=== PATIENT | female | born 1955 | race Caucasian/White ===

== ENCOUNTER 2019-03-23 15:50 | Observation (INO) | payer MEDICARE ==
[~2019-03-23] VITALS: Ht 167.6 cm; Wt 124.7 kg
--- OUTSIDE RECORDS SUMMARY | 2019-03-23 15:54 | XMS REPORT | Clinical Summary ---
Author Author [facility] Organization [facility] Address Unknown Phone Unavailable Care Team Providers Care Rate Examiner Name Role Phone Lu Nieto MD PCP Allergies Comments Active Allergy Reactions Severity Noted Date Anaphylaxis Hydromorphone High 12/04/2018 Fingers and lips turn black Flu Vaccine Shortness Of High 08/18/2017 [id number](36mo,Up) Breath Bleeding and vomiting Sitagliptin Other (See 08/18/2017 Comments) Bleeding and vomiting Metformin Other (See 08/18/2017 Comments) Fingers and lips turn black Pneumococcal Vaccine Shortness Of High 04/12/2018 Breath Medications End Date Status Medication Sig Dispensed Refills Start Date Active midodrine (PROAMATINE) 10 Take 10 mg by 0 MG tablet mouth See Admin Instructions. Twice a day three times a week (on dialysis days: MWF) Active lidocaine-prilocaine Apply 1 0 (EMLA) 2.5-2.5 % cream application topically 3 (three) times a week. Friday, Friday, Friday One hour prior to dialysis session to right arm Active PARoxetine (PAXIL) 20 MG Take 20 mg by 0 tablet mouth every morning. Active levothyroxine (SYNTHROID, Take 1 tablet 90 tablet 0 LEVOXYL) 25 mcg tablet (25 mcg 9 total) by mouth daily. Active insulin DETEMIR (LEVEMIR) Inject 45 5 pen 0 100 unit/mL (3 mL) Units under 9 insulin pen the skin 2 (two) times a day. Active insulin lispro (HUMALOG) Inject 10-15 5 pen 0 100 unit/mL injection pen Units under 9 the skin 3 (three) times a day before meals. Per Sliding Scale 07/23/2018 Discontinued insulin ASPART (NovoLOG) Inject 7-10 0 100 unit/mL insulin pen Units under the skin 3 (three) times a day before meals. Per sliding scale 07/23/2018 Discontinued PARoxetine (PAXIL) 20 MG Take 1 tablet 90 tablet 1 tabletIndications: (20 mg total) 8 Anxiety by mouth every morning. 04/12/2018 Discontinued lisinopril Take 20 mg by 0 (PRINIVIL,ZESTRIL) 20 mg mouth daily. tablet 07/25/2018 Discontinued levothyroxine (SYNTHROID, 1 tab daily 90 tablet 1 LEVOXYL) 25 mcg every morning 8 tabletIndications: Acquired hypothyroidism 07/14/2018 Discontinued insulin DETEMIR (LEVEMIR Inject 35 0 FLEXTOUCH U-100 INSULN) Units under 2 100 unit/mL (3 mL) the skin 2 insulin pen (two) times a day. 04/12/2018 Discontinued lidocaine-prilocaine Apply to 30 g 0 (EMLA) 2.5-2.5 % affected arm 8 creamIndications: ESRD an hour , (end stage renal disease) cover with (HCC) saran wrap prior to sticking the AVF 04/02/2018 acetaminophen-codeine Take 1 tablet 40 tablet 0 (TYLENOL WITH CODEINE #3) by mouth 8 300-30 mg per tablet every 4 (four) hours as needed for moderate pain for up to 10 days. 05/14/2018 sevelamer (RENVELA) 800 Take 2 180 tablet 0 mg tablet tablets 8 (1,600 mg total) by mouth 3 (three) times a day with meals for 30 days. 04/20/2018 miconazole (MICOTIN) 2 % Insert 1 45 g 0 vaginal cream applicator 8 into the vagina nightly for 6 days. 04/20/2018 miconazole (MICOTIN) 100 Insert 1 6 0 mg vaginal suppository suppository suppository 8 (100 mg total) into the vagina nightly for 6 days. 07/23/2018 Discontinued insulin DETEMIR (LEVEMIR Inject 35 5 pen 0 FLEXTOUCH U-100 INSULN) Units under 8 100 unit/mL (3 mL) the skin 2 insulin pen (two) times a day. 09/03/2018 Discontinued insulin DETEMIR (LEVEMIR 40 units qam 5 pen 0 FLEXTOUCH U-100 INSULN) and 40 units 8 100 unit/mL (3 mL) qpm insulin penIndications: Type 2 diabetes mellitus with hyperglycemia, with long-term current use of insulin ([facility]) 09/03/2018 Discontinued insulin ASPART (NovoLOG) 10-15 units 5 5 pen 0 100 unit/mL insulin min prior to 8 penIndications: Type 2 each meal diabetes mellitus with hyperglycemia, with long-term current use of insulin ([facility]) 08/10/2018 Discontinued PARoxetine (PAXIL) 40 MG Take 1 tablet 90 tablet 0 tabletIndications: (40 mg total) 8 Anxiety by mouth every morning. 09/03/2018 Discontinued levothyroxine (SYNTHROID, 1 tab daily 90 tablet 1 LEVOXYL) 25 mcg every morning 8 tabletIndications: Acquired hypothyroidism 12/14/2018 Discontinued PARoxetine (PAXIL) 20 MG 1 tab daily 30 tablet 1 tabletIndications: 8 Anxiety 10/03/2018 bacitracin ointment tube Apply 14 g 0 topically 2 8 (two) times a day for 30 days. 10/08/2018 ergocalciferol (VITAMIN Take 1 4 capsule 0 D2) 50,000 unit capsule capsule 8 (50,000 Units total) by mouth once a week for 30 days. 09/25/2018 Discontinued insulin DETEMIR (LEVEMIR 40 units qam 5 pen 0 FLEXTOUCH U-100 INSULN) and 40 units 8 100 unit/mL (3 mL) qpm insulin penIndications: Type 2 diabetes mellitus with hyperglycemia, with long-term current use of insulin ([facility]) 09/27/2018 Discontinued insulin ASPART (NovoLOG) 10-15 units 5 5 pen 0 100 unit/mL insulin min prior to 8 penIndications: Type 2 each meal diabetes mellitus with hyperglycemia, with long-term current use of insulin ([facility]) 12/14/2018 Discontinued levothyroxine (SYNTHROID, 1 tab daily 90 tablet 1 LEVOXYL) 25 mcg every morning 8 tabletIndications: Acquired hypothyroidism 09/10/2018 acetaminophen-codeine Take 1 tablet 20 tablet 0 (TYLENOL WITH CODEINE #3) by mouth 8 300-30 mg per tablet every 6 (six) hours as needed for moderate pain for up to 7 days. 12/14/2018 Discontinued hydrOXYzine (ATARAX) 25 1 tab as 30 tablet 1 MG tabletIndications: needed for 8 Anxiety anxiety 11/25/2018 Discontinued insulin DETEMIR (LEVEMIR 40 units qam 24 pen 1 FLEXTOUCH U-100 INSULN) and 40 units 8 100 unit/mL (3 mL) qpm insulin penIndications: Type 2 diabetes mellitus with hyperglycemia, with long-term current use of insulin ([facility]) 10/02/2018 Discontinued insulin ASPART (NovoLOG) 10-15 units 5 15 pen 1 100 unit/mL insulin min prior to 8 penIndications: Type 2 each meal diabetes mellitus with hyperglycemia, with long-term current use of insulin ([facility]) 12/14/2018 Discontinued insulin lispro (HumaLOG Inject to 15 pen 0 KwikPen Insulin) 100 10-15 units 5 8 unit/mL injection pen min prior to each meal TDD 45 units 11/25/2018 Discontinued semaglutide (OZEMPIC) Inject 0.5 mg 9 mL 1 0.25 mg or 0.5 mg(2 under the 8 mg/1.5 mL) pen injector skin once a week. 12/14/2018 Discontinued insulin DETEMIR (LEVEMIR 40 units qam 24 pen 2 FLEXTOUCH U-100 INSULN) and 40 units 9 100 unit/mL (3 mL) qpm insulin penIndications: Type 2 diabetes mellitus with hyperglycemia, with long-term current use of insulin ([facility]) 12/14/2018 Discontinued doxycycline (VIBRA-TABS) Take 1 tablet 14 tablet 0 100 MG tablet (100 mg 9 total) by mouth 2 (two) times a day for 7 days. 12/12/2018 amoxicillin (AMOXIL) 500 Please take 5 capsule 0 MG capsule 500 mg daily 9 for 5 days, please take after dialysis on your dialysis days. 02/26/2019 Discontinued hydrOXYzine (ATARAX) 25 Take 25 mg by 0 MG tablet mouth every 8 (eight) hours as needed for itching. 03/23/2019 Discontinued insulin DETEMIR (LEVEMIR) Inject 45 0 100 unit/mL (3 mL) Units under insulin pen the skin 2 (two) times a day. 03/23/2019 Discontinued insulin lispro (HUMALOG) Inject 10-15 0 100 unit/mL injection pen Units under the skin 3 (three) times a day before meals. Per Sliding Scale 03/23/2019 Discontinued levothyroxine (SYNTHROID, Take 25 mcg 0 LEVOXYL) 25 mcg tablet by mouth daily. 02/27/2019 Discontinued cefixime (SUPRAX) 400 mg Take 1 7 capsule 0 capsule capsule (400 9 mg total) by mouth daily for 7 days. 03/08/2019 acetaminophen-codeine Take 1 tablet 20 tablet 0 (TYLENOL WITH CODEINE #3) by mouth 9 300-30 mg per tablet every 4 (four) hours as needed for moderate pain for up to 10 days. 02/28/2019 Discontinued cefixime (SUPRAX) 400 mg Take 400 mg 0 capsule by mouth 9 daily. For 7 days from 02/21/19 - 02/27/19 Active Problems Problem Noted Date Complications, dialysis, catheter, mechanical 02/27/2019 Shortness of breath 12/14/2018 Right arm pain 12/02/2018 Dialysis AV fistula malfunction 12/02/2018 Overview: Added automatically from request for surgery [id number] History of weight loss surgery 09/27/2018 Labile blood pressure 09/27/2018 History of colonoscopy 2016 09/27/2018 PVD (peripheral vascular disease) 09/27/2018 Bypass graft stenosis 09/16/2018 Overview: Added automatically from request for surgery [id number] Acquired hypothyroidism 08/31/2018 Acute pulmonary edema 08/29/2018 Medical non-compliance 07/25/2018 Ingrown toenail without infection 07/25/2018 Ericka albicans infection 04/13/2018 Postural dizziness with presyncope 04/12/2018 Decubitus ulcer of buttock, stage 1 04/12/2018 Malfunction of arteriovenous dialysis fistula 03/19/2018 Last Assessment & Plan: Will need fistulogram and intervention to allow successful use of AVF after infiltration. 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, with long-term current use of insulin Morbid obesity with BMI of 40.0-44.9, adult 12/22/2017 Hemodialysis-associated hypotension 12/19/2017 ESRD (end stage renal disease) 12/08/2017 Overview: Added automatically from request for surgery [id number] Incomplete bladder emptying 11/26/2017 Vaginal atrophy 11/26/2017 Recurrent UTI 11/26/2017 Atypical chest pain 10/02/2017 Overview: W/u completed by cardiology and was negative as per pt and sister Neck injury,cervicalgia >15 years ago 09/02/2017 History of fall , since neck injury 08/19/2017 Overview: > 1 year ago ,evaluated by neurology ,has been in wheel chair since than Weakness of right side of body 08/19/2017 Overview: Difficulty with mostly R hand /foot : chronic in nature L ast Assessment & Plan: Evaluated in s/p MRI in the past Evaluated in [facility] by neurosurgery Pt also with many year history of R sided neck pain that shoots down both arms, R>L, to distal thumb/index finger. She also describes long history of upper extremity weakness and difficulty with fine finger movements which has progressed to the point that her right hand is now contracted, unable to move. She states that she has a history of frequent falls and because of this has received many serial MRIs of her spine, but thelast was roughly [address] [facility]. We do not have these records. She otherwise denies numbness and bowel/bladder incontinence. Anxiety 08/18/2017 Wheel chair as ambulatory aid 08/18/2017 Acute right ankle pain 08/18/2017 S/P right knee surgery 08/18/2017 Gait abnormality 08/18/2017 Encounters Care Team Description Date Type Specialty Aixa Whyte MA 03/23/2019 Refill Internal Medicine Lu Nieto MD 03/23/2019 Telephone Internal Medicine ProviderRashard MD 03/19/2019 Orders Only Family Medicine ProviderRashard MD 03/18/2019 Orders Only Internal Medicine Lu Nieto MD Hospitalization within last 30 days (Primary Dx); Neck pain; Chronic bilateral low back pain with right-sided sciatica; Uncontrolled type 2 diabetes mellitus with chronic kidney disease on chronic dialysis, with long-term current use of insulin (HCC); Acquired hypothyroidism; Need for home health care; Hemodialysis-associated hypotension; Anxiety; Primary insomnia 03/17/2019 Office Visit Internal Medicine Shayla Antonio RN 03/11/2019 Telephone Cardiovascular Sharda Heaton MD Joglekar, Swati, MD ESRD (end stage renal disease) ([facility]) (Primary Dx); Complications, mechanical, catheter, dialysis, initial encounter (HCC) 02/27/2019 Emergency General Internal Medicine - 02/28/2019 Jarvis Leblanc MD RUE Fistulogram 02/26/2019 Surgery Vascular Surgery Ana Hudson MD 02/26/2019 Anesthesia Vascular Surgery Event Jarvis Leblanc MD Malfunction of arteriovenous dialysis fistula, initial encounter ([facility]); ESRD (end stage renal disease) ([facility]) 02/26/2019 [facility] Vascular Surgery Encounter Adam Abarca DO Urinary tract infection without hematuria, site unspecified (Primary Dx) 02/18/2019 Emergency Emergency Medicine - 02/19/2019 02/18/2019 Travel Shayla Antonio RN 02/18/2019 Telephone Cardiovascular Jarvis Leblanc MD Malfunction of arteriovenous dialysis fistula, initial encounter ([facility]) (Primary Dx); ESRD (end stage renal disease) ([facility]) 02/17/2019 Office Visit Cardiovascular Shayla Antonio RN Malfunction of arteriovenous dialysis fistula, initial encounter ([facility]) (Primary Dx); ESRD (end stage renal disease) ([facility]) 02/17/2019 Prep for Cardiovascular Surgery Silvina Lanza MA 02/15/2019 Telephone Endocrinology Bindu Fiore MD Blood blister (Primary Dx) 02/01/2019 Emergency Emergency Medicine - 02/02/2019 02/01/2019 Travel Lu Nieto MD 02/01/2019 Telephone Family Medicine Yobani Stevenson Jr., MD Insulin overdose, accidental or unintentional, initial encounter (Primary Dx) 01/28/2019 Emergency Emergency Medicine Cony Connor MD 01/28/2019 Documentation Endocrinology Amy Chamberlain MA 01/28/2019 Telephone Endocrinology Aixa Whyte MA 01/28/2019 Telephone Internal Medicine Shayla Antonio RN 01/12/2019 Telephone Cardiovascular Shayla Antonio RN Malfunction of arteriovenous dialysis fistula, subsequent encounter (Primary Dx) 01/12/2019 Orders Only Cardiovascular Lu Nieto MD 01/07/2019 Telephone Internal Medicine Lu Nieto MD 01/05/2019 Telephone Internal Medicine Eusebio Middleton MA End stage renal disease (HCC) (Primary Dx) 12/28/2018 Orders Only Family Medicine Lu Nieto MD 12/25/2018 Telephone Internal Medicine Kami Ojeda MD Matus, Heidi, MD Clewing, Johanna, MD Shortness of breath (Primary Dx); Hypervolemia, unspecified hypervolemia type; ESRD on dialysis (HCC); Infection of arteriovenous fistula, initial encounter (HCC); Other hypervolemia 12/14/2018 [facility] Internal Medicine - Encounter 12/16/2018 Shayla Antonio RN Malfunction of arteriovenous dialysis fistula, initial encounter (HCC) (Primary Dx) 12/04/2018 Orders Only Cardiovascular Nii Galicia MD Badam, Manjulatha, MD Ogbonna, Martina C., MD Right arm pain (Primary Dx); Malfunction of arteriovenous graft, initial encounter (HCC); Malfunction of arteriovenous dialysis fistula, initial encounter (HCC) 12/02/2018 [facility] Internal Medicine - Encounter 12/07/2018 Heather Voss MD Uncontrolled type 2 diabetes mellitus with hyperglycemia (HCC) (Primary Dx); Type 2 diabetes mellitus with hyperglycemia, with long-term current use of insulin (HCC); Thyroid nodule 11/25/2018 Office Visit Endocrinology Rosanna Allison MD Visit for wound check (Primary Dx) 11/13/2018 Office Visit Cardiovascular Shayla Antonio RN 11/04/2018 Telephone Cardiovascular Beba Reddy MA 10/22/2018 Telephone Endocrinology Shayla Antonio RN 10/16/2018 Telephone Cardiovascular Lu Nieto MD Cubb, Trisha Dee, MD Uncontrolled type 2 diabetes mellitus with hyperglycemia (HCC) (Primary Dx); Type 2 diabetes mellitus with hyperglycemia, with long-term current use of insulin (HCC); Hypothyroidism, unspecified type; Thyroid nodule 10/15/2018 Office Visit Endocrinology Aixa Whyte MA 10/02/2018 Telephone Internal Medicine Jarvis Leblanc MD RIGHT UPPER EXTREMITY FISTULOGRAM, ANGIOPLASTY, under c-arm 09/28/2018 Surgery Vascular Surgery Lo Maya MD 09/28/2018 Anesthesia Vascular Surgery Event Jarvis Leblanc MD ESRD (end stage renal disease) (HCC); Malfunction of arteriovenous dialysis fistula, sequela 09/28/2018 [facility] General Internal Medicine - Encounter 09/29/2018 Miguel Mederos MD Type 2 diabetes mellitus with hyperglycemia, with long-term current use of insulin (HCC) 09/25/2018 Refill Internal Medicine Lu Nieto MD Annual physical exam (Primary Dx); Need for home health care; Anxiety; Type 2 diabetes mellitus with hyperglycemia, with long-term current use of insulin (HCC); ESRD (end stage renal disease) (HCC); Malfunction of arteriovenous dialysis fistula, subsequent encounter; Medical non-compliance; Bone disorder 09/24/2018 Office Visit Internal Medicine Ene Grimm MA Appointment 09/17/2018 Telephone Cardiology Jarvis Leblanc MD Malfunction of arteriovenous dialysis fistula, subsequent encounter (Primary Dx); End stage renal disease (HCC); Bypass graft stenosis, initial encounter (HCC) 09/16/2018 Office Visit Cardiovascular Shayla Antonio RN ESRD (end stage renal disease) (HCC) (Primary Dx); Malfunction of arteriovenous dialysis fistula, sequela 09/16/2018 Prep for Cardiovascular Surgery Jarvis Leblanc MD Malfunction of arteriovenous dialysis fistula, initial encounter (HCC) 09/14/2018 Hospital Procedural Cardiology Encounter Lu Nieto MD 09/14/2018 Telephone Internal Medicine Lu Nieto MD End stage renal disease (HCC) (Primary Dx); Bypass graft stenosis, initial encounter (HCC) 09/04/2018 Telephone Internal Medicine Shayla Antonio RN Malfunction of arteriovenous dialysis fistula, initial encounter (HCC) (Primary Dx) 09/02/2018 Orders Only Cardiovascular Shayla Antonio RN Malfunction of arteriovenous dialysis fistula, initial encounter (HCC) (Primary Dx) 09/02/2018 Orders Only Cardiovascular Bindu Fiore MD Badam, Manjulatha, MD Adrogue, Horacio E., MD Acute pulmonary edema (HCC) (Primary Dx); ESRD (end stage renal disease) (HCC); Uncontrolled type 2 diabetes mellitus with chronic kidney disease on chronic dialysis, with long-term current use of insulin (HCC); Type 2 diabetes mellitus with hyperglycemia, with long-term current use of insulin (HCC); Acquired hypothyroidism 08/29/2018 [facility] General Internal Medicine - Encounter 09/03/2018 Lu Nieto MD 08/28/2018 Telephone Internal Medicine Chino Jeffries MD Shortness of breath (Primary Dx) 08/23/2018 Emergency Emergency Medicine Aixa Whyte MA 08/10/2018 Telephone Internal Medicine Lu Nieto MD Acquired hypothyroidism 07/25/2018 Orders Only Internal Medicine Lu Nieto MD Type 2 diabetes mellitus with hyperglycemia, with long-term current use of insulin 07/23/2018 Lab Lab Lu Nieto MD Medical non-compliance (Primary Dx); Type 2 diabetes mellitus with hyperglycemia, with long-term current use of insulin; Anxiety; Hemodialysis-associated hypotension; Acquired hypothyroidism; Ingrown toenail without infection; Other specified hypotension 07/23/2018 Office Visit Internal Medicine Lu Nieto MD 07/14/2018 Telephone Internal Medicine Lu Nieto MD Essential hypertension 06/21/2018 Refill Internal Medicine Maria Esther Hernandez MA 06/15/2018 Telephone Cardiovascular Lu Nieto MD Essential hypertension 05/22/2018 Refill Internal Medicine Eva Concepcion NP ESRD (end stage renal disease) on dialysis (Primary Dx) 05/19/2018 Office Visit Cardiovascular Lu Nieto MD Essential hypertension 05/09/2018 Refill Internal Medicine Sharda Heaton MD Samuel, Leena L., MD ESRD (end stage renal disease) (Primary Dx); Postural dizziness with presyncope; Uncontrolled type 2 diabetes mellitus with stage 4 chronic kidney disease, with long-term current use of insulin 04/12/2018 Emergency General Internal Medicine - 04/14/2018 Lu Nieto MD Essential hypertension 04/11/2018 Refill Internal Medicine Jarvis Leblanc MD RIGHT UPPER EXTREMITY FISTULOGRAM, POSSIBLE ANGIOPLASTY, POSSIBLE STENTING 03/23/2018 Surgery Vascular Surgery Sangita Arriola CRNA 03/23/2018 Anesthesia Vascular Surgery Event Jarvis Leblanc MD ESRD (end stage renal disease) (Primary Dx) 03/23/2018 Hospital Vascular Surgery Encounter Jarvis Leblanc MD ESRD (end stage renal disease) 03/23/2018 Hospital Radiology Encounter after 03/22/2018 Immunizations Name Dates Previously Given Next Due Hepatitis B 11/17/2017 Family History Medical History Relation Name Comments Congenital heart disease Brother Diabetes Brother dialysis No Known Problems Brother Diabetes Father Diabetes Mother No Known Problems Sister Relation Name Status Comments Brother Brother Alive Brother Alive Father (Age 78) Maternal Grandfather Maternal Grandmother Mother (Age 63) Paternal Grandfather Paternal Grandmother Sister Alive Social History Date Tobacco Use Types Packs/Day Years Used Never Smoker Smokeless Tobacco: Never Used Alcohol Use Drinks/Week oz/Week Comments No Sex Assigned at Date Recorded Not on file Industry Job Start Date Occupation Not on file Not on file Not on file Travel End Travel History Travel Start No recent travel history available. Last Filed Vital Signs Time Taken Vital Sign Reading 03/17/2019 11:29 AM CDT Blood Pressure 122/80 03/17/2019 11:29 AM CDT Pulse 106 03/17/2019 11:29 AM CDT Temperature 36.6 C (97.8 F) 02/28/2019 8:22 AM CDT Respiratory Rate 16 03/17/2019 11:29 AM CDT Oxygen Saturation 96% - Inhaled Oxygen - Concentration 03/17/2019 11:29 AM CDT Weight 127 kg (280 lb) 03/17/2019 11:29 AM CDT Height 167.6 cm (5' 6") 03/17/2019 11:29 AM CDT Body Mass Index 45.19 Plan of Treatment Care Team Description Date Type Specialty Lu Nieto MD [address] [facility] [address] [place] [address] Shan Mar MD [address] [facility] [address] [place] [address] 03/26/2019 Office Visit Orthopedic Surgery Jarvis Leblanc MD [address] [facility] [address] [place], [place] [id number] 03/31/2019 Office Visit Cardiovascular Heather Voss MD [address] [facility] [address] [place], [place] [id number] 04/21/2019 Office Visit Endocrinology Lu Nieto MD [address] [facility] [address] [place] [address] 06/21/2019 Office Visit Internal Medicine Health Maintenance Due Date Last Done Comments BREAST CANCER SCREENING 11/17/2015 11/17/2013, 05/06/2011, 05/08/2010 65+ PNEUMOCOCCAL VACCINE 2018 (1 of 2 - PCV13) INFLUENZA VACCINE 07/19/2019 Postponed from 06/17/2019 (Not Indicated) DIABETIC FOOT EXAM 09/24/2019 09/24/2018 DIABETIC RETINAL EYE EXAM 01/16/2020 01/15/2018 PNEUMOCOCCAL 09/17/2025 Postponed from 2018 POLYSACCHARIDE VACCINE (Patient Refused) AGE 65 AND OVER SHINGLES VACCINES (#1) 09/17/2025 Postponed from 2003 (Patient Refused) COLON CANCER SCREENING 09/17/2026 09/17/2016 CERVICAL CANCER SCREENING Discontinued Implants Device Identifier Shelf Expiration Date Model / Serial / Lot Implanted Type Area Manufactur er 02/15/2020 [id number] / / [id number] Catheter Dialysis Glidepath Central Left: Chest BARD [id number] Symmetric Tip - Venous PERIPHERAL [id number] Catheters VASCULAR Implanted: Qty: 1 on 02/26/2019 by Jarvis Leblanc MD 09/16/2019 [id number] / / [id number] Catheter Dialysis Glidepath Implantabl N/A: N/A BARD [id number] Symmetric Tip - e Infusion PERIPHERAL [id number] Ports or VASCULAR Implanted: 12/02/2017 (Quantity not Accessorie on file) s 05/16/2020 [id number] / / [id number] Catheter Dialysis Glidepath Implantabl N/A: N/A BARD [id number] Symmetric Tip - e Infusion PERIPHERAL [id number] Ports or VASCULAR Implanted: 09/02/2018 (Quantity not Accessorie on file) s 06/03/2022 [id number] / / [id number] Clip Ligtng Weck Hemoclip Plus W/ Medical Right: Arm, WECK Tape Ti Sm - [id number] Clips for Lower CLOSURE Implanted: Qty: 2 on 12/22/2017 by Internal SYSTEMS Jarvis Leblanc MD Use 06/30/2022 [id number] / / [id number] Clip Ligtng Weck Hemoclip Plus W/ Medical Right: Arm, TELEFLEX Tape Ti Med - [id number] Clips for Lower MEDICAL Implanted: Qty: 2 on 12/22/2017 by Internal Jarvis Leblanc MD Use [id number] / / Catheter Quality Control Checker 4x75cm 6mm Conquest - Surgical N/A: N/A BARD [id number] Implants; PERIPHERAL Implanted: 03/23/2018 (Quantity not Expanders; VASCULAR on file) Extenders; Surgical Wires Procedures Comments Procedure Name Priority Date/Time Associated Diagnosis OBTAIN MEDICAL RECORDS Routine 03/19/2019 OBTAIN MEDICAL RECORDS Routine 03/18/2019 POC GLUCOSE Routine 02/28/2019 12:14 PM CDT POC GLUCOSE Routine 02/28/2019 8:24 AM CDT ESTIMATED GFR Routine 02/28/2019 4:15 AM CDT COMPREHENSIVE METABOLIC Routine 02/28/2019 PANEL 4:15 AM CDT HC COMPLETE BLD COUNT Routine 02/28/2019 W/AUTO DIFF 4:15 AM CDT TROPONIN Timed 02/28/2019 4:15 AM CDT ECG 12-LEAD STAT 02/28/2019 1:32 AM CDT POC GLUCOSE Routine 02/27/2019 11:32 PM CDT POC GLUCOSE Routine 02/27/2019 7:55 PM CDT HEPATITIS B SURFACE STAT 02/27/2019 ANTIGEN 6:37 PM CDT POC GLUCOSE Routine 02/27/2019 4:40 PM CDT HEMODIALYSIS Routine 02/27/2019 4:07 PM CDT XR CHEST 1 VW PORTABLE STAT 02/27/2019 2:36 PM CDT ESTIMATED GFR Routine 02/27/2019 1:23 PM CDT HC COMPLETE BLD COUNT Routine 02/27/2019 W/AUTO DIFF 1:23 PM CDT COMPREHENSIVE METABOLIC Routine 02/27/2019 PANEL 1:23 PM CDT POC GLUCOSE Routine 02/26/2019 10:01 AM CDT POC GLUCOSE Routine 02/26/2019 9:24 AM CDT INSERTION, CATHETER, 02/26/2019 Malfunction of CENTRAL VENOUS, TUNNELED, 9:00 AM CDT arteriovenous dialysis WITH PORT, WITH C-ARM fistula, initial FLUOROSCOPIC GUIDANCE encounter (HCC) ESRD (end stage renal disease) (HCC) VENOGRAM, EXTREMITY 02/26/2019 Malfunction of 9:00 AM CDT arteriovenous dialysis fistula, initial encounter (HCC) ESRD (end stage renal disease) (HCC) OR [place] < 1 HOUR Routine 02/26/2019 9:00 AM CDT POC GLUCOSE Routine 02/26/2019 8:22 AM CDT POC PANEL 4 Routine 02/26/2019 7:50 AM CDT US LIMITED STAT 02/19/2019 12:10 AM CDT ESTIMATED GFR STAT 02/18/2019 10:58 PM CDT COMPREHENSIVE METABOLIC STAT 02/18/2019 PANEL 10:58 PM CDT HC COMPLETE BLD COUNT STAT 02/18/2019 W/AUTO DIFF 10:58 PM CDT URINALYSIS STAT 02/18/2019 10:34 PM CDT ECG 12-LEAD STAT 02/02/2019 12:33 AM CDT XR FOOT 3+ VW RIGHT STAT 02/02/2019 12:18 AM CDT HC COMPLETE BLD COUNT STAT 02/01/2019 W/AUTO DIFF 11:52 PM CDT ESTIMATED GFR STAT 02/01/2019 10:04 PM CDT BASIC METABOLIC PANEL STAT 02/01/2019 10:04 PM CDT POC GLUCOSE Routine 01/28/2019 4:00 PM CDT POC GLUCOSE Routine 01/28/2019 2:49 PM CDT POC GLUCOSE Routine 01/28/2019 1:56 PM CDT POC GLUCOSE Routine 01/28/2019 1:06 PM CDT POC GLUCOSE Routine 12/16/2018 12:33 PM LAYER OFF POC GLUCOSE Routine 12/16/2018 11:07 AM LAYER OFF POC GLUCOSE Routine 12/16/2018 8:41 AM LAYER OFF HEMODIALYSIS Routine 12/16/2018 6:56 AM LAYER OFF ESTIMATED GFR Routine 12/16/2018 4:43 AM LAYER OFF BASIC METABOLIC PANEL Routine 12/16/2018 4:43 AM LAYER OFF HC COMPLETE BLD COUNT Routine 12/16/2018 W/AUTO DIFF 4:43 AM LAYER OFF VANCOMYCIN LEVEL, RANDOM Routine 12/16/2018 4:43 AM LAYER OFF POC GLUCOSE Routine 12/15/2018 8:52 PM LAYER OFF POC GLUCOSE Routine 12/15/2018 5:42 PM LAYER OFF US DUPLEX HEMODIALYSIS Routine 12/15/2018 AVG AVF ACCESS 3:45 PM LAYER OFF POC GLUCOSE Routine 12/15/2018 11:26 AM LAYER OFF POC GLUCOSE Routine 12/15/2018 10:14 AM LAYER OFF POC GLUCOSE Routine 12/15/2018 7:38 AM LAYER OFF ESTIMATED GFR Routine 12/15/2018 5:26 AM LAYER OFF HC COMPLETE BLD COUNT Routine 12/15/2018 W/AUTO DIFF 5:26 AM LAYER OFF PHOSPHORUS LEVEL Routine 12/15/2018 5:26 AM LAYER OFF MAGNESIUM LEVEL Routine 12/15/2018 5:26 AM LAYER OFF BASIC METABOLIC PANEL Routine 12/15/2018 5:26 AM LAYER OFF VITAMIN D 25 HYDROXY Routine 12/15/2018 LEVEL 5:26 AM LAYER OFF PARATHYROID HORMONE Routine 12/15/2018 5:26 AM LAYER OFF TRANSFERRIN LEVEL Routine 12/15/2018 5:26 AM LAYER OFF TOTAL IRON BINDING Routine 12/15/2018 CAPACITY 5:26 AM LAYER OFF FERRITIN LEVEL Routine 12/15/2018 5:26 AM LAYER OFF POC GLUCOSE Routine 12/14/2018 11:42 PM LAYER OFF POC GLUCOSE Routine 12/14/2018 10:46 PM LAYER OFF POC GLUCOSE Routine 12/14/2018 9:44 PM LAYER OFF TROPONIN Timed 12/14/2018 5:10 PM LAYER OFF BLOOD CULTURE, AEROBIC & Routine 12/14/2018 ANAEROBIC 5:10 PM LAYER OFF POC GLUCOSE Routine 12/14/2018 3:58 PM LAYER OFF HEMODIALYSIS Routine 12/14/2018 2:03 PM LAYER OFF LACTIC ACID LEVEL, SEPSIS Timed 12/14/2018 - NOW AND REPEAT 2X EVERY 12:47 PM LAYER OFF 3 HOURS TROPONIN Timed 12/14/2018 12:47 PM LAYER OFF XR CHEST 1 VW PORTABLE STAT 12/14/2018 12:14 PM LAYER OFF ECG ED PRELIMINARY Routine 12/14/2018 INTERPRETATION 10:47 AM LAYER OFF POC GLUCOSE Routine 12/14/2018 10:47 AM LAYER OFF ESTIMATED GFR STAT 12/14/2018 10:37 AM LAYER OFF LACTIC ACID LEVEL, SEPSIS Timed 12/14/2018 - NOW AND REPEAT 2X EVERY 10:37 AM LAYER OFF 3 HOURS PROTHROMBIN TIME WITH INR STAT 12/14/2018 10:37 AM LAYER OFF PARTIAL THROMBOPLASTIN STAT 12/14/2018 TIME (PTT) 10:37 AM LAYER OFF B NATRIURETIC PEPTIDE STAT 12/14/2018 10:37 AM LAYER OFF TROPONIN STAT 12/14/2018 10:37 AM LAYER OFF COMPREHENSIVE METABOLIC STAT 12/14/2018 PANEL 10:37 AM LAYER OFF HC COMPLETE BLD COUNT STAT 12/14/2018 W/AUTO DIFF 10:37 AM LAYER OFF ECG 12-LEAD STAT 12/14/2018 10:08 AM LAYER OFF POC GLUCOSE Routine 12/07/2018 4:04 PM LAYER OFF ESTIMATED GFR Routine 12/07/2018 3:55 PM LAYER OFF BASIC METABOLIC PANEL Routine 12/07/2018 3:55 PM LAYER OFF POC GLUCOSE Routine 12/07/2018 3:15 PM LAYER OFF CBC HEMOGRAM Routine 12/07/2018 2:30 PM LAYER OFF POC GLUCOSE Routine 12/07/2018 12:27 PM LAYER OFF HEMODIALYSIS Routine 12/07/2018 12:[address] UPPER EXTREMITY W Routine 12/07/2018 CONTRAST RIGHT 10:35 AM LAYER OFF POC GLUCOSE Routine 12/07/2018 7:56 AM LAYER OFF VANCOMYCIN LEVEL, RANDOM Routine 12/07/2018 4:59 AM LAYER OFF POC GLUCOSE Routine 12/07/2018 4:36 AM LAYER OFF POC GLUCOSE Routine 12/06/2018 8:32 PM LAYER OFF POC GLUCOSE Routine 12/06/2018 4:51 PM LAYER OFF POC GLUCOSE Routine 12/06/2018 12:11 PM LAYER OFF US DUPLEX VENOUS UPPER Routine 12/06/2018 EXTREMITY RIGHT 11:30 AM LAYER OFF POC GLUCOSE Routine 12/06/2018 8:06 AM LAYER OFF GRAM STAIN Routine 12/06/2018 7:44 AM LAYER OFF URINE CULTURE Routine 12/06/2018 7:44 AM LAYER OFF URINALYSIS SCREEN AND Routine 12/06/2018 MICROSCOPY, WITH REFLEX 5:18 AM LAYER OFF TO CULTURE POC GLUCOSE Routine 12/05/2018 8:35 PM LAYER OFF POC GLUCOSE Routine 12/05/2018 4:39 PM LAYER OFF POC GLUCOSE Routine 12/05/2018 11:14 AM LAYER OFF ESTIMATED GFR Routine 12/05/2018 9:00 AM LAYER OFF BASIC METABOLIC PANEL Routine 12/05/2018 9:00 AM LAYER OFF POC GLUCOSE Routine 12/05/2018 7:28 AM LAYER OFF POC GLUCOSE Routine 12/05/2018 5:41 AM LAYER OFF ESTIMATED GFR STAT 12/05/2018 4:28 AM LAYER OFF COMPREHENSIVE METABOLIC STAT 12/05/2018 PANEL 4:28 AM LAYER OFF HC COMPLETE BLD COUNT Routine 12/05/2018 W/AUTO DIFF 2:30 AM LAYER OFF VENOUS BLOOD GAS STAT 12/05/2018 2:20 AM LAYER OFF BLOOD CULTURE, AEROBIC & Routine 12/05/2018 ANAEROBIC 2:20 AM LAYER OFF BLOOD CULTURE, AEROBIC & Routine 12/05/2018 ANAEROBIC 2:15 AM LAYER OFF POC GLUCOSE Routine 12/05/2018 1:51 AM LAYER OFF ESTIMATED GFR STAT 12/05/2018 1:33 AM LAYER OFF BASIC METABOLIC PANEL STAT 12/05/2018 1:33 AM LAYER OFF BETA HYDROXYBUTYRATE STAT 12/05/2018 1:33 AM LAYER OFF POC GLUCOSE Routine 12/04/2018 9:18 PM LAYER OFF PARTIAL THROMBOPLASTIN Routine 12/04/2018 TIME (PTT) 4:30 PM LAYER OFF PROTHROMBIN TIME WITH INR Routine 12/04/2018 4:30 PM LAYER OFF ESTIMATED GFR Routine 12/04/2018 1:51 PM LAYER OFF HEPATITIS B SURFACE STAT 12/04/2018 ANTIGEN 1:51 PM LAYER OFF BASIC METABOLIC PANEL Routine 12/04/2018 1:51 PM LAYER OFF HC COMPLETE BLD COUNT Routine 12/04/2018 W/AUTO DIFF 1:51 PM LAYER OFF POC GLUCOSE Routine 12/04/2018 1:50 PM LAYER OFF XR CHEST 1 VW PORTABLE STAT 12/04/2018 9:12 AM LAYER OFF MAGNESIUM LEVEL Routine 12/04/2018 9:00 AM LAYER OFF ESTIMATED GFR Routine 12/04/2018 9:00 AM LAYER OFF BASIC METABOLIC PANEL Routine 12/04/2018 9:00 AM LAYER OFF CBC WITH PLATELET AND Routine 12/04/2018 DIFFERENTIAL 9:00 AM LAYER OFF ECG 12-LEAD STAT 12/04/2018 8:36 AM LAYER OFF POC GLUCOSE Routine 12/04/2018 7:15 AM LAYER OFF POC GLUCOSE Routine 12/04/2018 5:28 AM LAYER OFF POC GLUCOSE Routine 12/04/2018 3:35 AM LAYER OFF POC GLUCOSE Routine 12/04/2018 2:07 AM LAYER OFF POC GLUCOSE Routine 12/04/2018 1:32 AM LAYER OFF POC GLUCOSE Routine 12/03/2018 8:42 PM LAYER OFF POC GLUCOSE Routine 12/03/2018 5:52 PM LAYER OFF IR TUNNELED DIALYSIS Routine 12/03/2018 CATHETER PLACEMENT 5:29 PM LAYER OFF POC GLUCOSE Routine 12/03/2018 2:59 PM LAYER OFF HEMODIALYSIS Routine 12/03/2018 12:10 PM LAYER OFF POC GLUCOSE Routine 12/03/2018 10:47 AM LAYER OFF US DUPLEX HEMODIALYSIS STAT 12/03/2018 AVG AVF ACCESS 9:54 AM LAYER OFF ESTIMATED GFR Routine 12/03/2018 5:30 AM LAYER OFF HEMOGLOBIN A1C Routine 12/03/2018 5:30 AM LAYER OFF PARTIAL THROMBOPLASTIN Routine 12/03/2018 TIME (PTT) 5:30 AM LAYER OFF PROTHROMBIN TIME WITH INR Routine 12/03/2018 5:30 AM LAYER OFF COMPREHENSIVE METABOLIC Routine 12/03/2018 PANEL 5:30 AM LAYER OFF HC COMPLETE BLD COUNT Routine 12/03/2018 W/AUTO DIFF 5:30 AM LAYER OFF POC GLUCOSE Routine 12/03/2018 5:16 AM LAYER OFF POC GLUCOSE Routine 12/03/2018 12:06 AM LAYER OFF MANUAL DIFFERENTIAL STAT 12/02/2018 8:38 PM LAYER OFF ESTIMATED GFR STAT 12/02/2018 8:38 PM LAYER OFF COMPREHENSIVE METABOLIC STAT 12/02/2018 PANEL 8:38 PM LAYER OFF CBC WITH PLATELET AND STAT 12/02/2018 DIFFERENTIAL 8:38 PM LAYER OFF POC GLUCOSE Routine 11/25/2018 Uncontrolled type 2 8:35 AM LAYER OFF diabetes mellitus with hyperglycemia (HCC) US THYROID Routine 11/19/2018 Thyroid nodule 1:47 PM LAYER OFF THYROID PEROXIDASE Routine 10/17/2018 Hypothyroidism, ANTIBODY 10:59 AM LAYER OFF unspecified type T4, FREE Routine 10/17/2018 Hypothyroidism, 10:59 AM LAYER OFF unspecified type THYROID STIMULATING Routine 10/17/2018 Hypothyroidism, HORMONE 10:59 AM LAYER OFF unspecified type POC GLUCOSE Routine 10/15/2018 Uncontrolled type 2 1:25 PM LAYER OFF diabetes mellitus with hyperglycemia (HCC) POC GLUCOSE Routine 09/29/2018 8:26 AM LAYER OFF POC GLUCOSE Routine 09/28/2018 5:35 PM LAYER OFF POC GLUCOSE Routine 09/28/2018 1:37 PM LAYER OFF HEMODIALYSIS Routine 09/28/2018 12:33 PM LAYER OFF HEPATITIS B SURFACE STAT 09/28/2018 ANTIGEN 12:31 PM LAYER OFF POC GLUCOSE Routine 09/28/2018 10:56 AM LAYER OFF POC GLUCOSE Routine 09/28/2018 8:23 AM LAYER OFF OR FL < 1 HOUR Routine 09/28/2018 8:05 AM LAYER OFF FISTULOGRAPHY, DIALYSIS 09/28/2018 End stage renal disease SHUNT, AND DECLOTTING 7:30 AM LAYER OFF (HCC) Bypass graft stenosis, initial encounter ([facility]) Case Notes @[id number] SHAYLA POSTED CASE VIA DEPOT-R/S FROM 09/21 TO 09/28-08/19 12/04TW POC PANEL 4 Routine 09/28/2018 6:37 AM LAYER OFF US DUPLEX HEMODIALYSIS Routine 09/14/2018 Malfunction of AVG AVF ACCESS 2:15 PM CDT arteriovenous dialysis fistula, initial encounter (HCC) POC GLUCOSE Routine 09/03/2018 12:05 PM CDT POC GLUCOSE Routine 09/03/2018 7:23 AM CDT POC GLUCOSE Routine 09/02/2018 8:25 PM CDT POC GLUCOSE Routine 09/02/2018 6:14 PM CDT POC GLUCOSE Routine 09/02/2018 1:49 PM CDT IR TUNNELED DIALYSIS Routine 09/02/2018 CATHETER PLACEMENT 12:35 PM CDT POC GLUCOSE Routine 09/02/2018 12:27 PM CDT POC GLUCOSE Routine 09/02/2018 7:38 AM CDT HC COMPLETE BLD COUNT Routine 09/02/2018 W/AUTO DIFF 5:30 AM CDT ESTIMATED GFR Routine 09/02/2018 4:00 AM CDT BASIC METABOLIC PANEL Routine 09/02/2018 4:00 AM CDT MAGNESIUM LEVEL Routine 09/02/2018 4:00 AM CDT POC GLUCOSE Routine 09/01/2018 8:47 PM CDT POC GLUCOSE Routine 09/01/2018 2:17 PM CDT POC GLUCOSE Routine 09/01/2018 11:30 AM CDT HEMODIALYSIS Routine 09/01/2018 9:38 AM CDT US DUPLEX HEMODIALYSIS Routine 09/01/2018 AVG AVF ACCESS 8:45 AM CDT POC GLUCOSE Routine 09/01/2018 7:31 AM CDT POC GLUCOSE Routine 09/01/2018 4:38 AM CDT ESTIMATED GFR Routine 09/01/2018 4:00 AM CDT VITAMIN D 25 HYDROXY Routine 09/01/2018 LEVEL 4:00 AM CDT BASIC METABOLIC PANEL Routine 09/01/2018 4:00 AM CDT PHOSPHORUS LEVEL Routine 09/01/2018 4:00 AM CDT MAGNESIUM LEVEL Routine 09/01/2018 4:00 AM CDT HC COMPLETE BLD COUNT Routine 09/01/2018 W/AUTO DIFF 4:00 AM CDT POC GLUCOSE Routine 08/31/2018 8:51 PM CDT POC GLUCOSE Routine 08/31/2018 4:29 PM CDT POC GLUCOSE Routine 08/31/2018 3:26 PM CDT ULTRAFILTRATION Routine 08/31/2018 1:47 PM CDT POC GLUCOSE Routine 08/31/2018 1:29 PM CDT KAPPA LAMBDA FREE LIGHT Routine 08/31/2018 CHAIN WITH RATIO 9:43 AM CDT POC GLUCOSE Routine 08/31/2018 7:29 AM CDT HC COMPLETE BLD COUNT Routine 08/31/2018 W/AUTO DIFF 4:20 AM CDT SERUM ELECTROPHORESIS Routine 08/31/2018 4:00 AM CDT ESTIMATED GFR Routine 08/31/2018 4:00 AM CDT FOLATE LEVEL Routine 08/31/2018 4:00 AM CDT VITAMIN B12 LEVEL Routine 08/31/2018 4:00 AM CDT BASIC METABOLIC PANEL Routine 08/31/2018 4:00 AM CDT PHOSPHORUS LEVEL Routine 08/31/2018 4:00 AM CDT MAGNESIUM LEVEL Routine 08/31/2018 4:00 AM CDT HIV AG/AB COMBINATION Routine 08/31/2018 4:00 AM CDT POC GLUCOSE Routine 08/30/2018 8:49 PM CDT POC GLUCOSE Routine 08/30/2018 4:40 PM CDT POC GLUCOSE Routine 08/30/2018 11:31 AM CDT ECHOCARDIOGRAM 2D Routine 08/30/2018 COMPLETE W MMODE SPECTRAL 11:15 AM CDT COLOR DOPPLER ([id number]) HEMODIALYSIS Routine 08/30/2018 10:52 AM CDT POC GLUCOSE Routine 08/30/2018 8:07 AM CDT XR CHEST 1 VW PORTABLE STAT 08/30/2018 7:53 AM CDT PARTIAL THROMBOPLASTIN Routine 08/30/2018 TIME (PTT) 4:18 AM CDT PROTHROMBIN TIME WITH INR Routine 08/30/2018 4:18 AM CDT HC COMPLETE BLD COUNT Routine 08/30/2018 W/AUTO DIFF 4:18 AM CDT LACTIC ACID LEVEL, SEPSIS Routine 08/30/2018 - NOW AND REPEAT 2X EVERY 4:00 AM CDT 3 HOURS TROPONIN Routine 08/30/2018 4:00 AM CDT ESTIMATED GFR Routine 08/30/2018 4:00 AM CDT PHOSPHORUS LEVEL Routine 08/30/2018 4:00 AM CDT MAGNESIUM LEVEL Routine 08/30/2018 4:00 AM CDT BASIC METABOLIC PANEL Routine 08/30/2018 4:00 AM CDT POC GLUCOSE Routine 08/30/2018 1:04 AM CDT HEPATITIS B SURFACE STAT 08/29/2018 ANTIGEN 8:30 PM CDT VENOUS BLOOD GAS STAT 08/29/2018 4:55 PM CDT THYROID STIMULATING STAT 08/29/2018 HORMONE 4:45 PM CDT T4, FREE STAT 08/29/2018 4:45 PM CDT LIPID PANEL STAT 08/29/2018 4:45 PM CDT HEMOGLOBIN A1C STAT 08/29/2018 4:45 PM CDT PHOSPHORUS LEVEL STAT 08/29/2018 4:45 PM CDT MAGNESIUM LEVEL STAT 08/29/2018 4:45 PM CDT LACTIC ACID LEVEL, SEPSIS STAT 08/29/2018 - NOW AND REPEAT 2X EVERY 4:45 PM CDT 3 HOURS ESTIMATED GFR STAT 08/29/2018 4:45 PM CDT B NATRIURETIC PEPTIDE STAT 08/29/2018 4:45 PM CDT TROPONIN STAT 08/29/2018 4:45 PM CDT COMPREHENSIVE METABOLIC STAT 08/29/2018 PANEL 4:45 PM CDT HC COMPLETE BLD COUNT STAT 08/29/2018 W/AUTO DIFF 4:45 PM CDT XR CHEST 1 VW PORTABLE STAT 08/29/2018 4:40 PM CDT ECG 12-LEAD STAT 08/29/2018 4:30 PM CDT ECG 12-LEAD STAT 08/23/2018 1:50 PM CDT THYROID STIMULATING Routine 07/23/2018 Type 2 diabetes mellitus HORMONE 3:14 PM CDT with hyperglycemia, with long-term current use of insulin HEMOGLOBIN A1C Routine 07/23/2018 Type 2 diabetes mellitus 3:14 PM CDT with hyperglycemia, with long-term current use of insulin DC REMOVAL TUNNELED CV Routine 05/19/2018 ESRD (end stage renal CATH W/O SUBQ PORT OR 10:20 AM CDT disease) on dialysis PUMP POC GLUCOSE Routine 04/14/2018 12:43 PM CDT ECHOCARDIOGRAM 2D Routine 04/14/2018 COMPLETE W MMODE SPECTRAL 9:23 AM CDT COLOR DOPPLER ([id number]) POC GLUCOSE Routine 04/14/2018 8:08 AM CDT ZZESTIMATED GFR Routine 04/14/2018 5:07 AM CDT MAGNESIUM LEVEL Routine 04/14/2018 5:07 AM CDT BASIC METABOLIC PANEL Routine 04/14/2018 5:07 AM CDT HC COMPLETE BLD COUNT Routine 04/14/2018 W/AUTO DIFF 5:07 AM CDT PHOSPHORUS LEVEL Routine 04/14/2018 5:07 AM CDT POC GLUCOSE Routine 04/13/2018 9:06 PM CDT XR CHEST 2 VW Routine 04/13/2018 5:53 PM CDT POC GLUCOSE Routine 04/13/2018 5:00 PM CDT HEPATITIS B SURFACE Routine 04/13/2018 ANTIGEN 12:05 PM CDT POC GLUCOSE Routine 04/13/2018 11:17 AM CDT XR CHEST 1 VW PORTABLE Routine 04/13/2018 10:30 AM CDT HEMODIALYSIS Routine 04/13/2018 10:14 AM CDT IRON LEVEL STAT 04/13/2018 10:14 AM CDT TRANSFERRIN LEVEL STAT 04/13/2018 10:14 AM CDT FERRITIN LEVEL STAT 04/13/2018 10:14 AM CDT POC GLUCOSE Routine 04/13/2018 7:34 AM CDT TROPONIN Routine 04/13/2018 12:36 AM CDT TOTAL IRON BINDING Routine 04/13/2018 CAPACITY 12:36 AM CDT FERRITIN LEVEL Routine 04/13/2018 12:36 AM CDT ZZESTIMATED GFR Routine 04/13/2018 12:36 AM CDT C-REACTIVE PROTEIN Routine 04/13/2018 12:36 AM CDT T4, FREE Routine 04/13/2018 12:36 AM CDT THYROID STIMULATING Routine 04/13/2018 HORMONE 12:36 AM CDT MAGNESIUM LEVEL Routine 04/13/2018 12:36 AM CDT BASIC METABOLIC PANEL Routine 04/13/2018 12:36 AM CDT PHOSPHORUS LEVEL Routine 04/13/2018 12:36 AM CDT B NATRIURETIC PEPTIDE Routine 04/13/2018 12:20 AM CDT SEDIMENTATION RATE Routine 04/13/2018 12:20 AM CDT HC COMPLETE BLD COUNT Routine 04/13/2018 W/AUTO DIFF 12:20 AM CDT HEMOGLOBIN A1C Routine 04/13/2018 12:20 AM CDT POC GLUCOSE Routine 04/12/2018 9:07 PM CDT POC GLUCOSE Routine 04/12/2018 8:01 PM CDT POC GLUCOSE Routine 04/12/2018 6:04 PM CDT POC GLUCOSE Routine 04/12/2018 5:15 PM CDT URINALYSIS SCREEN AND Routine 04/12/2018 MICROSCOPY, WITH REFLEX 4:20 PM CDT TO CULTURE GRAM STAIN Routine 04/12/2018 4:20 PM CDT URINE CULTURE Routine 04/12/2018 4:20 PM CDT ECG ED PRELIMINARY Routine 04/12/2018 INTERPRETATION 3:52 PM CDT DC CRITICAL CARE, E/M Routine 04/12/2018 30-74 MINUTES 3:52 PM CDT ZZESTIMATED GFR STAT 04/12/2018 3:38 PM CDT LACTIC ACID LEVEL STAT 04/12/2018 3:38 PM CDT HC COMPLETE BLD COUNT STAT 04/12/2018 W/AUTO DIFF 3:38 PM CDT TROPONIN STAT 04/12/2018 3:38 PM CDT LIPASE LEVEL STAT 04/12/2018 3:38 PM CDT MAGNESIUM LEVEL STAT 04/12/2018 3:38 PM CDT PHOSPHORUS LEVEL STAT 04/12/2018 3:38 PM CDT COMPREHENSIVE METABOLIC STAT 04/12/2018 PANEL 3:38 PM CDT ECG 12-LEAD Routine 04/12/2018 3:16 PM CDT POC GLUCOSE Routine 03/23/2018 8:45 AM CDT OR [place] < 1 HOUR Routine 03/23/2018 ESRD (end stage renal 8:40 AM CDT disease) FISTULOGRAPHY, DIALYSIS 03/23/2018 ESRD (end stage renal SHUNT, AND DECLOTTING 8:30 AM CDT disease) POC PANEL 4 Routine 03/23/2018 7:26 AM CDT after 03/22/2018 Results * Obtain medical records (03/19/2019) Only the most recent of 2 results within the time period is included. Narrative Performed At * POC glucose (02/28/2019 12:14 PM CDT) Only the most recent of 93 results within the time period is included. POC glucose 195 (H) 65 - 99 mg/dL [facility] Comment: [facility] Notified RN Meter ID: [id number] Draw Operator: Lynette Spicer Performing Organization Address [facility] Cent[facility] Phone Number [facility] DEPARTMENT OF [address] [place] [address] PATHOLOGY AND Pant[facility] MEDICINE [address] * Estimated GFR (02/28/2019 4:15 AM CDT) Only the most recent of 20 results within the time period is included. Estimated GFR 16 (A) mL/min/1.73 m2 [facility] Comment: [facility]OSPITAL CatergoryUnitsInte rpretation G1 >=90 Normal or high G2 60-89Mildly decreased [id number] Mildly to moderately decreased [id number] Moderately to severely decreased G4 15-29Severely decreased G5 <15Kidney failure The eGFR was calculated using the Chronic Kidney Disease Epidemiology Collaboration (CKD-EPI) equation. Interpretation is based on recommendations of the National Kidney Foundation-Kidney Disease Outcomes Quality Initiative (NKF-KDOQI) published in 2014. Specimen Plasma specimen Performing Organization Address [facility] Cent[facility]ode Phone Number [facility] DEPARTMENT OF [address] [place] [address] PATHOLOGY AND [facility] MEDICINE [address] * Troponin (02/28/2019 4:15 AM CDT) Only the most recent of 8 results within the time period is included. Troponin <0.30 0.00 - 0.30 ng/mL [facility] Comment: HOSPITAL 0.30 - 1.49 ng/mlMay indicate increased risk of acute coronary syndrome. >=1.5 ng/ml Consistent with acute myocardial infarction. The diagnostic value of a single normal or non-diagnostic result is questionable.Serial samples at 2-6 hour intervals are required to rule out acute myocardial injury. Specimen Plasma specimen Performing Organization Address City/[facility]/Zipcode Phone Number [facility] DEPARTMENT OF [address] [place] [address] PATHOLOGY AND GENOMIC MEDICINE [address] * CBC with platelet and differential (02/28/2019 4:15 AM CDT) Only the most recent of 20 results within the time period is included. WBC 5.85 4.50 - 11.00 k/uL [facility] RBC 4.22 4.20 - 5.50 m/uL [facility] HGB 13.4 12.0 - 16.0 g/dL [facility] HCT 44.5 37.0 - 47.0 % [facility] MCV 105.5 (H) 82.0 - 100.0 fL [facility] MCH 31.8 27.0 - 34.0 pg [facility] MCHC 30.1 (L) 31.0 - 37.0 g/dL [facility] RDW - SD 52.6 37.0 - 55.0 fL [facility] MPV 11.3 8.8 - 13.2 fL [facility] Platelet count 136 (L) 150 - 400 k/uL [facility] Nucleated RBC 0.00 /100 WBC [facility] Neutrophils 70.5 (H) 39.0 - 69.0 % [facility] Lymphocytes 15.0 (L) 25.0 - 45.0 % [facility] Monocytes 9.1 0.0 - 10.0 % [facility] Eosinophils 3.8 0.0 - 5.0 % [facility] Basophils 0.9 0.0 - 1.0 % [facility] Immature granulocytes 0.7Comment: "Immature 0.0 - 1.0 % [facility] granulocytes" (promyelocytes, HOSPITAL myelocytes, metamyelocytes) Specimen Blood Performing Organization Address City/[facility]/Zipcode Phone Number [facility] DEPARTMENT OF [address] [place] [id number] PATHOLOGY AND GENOMIC MEDICINE [address] * Comprehensive metabolic panel (02/28/2019 4:15 AM CDT) Only the most recent of 9 results within the time period is included. Sodium 136 135 - 148 mEq/L [facility] Potassium 4.4 3.5 - 5.0 mEq/L [facility] Chloride 97 (L) 98 - 112 mEq/L [facility] CO2 23 (L) 24 - 31 mEq/L [facility] Anion gap 16@ANIO (H) 7 - 15 mEq/L [facility] BUN 21 8 - 23 mg/dL [facility] Creatinine 2.89 (H) 0.50 - 0.90 mg/dL [facility] Glucose 232 (H) 65 - 99 mg/dL [facility] Calcium 8.1 (L) 8.8 - 10.2 mg/dL [facility] Protein 7.7 6.3 - 8.3 g/dL [facility] Comment: HOSPITAL 4.6-7.0 g/dL 1 week 4.4-7.6 g/dL 7 months-1year 5.1-7.3 g/dL 1-2 years5.6-7 .5 g/dL >3 years6.0-8 .0 g/dL 18-150 6.3-8.3 g/dL Albumin 3.1 (L) 3.5 - 5.0 g/dL [facility] A/G ratio 0.7 0.7 - 3.8 [facility] Alkaline phosphatase 176 (H) 35 - 104 U/L [facility] AST 26 10 - 35 U/L [facility] ALT 15 5 - 50 U/L [facility] Total bilirubin 0.3 0.0 - 1.2 mg/dL [facility] Specimen Plasma specimen Performing Organization Address City/State/Zipcode Phone Number [facility] DEPARTMENT OF [address] [place] [id number] [facility]Y [facility] [place] [address] HOSPITAL * ECG 12 lead (02/28/2019 1:32 AM CDT) Only the most recent of 7 results within the time period is included. Ventricular rate 85 [facility] Atrial rate 85 [facility] DC interval 126 [facility] QRSD interval 144 [facility] QT interval 406 [facility] QTC interval 483 [facility] P axis 1 66 [facility] QRS axis 1 36 [facility] T wave axis 55 [facility] EKG impression Normal sinus rhythm-Right [facility] M[facility] bundle branch block-Abnormal ECG-In automated comparison with ECG of 02-FEB-2019 00:33,-No significant change was found- Narrative Performed At Performing Organization Address City/[facility]/Zipcode Phone Number [facility] MUSE [address] [place] [address] * Hepatitis B surface antigen (02/27/2019 6:37 PM CDT) Only the most recent of 5 results within the time period is included. Hepatitis B surface Ag Non-reactive Non-reactive [facility] Specimen Blood Performing Organization Address [facility] Phone Number [facility] DEPARTMENT OF [address] [place] [phone] PATHOLOGY AND GENOMIC MEDICINE [place] [phone] [facility] * XR Chest 1 Vw Portable (02/27/2019 2:36 PM CDT) Only the most recent of 6 results within the time period is included. Narrative Performed At EXAMINATION:XR CHEST 1 VW PORTABLE [facility] CLINICAL HISTORY:chest pain COMPARISON:December 14, 2018 IMPRESSION: 1.Left jugular catheter extends into the right atrium. 2.Heart size is within normal limits for 3.There are some volume loss of the lung bases with mild vascular congestion. [facility]-[id number] Procedure Note Hm Interface, Radiology Results Incoming - 02/27/2019 2:40 PM CDT EXAMINATION: XR CHEST 1 VW PORTABLE CLINICAL HISTORY: chest pain COMPARISON: December 14, 2018 IMPRESSION: 1. Left jugular catheter extends into the right atrium. 2. Heart size is within normal limits for 3. There are some volume loss of the lung bases with mild vascular congestion. [facility]-[id number] Performing Organization Address [facility] Cent[facility]ode Phone Number [facility] [address] [place] [address] * OR [place] < 1 Hour (02/26/2019 9:00 AM CDT) Only the most recent of 3 results within the time period is included. Narrative Performed At EXAMINATION:OR [place]< 1 HOUR [facility] C-arm fluoroscopy was requested in OR. LOCATION: [facility] OR Room #1 PROCEDURE: Removal of Rt. TDC/Insertion of LT. TDC START: 08:40 END: 09:00 FLUORO TIME: 01:49 minutes DOSE: 24.23 TECH(S): CECE IMPRESSION: Separate operative report will be issued by the physician performing the procedure. [id number] Procedure Note Interface, Radiology Results Incoming - 02/26/2019 9:29 PM CDT EXAMINATION: OR FL < 1 HOUR C-arm fluoroscopy was requested in OR. LOCATION: [facility] Room #1 PROCEDURE: Removal of Rt. TDC/Insertion of LT. TDC START: 08:40 END: 09:00 FLUORO TIME: 01:49 minutes DOSE: 24.23 TECH(S): CECE IMPRESSION: Separate operative report will be issued by the physician performing the procedure. [id number] Performing Organization Address City/[facility]/[place] [address] * POC panel 4 (02/26/2019 7:50 AM CDT) Only the most recent of 3 results within the time period is included. POC sodium 135 135 - 148 mmol/L [facility] POC potassium 4.1 3.5 - 5.0 mmol/L [facility] POC hematocrit 43 37 - 47 % [facility] Comment: HOSPITAL Meter ID: [id number] Draw Operator: Ray Maria POC glucose 317 (H) 65 - 99 mg/dL [facility] Performing Organization Address [facility] Phone Number [facility] DEPARTMENT OF [address] [place] [address] PATHOLOGY AND GENOMIC MEDICINE [address] * [place] Limited (02/19/2019 12:10 AM CDT) Narrative Performed At EXAMINATION:US LIMITED [facility] CLINICAL HISTORY:Abd painunspecified, check size of bladder COMPARISON:None. IMPRESSION: Focused sonographic examination of the urinary bladder was performed. Grayscale and color Doppler images obtained. Urinary bladder measures 6.2 x 4.4 x 7.8 cm, with estimated volume of 111.4 mL. Patient noted unable to void further, representing mildly elevated postvoid residual. [facility]-[id number] Procedure Note Interface, Radiology Results Incoming - 02/19/2019 12:52 AM CDT EXAMINATION: US LIMITED CLINICAL HISTORY: Abd pain unspecified, check size of bladder COMPARISON: None. IMPRESSION: Focused sonographic examination of the urinary bladder was performed. Grayscale and color Doppler images obtained. Urinary bladder measures 6.2 x 4.4 x 7.8 cm, with estimated volume of 111.4 mL. Patient noted unable to void further, representing mildly elevated postvoid residual. [facility]-[id number] Performing Organization Address [facility] Phone Number [facility] [address] [place] [address] * Urinalysis (02/18/2019 10:34 PM CDT) Glucose, UA Trace (A) Negative [facility] Bilirubin, UA Positive@UBIL (A) Negative [facility] Ketones, UA 1+ (A) Negative [facility] Specific gravity, UA 1.020 1.001 - 1.035 [facility] Blood, UA Large (A) Negative [facility] pH, UA 7.0 5.0 - 8.5 [facility] Protein, UA 3+ (A) Negative [facility] Urobilinogen, UA <2.0 <2.0 [facility] Nitrite, UA Positive (A) Negative [facility] Leukocyte esterase, UA Small (A) Negative [facility] Color, UA Red [facility] Appearance, UA Cloudy [facility] Specimen Urine Performing Organization Address [facility] [place] [address] PATHOLOGY AND GENOMIC MEDICINE, [address] * XR Foot 3+ Vw Right (02/02/2019 12:18 AM CDT) Narrative Performed At EXAMINATION:XR FOOT 3VW RIGHT [facility] CLINICAL HISTORY:big toe blisterr o osteo COMPARISON:None. IMPRESSION: No evidence of acute right foot fracture or dislocation. No radiographic evidence of osteomyelitis. Diffuse osteopenia. Diffuse soft tissue swelling. [facility]-[id number] Procedure Note Hm Interface, Radiology Results Incoming - 02/02/2019 12:28 AM CDT EXAMINATION: XR FOOT 3 VW RIGHT CLINICAL HISTORY: big toe blister r o osteo COMPARISON: None. IMPRESSION: No evidence of acute right foot fracture or dislocation. No radiographic evidence of osteomyelitis. Diffuse osteopenia. Diffuse soft tissue swelling. [facility]-[id number] Performing Organization Address [facility] Phone Number [facility] [address] [place] [address] * Basic metabolic panel (02/01/2019 10:04 PM CDT) Only the most recent of 14 results within the time period is included. Sodium 138 135 - 148 mEq/L [facility] Potassium 5.1 (H) 3.5 - 5.0 mEq/L [facility] Chloride 104 98 - 112 mEq/L [facility] CO2 21 (L) 24 - 31 mEq/L [facility] Anion gap 13@ANIO 7 - 15 mEq/L [facility] BUN 68 (H) 8 - 23 mg/dL [facility] Creatinine 4.82 (H) 0.50 - 0.90 mg/dL [facility] Glucose 390 (H) 65 - 99 mg/dL [facility] Calcium 8.0 (L) 8.8 - 10.2 mg/dL [facility] Specimen Plasma specimen Performing Organization Address [facility] Phone Number [facility] DEPARTMENT OF [address] [place] [address] PATHOLOGY AND GENOMIC MEDICINE [address] * Vancomycin level, random (12/16/2018 4:43 AM LAYER OFF) Only the most recent of 2 results within the time period is included. Vancomycin, random 20.4 ug/mL [facility] Specimen Serum Performing Organization Address [facility] Phone Number [facility] DEPARTMENT OF [address] [place] [address] PATHOLOGY AND GENOMIC MEDICINE [address] * Us duplex hemodialysis avg avf access (12/15/2018 3:45 PM LAYER OFF) Only the most recent of 4 results within the time period is included. Narrative Performed At [facility] Vascular Ultrasound Laboratory AV Graft - Fistula Report [address] [place] [address] Pat.Name:CHRISTY FRANK Mark.ID:[id number] .Date: 12/15/2018 Refer.MD:CARLOS CHISHOLM MD Exam Time: 2:58:00 PMStudy Type:AV Graft - Fistula Height:66inWeight:278lb BSA: 2.3 u3TMSKfw:1955,63Y Sex: FEMALESonogrphr: Markos Leyva, RVT, RDMS Pat. Stat.:Inpatient Room:[address] TapeVol: , CPT - 4: 53510 Echo Event ID:[id number] Order ID:[id number] Reason for Study:Swelling and edema. PMH of DM, HTN, SOB, ESRD on HD. History / Clinical:DM, Obesity, HTN, CHF Procedures:Colorflow, Grayscale/2D, Pulsed wave Doppler Race:C SUMMARY: DUPLEX SCAN OBSERVATIONS: RIGHT: There is patent radial artery to cephalic vein AV fistula noted in the forearm. Disturbed, pulsatile colorflow, and low resistance Doppler signals are noted in the feeding brachial artery, through the anastomosis and into the draining cephalic vein. There is color disturbance with elevated velocities noted at the radiocephalic anastomosis ratio 5.3. Draining vein from cephalic vein connect to basilic vein in the upper arm with arterialized Doppler signals. Retrograde flow noted in the distal radial artery, distal to the anastomosis. DOPPLER FINDINGS: ARTERY/VEIN LOCATIONPSV (cm/sec) RIGHTBrachial Artery Proximal-third 232 Mid-fztoe455 Distal- Radial ArteryProximal-third 278 Mid-bzryb862 Distal-abimk598 Klpcbcxhefl387 (ratio: 5.3) Cephalic Vein (forearm) Fok-wykkw32Zndizzvv-cnfri 87 VOLUME FLOW: Buppquvg194 cc/min 687 cc/min PRELIMINARY FINDINGS:(edited) 1. Patent radial-cephalic AV-fistula noted in the right forearm. 2. >50% stenosis of the right radiocephalic AV fistula anastomosis (ratio 5.3) 3. Retrograde flow of the right radial artery distal to the anastomosis. 4. Volume flows ranges from 656 cc/min to 687 cc/min. PHYSICIAN INTERPRETATION: Adequate flow volume. More than 50% stenosis. Retrograde flow of the right radial artery distal to the anastomosis. Signed 12/15/2018 07:49 PM Rio Chapin MD, RPVI Procedure Note Interface, Radiology Results In - 12/15/2018 7:50 PM [facility] Vascular Ultrasound Laboratory AV Graft - Fistula Report [address] [place] [address] Pat.Name: CHRISTY FRANK Pat.ID: [id number] .Date: 12/15/2018 Refer.MD: CARLOS CHISHOLM MD Exam Time: 2:58:00 PM Study Type:AV Graft - Fistula Height: 66in Weight: 278lb BSA: 2.3 m2 Age: 9 1955,63Y Sex: FEMALE Sonogrphr: Markos Leyva RVT, [facility] Pat. Stat.:Inpatient Room: [address] Vol: , CPT - 4: 85422 Echo Event ID:[id number] Order ID: [id number] Reason for Study:Swelling and edema. PMH of DM, HTN, SOB, ESRD on HD. History / Clinical:DM, Obesity, HTN, CHF Procedures:Colorflow, Grayscale/2D, Pulsed wave Doppler Race: C SUMMARY: DUPLEX SCAN OBSERVATIONS: RIGHT: There is patent radial artery to cephalic vein AV fistula noted in the forearm. Disturbed, pulsatile colorflow, and low resistance Doppler signals are noted in the feeding brachial artery, through the anastomosis and into the draining cephalic vein. There is color disturbance with elevated velocities noted at the radiocephalic anastomosis ratio 5.3. Draining vein from cephalic vein connect to basilic vein in the upper arm with arterialized Doppler signals. Retrograde flow noted in the distal radial artery, distal to the anastomosis. DOPPLER FINDINGS: ARTERY/VEIN LOCATION PSV (cm/sec) RIGHT Brachial Artery Proximal-third 232 Mid-third 245 Distal-third 251 Radial Artery Proximal-third 278 Mid-third 141 Distal-third 144 Anastomosis 771 (ratio: 5.3) Cephalic Vein (forearm) Mid-third 92 Proximal-third 87 VOLUME FLOW: Brachial 656 cc/min 687 cc/min PRELIMINARY FINDINGS:(edited) 1. Patent radial-cephalic AV-fistula noted in the right forearm. 2. >50% stenosis of the right radiocephalic AV fistula anastomosis (ratio 5.3) 3. Retrograde flow of the right radial artery distal to the anastomosis. 4. Volume flows ranges from 656 cc/min to 687 cc/min. PHYSICIAN INTERPRETATION: Adequate flow volume. More than 50% stenosis. Retrograde flow of the right radial artery distal to the anastomosis. Signed 12/15/2018 07:49 PM Rio Chapin MD, RPVI Performing Organization Address City/[facility]/Zipcode Phone Number [facility] [address] [place] [address] * Total iron binding capacity (12/15/2018 5:26 AM LAYER OFF) Only the most recent of 2 results within the time period is included. Iron level 49 37 - 145 ug/dL [facility] Iron binding capacity 200 200 - 400 ug/dL [facility] % Saturation 24.5 15.0 - 38.0 % [facility] Specimen Plasma specimen Performing Organization Address [facility] Phone Number [facility] DEPARTMENT OF [address] [place] [address] PATHOLOGY AND GENOMIC MEDICINE [address] * Vitamin D 25 hydroxy level (12/15/2018 5:26 AM LAYER OFF) Only the most recent of 2 results within the time period is included. Vitamin D, 25-hydroxy 8.2 (L) 30.0 - 150.0 ng/mL [facility] Comment: HOSPITAL This assay reports the sum of 25-hydroxy vitamin D3 and 25-hydroxy vitamin D2. Reference range: 0-17 years: Deficiency: less than 20ng/mL Optimum level: greater than or equal to 20 ng/mL. 18 years and older: Deficiency: less than 20ng/mL Insufficiency: 20-29 ng/mL Optimum Level: 30-80 ng/mL The assay reportable range is 3.4155.9 ng/mL. Levels higher than 150 ng/mL may be associated with toxicity. If toxicity is clinically suspected and the reported result is >155.9 ng/mL,contact lab for alternative methods to obtain a definitivelevel. If separate quantitation of 25-hydroxy vitamin D3 and 25-hydroxy vitamin D2 is needed, please contact lab for alternative methods. Specimen Blood Performing Organization Address City/[facility]/Zipcode Phone Number [facility] [place] [address] PATHOLOGY AND [facility] MEDICINE [address] * Transferrin level (12/15/2018 5:26 AM LAYER OFF) Only the most recent of 2 results within the time period is included. Transferrin 175 (L) 200 - 360 mg/dL [facility] Specimen Plasma specimen Performing Organization Address [facility] Cent[facility]ode Phone Number [facility] [place] [address] PATH[address]Y [address] * Phosphorus level (12/15/2018 5:26 AM LAYER OFF) Only the most recent of 8 results within the time period is included. Phosphorus 3.8 2.4 - 4.5 mg/dL [facility] Specimen Plasma specimen Performing Organization Address [facility] Phone Number [facility] [place] [address] PATHOLOGY AND [facility] MEDICINE [address] * Parathyroid hormone (12/15/2018 5:26 AM LAYER OFF) PTH 255 (H) 15 - 65 pg/mL [facility] Specimen Blood Performing Organization Address [facility] Phone Number [facility] [place] [address] PATHOLOGY AND [facility] MEDICINE [address] * Magnesium level (12/15/2018 5:26 AM LAYER OFF) Only the most recent of 10 results within the time period is included. Magnesium 2.1 1.6 - 2.4 mg/dL [facility] Specimen Plasma specimen Performing Organization Address [facility] Phone Number [facility] [place] [address] PATHOLOGY AND [facility] MEDICINE [address] * Ferritin level (12/15/2018 5:26 AM LAYER OFF) Only the most recent of 3 results within the time period is included. Ferritin level 1,238 (H) 13 - 150 ng/mL [facility] Specimen Plasma specimen Performing Organization Address City/[facility]/Zipcode Phone Number [facility] [place] [place] [address] PATHOLOGY AND GENOMIC MEDICINE [address] * Blood culture, aerobic & anaerobic (12/14/2018 5:10 PM LAYER OFF) Only the most recent of 3 results within the time period is included. Blood culture isolate No growth after 5 days of [facility] incubation. HOSPITAL Comment: Specimen Information Specimen Source: Blood Specimen Site: Antecubital, left Specimen Blood - Antecubital, left Performing Organization Address [facility] Phone Number [facility] [place] [address] PATHOLOGY AND GENOMIC MEDICINE [address] * Lactic acid level, SEPSIS - Now and repeat 2x every 3 hours (12/14/2018 12:47 PM LAYER OFF) Only the most recent of 4 results within the time period is included. Lactic acid 1.1 0.5 - 2.2 mmol/L [facility] Specimen Blood Performing Organization Address City/[facility] Phone Number [facility] [place] [address] PATHOLOGY AND GENOMIC MEDICINE [address] * ECG ED Preliminary Interpretation - Not an Order (12/14/2018 10:47 AM LAYER OFF) Only the most recent of 2 results within the time period is included. Narrative Performed At Kami Ojeda MD 12/17/20182:38 PM ECG ED Preliminary Interpretation - Not an Order Performed by: Kami Ojeda MD Authorized by: Kami Ojeda MD ECG reviewed by ED Physician in the absence of a career and guidance counselor: yes Interpretation: Interpretation: abnormal Rate: ECG rate:92 ECG rate assessment: normal Rhythm: Rhythm: sinus rhythm Conduction: Conduction: abnormal Abnormal conduction: complete RBBB * Partial thromboplastin time, activated (12/14/2018 10:37 AM LAYER OFF) Only the most recent of 4 results within the time period is included. PTT 30.2 23.0 - 36.0 sec [facility] Comment: HOSPITAL PTT therapeutic range for unfractionated heparin is 61.0-112.0 seconds which corresponds to Anti-Xa 0.3-0.7 U/ml. Specimen Blood Performing Organization Address City/[facility] Phone Number [facility] [place] [address] PATHOLOGY AND GENOMIC MEDICINE [address] * Prothrombin time with INR (12/14/2018 10:37 AM LAYER OFF) Only the most recent of 4 results within the time period is included. Prothrombin time 13.6 11.5 - 14.5 sec [facility] INR 1.1 [facility] Comment: HOSPITAL The International Normalized Ratio (INR) is a therapeutic monitoring tool for patients who are stable on oral anticoagulant therapy. An INR of 2.0-3.0 is suggested for deep vein thrombosis/pulmonary embolism. Specimen Blood Performing Organization Address City/[facility] Phone Number [facility] [place] [address] PATHOLOGY AND GENOMIC MEDICINE [address] * B natriuretic peptide (12/14/2018 10:37 AM LAYER OFF) Only the most recent of 3 results within the time period is included. BNP 62 0 - 100 pg/mL [facility] Specimen Blood Performing Organization Address [facility] Phone Number [facility] [place] [address] PATHOLOGY AND GENOMIC MEDICINE [address] * CBC hemogram (12/07/2018 2:30 PM LAYER OFF) WBC 6.06 4.50 - 11.00 k/uL [facility] RBC 3.10 (L) 4.20 - 5.50 m/uL [facility] HGB 9.7 (L) 12.0 - 16.0 g/dL [facility] HCT 31.6 (L) 37.0 - 47.0 % [facility] MCV 101.9 (H) 82.0 - 100.0 fL [facility] MCH 31.3 27.0 - 34.0 pg [facility] MCHC 30.7 (L) 31.0 - 37.0 g/dL [facility] RDW - SD 49.1 37.0 - 55.0 fL [facility] MPV 11.1 8.8 - 13.2 fL [facility] Platelet count 210 150 - 400 k/uL [facility] Nucleated RBC 0.00 /100 WBC [facility] Performing Organization Address City/State/Zipcode Phone Number [facility] DEPARTMENT OF [address] [place] [address] PATHOLOGY AND GENOMIC MEDICINE [facility] [address] [place] [address] * CT Upper Extremity W Contrast Rt (12/07/2018 10:35 AM LAYER OFF) Narrative Performed At EXAMINATION:CT UPPER EXTREMITY W CONTRAST RIGHT [facility] INDICATION:Arm swelling. Concern for abscess or loculation. COMPARISON: None available TECHNIQUE: Helical axial CT images of the right upper extremity extending from the shoulder to the fingers were acquired following the administration of intravenous contrast. Sagittal and coronal planar reformats reviewed. Automated exposure control and/or iterative reconstruction was used to reduce patient dose. FINDINGS: 1.The patient was unable to assume the appropriate positioning for complete evaluation of the arm. The patient was moved to a different scanner with a larger bore but the entirety of the arm could not be imaged due to inability to properly position the patient. 2.Evaluation of the right arm demonstrates no evidence of an intramuscular or subcutaneous collection. There is subcutaneous edema involving the distal arm just proximal to the elbow with additional thickening of the skin and subcutaneous edema of the forearm suspicious for cellulitis. 3.As detailed above, the lateral aspect of the soft tissues of the arm and forearm are not included within the [id number]. 4.Assessment of the arm and forearm demonstrates evidence of an arteriovenous fistula. There are no definite findings to suggest occlusion of the fistula. 5.Other findings: No definite abnormality is seen in the right axilla. Imaged portion of the right body wall is grossly unremarkable. There are a few nonspecific right inguinal lymph nodes. No suspicious acute bony abnormality is seen. Mild to moderate osteoarthrosis of the right glenohumeral joint. IMPRESSION: Please note that the patient could not be appropriately positioned for the examination and therefore the entirety of the extremity could not fit into the CT gantry despite attempted scanning on multiple scanners. The lateral soft tissues of the arm and forearm could not be appropriately imaged. 1.Within the limitations of the study, no evidence of an organized collection in the arm or forearm. 2.Subcutaneous edema involving the arm and forearm, nonspecific and may be secondary to underlying cellulitis or lymphedema. 3.Additional findings and details as above. Procedure Note [facility], Radiology Results Incoming - 12/07/2018 10:55 AM LAYER OFF EXAMINATION: CT UPPER EXTREMITY W CONTRAST RIGHT INDICATION: Arm swelling. Concern for abscess or loculation. COMPARISON: None available TECHNIQUE: Helical axial CT images of the right upper extremity extending from the shoulder to the fingers were acquired following the administration of intravenous contrast. Sagittal and coronal planar reformats reviewed. Automated exposure control and/or iterative reconstruction was used to reduce patient dose. FINDINGS: 1. The patient was unable to assume the appropriate positioning for complete evaluation of the arm. The patient was moved to a different scanner with a larger bore but the entirety of the arm could not be imaged due to inability to properly position the patient. 2. Evaluation of the right arm demonstrates no evidence of an intramuscular or subcutaneous collection. There is subcutaneous edema involving the distal arm just proximal to the elbow with additional thickening of the skin and subcutaneous edema of the forearm suspicious for cellulitis. 3. As detailed above, the lateral aspect of the soft tissues of the arm and forearm are not included within the [id number]-taif. 4. Assessment of the arm and forearm demonstrates evidence of an arteriovenous fistula. There are no definite findings to suggest occlusion of the fistula. 5. Other findings: No definite abnormality is seen in the right axilla. Imaged portion of the right body wall is grossly unremarkable. There are a few nonspecific right inguinal lymph nodes. No suspicious acute bony abnormality is seen. Mild to moderate osteoarthrosis of the right glenohumeral joint. IMPRESSION: Please note that the patient could not be appropriately positioned for the examination and therefore the entirety of the extremity could not fit into the CT gantry despite attempted scanning on multiple scanners. The lateral soft tissues of the arm and forearm could not be appropriately imaged. 1. Within the limitations of the study, no evidence of an organized collection in the arm or forearm. 2. Subcutaneous edema involving the arm and forearm, nonspecific and may be secondary to underlying cellulitis or lymphedema. 3. Additional findings and details as above. Performing Organization Address City/State/Zipcode Phone Number [facility] [address] [place] [address] * Us duplex venous upper extremity (12/06/2018 11:30 AM LAYER OFF) Narrative Performed At [facility] Vascular Ultrasound Laboratory Upper Extremity Venous Report [id number] [facility], [facility] [address], [place] [id number] Pat.Name:CHRISTY FRANK.ID:[id number] .Date: 12/06/2018 Refer.MD:BRITNEY SAENZ MD Exam Time: 10:52:00 AM Study Type:UE Venous Height:66inDOBAge:[birth year],63Y Sex: FEMALESonogrphr: Sarkis Ty RDMS, RVT Pat. Stat.:Inpatient Room:[address] TapeVol: , CPT - 4: 62880 Echo Event ID:[id number] Order ID:[id number] Reason for Study:Arm swelling or pain. DVT suspected. ESRD with dialysis AVF on right arm. History / Clinical:DM, Obesity, HTN, CHF Procedures:B-flow imaging, Colorflow, Grayscale/2D, Pulsed wave Doppler Race:C SUMMARY: DUPLEX SCAN OBSERVATIONS Right Left IJNormal SubclavianNormal Normal AxillaryNormal BrachialNormal BasilicNormal CephalicNormal RIGHT:There is normal compressibility and no evidence of echogenic material noted within the lumen of the visualized veins. Colorflow and Doppler signals are normal. Doppler signals demonstrate pulsatility within the veins. Poor visualization of the mid brachial vein. No definitive evidence of an abscess within the upper extremity at focal areas of pain. Focally elevated velocities noted at the AVF. PRELIMINARY FINDINGS 1.No evidence of venous thrombosis noted in the visualized veins; unable to compress due to patient body habitus; however, colorflow fills the entire veins. 2.Pulsatility is noted throughout all veins. 3.Incidental finding of focally elevated velocities suggestive of > 50% stenosis noted at the arteriovenous fistula; 4.5 ratio. (116 into 527 cm/s) 4.Volume flows range from 668 to 742 cc/min in the distal brachial artery; 423 to 455 cc/min in the mid radial artery. 5. No definitive evidence of an abscess within the upper extremity at focal areas of pain. PHYSICIAN INTERPRETATION Venous examination of the right upper extremity and neck demonstrated no evidence of venous thrombosis. Incidental finding of focally elevated velocities suggestive of > 50% stenosis noted at the arteriovenous fistula; 4.5 ratio. (116 into 527 cm/s) Adequate flow volumes. Signed 12/06/2018 06:18 PM Rio Chapin MD, RPVI Procedure Note Interface, Radiology Results In - 12/06/2018 6:18 PM LAYER OFF Vascular Ultrasound Laboratory Upper Extremity Venous Report [id number] [place] [address] Pat.Name: CHRISTY FRANK Pat.ID: [id number] St.Date: 12/06/2018 Refer.MD: BRITNEY SAENZ MD Exam Time: 10:52:00 AM Study Type:UE Venous Height: 66in Age: 9 1955,63Y Sex: FEMALE Sonogrphr: Sarkis Ty RDMS, RVT Pat. Stat.:Inpatient Room: [address] Vol: , [facility] - 4: [id number] Echo Event ID:[id number] Order ID: [id number] Reason for Study:Arm swelling or pain. DVT suspected. ESRD with dialysis AVF on right arm. History / Clinical:DM, Obesity, HTN, CHF Procedures:B-flow imaging, Colorflow, Grayscale/2D, Pulsed wave Doppler Race: C SUMMARY: DUPLEX SCAN OBSERVATIONS Right Left IJ Normal Subclavian Normal Normal Axillary Normal Brachial Normal Basilic Normal Cephalic Normal RIGHT: There is normal compressibility and no evidence of echogenic material noted within the lumen of the visualized veins. Colorflow and Doppler signals are normal. Doppler signals demonstrate pulsatility within the veins. Poor visualization of the mid brachial vein. No definitive evidence of an abscess within the upper extremity at focal areas of pain. Focally elevated velocities noted at the AVF. PRELIMINARY FINDINGS 1. No evidence of venous thrombosis noted in the visualized veins; unable to compress due to patient body habitus; however, colorflow fills the entire veins. 2. Pulsatility is noted throughout all veins. 3. Incidental finding of focally elevated velocities suggestive of > 50% stenosis noted at the arteriovenous fistula; 4.5 ratio. (116 into 527 cm/s) 4. Volume flows range from 668 to 742 cc/min in the distal brachial artery; 423 to 455 cc/min in the mid radial artery. 5. No definitive evidence of an abscess within the upper extremity at focal areas of pain. PHYSICIAN INTERPRETATION Venous examination of the right upper extremity and neck demonstrated no evidence of venous thrombosis. Incidental finding of focally elevated velocities suggestive of > 50% stenosis noted at the arteriovenous fistula; 4.5 ratio. (116 into 527 cm/s) Adequate flow volumes. Signed 12/06/2018 06:18 PM Rio Chapin MD, RPVI Performing Organization Address [facility] Cent[facility] Phone Number [facility] [address] [place] [address] * Gram stain (12/06/2018 7:44 AM LAYER OFF) Only the most recent of 2 results within the time period is included. Gram stain result No WBC's [facility] Moderate Gram positive rods HOSPITAL Comment: Specimen Information Specimen Source: Urine Specimen Site: Clean catch Specimen Urine Performing Organization Address City/[facility]/Zipcode Phone Number [facility] DEPARTMENT OF [address] [place] [address] PATHOLOGY AND GENOMIC MEDICINE [facility] [address] [place] [address] HOSPITAL * Urine culture (12/06/2018 7:44 AM LAYER OFF) Only the most recent of 2 results within the time period is included. Urine culture isolate growth after 24 hours [facility] Comment: HOSPITAL Specimen Information Specimen Source: Urine Specimen Site: Clean catch Specimen Urine Performing Organization Address [facility]/Zipcode Phone Number [facility] DEPARTMENT OF [address] [place] [address] PATHOLOGY AND GENOMIC MEDICINE [address] * Urinalysis screen and microscopy, with reflex to culture (12/06/2018 5:18 AM LAYER OFF) Only the most recent of 2 results within the time period is included. Specimen site Clean catch [facility] Color, UA Yellow [facility] Appearance, UA Hazy [facility] Specific gravity, UA 1.017 1.001 - 1.035 [facility] pH, UA 5.0 5.0 - 8.5 [facility] Protein, UA 2+ (A) Negative [facility] Glucose, UA Negative Negative [facility] Ketones, UA Negative Negative [facility] Bilirubin, UA Negative Negative [facility] Blood, UA Negative Negative [facility] Nitrite, UA Negative Negative [facility] Urobilinogen, UA <2.0 <2.0 [facility] Leukocyte esterase, UA Trace (A) Negative [facility] Epithelial cells, UA >20 /HPF [facility] WBC, UA 7 (H) 0 - 4 /HPF [facility] RBC, UA 1 0 - 5 /HPF [facility] Bacteria, UA Many (A) None seen [facility] Yeast, UA Few (A) [facility] Yeast with pseudohyphae, None seen [facility] Hyaline casts, UA >20 (A) /LPF [facility] Specimen Urine Performing Organization Address City/[facility] Cent[facility]ode Phone [place] [address] PATHOLOGY AND GENOMIC MEDICINE [address] * Venous blood gas (12/05/2018 2:20 AM LAYER OFF) Only the most recent of 2 results within the time period is included. pH, venous 7.30 (L) 7.32 - 7.42 [facility] pCO2, venous 56 (H) 45 - 51 mmHg [facility] pO2, venous 39 25 - 40 mmHg [facility] Base excess, venous 1 -2 - 2 meq/L [facility] O2 saturation, venous 68 40 - 70 % [facility] Bicarbonate, venous 27.1 21.0 - 28.0 mmol/L [facility] Specimen Blood Performing Organization Address City/[facility]ode Phone Number [facility] DEPARTMENT OF [address] [place] [address] PATHOLOGY AND GENOMIC MEDICINE [address] * Beta hydroxybutyrate (12/05/2018 1:33 AM LAYER OFF) Beta hydroxybutyrate 0.96 (H) 0.02 - 0.27 mmol/L [facility] Specimen Serum Performing Organization Address City/State/Zipcode Phone Number [facility] DEPARTMENT OF [address] [place] [address] PATHOLOGY AND GENOMIC MEDICINE [address] * IR Tunneled Dialysis Catheter Placement (12/03/2018 5:29 PM LAYER OFF) Only the most recent of 2 results within the time period is included. Narrative Performed At Examination:IR TUNNELED DIALYSIS CATHETER PLACEMENT [facility] Clinical history:"Infilterated AVF. Needs HD rest. Need for access." Comparison:09/02/2018 Anesthesia:Lidocaine solution was injected into the involved tissues. Conscious sedation:After the risks and benefits of conscious sedation were discussed, midazolam and fentanyl were administered intravenously.Throughout the conscious sedation duration, the patient was continuously monitored by a registered nurse. The physician intraservice [id number]-[id number] time with the patient was 12 minutes. Reference air kerma:0.1 mGy. Technique:The patient was prepared using sterile technique after signed, informed consent was obtained. Maximal sterile barrier technique was implemented. The right internal jugular vein was imaged sonographically and was found to be occluded. The right external jugular vein was imaged sonographically and was found to be occluded. A small, unnamed collateral vein within the right neck was imaged sonographically and was found to be patent and appropriate for percutaneous access.Under real-time sonographic guidance, the vessel was accessed using a 21-gauge needle with real-time visualization of needle entry into the vessel.A sonographic image of the accessed vessel was obtained as permanent documentation.Seldinger technique was used to advance a standard guidewire into the inferior vena cava.A small incision was made caudal and lateral to the venotomy establishing the catheter exit site.The distal end of the cuffed catheter was tunneled from the catheter exit site to the venotomy.A peel-away sheath was placed over the wire after the percutaneous tissues were dilated.The distal end of the catheter was fed through the sheath and positioned using real-time fluoroscopic guidance with the catheter tip within the right atrium.The catheter was tested and found to function appropriately.The external portion of the catheter was sutured to the adjacent skin.The small incision overlying the venotomy was closed with absorbable suture. Estimated blood loss:Less than 2 cc. Complications:None. Specimens removed:Not applicable. Assistants:None. IMPRESSION: A 23 cm in cuff-to-tip length [place] tunneled hemodialysis catheter was placed via a small, tortuous, unnamed collateral vein within the right neck using image guidance and without incident as described above.The catheter is ready for routine use. 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 Thank you for allowing us to participate in the care of your patient. [facility]-[id number] Procedure Note Hm Interface, Radiology Results Incoming - 12/03/2018 5:59 PM LAYER OFF Examination: IR TUNNELED DIALYSIS CATHETER PLACEMENT Clinical history: "Infilterated AVF. Needs HD rest. Need for access." Comparison: 09/02/2018 Anesthesia: Lidocaine solution was injected into the involved tissues. Conscious sedation: After the risks and benefits of conscious sedation were discussed, midazolam and fentanyl were administered intravenously. Throughout the conscious sedation duration, the patient was continuously monitored by a registered nurse. The physician intraservice muua-sj-[id number] time with the patient was 12 minutes. Reference air kerma: 0.1 mGy. Technique: The patient was prepared using sterile technique after signed, informed consent was obtained. Maximal sterile barrier technique was implemented. The right internal jugular vein was imaged sonographically and was found to be occluded. The right external jugular vein was imaged sonographically and was found to be occluded. A small, unnamed collateral vein within the right neck was imaged sonographically and was found to be patent and appropriate for percutaneous access. Under real-time sonographic guidance, the vessel was accessed using a 21-gauge needle with real-time visualization of needle entry into the vessel. A sonographic image of the accessed vessel was obtained as permanent documentation. Seldinger technique was used to advance a standard guidewire into the inferior vena cava. A small incision was made caudal and lateral to the venotomy establishing the catheter exit site. The distal end of the cuffed catheter was tunneled from the catheter exit site to the venotomy. A peel-away sheath was placed over the wire after the percutaneous tissues were dilated. The distal end of the catheter was fed through the sheath and positioned using real-time fluoroscopic guidance with the catheter tip within the right atrium. The catheter was tested and found to function appropriately. The external portion of the catheter was sutured to the adjacent skin. The small incision overlying the venotomy was closed with absorbable suture. Estimated blood loss: Less than 2 cc. Complications: None. Specimens removed: Not applicable. Assistants: None. IMPRESSION: A 23 cm in cuff-to-tip length [employer] [place] tunneled hemodialysis catheter was placed via a small, tortuous, unnamed collateral vein within the right neck using image guidance and without incident as described above. The catheter is ready for routine use. 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 Thank you for allowing us to participate in the care of your patient. [facility]-[id number] Performing Organization Address City/State/Zipcode Phone Number [facility] [address] [place] [address] * Hemoglobin A1c (12/03/2018 5:30 AM LAYER OFF) Only the most recent of 4 results within the time period is included. Hemoglobin A1C 10.6 (H) 4.0 - 5.6 % [facility] Comment: HOSPITAL HbA1c cutoffs for diagnosing diabetes: 4.0% - 5.6%=normal 5.7% - 6.4%=increased risk for diabetes (prediabetes) >=6.5%=diabetes Goals for glycemic control (ADA 2016) < 7.0%Target for non adults with diabetes. More or less stringent targets may be appropriate for individual patients. <7.5% Target for Children and adolescents with type 1 diabetes. Specimen Blood Performing Organization Address City/[facility]/Zipcode Phone Number [facility] DEPARTMENT OF [address] [place] [address] PATHOLOGY AND GENOMIC MEDICINE [address] * Manual differential (12/02/2018 8:38 PM LAYER OFF) Manual differential PERFORMED [facility] Neutrophils 85.0 (H) 39.0 - 69.0 % [facility] Lymphocytes 7.0 (L) 25.0 - 45.0 % [facility] Monocytes 6.0 0.0 - 10.0 % [facility] Eosinophils 1.0 0.0 - 5.0 % [facility] Basophils 1.0 0.0 - 1.0 % [facility] Metamyelocytes 0 % [facility] Promyelocytes 0 % [facility] Platelet slide review Mason adequate [facility] Anisocytosis Moderate [facility] Polychromasia Moderate [facility] Ovalocytes Moderate [facility] Performing Organization Address City/State/Zipcode Phone Number [facility] DEPARTMENT OF [address] [place] [address] PATHOLOGY AND GENOMIC MEDICINE [id number] [place] [address] * US Thyroid (11/19/2018 1:47 PM LAYER OFF) Narrative Performed At EXAMINATION:US THYROID [facility] CLINICAL HISTORY:E04.1 Nontoxic single thyroid nodule, hx of thyroid nodules COMPARISON:None. TECHNIQUE: Transverse and longitudinal sonographic images of the thyroid gland were obtained. Grayscale and color Doppler images were also obtained. IMPRESSION: A 1.7 cm hypoechoic nodule which is solid and wide with punctate calcification is present in the left lobe of the thyroid gland. Ultrasound guided biopsy is recommended Multiple other subcentimeter nondominant nodules bilaterally FINDINGS: Thyroid is not enlarged. Right lobe measures 4.9 x 2.1 x 1.8 cm, left lobe 3.8 x 2.6 x 1.7 cm, and the isthmus 0.5 cm in thickness. Thyroid parenchyma is heterogeneous in echogenicity, and heterogeneous in echotexture. A 1.7 cm hypoechoic nodule with punctate calcifications and is taller than wide present in the left lobe of the thyroid gland. Ultrasound guided biopsy is recommended. Multiple other nondominant subcentimeter nodules are present bilaterally compatible with a multinodular goiter. ACR TI-RADS GUIDELINES 2017 *0 points: TR1. Benign. No FNA *2 points:TR2. Not suspicious. No FNA *3 points: TR3. Mildly suspicious. FNA if > or=2.5 cm. Follow if > or=1.5 cm *4-6 points: TR4. Moderately suspicious. FNA if > or=1.5 cm. Follow if > or=1 cm *7 or more points: TR5. Highly suspicious. FNA if > or=1 cm. Follow if > or=0.5 cm Follow-up of TR3-TR5 nodules that do not meet biopsy criteria: *TR3: 1,3 and 5 years *TR4: 1,2,3 and 5 years *TR5: 1,2,3,4 and 5 years Any nodule that is stable for 5 years regardless of TI-RADS level is considered benign Any nodule whose TI-RADS level increases should have 1 year followup regardless of initial level DESCRIPTION of CRITERIA: COMPOSITION (choose 1): *Spongiform: Composed predominantly (greater than 50%) of small cystic spaces. Do not add further points for other categories *Mixed cystic and solid: Assign points for predominant solid component *Assign 2 points if composition cannot be determined because of calcification ECHOGENICITY (choose 1): *Anechoic: Applies to cystic or almost completely cystic nodules *Hyperechoic/isoechoic/hypoechoic: Compared to adjacent parenchyma *Very hypoechoic: More hypoechoic than strap muscles *Assign 1 point if echogenicity cannot be determined SHAPE (choose 1): *Uzcque-gesk-axav: Should be assessed on a transverse image with measurements parallel to sound beam for height and perpendicular to sound beam for width. This can usually be assessed by visual inspection. MARGIN (choose 1): *Lobulated: Protrusions into adjacent tissue. *Irregular: Jagged, spiculated, or sharp angles *Extrathyroidal extension: Obvious invasion equals malignancy *Assign 0 points if margin cannot be determined ECHOGENIC FOCI (choose 1 or more): *Large comet-tail artifacts: V-shaped, > 1 mm, or in cystic components *Macrocalcifications: Cause acoustic shadowing *Peripheral: Complete or incomplete along margin *Punctate echogenic foci: May have small, comet-tail artifact If there are multiple nodules, only the highest (up to 4) scoring nodules should be reported and followed For nodules that meet TI-RADS FNA criteria, only the TWO highest scoring nodules should be sampled Significant enlargement is defined as a 20% increase in at least 2 nodular dimensions and a minimal increase of 2 mm, or a 50% or greater increase in volume Thank you for allowing us to participate in the care of your patient. [id number] Procedure Note Hm Interface, Radiology Results Incoming - 11/19/2018 1:58 PM LAYER OFF EXAMINATION: US THYROID CLINICAL HISTORY: E04.1 Nontoxic single thyroid nodule, hx of thyroid nodules COMPARISON: None. TECHNIQUE: Transverse and longitudinal sonographic images of the thyroid gland were obtained. Grayscale and color Doppler images were also obtained. IMPRESSION: A 1.7 cm hypoechoic nodule which is solid and wide with punctate calcification is present in the left lobe of the thyroid gland. Ultrasound guided biopsy is recommended Multiple other subcentimeter nondominant nodules bilaterally FINDINGS: Thyroid is not enlarged. Right lobe measures 4.9 x 2.1 x 1.8 cm, left lobe 3.8 x 2.6 x 1.7 cm, and the isthmus 0.5 cm in thickness. Thyroid parenchyma is heterogeneous in echogenicity, and heterogeneous in echotexture. A 1.7 cm hypoechoic nodule with punctate calcifications and is taller than wide present in the left lobe of the thyroid gland. Ultrasound guided biopsy is recommended. Multiple other nondominant subcentimeter nodules are present bilaterally compatible with a multinodular goiter. ACR TI-RADS GUIDELINES 2017 * 0 points: TR1. Benign. No FNA * 2 points: TR2. Not suspicious. No FNA * 3 points: TR3. Mildly suspicious. FNA if > or=2.5 cm. Follow if > or =1.5 cm * 4-6 points: TR4. Moderately suspicious. FNA if > or=1.5 cm. Follow if > or=1 cm * 7 or more points: TR5. Highly suspicious. FNA if > or=1 cm. Follow if > or=0.5 cm Follow-up of TR3-TR5 nodules that do not meet biopsy criteria: * TR3: 1,3 and 5 years * TR4: 1,2,3 and 5 years * TR5: 1,2,3,4 and 5 years Any nodule that is stable for 5 years regardless of TI-RADS level is considered benign Any nodule whose TI-RADS level increases should have 1 year followup regardless of initial level DESCRIPTION of CRITERIA: COMPOSITION (choose 1): * Spongiform: Composed predominantly (greater than 50%) of small cystic spaces. Do not add further points for other categories * Mixed cystic and solid: Assign points for predominant solid component * Assign 2 points if composition cannot be determined because of calcification ECHOGENICITY (choose 1): * Anechoic: Applies to cystic or almost completely cystic nodules * Hyperechoic/isoechoic/hypoechoic: Compared to adjacent parenchyma * Very hypoechoic: More hypoechoic than strap muscles * Assign 1 point if echogenicity cannot be determined SHAPE (choose 1): * Rwxphn-iigc-ldzs: Should be assessed on a transverse image with measurements parallel to sound beam for height and perpendicular to sound beam for width. This can usually be assessed by visual inspection. MARGIN (choose 1): * Lobulated: Protrusions into adjacent tissue. * Irregular: Jagged, spiculated, or sharp angles * Extrathyroidal extension: Obvious invasion equals malignancy * Assign 0 points if margin cannot be determined ECHOGENIC FOCI (choose 1 or more): * Large comet-tail artifacts: V-shaped, > 1 mm, or in cystic components * Macrocalcifications: Cause acoustic shadowing * Peripheral: Complete or incomplete along margin * Punctate echogenic foci: May have small, comet-tail artifact If there are multiple nodules, only the highest (up to 4) scoring nodules should be reported and followed For nodules that meet TI-RADS FNA criteria, only the TWO highest scoring nodules should be sampled Significant enlargement is defined as a 20% increase in at least 2 nodular dimensions and a minimal increase of 2 mm, or a 50% or greater increase in volume Thank you for allowing us to participate in the care of your patient. [id number] Performing Organization Address [facility] Phone Number [facility] [address] [place] [address] * Thyroperoxidase antibody (10/17/2018 10:59 AM LAYER OFF) Thyroperoxidase Ab 12 0 - 34 IU/mL [facility] Specimen Blood Narrative Performed At Performed at: [id number] [employer]er: Barry Brannon MD, Phone:[phone] Performing Organization Address [facility] Phone Number [facility] * Thyroid stimulating hormone (10/17/2018 10:59 AM LAYER OFF) Only the most recent of 4 results within the time period is included. TSH 4.440 0.450 - 4.500 uIU/mL [facility] Specimen Blood Narrative Performed At Performed at: [facility] [address] [place], [place] [id number] [employer]: Barry Brannon MD, Phone:[phone] Performing Organization Address [facility] Phone Number [facility] * T4, free (10/17/2018 10:59 AM LAYER OFF) Only the most recent of 3 results within the time period is included. T4, free 1.30 0.82 - 1.77 ng/dL [facility] Specimen Blood Narrative Performed At Performed at: [facility] [address] [place], [place] [id number] [employer]: Barry Brannon MD, Phone:[phone] Performing Organization Address [facility] Phone Number [facility] * [place] lambda free light chain with ratio (08/31/2018 9:43 AM CDT) [place] light [employer] 161.65 (H) 3.30 - 19.40 mg/L [facility] DEPARTMENT OF PATHOLOGY AND GENOMIC MEDICINE Lambda light chain 73.31 (H) 5.70 - 26.30 mg/L [facility] DEPARTMENT OF PATHOLOGY AND GENOMIC MEDICINE [place] lambda ratio 2.21 (H) 0.26 - 1.65 [facility] DEPARTMENT OF PATHOLOGY AND GENOMIC MEDICINE Specimen Plasma specimen Performing Organization Address [facility] Cent[facility]ode Phone Number [address] [address] PATHOLOGY AND GENOMIC MEDICINE * HIV Ag/Ab combination (08/31/2018 4:00 AM CDT) HIV Ag/Ab combination Non-reactive Non-reactive [facility] DEPARTMENT OF PATHOLOGY AND GENOMIC MEDICINE Specimen Blood Performing Organization Address [facility] Centercode Phone Number [facility] OF [address] [place] [address] PATHOLOGY AND GENOMIC MEDICINE * Serum electrophoresis (08/31/2018 4:00 AM CDT) Protein 7.5 6.3 - 8.3 g/dL [facility] DEPARTMENT OF Comment: PATHOLOGY AND GENOMIC MEDICINE 4.6-7.0 g/dL 1 week 4.4-7.6 g/dL 7 months-1year 5.1-7.3 g/dL 1-2 years5.6-7 .5 g/dL >3 years6.0-8 .0 g/dL 18-150 6.3-8.3 g/dL SPE albumin 3.87 (L) 4.00 - 5.30 g/dL [facility] DEPARTMENT OF PATHOLOGY AND GENOMIC MEDICINE SPE alpha 1 0.19 0.10 - 0.25 g/dL [facility] DEPARTMENT OF PATHOLOGY AND GENOMIC MEDICINE SPE alpha 2 0.91 (H) 0.58 - 0.84 g/dL [facility] DEPARTMENT OF PATHOLOGY AND GENOMIC MEDICINE SPE beta 0.89 0.50 - 1.10 g/dL [facility] DEPARTMENT OF PATHOLOGY AND GENOMIC MEDICINE SPE gamma 1.64 (H) 0.60 - 1.30 g/dL [facility] DEPARTMENT OF PATHOLOGY AND GENOMIC MEDICINE SPE extended See Comment [facility] DEPARTMENT OF interpretation Comment: PATHOLOGY AND Albumin is decreased while GENOMIC MEDICINE there is diffuse (polyclonal) increase in gamma globulins indicating a chronic disease pattern. Increased alpha-2 globulins may be due to increased haptoglobin in an acute phase response or increased alpha-2 macroglobulin in diabetes mellitus. Beta-gamma bridging suggests an increase in IgA and a hepatic etiology. 646 SPE interpretation See CommentComment: [facility] DEPARTMENT OF Starr SALDAÑA, MPH; Delphine Spencer PhD; PATHOLOGY AND Zoya Espino MD GENOMIC MEDICINE Specimen Serum Performing Organization Address City/[facility]/Zipcode Phone Number [facility] [place] [place] [address] PATHOLOGY AND GENOMIC MEDICINE * Folate level (08/31/2018 4:00 AM CDT) Folate 7.4 4.8 - 24.2 ng/mL [facility] DEPARTMENT OF PATHOLOGY AND GENOMIC MEDICINE Specimen Serum Performing Organization Address [facility] Centercode Phone Number [place] [address] PATHOLOGY AND GENOMIC MEDICINE * Vitamin B12 level (08/31/2018 4:00 AM CDT) Vitamin B12 527 211 - 946 pg/mL [facility] DEPARTMENT OF Comment: PATHOLOGY AND Significant overlap exists GENOMIC MEDICINE between normal and deficiency states. However, most patients with deficiencies will have Serum B12 <200 pg/mL. Specimen Serum Performing Organization Address [facility] Centercode Phone [place] [address] PATHOLOGY AND GENOMIC MEDICINE * Echocardiogram complete w contrast and 3D if needed (08/30/2018 11:15 AM CDT) Narrative Performed At [facility] Echocardiography Report [address] [place] [address] Pat.Name:CHRISTY FRANK [facility].ID:[id number] .Date: 08/30/2018Refer.MD:BINDU FIORE MD Exam Time: 10:23:00 AM Study Type:Routine Echo Height:66inWeight:269lb BSA: 2.27 m2 DOBAge:1955,63Y Sex: FEMALEBP:133/63 HR:83 bpmSonogrphr: DANIELLA Patrick Pat. Stat.:Inpatient Room:[facility] Study Status:Final Echo Event ID:[id number] Order ID:[id number] Reason for Study:SOB, suspected cardiac etiology, Fluid overload History / Clinical:Chest Pain, Diabetes, Hypertension Procedures:2D Echo, Colorflow Doppler, Intravenous Definity Contrast Race:C SUMMARY: LV EF is hyperdynamic. Diastolic dysfunction Grade II (Moderate): Impaired relaxation with elevated LV filling pressures. Estimated PA systolic pressure is 28-33 mmHg, assuming a mean RAP of 5-10 mmHg (IVC is not visualized). FINDINGS: LV: LV size is normal. Concentric left ventricular remodeling. LVEF is hyperdynamic. Overall wall motion is hyperdynamic. EstimatedEF is >70%. RV: RV size is difficult to assess. RV systolic function is probablynormal on limited views. LA: LA volume is mildly enlarged. RA: RA volume is difficult to assess. AO: Aortic root diameter is normal. JASWINDER: No pericardial effusion. There is an anterior space consistentwith a prominent epicardial fat pad. IAS:Interatrial septum is thickened consistent with lipomatous hypertrophy. AV: Focal calcification of AV leaflets. MV: Thickened and/or calcified mitral annulus. PV: Pulmonic valve not well seen. TV: No structural TV abnormalities noted. A trace of tricuspid regurgitation Obando: Diastolic dysfunction Grade II (Moderate): Impaired relaxationwith elevated LV filling pressures. Other:Estimated PA systolic pressure is 28-33 mmHg, assuming a meanRAP of 5-10 mmHg. MEASUREMENTS: 2D Parasternal Long [place] LVOT 1.7 cmLA Ds3.2 cm LVIDd3.7 cmIndex1.7 cm/m Ao An2.3 cm LVIDs2 cmAo Rtd 3 cm Index1.3 cm/m LV%fs 46 % LV Vcly736 g(87-129) IVSd 1 cmLVM Index 49.3 g/m2 LVPWd0.9 cmRWT0.5 LA Sng Plane LA Area 24.7 cm2(8.8-23.4) LA Vol78.2 ml Index34.5 ml/m LA LngAx 6.4 cm Signed 08/30/2018 03:40 PM Davon Naqvi MD Procedure Note Interface, Radiology Results In - 08/30/2018 3:45 PM CDT Echocardiography Report [address] [place] [address] Pat.Name: CHRISTY FRANK Pat.ID: [id number] .Date: 08/30/2018 Refer.MD: BINDU FIORE MD Exam Time: 10:23:00 AM Study Type:Routine Echo Height: 66in Weight: 269lb BSA: 2.27 m2 Age: 9 1955,63Y Sex: FEMALE BP: 133/63 HR: 83 bpm Sonogrphr: DANIELLA Patrick Pat. Stat.:Inpatient Room: [facility] Study Status:Final Echo Event ID:[id number] Order ID: [id number] Reason for Study:SOB, suspected cardiac etiology, Fluid overload History / Clinical:Chest Pain, Diabetes, Hypertension Procedures:2D Echo, Colorflow Doppler, Intravenous Definity Contrast Race: C SUMMARY: LV EF is hyperdynamic. Diastolic dysfunction Grade II (Moderate): Impaired relaxation with elevated LV filling pressures. Estimated PA systolic pressure is 28-33 mmHg, assuming a mean RAP of 5-10 mmHg (IVC is not visualized). FINDINGS: LV: LV size is normal. Concentric left ventricular remodeling. LV EF is hyperdynamic. Overall wall motion is hyperdynamic. Estimated EF is >70%. RV: RV size is difficult to assess. RV systolic function is probably normal on limited views. LA: LA volume is mildly enlarged. RA: RA volume is difficult to assess. AO: Aortic root diameter is normal. JASWINDER: No pericardial effusion. There is an anterior space consistent with a prominent epicardial fat pad. IAS: Interatrial septum is thickened consistent with lipomatous hypertrophy. AV: Focal calcification of AV leaflets. MV: Thickened and/or calcified mitral annulus. PV: Pulmonic valve not well seen. TV: No structural TV abnormalities noted. A trace of tricuspid regurgitation Obando: Diastolic dysfunction Grade II (Moderate): Impaired relaxation with elevated LV filling pressures. Other: Estimated PA systolic pressure is 28-33 mmHg, assuming a mean RAP of 5-10 mmHg. MEASUREMENTS: 2D Parasternal Long [place] LVOT 1.7 cm LA Ds 3.2 cm LVIDd 3.7 cm Index 1.7 cm/m Ao An 2.3 cm LVIDs 2 cm Ao Rtd 3 cm Index 1.3 cm/m LV%fs 46 % LV Mass 112 g (87-129) IVSd 1 cm LVM Index 49.3 g/m2 LVPWd 0.9 cm RWT 0.5 LA Sng Plane LA Area 24.7 cm2 (8.8-23.4) LA Vol 78.2 ml Index 34.5 ml/m LA LngAx 6.4 cm Signed 08/30/2018 03:40 PM Davon Naqvi MD Performing Organization Address City/State/Zipcode Phone Number [facility] [address] [place] [address] * Lipid panel (08/29/2018 4:45 PM CDT) Cholesterol 173 <200 mg/dL [facility] DEPARTMENT OF PATHOLOGY AND GENOMIC MEDICINE Triglycerides 243 (H) <150 mg/dL [facility] DEPARTMENT OF PATHOLOGY AND GENOMIC MEDICINE HDL cholesterol 43 >40 mg/dL [facility] DEPARTMENT OF PATHOLOGY AND GENOMIC MEDICINE LDL cholesterol 99Comment: Result obtained by <100 mg/dL [facility] DEPARTMENT OF direct LDL measurement PATHOLOGY AND GENOMIC MEDICINE [facility] interpretation Comment: PATHOLOGY AND Total Cholesterol GENOMIC MEDICINE (mg/dL) <200 Desirable 200-239Borderline -high >=240High Triglycerides (mg/dL) <150 Normal 150-199Borderline -high 200-499High >=500Very high HDL Cholesterol (mg/dL) <40Low (male) <40Low (female) LDL Cholesterol (mg/dL) <100 Optimal 100-129Near or above optimal 130-159Borderline -high 160-189High >=190Very high Risk Catergories that modify LDL goals. Risk Catergories LDL goal (mg/dL) CHD and CHD risk equivalent<100 (10-year risk >20%) Multiple (2+) risk factors <130 (10-year risk=<20%) 0-1 risk factors <160 (<10-year risk) Defining levels of lipids in metabolic syndrome Triglycerides >=150 mg/dL HDL Cholesterol Men <40 mg/dL Women <40 mg/dL Non-HDL cholesterol is a second target for therapy in persons with high triglycerides (>=200 mg/dL) Specimen Plasma specimen Narrative Performed At [facility] results called to and read back by GALINA WALL/LATISHA(name/location) [facility] DEPARTMENT OF at118:14(date/time) by AB2. PATHOLOGY AND GENOMIC MEDICINE Performing Organization Address City/State/Zipcode Phone Number [facility] DEPARTMENT OF [address] [place] [address] PATHOLOGY AND GENOMIC MEDICINE * TDC Removal (05/19/2018 10:20 AM CDT) Narrative Performed At Eva Concepcion NP 05/19/2018 10:29 AM TDC Removal Date/Time: 05/19/2018 10:28 AM Performed by: EVA CONCEPCION Authorized by: EVA CONCEPCION TDC site anesthetized with local anesthetic. The cuff was dissected free and the catheter removed in its entirety. Pressure was held at the site to ensure hemostasis. Pressure dressing applied. Verbal and written instructions and ER warnings given. Procedure Comments: With the patient in supine position, the (right) side of the neck and the existing catheter were prepped and draped in a sterile fashion. 1% Lidocaine with Epiwas injected subcutaneously around the catheter tract. Blunt dissection of the tract was performed and the catheter was removed without complications. With the patient now sitting upright, pressure was held over the entry site in the (right) internal jugular vein and hemostasis was achieved. Dressings were placed over the skin wound on the subclavicular region. The patient tolerated the procedure well. Impression: Successful removal of (right) internal jugular vein tunneled catheter. R RCF good thrill and bruit, no steal sx, doing well and able to dialyze without any issues Consent: Consent obtained:Verbal Consent given by:Patient Risks discussed:Bleeding, infection, pain, poor cosmetic result and incomplete drainage Alternatives discussed:No treatment, referral and observation Post-procedure details: Patient tolerance of procedure:Tolerated well, no immediate complications * Echocardiogram complete w contrast and 3D if needed (04/14/2018 9:23 AM CDT) Narrative Performed At [facility] Echocardiography Report [address]Name:CHRISTY FRANK.ID:[id number] .Date: 04/14/2018 Refer.MD:KERRI BLEVINS MD Exam Time: 8:34:00 AMStudy Type:Routine Echo Height:66inWeight:267lb BSA: 2.26 m2 DOBAge:1955,62Y Sex: FEMALEBP:138/63 HR:79 bpmSonogrphr: DANIELLA Horner Pat. Stat.:Inpatient Room:[facility] Study Status:Final Echo Event ID:[id number] Order ID:[id number] Reason for Study:[facility] Valvular Regurgitation - Routine surveillance (<1 y) of moderate or severe valvular regurgitation without a change in clinical status or cardiac exam; evaluate pericardial effusion History / Clinical:Chest Pain, Diabetes, Hypertension Procedures:2D Echo, Colorflow Doppler, Intravenous Definity Contrast Race:C SUMMARY: LV EF is normal. RV systolic function is normal. FINDINGS: LV: LV size is normal. Concentric left ventricular remodeling. LVEF is normal. Overall wall motion is normal. Estimated EFis 65-69% RV: RV size is normal. RV systolic function is normal. RV wall motionis normal. LA: LA size is normal. RA: RA size is normal. AO: Aortic root diameter is normal. JASWINDER: No pericardial effusion. AV: Mild thickening and calcification of AV leaflets. MV: Focal calcification of mitral leaflets. Mild mitral annular calcification. PV: No structural PV abnormalities noted. A trace of pulmonic regurgitation. TV: No structural TV abnormalities noted. A trace of tricuspid regurgitation Obando: LV relaxation is impaired. LV filling pressure is elevated. Other:Estimated PA systolic pressure is 32 mmHg, assuming a mean RAPof 5 mmHg. MEASUREMENTS: 2D Parasternal Long [place] LVOT 2 cmLA Ds3.4 cm LVIDd3.6 cmIndex1.6 cm/m Ao Rtd 2.9 cm Index1.3 cm/m LVIDs2.3 cmLV Hnud190.6 g(87-129) LV%fs 36.5 % LVM Index 54.7 g/m2 IVSd 1.2 cmRWT0.5 LVPWd1 cm LA Sng Plane LA Area 21.5 cm2(8.8-23.4) LA Vol68.8 ml Index30.5 ml/m LA LngAx 5.6 cm Signed 04/14/2018 01:11 PM Lelia Up M.D. Procedure Note Interface, Radiology Results In - 04/14/2018 1:11 PM CDT Echocardiography Report [address] [address], [place] [address] [facility].Name: CHRISTY FRANK Ami.ID: [id number] .Date: 04/14/2018 Refer.MD: KERRI BLEVINS MD Exam Time: 8:34:00 AM Study Type:Routine Echo Height: 66in Weight: 267lb BSA: 2.26 m2 Age: 9 1955,62Y Sex: FEMALE BP: 138/63 HR: 79 bpm Sonogrphr: DANIELLA Horner Pat. Stat.:Inpatient Room: [facility] Study Status:Final Echo Event ID:[id number] Order ID: [id number] Reason for Study:[facility] Valvular Regurgitation - Routine surveillance (<1 y) of moderate or severe valvular regurgitation without a change in clinical status or cardiac exam; evaluate pericardial effusion History / Clinical:Chest Pain, Diabetes, Hypertension Procedures:2D Echo, Colorflow Doppler, Intravenous Definity Contrast Race: C SUMMARY: LV EF is normal. RV systolic function is normal. FINDINGS: LV: LV size is normal. Concentric left ventricular remodeling. LV EF is normal. Overall wall motion is normal. Estimated EF is 65-69% RV: RV size is normal. RV systolic function is normal. RV wall motion is normal. LA: LA size is normal. RA: RA size is normal. AO: Aortic root diameter is normal. JASWINDER: No pericardial effusion. AV: Mild thickening and calcification of AV leaflets. MV: Focal calcification of mitral leaflets. Mild mitral annular calcification. PV: No structural PV abnormalities noted. A trace of pulmonic regurgitation. TV: No structural TV abnormalities noted. A trace of tricuspid regurgitation Obando: LV relaxation is impaired. LV filling pressure is elevated. Other: Estimated PA systolic pressure is 32 mmHg, assuming a mean RAP of 5 mmHg. MEASUREMENTS: 2D Parasternal Long [place] LVOT 2 cm LA Ds 3.4 cm LVIDd 3.6 cm Index 1.6 cm/m Ao Rtd 2.9 cm Index 1.3 cm/m LVIDs 2.3 cm LV Mass 123.6 g (87-129) LV%fs 36.5 % LVM Index 54.7 g/m2 IVSd 1.2 cm RWT 0.5 LVPWd 1 cm LA Sng Plane LA Area 21.5 cm2 (8.8-23.4) LA Vol 68.8 ml Index 30.5 ml/m LA LngAx 5.6 cm Signed 04/14/2018 01:11 PM Lelia Up M.D. Performing Organization Address City/[facility] Centercode Phone Number [facility] [address] [place] [address] * Estimated GFR (04/14/2018 5:07 AM CDT) Only the most recent of 3 results within the time period is included. GFR Non Af Amer 28 (A) mL/min/1.73 m2 [facility] DEPARTMENT OF PATHOLOGY AND GENOMIC MEDICINE GFR Af Amer 34 (A) mL/min/1.73 m2 [facility] DEPARTMENT OF Comment: PATHOLOGY AND Chronic kidney disease: <60 GENOMIC MEDICINE mL/min/1.73m2 Kidney failure: <15 mL/min/1.73m2 The estimated GFR is calculated from the IDMS-traceable Modification of Diet in Renal Disease Equation. The accuracy of the calculation is poor when the creatinine is normal. Calculated values >90 mL/min/1.73m2 are not reported. This equation has not been validated in children (<18 years), women, the elderly (>70 years), or ethnic groups other than Caucasians and Americans. Specimen Plasma specimen Performing Organization Address City/[facility]/Zipcode Phone Number [facility] DEPARTMENT OF [address] [place] [address] PATHOLOGY AND GENOMIC MEDICINE * XR Chest 2 Vw (04/13/2018 5:53 PM CDT) Narrative Performed At Examination:XR CHEST 2 VW HM [facility] Clinical History: Cough, Pleural Effusions, Pleuritic chest pain on the rt. Comparison: April 13, 2018 Technique: Frontal and lateral views of the chest Impression: Stable dialysis catheter in the right atrium. Left basilar subsegmental atelectasis. Lungs are otherwise clear. Heart size and pulmonary vascularity within normal limits. [facility] [id number] Procedure Note Hm Interface, Radiology Results Incoming - 04/13/2018 6:02 PM CDT Examination: XR CHEST 2 VW Clinical History: Cough, Pleural Effusions, Pleuritic chest pain on the rt. Comparison: April 13, 2018 Technique: Frontal and lateral views of the chest Impression: Stable dialysis catheter in the right atrium. Left basilar subsegmental atelectasis. Lungs are otherwise clear. Heart size and pulmonary vascularity within normal limits. [facility]-[id number] Performing Organization Address [facility] Centercode Phone Number [facility] [address] [place] [address] * Iron level (04/13/2018 10:14 AM CDT) Iron level 50 37 - 145 ug/dL [facility] DEPARTMENT OF PATHOLOGY AND GENOMIC MEDICINE Specimen Plasma specimen Performing Organization Address [facility] Centercooh Phone Number [place] [address] PATHOLOGY AND [facility] MEDICINE * C-reactive protein (04/13/2018 12:36 AM CDT) CRP 1.03 (H) 0.00 - 0.50 mg/dL [facility] DEPARTMENT OF PATHOLOGY AND GENOMIC MEDICINE Specimen Plasma specimen Performing Organization Address [facility] Phone Number [place] [address] PATHOLOGY AND [facility] MEDICINE * Sedimentation rate (04/13/2018 12:20 AM CDT) Sedimentation rate 85 (H) 0 - 20 mm/hr [facility] DEPARTMENT OF PATHOLOGY AND GENOMIC MEDICINE Specimen Blood Performing Organization Address [facility] Phone Number [place] [address] PATHOLOGY AND [facility] MEDICINE * CRITICAL CARE (04/12/2018 3:52 PM CDT) Narrative Performed At Sharda Heaton MD 04/12/2018 10:40 PM Critical Care Performed by: SHARDA HEATON Authorized by: SHARDA HEATON Critical care provider statement: Critical care time (minutes):35 Critical care time was exclusive of:Separately billable procedures and treating other patients and teaching time Critical care was necessary to treat or prevent imminent or life-threatening deterioration of the following conditions:Endocrine crisis Critical care was time spent personally by me on the following activities:Development of treatment plan with patient or surrogate, discussions with consultants, examination of patient, evaluation of patient's response to treatment, interpretation of cardiac output measurements, obtaining history from patient or surrogate, ordering and performing treatments and interventions, ordering and review of laboratory studies, pulse oximetry and re-evaluation of patient's condition Alfonso 'yes' if you are taking over critical care for this patient from another provider.: no * Lipase level (04/12/2018 3:38 PM CDT) Lipase 22 13 - 60 U/L [facility] DEPARTMENT OF PATHOLOGY AND GENOMIC MEDICINE Specimen Plasma specimen Performing Organization Address City/[facility] Centerco[facility] Phone Number [facility] [place] [address] PATHOLOGY AND GENOMIC MEDICINE * Lactic acid level (04/12/2018 3:38 PM CDT) Lactic acid 1.2 0.5 - 2.2 mmol/L [facility] DEPARTMENT OF PATHOLOGY AND GENOMIC MEDICINE Specimen Plasma specimen Performing Organization Address City/[facility] Phone Number [facility] DEPARTMENT [address] [address] PATHOLOGY AND GENOMIC MEDICINE after 03/22/2018 Insurance Payer Benefit Subscriber ID Type Phone Address Plan / Group UHC MEDICARE AARP xxxxxxxxx HMO MEDICARE COMPLETE [facility] Advance Directives Patient has advance care planning documents, and code status on file. For more i nformation, please contact: Ki Terry [address] [place] [phone] Date Inactivated Comments Code Status Date Activated 12/08/2018 12:08 AM Full Code 12/02/2018 11:52 PM Code Status decision reached by: Patient 12/30/2017 12:05 AM Full Code 12/20/2017 11:13 AM Code Status decision reached by: Patient 12/04/2017 8:43 PM Full Code 12/01/2017 8:03 PM Code Status decision reached by: Patient
--- OUTSIDE RECORDS SUMMARY | 2019-03-23 15:54 | XMS REPORT | Summary of Care ---
Author Author COOPER Mcghee, AMY Russell Unknown Address Unknown Phone Unavailable Care Team Providers Care Fusion Analyst Name Role Phone AMY GAMBOA M.D. Unavailable Unavailable NNEKA BROOKS M.D. Unavailable Unavailable SERJIO NUÑEZ MD Unavailable Unavailable Unavailable Unavailable Functional Status Name Dates Details Functional status health issues are not documented Status: Name Dates Details Cognitive status health issues are not documented Status: Problems Name Dates Details Amnesia (retrograde) (780.93, R41.2) Status: Active Depressive disorder (311, F32.9) Status: Active Vertigo (780.4, R42) Status: Active Thyroid nodule (241.0, E04.1) Status: Active Tension type headache (339.10, G44.209) Status: Active Diabetes mellitus type 2, uncontrolled (250.02, E11.65) Status: Active Essential hypertension, benign (401.1, I10) Status: Active Hyperlipidemia (272.4, E78.5) Status: Active Intercostal pain (786.59, R07.82) Status: Active Long-term insulin use (V58.67, Z79.4) Status: Active Morbid obesity (278.01, E66.01) Status: Active Nontoxic multinodular goiter (241.1, E04.2) Status: Active Polyneuropathy (356.9, G62.9) Status: Active Sciatica (724.3, M54.30) Status: Active Shortness of breath (786.05, R06.02) Status: Active 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 * Quantity: 30 Refills: 1 COOPER Mcghee, AMY * Start : 23-May-2017 Active Carvedilol 3.125 MG Oral Tablet TAKE 1 TABLET BY MOUTH TWICE DAILY WITH MEALS * Quantity: 180 Refills: 0 COOPER Mcghee, AMY * Start : 22-Dec-2017 Active Allergies and Adverse Reactions Name Dates Details Influenza (Split PF) (Allergy) Status: Active Januvia TABS (Adverse Event) Reaction: Vomiting Status: Active MetFORMIN HCl TABS (Adverse Event) Reaction: Vomiting Status: Active Past Medical History Name Dates Details History of Degeneration of cervical intervertebral disc (722.4, M50.30) Status: Resolved History of Depressive disorder (311, F32.9) Status: Resolved History of Diabetes mellitus type 2, uncontrolled (250.02, E11.65) Status: Resolved History of essential hypertension (V12.59, Z86.79) Status: Resolved History of Pure hypercholesterolemia (272.0, E78.00) Status: Resolved History of Status post gastric banding (V45.86, Z98.84) Status: Resolved Nontoxic multinodular goiter (241.1, E04.2) Status: Resolved Personal history of asthma (V12.69, Z87.09) Status: Resolved Procedures Procedure Dates Details History of Abdominoplasty Completed History of Cholecystectomy Completed History of Hysterectomy Completed History of Salpingo-oophorectomy Bilat Laparosc Removal Of Both Ovaries & Tubes Completed History of Surgical Drainage Of Peritoneal Abscess Completed History of Liposuction Completed History of Knee Repair Completed History of bladder surgery Completed Immunization Name Dates Details Immunizations not documented Family History Name Dates Details Family history of Essential Hypertension Comments: Family History Status: Active Family history of Diabetes Mellitus (V18.0) Comments: Family History Status: Active Family history of Cardiovascular Disorder (V17.49) Comments: Family History Status: Active Name Dates Details Family history of Essential Hypertension Status: Active Family history of Diabetes Mellitus (V18.0) Status: Active Family history of gallbladder disease (V18.59, Z83.79) Status: Active Family history of ESRD (end stage renal disease) (585.6, N18.6) Status: Active Name Dates Details Family history of Diabetes Mellitus (V18.0) Status: Active Name Dates Details Family history of gallbladder disease (V18.59, Z83.79) Status: Active Name Dates Details Family history of Essential Hypertension Status: Active Family history of Diabetes Mellitus (V18.0) Status: Active Family history of Cardiovascular Disorder (V17.49) Status: Active Family history of ESRD (end stage renal disease) (585.6, N18.6) Status: Active Social History Name Dates Details - Status: Name Dates Details Never smoker Never smoker Vital Signs Date Test Result Details No Known Vitals to report Results Date Description Value Details Results not documented Plan of Care Name Dates Details Planned Observations Planned Goals not documented Instructions Name Dates Details Instructions not documented Encounters Appointment; AMY GAMBOA M.D. Encounter Diagnosis: Problem not documented On: 31-Jan-2016 13:00 Appointment; SE, ECHO Encounter Diagnosis: Problem not documented On: 08-Feb-2016 10:00 Appointment; NNEKA BROOKS M.D. Encounter Diagnosis: Problem not documented On: 15-Feb-2016 9:00 Appointment; [facility] NUCLEAR Encounter Diagnosis: Problem not documented On: 22-Feb-2016 8:15 Appointment; [facility] NUCLEAR Encounter Diagnosis: Problem not documented On: 21-Mar-2016 7:30 Appointment; AMY GAMBOA M.D. Encounter Diagnosis: Problem not documented On: 09-Apr-2016 9:50 Appointment; NNEKA BROOKS M.D. Encounter Diagnosis: Problem not documented On: 12-Jun-2016 9:00 Appointment; [facility]IBR[address] Encounter Diagnosis: Problem not documented On: 01-Jul-2016 10:00 Appointment; AMY GAMBOA M.D. Encounter Diagnosis: Problem not documented On: 23-May-2017 13:30 Appointment; AMY GAMBOA M.D. Encounter Diagnosis: Problem not documented On: 06-Jun-2017 15:15
[2019-03-23 16:31] LABS: BASOPHILS # (AUTO) 0.1 (0.0-0.1); BASOPHILS % 0.9 % (0.0-1.0); EOSINOPHILS # (AUTO) 0.2 (0.0-0.4); EOSINOPHILS % 3.3 % (0.0-6.0); HEMATOCRIT 42.8 % (34.2-44.1); HEMOGLOBIN 13.4 g/dL (12.0-16.0); LYMPHOCYTES # (AUTO) 0.9 (1.0-3.2); LYMPHOCYTES % 14.3 % (18.0-39.1); MEAN CORPUSCULAR HEMOGLOBIN 31.1 pg (28-32); MEAN CORPUSCULAR HGB CONC 31.3 g/dL (31-35); MEAN CORPUSCULAR VOLUME 99.3 fL (81-99); MONOCYTES # (AUTO) 0.6 (0.2-0.8); MONOCYTES % 9.4 % (4.4-11.3); NEUTROPHILS # (AUTO) 4.7 (2.1-6.9); NEUTROPHILS % 71.5 % (38.7-80.0); PLATELET COUNT 203 x10e3/uL (140-360); RED BLOOD COUNT 4.31 x10e6/uL (3.6-5.1)
[2019-03-23 16:46] LABS: INR 0.92; PROTHROMBIN TIME 12.9 seconds (11.9-14.5)
[2019-03-23 16:48] LABS: PARTIAL THROMBOPLASTIN TIME 64.9 seconds (23.8-35.5)
[2019-03-23 16:56] LABS: ALBUMIN 3.5 g/dL (3.5-5.0); ALBUMIN/GLOBULIN RATIO 0.7 (0.8-2.0); CREATININE, SERUM 3.66 mg/dL (0.57-1.11)
[2019-03-23 17:02] LABS: CREATINE KINASE MB 1.8 ng/mL (0-5.0)
--- NOTE | 2019-03-23 17:23 | Diagnostic Imaging Report ---
EXAMINATION: CHEST SINGLE (PORTABLE) INDICATION: Chest pain. COMPARISON: None FINDINGS: TUBES and LINES: Left sided dialysis catheter with distal tips in the atrium. LUNGS: The lungs are hypoinflated. There is no evidence of pneumonia or pulmonary edema. PLEURA: No pleural effusion or pneumothorax. HEART AND MEDIASTINUM: The cardiomediastinal silhouette is unremarkable. BONES AND SOFT TISSUES: No acute osseous lesion. UPPER ABDOMEN: No free air under the diaphragm. IMPRESSION: 1. Bibasilar subsegmental atelectasis. Signed by: Dr. Alice White M.D. on 03/23/2019 5:19 PM
[2019-03-23] MEDS ORDERED: NITROGLYCERIN 0.4 MG SUBL SL PRN (18:15)
[2019-03-23] MEDS ORDERED: DEXTROSE 50% SYRINGE 50 ML IV PRN (18:15)
[2019-03-23] MEDS ORDERED: SODIUM CHLORIDE FLUSH 10 ML SYR INJ PRN (18:15)
[2019-03-23] MEDS ORDERED: ONDANSETRON HCL INJ 2MG/ML 2ML 2 MG/ML VIAL IV PRN (18:15)
--- OUTSIDE RECORDS SUMMARY | 2019-03-23 18:24 | XMS REPORT | Clinical Summary ---
Author Author [facility] Organization [facility] Address Unknown Phone Unavailable Care Team Providers Care Car Rental Deliverer Name Role Phone Lu Nieto MD PCP Allergies Comments Active Allergy Reactions Severity Noted Date Anaphylaxis Hydromorphone High 12/04/2018 Fingers and lips turn black Flu Vaccine Shortness Of High 08/18/2017 [id number](36mo,Up) Breath Bleeding and vomiting Sitagliptin Other (See [...] hyperglycemia, with long-term current use of insulin ([facility]) 09/03/2018 Discontinued insulin ASPART (NovoLOG) 10-15 units 5 5 pen 0 100 unit/mL insulin min prior to 8 penIndications: Type 2 each meal diabetes mellitus with hyperglycemia, with long-term current use of insulin ([facility]) 08/10/2018 Discontinued PARoxetine (PAXIL) 40 MG Take [...] hyperglycemia, with long-term current use of insulin ([facility]) 09/27/2018 Discontinued insulin ASPART (NovoLOG) 10-15 units 5 5 pen 0 100 unit/mL insulin min prior to 8 penIndications: Type 2 each meal diabetes mellitus with hyperglycemia, with long-term current use of insulin ([facility]) 12/14/2018 Discontinued levothyroxine (SYNTHROID, 1 tab daily [...] hyperglycemia, with long-term current use of insulin ([facility]) 10/02/2018 Discontinued insulin ASPART (NovoLOG) 10-15 units 5 15 pen 1 100 unit/mL insulin min prior to 8 penIndications: Type 2 each meal diabetes mellitus with hyperglycemia, with long-term current use of insulin ([facility]) 12/14/2018 Discontinued insulin lispro (HumaLOG Inject to [...] hyperglycemia, with long-term current use of insulin ([facility]) 12/14/2018 Discontinued doxycycline (VIBRA-TABS) Take 1 tablet [...] Overview: Added automatically from request for surgery [id number] History of weight loss surgery 09/27/2018 Labile blood pressure 09/27/2018 History of colonoscopy 2016 09/27/2018 PVD (peripheral vascular disease) 09/27/2018 Bypass graft stenosis 09/16/2018 Overview: Added automatically from request for surgery [id number] Acquired hypothyroidism 08/31/2018 Acute pulmonary edema 08/29/2018 [...] Overview: Added automatically from request for surgery [id number] Incomplete bladder emptying 11/26/2017 Vaginal atrophy 11/26/2017 [...] s/p MRI in the past Evaluated in [facility] by neurosurgery Pt also with many year [...] thelast was roughly 6 months ago at [facility]. We do not have these records. She [...] Swati, MD ESRD (end stage renal disease) ([facility]) (Primary Dx); Complications, mechanical, catheter, dialysis, initial encounter (HCC) 02/27/2019 Emergency General Internal Medicine - 02/28/2019 Jarvis Leblanc MD RUE Fistulogram 02/26/2019 Surgery Vascular Surgery Ana Hudson MD 02/26/2019 Anesthesia Vascular Surgery Event Jarvis Leblanc MD Malfunction of arteriovenous dialysis fistula, initial encounter ([facility]); ESRD (end stage renal disease) ([facility]) 02/26/2019 [facility] Vascular Surgery Encounter Adam Abarca DO Urinary tract infection without hematuria, site unspecified (Primary Dx) 02/18/2019 Emergency Emergency Medicine - 02/19/2019 02/18/2019 Travel Shayla Antonio RN 02/18/2019 Telephone Cardiovascular Jarvis Leblanc MD Malfunction of arteriovenous dialysis fistula, initial encounter ([facility]) (Primary Dx); ESRD (end stage renal disease) ([facility]) 02/17/2019 Office Visit Cardiovascular Shayla Antonio RN Malfunction of arteriovenous dialysis fistula, initial encounter ([facility]) (Primary Dx); ESRD (end stage renal disease) ([facility]) 02/17/2019 Prep for Cardiovascular Surgery Silvina Lanza [...] fistula, initial encounter (HCC); Other hypervolemia 12/14/2018 [facility] Internal Medicine - Encounter 12/16/2018 Shayla Antonio RN Malfunction of arteriovenous dialysis fistula, initial encounter (HCC) (Primary Dx) 12/04/2018 Orders Only Cardiovascular Nii Galicia MD Badam, Manjulatha, MD Ogbonna, Martina C., MD Right arm pain (Primary Dx); Malfunction of arteriovenous graft, initial encounter (HCC); Malfunction of arteriovenous dialysis fistula, initial encounter (HCC) 12/02/2018 [facility] Internal Medicine - Encounter 12/07/2018 Heather [...] Malfunction of arteriovenous dialysis fistula, sequela 09/28/2018 [facility] General Internal Medicine - Encounter 09/29/2018 Miguel Mederos MD Type 2 diabetes mellitus with hyperglycemia, with long-term current use of insulin (HCC) 09/25/2018 Refill Internal Medicine Lu Nieot MD Annual physical exam (Primary Dx); Need [...] use of insulin (HCC); Acquired hypothyroidism 08/29/2018 [facility] General Internal Medicine - Encounter 09/03/2018 Lu [...] Date Type Specialty Lu Nieto MD [address] [facility] [address] [place] [address] Shan Mar MD [address] [facility] [address] [place] [address] 03/26/2019 Office Visit Orthopedic Surgery Jarvis Leblanc MD [address] [facility] [address] [place], [place] [phone] 03/31/2019 Office Visit Cardiovascular Heather Voss MD [address] [facility] [address] [place], [place] [phone] 04/21/2019 Office Visit Endocrinology Lu Nieto MD [address] [facility] [address] [place] [address] 06/21/2019 Office Visit Internal Medicine [...] Lot Implanted Type Area Manufactur er 02/15/2020 [id number] / / [id number] Catheter Dialysis Glidepath Central Left: Chest BARD [id number] Symmetric Tip - Venous PERIPHERAL [id number] Catheters VASCULAR Implanted: Qty: 1 on 02/26/2019 by Jarvis Leblanc MD 09/16/2019 [id number] / / [id number] Catheter Dialysis Glidepath Implantabl N/A: N/A BARD [id number] Symmetric Tip - e Infusion PERIPHERAL [id number] Ports or VASCULAR Implanted: 12/02/2017 (Quantity not Accessorie on file) s 05/16/2020 [id number] / / [id number] Catheter Dialysis Glidepath Implantabl N/A: N/A BARD [id number] Symmetric Tip - e Infusion PERIPHERAL [id number] Ports or VASCULAR Implanted: 09/02/2018 (Quantity not Accessorie on file) s 06/03/2022 [id number] / / [id number] Clip Ligtng Weck Hemoclip Plus W/ Medical Right: Arm, WECK Tape Ti Sm - [id number] Clips for Lower CLOSURE Implanted: Qty: 2 on 12/22/2017 by Internal SYSTEMS Jarvis Leblanc MD Use 06/30/2022 [id number] / / [id number] Clip Ligtng Weck Hemoclip Plus W/ Medical Right: Arm, TELEFLEX Tape Ti Med - [id number] Clips for Lower MEDICAL Implanted: Qty: 2 on 12/22/2017 by Internal Jarvis Leblanc MD Use [id number] / / Catheter Group Work Program Director 4x75cm 6mm Conquest - Surgical N/A: N/A BARD [id number] Implants; PERIPHERAL Implanted: 03/23/2018 (Quantity not Expanders; [...] CDT POC GLUCOSE Routine 12/16/2018 12:33 PM [facility] [facility] [facility] POC GLUCOSE Routine 12/16/2018 11:07 AM [employer] POC GLUCOSE Routine 12/16/2018 8:41 AM [employer] HEMODIALYSIS Routine 12/16/2018 6:56 AM [employer] ESTIMATED GFR Routine 12/16/2018 4:43 AM [employer] BASIC METABOLIC PANEL Routine 12/16/2018 4:43 AM [employer] HC COMPLETE BLD COUNT Routine 12/16/2018 W/AUTO DIFF 4:43 AM [employer] VANCOMYCIN LEVEL, RANDOM Routine 12/16/2018 4:43 AM [employer] POC GLUCOSE Routine 12/15/2018 8:52 PM [employer] POC GLUCOSE Routine 12/15/2018 5:42 PM [employer] US DUPLEX HEMODIALYSIS Routine 12/15/2018 AVG AVF ACCESS 3:45 PM [employer] POC GLUCOSE Routine 12/15/2018 11:26 AM [employer] POC GLUCOSE Routine 12/15/2018 10:14 AM [employer] POC GLUCOSE Routine 12/15/2018 7:38 AM [employer] ESTIMATED GFR Routine 12/15/2018 5:26 AM [employer] HC COMPLETE BLD COUNT Routine 12/15/2018 W/AUTO DIFF 5:26 AM [employer] PHOSPHORUS LEVEL Routine 12/15/2018 5:26 AM [employer] MAGNESIUM LEVEL Routine 12/15/2018 5:26 AM [employer] BASIC METABOLIC PANEL Routine 12/15/2018 5:26 AM [employer] VITAMIN D 25 HYDROXY Routine 12/15/2018 LEVEL 5:26 AM [employer] [facility] PARATHYROID HORMONE Routine 12/15/2018 5:26 AM [employer] TRANSFERRIN LEVEL Routine 12/15/2018 5:26 AM [employer] TOTAL IRON BINDING Routine 12/15/2018 CAPACITY 5:26 AM [employer] FERRITIN LEVEL Routine 12/15/2018 5:26 AM [employer] POC GLUCOSE Routine 12/14/2018 11:42 PM [employer] POC GLUCOSE Routine 12/14/2018 10:46 PM [employer] POC GLUCOSE Routine 12/14/2018 9:44 PM [employer] TROPONIN Timed 12/14/2018 5:10 PM [employer] BLOOD CULTURE, AEROBIC & Routine 12/14/2018 ANAEROBIC 5:10 PM [employer] POC GLUCOSE Routine 12/14/2018 3:58 PM [employer] HEMODIALYSIS Routine 12/14/2018 2:03 PM [employer] LACTIC ACID LEVEL, SEPSIS Timed 12/14/2018 - NOW AND REPEAT 2X EVERY 12:47 PM [employer] [facility] 3 HOURS TROPONIN Timed 12/14/2018 12:47 PM [facility] XR CHEST 1 VW PORTABLE STAT 12/14/2018 12:14 PM [employer] ECG ED PRELIMINARY Routine 12/14/2018 INTERPRETATION 10:47 AM [employer] POC GLUCOSE Routine 12/14/2018 10:47 AM [employer] ESTIMATED GFR STAT 12/14/2018 10:37 AM [facility] [facility] LACTIC ACID LEVEL, SEPSIS Timed 12/14/2018 - NOW AND REPEAT 2X EVERY 10:37 AM [facility] [facility] 3 HOURS PROTHROMBIN TIME WITH INR STAT 12/14/2018 10:37 AM [facility] [facility] PARTIAL THROMBOPLASTIN STAT 12/14/2018 TIME (PTT) 10:37 AM [employer] [facility] B NATRIURETIC PEPTIDE STAT 12/14/2018 10:37 AM [employer] TROPONIN STAT 12/14/2018 10:37 AM [employer] COMPREHENSIVE METABOLIC STAT 12/14/2018 PANEL 10:37 AM [employer] HC COMPLETE BLD COUNT STAT 12/14/2018 W/AUTO DIFF 10:37 AM [employer] ECG 12-LEAD STAT 12/14/2018 10:08 AM [employer] POC GLUCOSE Routine 12/07/2018 4:04 PM [employer] ESTIMATED GFR Routine 12/07/2018 3:55 PM [employer] BASIC METABOLIC PANEL Routine 12/07/2018 3:55 PM [employer] POC GLUCOSE Routine 12/07/2018 3:15 PM [employer] CBC HEMOGRAM Routine 12/07/2018 2:30 PM [employer] POC GLUCOSE Routine 12/07/2018 12:27 PM [employer] HEMODIALYSIS Routine 12/07/2018 12:[address] [address] UPPER EXTREMITY W Routine 12/07/2018 CONTRAST RIGHT 10:35 AM [employer] POC GLUCOSE Routine 12/07/2018 7:56 AM [employer] VANCOMYCIN LEVEL, RANDOM Routine 12/07/2018 4:59 AM [employer] POC GLUCOSE Routine 12/07/2018 4:36 AM [employer] POC GLUCOSE Routine 12/06/2018 8:32 PM [employer] POC GLUCOSE Routine 12/06/2018 4:51 PM [employer] POC GLUCOSE Routine 12/06/2018 12:11 PM [employer] US DUPLEX VENOUS UPPER Routine 12/06/2018 EXTREMITY RIGHT 11:30 AM [employer] POC GLUCOSE Routine 12/06/2018 8:06 AM [employer] GRAM STAIN Routine 12/06/2018 7:44 AM [employer] URINE CULTURE Routine 12/06/2018 7:44 AM [employer] URINALYSIS SCREEN AND Routine 12/06/2018 MICROSCOPY, WITH REFLEX 5:18 AM [employer] TO CULTURE POC GLUCOSE Routine 12/05/2018 8:35 PM [employer] POC GLUCOSE Routine 12/05/2018 4:39 PM [employer] POC GLUCOSE Routine 12/05/2018 11:14 AM [employer] ESTIMATED GFR Routine 12/05/2018 9:00 AM [facility] [facility] BASIC METABOLIC PANEL Routine 12/05/2018 9:00 AM [employer] POC GLUCOSE Routine 12/05/2018 7:28 AM [employer] POC GLUCOSE Routine 12/05/2018 5:41 AM [employer] ESTIMATED GFR STAT 12/05/2018 4:28 AM [employer] COMPREHENSIVE METABOLIC STAT 12/05/2018 PANEL 4:28 AM [employer] [facility] HC COMPLETE BLD COUNT Routine 12/05/2018 W/AUTO DIFF 2:30 AM [employer] VENOUS BLOOD GAS STAT 12/05/2018 2:20 AM [facility] [facility] BLOOD CULTURE, AEROBIC & Routine 12/05/2018 ANAEROBIC 2:20 AM [employer] [facility] BLOOD CULTURE, AEROBIC & Routine 12/05/2018 ANAEROBIC 2:15 AM [employer] POC GLUCOSE Routine 12/05/2018 1:51 AM [employer] ESTIMATED GFR STAT 12/05/2018 1:33 AM [employer] [facility] BASIC METABOLIC PANEL STAT 12/05/2018 1:33 AM [employer] BETA HYDROXYBUTYRATE STAT 12/05/2018 1:33 AM [employer] POC GLUCOSE Routine 12/04/2018 9:18 PM [employer] PARTIAL THROMBOPLASTIN Routine 12/04/2018 TIME (PTT) 4:30 PM [employer] PROTHROMBIN TIME WITH INR Routine 12/04/2018 4:30 PM [employer] ESTIMATED GFR Routine 12/04/2018 1:51 PM [employer] HEPATITIS B SURFACE STAT 12/04/2018 ANTIGEN 1:51 PM [employer] [facility] BASIC METABOLIC PANEL Routine 12/04/2018 1:51 PM [employer] HC COMPLETE BLD COUNT Routine 12/04/2018 W/AUTO DIFF 1:51 PM [employer] POC GLUCOSE Routine 12/04/2018 1:50 PM [employer] XR CHEST 1 VW PORTABLE STAT 12/04/2018 9:12 AM [employer] MAGNESIUM LEVEL Routine 12/04/2018 9:00 AM [employer] ESTIMATED GFR Routine 12/04/2018 9:00 AM [employer] BASIC METABOLIC PANEL Routine 12/04/2018 9:00 AM [employer] CBC WITH PLATELET AND Routine 12/04/2018 DIFFERENTIAL 9:00 AM [employer] ECG 12-LEAD STAT 12/04/2018 8:36 AM [employer] POC GLUCOSE Routine 12/04/2018 7:15 AM [employer] POC GLUCOSE Routine 12/04/2018 5:28 AM [employer] POC GLUCOSE Routine 12/04/2018 3:35 AM [employer] POC GLUCOSE Routine 12/04/2018 2:07 AM [employer] POC GLUCOSE Routine 12/04/2018 1:32 AM [employer] POC GLUCOSE Routine 12/03/2018 8:42 PM [employer] POC GLUCOSE Routine 12/03/2018 5:52 PM [employer] IR TUNNELED DIALYSIS Routine 12/03/2018 CATHETER PLACEMENT 5:29 PM [employer] [facility] POC GLUCOSE Routine 12/03/2018 2:59 PM [employer] [facility] HEMODIALYSIS Routine 12/03/2018 12:10 PM [employer] POC GLUCOSE Routine 12/03/2018 10:47 AM [employer] US DUPLEX HEMODIALYSIS STAT 12/03/2018 AVG AVF ACCESS 9:54 AM [employer] ESTIMATED GFR Routine 12/03/2018 5:30 AM [employer] HEMOGLOBIN A1C Routine 12/03/2018 5:30 AM [employer] PARTIAL THROMBOPLASTIN Routine 12/03/2018 TIME (PTT) 5:30 AM [employer] PROTHROMBIN TIME WITH INR Routine 12/03/2018 5:30 AM [employer] COMPREHENSIVE METABOLIC Routine 12/03/2018 PANEL 5:30 AM [employer] HC COMPLETE BLD COUNT Routine 12/03/2018 W/AUTO DIFF 5:30 AM [employer] POC GLUCOSE Routine 12/03/2018 5:16 AM [employer] POC GLUCOSE Routine 12/03/2018 12:06 AM [employer] MANUAL DIFFERENTIAL STAT 12/02/2018 8:38 PM [employer] [facility] ESTIMATED GFR STAT 12/02/2018 8:38 PM [employer] [facility] COMPREHENSIVE METABOLIC STAT 12/02/2018 PANEL 8:38 PM [employer] [facility] CBC WITH PLATELET AND STAT 12/02/2018 DIFFERENTIAL 8:38 PM [employer] [facility] POC GLUCOSE Routine 11/25/2018 Uncontrolled type 2 8:35 AM [employer] [facility] diabetes mellitus with hyperglycemia (HCC) US THYROID Routine 11/19/2018 Thyroid nodule 1:47 PM [employer] [facility] THYROID PEROXIDASE Routine 10/17/2018 Hypothyroidism, ANTIBODY 10:59 AM [facility] [facility] unspecified type T4, FREE Routine 10/17/2018 Hypothyroidism, 10:59 AM [employer] [facility] unspecified type THYROID STIMULATING Routine 10/17/2018 Hypothyroidism, HORMONE 10:59 AM [employer] [facility] unspecified type POC GLUCOSE Routine 10/15/2018 Uncontrolled type 2 1:25 PM [employer] [facility] diabetes mellitus with hyperglycemia (HCC) POC GLUCOSE Routine 09/29/2018 8:26 AM [employer] POC GLUCOSE Routine 09/28/2018 5:35 PM [employer] POC GLUCOSE Routine 09/28/2018 1:37 PM [employer] HEMODIALYSIS Routine 09/28/2018 12:33 PM [employer] HEPATITIS B SURFACE STAT 09/28/2018 ANTIGEN 12:31 PM [employer] POC GLUCOSE Routine 09/28/2018 10:56 AM [employer] POC GLUCOSE Routine 09/28/2018 8:23 AM [employer] [facility] OR FL < 1 HOUR Routine 09/28/2018 8:05 AM [facility] FISTULOGRAPHY, DIALYSIS 09/28/2018 End stage renal disease SHUNT, AND DECLOTTING 7:30 AM [facility] [facility] (HCC) Bypass graft stenosis, initial encounter ([facility]) Case Notes @[id number] SHAYLA POSTED CASE VIA DEPOT-R/S FROM 09/21 TO 09/28-08/19 12/04TW POC PANEL 4 Routine 09/28/2018 6:37 AM [employer] [facility] [facility] US DUPLEX HEMODIALYSIS Routine 09/14/2018 Malfunction of [...] MMODE SPECTRAL 11:15 AM CDT COLOR DOPPLER (37562) HEMODIALYSIS Routine 08/30/2018 10:52 AM CDT POC [...] hyperglycemia, with long-term current use of insulin WA REMOVAL TUNNELED CV Routine 05/19/2018 ESRD (end stage renal CATH W/O SUBQ PORT OR 10:20 AM CDT disease) on dialysis PUMP POC GLUCOSE Routine 04/14/2018 12:43 PM CDT ECHOCARDIOGRAM 2D Routine 04/14/2018 COMPLETE W MMODE SPECTRAL 9:23 AM CDT COLOR DOPPLER ([id number]) POC GLUCOSE Routine 04/14/2018 8:08 AM CDT [...] PRELIMINARY Routine 04/12/2018 INTERPRETATION 3:52 PM CDT WA CRITICAL CARE, E/M Routine 04/12/2018 30-74 MINUTES [...] 65 - 99 mg/dL KI TERRY Comment: [facility] Notified RN Meter ID: [id number] Transition Mgr: Lynette Spicer Performing Organization Address [facility] Phone Number [facility] DEPARTMENT OF [address] [place] [address] PATHOLOGY AND [facility] MEDICINE [address] * Estimated GFR (02/28/2019 4:15 AM CDT) Only the most recent of 20 results within the time period is included. Estimated GFR 16 (A) mL/min/1.73 m2 KI TERRY Comment: HOSPITAL CatergoryUnitsInte rpretation G1 >=90 Normal or high G2 60-89Mildly decreased C0x14-55 Mildly to moderately decreased X5x20-62 Moderately to severely decreased G4 15-29Severely decreased G5 <15Kidney failure The eGFR was calculated using the Chronic Kidney Disease Epidemiology Collaboration (CKD-EPI) equation. Interpretation is based on recommendations of the National Kidney Foundation-Kidney Disease Outcomes Quality Initiative (NKF-KDOQI) published in 2014. Specimen Plasma specimen Performing Organization Address City/[facility] Phone Number [facility] DEPARTMENT OF [address] [place] [address] PATHOLOGY AND [facility] MEDICINE [address] * Troponin (02/28/2019 4:15 AM CDT) [...] injury. Specimen Plasma specimen Performing Organization Address City/[facility]/Zipcode Phone Number [facility] DEPARTMENT OF [address] [place] [address] PATHOLOGY AND GENOMIC MEDICINE [address] * CBC with platelet and differential (02/28/2019 4:15 AM CDT) Only the most recent of 20 results within the time period is included. WBC 5.85 4.50 - 11.00 k/uL [facility] RBC 4.22 4.20 - 5.50 m/uL [facility] HGB 13.4 12.0 - 16.0 g/dL [facility] HCT 44.5 37.0 - 47.0 % [facility] MCV 105.5 (H) 82.0 - 100.0 fL [facility] MCH 31.8 27.0 - 34.0 pg [facility] MCHC 30.1 (L) 31.0 - 37.0 g/dL [facility] RDW - SD 52.6 37.0 - 55.0 fL [facility] MPV 11.3 8.8 - 13.2 fL [facility] Platelet count 136 (L) 150 - 400 k/uL [facility] Nucleated RBC 0.00 /100 WBC [facility] Neutrophils 70.5 (H) 39.0 - 69.0 % [facility] Lymphocytes 15.0 (L) 25.0 - 45.0 % [facility] Monocytes 9.1 0.0 - 10.0 % [facility] Eosinophils 3.8 0.0 - 5.0 % [facility] Basophils 0.9 0.0 - 1.0 % [facility] Immature granulocytes 0.7Comment: "Immature 0.0 - 1.0 % [facility] granulocytes" (promyelocytes, HOSPITAL myelocytes, metamyelocytes) Specimen Blood Performing Organization Address City/[facility]/Zipcode Phone Number [facility] DEPARTMENT OF [address] [place] [id number] PATHOLOGY AND GENOMIC MEDICINE [address] * Comprehensive metabolic panel (02/28/2019 4:15 AM CDT) Only the most recent of 9 results within the time period is included. Sodium 136 135 - 148 mEq/L [facility] Potassium 4.4 3.5 - 5.0 mEq/L [facility] Chloride 97 (L) 98 - 112 mEq/L [facility] CO2 23 (L) 24 - 31 mEq/L [facility] Anion gap 16@ANIO (H) 7 - 15 mEq/L [facility] BUN 21 8 - 23 mg/dL [facility] Creatinine 2.89 (H) 0.50 - 0.90 mg/dL [facility] Glucose 232 (H) 65 - 99 mg/dL [facility] Calcium 8.1 (L) 8.8 - 10.2 mg/dL [facility] Protein 7.7 6.3 - 8.3 g/dL [facility] Comment: HOSPITAL 4.6-7.0 g/dL 1 week 4.4-7.6 g/dL 7 months-1year 5.1-7.3 g/dL 1-2 years5.6-7 .5 g/dL >3 years6.0-8 .0 g/dL 18-150 6.3-8.3 g/dL Albumin 3.1 (L) 3.5 - 5.0 g/dL [facility] A/G ratio 0.7 0.7 - 3.8 [facility] Alkaline phosphatase 176 (H) 35 - 104 U/L [facility] AST 26 10 - 35 U/L [facility] ALT 15 5 - 50 U/L [facility] Total bilirubin 0.3 0.0 - 1.2 mg/dL [facility] Specimen Plasma specimen Performing Organization Address City/State/Zipcode Phone Number [facility] DEPARTMENT OF [address] [place] [phone] PATHOLOGY [place] [address] HOSPITAL * ECG 12 lead (02/28/2019 1:32 AM CDT) Only the most recent of 7 results within the time period is included. Ventricular rate 85 [facility] Atrial rate 85 [facility] WA interval 126 [facility] QRSD interval 144 [facility] QT interval 406 [facility] QTC interval 483 [facility] P axis 1 66 [facility] QRS axis 1 36 [facility] T wave axis 55 [facility]USE EKG impression Normal sinus rhythm-Right [facility] MUSE bundle branch block-Abnormal ECG-In automated comparison with ECG of 02-FEB-2019 00:33,-No significant change was found- Narrative Performed At Performing Organization Address City/[facility]/Zipcode Phone Number [facility] MUSE [address] [place] [address] * Hepatitis B surface antigen (02/27/2019 6:37 PM CDT) Only the most recent of 5 results within the time period is included. Hepatitis B surface Ag Non-reactive Non-reactive [facility] Specimen Blood Performing Organization Address [facility] Phone Number [facility] DEPARTMENT OF [address] [place] [id number] PATHOLOGY AND GENOMIC MEDICINE [place] [id number] [facility] * XR Chest 1 Vw [...] the lung bases with mild vascular congestion. [facility]-[id number] Procedure Note Hm Interface, Radiology Results Incoming - 02/27/2019 2:40 PM CDT EXAMINATION: XR CHEST 1 VW PORTABLE CLINICAL HISTORY: chest pain COMPARISON: December 14, 2018 IMPRESSION: 1. Left jugular catheter extends into the right atrium. 2. Heart size is within normal limits for 3. There are some volume loss of the lung bases with mild vascular congestion. [facility]-[id number] Performing Organization Address [facility] Phone Number [facility] [address] [place] [address] * OR [place] < 1 Hour (02/26/2019 [...] C-arm fluoroscopy was requested in OR. LOCATION: [facility] Room #1 PROCEDURE: Removal of Rt. TDC/Insertion of LT. TDC START: 08:40 END: 09:00 FLUORO TIME: 01:49 minutes DOSE: 24.23 TECH(S): CECE IMPRESSION: Separate operative report will be issued by the physician performing the procedure. [id number] Performing Organization Address City/[facility]/Zipcode Phone Number [place], [place] [id number] * POC panel 4 (02/26/2019 7:50 AM CDT) Only the most recent of 3 results within the time period is included. POC sodium 135 135 - 148 mmol/L [facility] POC potassium 4.1 3.5 - 5.0 mmol/L [facility] POC hematocrit 43 37 - 47 % [facility] Comment: HOSPITAL Meter ID: [id number] Transition Mgr: Ray Maria POC glucose 317 (H) 65 - 99 mg/dL [facility] Performing Organization Address [facility] Phone Number [facility] DEPARTMENT OF [address] [place] [address] PATHOLOGY AND GENOMIC MEDICINE [address] * [place] Limited (02/19/2019 12:10 AM CDT) Narrative Performed At EXAMINATION:US LIMITED [facility] CLINICAL HISTORY:Abd painunspecified, check size of bladder COMPARISON:None. IMPRESSION: Focused sonographic examination of the urinary bladder was performed. Grayscale and color Doppler images obtained. Urinary bladder measures 6.2 x 4.4 x 7.8 cm, with estimated volume of 111.4 mL. Patient noted unable to void further, representing mildly elevated postvoid residual. [facility]-[id number] Procedure Note Interface, Radiology Results Incoming - [...] void further, representing mildly elevated postvoid residual. [facility]-[id number] Performing Organization Address [facility] Phone Number [facility] [address] [place] [address] * Urinalysis (02/18/2019 10:34 PM CDT) Glucose, UA Trace (A) Negative [facility] Bilirubin, UA Positive@UBIL (A) Negative [facility] Ketones, UA 1+ (A) Negative [facility] Specific gravity, UA 1.020 1.001 - 1.035 [facility] Blood, UA Large (A) Negative [facility] pH, UA 7.0 5.0 - 8.5 [facility] Protein, UA 3+ (A) Negative [facility] Urobilinogen, UA <2.0 <2.0 [facility] Nitrite, UA Positive (A) Negative [facility] Leukocyte esterase, UA Small (A) Negative [facility] Color, UA Red [facility] Appearance, UA Cloudy [facility] Specimen Urine Performing Organization Address [facility] [place] [address] PATHOLOGY AND GENOMIC MEDICINE, [address] * XR Foot 3+ Vw Right (02/02/2019 12:18 AM CDT) Narrative Performed At EXAMINATION:XR FOOT 3VW RIGHT [facility] CLINICAL HISTORY:big toe blisterr o osteo COMPARISON:None. IMPRESSION: No evidence of acute right foot fracture or dislocation. No radiographic evidence of osteomyelitis. Diffuse osteopenia. Diffuse soft tissue swelling. [facility]-[id number] Procedure Note Hm Interface, Radiology Results Incoming - 02/02/2019 12:28 AM CDT EXAMINATION: XR FOOT 3 VW RIGHT CLINICAL HISTORY: big toe blister r o osteo COMPARISON: None. IMPRESSION: No evidence of acute right foot fracture or dislocation. No radiographic evidence of osteomyelitis. Diffuse osteopenia. Diffuse soft tissue swelling. [facility]-[id number] Performing Organization Address [facility] Phone Number [facility] [address] [place] [address] * Basic metabolic panel (02/01/2019 10:04 PM CDT) Only the most recent of 14 results within the time period is included. Sodium 138 135 - 148 mEq/L [facility] Potassium 5.1 (H) 3.5 - 5.0 mEq/L [facility] Chloride 104 98 - 112 mEq/L [facility] CO2 21 (L) 24 - 31 mEq/L [facility] Anion gap 13@ANIO 7 - 15 mEq/L [facility] BUN 68 (H) 8 - 23 mg/dL [facility] Creatinine 4.82 (H) 0.50 - 0.90 mg/dL [facility] Glucose 390 (H) 65 - 99 mg/dL [facility] Calcium 8.0 (L) 8.8 - 10.2 mg/dL [facility] Specimen Plasma specimen Performing Organization Address [facility] Phone Number [facility] DEPARTMENT OF [address] [place] [address] PATHOLOGY AND GENOMIC MEDICINE [address] * Vancomycin level, random (12/16/2018 4:43 AM [facility]) Only the most recent of 2 results within the time period is included. Vancomycin, random 20.4 ug/mL [facility] Specimen Serum Performing Organization Address [facility] Phone Number [facility] DEPARTMENT OF [address] [place] [address] PATHOLOGY AND GENOMIC MEDICINE [address] * Us duplex hemodialysis avg avf access (12/15/2018 3:45 PM [facility]) Only the most recent of 4 results within the time period is included. Narrative Performed At [facility] Vascular Ultrasound Laboratory AV Graft - Fistula Report [address] [place] [address] Pat.Name:CHRISTY FRANK Mark.ID:[id number] .Date: 12/15/2018 Refer.MD:CARLOS CHISHOLM MD Exam Time: 2:58:00 PMStudy Type:AV Graft - Fistula Height:66inWeight:278lb BSA: 2.3 m0ITUTot:1955,63Y Sex: FEMALESonogrphr: Markos Leyva, RVT, RDMS Pat. Stat.:Inpatient Room:[address] TapeVol: , CPT - 4: 53029 Echo Event ID:[id number] Order ID:[id number] Reason for Study:Swelling and edema. PMH of [...] ARTERY/VEIN LOCATIONPSV (cm/sec) RIGHTBrachial Artery Proximal-third 232 Mid- Distal- Radial ArteryProximal-third 278 Mid-fwuzs796 Distal-wbrzy055 Ylkwuqgxlzt361 (ratio: 5.3) Cephalic Vein (forearm) Mdz-[id number]-escdr 87 VOLUME FLOW: [id number] cc/min 687 cc/min PRELIMINARY FINDINGS:(edited) 1. Patent [...] Radiology Results In - 12/15/2018 7:50 PM [facility] Vascular Ultrasound Laboratory AV Graft - Fistula Report [address] [place] [address] Pat.Name: CHRISTY FRANK Pat.ID: [id number] .Date: 12/15/2018 Refer.MD: CARLOS CHISHOLM MD Exam Time: 2:58:00 PM Study Type:AV Graft - Fistula Height: 66in Weight: 278lb BSA: 2.3 m2 Age: 9 1955,63Y Sex: FEMALE Sonogrphr: Markos Leyva RVT, [facility] Pat. Stat.:Inpatient Room: [address] Vol: , CPT - 4: 98234 Echo Event ID:[id number] Order ID: [id number] Reason for Study:Swelling and edema. PMH of [...] Rio Chapin MD, RPVI Performing Organization Address City/[facility]/Zipcode Phone Number [facility] [address] [place] [address] * Total iron binding capacity (12/15/2018 5:26 AM [facility]) Only the most recent of 2 results within the time period is included. Iron level 49 37 - 145 ug/dL [facility] Iron binding capacity 200 200 - 400 ug/dL [facility] % Saturation 24.5 15.0 - 38.0 % [facility] Specimen Plasma specimen Performing Organization Address [facility] Phone Number [facility] DEPARTMENT OF [address] [place] [address] PATHOLOGY AND GENOMIC MEDICINE [address] * Vitamin D 25 hydroxy level (12/15/2018 5:26 AM [facility]) Only the most recent of 2 results within the time period is included. Vitamin D, 25-hydroxy 8.2 (L) 30.0 - 150.0 ng/mL [facility] Comment: HOSPITAL This assay reports the sum [...] alternative methods. Specimen Blood Performing Organization Address City/[facility]/Zipcode Phone Number [facility] [place] [address] PATHOLOGY AND [facility] MEDICINE [address] * Transferrin level (12/15/2018 5:26 AM [facility]) Only the most recent of 2 results within the time period is included. Transferrin 175 (L) 200 - 360 mg/dL [facility] Specimen Plasma specimen Performing Organization Address [facility] Phone Number [facility] [place] [address] PATHOLOGY [address] * Phosphorus level (12/15/2018 5:26 AM [facility]) Only the most recent of 8 results within the time period is included. Phosphorus 3.8 2.4 - 4.5 mg/dL [facility] Specimen Plasma specimen Performing Organization Address [facility] Phone Number [facility] [place] [address] PATHOLOGY AND [facility] MEDICINE [address] * Parathyroid hormone (12/15/2018 5:26 AM [facility]) PTH 255 (H) 15 - 65 pg/mL [facility] Specimen Blood Performing Organization Address [facility] Phone Number [facility] [place] [address] PATHOLOGY AND [facility] MEDICINE [address] * Magnesium level (12/15/2018 5:26 AM [facility]) Only the most recent of 10 results within the time period is included. Magnesium 2.1 1.6 - 2.4 mg/dL [facility] Specimen Plasma specimen Performing Organization Address [facility] Phone Number [facility] [place] [address] PATHOLOGY AND [facility] MEDICINE [address] * Ferritin level (12/15/2018 5:26 AM [facility]) Only the most recent of 3 results within the time period is included. Ferritin level 1,238 (H) 13 - 150 ng/mL [facility] Specimen Plasma specimen Performing Organization Address City/[facility]/Zipcode Phone Number [facility] [place] [address] PATHOLOGY AND GENOMIC MEDICINE [address] * Blood culture, aerobic & anaerobic (12/14/2018 5:10 PM [facility]) Only the most recent of 3 results within the time period is included. Blood culture isolate No growth after 5 days of [facility] incubation. HOSPITAL Comment: Specimen Information Specimen Source: Blood Specimen Site: Antecubital, left Specimen Blood - Antecubital, left Performing Organization Address [facility] Phone Number [facility] [place] [address] PATHOLOGY AND GENOMIC MEDICINE [address] * Lactic acid level, SEPSIS - Now and repeat 2x every 3 hours (12/14/2018 12:47 PM [facility]) Only the most recent of 4 results within the time period is included. Lactic acid 1.1 0.5 - 2.2 mmol/L [facility] Specimen Blood Performing Organization Address City/[facility] Phone Number [facility] [place] [address] PATHOLOGY AND GENOMIC MEDICINE [address] * ECG ED Preliminary Interpretation - Not an Order (12/14/2018 10:47 AM [facility]) Only the most recent of 2 results within the time period is included. Narrative Performed At Kami Ojeda MD 12/17/20182:38 PM ECG ED Preliminary Interpretation - Not an Order Performed by: Kami Ojeda MD Authorized by: Kami Ojeda MD ECG reviewed by ED Physician in the absence of a motion graphics designer: yes Interpretation: Interpretation: abnormal Rate: ECG rate:92 ECG rate assessment: normal Rhythm: Rhythm: sinus rhythm Conduction: Conduction: abnormal Abnormal conduction: complete RBBB * Partial thromboplastin time, activated (12/14/2018 10:37 AM [facility]) Only the most recent of 4 results within the time period is included. PTT 30.2 23.0 - 36.0 sec [facility] Comment: HOSPITAL PTT therapeutic range for unfractionated heparin is 61.0-112.0 seconds which corresponds to Anti-Xa 0.3-0.7 U/ml. Specimen Blood Performing Organization Address City/[facility] Phone Number [facility] [place] [address] PATHOLOGY AND GENOMIC MEDICINE [address] * Prothrombin time with INR (12/14/2018 10:37 AM [facility]) Only the most recent of 4 results within the time period is included. Prothrombin time 13.6 11.5 - 14.5 sec [facility] INR 1.1 [facility] Comment: HOSPITAL The International Normalized Ratio (INR) is a therapeutic monitoring tool for patients who are stable on oral anticoagulant therapy. An INR of 2.0-3.0 is suggested for deep vein thrombosis/pulmonary embolism. Specimen Blood Performing Organization Address City/[facility] Phone Number [facility] [place] [address] PATHOLOGY AND GENOMIC MEDICINE [address] * B natriuretic peptide (12/14/2018 10:37 AM [facility]) Only the most recent of 3 results within the time period is included. BNP 62 0 - 100 pg/mL [facility] Specimen Blood Performing Organization Address City/[facility] Phone Number [facility] [place] [address] PATHOLOGY AND GENOMIC MEDICINE [address] * CBC hemogram (12/07/2018 2:30 PM [facility]) WBC 6.06 4.50 - 11.00 k/uL [facility] RBC 3.10 (L) 4.20 - 5.50 m/uL [facility] HGB 9.7 (L) 12.0 - 16.0 g/dL [facility] HCT 31.6 (L) 37.0 - 47.0 % [facility] MCV 101.9 (H) 82.0 - 100.0 fL [facility] MCH 31.3 27.0 - 34.0 pg [facility] MCHC 30.7 (L) 31.0 - 37.0 g/dL [facility] RDW - SD 49.1 37.0 - 55.0 fL [facility] MPV 11.1 8.8 - 13.2 fL [facility] Platelet count 210 150 - 400 k/uL [facility] Nucleated RBC 0.00 /100 WBC [facility] Performing Organization Address City/State/Zipcode Phone Number [facility] DEPARTMENT OF [address] [place] [address] PATHOLOGY AND GENOMIC MEDICINE [facility] [address] [place] [address] * CT Upper Extremity W Contrast Rt (12/07/2018 10:35 AM [facility]) Narrative Performed At EXAMINATION:CT UPPER EXTREMITY W [...] and forearm are not included within the uceco-wo-nrih. 4.Assessment of the arm and forearm demonstrates [...] findings and details as above. Procedure Note [facility], Radiology Results Incoming - 12/07/2018 10:55 AM [facility] EXAMINATION: CT UPPER EXTREMITY W CONTRAST RIGHT [...] and forearm are not included within the djphg-lp-ajmv. 4. Assessment of the arm and forearm [...] Performing Organization Address City/State/Zipcode Phone Number [facility] [address] [place] [address] * Us duplex venous upper extremity (12/06/2018 11:30 AM [facility]) Narrative Performed At [facility] Vascular Ultrasound Laboratory Upper Extremity Venous Report [address] [facility] [address], [place] [id number] Pat.Name:CHRISTY FRANK.ID:[id number] .Date: 12/06/2018 Refer.MD:BRITNEY SAENZ MD Exam Time: 10:52:00 AM Study Type:UE Venous Height:66inDOBAge:[birth year],63Y Sex: FEMALESonogrphr: Sarkis Ty RDMS, RVT Pat. Stat.:Inpatient Room:[address] TapeVol: , CPT - 4: 38[address] Echo Event ID:[id number] Order ID:[id number] Reason for Study:Arm swelling or pain. DVT [...] Radiology Results In - 12/06/2018 6:18 PM [facility] Vascular Ultrasound Laboratory Upper Extremity Venous Report [address] [place] [address] Pat.Name: CHRISTY FRANK Pat.ID: [id number] St.Date: 12/06/2018 Refer.MD: BRITNEY SAENZ MD Exam Time: 10:52:00 AM Study Type:UE Venous Height: 66in Age: 9 1955,63Y Sex: FEMALE Sonogrphr: Sarkis Ty RDMS, RVT Pat. Stat.:Inpatient Room: [address] Vol: , [facility] - 4: [address] Echo Event ID:[id number] Order ID: [id number] Reason for Study:Arm swelling or pain. DVT [...] Rio Chapin MD, RPVI Performing Organization Address [facility] Phone Number [facility] [address] [place] [address] * Gram stain (12/06/2018 7:44 AM [facility]) Only the most recent of 2 results within the time period is included. Gram stain result No WBC's [facility] Moderate Gram positive rods HOSPITAL Comment: Specimen Information Specimen Source: Urine Specimen Site: Clean catch Specimen Urine Performing Organization Address City/[facility]/Zipcode Phone Number [facility] DEPARTMENT OF [address] [place] [address] PATHOLOGY AND GENOMIC MEDICINE [facility] [address] [place] [address] HOSPITAL * Urine culture (12/06/2018 7:44 AM [facility]) Only the most recent of 2 results within the time period is included. Urine culture isolate growth after 24 hours [facility] Comment: HOSPITAL Specimen Information Specimen Source: Urine Specimen Site: Clean catch Specimen Urine Performing Organization Address [facility]/Zipcode Phone Number [facility] DEPARTMENT OF [address] [place] [address] PATHOLOGY AND GENOMIC MEDICINE [address] * Urinalysis screen and microscopy, with reflex to culture (12/06/2018 5:18 AM [facility]) Only the most recent of 2 results within the time period is included. Specimen site Clean catch [facility] Color, UA Yellow [facility] Appearance, UA Hazy [facility] Specific gravity, UA 1.017 1.001 - 1.035 [facility] pH, UA 5.0 5.0 - 8.5 [facility] Protein, UA 2+ (A) Negative [facility] Glucose, UA Negative Negative [facility] Ketones, UA Negative Negative [facility] Bilirubin, UA Negative Negative [facility] Blood, UA Negative Negative [facility] Nitrite, UA Negative Negative [facility] Urobilinogen, UA <2.0 <2.0 [facility] Leukocyte esterase, UA Trace (A) Negative [facility] Epithelial cells, UA >20 /HPF [facility] WBC, UA 7 (H) 0 - 4 /HPF [facility] RBC, UA 1 0 - 5 /HPF [facility] Bacteria, UA Many (A) None seen [facility] Yeast, UA Few (A) [facility] Yeast with pseudohyphae, None seen [facility] Hyaline casts, UA >20 (A) /LPF [facility] Specimen Urine Performing Organization Address City/[facility] [place] [address] PATHOLOGY AND GENOMIC MEDICINE [address] * Venous blood gas (12/05/2018 2:20 AM [facility]) Only the most recent of 2 results within the time period is included. pH, venous 7.30 (L) 7.32 - 7.42 [facility] pCO2, venous 56 (H) 45 - 51 mmHg [facility] pO2, venous 39 25 - 40 mmHg [facility] Base excess, venous 1 -2 - 2 meq/L [facility] O2 saturation, venous 68 40 - 70 % [facility] Bicarbonate, venous 27.1 21.0 - 28.0 mmol/L [facility] Specimen Blood Performing Organization Address City/[facility] Phone Number [facility] DEPARTMENT OF [address] [place] [address] PATHOLOGY AND GENOMIC MEDICINE [address] * Beta hydroxybutyrate (12/05/2018 1:33 AM [facility]) Beta hydroxybutyrate 0.96 (H) 0.02 - 0.27 mmol/L [facility] Specimen Serum Performing Organization Address City/State/Zipcode Phone Number [facility] DEPARTMENT OF [address] [place] [address] PATHOLOGY AND GENOMIC MEDICINE [address] * IR Tunneled Dialysis Catheter Placement (12/03/2018 5:29 PM [facility]) Only the most recent of 2 results [...] by a registered nurse. The physician intraservice ultk-km-deql time with the patient was 12 minutes. [...] IMPRESSION: A 23 cm in cuff-to-tip length [employer] tunneled hemodialysis catheter was placed via a small, tortuous, unnamed collateral vein within the right neck using image guidance and without incident as described above.The catheter is ready for routine use. 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 Thank you for allowing us to participate in the care of your patient. [facility]-[id number] Procedure Note Hm Interface, Radiology Results Incoming - 12/03/2018 5:59 PM [facility] Examination: IR TUNNELED DIALYSIS CATHETER PLACEMENT Clinical history: "Infilterated AVF. Needs HD rest. Need for access." Comparison: 09/02/2018 Anesthesia: Lidocaine solution was injected into the involved tissues. Conscious sedation: After the risks and benefits of conscious sedation were discussed, midazolam and fentanyl were administered intravenously. Throughout the conscious sedation duration, the patient was continuously monitored by a registered nurse. The physician intraservice leoy-zs-ovgq time with the patient was 12 minutes. [...] IMPRESSION: A 23 cm in cuff-to-tip length [employer] 3 day [employer] tunneled hemodialysis catheter was placed via a small, tortuous, unnamed collateral vein within the right neck using image guidance and without incident as described above. The catheter is ready for routine use. 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 Thank you for allowing us to participate in the care of your patient. [facility]-[id number] Performing Organization Address City/State/Zipcode Phone Number [facility] [address] [place] [address] * Hemoglobin A1c (12/03/2018 5:30 AM [facility]) Only the most recent of 4 results within the time period is included. Hemoglobin A1C 10.6 (H) 4.0 - 5.6 % [facility] Comment: HOSPITAL HbA1c cutoffs for diagnosing diabetes: 4.0% - 5.6%=normal 5.7% - 6.4%=increased risk for diabetes (prediabetes) >=6.5%=diabetes Goals for glycemic control (ADA 2016) < 7.0%Target for non adults with diabetes. More or less stringent targets may be appropriate for individual patients. <7.5% Target for Children and adolescents with type 1 diabetes. Specimen Blood Performing Organization Address City/[facility]/Zipcode Phone Number [facility] DEPARTMENT OF [address] [place] [address] PATHOLOGY AND GENOMIC MEDICINE [address] * Manual differential (12/02/2018 8:38 PM [facility]) Manual differential PERFORMED [facility] Neutrophils 85.0 (H) 39.0 - 69.0 % [facility] Lymphocytes 7.0 (L) 25.0 - 45.0 % [facility] [facility] Monocytes 6.0 0.0 - 10.0 % [facility] Eosinophils 1.0 0.0 - 5.0 % [facility] Basophils 1.0 0.0 - 1.0 % [facility] Metamyelocytes 0 % [facility] Promyelocytes 0 % [facility] Platelet slide review Mason adequate [facility] Anisocytosis Moderate [facility] Polychromasia Moderate [facility] Ovalocytes Moderate [facility] Performing Organization Address City/State/Zipcode Phone Number [facility] DEPARTMENT OF [address] [place] [address] PATHOLOGY AND GENOMIC MEDICINE [id number] [place] [address] * US Thyroid (11/19/2018 1:47 PM [facility] CH[facility] SORTER) Narrative Performed At EXAMINATION:US THYROID [facility]ICAL [...] echogenicity cannot be determined SHAPE (choose 1): *Ovhxll-raqq-hmmz: Should be assessed on a transverse image [...] participate in the care of your patient. [id number] Procedure Note Hm Interface, Radiology Results Incoming - 11/19/2018 1:58 PM [facility] EXAMINATION: US THYROID CLINICAL HISTORY: E04.1 Nontoxic [...] cannot be determined SHAPE (choose 1): * Kcjorg-dmmp-lgrv: Should be assessed on a transverse image [...] participate in the care of your patient. [id number] Performing Organization Address City/[facility] Phone Number [facility] [address] [place] [address] * Thyroperoxidase antibody (10/17/2018 10:59 AM POTATO CHIP SORTER) Thyroperoxidase Ab 12 0 - 34 IU/mL [facility] Specimen Blood Narrative Performed At Performed at: [id number] Quality Assurance Tech: Barry Brannon MD, Phone:[phone] Performing Organization Address [facility] Phone Number [facility] * Thyroid stimulating hormone (10/17/2018 10:59 AM [facility] CHIP SORTER) Only the most recent of 4 results within the time period is included. TSH 4.440 0.450 - 4.500 uIU/mL [facility] Specimen Blood Narrative Performed At Performed at: [facility] [address] [place], [place] [id number] Quality Assurance Tech: Barry Brannon MD, Phone:[phone] Performing Organization Address [facility] Phone Number [facility] * T4, free (10/17/2018 10:59 AM P[facility]AT[facility] CHIP SORTER) Only the most recent of 3 results within the time period is included. T4, free 1.30 0.82 - 1.77 ng/dL [facility] Specimen Blood Narrative Performed At Performed at: [facility] [address] [place], [place] [id number] Quality Assurance Tech: Barry Brannon MD, Phone:[phone] Performing Organization Address [facility] Phone Number [facility] * [place] lambda free light chain with ratio (08/31/2018 9:43 AM CDT) [place] light chain 161.65 (H) 3.30 - 19.40 mg/L [facility] DEPARTMENT OF PATHOLOGY AND GENOMIC MEDICINE Lambda light chain 73.31 (H) 5.70 - 26.30 mg/L [facility] DEPARTMENT OF PATHOLOGY AND GENOMIC MEDICINE [place] lambda ratio 2.21 (H) 0.26 - 1.65 [facility] DEPARTMENT OF PATHOLOGY AND GENOMIC MEDICINE Specimen Plasma specimen Performing Organization Address [facility] Phone Number [address] [address] PATHOLOGY AND GENOMIC MEDICINE * HIV Ag/Ab combination (08/31/2018 4:00 AM CDT) HIV Ag/Ab combination Non-reactive Non-reactive [facility] DEPARTMENT OF PATHOLOGY AND GENOMIC MEDICINE Specimen Blood Performing Organization Address [facility] Phone Number [facility] OF [address] [place] [address] PATHOLOGY AND GENOMIC MEDICINE * Serum electrophoresis (08/31/2018 4:00 AM CDT) Protein 7.5 6.3 - 8.3 g/dL [facility] DEPARTMENT OF Comment: PATHOLOGY AND GENOMIC MEDICINE 4.6-7.0 g/dL 1 week 4.4-7.6 g/dL 7 months-1year 5.1-7.3 g/dL 1-2 years5.6-7 .5 g/dL >3 years6.0-8 .0 g/dL 18-150 6.3-8.3 g/dL SPE albumin 3.87 (L) 4.00 - 5.30 g/dL [facility] DEPARTMENT OF PATHOLOGY AND GENOMIC MEDICINE SPE alpha 1 0.19 0.10 - 0.25 g/dL [facility] DEPARTMENT OF PATHOLOGY AND GENOMIC MEDICINE SPE alpha 2 0.91 (H) 0.58 - 0.84 g/dL [facility] DEPARTMENT OF PATHOLOGY AND GENOMIC MEDICINE SPE beta 0.89 0.50 - 1.10 g/dL [facility] DEPARTMENT OF PATHOLOGY AND GENOMIC MEDICINE SPE gamma 1.64 (H) 0.60 - 1.30 g/dL [facility] DEPARTMENT OF PATHOLOGY AND GENOMIC MEDICINE SPE extended See Comment [facility] DEPARTMENT OF interpretation Comment: PATHOLOGY AND Albumin is decreased while GENOMIC MEDICINE there is diffuse (polyclonal) increase in gamma globulins indicating a chronic disease pattern. Increased alpha-2 globulins may be due to increased haptoglobin in an acute phase response or increased alpha-2 macroglobulin in diabetes mellitus. Beta-gamma bridging suggests an increase in IgA and a hepatic etiology. 646 SPE interpretation See CommentComment: [facility] DEPARTMENT OF Starr SALDAÑA, MPH; Delphine Spencer PhD; PATHOLOGY AND Zoya Espino MD GENOMIC MEDICINE Specimen Serum Performing Organization Address City/[facility]/Zipcode Phone Number [facility] [place] [address] PATHOLOGY AND GENOMIC MEDICINE * Folate level (08/31/2018 4:00 AM CDT) Folate 7.4 4.8 - 24.2 ng/mL [facility] DEPARTMENT OF PATHOLOGY AND GENOMIC MEDICINE Specimen Serum Performing Organization Address [facility] [place] [address] PATHOLOGY AND GENOMIC MEDICINE * Vitamin B12 level (08/31/2018 4:00 AM CDT) Vitamin B12 527 211 - 946 pg/mL [facility] DEPARTMENT OF Comment: PATHOLOGY AND Significant overlap exists GENOMIC MEDICINE between normal and deficiency states. However, most patients with deficiencies will have Serum B12 <200 pg/mL. Specimen Serum Performing Organization Address [facility] [place] [address] PATHOLOGY AND GENOMIC MEDICINE * Echocardiogram complete w contrast and 3D if needed (08/30/2018 11:15 AM CDT) Narrative Performed At [facility] Echocardiography Report [address] [place] [address] Pat.Name:CHRISTY FRANK [facility].ID:[id number] .Date: 08/30/2018Refer.MD:BINDU FIORE MD Exam Time: 10:23:00 AM Study Type:Routine Echo Height:66inWeight:269lb BSA: 2.27 m2 DOBAge:1955,63Y Sex: FEMALEBP:133/63 HR:83 bpmSonogrphr: DANIELLA Patrick Pat. Stat.:Inpatient Room:[facility] Study Status:Final Echo Event ID:[id number] Order ID:[id number] Reason for Study:SOB, suspected cardiac etiology, Fluid [...] of 5-10 mmHg. MEASUREMENTS: 2D Parasternal [place] LVOT 1.7 cmLA Ds3.2 cm LVIDd3.7 cmIndex1.7 cm/m Ao An2.3 cm LVIDs2 cmAo Rtd 3 cm Index1.3 cm/m LV%fs 46 % LV Dncb658 g(87-129) IVSd 1 cmLVM Index 49.3 g/m2 LVPWd0.9 cmRWT0.5 LA Sng Plane LA Area 24.7 cm2(8.8-23.4) LA Vol78.2 ml Index34.5 ml/m LA LngAx 6.4 cm Signed 08/30/2018 03:40 PM Davon Naqvi MD Procedure Note Interface, Radiology Results In - 08/30/2018 3:45 PM CDT Echocardiography Report [address] [place] [address] Pat.Name: CHRISTY FRANK Pat.ID: [id number] .Date: 08/30/2018 Refer.MD: BINDU FIORE MD Exam Time: 10:23:00 AM Study Type:Routine Echo Height: 66in Weight: 269lb BSA: 2.27 m2 Age: 9 1955,63Y Sex: FEMALE BP: 133/63 HR: 83 bpm Sonogrphr: DANIELLA Patrick Pat. Stat.:Inpatient Room: [facility] Study Status:Final Echo Event ID:[id number] Order ID: [id number] Reason for Study:SOB, suspected cardiac etiology, Fluid [...] of 5-10 mmHg. MEASUREMENTS: 2D Parasternal [place] LVOT 1.7 cm LA Ds 3.2 cm [...] Performing Organization Address City/State/Zipcode Phone Number [facility] [address] [place] [address] * Lipid panel (08/29/2018 4:45 PM CDT) Cholesterol 173 <200 mg/dL [facility] DEPARTMENT OF PATHOLOGY AND GENOMIC MEDICINE Triglycerides 243 (H) <150 mg/dL [facility] DEPARTMENT OF PATHOLOGY AND GENOMIC MEDICINE HDL cholesterol 43 >40 mg/dL [facility] DEPARTMENT OF PATHOLOGY AND GENOMIC MEDICINE LDL cholesterol 99Comment: Result obtained by <100 mg/dL [facility] DEPARTMENT OF direct LDL measurement PATHOLOGY AND GENOMIC MEDICINE [facility] interpretation Comment: PATHOLOGY AND Total [...] mg/dL) Specimen Plasma specimen Narrative Performed At [facility] results called to and read back by GALINA WALL/LATISHA(name/location) [facility] DEPARTMENT OF at118:14(date/time) by AB2. PATHOLOGY AND GENOMIC MEDICINE Performing Organization Address City/State/Zipcode Phone Number [facility] DEPARTMENT OF [address] [place] [address] PATHOLOGY AND GENOMIC MEDICINE * TDC Removal [...] (04/14/2018 9:23 AM CDT) Narrative Performed At [facility] Echocardiography Report [address]Name:CHRISTY FRANK.ID:[id number] .Date: 04/14/2018 Refer.MD:KERRI BLEVINS MD Exam Time: 8:34:00 AMStudy Type:Routine Echo Height:66inWeight:267lb BSA: 2.26 m2 DOBAge:1955,62Y Sex: FEMALEBP:138/63 HR:79 bpmSonogrphr: DANIELLA Horner Pat. Stat.:Inpatient Room:[facility] Study Status:Final Echo Event ID:[id number] Order ID:[id number] Reason for Study:[place] Valvular Regurgitation - Routine surveillance (<1 y) [...] RAPof 5 mmHg. MEASUREMENTS: 2D Parasternal [place] LVOT 2 cmLA Ds3.4 cm LVIDd3.6 cmIndex1.6 cm/m Ao Rtd 2.9 cm Index1.3 cm/m LVIDs2.3 cmLV Zaek138.6 g(87-129) LV%fs 36.5 % LVM Index 54.7 g/m2 IVSd 1.2 cmRWT0.5 LVPWd1 cm LA Sng Plane LA Area 21.5 cm2(8.8-23.4) LA Vol68.8 ml Index30.5 ml/m LA LngAx 5.6 cm Signed 04/14/2018 01:11 PM Lelia Up M.D. Procedure Note Interface, Radiology Results In - 04/14/2018 1:11 PM CDT Echocardiography Report [address] [address], [place] [address] [facility].Name: CHRISTY FRANK Ami.ID: [id number] .Date: 04/14/2018 Refer.MD: KERRI BLEVINS MD Exam Time: 8:34:00 AM Study Type:Routine Echo Height: 66in Weight: 267lb BSA: 2.26 m2 Age: 9 1955,62Y Sex: FEMALE BP: 138/63 HR: 79 bpm Sonogrphr: DANIELLA Horner Pat. Stat.:Inpatient Room: [facility] Study Status:Final Echo Event ID:[id number] Order ID: [id number] Reason for Study:[place] Valvular Regurgitation - Routine surveillance (<1 y) [...] of 5 mmHg. MEASUREMENTS: 2D Parasternal [place] LVOT 2 cm LA Ds 3.4 cm [...] PM Lelia Up M.D. Performing Organization Address City/[facility] Phone Number [facility] [address] [place] [address] * Estimated GFR (04/14/2018 5:07 AM CDT) Only the most recent of 3 results within the time period is included. GFR Non Af Amer 28 (A) mL/min/1.73 m2 [facility] DEPARTMENT OF PATHOLOGY AND GENOMIC MEDICINE GFR Af Amer 34 (A) mL/min/1.73 m2 [facility] DEPARTMENT OF Comment: PATHOLOGY AND Chronic kidney [...] Americans. Specimen Plasma specimen Performing Organization Address City/[facility]/Zipcode Phone Number [facility] DEPARTMENT OF [address] [place] [address] PATHOLOGY AND GENOMIC MEDICINE * XR Chest [...] normal limits. [facility] [place] [id number] Procedure Note Hm Interface, Radiology Results Incoming [...] size and pulmonary vascularity within normal limits. [facility]-[id number] Performing Organization Address [facility] Phone Number [facility] [address] [place] [address] * Iron level (04/13/2018 10:14 AM CDT) Iron level 50 37 - 145 ug/dL [facility] DEPARTMENT OF PATHOLOGY AND GENOMIC MEDICINE Specimen Plasma specimen Performing Organization Address [facility] [place] [address] PATHOLOGY AND [facility] MEDICINE * C-reactive protein (04/13/2018 12:36 AM CDT) CRP 1.03 (H) 0.00 - 0.50 mg/dL [facility] DEPARTMENT OF PATHOLOGY AND GENOMIC MEDICINE Specimen Plasma specimen Performing Organization Address [facility] [place] [address] PATHOLOGY AND [facility] MEDICINE * Sedimentation rate (04/13/2018 12:20 AM CDT) Sedimentation rate 85 (H) 0 - 20 mm/hr [facility] DEPARTMENT OF PATHOLOGY AND GENOMIC MEDICINE Specimen Blood Performing Organization Address [facility] [place] [address] PATHOLOGY AND [facility] MEDICINE * CRITICAL CARE (04/12/2018 3:52 PM [...] CDT) Lipase 22 13 - 60 U/L [facility] DEPARTMENT OF PATHOLOGY AND GENOMIC MEDICINE Specimen Plasma specimen Performing Organization Address City/[facility] Phone Number [facility] [place] [address] PATHOLOGY AND GENOMIC MEDICINE * Lactic acid level (04/12/2018 3:38 PM CDT) Lactic acid 1.2 0.5 - 2.2 mmol/L [facility] DEPARTMENT OF PATHOLOGY AND GENOMIC MEDICINE Specimen Plasma specimen Performing Organization Address City/[facility] Phone Number [facility] DEPARTMENT [address] [address] PATHOLOGY AND GENOMIC MEDICINE after 03/22/2018 Insurance Payer Benefit Subscriber ID Type Phone Address Plan / Group [employer] MEDICARE AARP xxxxxxxxx HMO MEDICARE COMPLETE [facility] Advance Directives Patient has advance care planning documents, and code status on file. For more i nformation, please contact: Ki Terry [address] [place] [address] Date Inactivated Comments Code Status Date Activated 12/08/2018 12:08 AM Full Code 12/02/2018 11:52 PM Code Status decision reached by: Patient 12/30/2017 12:05 AM Full Code 12/20/2017 11:13 AM Code Status decision reached by: Patient 12/04/2017 8:43 PM Full Code 12/01/2017 8:03 PM Code Status decision reached by: Patient
--- OUTSIDE RECORDS SUMMARY | 2019-03-23 18:34 | XMS REPORT | Continuity of Care Document ---
Author Author [facility] Organization Interface Address Unknown Phone Unavailable Problems Problem Status Onset Date Classification Date Reported Comments Source Other chest pain 07/28/2018 02/04/2019 [facility] CHEST PAIN Active 07/17/2018 [facility] CHEST PAIN, ESRD Active 07/17/2018 [facility] WEAKNESS Active 04/27/2018 [facility] HYPERGLYCEMIA Active 11/19/2017 [facility] AMS, UTI Active 11/19/2017 [facility] Discharge Diagnosis: Right leg swelling 08/14/2017 08/17/2017 [facility] SEVERE SWELLING/FAA Active 08/13/2017 [facility] -SOB Active 07/28/2017 [facility] FLUID OVERLOAD, CHF Active 07/28/2017 [facility] Discharge Diagnosis: Blurred vision, bilateral 07/09/2017 07/12/2017 [facility] Discharge Diagnosis: Generalized weakness 07/09/2017 07/12/2017 [facility] BLURRY VISION/ HEADACHE Active 07/08/2017 [facility] Discharge Diagnosis: Fall 06/22/2017 06/25/2017 [facility] FALL WITH HIP Active 06/21/2017 [facility] ARM NUMBNESS Active 05/25/2017 [facility] Discharge Diagnosis: Edema 05/19/2017 05/22/2017 [facility] SOB Active 05/19/2017 [facility] NEUROPATHY Active 02/27/2017 [facility] [place] ABD PAIN Active 02/10/2017 [facility] COMPLICATED UTI Active 02/10/2017 [facility] Discharge Diagnosis: Head injury 01/16/2017 01/19/2017 [facility] FALL Active 01/15/2017 [facility] Discharge Diagnosis: Acute left flank pain 01/01/2017 01/04/2017 [facility] FLANK PAIN Active 12/31/2016 [facility] ACUTE PYELONEPHRITIS, RENOVASCULAR HYPER Active 12/07/2016 [facility] VRE CARRIER, BACTERIAL URINARY TRACT INF Active 11/11/2016 [facility] ABDOMINAL PAIN Active 11/11/2016 [facility] Discharge Diagnosis: Urinary tract infection, site not specified 10/01/2016 10/20/2016 [facility] PYELO, UNABLE TO TOLERATE PO Active 10/01/2016 [facility] KIDNEY PAIN Active 10/01/2016 [facility] E04.2 - NONTOXIC MULTINODULAR GOITER Active 06/12/2016 [facility] URINARY PAIN Active 05/01/2016 [facility] INTRACTABLE ABDOMINAL PAIN Active 02/14/2016 [facility] SIDE PAIN OR INJURY Active 02/14/2016 [facility] I73.9 Active 01/31/2016 [facility] Discharge Diagnosis: Abscess 09/22/2015 09/25/2015 [facility] ABSCESS Active 09/21/2015 [facility] Discharge Diagnosis: Accidental fall 08/09/2015 08/12/2015 [facility] Discharge Diagnosis: Multiple contusions 06/06/2015 06/09/2015 [facility] Discharge Diagnosis: Fall from standing 06/06/2015 06/09/2015 [facility] FELL Active 06/05/2015 [facility] Discharge Diagnosis: UTI 05/28/2015 05/31/2015 [facility] Discharge Diagnosis: Abscess 05/28/2015 05/31/2015 [facility] INSECT BITE Active 05/28/2015 [facility] Discharge Diagnosis: Abdominal wall abscess 04/27/2015 04/30/2015 [facility] Discharge Diagnosis: Acute Hyperglycemia 04/27/2015 04/30/2015 [facility] MRSA<sup>2, 3</sup> Active 04/27/2015 Problem 06/09/2015 Problem added by Discern Expert. [facility] MRSA<sup>3, 4</sup> Active 04/27/2015 Problem 02/04/2019 Problem added by Discern Expert. [facility] [place], [facility] [place] INFECTION Active 04/26/2015 [facility] 611.72 - LUMP OR MASS IN Active 02/06/2015 [facility] Discharge Diagnosis: Toe sprain 01/14/2015 01/17/2015 [facility] RT TOE INJURY Active 01/13/2015 [facility] Discharge Diagnosis: Abdominal pain, acute 11/16/2014 11/19/2014 [facility] Discharge Diagnosis: Sprain of cervical neck 11/16/2014 11/19/2014 [facility] Discharge Diagnosis: Distal radial fracture 11/16/2014 11/19/2014 [facility] UTI/VRE Active 10/28/2014 [facility] COMPLICATED UTI, PERSISTENT ABDOMINAL PA Active 10/20/2014 [facility] VRE<sup>6, 7</sup> Active 10/20/2014 Problem 05/03/2018 Problem added by Discern Expert. [facility] VRE<sup>6, 7</sup> Active 10/20/2014 Problem 02/04/2019 Problem added by Discern Expert. [facility] UPPER GI BLEED Active 10/05/2014 [facility] VOMOTING Active 10/05/2014 [facility] Discharge Diagnosis: Acute foot pain 08/11/2014 08/14/2014 [facility] Discharge Diagnosis: Acute chest wall pain 08/11/2014 08/14/2014 [facility] Discharge Diagnosis: Acute knee pain 08/11/2014 08/14/2014 [facility] 955.9 - INJ NERVE SHLDR 719.41 - JOINT P Active 07/13/2014 [facility] Injury of ulnar nerve<sup>2</sup> Active 07/08/2014 Problem 02/04/2019 Data migrated from clipkit on 07/11/15. [facility] Spasm<sup>5</sup> Active 07/08/2014 Problem 02/04/2019 Data migrated from clipkit on 07/11/15. [facility] Discharge Diagnosis: Thigh abscess 06/10/2014 06/13/2014 [facility] ABSCESSES Active 06/09/2014 [facility] Discharge Diagnosis: Hyperglycemia 04/01/2014 04/04/2014 [facility] ARM PAIN/INJURY Active 04/01/2014 [facility] Discharge Diagnosis: Diabetes 02/04/2014 02/06/2014 [facility] Discharge Diagnosis: Sprain and strain of shoulder and upper arm 02/04/2014 02/06/2014 [facility] Discharge Diagnosis: Cervical radiculopathy 02/04/2014 02/06/2014 [facility] CHEST PAIN, ARM PAIN Active 02/03/2014 [facility] V76.12 - SCREEN MAMMOGRA Active 10/07/2013 [facility] FALL / SWOLLEN KNEE Active 05/20/2013 [facility] LOWER BACK PAIN Active 12/24/2012 [facility] Syncope Active 05/11/2009 Problem 08/06/2012 [facility], [facility] Syncope Resolved 05/11/2009 Problem 05/22/2013 [facility], [facility] Syncope Resolved 05/11/2009 Problem 02/04/2019 [facility] [place], [facility] Hyperglycemia Active Problem 08/06/2012 [facility], [facility] Degenerative disc disease Resolved Problem 05/22/2013 [facility] DM - Diabetes mellitus Active Problem 05/22/2013 [facility] HTN - Hypertension Active Problem 05/22/2013 [facility] Hyperglycemia Active Problem 05/22/2013 [facility] Thyroid disorder Resolved Problem 05/22/2013 [facility] UTI - Urinary tract infection Active Problem 05/22/2013 [facility] VRE<sup>4</sup> Active Problem 06/09/2015 Problem added by Discern Expert. [facility] VRE<sup>2</sup> Active Problem 04/30/2015 2Problem added by Discern Expert. [facility] VRE<sup>6</sup> Active Problem 08/03/2017 Problem added by Discern Expert. [facility] Catheterization<sup>1</sup> Resolved Problem 02/04/2019 heart [facility] Degenerative disc disease Resolved Problem 02/04/2019 [facility], [facility] DM - Diabetes mellitus Active Problem 02/04/2019 [facility], [facility] Gastroesophageal reflux disease Active Problem 02/04/2019 [facility], [facility] GERD (<span ID="[id number]">Confirmed</span>) Active Problem 02/04/2019 [facility], [facility] GI bleed Active Problem 02/04/2019 [facility], [facility] HTN - Hypertension Active Problem 02/04/2019 [facility] [place], [facility] Hyperglycemia Active Problem 02/04/2019 [facility], [facility] Overactive bladder Resolved Problem 02/04/2019 [facility] [place], [facility] Thyroid disorder Resolved Problem 02/04/2019 [facility], [facility] UTI - Urinary tract infection Active Problem 02/04/2019 [facility] [place], [facility] VRE Active Problem 02/04/2019 [facility], [facility] CHF (<span ID="[id number]">Confirmed</span>) Active Problem 05/03/2018 [facility] Dyspnea, unspecified 02/04/2019 [facility] Hypertensive heart and chronic kidney disease with heart failure and with stage 5 chronic kidney disease, or end stage renal disease 02/04/2019 [facility] Chronic diastolic heart failure 02/04/2019 [facility] End stage renal disease 02/04/2019 [facility] Type 2 diabetes mellitus with diabetic chronic kidney disease 02/04/2019 [facility] Type 2 diabetes mellitus with hyperglycemia 02/04/2019 [facility] Gastro-esophageal reflux disease without esophagitis 02/04/2019 [facility] Anemia in chronic kidney disease 02/04/2019 [facility] Other hypotension 02/04/2019 [facility] Dependence on renal dialysis 02/04/2019 [facility] FCI use of insulin 02/04/2019 [facility] CHF (<span ID="[id number]">Confirmed</span>) Active Problem 02/04/2019 [facility] Type 2 diabetes mellitus without complication, unspecified senior living insulin use status Active Problem 08/16/2017 Enayet Rahim Vaginal yeast infection Active Diagnosis 06/20/2017 Enayet Rahim Essential hypertension Active Problem 08/16/2017 Enayet Rahim FCI current use of insulin Active Problem 08/16/2017 Enayet Rahim Anxiety disorder, unspecified Active Problem 08/16/2017 Enayet Rahim Type 2 diabetes mellitus without complications Active Problem 08/16/2017 Enayet Rahim Neuropathy Active Problem 08/16/2017 Enayet Rahim Major depressive disorder, single episode, unspecified Active Problem 08/16/2017 Enayet Rahim Dizziness and giddiness Active Diagnosis 05/21/2017 Enayet Rahim Acute nonintractable headache, unspecified headache type Active Diagnosis 05/21/2017 Enayet Rahim Leg edema Active Diagnosis 05/21/2017 Enayet Rahim Recurrent UTI Active Diagnosis 02/23/2017 Paulo Harden Acute on chronic systolic congestive heart failure Active Diagnosis 08/02/2017 Paulo Harden SOB Active Diagnosis 08/02/2017 Paulo Harden Fall, subsequent encounter Active Diagnosis 01/02/2017 Paulo Harden Preoperative clearance Active Diagnosis 12/04/2016 Paulo Harden GASTROINTEST HEMORR NOS Active [facility] URIN TRACT INFECTION NOS Active [facility] PAIN-ANKLE / FRACTURE OF RADIUS AND ULNA Active [facility] [place] PERIPHERAL VASCULAR DISEASE, UNSPECIFIED Active [facility] LOWER ABDOMINAL PAIN, UNSPECIFIED Active [facility] RENAL TUBULO-INTERSTITIAL DISEASE, UNSPE Active [facility] CARRIER OF OTHER SPECIFIED BACTERIAL DIS Active [facility] URINARY TRACT INFECTION, SITE NOT SPECIF Active [facility] ACUTE PYELONEPHRITIS Active [facility] RENOVASCULAR HYPERTENSION Active [facility] FLUID OVERLOAD, UNSPECIFIED Active [facility] HEART FAILURE, UNSPECIFIED Active [facility] ANESTHESIA OF SKIN Active [facility] ALTERED MENTAL STATUS, UNSPECIFIED Active [facility] CHEST PAIN, UNSPECIFIED Active [facility] END STAGE RENAL DISEASE Active [facility] Medications Medication Details Route Status Patient Instructions Ordering Provider Order Date Source Insulin Glargine 100 UNT/ML Injectable Solution [Lantus] 20 unit, 0.2 mL, Route: SUB-Q, Drug form: SOLN, ONCE, Dosing Weight 120.455, kg, Start date: 07/18/18 9:43:00 CDT, Stop date: 07/18/18 9:43:00 CDTNotes: (Same as: Lantus) Do not hold insulin without contacting prescriber WASTE: F/P - Black; E - [facility] "single patient use only" Inactive 07/18/2018 Tamia Levemir 15 unit, Route: SUB-Q, BID, Dosing Weight 120.455, kg, Start date: 07/18/18 9:00:00 CDT, Duration: 30 day, Stop date: 08/16/18 17:00:00 CDT No Longer Active 07/18/2018 [place] Aspirin 81 mg, 1 tab, Route: PO, Drug form: ECTAB, Daily, Dosing Weight 120.455, kg, Start date: 07/18/18 9:00:00 CDT, Duration: 30 day, Stop date: 08/16/18 9:00:00 CDTNotes: Do not crush or chew. (Same As: Ecotrin) Inactive 07/18/2018 [facility] insulin glargine 15 unit, 0.15 mL, Route: SUB-Q, Drug form: SOLN, BID, Start date: 07/17/18 23:20:00 CDT, Duration: 30 day, Stop date: 08/16/18 17:00:00 CDTNotes: (Same as: Lantus) Do not hold insulin without contacting prescriber WASTE: F/P - Black; E - [facility] "single patient use only" No Longer Active 07/18/2018 [facility] atorvastatin 20 mg, 2 tab, Route: PO, Drug form: TAB, Bedtime, Dosing Weight 120.455, kg, Start date: 07/17/18 21:00:00 CDT, Duration: 30 day, Stop date: 08/15/18 21:00:00 CDTNotes: (Same As: Lipitor) No Longer Active 07/18/2018 [facility] heparin 5,000 unit, 1 mL, Route: SUB-Q, Drug form: INJ, Q12H, Dosing Weight 120.455, kg, Start date: 07/17/18 21:00:00 CDT, Stop date: 08/16/18 9:00:00 CDTNotes: porcine heparin No Longer Active 07/18/2018 [facility] Insulin Lispro 3 unit, 0.03 mL, Route: SUB-Q, Drug form: SOLN, Bedtime, Dosing Weight 120.455, kg, PRN Blood Glucose Results, Start date: 07/17/18 20:46:00 CDT, Duration: 30 day, Stop date: 08/16/18 20:45:00 CDTNotes: (Same as: Humalog ) Roll in palms of hands gently; Do not shake `vigorously. "Single Patient Use Only " WASTE: F/P - Black; E - [facility] Stable for 28 days at room temperature. Expires in days from Date No Longer Active 07/18/2018 [facility] Glucagon 1 mg, Route: IM, Drug form: PDR/INJ, PRN, Dosing Weight 120.455, kg, PRN Blood Glucose Results, Start date: 07/17/18 20:46:00 CDT, Duration: 30 day, Stop date: 08/16/18 20:45:00 CDT No Longer Active 07/18/2018 [facility] Dextrose 50% Syringe 25 gm, 50 mL, Route: IVP, Drug Form: INJ, Dosing Weight 120.455, kg, PRN, PRN Blood Glucose Results, Start date: 07/17/18 20:46:00 CDT, Duration: 30 day, Stop date: 08/16/18 20:45:00 CDT No Longer Active 07/18/2018 [facility] Insulin Lispro See Instructions, 15 units above 300 and 8-14 units if its below SUB-Q, 0 Refill(s) Active 07/18/2018 [facility] Insulin Glargine 100 UNT/ML Injectable Solution [Lantus] See Instructions, 35 units BID SUB-Q, 0 Refill(s) Active 07/18/2018 [facility] Morphine 2 mg, Route: IVP, ONCE, Dosing Weight 120.455, kg, Priority: STAT, Start date: 07/17/18 11:38:00 CDT, Stop date: 07/17/18 11:38:00 CDT Inactive 07/17/2018 [facility] Aspirin 324 mg, Route: PO, ONCE, Dosing Weight 120.455, kg, Priority: STAT, Start date: 07/17/18 11:38:00 CDT, Stop date: 07/17/18 11:38:00 CDT Inactive 07/17/2018 [facility] Saline Flush 0.9% 10 mL, Route: IVP, Drug Form: INJ, Dosing Weight 120.455, kg, PRN, PRN Line Flush, Start date: 07/17/18 11:38:00 CDT, Duration: 30 day, Stop date: 08/16/18 11:37:00 CDTNotes: (Same as: BD Posiflush) No Longer Active 07/17/2018 [facility] atorvastatin 40 mg oral tablet 40 mg=1 tab, PO, Bedtime, 0 Refill(s) Active 04/30/2018 [facility] Docusate Sodium 100 MG Oral Capsule 100 mg=1 cap, PO, BID, 0 Refill(s) Active 04/30/2018 [facility] pantoprazole 40 mg oral enteric coated tablet 40 mg=1 tab, PO, Before Breakfast, 0 Refill(s) Active 04/30/2018 [facility] Nitroglycerin 0.4 mg, 1 tab, Route: SL, Drug form: TAB, Q5Min, Dosing Weight 119.545, kg, PRN Chest Pain, Start date: 04/29/18 14:37:00 CDT, Duration: 3 doses or times, Stop date: Limited # of timesNotes: (Same as :Nitroquick, Nitrostat) "Do Not Crush" Sublingual tablet No Longer Active 04/29/2018 [facility] Acetaminophen 325 MG / Hydrocodone Bitartrate 5 MG Oral Tablet [Jenkins 5/325] 1 tab, Route: PO, Drug Form: TAB, Dosing Weight 119.545, kg, Q4H, PRN Pain Score 4-6, Start date: 04/29/18 14:00:00 CDT, Duration: 30 day, Stop date: 05/29/18 13:59:00 CDTNotes: (Same as: Jenkins 325/5) Do not exceed 4gm/day of acetaminophen. No Longer Active 04/29/2018 [facility] Protonix 40 mg, 1 tab, Route: PO, Drug form: ECTAB, Before Breakfast, Dosing Weight 119.545, kg, Start date: 04/29/18 10:30:00 CDT, Duration: 30 day, Stop date: 05/29/18 7:30:00 CDTNotes: Tablet should not be chewed or crushed. (Same as: Protonix) No Longer Active 04/29/2018 [facility] Acetaminophen 300 MG / Codeine Phosphate 30 MG Oral Tablet [Tylenol with Codeine #3] 1 tab, Route: PO, Drug Form: TAB, Dosing Weight 119.545, kg, Q4H, PRN Pain Score 1-3, Start date: 04/29/18 10:13:00 CDT, Duration: 30 day, Stop date: 05/29/18 10:12:00 CDTNotes: Do not exceed 4gm/day of acetaminophen. (Same as: Tylenol with Codeine # 3) No Longer Active 04/29/2018 [facility] Acetaminophen 325 MG / Hydrocodone Bitartrate 5 MG Oral Tablet [Jenkins 5/325] 1 tab, Route: PO, Drug Form: TAB, Dosing Weight 119.545, kg, ONCE, STAT, Start date: 04/29/18 10:05:00 CDT, Stop date: 04/29/18 10:05:00 CDTNotes: (Same as: Jenkins 325/5) Do not exceed 4gm/day of acetaminophen. Inactive 04/29/2018 [facility] Lipitor 40 mg, 1 tab, Route: PO, Drug form: TAB, Bedtime, Dosing Weight 119.545, kg, Start date: 04/28/18 21:00:00 CDT, Duration: 30 day, Stop date: 05/27/18 21:00:00 CDTNotes: (Same as: Lipitor) No Longer Active 04/29/2018 [facility] Insulin Lispro 4 unit, 0.04 mL, Route: SUB-Q, Drug form: SOLN, TID-Before Meals, Dosing Weight 119.545, kg, PRN Blood Glucose Results, Start date: 04/28/18 16:56:00 CDT, Duration: 30 day, Stop date: 05/28/18 16:55: 00 CDTNotes: (Same as: Humalog ) Roll in palms of hands gently; Do not shake `vigorously. "Single Patient Use Only " WASTE: F/P - Black; E - [facility] Stable for 28 days at room temperature. Expires in days from Date No Longer Active 04/28/2018 [facility] glucagon 1 mg, Route: IM, Drug form: PDR/INJ, PRN, Dosing Weight 119.545, kg, PRN Blood Glucose Results, Start date: 04/28/18 16:16:00 CDT, Duration: 30 day, Stop date: 05/28/18 16:15:00 CDT No Longer Active 04/28/2018 [facility] Dextrose 50% Syringe 25 gm, 50 mL, Route: IVP, Drug Form: INJ, Dosing Weight 119.545, kg, PRN, PRN Blood Glucose Results, Start date: 04/28/18 16:16:00 CDT, Duration: 30 day, Stop date: 05/28/18 16:15:00 CDT No Longer Active 04/28/2018 [facility] Insulin Lispro 5 unit, 0.05 mL, Route: SUB-Q, Drug form: SOLN, TID-Before Meals, Dosing Weight 119.545, kg, PRN Blood Glucose Results, Start date: 04/28/18 14:32:00 CDT, Duration: 30 day, Stop date: 05/28/18 14:31: 00 CDTNotes: (Same as: Humalog ) Roll in palms of hands gently; Do not shake `vigorously. "Single Patient Use Only " WASTE: F/P - Black; E - [facility] Stable for 28 days at room temperature. Expires in days from Date Inactive 04/28/2018 [facility] Dextrose 50% Syringe 12.5 gm, 25 mL, Route: IVP, Drug Form: INJ, Dosing Weight 119.545, kg, PRN, PRN Blood Glucose Results, Start date: 04/28/18 14:32:00 CDT, Duration: 30 day, Stop date: 05/28/18 14:31:00 CDT Inactive 04/28/2018 [facility] Glucagon 1 mg, Route: IM, Drug form: PDR/INJ, PRN, Dosing Weight 119.545, kg, PRN Blood Glucose Results, Start date: 04/28/18 14:32:00 CDT, Duration: 30 day, Stop date: 05/28/18 14:31:00 CDT Inactive 04/28/2018 [facility] Insulin Lispro 7 unit, 0.07 mL, Route: SUB-Q, Drug form: SOLN, TID-Before Meals, Dosing Weight 119.545, kg, Priority: STAT, Start date: 04/28/18 12:22:00 CDT, Duration: 30 day, Stop date: 05/28/18 11:30:00 CDTNotes: (Same as: Humalog ) Roll in palms of hands gently; Do not shake `vigorously. "Single Patient Use Only " WASTE: F/P - Black; E - [facility] Trash [facility] Stable for 28 days at room temperature. Expires in days from Date No Longer Active 04/28/2018 [facility] Flexeril 5 mg, 0.5 tab, Route: PO, Drug form: TAB, ONCE, Dosing Weight 119.545, kg, Priority: NOW, Start date: 04/28/18 11:43:00 CDT, Stop date: 04/28/18 11:43:00 CDTNotes: (Same As: Flexeril) Inactive 04/28/2018 [facility] Lisinopril 10 mg, 2 tab, Route: PO, Drug form: TAB, Daily, Dosing Weight 119.545, kg, Start date: 04/28/18 9:00:00 CDT, Stop date: 05/27/18 9:00:00 CDTNotes: (Same as: Prinivil, Zestril) No Longer Active 04/28/2018 [facility] Nephro-Erica Rx 1 tab, Route: PO, Drug Form: TAB, Dosing Weight 119.545, kg, Daily, Start date: 04/28/18 9:00:00 CDT, Duration: 30 day, Stop date: 05/27/18 9:00:00 CDTNotes: (Same as: Nephro-Erica Rx and Diatx) Give with food. No Longer Active 04/28/2018 [facility] Omnipaque 350 100 ml, Route: IV, Drug Form: SOLN, Dosing Weight 119.545, kg, ONCE, Start date: 04/28/18 8:46:00 CDT, Stop date: 04/28/18 8:46:00 CDTNotes: (same as:Omnipaque 350). WASTE: F/P - Black; E - [facility] Trash [facility] No Longer Active 04/28/2018 [facility] Insulin Glargine 100 UNT/ML Injectable Solution [Lantus] 35 unit, 0.35 mL, Route: SUB-Q, Drug form: SOLN, BID, Dosing Weight 119.545, kg, Start date: 04/27/18 21:00:00 CDT, Duration: 30 day, Stop date: 05/27/18 9:00:00 CDTNotes: (Same as: Lantus) Do not hold insulin without contacting prescriber WASTE: F/P - Black; E - [facility] Trash [facility] "single patient use only" No Longer Active 04/28/2018 [facility] Coreg 3.125 mg, 1 tab, Route: PO, Drug form: TAB, Q12H, Dosing Weight 119.545, kg, Start date: 04/27/18 21:00:00 CDT, Duration: 30 day, Stop date: 05/27/18 9:00:00 CDTNotes: Give with food. (Same As: Coreg) No Longer Active 04/28/2018 [facility] midodrine 10 mg oral tablet 10 mg=1 tab, PO, BID, PRN Low Blood Pressure, 0 Refill(s) Active 04/28/2018 [facility] Docusate 100 mg, 1 cap, Route: PO, Drug form: CAP, BID, Dosing Weight 119.545, kg, Start date: 04/27/18 17:00:00 CDT, Duration: 30 day, Stop date: 05/27/18 9:00:00 CDTNotes: (Same as: Colace) (Do Not Crush) No Longer Active 04/27/2018 [facility] heparin 5,000 unit, 1 mL, Route: SUB-Q, Drug form: INJ, Q8H, Dosing Weight 119.545, kg, Start date: 04/27/18 16:00:00 CDT, Stop date: 05/27/18 8:00:00 CDTNotes: porcine heparin No Longer Active 04/27/2018 [facility] Aspirin 81 mg, 1 tab, Route: PO, Drug form: ECTAB, Daily, Dosing Weight 119.545, kg, Start date: 04/27/18 14:00:00 CDT, Duration: 30 day, Stop date: 05/27/18 9:00:00 CDTNotes: Do not crush or chew. (Same As: Ecotrin) No Longer Active 04/27/2018 [facility] Ondansetron 4 mg, 1 tab, Route: PO, Drug form: TABDIS, Q6H, Dosing Weight 119.545, kg, PRN Nausea & Vomiting, Start date: 04/27/18 13:10:00 CDT, Duration: 30 day, Stop date: 05/27/18 13:09:00 CDTNotes: (Same as: Zofran ODT) No Longer Active 04/27/2018 [facility] Acetaminophen 650 mg, 2 tab, Route: PO, Drug form: TAB, Q4H, Dosing Weight 119.545, kg, PRN Pain 1-3/Temp > 100.4 F, Start date: 04/27/18 13:10:00 CDT, Duration: 30 day, Stop date: 05/27/18 13:09:00 CDTNotes: Do not exceed 4 gm/day. (Same as: Tylenol) No Longer Active 04/27/2018 [facility] Insulin Lispro 4 unit, 0.04 mL, Route: SUB-Q, Drug form: SOLN, Bedtime, Dosing Weight 119.545, kg, PRN Blood Glucose Results, Start date: 04/27/18 12:17:00 CDT, Duration: 30 day, Stop date: 05/27/18 12:16:00 CDTNotes: (Same as: Humalog ) Roll in palms of hands gently; Do not shake `vigorously. "Single Patient Use Only " WASTE: F/P - Black; E - Municipal Trash Bin Stable for 28 days at room temperature. Expires in days from Date No Longer Active 04/27/2018 [facility] Glucagon 1 mg, Route: IM, Drug form: PDR/INJ, PRN, Dosing Weight 119.545, kg, PRN Blood Glucose Results, Start date: 04/27/18 12:17:00 CDT, Duration: 30 day, Stop date: 05/27/18 12:16:00 CDT No Longer Active 04/27/2018 [facility] Dextrose 50% Syringe 25 gm, 50 mL, Route: IVP, Drug Form: INJ, Dosing Weight 119.545, kg, PRN, PRN Blood Glucose Results, Start date: 04/27/18 12:17:00 CDT, Duration: 30 day, Stop date: 05/27/18 12:16:00 CDT No Longer Active 04/27/2018 [facility] Reglan 10 mg, Route: IVP, Drug form: INJ, ONCE, Dosing Weight 119.545, kg, Priority: STAT, Start date: 04/27/18 10:15:00 CDT, Stop date: 04/27/18 10:15:00 CDT Inactive 04/27/2018 [facility] Morphine 2 mg, 1 mL, Route: IVP, Drug form: SOLN, ONCE, Dosing Weight 119.545, kg, Priority: STAT, Start date: 04/27/18 9:17:00 CDT, Stop date: 04/27/18 9:17:00 CDT Inactive 04/27/2018 [facility] Ondansetron 4 mg, 2 mL, Route: IVP, Drug form: INJ, ONCE, Dosing Weight 119.545, kg, Priority: STAT, Start date: 04/27/18 9:17:00 CDT, Stop date: 04/27/18 9:17:00 CDTNotes: (Same as: Marlinan) MEDICATION WASTE Product Size: 4 mg Product Wasted: ___ mg Inactive 04/27/2018 [facility] Saline Flush 0.9% 10 mL, Route: IVP, Drug Form: INJ, Dosing Weight 119.545, kg, PRN, PRN Line Flush, Start date: 04/27/18 9:17:00 CDT, Duration: 30 day, Stop date: 05/27/18 9:16:00 CDTNotes: (Same as: BD Posiflush) No Longer Active 04/27/2018 [facility] Cephalexin 500 MG Oral Capsule [Keflex] 500 mg=1 cap, PO, BID, X 10 day, # 20 cap, 0 Refill(s), Pharmacy: [facility] [id number] Active 11/22/2017 [facility] Paroxetine 20 mg, 2 tab, Route: PO, Drug form: TAB, Daily, Dosing Weight 131.227, kg, Start date: 11/21/17 22:48:00 [facility] INTERN, Duration: 30 day, Stop date: 12/21/17 9:00:00 CSTNotes: (Same as: Paxil) No Longer Active 11/22/2017 [facility] carvedilol 3.125 mg, 1 tab, Route: PO, Drug form: TAB, BID, Dosing Weight 131.227, kg, Start date: 11/21/17 21:00:00 [facility]ULAT[facility] AFFAIRS INTERN, Duration: 30 day, Stop date: 12/21/17 9:00:00 CSTNotes: Give with food. (Same As: Coreg) No Longer Active 11/22/2017 [facility] Pravastatin 20 mg, 1 tab, Route: PO, Drug form: TAB, Bedtime, Dosing Weight 131.227, kg, Start date: 11/21/17 21:00:00 [facility]ULAT[facility] AFFAIRS INTERN, Duration: 30 day, Stop date: 12/20/17 21:00:00 CSTNotes: (Same as: Pravachol) No Longer Active 11/22/2017 [facility] insulin glargine 35 unit, 0.35 mL, Route: SUB-Q, Drug form: SOLN, BID, Start date: 11/21/17 21:00:00 [facility]AT[facility] AFFAIRS INTERN, Duration: 30 day, Stop date: 12/21/17 9:00:00 CSTNotes: (Same as: Lantus) Do not hold insulin without contacting prescriber WASTE: F/P - Black; E - Municipal Trash Bin "single patient use only" No Longer Active 11/22/2017 [facility] insulin detemir Route: SUB-Q, Drug form: SOLN, BID, Dosing Weight 131.227, kg, Start date: 11/21/17 17:00:00 REGULATORY AFFAIRS INTERN, Duration: 30 day, Stop date: 12/21/17 9:00:00 REGULATORY AFFAIRS INTERN Inactive 11/21/2017 [facility] Furosemide 40 MG Oral Tablet [Lasix] 40 mg, 1 tab, Route: PO, Drug form: TAB, BID, Dosing Weight 131.227, kg, Start date: 11/21/17 17:00:00 REGULATORY AFFAIRS INTERN, Duration: 30 day, Stop date: 12/21/17 9:00:00 CSTNotes: (Same as: Lasix) May cause GI upset. Give with food or milk. No Longer Active 11/21/2017 [facility] Famotidine 20 MG Oral Tablet [Pepcid] 20 mg, 1 tab, Route: PO, Drug form: TAB, BID, Dosing Weight 131.227, kg, Start date: 11/21/17 17:00:00 REGULATORY AFFAIRS INTERN, Duration: 30 day, Stop date: 12/21/17 9:00:00 CSTNotes: (Same as: Pepcid) No Longer Active 11/21/2017 [facility] aspirin 81 mg tablet, enteric coated 81 mg, 1 tab, Route: PO, Drug form: ECTAB, Daily, Dosing Weight 131.227, kg, Start date: 11/21/17 13:00:00 REGULATORY AFFAIRS INTERN, Duration: 30 day, Stop date: 12/21/17 9:00:00 CSTNotes: Do not crush or chew. (Same As: Ecotrin) No Longer Active 11/21/2017 [facility] Lisinopril 10 mg, 2 tab, Route: PO, Drug form: TAB, Daily, Dosing Weight 131.227, kg, Start date: 11/21/17 13:00:00 REGULATORY AFFAIRS INTERN, Duration: 30 day, Stop date: 12/21/17 9:00:00 CSTNotes: (Same as: Prinivil, Zestril) No Longer Active 11/21/2017 [facility] Hyoscyamine 0.125 mg, 1 tab, Route: PO, Drug form: TAB, Q4H, Dosing Weight 131.227, kg, PRN Spasm, Start date: 11/21/17 11:50:00 REGULATORY AFFAIRS INTERN, Duration: 30 day, Stop date: 12/21/17 11:49:00 CSTNotes: (Same as: Levsin) Take 30 min before meal No Longer Active 11/21/2017 [facility] tramadol hydrochloride 50 MG Oral Tablet 50 mg, 1 tab, Route: PO, Drug form: TAB, Q12H, Dosing Weight 131.227, kg, PRN Pain Score 6-10, Start date: 11/21/17 11:50:00 REGULATORY AFFAIRS INTERN, Duration: 30 day, Stop date: 12/21/17 11:49:00 CSTNotes: Not to exceed 400mg/day. (Same As: Ultram) No Longer Active 11/21/2017 [facility] Lactulose 667 MG/ML Oral Solution 20 gm, 30 mL, Route: PO, Drug form: SYRP, Daily, Dosing Weight 131.227, kg, PRN Constipation, Start date: 11/21/17 11:50:00 REGULATORY AFFAIRS INTERN, Duration: 30 day, Stop date: 12/21/17 11:49:00 CSTNotes: (Same as:Chronulac) No Longer Active 11/21/2017 [facility] Hydralazine 10 mg, 0.5 mL, Route: IV, Drug form: INJ, ONCE, Dosing Weight 131.227, kg, Priority: STAT, Start date: 11/21/17 3:01:00 REGULATORY AFFAIRS INTERN, Stop date: 11/21/17 3:01:00 CSTNotes: (Same as: Apresoline) Push over 5 minutes Inactive 11/21/2017 [facility] Docusate 100 mg, 1 cap, Route: PO, Drug form: CAP, BID, Dosing Weight 105.455, kg, Start date: 11/20/17 9:00:00 REGULATORY AFFAIRS INTERN, Duration: 30 day, Stop date: 12/19/17 17:00:00 CSTNotes: (Same as: Colace) (Do Not Crush) No Longer Active 11/20/2017 [facility] Rocephin 1 gm, Route: IV, [id number], Dosing Weight 105.455, kg, Start date: 11/20/17 2:00:00 REGULATORY AFFAIRS INTERN, Duration: 4 day, Stop date: 11/23/17 2:00:00 REGULATORY AFFAIRS INTERN, ABX Indication: Urinary Tract InfectionNotes: (Same As: Rocephin). Use with 100 mL NS and infuse over 30 min MEDICATION WASTE Product Size: 1000 mg Product Wasted: ___ mg No Longer Active 11/20/2017 [facility] Insulin Lispro 8 unit, 0.08 mL, Route: SUB-Q, Drug form: SOLN, TID-Before Meals, Dosing Weight 105.455, kg, PRN Blood Glucose Results, Start date: 11/20/17 1:53:00 REGULATORY AFFAIRS INTERN, Duration: 30 day, Stop date: 12/20/17 1:52:00 CSTNotes: Roll in palms of hands gently; Do not shake `vigorously. (Same as: Humalog ) "Single Patient Use Only " WASTE: F/P - Black; E - Municipal Trash Bin Stable for 28 days at room temperature. Expires in days from Date No Longer Active 11/20/2017 [facility] Glucagon 1 mg, Route: IM, Drug form: PDR/INJ, PRN, Dosing Weight 105.455, kg, PRN Blood Glucose Results, Start date: 11/20/17 1:53:00 REGULATORY AFFAIRS INTERN, Duration: 30 day, Stop date: 12/20/17 1:52:00 REGULATORY AFFAIRS INTERN No Longer Active 11/20/2017 [facility] Dextrose 50% Syringe 25 gm, 50 mL, Route: IVP, Drug Form: INJ, Dosing Weight 105.455, kg, PRN, PRN Blood Glucose Results, Start date: 11/20/17 1:53:00 REGULATORY AFFAIRS INTERN, Duration: 30 day, Stop date: 12/20/17 1:52:00 REGULATORY AFFAIRS INTERN No Longer Active 11/20/2017 [facility] Saline Flush 0.9% 10 ml, Route: IVP, Drug Form: INJ, Dosing Weight 105.455, kg, PRN, PRN Line Flush, Start date: 11/20/17 1:52:00 REGULATORY AFFAIRS INTERN, Duration: 30 day, Stop date: 12/20/17 1:51:00 CSTNotes: (Same as: BD Posiflush) No Longer Active 11/20/2017 [facility] Acetaminophen 325 mg, 1 tab, Route: PO, Drug form: TAB, Q4H, Dosing Weight 105.455, kg, PRN Pain Score 4-6, Start date: 11/20/17 1:52:00 REGULATORY AFFAIRS INTERN, Duration: 30 day, Stop date: 12/20/17 1:51:00 CSTNotes: Do not exceed 4 gm/day. (Same as: Tylenol) No Longer Active 11/20/2017 [facility] Ondansetron 4 mg, 2 mL, Route: IVP, Drug form: INJ, Q6H, Dosing Weight 105.455, kg, PRN Nausea & Vomiting, Start date: 11/20/17 1:52:00 REGULATORY AFFAIRS INTERN, Duration: 30 day, Stop date: 12/20/17 1:51:00 CSTNotes: (Same as: Zofran) MEDICATION WASTE Product Size: 4 mg Product Wasted: ___ mg No Longer Active 11/20/2017 [facility] Sodium Chloride 0.9% IV 1,000 mL 1,000 mL, Rate: 75 ml/hr, Infuse over: 13.3 hr, Route: IV, Dosing Weight 105.455 kg, Total Volume: 1,000, Start date: 11/20/17 1:52:00 REGULATORY AFFAIRS INTERN, Duration: 30 day, Stop date: 12/20/17 1:51:00 REGULATORY AFFAIRS INTERN, 2.25, m2 No Longer Active 11/20/2017 [facility] Insulin regular 5 unit, Route: SUB-Q, ONCE, Dosing Weight 105.455, kg, Priority: STAT, Start date: 11/20/17 1:17:00 REGULATORY AFFAIRS INTERN, Stop date: 11/20/17 1:17:00 REGULATORY AFFAIRS INTERN Inactive 11/20/2017 [facility] Ciprofloxacin 400 mg, 200 mL, Route: IVPB, Drug form: INJ, ONCE, Dosing Weight 105.455, kg, Priority: STAT, Start date: 11/19/17 23:28:00 REGULATORY AFFAIRS INTERN, Stop date: 11/19/17 23:28:00 REGULATORY AFFAIRS INTERN, ABX Indication: Urinary Tract Infect ionNotes: Do not refrigerate No Longer Active 11/20/2017 [facility] Ceftriaxone 1 gm, Route: IVPB, ONCE, Dosing Weight 105.455, kg, Priority: STAT, Start date: 11/19/17 23:27:00 REGULATORY AFFAIRS INTERN, Stop date: 11/19/17 23:27:00 REGULATORY AFFAIRS INTERN, ABX Indication: Urinary Tract Infection Inactive 11/20/2017 [facility] Levemir Flex touch 35 units intradermal Active 100 units intradermal BID Jake [facility]02[facility] Lasix 40 mg, Route: IVP, Drug form: INJ, ONCE, Dosing Weight 117.727, kg, Priority: STAT, Start date: 08/14/17 6:00:00 CDT, Stop date: 08/14/17 6:00:00 CDT Inactive 08/14/2017 [facility] Cipro 1 tablet Orally Active 500 MG Orally Twice a day Jake 08/13/2017 [facility] Famotidine 20 MG Oral Tablet [Pepcid] 20 mg, 1 tab, Route: PO, Drug form: TAB, BID, Dosing Weight 114.091, kg, Start date: 07/30/17 9:00:00 CDT, Duration: 30 day, Stop date: 08/28/17 17:00:00 CDTNotes: (Same as: Pepcid) No Longer Active 07/30/2017 [facility] aspirin 81 mg tablet, enteric coated 81 mg, 1 tab, Route: PO, Drug form: ECTAB, Daily, Dosing Weight 114.091, kg, Start date: 07/30/17 9:00:00 CDT, Duration: 30 day, Stop date: 08/28/17 9:00:00 CDT No Longer Active 07/30/2017 [facility] Paroxetine 20 mg, 2 tab, Route: PO, Drug form: TAB, Daily, Dosing Weight 114.091, kg, Start date: 07/30/17 9:00:00 CDT, Duration: 30 day, Stop date: 08/28/17 9:00:00 CDTNotes: (Same as: Paxil) No Longer Active 07/30/2017 [facility] Lisinopril 10 mg, 2 tab, Route: PO, Drug form: TAB, Daily, Dosing Weight 114.091, kg, Start date: 07/30/17 9:00:00 CDT, Duration: 30 day, Stop date: 08/28/17 9:00:00 CDTNotes: (Same as: Prinivil, Zestril) No Longer Active 07/30/2017 [facility] insulin detemir Route: SUB-Q, Drug form: SOLN, BID, Dosing Weight 114.091, kg, Start date: 07/30/17 9:00:00 CDT, Duration: 30 day, Stop date: 08/28/17 17:00:00 CDT No Longer Active 07/30/2017 [facility] Insulin regular 5 unit, Route: SUB-Q, TID-Before Meals, Dosing Weight 114.091, kg, Start date: 07/30/17 7:30:00 CDT, Duration: 30 day, Stop date: 08/28/17 16:30:00 CDT No Longer Active 07/30/2017 [facility] Humalog 5 unit, 0.05 mL, Route: SUB-Q, Drug form: SOLN, TID-Before Meals, Start date: 07/30/17 7:30:00 CDT, Duration: 30 day, Stop date: 08/28/17 16:30:00 CDTNotes: Roll in palms of hands gently; Do not shake `vigorously. (Same as: Humalog ) "Single Patient Use Only " WASTE: F/P - Black; E - Municipal Trash Bin Stable for 28 days at room temperature. Expires in days from Date No Longer Active 07/30/2017 [facility] insulin glargine 35 unit, 0.35 mL, Route: SUB-Q, Drug form: SOLN, Bedtime, Start date: 07/29/17 21:00:00 CDT, Stop date: 08/27/17 21:00:00 CDTNotes: (Same as: Lantus) Do not hold insulin without contacting prescriber W ASTE: F/P - Black; E - Municipal Trash Bin "single patient use only" No Longer Active 07/30/2017 [facility] carvedilol 3.125 mg, 1 tab, Route: PO, Drug form: TAB, BID, Dosing Weight 114.091, kg, Start date: 07/29/17 21:00:00 CDT, Duration: 30 day, Stop date: 08/28/17 9:00:00 CDTNotes: Give with food. (Same As: Coreg) No Longer Active 07/30/2017 [facility] Pravastatin 20 mg, 1 tab, Route: PO, Drug form: TAB, Bedtime, Dosing Weight 114.091, kg, Start date: 07/29/17 21:00:00 CDT, Duration: 30 day, Stop date: 08/27/17 21:00:00 CDTNotes: (Same as: Pravachol) No Longer Active 07/30/2017 [facility] Insulin Lispro 4 unit, 0.04 mL, Route: SUB-Q, Drug form: SOLN, Bedtime, Dosing Weight 114.091, kg, PRN Blood Glucose Results, Start date: 07/29/17 20:10:00 CDT, Duration: 30 day, Stop date: 08/28/17 20:09:00 CDTNotes: Roll in palms of hands gently; Do not shake `vigorously. (Same as: Humalog ) "Single Patient Use Only " WASTE: F/P - Black; E - Municipal Trash Bin Stable for 28 days at room temperature. Expires in days from Date No Longer Active 07/30/2017 [facility] Glucagon 1 mg, Route: IM, Drug form: PDR/INJ, PRN, Dosing Weight 114.091, kg, PRN Blood Glucose Results, Start date: 07/29/17 20:10:00 CDT, Duration: 30 day, Stop date: 08/28/17 20:09:00 CDT No Longer Active 07/30/2017 [facility] Dextrose 50% Syringe 25 gm, 50 mL, Route: IVP, Drug Form: INJ, Dosing Weight 114.091, kg, PRN, PRN Blood Glucose Results, Start date: 07/29/17 20:10:00 CDT, Duration: 30 day, Stop date: 08/28/17 20:09:00 CDT No Longer Active 07/30/2017 [facility] tramadol hydrochloride 50 MG Oral Tablet 50 mg, 1 tab, Route: PO, Drug form: TAB, Q12H, Dosing Weight 114.091, kg, PRN Pain Score 6-10, Start date: 07/29/17 18:38:00 CDT, Duration: 30 day, Stop date: 08/28/17 18:37:00 CDTNotes: Not to exceed 400mg/day. (Same As: Ultram) No Longer Active 07/29/2017 [facility] Lactulose 667 MG/ML Oral Solution 20 gm, 30 mL, Route: PO, Drug form: SYRP, Daily, Dosing Weight 114.091, kg, PRN Constipation, Start date: 07/29/17 18:38:00 CDT, Duration: 30 day, Stop date: 08/28/17 18:37:00 CDTNotes: (Same as:Chronulac) No Longer Active 07/29/2017 [facility] Saline Flush 0.9% 10 ml, Route: IVP, Drug Form: INJ, Dosing Weight 114.091, kg, Q12H, Start date: 07/29/17 9:00:00 CDT, Duration: 30 day, Stop date: 08/27/17 21:00:00 CDTNotes: (Same as: BD Posiflush) No Longer Active 07/29/2017 [facility] Furosemide 40 mg, 4 mL, Route: IVP, Drug form: INJ, Q8H, Dosing Weight 114.091, kg, Start date: 07/29/17 8:00:00 CDT, Duration: 30 day, Stop date: 08/28/17 0:00:00 CDTNotes: (Same as: Lasix) MEDICATION WASTE Product Size: 40 mg Product Wasted: ___ mg No Longer Active 07/29/2017 [facility] heparin 7,500 unit, 1.5 mL, Route: SUB-Q, Drug form: INJ, Q8H, Dosing Weight 114.091, kg, Consider for obese patients, Start date: 07/29/17 8:00:00 CDT, Duration: 30 day, Stop date: 08/28/17 0:00:00 CDTNotes: porcine heparin No Longer Active 07/29/2017 [facility] Tylenol 650 mg, PO, Q4H, PRN Headache 1-5, 0 Refill(s) Active 07/29/2017 [facility] Famotidine 20 MG Oral Tablet [Pepcid] 20 mg=1 tab, PO, BID, # 60 tab, 0 Refill(s) Active 07/29/2017 [facility] aspirin 81 mg tablet, enteric coated 81 mg, 1 tab, Route: PO, Drug form: ECTAB, Q24H, Dosing Weight 114.091, kg, Start date: 07/29/17 4:00:00 CDT, Duration: 30 day, Stop date: 08/27/17 9:00:00 CDTNotes: Do not crush or chew. (Same As: Ecotrin) No Longer Active 07/29/2017 [facility] Saline Flush 0.9% 10 ml, Route: IVP, Drug Form: INJ, Dosing Weight 114.091, kg, PRN, PRN Line Flush, Start date: 07/29/17 2:22:00 CDT, Duration: 30 day, Stop date: 08/28/17 2:21:00 CDTNotes: (Same as: BD Posiflush) No Longer Active 07/29/2017 [facility] Ondansetron 4 mg, 2 mL, Route: IVP, Drug form: INJ, Q8H, Dosing Weight 114.091, kg, PRN Nausea & Vomiting, Start date: 07/29/17 2:22:00 CDT, Duration: 30 day, Stop date: 08/28/17 2:21:00 CDTNotes: (Same as: Zofran) MEDICATION WASTE Product Size: 4 mg Product Wasted: ___ mg No Longer Active 07/29/2017 [facility] Lasix 40 mg, 4 mL, Route: IVP, Drug form: INJ, ONCE, Dosing Weight 114.091, kg, Priority: STAT, Start date: 07/29/17 0:03:00 CDT, Stop date: 07/29/17 0:03:00 CDTNotes: (Same as: Lasix) MEDICATION WASTE Product Size: 40 mg Product Wasted: ___ mg Inactive 07/29/2017 [facility] Saline Flush 0.9% 10 mL, Route: IVP, Drug Form: INJ, Dosing Weight 113.636, kg, PRN, PRN Line Flush, Start date: 07/28/17 16:33:00 CDT, Duration: 30 day, Stop date: 08/27/17 16:32:00 CDTNotes: (Same as: BD Posiflush) No Longer Active 07/28/2017 [facility] Potassium Citrate ER 1 tablet with meals Orally Active 10 MEQ (1080 MG) Orally every day (qd) Jake 07/28/2017 [facility] Bumex 1 tablet Orally Active 0.5 MG Orally Once a day Jake 07/28/2017 [facility] tramadol hydrochloride 50 MG Oral Tablet 50 mg=1 tab, PO, Q12H, X 7 day, # 14 tab, 0 Refill(s) Active 06/22/2017 [facility] Acetaminophen 325 MG / Hydrocodone Bitartrate 5 MG Oral Tablet 1 tab, Route: PO, Drug Form: TAB, Dosing Weight 110, kg, ONCE, STAT, Start date: 06/22/17 0:24:00 CDT, Stop date: 06/22/17 0:24:00 CDTNotes: (Same as: Jenkins 325/5) Do not exceed 4gm/day of acetaminophen. Inactive 06/22/2017 [facility] Fluconazole 1 tablet Orally Active 100 MG Orally daily Jake [facility]18[facility] Insulin, Aspart, Human 5 unit, 0.05 mL, Route: SUB-Q, Drug form: SOLN, Before Breakfast, Dosing Weight 110, kg, Start date: 06/03/17 7:30:00 CDT, Duration: 30 day, Stop date: 07/02/17 7:30:00 CDTNotes: Roll in palms of hands gently; Do not shake vigorously. (Same as: NovoLOG) "single patient use only" WASTE: F/P - Black; E - Municipal Trash Bin Stable for 28 days at room temperature. Expires in days from Date No Longer Active 06/03/2017 [facility] Insulin, Aspart, Human 20 unit, 0.2 mL, Route: SUB-Q, Drug form: SOLN, Before Dinner, Dosing Weight 110, kg, Start date: 06/02/17 16:30:00 CDT, Stop date: 07/01/17 16:30:00 CDTNotes: Roll in palms of hands gently; Do not shake vigorously. (Same as: NovoLOG) "single patient use only" WASTE: F/P - Black; E - Municipal Trash Bin Stable for 28 days at room temperature. Expires in days from Date Inactive 06/02/2017 [facility] pravastatin 20 mg oral tablet 20 mg=1 tab, PO, Bedtime, # 30 tab, 0 Refill(s), Pharmacy: [facility] [id number] Active 06/02/2017 [facility] Vitamin B 12 1,000 microgram=1 mL, IM, Daily, daily for 7 days then once a week for 4 weeks then once a month., 0 Refill(s) Active 06/02/2017 [facility] aspirin 81 mg tablet, enteric coated 81 mg=1 tab, PO, Daily, 0 Refill(s) Active 06/02/2017 [facility] ciprofloxacin 500 mg oral tablet 500 mg=1 tab, PO, [id number], 0 Refill(s) Active 06/02/2017 [facility] Insulin, Aspart, Human 5 unit, SUB-Q, Before Breakfast, 0 Refill(s) Active 06/02/2017 [facility] lisinopril 5 mg oral tablet 10 mg=2 tab, PO, Daily, 0 Refill(s) Active 06/02/2017 [facility] Lactulose 667 MG/ML Oral Solution 20 gm=30 mL, PO, Daily, PRN Constipation, 0 Refill(s) Active 06/02/2017 [facility] insulin detemir 100 units/mL subcutaneous solution 30 unit, SUB-Q, BID, 0 Refill(s) Active 06/02/2017 [facility] Insulin, Aspart, Human 20 unit, 0.2 mL, Route: SUB-Q, Drug form: SOLN, Before Lunch, Dosing Weight 110, kg, Start date: 06/02/17 11:30:00 CDT, Duration: 30 day, Stop date: 07/01/17 11:30:00 CDTNotes: Roll in palms of hands gently; Do not shake vigorously. (Same as: NovoLOG) "single patient use only" WASTE: F/P - Black; E - Municipal Trash Bin Stable for 28 days at room temperature. Expires in days from Date Inactive 06/02/2017 [facility] Vitamin B12 1,000 microgram, 1 mL, Route: IM, Drug form: INJ, Daily, Dosing Weight 110, kg, Start date: 06/02/17 9:00:00 CDT, Duration: 30 day, Stop date: 07/01/17 9:00:00 CDTNotes: (Same As: Vitamin B12) Inactive 06/02/2017 [facility] Cipro 500 mg, 1 tab, Route: PO, Drug form: TAB, [id number], Dosing Weight 110, kg, Start date: 05/30/17 10:00:00 CDT, Duration: 10 day, Stop date: 06/08/17 22:00:00 CDT, ABX Indication: Urinary Tract InfectionNotes: May interfere w/enteral feedings - Take 1 hr before or 2 hrs after antacids, dairy pdt & minerals. On empty stomach. No Longer Active 05/30/2017 [facility] Levemir FlexPen 15 unit, 0.15 mL, Route: SUB-Q, Drug form: SOLN, Bedtime, Dosing Weight 110, kg, Start date: 05/28/17 21:00:00 CDT, Duration: 30 day, Stop date: 06/26/17 21:00:00 CDTNotes: Same as Levemir Do not hold insulin without contacting prescriber WASTE: F/P - Black; E - Municipal Trash Bin "single patient use only" Inactive 05/29/2017 [facility] insulin detemir 30 unit, 0.3 mL, Route: SUB-Q, Drug form: SOLN, BID, Dosing Weight 110, kg, Start date: 05/28/17 21:00:00 CDT, Duration: 30 day, Stop date: 06/27/17 9:00:00 CDTNotes: Same as Levemir Do not hold insu mir without contacting prescriber WASTE: F/P - Black; E - Municipal Trash Bin "single patient use only" No Longer Active 05/29/2017 [facility] Levemir 40 unit, 0.4 mL, Route: SUB-Q, Drug form: SOLN, QAM, Dosing Weight 110, kg, Start date: 05/28/17 10:30:00 CDT, Duration: 30 day, Stop date: 06/27/17 9:00:00 CDTNotes: Same as Levemir Do not hold insulin without contacting prescriber WASTE: F/P - Black; E - [facility] "single patient use only" Inactive 05/28/2017 [facility] Ativan 0.5 mg, 1 tab, Route: PO, Drug form: TAB, ONCE, Dosing Weight 110, kg, PRN as needed for anxiety, Start date: 05/27/17 21:12:00 CDTNotes: (Same as: Ativan) No Longer Active 05/28/2017 [facility] Lasix 40 mg, 4 mL, Route: IVP, Drug form: INJ, Daily, Dosing Weight 110, kg, Start date: 05/27/17 16:00:00 CDT, Duration: 30 day, Stop date: 06/26/17 9:00:00 CDTNotes: (Same as: Lasix) MEDICATION WASTE Product Size: 40 mg Product Wasted: ___ mg No Longer Active 05/27/2017 [facility] Acetaminophen 325 MG / Hydrocodone Bitartrate 5 MG Oral Tablet 1 tab, Route: PO, Drug Form: TAB, Dosing Weight 110, kg, Q6H, PRN Pain Score 6-10, Start date: 05/27/17 14:38:00 CDT, Duration: 30 day, Stop date: 06/26/17 14:37:00 CDTNotes: (Same as: Jenkins 325/5) Do not exceed 4gm/day of acetaminophen. No Longer Active 05/27/2017 [facility] Lisinopril 10 mg, 2 tab, Route: PO, Drug form: TAB, Daily, Dosing Weight 110, kg, Start date: 05/27/17 9:00:00 CDT, Duration: 30 day, Stop date: 06/25/17 9:00:00 CDTNotes: (Same as: Prinivil, Zestril) No Longer Active 05/27/2017 [facility] Levemir 60 unit, 0.6 mL, Route: SUB-Q, Drug form: SOLN, ONCE, Dosing Weight 110, kg, Start date: 05/27/17 8:55:00 CDT, Stop date: 05/27/17 8:55:00 CDTNotes: Same as Levemir Do not hold insulin without contactin elina prescriber WASTE: F/P - Black; E - Municipal Trash Bin "single patient use only" Inactive 05/27/2017 [facility] Ativan 1 mg, 0.5 mL, Route: IVP, Drug form: INJ, ONCE, Dosing Weight 110, kg, PRN Anxiety, Start date: 05/26/17 17:40:00 CDTNotes: (Same as: Ativan) No Longer Active 05/26/2017 [facility] Saline Flush 0.9% 10 ml, Route: IVP, Drug Form: INJ, Dosing Weight 110, kg, Q12H, Start date: 05/26/17 9:00:00 CDT, Duration: 30 day, Stop date: 06/24/17 21:00:00 CDTNotes: (Same as: BD Posiflush) No Longer Active 05/26/2017 [facility] aspirin 81 mg tablet, enteric coated 81 mg, 1 tab, Route: PO, Drug form: ECTAB, Daily, Dosing Weight 110, kg, Start date: 05/26/17 9:00:00 CDT, Duration: 30 day, Stop date: 06/24/17 9:00:00 CDTNotes: Do not crush or chew. (Same As: Ecotrin) No Longer Active 05/26/2017 [facility] Bumetanide 1 mg, 1 tab, Route: PO, Drug form: TAB, Daily, Dosing Weight 110, kg, Start date: 05/26/17 9:00:00 CDT, Duration: 30 day, Stop date: 06/24/17 9:00:00 CDTNotes: (Same As: Bumex) No Longer Active 05/26/2017 [facility] Paroxetine 20 mg, 1 tab, Route: PO, Drug form: TAB, Daily, Dosing Weight 110, kg, Start date: 05/26/17 9:00:00 CDT, Duration: 30 day, Stop date: 06/24/17 9:00:00 CDTNotes: (Same as: Paxil) No Longer Active 05/26/2017 [facility] Lisinopril 30 mg, 1.5 tab, Route: PO, Drug form: TAB, Daily, Dosing Weight 110, kg, Start date: 05/26/17 9:00:00 CDT, Duration: 30 day, Stop date: 06/24/17 9:00:00 CDTNotes: (Same as: Prinivil, Zestril) Inactive 05/26/2017 [facility] carvedilol 3.125 mg, 1 tab, Route: PO, Drug form: TAB, Q12H, Dosing Weight 110, kg, Start date: 05/26/17 9:00:00 CDT, Duration: 30 day, Stop date: 06/24/17 21:00:00 CDTNotes: Give with food. (Same As: Coreg) No Longer Active 05/26/2017 [facility] insulin aspart 20 unit, 0.2 mL, Route: SUB-Q, Drug form: SOLN, TID-Before Meals, Start date: 05/26/17 7:30:00 CDT, Duration: 30 day, Stop date: 06/24/17 16:30:00 CDTNotes: Roll in palms of hands gently; Do not shake vigorously. (Same as: NovoLOG) "single patient use only" WASTE: F/P - Black; E - Municipal Trash Bin Stable for 28 days at room temperature. Expires in days from Date No Longer Active 05/26/2017 [facility] Humalog 20 unit, Route: SUB-Q, TID-Before Meals, Dosing Weight 110, kg, Start date: 05/26/17 7:30:00 CDT, Duration: 30 day, Stop date: 06/24/17 16:30:00 CDT No Longer Active 05/26/2017 [facility] Saline Flush 0.9% 10 ml, Route: IVP, Drug Form: INJ, Dosing Weight 110, kg, PRN, PRN Line Flush, Start date: 05/26/17 2:22:00 CDT, Duration: 30 day, Stop date: 06/25/17 2:21:00 CDTNotes: (Same as: BD Posiflush) No Longer Active 05/26/2017 [facility] Labetalol 10 mg, 2 mL, Route: IVP, Drug form: INJ, Q10Min, Dosing Weight 110, kg, PRN Hypertension, For SBP > 180 mmHg and/or DBP > 105 mmHg, Priority: Routine, Start date: 05/26/17 2:22:00 CDT, Duration: 30 day, Stop date: 06/25/17 2:21:00 CDTNotes: (Same as: Normodyne, Trandate) Push over 2 minutes Give bolus over 2-3 minutes. No Longer Active 05/26/2017 [facility] Ativan 1 mg, 0.5 mL, Route: IVP, Drug form: INJ, ONCE, Dosing Weight 110, kg, PRN Anxiety, Start date: 05/26/17 0:29:00 CDTNotes: (Same as: Ativan) Inactive 05/26/2017 [facility] Enoxaparin 40 mg, 0.4 mL, Route: SUB-Q, Drug form: INJ, [id number], Dosing Weight 110, kg, Start date: 05/25/17 23:00:00 CDT, Duration: 30 day, Stop date: 06/24/17 21:30:00 CDTNotes: (Same as: Lovenox) No Longer Active 05/26/2017 [facility] Insulin, Aspart, Human 3 unit, 0.03 mL, Route: SUB-Q, Drug form: SOLN, TID-Before Meals, Dosing Weight 110, kg, PRN Blood Glucose Results, Start date: 05/25/17 22:51:00 CDT, Duration: 30 day, Stop date: 06/24/17 22:50:00 CDTNotes: Roll in palms of hands gently; Do not shake vigorously. (Same as: NovoLOG) "single patient use only" WASTE: F/P - Black; E - Municipal Trash Bin Stable for 28 days at room temperature. Expires in days from Date No Longer Active 05/26/2017 [facility] Dextrose 50% Syringe 12.5 gm, 25 mL, Route: IVP, Drug Form: INJ, Dosing Weight 110, kg, PRN, PRN Blood Glucose Results, Start date: 05/25/17 22:51:00 CDT, Duration: 30 day, Stop date: 06/24/17 22:50:00 CDT No Longer Active 05/26/2017 [facility] Glucagon 1 mg, Route: IM, Drug form: PDR/INJ, PRN, Dosing Weight 110, kg, PRN Blood Glucose Results, Start date: 05/25/17 22:51:00 CDT, Duration: 30 day, Stop date: 06/24/17 22:50:00 CDT No Longer Active 05/26/2017 [facility] tramadol hydrochloride 50 MG Oral Tablet 50 mg, 1 tab, Route: PO, Drug form: TAB, Q12H, Dosing Weight 110, kg, PRN Pain Score 6-10, Start date: 05/25/17 22:45:00 CDT, Duration: 30 day, Stop date: 06/24/17 22:44:00 CDTNotes: Not to exceed 400mg/day. (Same As: Ultram) No Longer Active 05/26/2017 [facility] Lactulose 667 MG/ML Oral Solution 20 gm, 30 mL, Route: PO, Drug form: SYRP, Daily, Dosing Weight 110, kg, PRN Constipation, Start date: 05/25/17 22:45:00 CDT, Duration: 30 day, Stop date: 06/24/17 22:44:00 CDTNotes: (Same as:Chronulac) No Longer Active 05/26/2017 [facility] Hyoscyamine 0.125 mg, 1 tab, Route: PO, Drug form: TAB, Q4H, Dosing Weight 110, kg, PRN Spasm, Start date: 05/25/17 22:45:00 CDT, Duration: 30 day, Stop date: 06/24/17 22:44:00 CDTNotes: (Same as: Levsin) Take 30 min before meal No Longer Active 05/26/2017 [facility] Albuterol / Ipratropium 3 mL, Route: NEB, Drug Form: SOLN, Dosing Weight 110, kg, RQ2H, PRN as needed for shortness of breath or wheezing, Start date: 05/25/17 22:44:00 CDT, Duration: 30 day, Stop date: 06/24/17 22:43:00 CDTNotes: (Same as: Duoneb) No Longer Active 05/26/2017 [facility] PARoxetine 20 mg oral tablet 20 mg=1 tab, PO, Daily, # 30 tab, 0 Refill(s) Active 05/26/2017 [facility] bumetanide 1 mg oral tablet 1 mg=1 tab, PO, Daily, # 30 tab, 0 Refill(s) No Longer Active 05/26/2017 [facility] carvedilol 3.125 mg oral tablet 3.125 mg=1 tab, PO, BID, # 180 tab, 0 Refill(s) Active 05/26/2017 [facility] Saline Flush 0.9% 10 mL, Route: IVP, Drug Form: INJ, Dosing Weight 110, kg, PRN, PRN Line Flush, Start date: 05/25/17 12:30:00 CDT, Duration: 30 day, Stop date: 06/24/17 12:29:00 CDTNotes: preservative free. No Longer Active 05/25/2017 [facility] Aspirin 324 mg, 4 tab, Route: PO, Drug form: CHEWTAB, ONCE, Dosing Weight 110, kg, Priority: STAT, Start date: 05/25/17 12:30:00 CDT, Stop date: 05/25/17 12:30:00 CDTNotes: Take with food. Inactive 05/25/2017 [facility] Medical Compression Stockings as directed as directed Active - as directed daily on in am and off in pm [facility] 05/12/2017 Paulo Harden Levemir Flex touch 30 units intradermal Active 100 units intradermal as directed [facility] 04/24/2017 Paulo Zaman Levemir Flex touch 30 units intradermal Active 100 units intradermal as directed [facility] 04/24/2017 Paulo Harden Gabapentin 1 capsule Orally Active 100 MG Orally three times a day (tid) [facility] 02/20/2017 Paulo Harden Levofloxacin 500 MG Oral Tablet [Levaquin] 500 mg=1 tab, PO, Q24H, X 10 day, # 10 tab, 0 Refill(s), Pharmacy: [facility] [id number] Active 02/12/2017 [facility] Senna S oral tablet 2 tab, PO, Bedtime, X 30 day, # 60 tab, 0 Refill(s), Pharmacy: [facility] [id number] Active 02/12/2017 [facility] sennosides, C[facility] 8.6 mg, 1 tab, Route: PO, Drug Form: TAB, Dosing Weight 105.455, kg, BID, PRN Constipation, Start date: 02/11/17 16:22:00 CDT, Duration: 30 day, Stop date: 03/13/17 16:21:00 CDTNotes: (Same as: Senok ot) No Longer Active 02/11/2017 [facility] Hydralazine Hydrochloride 25 MG Oral Tablet 25 mg, 1 tab, Route: PO, Drug form: TAB, TID, Dosing Weight 105.455, kg, PRN Hypertension, Start date: 02/11/17 12:43:00 CDT, Duration: 30 day, Stop date: 03/13/17 12:42:00 CDT, SBP >155Notes: (Same as: Apresoline) May interfere w/enteral feedings Take With Food. No Longer Active 02/11/2017 [facility] Ceftriaxone 1 gm, Route: IVPB, [id number], Dosing Weight 109.545, kg, Start date: 02/11/17 5:00:00 CDT, Duration: 30 day, Stop date: 03/12/17 5:00:00 CDTNotes: (Same As: Rocephin). Use with 100 mL NS and infuse over 30 min MEDICATION WASTE Product Size: 1000 mg Product Wasted: ___ mg No Longer Active 02/11/2017 [facility] insulin detemir 30 unit, 0.3 mL, Route: SUB-Q, Drug form: SOLN, Bedtime, Dosing Weight 109.545, kg, Start date: 02/10/17 21:00:00 CDT, Duration: 30 day, Stop date: 03/11/17 21:00:00 CDTNotes: Same as Levemir Do not hold insulin without contacting prescriber WASTE: F/P - Black; E - Municipal Trash Bin "single patient use only" No Longer Active 02/11/2017 [facility] insulin aspart 5 unit, 0.05 mL, Route: SUB-Q, Drug form: SOLN, TID-Before Meals, Start date: 02/10/17 16:30:00 CDT, Duration: 30 day, Stop date: 03/12/17 11:30:00 CDTNotes: Roll in palms of hands gently; Do not sh jl vigorously. (Same as: NovoLOG) "single patient use only" WASTE: F/P - Black; E - Municipal Trash Bin Stable for 28 days at room temperature. Expires in days from Date No Longer Active 02/10/2017 [facility] Insulin regular 5 unit, Route: SUB-Q, TID-Before Meals, Dosing Weight 105.455, kg, Start date: 02/10/17 16:30:00 CDT, Duration: 30 day, Stop date: 03/12/17 11:30:00 CDT Inactive 02/10/2017 [facility] Insulin, Aspart, Human 3 unit, 0.03 mL, Route: SUB-Q, Drug form: SOLN, Bedtime, Dosing Weight 105.455, kg, PRN Blood Glucose Results, Start date: 02/10/17 12:47:00 CDT, Duration: 30 day, Stop date: 03/12/17 12:46:00 CDTNotes: Roll in palms of hands gently; Do not shake vigorously. (Same as: NovoLOG) "single patient use only" WASTE: F/P - Black; E - Municipal Trash Bin Stable for 28 days at room temperature. Expires in days from Date No Longer Active 02/10/2017 [facility] Glucagon 1 mg, Route: IM, Drug form: PDR/INJ, PRN, Dosing Weight 105.455, kg, PRN Blood Glucose Results, Start date: 02/10/17 12:47:00 CDT, Duration: 30 day, Stop date: 03/12/17 12:46:00 CDT No Longer Active 02/10/2017 [facility] Dextrose 50% Syringe 25 gm, 50 mL, Route: IVP, Drug Form: INJ, Dosing Weight 105.455, kg, PRN, PRN Blood Glucose Results, Start date: 02/10/17 12:47:00 CDT, Duration: 30 day, Stop date: 03/12/17 12:46:00 CDT No Longer Active 02/10/2017 [facility] Paroxetine 10 mg, 1 tab, Route: PO, Drug form: TAB, Daily, Dosing Weight 109.545, kg, Start date: 02/10/17 9:00:00 CDT, Duration: 30 day, Stop date: 03/11/17 9:00:00 CDTNotes: (Same as: Paxil) No Longer Active 02/10/2017 [facility] Lyrica 75 mg, 1 cap, Route: PO, Drug form: CAP, BID, Dosing Weight 109.545, kg, Start date: 02/10/17 9:00:00 CDT, Duration: 30 day, Stop date: 03/11/17 17:00:00 CDTNotes: (Same as: Lyrica) No Longer Active 02/10/2017 [facility] Lisinopril 30 mg, 1.5 tab, Route: PO, Drug form: TAB, Daily, Dosing Weight 109.545, kg, Start date: 02/10/17 9:00:00 CDT, Duration: 30 day, Stop date: 03/11/17 9:00:00 CDTNotes: (Same as: Prinivil, Zestril) No Longer Active 02/10/2017 [facility] Furosemide 40 MG Oral Tablet [Lasix] 40 mg, 1 tab, Route: PO, Drug form: TAB, BID, Dosing Weight 109.545, kg, Start date: 02/10/17 9:00:00 CDT, Duration: 30 day, Stop date: 03/11/17 17:00:00 CDTNotes: (Same as: Lasix) May cause GI upset. Give with food or milk. No Longer Active 02/10/2017 [facility] Enoxaparin 40 mg, 0.4 mL, Route: SUB-Q, Drug form: INJ, [id number], Dosing Weight 109.545, kg, Start date: 02/10/17 8:00:00 CDT, Duration: 30 day, Stop date: 03/11/17 8:00:00 CDTNotes: (Same as: Lovenox) No Longer Active 02/10/2017 [facility] tramadol hydrochloride 50 MG Oral Tablet 50 mg, 1 tab, Route: PO, Drug form: TAB, Q12H, Dosing Weight 109.545, kg, PRN Pain Score 6-10, Start date: 02/10/17 7:03:00 CDT, Duration: 30 day, Stop date: 03/12/17 7:02:00 CDTNotes: Not to exceed 400mg/day. (Same As: Ultram) No Longer Active 02/10/2017 [facility] Lactulose 667 MG/ML Oral Solution 20 gm, 30 mL, Route: PO, Drug form: SYRP, Daily, Dosing Weight 109.545, kg, PRN Constipation, Start date: 02/10/17 7:03:00 CDT, Duration: 30 day, Stop date: 03/12/17 7:02:00 CDTNotes: (Same as:Chronulac) No Longer Active 02/10/2017 [facility] Hyoscyamine 0.125 mg, 1 tab, Route: PO, Drug form: TAB, Q4H, Dosing Weight 109.545, kg, PRN Spasm, Start date: 02/10/17 7:03:00 CDT, Duration: 30 day, Stop date: 03/12/17 7:02:00 CDTNotes: (Same as: Levsin) Take 30 min before meal No Longer Active 02/10/2017 [facility] Albuterol / Ipratropium 3 mL, Route: NEB, Drug Form: SOLN, Dosing Weight 109.545, kg, RQ2H, PRN as needed for shortness of breath or wheezing, Start date: 02/10/17 7:02:00 CDT, Duration: 30 day, Stop date: 03/12/17 7:01:00 CDTNotes: (Same as: Duoneb) No Longer Active 02/10/2017 [facility] PARoxetine 10 mg oral tablet 10 mg=1 tab, PO, Daily, # 30 tab, 0 Refill(s) Active 02/10/2017 [facility] Humalog See Instructions, SUB-Q, 0 Refill(s) Active 02/10/2017 [facility] Rocephin 1 gm, Route: IVPB, Drug form: PDR/INJ, ONCE, Dosing Weight 109.545, kg, Priority: STAT, Start date: 02/10/17 4:41:00 CDT, Stop date: 02/10/17 4:41:00 CDT Inactive 02/10/2017 [facility] Sodium Chloride 0.154 MEQ/ML Injectable Solution 1,000 mL, 2,000 ml/hr, Infuse Over: 30 minutes, Route: IV, ONCE, Priority: STAT, Dosing Weight 109.545 kg, Start date: 02/10/17 1:59:00 CDT, Duration: 1 doses or times, Stop date: 02/10/17 1:59:00 CDT Inactive 02/10/2017 [facility] Morphine 4 mg, Route: IVP, ONCE, Dosing Weight 109.545, kg, Priority: STAT, Start date: 02/10/17 1:59:00 CDT, Stop date: 02/10/17 1:59:00 CDT Inactive 02/10/2017 [facility] Ondansetron 4 mg, Route: IVP, ONCE, Dosing Weight 109.545, kg, Priority: STAT, Start date: 02/10/17 1:59:00 CDT, Stop date: 02/10/17 1:59:00 CDT Inactive 02/10/2017 [facility] Saline Flush 0.9% 10 mL, Route: IVP, Drug Form: INJ, Dosing Weight 109.545, kg, PRN, PRN Line Flush, Start date: 02/10/17 1:59:00 CDT, Duration: 30 day, Stop date: 03/12/17 1:58:00 CDTNotes: (Same as: Posiflush) No Longer Active 02/10/2017 [facility] OneTouch Ultra Test as directed In Vitro Active In Vitro 3-4 times daily [facility] 02/10/2017 Paulo Harden Motrin 600 mg oral tablet 600 mg=1 tab, PO, Q6H, PRN Pain, take with food, X 3 day, # 12 tab, 0 Refill(s) Active 01/16/2017 [facility] Methocarbamol 750 MG Oral Tablet [Robaxin] 750 mg=1 tab, PO, Q8H, PRN Spasms, X 5 day, # 15 tab, 0 Refill(s) Active 01/16/2017 [facility] tramadol hydrochloride 50 MG Oral Tablet 50 mg=1 tab, PO, Q4H, PRN Pain, X 5 day, # 24 tab, 0 Refill(s) Active 01/16/2017 [facility] Clonidine Hydrochloride 0.1 MG Oral Tablet 0.1 mg, Route: PO, Drug form: TAB, ONCE, Dosing Weight 109.545, kg, Priority: STAT, Start date: 01/16/17 3:42:00 [facility]ULAT[facility] AFFAIRS INTERN, Stop date: 01/16/17 3:42:00 REGULATORY AFFAIRS INTERN Inactive 01/16/2017 [facility] Acetaminophen 325 MG / Hydrocodone Bitartrate 5 MG Oral Tablet 1 tab, Route: PO, Drug Form: TAB, Dosing Weight 109.545, kg, ONCE, STAT, Start date: 01/16/17 3:39:00 REGULATORY AFFAIRS INTERN, Stop date: 01/16/17 3:39:00 REGULATORY AFFAIRS INTERN Inactive 01/16/2017 [facility] Robaxin 1,000 mg, 2 tab, Route: PO, Drug form: TAB, ONCE, Dosing Weight 109.545, kg, Start date: 01/16/17 2:56:00 REGULATORY AFFAIRS INTERN, Stop date: 01/16/17 2:56:00 CSTNotes: (Same as:Robaxin) Inactive 01/16/2017 [facility] Ketorolac 30 mg, Route: IM, Drug form: INJ, ONCE, Dosing Weight 109.545, kg, Priority: STAT, Start date: 01/16/17 2:55:00 REGULATORY AFFAIRS INTERN, Stop date: 01/16/17 2:55:00 REGULATORY AFFAIRS INTERN Inactive 01/16/2017 [facility] Acetaminophen 325 MG / Hydrocodone Bitartrate 5 MG Oral Tablet 1 tab, Route: PO, Drug Form: TAB, Dosing Weight 109.545, kg, ONCE, STAT, Start date: 01/16/17 0:07:00 REGULATORY AFFAIRS INTERN, Stop date: 01/16/17 0:07:00 CSTNotes: (Same as: Jenkins 325/5) Do not exceed 4gm/day of acetaminophen. Inactive 01/16/2017 [facility] tramadol hydrochloride 50 MG Oral Tablet [Ultram] 50 mg=1 tab, PO, Q4H, PRN pain, X 3 day, # 18 tab, 0 Refill(s) Active 01/01/2017 [facility] Ondansetron 4 mg, Route: IVP, Drug form: INJ, ONCE, Dosing Weight 113.636, kg, Priority: STAT, Start date: 01/01/17 0:55:00 REGULATORY AFFAIRS INTERN, Stop date: 01/01/17 0:55:00 REGULATORY AFFAIRS INTERN Inactive 01/01/2017 [facility] Morphine 4 mg, Route: IVP, ONCE, Dosing Weight 113.636, kg, Priority: STAT, Start date: 01/01/17 0:55:00 REGULATORY AFFAIRS INTERN, Stop date: 01/01/17 0:55:00 REGULATORY AFFAIRS INTERN Inactive 01/01/2017 [facility] Paxil 1 tablet in the morning Orally Active 20 MG Orally Once a day Jake 12/30/2016 Paulo Harden Levofloxacin 750 MG Oral Tablet [Levaquin] 750 mg=1 tab, PO, Q24H, X 10 day, # 10 tab, 0 Refill(s), Pharmacy: [facility] [id number] Active 12/10/2016 [facility] linezolid 600 MG Oral Tablet [Zyvox] 600 mg=1 tab, PO, Q12H, X 10 day, # 20 tab, 0 Refill(s), Pharmacy: [facility] [id number] Active 12/10/2016 [facility] Lisinopril 30 mg, 1.5 tab, Route: PO, Drug form: TAB, Daily, Dosing Weight 114.55, kg, Start date: 12/09/16 9:00:00 REGULATORY AFFAIRS INTERN, Duration: 30 day, Stop date: 01/07/17 9:00:00 CSTNotes: (Same as: Prinivil, Zestril) No Longer Active 12/09/2016 [facility] Protonix 40 mg, 1 tab, Route: PO, Drug form: ECTAB, Daily, Start date: 12/09/16 9:00:00 REGULATORY AFFAIRS INTERN, Duration: 30 day, Stop date: 01/07/17 9:00:00 CSTNotes: Tablet should not be chewed or crushed. (Same as: Protonix) No Longer Active 12/09/2016 [facility] Nexium 40 mg, Route: PO, Drug form: ECCAP, Daily, Dosing Weight 114.55, kg, Start date: 12/09/16 9:00:00 REGULATORY AFFAIRS INTERN, Duration: 30 day, Stop date: 01/07/17 9:00:00 REGULATORY AFFAIRS INTERN No Longer Active 12/09/2016 [facility] glimepiride 2 mg, 2 tab, Route: PO, Drug form: TAB, Breakfast, Dosing Weight 114.55, kg, Start date: 12/09/16 8:00:00 REGULATORY AFFAIRS INTERN, Duration: 30 day, Stop date: 01/07/17 8:00:00 CSTNotes: (Same as: Amaryl) No Longer Active 12/09/2016 [facility] insulin detemir 25 unit, 0.25 mL, Route: SUB-Q, Drug form: INJ, Q12H, Dosing Weight 114.55, kg, Start date: 12/08/16 21:00:00 REGULATORY AFFAIRS INTERN, Duration: 30 day, Stop date: 01/07/17 9:00:00 CSTNotes: Same as Levemir Do not hold insulin without contacting prescriber WASTE: F/P - Black; E - [employer] Trash Bin "single patient use only" No Longer Active 12/09/2016 [facility] Guaifenesin 600 mg, 1 tab, Route: PO, Drug form: ERTAB, Q12H, Dosing Weight 114.55, kg, Start date: 12/08/16 21:00:00 REGULATORY AFFAIRS INTERN, Duration: 30 day, Stop date: 01/07/17 9:00:00 CSTNotes: (Same as: Guaifenesin LA, Humibid L A, Mucinex) "Do Not Crush" Take medication with plenty of water. No Longer Active 12/09/2016 [facility] Lyrica 75 mg, 1 cap, Route: PO, Drug form: CAP, BID, Dosing Weight 114.55, kg, Start date: 12/08/16 17:00:00 REGULATORY AFFAIRS INTERN, Duration: 30 day, Stop date: 01/07/17 9:00:00 CSTNotes: (Same as: Lyrica) No Longer Active 12/08/2016 [facility] Nystatin [id number] UNT/ML / Triamcinolone Acetonide 1 MG/ML Topical Cream 1 appl, Route: TOP, BID, Drug form: CRM, Start date: 12/08/16 17:00:00 REGULATORY AFFAIRS INTERN, Duration: 30 day, Stop date: 01/07/17 9:00:00 CSTNotes: (nystatin- triamcinolone 649301 units/g-0.1% top CRM 60 gm ) No Longer Active 12/08/2016 [facility] Hydralazine Hydrochloride 25 MG Oral Tablet 50 mg, 1 tab, Route: PO, Drug form: TAB, TID, Dosing Weight 114.55, kg, Start date: 12/08/16 17:00:00 REGULATORY AFFAIRS INTERN, Duration: 30 day, Stop date: 01/07/17 13:00:00 CSTNotes: (Same as: Apresoline) May interfere w/enteral feedings Take With Food No Longer Active 12/08/2016 [facility] Lactulose 667 MG/ML Oral Solution 20 gm, 30 mL, Route: PO, Drug form: SYRP, Daily, Dosing Weight 114.55, kg, PRN Constipation, Start date: 12/08/16 13:28:00 REGULATORY AFFAIRS INTERN, Duration: 30 day, Stop date: 01/07/17 13:27:00 CSTNotes: (Same as:Chronulac) No Longer Active 12/08/2016 [facility] Albuterol / Ipratropium 3 mL, Route: NEB, Drug Form: SOLN, Dosing Weight 114.55, kg, RQ2H, PRN as needed for shortness of breath or wheezing, Start date: 12/08/16 13:27:00 REGULATORY AFFAIRS INTERN, Duration: 30 day, Stop date: 01/07/17 13:26:00 CSTNotes: (Same as: Duoneb) No Longer Active 12/08/2016 [facility] Hyoscyamine 0.125 mg, 1 tab, Route: PO, Drug form: TAB, Q4H, Dosing Weight 114.55, kg, PRN Spasm, Start date: 12/08/16 13:25:00 REGULATORY AFFAIRS INTERN, Duration: 30 day, Stop date: 01/07/17 13:24:00 CSTNotes: (Same as: Levsin) Take 30 min before meal No Longer Active 12/08/2016 [facility] Levaquin 750 mg, 150 mL, Route: IVPB, Drug form: SOLN, Daily, Dosing Weight 114.545, kg, Start date: 12/08/16 9:00:00 REGULATORY AFFAIRS INTERN, Duration: 30 day, Stop date: 01/06/17 9:00:00 CSTNotes: (Same as:Levaquin) No Longer Active 12/08/2016 [facility] pregabalin 75 MG Oral Capsule [Lyrica] 75 mg=1 cap, PO, BID, # 60 cap, 0 Refill(s) Active 12/08/2016 [facility] doxycycline hyclate 100 mg oral tablet 100 mg=1 tab, PO, Q12H, # 14 tab, 0 Refill(s) Active 12/08/2016 [facility] lisinopril 30 mg oral tablet 30 mg=1 tab, PO, Daily, # 30 tab, 0 Refill(s) Active 12/08/2016 [facility] Metronidazole 500 MG Oral Tablet [Flagyl] 500 mg=1 tab, PO, Q8H, # 21 tab, 0 Refill(s) No Longer Active 12/08/2016 [facility] linezolid 600 mg, 300 mL, Route: IV, Drug form: SOLN, [id number], Dosing Weight 114.545, kg, Start date: 12/08/16 3:00:00 REGULATORY AFFA[facility], Duration: 30 day, Stop date: 01/06/17 17:00:00 CSTNotes: (Same as: Zyvox) No Longer Active 12/08/2016 [facility] Enoxaparin 40 mg, 0.4 mL, Route: SUB-Q, Drug form: INJ, [id number], Dosing Weight 114.545, kg, Consider for obese patients, Start date: 12/08/16 2:00:00 [facility]FFA[facility] INTERN, Duration: 30 day, Stop date: 01/06/17 14:00:00 CSTNotes: (Same as: Lovenox) No Longer Active 12/08/2016 [facility] Saline Flush 0.9% 10 ml, Route: IVP, Drug Form: INJ, Dosing Weight 114.545, kg, PRN, PRN Line Flush, Start date: 12/08/16 1:48:00 [facility] INTER[facility], Duration: 30 day, Stop date: 01/07/17 1:47:00 CSTNotes: (Same as: BD Posiflush) No Longer Active 12/08/2016 [facility] Docusate 100 mg, 1 cap, Route: PO, Drug form: CAP, BID, Dosing Weight 114.545, kg, PRN Constipation, Start date: 12/08/16 1:48:00 [facility] INTERN, Duration: 30 day, Stop date: 01/07/17 1:47:00 CSTNotes: (Same as: Colace) (Do Not Crush) No Longer Active 12/08/2016 [facility] Ondansetron 4 mg, 2 mL, Route: IVP, Drug form: INJ, Q6H, Dosing Weight 114.545, kg, PRN Nausea & Vomiting, Start date: 12/08/16 1:48:00 [facility] INTERN, Duration: 30 day, Stop date: 01/07/17 1:47:00 CSTNotes: (Same as: Jeremiah) MEDICATION WASTE Product Size: 4 mg Product Wasted: ___ mg No Longer Active 12/08/2016 [facility] Lactated Ringers 1,000 mL 1,000 mL, Rate: 100 ml/hr, Infuse over: 10 hr, Route: IV, Dosing Weight 114.545 kg, Total Volume: 1,000, Start date: 12/08/16 1:48:00 [facility] INTERN, Duration: 30 day, Stop date: 01/07/17 1:47:00 [facility] INTERN No Longer Active 12/08/2016 [facility] Acetaminophen 650 mg, 2 tab, Route: PO, Drug form: TAB, Q4H, Dosing Weight 114.545, kg, PRN Pain 1-3/Temp > 100.4 F, Start date: 12/08/16 1:48:00 [facility] INTERN, Duration: 30 day, Stop date: 01/07/17 1:47:00 CSTNotes: Do not exceed 4 gm/day. (Same as: Tylenol) No Longer Active 12/08/2016 [facility] Acetaminophen 325 MG / Hydrocodone Bitartrate 5 MG Oral Tablet 2 tab, Route: PO, Drug Form: TAB, Dosing Weight 114.545, kg, Q4H, PRN Pain Score 7-10, Start date: 12/08/16 1:48:00 [facility] INTERN, Duration: 30 day, Stop date: 01/07/17 1:47:00 CSTNotes: (Same as: Jenkins 325/5) Do not exceed 4gm/day of acetaminophen. No Longer Active 12/08/2016 [facility] Insulin, Aspart, Human 6 unit, 0.06 mL, Route: SUB-Q, Drug form: SOLN, TID-Before Meals, Dosing Weight 114.545, kg, PRN Blood Glucose Results, Start date: 12/08/16 1:47:00 [facility] INTERN, Duration: 30 day, Stop date: 01/07/17 1:46:00 CSTNotes: Roll in palms of hands gently; Do not shake vigorously. (Same as: NovoLOG) "single patient use only" WASTE: F/P - Black; E - Municipal Trash Bin Stable for 28 days at room temperature. Expires in days from Date No Longer Active 12/08/2016 [facility] Dextrose 50% Syringe 12.5 gm, 25 mL, Route: IVP, Drug Form: INJ, Dosing Weight 114.545, kg, PRN, PRN Blood Glucose Results, Start date: 12/08/16 1:47:00 [facility] INTERN, Duration: 30 day, Stop date: 01/07/17 1:46:00 [facility]FFAIRS INTERN No Longer Active 12/08/2016 [facility] Glucagon 1 mg, Route: IM, Drug form: PDR/INJ, PRN, Dosing Weight 114.545, kg, PRN Blood Glucose Results, Start date: 12/08/16 1:47:00 [facility] INTERN, Duration: 30 day, Stop date: 01/07/17 1:46:00 [facility] INTERN No Longer Active 12/08/2016 [facility] Zofran 8 mg, Route: IVP, Drug form: INJ, ONCE, Dosing Weight 114.545, kg, Priority: STAT, Start date: 12/07/16 23:06:00 [facility] INTERN, Stop date: 12/07/16 23:06:00 [facility] INTERN Inactive 12/08/2016 [facility] Morphine 4 mg, 1 mL, Route: IV, Drug form: SOLN, ONCE, Dosing Weight 114.545, kg, Priority: STAT, Start date: 12/07/16 23:06:00 [facility]FF[facility] INTERN, Stop date: 12/07/16 23:06:00 CSTNotes: (Same as:MORPhine Sulfate) Inactive 12/08/2016 [facility] Rocephin 1 gm, Route: IV, ONCE, Dosing Weight 114.545, kg, Priority: STAT, Start date: 12/07/16 23:05:00 [facility] INTERN, Stop date: 12/07/16 23:05:00 CSTNotes: (Same As: Rocephin). Use with 100 mL NS and infuse over 30 min MEDICATION WASTE Product Size: 1000 mg Product Wasted: ___ mg Inactive 12/08/2016 [facility] Saline Flush 0.9% 10 mL, Route: IVP, Drug Form: INJ, Dosing Weight 109.091, kg, PRN, PRN Line Flush, Start date: 12/07/16 18:22:00 [facility]FF[facility] INTERN, Duration: 30 day, Stop date: 01/06/17 18:21:00 CSTNotes: (Same as: BD Posiflush) No Longer Active 12/08/2016 [facility] NovoLog Flexpen as directed 30 units Subcutaneous Active 100 UNIT/ML 30 units Subcutaneous three times a day (tid) Jake 11/25/2016 Paulo Harden RN please don't give VANCO dose RN please don't give VANCO dose, before TROUGH level is drawn, Drug form: MISC, Route: MISC, ONCE, 11/16/16 16:30:00 [facility] INTERN, Stop date: 11/16/16 16:30:00 [facility]FFAIRS INTERN No Longer Active 11/16/2016 [facility] Cephalexin 500 MG Oral Capsule [Keflex] 500 mg=1 cap, PO, BID, X 10 day, # 20 cap, 0 Refill(s), Pharmacy: [id number] Active 11/15/2016 [facility] cephalexin 250 mg oral capsule 500 mg=2 cap, PO, [id number], 0 Refill(s) Active 11/15/2016 [facility] hyoscyamine 0.125 mg sublingual tablet 0.125 mg=1 tab, PO, Q4H, PRN Spasm, 0 Refill(s) Active 11/15/2016 [facility] Cephalexin 500 mg, 2 cap, Route: PO, Drug form: CAP, [id number], Dosing Weight 109.091, kg, Start date: 11/15/16 14:00:00 [facility] INTERN, Duration: 10 day, Stop date: 11/25/16 2:00:00 CSTNotes: Take on empty stomach. (Same As: Keflex) Inactive 11/15/2016 [facility] Vancomycin 2 gm, 500 mL, 250 ml/hr, Route: IVPB, Drug Form: SOLN, Dosing Weight 109.091, kg, Daily, Start date: 11/14/16 17:00:00 [facility] INTERN, Stop date: 11/20/16 17:00:00 [facility] AFFAIRS INTERN, Pharmacy to doseNotes: TIME CRITICAL MEDICATION Same as: Vancocin Infusion rate 2001 mg: infuse over 2.5 hours No Longer Active 11/14/2016 [facility] Ceftriaxone 1 gm, Route: IVPB, [id number], Dosing Weight 109.091, kg, Start date: 11/14/16 16:00:00 [facility]FFA[facility] INTERN, Duration: 30 day, Stop date: 12/13/16 16:00:00 CSTNotes: (Same As: Rocephin). Use with 100 mL NS and infuse over 30 min MEDICATION WASTE Product Size: 1000 mg Product Wasted: ___ mg No Longer Active 11/14/2016 [facility] Anaspaz 0.125 mg, 1 tab, Route: PO, Drug form: TAB, Q4H, Dosing Weight 109.091, kg, PRN Spasm, Start date: 11/14/16 12:51:00 [facility] INTERN, Duration: 30 day, Stop date: 12/14/16 12:50:00 CSTNotes: (Same as: Levsin) Take 30 min before meal No Longer Active 11/14/2016 [facility] Acetaminophen 325 MG / Hydrocodone Bitartrate 5 MG Oral Tablet [Jenkins 5/325] 1 tab, Route: PO, Drug Form: TAB, Dosing Weight 109.091, kg, Q6H, PRN Pain Score 1-3, Start date: 11/14/16 12:50:00 [facility]FFAIRS INTERN, Duration: 30 day, Stop date: 12/14/16 12:49:00 CSTNotes: (Same as: Jenkins 325/5) Do not exceed 4gm/day of acetaminophen. No Longer Active 11/14/2016 [facility] Clonazepam 0.5 mg, 1 tab, Route: PO, Drug form: TAB, BID, Dosing Weight 109.091, kg, Start date: 11/14/16 9:00:00 [facility]FF[facility] INTERN, Duration: 30 day, Stop date: 12/13/16 17:00:00 CSTNotes: (Same As: KlonoPIN) No Longer Active 11/14/2016 [facility] Nystatin [id number] UNT/ML / Triamcinolone Acetonide 1 MG/ML Topical Cream 1 appl, Route: TOP, BID, Drug form: CRM, Start date: 11/13/16 9:00:00 [facility]FF[facility] INTERN, Duration: 30 day, Stop date: 12/12/16 17:00:00 CSTNotes: For External Use Only (Same as:Mycolog II cream) No Longer Active 11/13/2016 [facility] Hydralazine Hydrochloride 25 MG Oral Tablet 50 mg, 2 tab, Route: PO, Drug form: TAB, TID, Dosing Weight 109.091, kg, Start date: 11/13/16 9:00:00 [facility] INTERN, Duration: 30 day, Stop date: 12/12/16 17:00:00 [facility] INTERN Inactive 11/13/2016 [facility] glimepiride 2 mg, 2 tab, Route: PO, Drug form: TAB, Breakfast, Dosing Weight 109.091, kg, Start date: 11/13/16 9:00:00 [facility] AFFAIRS INTERN, Duration: 30 day, Stop date: 12/13/16 8:00:00 CSTNotes: (Same as: Amaryl) No Longer Active 11/13/2016 [facility] Furosemide 40 MG Oral Tablet [Lasix] 40 mg, 1 tab, Route: PO, Drug form: TAB, BID, Dosing Weight 109.091, kg, Start date: 11/13/16 9:00:00 [facility]FF[facility]IRS INTERN, Duration: 30 day, Stop date: 12/12/16 17:00:00 CSTNotes: (Same as: Lasix) May cause GI upset. Give with food or milk. No Longer Active 11/13/2016 [facility] Nexium 40 mg, Route: PO, Drug form: ECCAP, Daily, Dosing Weight 109.091, kg, Start date: 11/13/16 9:00:00 [facility]FFAIRS INTERN, Duration: 30 day, Stop date: 12/12/16 9:00:00 [facility]FF[facility]IRS INTERN Inactive 11/13/2016 [facility] Dicyclomine 20 mg, 1 tab, Route: PO, Drug form: TAB, QID, Dosing Weight 109.091, kg, Start date: 11/13/16 9:00:00 [facility] AFFAIRS INTERN, Duration: 30 day, Stop date: 12/12/16 21:00:00 CSTNotes: (Same as: Bentyl) Inactive 11/13/2016 [facility] Clonazepam 0.5 mg, 1 tab, Route: PO, Drug form: TAB, TID, Dosing Weight 109.091, kg, Start date: 11/13/16 9:00:00 [facility] AFFAIRS INTERN, Duration: 30 day, Stop date: 12/12/16 21:00:00 CSTNotes: (Same As: KlonoPIN) Inactive 11/13/2016 [facility] Lisinopril 30 mg, 1.5 tab, Route: PO, Drug form: TAB, Daily, Dosing Weight 109.091, kg, Start date: 11/13/16 9:00:00 [facility] AFFAIRS INTERN, Duration: 30 day, Stop date: 12/12/16 9:00:00 CSTNotes: (Same as: Prinivil Zestril) No Longer Active 11/13/2016 [facility] Insulin, Aspart, Human 3 unit, 0.03 mL, Route: SUB-Q, Drug form: SOLN, TID-Before Meals, Dosing Weight 109.091, kg, PRN Blood Glucose Results, Start date: 11/13/16 8:58:00 [facility] AFFAIRS INTERN, Duration: 30 day, Stop date: 12/13/16 8:57:00 CSTNotes: Roll in palms of hands gently; Do not shake vigorously. (Same as: NovoLOG) "single patient use only" WASTE: F/P - Black; E - Municipal Trash Bin Stable for 28 days at room temperature. Expires in days from Date No Longer Active 11/13/2016 [facility] Glucagon 1 mg, Route: IM, Drug form: PDR/INJ, PRN, Dosing Weight 109.091, kg, PRN Blood Glucose Results, Start date: 11/13/16 8:58:00 [facility] AFFAIRS INTERN, Duration: 30 day, Stop date: 12/13/16 8:57:00 [facility]AT[facility] AFFAIRS INTERN No Longer Active 11/13/2016 [facility] Dextrose 50% Syringe 25 gm, 50 mL, Route: IVP, Drug Form: INJ, Dosing Weight 109.091, kg, PRN, PRN Blood Glucose Results, Start date: 11/13/16 8:58:00 [facility]UL[facility] AFFAIRS INTERN, Duration: 30 day, Stop date: 12/13/16 8:57:00 [facility] AFFAIRS INTERN No Longer Active 11/13/2016 [facility] Clonidine Hydrochloride 0.1 MG Oral Tablet 0.1 mg, 1 tab, Route: PO, Drug form: TAB, Q8H, Dosing Weight 109.091, kg, PRN Elevated BP, Start date: 11/13/16 8:55:00 [facility] AFF[facility]IRS INTERN, Duration: 30 day, Stop date: 12/13/16 8:54:00 REGULATORY AFFAIRS INTERN, sbp> 170Notes: (Same As: Catapres) No Longer Active 11/13/2016 [facility] Protonix 40 mg, 1 tab, Route: PO, Drug form: ECTAB, Daily, Start date: 11/12/16 9:00:00 [facility]ULAT[facility] AFFAIRS INTERN, Duration: 30 day, Stop date: 12/11/16 9:00:00 CSTNotes: Tablet should not be chewed or crushed. (Same as: Protonix) No Longer Active 11/12/2016 [facility] Levemir 20 unit, 0.2 mL, Route: SUB-Q, Drug form: INJ, Daily, Dosing Weight 109.091, kg, Start date: 11/12/16 9:00:00 [facility]AT[facility] AFFAIRS INTERN, Duration: 30 day, Stop date: 12/11/16 9:00:00 CSTNotes: Same as Levemir Do not hold insulin without contacting prescriber WASTE: F/P - Black; E - [employer] Trash Bin "single patient use only" No Longer Active 11/12/2016 [facility] Nexium 40 mg, Route: PO, Drug form: ECCAP, Daily, Dosing Weight 109.091, kg, Start date: 11/12/16 9:00:00 [facility]ULATORY AFFAIRS INTERN, Duration: 30 day, Stop date: 12/11/16 9:00:00 [facility] AFFAIRS INTERN Inactive 11/12/2016 [facility] heparin 5,000 unit, 1 mL, Route: SUB-Q, Drug form: INJ, Q8H, Dosing Weight 109.091, kg, Start date: 11/12/16 8:00:00 REGULATORY AFFAIRS INTERN, Duration: 30 day, Stop date: 12/12/16 0:00:00 CSTNotes: porcine heparin No Longer Active 11/12/2016 [facility] Hydralazine Hydrochloride 25 MG Oral Tablet 25 mg, 1 tab, Route: PO, Drug form: TAB, Q8H, Dosing Weight 109.091, kg, Start date: 11/12/16 8:00:00 [facility] AFFAIRS INTERN, Duration: 30 day, Stop date: 12/12/16 0:00:00 CSTNotes: (Same as: Apresoline) May interfere w/enteral feedings Take With Food. Inactive 11/12/2016 [facility] Zofran 4 mg, 2 mL, Route: IVP, Drug form: INJ, Q8H, Dosing Weight 109.091, kg, PRN Nausea, Start date: 11/12/16 6:52:00 [facility]AT[facility] AFFAIRS INTERN, Duration: 30 day, Stop date: 12/12/16 6:51:00 CSTNotes: (Same as: Zofran) MEDICATION WASTE Product Size: 4 mg Product Wasted: ___ mg No Longer Active 11/12/2016 [facility] Morphine 4 mg, 1 mL, Route: IVP, Drug form: SOLN, Q4H, Dosing Weight 109.091, kg, PRN Pain Score 7-10, Start date: 11/12/16 6:52:00 [facility]ULATORY AFFAIRS INTERN, Duration: 30 day, Stop date: 12/12/16 6:51:00 CSTNotes: (Same as:MORPhine Sulfate) No Longer Active 11/12/2016 [facility] Zofran 4 mg, Route: IVP, Drug form: INJ, ONCE, Dosing Weight 109.091, kg, Start date: 11/12/16 6:44:00 REGULATORY AFFAIRS INTERN, Stop date: 11/12/16 6:44:00 [facility]ATORY AFFAIRS INTERN Inactive 11/12/2016 [facility] Morphine 4 mg, Route: IVP, ONCE, Dosing Weight 109.091, kg, PRN Chest Pain, Start date: 11/12/16 6:41:00 [facility]ATORY AFFAIRS INTERN Inactive 11/12/2016 [facility] cefepime 1 gm, Route: IVPB, [id number], Dosing Weight 109.091, kg, (CrCl 30 - 49 ml/min), Start date: 11/12/16 6:00:00 [facility]ULATORY AFFAIRS INTERN, Duration: 30 day, Stop date: 12/11/16 18:00:00 CSTNotes: (Same As: Maxipime) MEDICATION WASTE Product Size: 1000 mg Product Wasted: ___ mg No Longer Active 11/12/2016 [facility] Insulin, Aspart, Human 15 unit, 0.15 mL, Route: SUB-Q, Drug form: SOLN, TID-Before Meals, Dosing Weight 109.091, kg, PRN Blood Glucose Results, Start date: 11/12/16 5:14:00 REGULATORY AFFAIRS INTERN, Duration: 30 day, Stop date: 12/12/16 5:13:00 CSTNotes: Roll in palms of hands gently; Do not shake vigorously. (Same as: NovoLOG) "single patient use only" WASTE: F/P - Black; E - Municipal Trash Bin Stable for 28 days at room temperature. Expires in days from Date No Longer Active 11/12/2016 [facility] Dextrose 50% Syringe 12.5 gm, 25 mL, Route: IVP, Drug Form: INJ, Dosing Weight 109.091, kg, PRN, PRN Blood Glucose Results, Start date: 11/12/16 5:14:00 [facility]ATORY AFFAIRS INTERN, Duration: 30 day, Stop date: 12/12/16 5:13:00 REGULATORY AFFAIRS INTERN No Longer Active 11/12/2016 [facility] Glucagon 1 mg, Route: IM, Drug form: PDR/INJ, PRN, Dosing Weight 109.091, kg, PRN Blood Glucose Results, Start date: 11/12/16 5:14:00 [facility]ULATORY AFFAIRS INTERN, Duration: 30 day, Stop date: 12/12/16 5:13:00 REGULATORY AFFAIRS INTERN No Longer Active 11/12/2016 [facility] linezolid 600 mg, 300 mL, Route: IV, Drug form: SOLN, ONCE, Dosing Weight 109.091, kg, Start date: 11/12/16 4:07:00 REGULATORY AFFAIRS INTERN, Stop date: 11/12/16 4:07:00 CSTNotes: (Same as: Zyvox) Inactive 11/12/2016 [facility] Vancomycin 1,000 mg, Route: IVPB, Drug form: INJ, ONCE, Dosing Weight 109.091, kg, Priority: STAT, Start date: 11/12/16 3:36:00 REGULATORY AFFAIRS INTERN, Stop date: 11/12/16 3:36:00 REGULATORY AFFAIRS INTERN, TIME CRITICAL MEDICATION Inactive 11/12/2016 [facility] Piperacillin / tazobactam 3.375 gm, Route: IVPB, Drug form: PDR/INJ, ONCE, Dosing Weight 109.091, kg, Priority: STAT, Start date: 11/12/16 3:36:00 REGULATORY AFFAIRS INTERN, Stop date: 11/12/16 3:36:00 REGULATORY AFFAIRS INTERN Inactive 11/12/2016 [facility] Saline Flush 0.9% 10 mL, Route: IVP, Drug Form: INJ, Dosing Weight 116.364, kg, PRN, PRN Line Flush, Start date: 11/11/16 19:45:00 REGULATORY AFFAIRS INTERN, Duration: 30 day, Stop date: 12/11/16 19:44:00 CSTNotes: (Same as: BD Posiflush) No Longer Active 11/12/2016 [facility] Saline Flush 0.9% 10 mL, Route: IVP, Drug Form: INJ, Dosing Weight 116.364, kg, PRN, PRN Line Flush, Start date: 11/11/16 19:39:00 REGULATORY AFFAIRS INTERN, Duration: 30 day, Stop date: 12/11/16 19:38:00 REGULATORY AFFAIRS INTERN Inactive 11/12/2016 [facility] Furosemide 40 MG Oral Tablet [Lasix] 40 mg=1 tab, PO, BID, # 90 tab, 0 Refill(s), other Active 10/17/2016 [facility] insulin detemir 100 units/mL subcutaneous solution 25 unit, SUB-Q, Q12H, 0 Refill(s) Active 10/17/2016 [facility] meropenem 500 mg intravenous injection 500 mg, IV, Q8H, X 3 day, # 9 vial, 0 Refill(s) Active 10/17/2016 [facility] tramadol hydrochloride 50 MG Oral Tablet 50 mg=1 tab, PO, Q12H, PRN Pain Score 6-10, 0 Refill(s) Active 10/17/2016 [facility] Lactulose 667 MG/ML Oral Solution 20 gm=30 mL, PO, Daily, PRN Constipation, 0 Refill(s) Active 10/17/2016 [facility] Hydralazine Hydrochloride 25 MG Oral Tablet 50 mg=2 tab, PO, TID, 0 Refill(s) Active 10/17/2016 [facility] guaiFENesin 600 mg oral tablet, extended release 600 mg=1 tab, PO, Q12H, 0 Refill(s) Active 10/17/2016 [facility] Clonidine Hydrochloride 0.1 MG Oral Tablet 0.1 mg=1 tab, PO, Q8H, PRN Hypertension, 0 Refill(s) Active 10/17/2016 [facility] Clonazepam 0.5 MG Oral Tablet 0.5 mg=1 tab, PO, TID, 0 Refill(s) Active 10/17/2016 [facility] Albuterol / Ipratropium 3 mL, NEB, RQ2H, PRN as needed for shortness of breath or wheezing, 0 Refill(s) Active 10/17/2016 [facility] Acetaminophen 325 MG / Oxycodone Hydrochloride 5 MG Oral Tablet [Percocet 5/325] 1 tab, PO, Q12H, PRN Pain Score 6-10, 0 Refill(s) Active 10/17/2016 [facility] Acetaminophen 325 MG / Oxycodone Hydrochloride 5 MG Oral Tablet [Percocet 5/325] 1 tab, Route: PO, Drug Form: TAB, Dosing Weight 116.364, kg, Q12H, PRN Pain Score 6-10, Start date: 10/17/16 10:34:00 [facility]ULATORY AFFAIRS INTERN, Duration: 30 day, Stop date: 11/16/16 10:33:00 CSTNotes: Do not exceed 4gm/day of acetaminophen. (Same as: Percocet-5/325) Inactive 10/17/2016 [facility] Ativan 1 mg, 0.5 mL, Route: IVP, Drug form: INJ, ONCE, Dosing Weight 116.364, kg, PRN Anxiety, Priority: NOW, Start date: 10/17/16 9:24:00 CSTNotes: (Same as: Ativan) Inactive 10/17/2016 [facility] Lasix 60 mg, 6 mL, Route: IVP, Drug form: INJ, Daily, Dosing Weight 116.364, kg, Priority: NOW, Start date: 10/16/16 10:20:00 REGULATORY AFFAIRS INTERN, Stop date: 11/15/16 9:00:00 CSTNotes: (Same as: Lasix) MEDICATION WASTE Product Size: 40 mg Product Wasted: _20__ mg No Longer Active 10/16/2016 [facility] Lasix 60 mg, 6 mL, Route: IVP, Drug form: INJ, ONCE, Dosing Weight 116.364, kg, Start date: 10/15/16 14:09:00 REGULATORY AFFAIRS INTERN, Stop date: 10/15/16 14:09:00 CSTNotes: (Same as: Lasix) MEDICATION WASTE Product Size: 40 mg Product Wasted: ___ mg Inactive 10/15/2016 [facility] Lasix 40 mg, 4 mL, Route: IVP, Drug form: INJ, Daily, Dosing Weight 116.364, kg, Priority: Routine, Start date: 10/14/16 7:00:00 [facility]ULATORY AFFAIRS INTERN, Duration: 30 day, Stop date: 11/12/16 9:00:00 CSTNotes: (Same as: Lasix) MEDICATION WASTE Product Size: 40 mg Product Wasted: ___ mg No Longer Active 10/14/2016 [facility] Merrem 500 mg, Route: IVPB, [id number], Dosing Weight 116.364, kg, CrCL >=50ml/min, Extended infusion, infuse over 3 hours, Start date: 10/14/16 0:00:00 REGULATORY AFFAIRS INTERN, Stop date: 11/12/16 22:00:00 CSTNotes: Same as Merrem MEDICATION WASTE Product Size: 500 mg Product Wasted: ___ mg No Longer Active 10/14/2016 [facility] Prednisone 40 mg, 2 tab, Route: PO, Drug form: TAB, Daily, Dosing Weight 116.364, kg, Start date: 10/13/16 9:00:00 REGULATORY AFFAIRS INTERN, Stop date: 11/11/16 9:00:00 CSTNotes: Take with food. No Longer Active 10/13/2016 [facility] vancomycin 1.75 gm, 500 mL, Route: IVPB, Drug form: SOLN, [id number], Start date: 10/13/16 4:00:00 REGULATORY AFFAIRS INTERN, Duration: 30 day, Stop date: 11/11/16 4:00:00 CSTNotes: TIME CRITICAL MEDICATION Same as: Vancocin No Longer Active 10/13/2016 [facility] heparin 5,000 unit, 1 mL, Route: SUB-Q, Drug form: INJ, Q12H, Dosing Weight 116.364, kg, Start date: 10/12/16 21:00:00 REGULATORY AFFAIRS INTERN, Duration: 30 day, Stop date: 11/11/16 9:00:00 CSTNotes: porcine heparin No Longer Active 10/13/2016 [facility] Insulin, Aspart, Human 4 unit, 0.04 mL, Route: SUB-Q, Drug form: SOLN, Bedtime, Dosing Weight 116.364, kg, PRN Blood Glucose Results, Start date: 10/12/16 19:11:00 [facility]ULATORY AFFAIRS INTERN, Duration: 30 day, Stop date: 11/11/16 19:10:00 CSTNotes: Roll in palms of hands gently; Do not shake vigorously. (Same as: NovoLOG) "single patient use only" WASTE: F/P - Black; E - Municipal Trash Bin Stable for 28 days at room temperature. Expires in days from Date No Longer Active 10/13/2016 [facility] Dextrose 50% Syringe 12.5 gm, 25 mL, Route: IVP, Drug Form: INJ, Dosing Weight 116.364, kg, PRN, PRN Blood Glucose Results, Start date: 10/12/16 19:11:00 REGULATORY AFFAIRS INTERN, Duration: 30 day, Stop date: 11/11/16 19:10:00 REGULATORY AFFAIRS INTERN No Longer Active 10/13/2016 [facility] Glucagon 1 mg, Route: IM, Drug form: PDR/INJ, PRN, Dosing Weight 116.364, kg, PRN Blood Glucose Results, Start date: 10/12/16 19:11:00 [facility]ULATORY AFFAIRS INTERN, Duration: 30 day, Stop date: 11/11/16 19:10:00 REGULATORY AFFAIRS INTERN No Longer Active 10/13/2016 [facility] Tramadol 50 mg, 1 tab, Route: PO, Drug form: TAB, Q12H, Dosing Weight 116.364, kg, PRN Pain Score 6-10, Start date: 10/12/16 9:36:00 REGULATORY AFFAIRS INTERN, Stop date: 11/11/16 9:35:00 CSTNotes: Not to exceed 400mg/day. (Same As: Ultram) No Longer Active 10/12/2016 [facility] Vanco Trough due 30 mins BEFORE the AM dose on 10/12/16 Vanco Trough due 30 mins BEFORE the AM dose on 10/12/16, reminder, Drug form: MISC, Route: MISC, ONCE, 10/12/16 9:30:00 REGULATORY AFFAIRS INTERN, Stop date: 10/12/16 9:30:00 REGULATORY AFFAIRS INTERN Inactive 10/12/2016 [facility] Levemir 14 unit, 0.14 mL, Route: SUB-Q, Drug form: INJ, ONCE, Dosing Weight 116.364, kg, Start date: 10/11/16 21:29:00 REGULATORY AFFAIRS INTERN, Stop date: 10/11/16 21:29:00 CSTNotes: Same as Levemir Do not hold insulin without con tacting prescriber WASTE: F/P - Black; E - Municipal Trash Bin "single patient use only" Inactive 10/12/2016 [facility] vancomycin 1.25 gm, 250 mL, Route: IVPB, Drug form: INJ, [id number], Start date: 10/10/16 22:00:00 [facility]ULATORY AFFAIRS INTERN, Duration: 30 day, Stop date: 11/09/16 11:00:00 CSTNotes: TIME CRITICAL MEDICATION Same as: Vancocin-NS (premi xed) Infusion rate 2001 mg: infuse over 2.5 hours No Longer Active 10/11/2016 [facility] Mucinex 600 mg, 1 tab, Route: PO, Drug form: ERTAB, Q12H, Dosing Weight 116.364, kg, Start date: 10/10/16 21:00:00 REGULATORY AFFAIRS INTERN, Duration: 30 day, Stop date: 11/09/16 9:00:00 CSTNotes: (Same as: Guaifenesin [place], Humibid [place], Mucinex) "Do Not Crush" Take medication with plenty of water. No Longer Active 10/11/2016 [facility] Acetylcysteine 100 MG/ML Inhalant Solution 200 mg, 2 ml, Route: NEB, Drug Form: SOLN, Dosing Weight 116.364, kg, RQID, Administer with albuterol, Start date: 10/10/16 11:00:00 [facility] INTERN, Duration: 30 day, Stop date: 11/09/16 7:00:00 CSTNotes: WASTE: F/P - Black; E - [facility] Trash [facility] No Longer Active 10/10/2016 [facility] Clonazepam 0.5 mg, 1 tab, Route: PO, Drug form: TAB, TID, Dosing Weight 116.364, kg, Start date: 10/10/16 9:00:00 [facility] INTERN, Duration: 30 day, Stop date: 11/08/16 17:00:00 CSTNotes: (Same As: KlonoPIN) No Longer Active 10/10/2016 [facility] Vancomycin Pharmacy Dosing Vancomycin Pharmacy Dosing, 1 dose, Drug form: MISC, Route: MISC, Daily, 10/09/16 9:00:00 [facility] INTERN, Duration: 30 day, Stop date: 11/07/16 9:00:00 [facility] AFFAIRS INTERN Inactive 10/09/2016 [facility] pneumococcal capsular polysaccharide type 1 vaccine / pneumococcal capsular polysaccharide type 10A vaccine / pneumococcal capsular polysaccharide type 11A vaccine / pneumococcal capsular polysaccharide type 12F vaccine / pneumococcal capsular polysacchar 0.5 mL, Route: IM, Drug Form: INJ, Daily, Start date: 10/09/16 9:00:00 [facility]FFA[facility] INTERN, Duration: 1 doses or times, Stop date: 10/09/16 9:00:00 CSTNotes: (Same as: Pneumovax 23) Refrigerate Inactive 10/09/2016 [facility] Zosyn + sodium chloride 0.9% 100 ml ADV 100 mL 3.375 gm, Route: IVPB, ABXQ8H, Dosing Weight 116.364, kg, CrCl >=20 ml/min infuse over 4 hours, Start date: 10/09/16 9:00:00 [facility] INTERN, Duration: 30 day, Stop date: 11/08/16 1:00:00 CSTNotes: (Same as: Zosyn) Dosing based on Piperacillin component No Longer Active 10/09/2016 [facility] Zosyn 3.375 gm, Route: IVPB, ABXQ8H, Dosing Weight 116.364, kg, CrCl >=20 ml/min infuse over 4 hours, Start date: 10/09/16 8:00:00 [facility] AFFAIRS INTERN, Duration: 30 day, Stop date: 11/08/16 2:00:00 CSTNotes: (Same as: Zosyn) Dosing based on Piperacillin component Inactive 10/09/2016 [facility] Vancomycin 1 ea, Route: MISC, Dosing Weight 116.364, kg, ONCALL, Start date: 10/09/16 8:00:00 REGULATORY AFFAIRS INTERN, Duration: 1 doses or times, Pharmacy to dose Inactive 10/09/2016 [facility] 24 HR Nifedipine 60 MG Extended Release Tablet 30 mg, 1 tab, Route: PO, Drug form: ERTAB, Daily, Dosing Weight 116.364, kg, Start date: 10/08/16 9:00:00 REGULATORY AFFAIRS INTERN, Stop date: 11/06/16 9:00:00 CSTNotes: (Same as: Procardia XL) "Do Not Crush" "Avoid grapefruit and grapefruit juice" No Longer Active 10/08/2016 [facility] Keflex 500 mg, 2 cap, Route: PO, Drug form: CAP, Q6H, Dosing Weight 116.364, kg, Start date: 10/07/16 18:00:00 REGULATORY AFFAIRS INTERN, Duration: 30 day, Stop date: 11/06/16 12:00:00 CSTNotes: Take on empty stomach. (Same As: Keflex) No Longer Active 10/08/2016 [facility] Metoclopramide 10 MG Oral Tablet [Reglan] 5 mg, 1 tab, Route: PO, Drug form: TAB, Before Meals & Bedtime, Dosing Weight 116.364, kg, Start date: 10/07/16 16:30:00 REGULATORY AFFAIRS INTERN, Stop date: 11/06/16 11:30:00 CSTNotes: (Same as: Reglan) Take 30 min before meals No Longer Active 10/07/2016 [facility] Acetaminophen 325 MG / Hydrocodone Bitartrate 10 MG Oral Tablet [Jenkins 10/325] 1 tab, Route: PO, Drug Form: TAB, Dosing Weight 116.364, kg, Q4H, PRN Pain Score 7-10, Start date: 10/07/16 9:26:00 REGULATORY AFFAIRS INTERN, Duration: 30 day, Stop date: 11/06/16 9:25:00 CSTNotes: Do not exceed 4gm/day of acetaminophen. (Same as: Jenkins 325/10) No Longer Active 10/07/2016 [facility] Hydralazine Hydrochloride 25 MG Oral Tablet 50 mg, 2 tab, Route: PO, Drug form: TAB, TID, Dosing Weight 116.364, kg, Start date: 10/07/16 9:00:00 REGULATORY AFFAIRS INTERN, Duration: 30 day, Stop date: 11/05/16 17:00:00 CSTNotes: (Same as: Apresoline) May interfere w/enteral feedings Take With Food. No Longer Active 10/07/2016 [facility] Albuterol / Ipratropium 3 mL, Route: NEB, Drug Form: SOLN, Dosing Weight 116.364, kg, RQ2H, PRN as needed for shortness of breath or wheezing, Start date: 10/06/16 9:07:00 REGULATORY AFFAIRS INTERN, Duration: 30 day, Stop date: 11/05/16 9:06:00 CSTNotes: (Same as: Duoneb) No Longer Active 10/06/2016 [facility] Hydrochlorothiazide 25 mg, 1 tab, Route: PO, Drug form: TAB, Daily, Dosing Weight 116.364, kg, Start date: 10/06/16 9:00:00 REGULATORY AFFAIRS INTERN, Duration: 30 day, Stop date: 11/04/16 9:00:00 CSTNotes: (Same as: Hydrodiuril) With food. No Longer Active 10/06/2016 [facility] Levemir 25 unit, 0.25 mL, Route: SUB-Q, Drug form: INJ, Q12H, Dosing Weight 116.364, kg, Start date: 10/05/16 9:00:00 REGULATORY AFFAIRS INTERN, Stop date: 11/03/16 21:00:00 CSTNotes: Same as Levemir Do not hold insulin without cont acting prescriber WASTE: F/P - Black; E - Municipal Trash Bin "single patient use only" No Longer Active 10/05/2016 [facility] Lisinopril 40 mg, 2 tab, Route: PO, Drug form: TAB, Daily, Dosing Weight 116.364, kg, Start date: 10/05/16 9:00:00 REGULATORY AFFAIRS INTERN, Duration: 30 day, Stop date: 11/03/16 9:00:00 CSTNotes: (Same as: Prinivil, Zestril) No Longer Active 10/05/2016 [facility] Dilaudid 0.5 mg, 0.5 mL, Route: IVP, Drug form: INJ, Q3H, Dosing Weight 116.364, kg, PRN Pain Score 7-10, Start date: 10/05/16 8:41:00 REGULATORY AFFAIRS INTERN, Duration: 30 day, Stop date: 11/04/16 8:40:00 REGULATORY AFFAIRS INTERN No Longer Active 10/05/2016 [facility] Insulin, Aspart, Human 4 unit, 0.04 mL, Route: SUB-Q, Drug form: SOLN, Bedtime, Dosing Weight 116.364, kg, PRN Blood Glucose Results, Start date: 10/04/16 23:14:00 REGULATORY AFFAIRS INTERN, Duration: 30 day, Stop date: 11/03/16 23:13:00 CSTNotes: Roll in palms of hands gently; Do not shake vigorously. (Same as: NovoLOG) "single patient use only" WASTE: F/P - Black; E - Municipal Trash Bin Stable for 28 days at room temperature. Expires in days from Date No Longer Active 10/05/2016 [facility] Clonidine 0.1 mg, 1 tab, Route: PO, Drug form: TAB, Q8H, Dosing Weight 116.364, kg, PRN Hypertension, Start date: 10/04/16 14:58:00 REGULATORY AFFAIRS INTERN, Duration: 30 day, Stop date: 11/03/16 14:57:00 CSTNotes: (Same As: Catapres) No Longer Active 10/04/2016 [facility] Milk of Magnesia 30 ml, Route: PO, Drug Form: SUSP, Dosing Weight 116.364, kg, Q6H, PRN Constipation, Start date: 10/04/16 14:57:00 REGULATORY AFFAIRS INTERN, Duration: 30 day, Stop date: 11/03/16 14:56:00 CSTNotes: (Same as: Milk of Magn esia, MOM) No Longer Active 10/04/2016 [facility] Lactulose 20 gm, 30 ml, Route: PO, Drug Form: SYRP, Dosing Weight 116.364, kg, Daily, PRN Constipation, Start date: 10/04/16 14:57:00 REGULATORY AFFAIRS INTERN, Duration: 30 day, Stop date: 11/03/16 14:56:00 CSTNotes: (Same as:Chronulac) No Longer Active 10/04/2016 [facility] Hydralazine 10 mg, 0.5 mL, Route: IV, Drug form: INJ, ONCE, Dosing Weight 116.364, kg, Start date: 10/04/16 12:39:00 REGULATORY AFFAIRS INTERN, Stop date: 10/04/16 12:39:00 CSTNotes: (Same as: Apresoline) Push over 5 minutes Inactive 10/04/2016 [facility] glimepiride 2 mg, 2 tab, Route: PO, Drug form: TAB, Breakfast, Dosing Weight 116.364, kg, Start date: 10/04/16 8:00:00 REGULATORY AFFAIRS INTERN, Duration: 30 day, Stop date: 11/02/16 8:00:00 CSTNotes: (Same as: Amaryl) No Longer Active 10/04/2016 [facility] Levemir 60 unit, 0.6 mL, Route: SUB-Q, Drug form: INJ, Bedtime, Dosing Weight 116.364, kg, Start date: 10/03/16 21:00:00 REGULATORY AFFAIRS INTERN, Duration: 30 day, Stop date: 11/01/16 21:00:00 CSTNotes: Same as Levemir Do not hold insulin without contacting prescriber WASTE: F/P - Black; E - Municipal Trash Bin "single patient use only" No Longer Active 10/04/2016 [facility] pantoprazole 40 mg, 1 tab, Route: PO, Drug form: ECTAB, Before Dinner, Dosing Weight 116.364, kg, Start date: 10/03/16 16:30:00 REGULATORY AFFAIRS INTERN, Duration: 30 day, Stop date: 11/01/16 16:30:00 CSTNotes: Tablet should not be c hewed or crushed. (Same as: Protonix) No Longer Active 10/03/2016 [facility] Cefazolin 1 gm, Route: IVPB, ABXQ8H, Dosing Weight 116.364, kg, Start date: 10/03/16 13:00:00 REGULATORY AFFAIRS INTERN, Duration: 30 day, Stop date: 11/02/16 5:00:00 CSTNotes: (Same As: Elisa Schofield) MEDICATION WASTE Product Size: 1000 mg Product Wasted: ___ mg No Longer Active 10/03/2016 [facility] Humalog 20 unit, Route: SUB-Q, Drug form: SOLN, TID-Before Meals, Dosing Weight 116.364, kg, Start date: 10/03/16 11:30:00 REGULATORY AFFAIRS INTERN, Duration: 30 day, Stop date: 11/02/16 7:30:00 REGULATORY AFFAIRS INTERN Inactive 10/03/2016 [facility] NovoLOG FlexPen 10 unit, 0.1 mL, Route: SUB-Q, Drug form: SOLN, TID-Before Meals, Start date: 10/03/16 11:30:00 REGULATORY AFFAIRS INTERN, Stop date: 11/02/16 7:30:00 CSTNotes: Roll in palms of hands gently; Do not shake vigorously. (Same as: NovoLOG) "single patient use only" WASTE: F/P - Black; E - Municipal Trash Bin Stable for 28 days at room temperature. Expires in days from Date No Longer Active 10/03/2016 [facility] Dicyclomine 20 mg, 1 tab, Route: PO, Drug form: TAB, QID, Dosing Weight 116.364, kg, Start date: 10/03/16 9:00:00 REGULATORY AFFAIRS INTERN, Duration: 30 day, Stop date: 11/01/16 21:00:00 CSTNotes: (Same as: Bentyl) No Longer Active 10/03/2016 [facility] Nystatin 078474 UNT/ML / Triamcinolone Acetonide 1 MG/ML Topical Cream 1 appl, Route: TOP, BID, Drug form: CRM, Start date: 10/03/16 9:00:00 REGULATORY AFFAIRS INTERN, Duration: 30 day, Stop date: 11/01/16 17:00:00 CSTNotes: (nystatin- triamcinolone 135359 units/g-0.1% top CRM 60 gm ) No Longer Active 10/03/2016 [facility] Lisinopril 30 mg, 1.5 tab, Route: PO, Drug form: TAB, Daily, Dosing Weight 116.364, kg, Start date: 10/03/16 9:00:00 REGULATORY AFFAIRS INTERN, Duration: 30 day, Stop date: 11/01/16 9:00:00 CSTNotes: (Same as: Prinivil, Zestril) No Longer Active 10/03/2016 [facility] gabapentin 300 MG Oral Capsule 300 mg, 1 cap, Route: PO, Drug form: CAP, BID, Dosing Weight 116.364, kg, Start date: 10/03/16 9:00:00 REGULATORY AFFAIRS INTERN, Duration: 30 day, Stop date: 11/01/16 17:00:00 CSTNotes: (Same as: Neurontin) No Longer Active 10/03/2016 [facility] Glucagon 1 mg, Route: IM, Drug form: PDR/INJ, PRN, Dosing Weight 116.364, kg, PRN Blood Glucose Results, Start date: 10/02/16 23:04:00 REGULATORY AFFAIRS INTERN, Duration: 30 day, Stop date: 11/01/16 23:03:00 REGULATORY AFFAIRS INTERN No Longer Active 10/03/2016 [facility] Dextrose 50% Syringe 12.5 gm, 25 mL, Route: IVP, Drug Form: INJ, Dosing Weight 116.364, kg, PRN, PRN Blood Glucose Results, Start date: 10/02/16 23:04:00 REGULATORY AFFAIRS INTERN, Duration: 30 day, Stop date: 11/01/16 23:03:00 REGULATORY AFFAIRS INTERN No Longer Active 10/03/2016 [facility] Insulin, Aspart, Human 6 unit, 0.06 mL, Route: SUB-Q, Drug form: SOLN, TID-Before Meals, Dosing Weight 116.364, kg, PRN Blood Glucose Results, Start date: 10/02/16 23:04:00 REGULATORY AFFAIRS INTERN, Duration: 30 day, Stop date: 11/01/16 23:03:00 CSTNotes: Roll in palms of hands gently; Do not shake vigorously. (Same as: NovoLOG) "single patient use only" WASTE: F/P - Black; E - Municipal Trash Bin Stable for 28 days at room temperature. Expires in days from Date No Longer Active 10/03/2016 [facility] Benadryl 25 mg, 1 tab, Route: PO, Drug form: TAB, Q8H, Dosing Weight 116.364, kg, PRN as needed for itching, Start date: 10/02/16 22:45:00 REGULATORY AFFAIRS INTERN, Duration: 30 day, Stop date: 11/01/16 22:44:00 REGULATORY AFFAIRS INTERN No Longer Active 10/03/2016 [facility] Nystatin 932368 UNT/ML / Triamcinolone Acetonide 1 MG/ML Topical Cream 1 appl, TOP, BID, # 30 gm, 0 Refill(s) Active 10/02/2016 [facility] gabapentin 300 MG Oral Capsule 300 mg=1 cap, PO, BID, # 90 cap, 1 Refill(s) No Longer Active 10/02/2016 [facility] Reglan 10 mg, 2 mL, Route: IVP, Drug form: INJ, Q6H, Dosing Weight 116.364, kg, PRN Nausea & Vomiting, Start date: 10/02/16 9:14:00 REGULATORY AFFAIRS INTERN, Duration: 30 day, Stop date: 11/01/16 9:13:00 CSTNotes: (Same as: Reglan) No Longer Active 10/02/2016 [facility] Rocephin 1 gm, Route: IVPB, [id number], Dosing Weight 116.364, kg, Start date: 10/02/16 0:00:00 REGULATORY AFFAIRS INTERN, Duration: 30 day, Stop date: 10/31/16 23:00:00 CSTNotes: (Same As: Rocephin). Use with 100 mL NS and infuse over 30 min MEDICATION WASTE Product Size: 1000 mg Product Wasted: ___ mg No Longer Active 10/02/2016 [facility] Saline Flush 0.9% 10 ml, Route: IVP, Drug Form: INJ, Dosing Weight 116.364, kg, PRN, PRN Line Flush, Start date: 10/01/16 23:34:00 REGULATORY AFFAIRS INTERN, Duration: 30 day, Stop date: 10/31/16 23:33:00 CSTNotes: (Same as: BD Posiflush) No Longer Active 10/02/2016 [facility] Ondansetron 4 mg, 2 mL, Route: IVP, Drug form: INJ, Q6H, Dosing Weight 116.364, kg, PRN Nausea & Vomiting, Start date: 10/01/16 23:34:00 REGULATORY AFFAIRS INTERN, Duration: 30 day, Stop date: 10/31/16 23:33:00 CSTNotes: (Same as: Zofran) MEDICATION WASTE Product Size: 4 mg Product Wasted: ___ mg No Longer Active 10/02/2016 [facility] Sodium Chloride 0.154 MEQ/ML Injectable Solution 1,000 mL, Rate: 100 ml/hr, Infuse over: 10 hr, Route: IV, Dosing Weight 116.364 kg, Total Volume: 1,000, Start date: 10/01/16 23:34:00 REGULATORY AFFAIRS INTERN, Duration: 30 day, Stop date: 10/31/16 23:33:00 REGULATORY AFFAIRS INTERN No Longer Active 10/02/2016 [facility] Acetaminophen 325 MG / Hydrocodone Bitartrate 5 MG Oral Tablet 2 tab, Route: PO, Drug Form: TAB, Dosing Weight 116.364, kg, Q4H, PRN Pain Score 7-10, Start date: 10/01/16 23:34:00 REGULATORY AFFAIRS INTERN, Duration: 30 day, Stop date: 10/31/16 23:33:00 CSTNotes: (Same as: Jenkins 325/5) Do not exceed 4gm/day of acetaminophen. No Longer Active 10/02/2016 [facility] Morphine 2 mg, 1 mL, Route: IVP, Drug form: INJ, Q4H, Dosing Weight 116.364, kg, PRN Pain Score 7-10, Start date: 10/01/16 23:34:00 REGULATORY AFFAIRS INTERN, Duration: 30 day, Stop date: 10/31/16 23:33:00 CSTNotes: (Same as:MORPhine Sulfate) No Longer Active 10/02/2016 [facility] Insulin, Aspart, Human 10 unit, 0.1 mL, Route: SUB-Q, Drug form: SOLN, TID-Before Meals, Dosing Weight 116.364, kg, PRN Blood Glucose Results, Start date: 10/01/16 23:30:00 REGULATORY AFFAIRS INTERN, Duration: 30 day, Stop date: 10/31/16 23:29:00 CSTNotes: Roll in palms of hands gently; Do not shake vigorously. (Same as: NovoLOG) "single patient use only" WASTE: F/P - Black; E - Municipal Trash Bin Stable for 28 days at room temperature. Expires in days from Date No Longer Active 10/02/2016 [facility] Glucagon 1 mg, Route: IM, Drug form: PDR/INJ, PRN, Dosing Weight 116.364, kg, PRN Blood Glucose Results, Start date: 10/01/16 23:30:00 REGULATORY AFFAIRS INTERN, Duration: 30 day, Stop date: 10/31/16 23:29:00 REGULATORY AFFAIRS INTERN No Longer Active 10/02/2016 [facility] Dextrose 50% Syringe 25 gm, 50 mL, Route: IVP, Drug Form: INJ, Dosing Weight 116.364, kg, PRN, PRN Blood Glucose Results, Start date: 10/01/16 23:30:00 REGULATORY AFFAIRS INTERN, Duration: 30 day, Stop date: 10/31/16 23:29:00 REGULATORY AFFAIRS INTERN No Longer Active 10/02/2016 [facility] Rocephin 1 gm, Route: IV, ONCE, Dosing Weight 116.364, kg, Priority: STAT, Start date: 10/01/16 22:39:00 REGULATORY AFFAIRS INTERN, Stop date: 10/01/16 22:39:00 CSTNotes: (Same As: Rocephin). Use with 100 mL NS and infuse over 30 min MEDICATION WASTE Product Size: 1000 mg Product Wasted: ___ mg Inactive 10/02/2016 [facility] Zofran 4 mg, Route: IVP, Drug form: INJ, ONCE, Dosing Weight 116.364, kg, Priority: STAT, Start date: 10/01/16 19:44:00 REGULATORY AFFAIRS INTERN, Stop date: 10/01/16 19:44:00 REGULATORY AFFAIRS INTERN Inactive 10/02/2016 [facility] Diflucan 150 mg, 1.5 tab, Route: PO, Drug form: TAB, ONCE, Dosing Weight 116.364, kg, Start date: 10/01/16 19:11:00 REGULATORY AFFAIRS INTERN, Stop date: 10/01/16 19:11:00 CSTNotes: (Same as: Diflucan) Inactive 10/02/2016 [facility] Acetaminophen 300 MG / Codeine Phosphate 30 MG Oral Tablet [Tylenol with Codeine #3] 1 tab, PO, Q6H, PRN Pain, X 3 day, # 11 tab, 0 Refill(s) No Longer Active 10/02/2016 [facility] Ondansetron 4 MG Disintegrating Tablet [Zofran] 4 mg=1 tab, PO, TID, Dissolve tab under tongue, X 1 day, # 3 tab, 0 Refill(s) No Longer Active 10/02/2016 [facility] cefdinir 300 MG Oral Capsule [Omnicef] 300 mg=1 cap, PO, Q12H, X 14 day, # 28 cap, 0 Refill(s) No Longer Active 10/02/2016 [facility] Morphine 4 mg, Route: IVP, ONCE, Dosing Weight 116.364, kg, Priority: STAT, Start date: 10/01/16 18:03:00 REGULATORY AFFAIRS INTERN, Stop date: 10/01/16 18:03:00 REGULATORY AFFAIRS INTERN Inactive 10/02/2016 [facility] Diflucan 150 mg, 3 tab, Route: PO, Drug form: TAB, ONCE, Dosing Weight 116.364, kg, Start date: 10/01/16 17:35:00 REGULATORY AFFAIRS INTERN, Stop date: 10/01/16 17:35:00 CSTNotes: (Same as: Diflucan) Inactive 10/01/2016 [facility] Fluconazole 150 mg, 1 tab, Route: PO, Drug form: TAB, ONCE, Dosing Weight 116.364, kg, Start date: 10/01/16 16:45:00 REGULATORY AFFAIRS INTERN, Stop date: 10/01/16 16:45:00 CSTNotes: (Same as: Diflucan) Inactive 10/01/2016 [facility] Vancomycin 2,000 mg, Route: IVPB, ONCE, Dosing Weight 116.364, kg, Priority: STAT, Start date: 10/01/16 15:26:00 REGULATORY AFFAIRS INTERN, Stop date: 10/01/16 15:26:00 CSTNotes: TIME CRITICAL MEDICATION (Same As: Vancocin) Infusion rate 2001 mg: infuse over 2.5 hours MEDICATION WASTE Product Size: 1000 mg Product Wasted: ___ mg Inactive 10/01/2016 [facility] Zofran 4 mg, Route: IVP, Drug form: INJ, ONCE, Dosing Weight 116.364, kg, Priority: STAT, Start date: 10/01/16 15:24:00 REGULATORY AFFAIRS INTERN, Stop date: 10/01/16 15:24:00 REGULATORY AFFAIRS INTERN Inactive 10/01/2016 [facility] Morphine 4 mg, Route: IVP, ONCE, Dosing Weight 116.364, kg, Priority: STAT, Start date: 10/01/16 15:24:00 REGULATORY AFFAIRS INTERN, Stop date: 10/01/16 15:24:00 REGULATORY AFFAIRS INTERN Inactive 10/01/2016 [facility] Sodium Chloride 0.154 MEQ/ML Injectable Solution 1,000 mL, 1,000 ml/hr, Infuse Over: 1 hr, Route: IV, ONCE, Priority: STAT, Dosing Weight 116.364 kg, Start date: 10/01/16 15:24:00 REGULATORY AFFAIRS INTERN, Duration: 1 doses or times, Stop date: 10/01/16 15:24:00 REGULATORY AFFAIRS INTERN Inactive 10/01/2016 [facility] Saline Flush 0.9% 10 mL, Route: IVP, Drug Form: INJ, Dosing Weight 116.364, kg, PRN, PRN Line Flush, Start date: 10/01/16 12:22:00 REGULATORY AFFAIRS INTERN, Duration: 30 day, Stop date: 10/31/16 12:21:00 CSTNotes: (Same as: BD Posiflush) No Longer Active 10/01/2016 [facility] Acetaminophen 300 MG / Codeine Phosphate 30 MG Oral Tablet [Tylenol with Codeine #3] 1 tab, PO, Q4H, PRN Pain, X 3 day, # 18 tab, 0 Refill(s) Active 09/02/2016 [facility] Insulin regular 10 unit, Route: IVP, ONCE, Dosing Weight 120.455, kg, Priority: STAT, Start date: 09/01/16 17:57:00 CDT, Stop date: 09/01/16 17:57:00 CDT Inactive 09/01/2016 [facility] Flexeril 10 mg, Route: PO, ONCE, Dosing Weight 120.455, kg, Priority: STAT, Start date: 09/01/16 17:57:00 CDT, Stop date: 09/01/16 17:57:00 CDT Inactive 09/01/2016 [facility] Morphine 6 mg, Route: IVP, ONCE, Dosing Weight 120.455, kg, Priority: STAT, Start date: 09/01/16 17:57:00 CDT, Stop date: 09/01/16 17:57:00 CDT Inactive 09/01/2016 [facility] Saline Flush 0.9% 10 mL, Route: IVP, Drug Form: INJ, Dosing Weight 113.636, kg, PRN, PRN Line Flush, Start date: 09/01/16 13:48:00 CDT, Duration: 30 day, Stop date: 10/01/16 12:47:00 CSTNotes: (Same as: BD Posiflush) No Longer Active 09/01/2016 [facility] Morphine 4 mg, Route: IVP, ONCE, Dosing Weight 113.636, kg, Priority: STAT, Start date: 09/01/16 13:48:00 CDT, Stop date: 09/01/16 13:48:00 CDT Inactive 09/01/2016 [facility] Ciprofloxacin 500 MG Oral Tablet [Cipro] 500 mg=1 tab, PO, Q12H, X 7 day, # 14 tab, 0 Refill(s) Active 05/02/2016 [facility] Rocephin 1 gm, Route: IVPB, Drug form: PDR/INJ, ONCE, Dosing Weight 113.636, kg, Priority: STAT, Start date: 05/02/16 0:44:00 CDT, Stop date: 05/02/16 0:44:00 CDT Inactive 05/02/2016 [facility] Hydralazine Hydrochloride 25 MG Oral Tablet 25 mg, 1 tab, Route: PO, Drug form: TAB, Q8H, Dosing Weight 121.364, kg, Start date: 02/21/16 16:00:00, Duration: 30 day, Stop date: 03/22/16 8:00:00Notes: (Same as: Apresoline) May interfere w/enteral feedings Take With Food. Inactive 02/21/2016 [facility] Nitrofurantoin 100 MG Oral Capsule [Macrobid] 100 mg=1 cap, PO, BID, # 60 cap, 0 Refill(s) Inactive 02/21/2016 [facility] pantoprazole 40 mg oral enteric coated tablet 40 mg=1 tab, PO, Before Dinner, # 30 tab, 0 Refill(s) Active 02/21/2016 [facility] dicyclomine 20 mg oral tablet 20 mg=1 tab, PO, QID, # 120 tab, 0 Refill(s) Active 02/21/2016 [facility] Dicyclomine 20 mg, 1 tab, Route: PO, Drug form: TAB, QID, Dosing Weight 121.364, kg, Start date: 02/17/16 13:00:00, Duration: 30 day, Stop date: 03/18/16 9:00:00Notes: (Same as: Bentyl) No Longer Active 02/17/2016 [facility] magnesium citrate 300 ml, Route: PO, Drug Form: LIQ, Dosing Weight 121.364, kg, ONCE, give at 2100, Start date: 02/16/16 21:00:00, Stop date: 02/16/16 21:00:00Notes: (Same as: Citrate of Magnesia) Inactive 02/17/2016 [facility] Bisacodyl 20 mg, 4 tab, Route: PO, Drug form: ECTAB, ONCE, Dosing Weight 121.364, kg, give at 2100, Start date: 02/16/16 21:00:00, Stop date: 02/16/16 21:00:00Notes: (Same As: Dulcolax, Correctol) (Do Not Crush) "Do Not Crush" Inactive 02/17/2016 [facility] Citrate of Magnesia 300 ml, Route: PO, Drug Form: LIQ, Dosing Weight 121.364, kg, ONCE, Routine, Start date: 02/16/16 14:50:00, Stop date: 02/16/16 14:50:00Notes: (Same as: Citrate of Magnesia) Inactive 02/16/2016 [facility] Lisinopril 30 mg, 3 tab, Route: PO, Drug form: TAB, Daily, Dosing Weight 121.364, kg, Start date: 02/16/16 9:00:00, Duration: 30 day, Stop date: 03/16/16 9:00:00Notes: (Same as: Prinivil, Zestril) No Longer Active 02/16/2016 [facility] Nexium 40 mg, Route: PO, Drug form: ECCAP, Daily, Dosing Weight 121.364, kg, Start date: 02/16/16 9:00:00, Duration: 30 day, Stop date: 03/16/16 9:00:00 No Longer Active 02/16/2016 [facility] Citrate of Magnesia 300 ml, Route: PO, Drug Form: LIQ, Dosing Weight 121.364, kg, ONCE, NOW, Start date: 02/16/16 8:25:00, Stop date: 02/16/16 8:25:00Notes: (Same as: Citrate of Magnesia) Inactive 02/16/2016 [facility] Sodium Chloride 0.154 MEQ/ML Injectable Solution 1,000 mL, Rate: 25 ml/hr, Infuse over: 40 hr, Route: IV, Dosing Weight 121.364 kg, Total Volume: 1,000, Start date: 02/16/16 8:06:00, Duration: 30 day, Stop date: 03/17/16 8:05:00 Inactive 02/16/2016 [facility] glimepiride 2 mg, 1 tab, Route: PO, Drug form: TAB, Breakfast, Dosing Weight 121.364, kg, Start date: 02/16/16 8:00:00, Duration: 30 day, Stop date: 03/16/16 8:00:00Notes: (Same as: Amaryl) No Longer Active 02/16/2016 [facility] Levemir FlexPen 60 unit, 0.6 mL, Route: SUB-Q, Drug form: INJ, Bedtime, Dosing Weight 121.364, kg, Start date: 02/15/16 21:00:00, Duration: 30 day, Stop date: 03/15/16 21:00:00Notes: Same as Levemir Do not hold insulin without contacting prescriber WASTE: F/P - Black; E - [facility]ash [facility] "single patient use only" No Longer Active 02/16/2016 [facility] Reglan 10 mg, 2 mL, Route: IVP, Drug form: INJ, Q6H, Dosing Weight 121.364, kg, Start date: 02/15/16 18:00:00, Duration: 30 day, Stop date: 03/16/16 14:00:00Notes: (Same as: Reglan) No Longer Active 02/15/2016 [facility] gabapentin 300 MG Oral Capsule 300 mg, 1 cap, Route: PO, Drug form: CAP, TID, Dosing Weight 121.364, kg, Start date: 02/15/16 17:00:00, Duration: 30 day, Stop date: 03/16/16 13:00:00Notes: (Same as: Neurontin) No Longer Active 02/15/2016 [facility] NovoLOG FlexPen 25 unit, 0.25 mL, Route: SUB-Q, Drug form: SOLN, TID-Meals, Start date: 02/15/16 17:00:00, Stop date: 03/16/16 12:00:00Notes: Roll in palms of hands gently; Do not shake vigorously. (Same as: NovoLOG) "single patient use only" WASTE: F/P - Black; E - Municipal Trash Bin Stable for 28 days at room temperature. Expires in days from Date No Longer Active 02/15/2016 [facility] Protonix 40 mg, 1 tab, Route: PO, Drug form: ECTAB, Before Dinner, Start date: 02/15/16 16:30:00, Duration: 30 day, Stop date: 03/15/16 16:30:00Notes: Tablet should not be chewed or crushed. (Same as: Protonix) No Longer Active 02/15/2016 [facility] Humalog 20 unit, Route: SUB-Q, Drug form: SOLN, TID-Before Meals, Dosing Weight 121.364, kg, Start date: 02/15/16 16:30:00, Duration: 30 day, Stop date: 03/16/16 11:30:00 Inactive 02/15/2016 [facility] Enoxaparin 40 mg, 0.4 mL, Route: SUB-Q, Drug form: INJ, [id number], Dosing Weight 121.364, kg, Consider for obese patients, Start date: 02/15/16 16:00:00, Duration: 30 day, Stop date: 03/16/16 8:00:00Notes: (Same as: Lovenox) No Longer Active 02/15/2016 [facility] lisinopril 30 mg oral tablet 30 mg=1 tab, PO, Daily, # 30 tab, 0 Refill(s) Active 02/15/2016 [facility] gabapentin 300 MG Oral Capsule 300 mg=1 cap, PO, TID, 0 Refill(s) Active 02/15/2016 [facility] glimepiride 2 mg oral tablet 2 mg=1 tab, PO, Breakfast, # 90 tab, 0 Refill(s) Active 02/15/2016 [facility] Humalog 100 units/mL 20 unit, SUB-Q, TID-Before Meals, 0 Refill(s) Active 02/15/2016 [facility] Glucagon 1 mg, Route: IM, Drug form: PDR/INJ, PRN, Dosing Weight 118.182, kg, PRN Blood Glucose Results, Start date: 02/15/16 4:41:00, Duration: 30 day, Stop date: 03/16/16 4:40:00 No Longer Active 02/15/2016 [facility] Dextrose 50% Syringe 25 gm, 50 mL, Route: IVP, Drug Form: INJ, Dosing Weight 118.182, kg, PRN, PRN Blood Glucose Results, Start date: 02/15/16 4:41:00, Duration: 30 day, Stop date: 03/16/16 4:40:00 No Longer Active 02/15/2016 [facility] Insulin, Aspart, Human 4 unit, 0.04 mL, Route: SUB-Q, Drug form: SOLN, TID-Before Meals, Dosing Weight 118.182, kg, PRN Blood Glucose Results, Start date: 02/15/16 4:41:00, Duration: 30 day, Stop date: 03/16/16 4:40:00Notes: Roll in palms of hands gently; Do not shake vigorously. (Same as: NovoLOG) "single patient use only" WASTE: F/P - Black; E - Municipal Trash Bin Stable for 28 days at room temperature. Expires in days from Date No Longer Active 02/15/2016 [facility] Sodium Chloride 0.154 MEQ/ML Injectable Solution 1,000 mL, Rate: 75 ml/hr, Infuse over: 13.3 hr, Route: IV, Dosing Weight 118.182 kg, Total Volume: 1,000, Start date: 02/15/16 4:41:00, Duration: 30 day, Stop date: 03/16/16 4:40:00 No Longer Active 02/15/2016 [facility] Ceftriaxone 1 gm, Route: IVPB, Q24H, Dosing Weight 118.182, kg, Priority: STAT, Start date: 02/15/16 4:41:00, Duration: 30 day, Stop date: 03/15/16 4:41:00Notes: (Same As: Rocephin). Use with 100 mL NS and infuse over 30 min MEDICATION WASTE Product Size: 1000 mg Product Wasted: ___ mg No Longer Active 02/15/2016 [facility] Ondansetron 4 mg, 2 mL, Route: IVP, Drug form: INJ, Q6H, Dosing Weight 118.182, kg, PRN Nausea & Vomiting, Start date: 02/15/16 4:41:00, Duration: 30 day, Stop date: 03/16/16 4:40:00Notes: (Same as: Zofran) MEDICATION WASTE Product Size: 4 mg Product Wasted: ___ mg No Longer Active 02/15/2016 [facility] Docusate 100 mg, 1 cap, Route: PO, Drug form: CAP, BID, Dosing Weight 118.182, kg, PRN Constipation, Start date: 02/15/16 4:41:00, Duration: 30 day, Stop date: 03/16/16 4:40:00Notes: (Same as: Colace) (Do Not Crush) No Longer Active 02/15/2016 [facility] Morphine 4 mg, 2 mL, Route: IVP, Drug form: INJ, Q4H, Dosing Weight 118.182, kg, PRN Pain Score 7-10, Start date: 02/15/16 4:41:00, Duration: 30 day, Stop date: 03/16/16 4:40:00Notes: (Same as:MORPhine Sulfate) No Longer Active 02/15/2016 [facility] Acetaminophen 650 mg, 2 tab, Route: PO, Drug form: TAB, Q4H, Dosing Weight 118.182, kg, PRN Pain 1-3/Temp > 100.4 F, Start date: 02/15/16 4:41:00, Duration: 30 day, Stop date: 03/16/16 4:40:00Notes: Do not exceed 4 gm/day. (Same as: Tylenol) No Longer Active 02/15/2016 [facility] Rocephin 1 gm, Route: IVPB, Drug form: PDR/INJ, ONCE, Dosing Weight 118.182, kg, Priority: STAT, Start date: 02/15/16 3:17:00, Stop date: 02/15/16 3:17:00 Inactive 02/15/2016 [facility] Insulin regular 5 unit, Route: IV, ONCE, Dosing Weight 118.182, kg, Priority: STAT, Start date: 02/15/16 3:04:00, Stop date: 02/15/16 3:04:00 Inactive 02/15/2016 [facility] Sodium Chloride 0.154 MEQ/ML Injectable Solution 1,000 mL, 1000 ml/hr, Infuse Over: 1 hr, Route: IV, 1,000, Drug form: INJ, ONCE, Priority: STAT, Dosing Weight 118.182 kg, Start date: 02/15/16 3:04:00, Duration: 1 doses or times, Stop date: 02/15/16 3:04:00 Inactive 02/15/2016 [facility] Sodium Chloride 0.154 MEQ/ML Injectable Solution 500 mL, 500 ml/hr, Infuse Over: 1 Hour, Route: IV, ONCE, Priority: STAT, Dosing Weight 118.182 kg, Start date: 02/15/16 1:30:00, Duration: 1 doses or times, Stop date: 02/15/16 1:30:00 Inactive 02/15/2016 [facility] Zofran 4 mg, Route: IVP, Drug form: INJ, ONCE, Dosing Weight 118.182, kg, Priority: STAT, Start date: 02/15/16 1:29:00, Stop date: 02/15/16 1:29:00 Inactive 02/15/2016 [facility] Morphine 4 mg, Route: IVP, Drug form: INJ, ONCE, Dosing Weight 118.182, kg, Priority: STAT, Start date: 02/15/16 1:29:00, Stop date: 02/15/16 1:29:00 Inactive 02/15/2016 [facility] Saline Flush 0.9% 10 mL, Route: IVP, Drug Form: INJ, Dosing Weight 118.182, kg, PRN, PRN Line Flush, Start date: 02/15/16 1:15:00, Duration: 30 day, Stop date: 03/16/16 1:14:00Notes: (Same as: BD Posiflush) Inactive 02/15/2016 [facility] tramadol hydrochloride 50 MG Oral Tablet [Ultram] 50 mg=1 tab, PO, Q6H, PRN pain, X 4 day, # 16 tab, 0 Refill(s) Active 09/22/2015 [facility] Cephalexin 500 MG Oral Capsule [Keflex] 500 mg=1 cap, PO, QID, X 10 day, # 40 cap, 0 Refill(s) Active 09/22/2015 [facility] Sulfamethoxazole 800 MG / Trimethoprim 160 MG Oral Tablet [Bactrim] 1 tab, PO, BID, X 10 day, # 20 tab, 0 Refill(s) Active 09/22/2015 [facility] Acetaminophen 325 MG / Hydrocodone Bitartrate 5 MG Oral Tablet 1 tab, Route: PO, Dosing Weight 118.636, kg, ONCE, STAT, Start date: 09/21/15 23:07:00, Stop date: 09/21/15 23:07:00 Inactive 09/22/2015 [facility] Epinephrine 0.01 MG/ML / Lidocaine Hydrochloride 10 MG/ML Injectable Solution 1 mL, Route: SUB-Q, Drug Form: INJ, Dosing Weight 118.636, kg, ONCE, STAT, Start date: 09/21/15 23:07:00, Stop date: 09/21/15 23:07:00Notes: (Same as: Xylocaine w/Epinephrine) Inactive 09/22/2015 [facility] tramadol hydrochloride 50 MG Oral Tablet [Ultram] 1 - 2 tabs, PO, Q4-6H, PRN Pain Score 4-6, X 4 day, # 30 tab, 0 Refill(s) Active 08/10/2015 [facility] tramadol hydrochloride 50 MG Oral Tablet [Ultram] 1 - 2 tabs, PO, Q4-6H, PRN Pain Score 6-10, X 4 day, # 30 tab, 0 Refill(s) Active 08/10/2015 [facility] Flexeril 10 mg, Route: PO, ONCE, Dosing Weight 109.091, kg, Priority: STAT, Start date: 08/09/15 18:46:00, Stop date: 08/09/15 18:46:00 Inactive 08/09/2015 [facility] ketOROLAC 30 mg/mL injectable solution 30 mg, Route: IM, Drug form: INJ, ONCE, Dosing Weight 109.091, kg, Priority: STAT, Start date: 08/09/15 18:46:00, Stop date: 08/09/15 18:46:00 Inactive 08/09/2015 [facility] tramadol hydrochloride 50 MG Oral Tablet [Ultram] 50 mg=1 tab, PO, Q4H, PRN pain, X 3 day, # 20 tab, 0 Refill(s) Active 06/06/2015 [facility] Sulfamethoxazole 800 MG / Trimethoprim 160 MG Oral Tablet [Bactrim] 1 tab, PO, BID, # 14 tab, 0 Refill(s) Active 05/28/2015 [facility] tramadol hydrochloride 50 MG Oral Tablet 50 mg, Route: PO, Drug form: TAB, ONCE, Dosing Weight 109.091, kg, Priority: STAT, Start date: 04/27/15 6:53:00, Stop date: 04/27/15 6:53:00 Inactive 04/27/2015 [facility] tramadol hydrochloride 50 MG Oral Tablet 50 mg=1 tab, PO, Q6H, PRN Pain, X 7 day, # 25 tab, 0 Refill(s) Active 04/27/2015 [facility] Cephalexin 500 MG Oral Capsule [Keflex] 500 mg=1 cap, PO, QID, X 7 day, # 28 cap, 0 Refill(s) Active 04/27/2015 [facility] Sulfamethoxazole 800 MG / Trimethoprim 160 MG Oral Tablet [Bactrim] 1 tab, PO, BID, X 7 day, # 14 tab, 0 Refill(s) Active 04/27/2015 [facility] Insulin regular 8 unit, Route: IVP, ONCE, Dosing Weight 109.091, kg, Priority: STAT, Start date: 04/27/15 6:49:00, Stop date: 04/27/15 6:49:00 Inactive 04/27/2015 [facility] Sodium Chloride 0.154 MEQ/ML Injectable Solution 500 mL, 500 ml/hr, Infuse Over: 1 Hour, Route: IV, ONCE, Priority: STAT, Dosing Weight 109.091 kg, Start date: 04/27/15 6:47:00, Duration: 1 doses or times, Stop date: 04/27/15 6:47:00 Inactive 04/27/2015 [facility] Insulin regular 8 unit, 0.08 mL, Route: IVP, Drug form: INJ, ONCE, Dosing Weight 109.091, kg, Priority: STAT, Start date: 04/27/15 4:36:00, Stop date: 04/27/15 4:36:00Notes: (Same as: Humulin R and NovoLIN R) (Do not shake) Inactive 04/27/2015 [facility] Sodium Chloride 0.154 MEQ/ML Injectable Solution 1,000 mL, 1,000 ml/hr, Infuse Over: 1 Hour, Route: IV, ONCE, Priority: STAT, Dosing Weight 109.091 kg, Start date: 04/27/15 2:42:00, Duration: 1 doses or times, Stop date: 04/27/15 2:42:00 Inactive 04/27/2015 [facility] Robitussin Cough & Allergy oral liquid 5 mL, PO, Q4H, # 120 mL, 0 Refill(s) Active 01/14/2015 [facility] Docusate Sodium 100 MG Oral Capsule [Colace] 100 mg=1 cap, PO, BID, Constipation, # 20 cap, 0 Refill(s) Active 01/14/2015 [facility] Acetaminophen 325 MG / tramadol hydrochloride 37.5 MG Oral Tablet [Ultracet] 1 tab, PO, Q12H, Pain Score 6-10, # 20 tab, 0 Refill(s) Active 01/14/2015 [facility] Acetaminophen 325 MG / Hydrocodone Bitartrate 5 MG Oral Tablet [Jenkins 5/325] 1 tab, Route: PO, Drug Form: TAB, Dosing Weight 106.818, kg, ONCE, STAT, Start date: 11/16/14 13:13:00, Stop date: 11/16/14 13:13:00 Inactive 11/16/2014 [facility] Acetaminophen 325 MG / Hydrocodone Bitartrate 5 MG Oral Tablet [Jenkins 5/325] 1-2 tab, PO, Q4-6H, Pain, # 15 tab, 0 Refill(s), given to patient Active 11/16/2014 [facility] Ondansetron 4 mg, Route: IVP, Drug form: INJ, ONCE, Dosing Weight 106.818, kg, Priority: STAT, Start date: 11/16/14 9:49:00, Stop date: 11/16/14 9:49:00 Inactive 11/16/2014 [facility] Morphine 4 mg, Route: IVP, ONCE, Dosing Weight 106.818, kg, Priority: STAT, Start date: 11/16/14 9:49:00, Stop date: 11/16/14 9:49:00 Inactive 11/16/2014 [facility] oxybutynin 5 mg, 1 tab, Route: PO, Drug form: TAB, Daily, Dosing Weight 104.545, kg, Start date: 10/30/14 9:00:00, Duration: 30 day, Stop date: 11/28/14 9:00:00Notes: Same as: Ditropan) Inactive 10/30/2014 [facility] Levemir FlexPen 60 unit, 0.6 mL, Route: SUB-Q, Drug form: INJ, Bedtime, Dosing Weight 104.545, kg, Start date: 10/29/14 21:00:00, Duration: 30 day, Stop date: 11/27/14 21:00:00Notes: Same as Levemir Do not hold insulin without contacting prescriber "single patient use only" No Longer Active 10/30/2014 [facility] Lisinopril 30 mg, 3 tab, Route: PO, Drug form: TAB, BID, Dosing Weight 104.545, kg, Start date: 10/29/14 17:00:00, Duration: 30 day, Stop date: 11/28/14 9:00:00Notes: (Same as: Prinivil, Zestril) No Longer Active 10/29/2014 [facility] Insulin, Aspart, Human 10 unit, 0.1 mL, Route: SUB-Q, Drug form: SOLN, ONCE, Dosing Weight 104.545, kg, Priority: NOW, Start date: 10/29/14 16:39:00, Stop date: 10/29/14 16:39:00Notes: Roll in palms of hands gently; Do not shake vigorously. (Same as: NovoLOG) "single patient use only" Stable for 28 days at room temperature. Expires in days from Date Inactive 10/29/2014 [facility] pantoprazole 40 mg, 1 tab, Route: PO, Drug form: ECTAB, Before Dinner, Dosing Weight 104.545, kg, Start date: 10/29/14 16:30:00, Duration: 30 day, Stop date: 11/27/14 16:30:00Notes: Tablet should not be chewed or crushed. (Same as: Protonix) No Longer Active 10/29/2014 [facility] Hydralazine Hydrochloride 25 MG Oral Tablet 25 mg, 1 tab, Route: PO, Drug form: TAB, TID, Dosing Weight 104.545, kg, Start date: 10/29/14 13:00:00, Duration: 30 day, Stop date: 11/28/14 9:00:00Notes: (Same as: Apresoline) May interfere w/enteral feedings Take With Food. No Longer Active 10/29/2014 [facility] Phenazopyridine 200 mg, 1 tab, Route: PO, Drug form: TAB, TID-After Meals, Dosing Weight 104.545, kg, Start date: 10/29/14 12:30:00, Duration: 30 day, Stop date: 11/28/14 8:30:00Notes: Give with meals. (Same as: Pyridium) No Longer Active 10/29/2014 [facility] NovoLOG FlexPen 15 unit, 0.15 mL, Route: SUB-Q, Drug form: SOLN, TID-Before Meals, Start date: 10/29/14 11:30:00, Duration: 30 day, Stop date: 11/28/14 7:30:00Notes: Roll in palms of hands gently; Do not shake jovi rously. (Same as: NovoLOG) "single patient use only" Stable for 28 days at room temperature. Expires in days from Date No Longer Active 10/29/2014 [facility] Insulin Lispro 15 unit, Route: SUB-Q, Drug form: SOLN, TID-Before Meals, Dosing Weight 104.545, kg, Start date: 10/29/14 11:30:00, Duration: 30 day, Stop date: 11/28/14 7:30:00 Inactive 10/29/2014 [facility] Enoxaparin 40 mg, 0.4 mL, Route: SUB-Q, Drug form: INJ, [id number], Dosing Weight 104.545, kg, Start date: 10/29/14 10:00:00, Duration: 30 day, Stop date: 11/27/14 10:00:00Notes: (Same as: Lovenox) No Longer Active 10/29/2014 [facility] Acetaminophen 300 MG / Codeine Phosphate 30 MG Oral Tablet [Tylenol with Codeine #3] Route: PO, Drug Form: TAB, Dosing Weight 104.545, kg, Q4H, PRN as needed for pain, Start date: 10/29/14 9:59:00, Stop date: 11/22/14 16:46:00Notes: Do not exceed 4gm/day of acetaminophen. (Same as: Tylenol with Codeine # 3) No Longer Active 10/29/2014 [facility] Zyvox 600 mg, 300 mL, Route: IVPB, Drug form: SOLN, [id number], Dosing Weight 104.545, kg, Start date: 10/29/14 0:00:00, Duration: 30 day, Stop date: 11/27/14 12:00:00Notes: (Same as: Zyvox) No Longer Active 10/29/2014 [facility] Insulin, Aspart, Human 2 unit, 0.02 mL, Route: SUB-Q, Drug form: SOLN, Bedtime, Dosing Weight 104.545, kg, PRN Blood Glucose Results, Start date: 10/28/14 23:54:00, Duration: 30 day, Stop date: 11/27/14 23:53:00Notes: Roll in palms of hands gently; Do not shake vigorously. (Same as: NovoLOG) "single patient use only" Stable for 28 days at room temperature. Expires in days from Date No Longer Active 10/29/2014 [facility] Glucagon 1 mg, Route: IM, Drug form: PDR/INJ, PRN, Dosing Weight 104.545, kg, PRN Blood Glucose Results, Start date: 10/28/14 23:54:00, Duration: 30 day, Stop date: 11/27/14 23:53:00 No Longer Active 10/29/2014 [facility] Dextrose 50% Syringe 25 gm, 50 mL, Route: IVP, Drug Form: INJ, Dosing Weight 104.545, kg, PRN, PRN Blood Glucose Results, Start date: 10/28/14 23:54:00, Duration: 30 day, Stop date: 11/27/14 23:53:00 No Longer Active 10/29/2014 [facility] oxybutynin 5 mg, PO, Daily, 0 Refill(s) On Hold 10/29/2014 [facility] linezolid 600 MG Oral Tablet [Zyvox] 600 mg=1 tab, PO, Q12H, # 20 tab, 0 Refill(s) On Hold 10/28/2014 [facility] oxybutynin 5 mg oral tablet, extended release 10 mg=2 tab, PO, Daily, # 60 tab, 0 Refill(s) On Hold 10/28/2014 [facility] phenazopyridine 200 mg oral tablet 200 mg=1 tab, PO, TID- After Meals, # 90 tab, 0 Refill(s) On Hold 10/28/2014 [facility] Hydralazine Hydrochloride 25 MG Oral Tablet 25 mg=1 tab, PO, TID, # 90 tab, 0 Refill(s) On Hold 10/28/2014 [facility] Pyridium 200 mg, 1 tab, Route: PO, Drug form: TAB, TID- After Meals, Dosing Weight 109.091, kg, Start date: 10/27/14 1:00:00, Duration: 3 day, Stop date: 10/29/14 17:30:00Notes: Give with meals. (Same as: Pyridium) No Longer Active 10/27/2014 [facility] Hydralazine Hydrochloride 25 MG Oral Tablet 25 mg, 1 tab, Route: PO, Drug form: TAB, TID, Dosing Weight 109.091, kg, Start date: 10/27/14 0:45:00, Duration: 30 day, Stop date: 11/25/14 17:00:00Notes: (Same as: Apresoline) May interfere w/enteral feedings Take With Food. No Longer Active 10/27/2014 [facility] Zyvox 600 mg, 300 mL, Route: IVPB, Drug form: SOLN, [id number], Dosing Weight 109.091, kg, Priority: NOW, Start date: 10/25/14 17:05:00, Duration: 30 day, Stop date: 11/24/14 6:00:00Notes: (Same as: Zyvox) No Longer Active 10/25/2014 [facility] Levemir 25 unit, 0.25 mL, Route: SUB-Q, Drug form: INJ, BID, Dosing Weight 109.091, kg, Priority: NOW, Start date: 10/25/14 17:04:00, Stop date: 11/24/14 9:00:00Notes: Same as Levemir Do not hold insulin without contacting prescriber "single patient use only" No Longer Active 10/25/2014 [facility] NovoLOG FlexPen 15 unit, 0.15 mL, Route: SUB-Q, Drug form: SOLN, TID-Before Meals, Start date: 10/24/14 7:30:00, Duration: 30 day, Stop date: 11/22/14 16:30:00Notes: Roll in palms of hands gently; Do not shake jovi rously. (Same as: NovoLOG) "single patient use only" Stable for 28 days at room temperature. Expires in days from Date No Longer Active 10/24/2014 [facility] NovoLOG FlexPen 8 unit, 0.08 mL, Route: SUB-Q, Drug form: SOLN, ONCE, Dosing Weight 109.091, kg, Priority: NOW, Start date: 10/23/14 21:48:00, Stop date: 10/23/14 21:48:00Notes: Roll in palms of hands gently; Do not shake vigorously. (Same as: NovoLOG) "single patient use only" Stable for 28 days at room temperature. Expires in days from Date Inactive 10/24/2014 [facility] NovoLOG FlexPen 8 unit, Route: SUB-Q, ONCE, Dosing Weight 109.091, kg, Start date: 10/23/14 21:40:00, Stop date: 10/23/14 21:40:00 Inactive 10/24/2014 [facility] Insulin Lispro 15 unit, 0.15 mL, Route: SUB-Q, Drug form: SOLN, TID-Before Meals, Dosing Weight 109.091, kg, Start date: 10/23/14 16:30:00, Duration: 30 day, Stop date: 11/22/14 11:30:00Notes: Roll in palms of hands gently; Do not shake `vigorously. (Same as: Humalog ) "Single Patient Use Only " Stable for 28 days at room temperature. Expires in days from Date Inactive 10/23/2014 [facility] Potassium Chloride 20 MEQ Extended Release Tablet 20 mEq, 1 tab, Route: PO, Drug form: ERTAB, ONCE, Dosing Weight 109.091, kg, Start date: 10/23/14 6:41:00, Stop date: 10/23/14 6:41:00Notes: (Same as: K-Dur 20) "Do Not Crush" With food and full glass of water Inactive 10/23/2014 [facility] Magnesium Sulfate 2 gm, 50 mL, Route: IVPB, Drug form: INJ, ONCE, Dosing Weight 109.091, kg, Start date: 10/22/14 11:02:00, Duration: 2 hr, Stop date: 10/22/14 11:02:00 Inactive 10/22/2014 [facility] Potassium Chloride 40 mEq, Route: PO, ONCE, Dosing Weight 109.091, kg, Start date: 10/22/14 11:02:00, Stop date: 10/22/14 11:02:00 Inactive 10/22/2014 [facility] oxybutynin 10 mg, 2 tab, Route: PO, Drug form: ERTAB, Daily, Dosing Weight 109.091, kg, Start date: 10/22/14 9:00:00, Duration: 30 day, Stop date: 11/20/14 9:00:00Notes: (Same as: Ditropan XL) "Do Not Crush" No Longer Active 10/22/2014 [facility] Nexium 40 mg, Route: PO, Drug form: ECCAP, Daily, Dosing Weight 109.091, kg, Start date: 10/22/14 9:00:00, Duration: 30 day, Stop date: 11/20/14 9:00:00 No Longer Active 10/22/2014 [facility] heparin, porcine 5,000 unit, 1 mL, Route: SUB-Q, Drug form: INJ, Q12H, Dosing Weight 109.091, kg, Start date: 10/21/14 21:00:00, Duration: 30 day, Stop date: 11/20/14 9:00:00Notes: porcine heparin No Longer Active 10/22/2014 [facility] Lisinopril 30 mg, 3 tab, Route: PO, Drug form: TAB, BID, Dosing Weight 109.091, kg, Start date: 10/21/14 17:00:00, Duration: 30 day, Stop date: 11/20/14 9:00:00Notes: (Same as: Prinivil, Zestril) No Longer Active 10/21/2014 [facility] Protonix 40 mg, 1 tab, Route: PO, Drug form: ECTAB, Before Dinner, Start date: 10/21/14 16:30:00, Duration: 30 day, Stop date: 11/19/14 16:30:00Notes: Tablet should not be chewed or crushed. (Same as: Protonix) No Longer Active 10/21/2014 [facility] acetaminophen-codeine 300 mg-30 mg oral tablet 2 tab, Route: PO, Drug Form: TAB, Q4H, PRN Pain Score 6-10, Start date: 10/21/14 11:15:00, Duration: 30 day, Stop date: 11/20/14 11:14:00Notes: Do not exceed 4gm/day of acetaminophen. (Same as: Tylenol with Codeine # 3) No Longer Active 10/21/2014 [facility] Zosyn 3.375 gm, 100 mL, Route: IVPB, Drug form: PDR/INJ, [id number], Dosing Weight 109.091, kg, Start date: 10/21/14 11:00:00, Duration: 30 day, Stop date: 11/20/14 3:00:00Notes: (Same as: Zosyn) Infuse over 4 hours. Activate and reconstitute before use. Dosing based on Piperacillin component No Longer Active 10/21/2014 [facility] Dextrose 50% Syringe 25 gm, 50 mL, Route: IVP, Drug Form: INJ, Dosing Weight 109.091, kg, PRN, PRN Blood Glucose Results, Start date: 10/21/14 10:43:00, Duration: 30 day, Stop date: 11/20/14 10:42:00 No Longer Active 10/21/2014 [facility] Glucagon 1 mg, Route: IM, Drug form: PDR/INJ, PRN, Dosing Weight 109.091, kg, PRN Blood Glucose Results, Start date: 10/21/14 10:43:00, Duration: 30 day, Stop date: 11/20/14 10:42:00 No Longer Active 10/21/2014 [facility] Insulin, Aspart, Human 2 unit, 0.02 mL, Route: SUB-Q, Drug form: SOLN, TID-Before Meals, Dosing Weight 109.091, kg, PRN Blood Glucose Results, Start date: 10/21/14 10:43:00, Duration: 30 day, Stop date: 11/20/14 10:42:00Notes: Roll in palms of hands gently; Do not shake vigorously. (Same as: NovoLOG) "single patient use only" Stable for 28 days at room temperature. Expires in days from Date No Longer Active 10/21/2014 [facility] Calcium Gluconate 3 gm, 30 mL, Route: IVPB, Drug form: INJ, PRN, Dosing Weight 109.091, kg, PRN Abnormal Lab Result, For NON-ICU Patients Only., Start date: 10/21/14 10:43:00, Duration: 30 day, Stop date: 11/20/14 10:42:00 No Longer Active 10/21/2014 [facility] Potassium Chloride 10 mEq, 100 mL, Route: IVPB, Drug form: INJ, PRN, Dosing Weight 109.091, kg, PRN Abnormal Lab Result, For NON-ICU Patients Only, Start date: 10/21/14 10:43:00, Duration: 30 day, Stop date: 11/20/14 10:42:00Notes: Infuse at a rate of 10 mEq/hr. (Same as: KCL) No Longer Active 10/21/2014 [facility] Sodium Phosphate, Monobasic 15 mmol, 5 mL, Route: IVPB, Drug form: INJ, PRN, Dosing Weight 109.091, kg, PRN Abnormal Lab Result, For NON-ICU Patients Only., Start date: 10/21/14 10:43:00, Duration: 30 day, Stop date: 11/20/14 10:42:00 No Longer Active 10/21/2014 [facility] Phosphorus / Potassium 30 mmol, 10 mL, Route: IVPB, Drug form: INJ, PRN, Dosing Weight 109.091, kg, PRN Abnormal Lab Result, For NON-ICU Patients Only., Start date: 10/21/14 10:43:00, Duration: 30 day, Stop date: 11/20/14 10:42:00Notes: (Same as: K Phosphate.) 1 mMol phoshate has 1.47 mEq potassium Infuse over 4 hours No Longer Active 10/21/2014 [facility] Magnesium Sulfate 2 gm, 50 mL, Route: IVPB, Drug form: INJ, PRN, Dosing Weight 109.091, kg, PRN Abnormal Lab Result, For NON-ICU Patients Only., Start date: 10/21/14 10:43:00, Duration: 30 day, Stop date: 11/20/14 10:42:00 No Longer Active 10/21/2014 [facility] Magnesium Oxide 800 mg, 2 tab, Route: PO, Drug form: TAB, PRN, Dosing Weight 109.091, kg, PRN Abnormal Lab Result, For NON-ICU Patients Only., Start date: 10/21/14 10:43:00, Duration: 30 day, Stop date: 11/20/14 10: 42:00Notes: (Same as: Mag-Ox 400) Magnesium oxide [id number] elemental magnesium Dose=____mg magnesium oxide (___mg elemental magnesium) No Longer Active 10/21/2014 [facility] potassium phosphate-sodium phosphate 250 mg-278 mg-164 mg oral powder 2 pkt, Route: PO, Drug Form: PDR/REC, Dosing Weight 109.091, kg, PRN, PRN Abnormal Lab Result, For NON-ICU Patients Only, Start date: 10/21/14 10:43:00, Duration: 30 day, Stop date: 11/20/14 10:42:00Notes: (Same as: Neutra- Phos) Each 1.25 gm pkt has 250mg phosphorous. Mix w/2.5oz water and stir. No Longer Active 10/21/2014 [facility] Zofran 4 mg, 2 mL, Route: IV, Drug form: INJ, Q8H, Dosing Weight 109.091, kg, PRN Nausea, Start date: 10/21/14 10:42:00, Duration: 30 day, Stop date: 11/20/14 10:41:00Notes: (Same as: Zofran) No Longer Active 10/21/2014 [facility] Acetaminophen 300 MG / Codeine Phosphate 30 MG Oral Tablet [Tylenol with Codeine #3] 1 tab, Route: PO, Drug Form: TAB, Dosing Weight 109.091, kg, Q4H, PRN Pain Score 4-6, Start date: 10/21/14 10:40:00, Stop date: 11/22/14 16:46:00Notes: Do not exceed 4gm/day of acetaminophen. (Same as: Tylenol with Codeine # 3) No Longer Active 10/21/2014 [facility] NS 1,000 mL 1,000 mL, Rate: 75 ml/hr, Infuse over: 13.3 hr, Route: IV, Dosing Weight 110 kg, Total Volume: 1,000, Start date: 10/21/14 5:36:00, Duration: 30 day, Stop date: 11/20/14 5:35:00 No Longer Active 10/21/2014 [facility] Ondansetron 4 mg, 2 mL, Route: IVP, Drug form: INJ, Q8H, Dosing Weight 110, kg, PRN Nausea & Vomiting, Start date: 10/21/14 5:36:00, Duration: 30 day, Stop date: 11/20/14 5:35:00Notes: (Same as: Zofran) No Longer Active 10/21/2014 [facility] Morphine 2 mg, 1 mL, Route: IVP, Drug form: INJ, Q3H, Dosing Weight 110, kg, PRN Pain Score 4-6, Start date: 10/21/14 5:36:00, Duration: 30 day, Stop date: 11/20/14 5:35:00Notes: (Same as:MORPhine Sulfate) No Longer Active 10/21/2014 [facility] Acetaminophen 650 mg, 2 tab, Route: PO, Drug form: TAB, Q4H, Dosing Weight 110, kg, PRN Pain 1-3/Temp > 100.4 F, Start date: 10/21/14 5:36:00, Duration: 30 day, Stop date: 11/20/14 5:35:00Notes: Do not exceed 4 gm /day. (Same as: Tylenol) Inactive 10/21/2014 [facility] Morphine 4 mg, Route: IVP, Drug form: INJ, ONCE, Dosing Weight 110, kg, Priority: STAT, Start date: 10/21/14 2:10:00, Stop date: 10/21/14 2:10:00 Inactive 10/21/2014 [facility] Potassium Chloride 20 mEq, 100 mL, Route: IVPB, Drug form: INJ, Q2H, Dosing Weight 110, kg, Total dose=40 mEq, Start date: 10/21/14 2:00:00, Duration: 2 doses or times, Stop date: 10/21/14 4:00:00Notes: (Same as: KCL) Infuse no faster than 10 mEq/hr if given peripherally. Inactive 10/21/2014 [facility] Rocephin 1 gm, Route: IVPB, Drug form: PDR/INJ, ONCE, Dosing Weight 110, kg, Priority: STAT, Start date: 10/21/14 0:47:00, Stop date: 10/21/14 0:47:00 Inactive 10/21/2014 [facility] Zofran 4 mg, Route: IVP, Drug form: INJ, ONCE, Dosing Weight 110, kg, Priority: STAT, Start date: 10/20/14 22:22:00, Stop date: 10/20/14 22:22:00 Inactive 10/21/2014 [facility] Benadryl 12.5 mg, 0.25 mL, Route: IVP, Drug form: INJ, ONCE, Dosing Weight 110, kg, Priority: STAT, Start date: 10/20/14 22:22:00, Stop date: 10/20/14 22:22:00Notes: (Same as: Benadryl) No Longer Active 10/21/2014 [facility] Morphine 4 mg, Route: IVP, Drug form: INJ, ONCE, Dosing Weight 110, kg, Priority: STAT, Start date: 10/20/14 22:22:00, Stop date: 10/20/14 22:22:00 Inactive 10/21/2014 [facility] Sodium Chloride 0.154 MEQ/ML Injectable Solution 500 mL, 500 ml/hr, Infuse Over: 1 hr, Route: IV, ONCE, Priority: STAT, Dosing Weight 110 kg, Start date: 10/20/14 22:21:00, Duration: 1 doses or times, Stop date: 10/20/14 22:21:00 Inactive 10/21/2014 [facility] Protonix 40 mg, 1 tab, Route: PO, Drug form: ECTAB, Before Dinner, Start date: 10/13/14 16:30:00, Duration: 30 day, Stop date: 11/11/14 16:30:00Notes: Tablet should not be chewed or crushed. (Same as: Protonix) Inactive 10/13/2014 [facility] nitrofurantoin macrocrystals-monohydrate 100 mg oral capsule (Macrobid) 100 mg=1 cap, PO, Q12H, x7 days; started 09/21/14, # 30 cap, 0 Refill(s)Special Instructions: x7 days; started 09/21/14 Inactive 10/13/2014 [facility] pantoprazole 40 mg oral enteric coated tablet 40 mg=1 tab, PO, Before Dinner, # 30 tab, 0 Refill(s) Active 10/13/2014 [facility] Acetaminophen 325 MG / Hydrocodone Bitartrate 7.5 MG Oral Tablet [Jenkins 7.5/325] 1 tab, Route: PO, Drug Form: TAB, Dosing Weight 109.955, kg, Q4H, PRN Pain Score 4-6, Start date: 10/12/14 22:32:00, Duration: 30 day, Stop date: 11/11/14 22:31:00Notes: Same as Jenkins 325-7.5mg Do not exceed 4gm/day of acetaminophen. No Longer Active 10/13/2014 [facility] Benadryl 12.5 mg, 0.25 mL, Route: IVP, Drug form: INJ, ONCE, Dosing Weight 109.955, Start date: 10/12/14 22:30:00, Stop date: 10/12/14 22:30:00Notes: (Same as: Benadryl) Inactive 10/13/2014 [facility] Levemir FlexPen 10 unit, 0.1 mL, Route: SUB-Q, Drug form: INJ, Bedtime, Dosing Weight 106.818, kg, Start date: 10/12/14 21:00:00, Duration: 30 day, Stop date: 11/10/14 21:00:00Notes: Same as Levemir Do not hold insulin without contacting prescriber "single patient use only" No Longer Active 10/13/2014 [facility] Protonix 40 mg, Route: IVP, Drug form: INJ, Before Dinner, Start date: 10/12/14 16:30:00, Duration: 30 day, Stop date: 11/10/14 16:30:00Notes: For IV push reconstitute with 10 ml 0.9% sodium chloride and push over 2 minutes. (Same as: Protonix) No Longer Active 10/12/2014 [facility] acetaminophen-codeine 15 mL, Route: PO, Drug Form: LIQ, PRN, PRN Pain, Start date: 10/12/14 15:31:00, Duration: 30 day, Stop date: 11/11/14 15:30:00Notes: (acetaminophen-codeine 120-12 mg/5 ml oral liq) Do not exceed 4gm/day of acetaminophen. (Same as: Tylenol w/Codeine) No Longer Active 10/12/2014 [facility] Acetaminophen 300 MG / Codeine Phosphate 30 MG Oral Tablet [Tylenol with Codeine #3] 15 mL, Route: PO, Drug Form: ELIX, Dosing Weight 109.955, kg, PRN, PRN as needed for pain, Start date: 10/12/14 14:14:00, Duration: 30 day, Stop date: 11/11/14 14:13:00 Inactive 10/12/2014 [facility] pantoprazole 40 mg, 1 tab, Route: PO, Drug form: ECTAB, Daily, Dosing Weight 109.955, kg, Start date: 10/12/14 9:00:00, Duration: 30 day, Stop date: 11/10/14 9:00:00Notes: Tablet should not be chewed or crushed. (Same as: Protonix) Inactive 10/12/2014 [facility] Enoxaparin 30 mg, 0.3 mL, Route: SUB-Q, Drug form: INJ, [id number], Dosing Weight 109.955, kg, Start date: 10/12/14 6:00:00, Duration: 30 day, Stop date: 11/10/14 18:00:00Notes: (Same as: Lovenox) No Longer Active 10/12/2014 [facility] Hydralazine 10 mg, 0.5 mL, Route: IV, Drug form: INJ, Q6H, Dosing Weight 109.955, kg, PRN Hypertension, Start date: 10/12/14 0:40:00, Duration: 30 day, Stop date: 11/11/14 0:39:00Notes: (Same as: Apresoline) Push over 5 minutes No Longer Active 10/12/2014 [facility] Cefoxitin 20 MG/ML Injectable Solution 2 gm, Route: IVPB, Q6H, Dosing Weight 109.955, kg, Start date: 10/11/14 18:00:00, Duration: 1 doses or times, Stop date: 10/11/14 18:00:00Notes: (Same As: Mefoxin) Inactive 10/12/2014 [facility] Dilaudid 0.5 mg, Route: IVP, ONCE, Dosing Weight 109.955, kg, Priority: STAT, Start date: 10/11/14 17:39:00, Stop date: 10/11/14 17:39:00 Inactive 10/11/2014 [facility] Dilaudid 0.5 mg, Route: IVP, ONCE, Dosing Weight 109.955, kg, Priority: STAT, Start date: 10/11/14 17:31:00, Stop date: 10/11/14 17:31:00 Inactive 10/11/2014 [facility] Dilaudid 0.5 mg, Route: IVP, ONCE, Dosing Weight 109.955, kg, Priority: STAT, Start date: 10/11/14 17:15:00, Stop date: 10/11/14 17:15:00 Inactive 10/11/2014 [facility] Dilaudid 0.5 mg, Route: IVP, ONCE, Dosing Weight 109.955, kg, Priority: STAT, Start date: 10/11/14 17:12:00, Stop date: 10/11/14 17:12:00 Inactive 10/11/2014 [facility] Enoxaparin 30 mg, Route: SUB-Q, Drug form: INJ, [id number], Dosing Weight 109.955, kg, Start date: 10/11/14 17:00:00, Duration: 30 day, Stop date: 11/10/14 5:00:00 Inactive 10/11/2014 [facility] Promethazine Hydrochloride 25 MG Oral Tablet [Phenergan] 25 mg=1 tab, PO, Q6H, Nausea, # 15 tab, 0 Refill(s) Active 10/11/2014 [facility] Acetaminophen 300 MG / Codeine Phosphate 30 MG Oral Tablet [Tylenol with Codeine #3] 1 - 2 tab, PO, Q4H, Pain, # 30 tab, 2 Refill(s) Active 10/11/2014 [facility] Rocephin 1 gm, Route: IVPB, Drug form: PDR/INJ, ONCE, Dosing Weight 109.955, kg, Start date: 10/11/14 14:36:00, Stop date: 10/11/14 14:36:00 Inactive 10/11/2014 [facility] Reglan 10 mg, 2 mL, Route: IVP, Drug form: INJ, Q6H, Dosing Weight 106.818, kg, Start date: 10/08/14 18:00:00, Duration: 30 day, Stop date: 11/07/14 12:00:00Notes: (Same as: Reglan) No Longer Active 10/09/2014 [facility] LR IV 3000 mL 3,000 mL, Rate: 100 ml/hr, Infuse over: 30 hr, Route: IV, Dosing Weight 106.818 kg, Total Volume: 3,000, Start date: 10/07/14 20:24:00, Duration: 30 day, Stop date: 11/06/14 20:23:00 Inactive 10/08/2014 [facility] Sucralfate 100 MG/ML Oral Suspension [Carafate] 1 gm, 10 mL, Route: PO, Drug form: SUSP, QID, Dosing Weight 106.818, kg, Start date: 10/07/14 13:00:00, Duration: 30 day, Stop date: 11/06/14 9:00:00Notes: Enteral feeds may interfere with the absorption of this medication. Shake well. Take 1 hr before or 2 hrs after antacids, dairy pdt, minerals & meals. (Same As: Carafate) No Longer Active 10/07/2014 [facility] oxybutynin 10 mg, 2 tab, Route: PO, Drug form: ERTAB, Daily, Dosing Weight 106.818, kg, Start date: 10/07/14 9:00:00, Duration: 30 day, Stop date: 11/05/14 9:00:00Notes: (Same as: Ditropan XL) "Do Not Crush" No Longer Active 10/07/2014 [facility] Levemir FlexPen 15 unit, 0.15 mL, Route: SUB-Q, Drug form: INJ, Bedtime, Dosing Weight 106.818, kg, Start date: 10/06/14 21:00:00, Stop date: 11/04/14 21:00:00Notes: Same as Levemir Do not hold insulin without conta cting prescriber "single patient use only" No Longer Active 10/07/2014 [facility] Protonix 40 mg, Route: IVP, Drug form: INJ, BID, Dosing Weight 106.818, kg, Start date: 10/06/14 17:00:00, Duration: 30 day, Stop date: 11/05/14 9:00:00Notes: For IV push reconstitute with 10 ml 0.9% sodium chloride and push over 2 minutes. (Same as: Protonix) No Longer Active 10/06/2014 [facility] Flumazenil 0.1 mg, 1 mL, Route: IVP, Drug form: INJ, Q5Min, Dosing Weight 106.818, kg, PRN Other -See Comment, Start date: 10/06/14 15:01:00, Duration: 30 day, Stop date: 11/05/14 15:00:00Notes: (Same as: Romaz icon) No Longer Active 10/06/2014 [facility] Naloxone 0.1 mg, 0.25 mL, Route: IVP, Drug form: INJ, Q2MIN, Dosing Weight 106.818, kg, PRN Narcotic Reversal, Start date: 10/06/14 15:01:00, Duration: 4 doses or times, Stop date: Limited # of timesNotes: Same as Narcan No Longer Active 10/06/2014 [facility] NovoLOG FlexPen 10 unit, 0.1 mL, Route: SUB-Q, Drug form: SOLN, TID-Meals, Start date: 10/06/14 12:00:00, Duration: 30 day, Stop date: 11/05/14 8:00:00Notes: Roll in palms of hands gently; Do not shake vigorously. (Same as: NovoLOG) "single patient use only" Stable for 28 days at room temperature. Expires in days from Date No Longer Active 10/06/2014 [facility] Sodium Chloride 0.154 MEQ/ML Injectable Solution 500 mL, Route: IV, Drug form: INJ, ONCE, Dosing Weight 106.818 kg, Start date: 10/06/14 11:55:00, Stop date: 10/06/14 11:55:00, Bolus Inactive 10/06/2014 [facility] Insulin Lispro 10 unit, Route: SUB-Q, Drug form: SOLN, TID-Before Meals, Dosing Weight 106.818, kg, Start date: 10/06/14 11:30:00, Duration: 30 day, Stop date: 11/05/14 7:30:00 Inactive 10/06/2014 [facility] Morphine 2 mg, 1 mL, Route: IVP, Drug form: INJ, Q4H, Dosing Weight 106.818, kg, PRN Pain, Start date: 10/06/14 11:02:00, Duration: 30 day, Stop date: 11/05/14 11:01:00Notes: (Same as:MORPhine Sulfate) No Longer Active 10/06/2014 [facility] Tylenol 650 mg, 2 tab, Route: PO, Drug form: TAB, Q6H, Dosing Weight 106.818, kg, PRN Pain, Start date: 10/06/14 11:02:00, Duration: 30 day, Stop date: 11/05/14 11:01:00Notes: Do not exceed 4 gm/day. (Same as: Tylenol) No Longer Active 10/06/2014 [facility] Insulin, Aspart, Human 6 unit, 0.06 mL, Route: SUB-Q, Drug form: SOLN, TID-Before Meals, Dosing Weight 106.818, kg, PRN Blood Glucose Results, Start date: 10/06/14 10:59:00, Duration: 30 day, Stop date: 11/05/14 10:58:00Notes: Roll in palms of hands gently; Do not shake vigorously. (Same as: NovoLOG) "single patient use only" Stable for 28 days at room temperature. Expires in days from Date No Longer Active 10/06/2014 [facility] Glucagon 1 mg, Route: IM, Drug form: PDR/INJ, PRN, Dosing Weight 106.818, kg, PRN Blood Glucose Results, Start date: 10/06/14 10:59:00, Duration: 30 day, Stop date: 11/05/14 10:58:00 No Longer Active 10/06/2014 [facility] Dextrose 50% Syringe 12.5 gm, 25 mL, Route: IVP, Drug Form: INJ, Dosing Weight 106.818, kg, PRN, PRN Blood Glucose Results, Start date: 10/06/14 10:59:00, Duration: 30 day, Stop date: 11/05/14 10:58:00 No Longer Active 10/06/2014 [facility] Nitroglycerin 0.4 MG Sublingual Tablet 0.4 mg, 1 tab, Route: SL, Drug form: TAB, Q5Min, Dosing Weight 106.818, kg, PRN Chest Pain, Start date: 10/06/14 1:55:00, Duration: 30 day, Stop date: 11/05/14 1:54:00Notes: (Same as:Nitroquick, Nitrostat) "Do Not Crush" Sublingual tablet No Longer Active 10/06/2014 [facility] Atropine 0.5 mg, 5 mL, Route: IVP, Drug form: INJ, ONCE, Dosing Weight 106.818, kg, PRN Bradycardia, Start date: 10/06/14 1:55:00, symptomatic bradycardia of No Longer Active 10/06/2014 [facility] Insulin, Aspart, Human 8 unit, 0.08 mL, Route: SUB-Q, Drug form: SOLN, Sliding Scale, Dosing Weight 106.818, kg, PRN Blood Glucose Results, Start date: 10/05/14 23:34:00, Duration: 30 day, Stop date: 11/04/14 23:33:00Notes: Roll in palms of hands gently; Do not shake vigorously. (Same as: NovoLOG) "single patient use only" Stable for 28 days at room temperature. Expires in days from Date No Longer Active 10/06/2014 [facility] Dextrose 50% Syringe 25 gm, 50 mL, Route: IVP, Drug Form: INJ, Dosing Weight 106.818, kg, PRN, PRN Blood Glucose Results, Start date: 10/05/14 23:34:00, Duration: 30 day, Stop date: 11/04/14 23:33:00 No Longer Active 10/06/2014 [facility] Glucagon 1 mg, Route: IM, Drug form: PDR/INJ, PRN, Dosing Weight 106.818, kg, PRN Blood Glucose Results, Start date: 10/05/14 23:34:00, Duration: 30 day, Stop date: 11/04/14 23:33:00 No Longer Active 10/06/2014 [facility] Zofran 4 mg, 2 mL, Route: IV, Drug form: INJ, Q8H, Dosing Weight 106.818, kg, PRN Nausea, Start date: 10/05/14 23:21:00, Duration: 30 day, Stop date: 11/04/14 23:20:00Notes: (Same as: Zofran) No Longer Active 10/06/2014 [facility] Sodium Chloride 0.154 MEQ/ML Injectable Solution 100 mL, Rate: 10 ml/hr, Infuse over: 10 hr, Route: IV, Dosing Weight 106.818 kg, Total Volume: 100, Start date: 10/05/14 23:21:00, Duration: 72 hr, Stop date: 10/08/14 23:20:00 No Longer Active 10/06/2014 [facility] Saline Flush 0.9% 10 ml, Route: IVP, Drug Form: INJ, Dosing Weight 106.818, kg, PRN, PRN Line Flush, Start date: 10/05/14 23:21:00, Duration: 30 day, Stop date: 11/04/14 23:20:00Notes: (Same as: BD Posiflush) No Longer Active 10/06/2014 [facility] 1/2NS + KCL 20mEq/L 1000ml (Premix) 1,000 mL 1,000 mL, Rate: 125 ml/hr, Infuse over: 8 hr, Route: IV, Dosing Weight 106.818 kg, Total Volume: 1,000, Start date: 10/05/14 23:21:00, Duration: 30 day, Stop date: 11/04/14 23:20:00 No Longer Active 10/06/2014 [facility] Sodium Chloride 0.154 MEQ/ML Injectable Solution 500 mL, 500 ml/hr, Infuse Over: 1 hr, Route: IV, 500, Drug form: INJ, ONCE, Priority: STAT, Dosing Weight 106.818 kg, Start date: 10/05/14 22:28:00, Duration: 1 doses or times, Stop date: 10/05/14 22:28:00 Inactive 10/06/2014 [facility] Zofran 4 mg, 2 mL, Route: IVP, Drug form: INJ, ONCE, Dosing Weight 106.818, kg, Start date: 10/05/14 22:28:00, Stop date: 10/05/14 22:28:00Notes: (Same as: Zofran) Inactive 10/06/2014 [facility] Morphine 4 mg, 2 mL, Route: IVP, Drug form: INJ, ONCE, Dosing Weight 106.818, kg, Start date: 10/05/14 22:27:00, Stop date: 10/05/14 22:27:00Notes: (Same as:MORPhine Sulfate) Inactive 10/06/2014 [facility] Sodium Chloride 0.154 MEQ/ML Injectable Solution 500 mL, 500 ml/hr, Infuse Over: 1 hr, Route: IV, 500, Drug form: INJ, ONCE, Priority: STAT, Dosing Weight 106.818 kg, Start date: 10/05/14 22:25:00, Duration: 1 doses or times, Stop date: 10/05/14 22:25:00 Inactive 10/06/2014 [facility] Protonix 80 mg, Route: IVP, Drug form: INJ, ONCE, Start date: 10/05/14 19:51:00, Stop date: 10/05/14 19:51:00Notes: For IV push reconstitute with 10 ml 0.9% sodium chloride and push over 2 minutes. (Same as: Protonix) Inactive 10/06/2014 [facility] 3 ML Insulin Lispro 100 UNT/ML Prefilled Syringe [Humalog] 15 unit, SUB-Q, TID-Before Meals Active 10/06/2014 [facility] 3 ML insulin detemir 100 UNT/ML Prefilled Syringe [Levemir] 60 unit, SUB-Q, Bedtime Active 10/06/2014 [facility] oxybutynin 10 mg oral tablet, extended release 10 mg=1 tab, PO, Daily Active 10/06/2014 [facility] lisinopril 30 mg oral tablet 30 mg=1 tab, PO, BID Active 10/06/2014 [facility] nitrofurantoin macrocrystals-monohydrate 100 mg oral capsule (Macrobid) 100 mg=1 cap, PO, Q12H, x7 days; started 09/21/14Special Instructions: x7 days; started 09/21/14 No Longer Active 10/06/2014 [facility] Esomeprazole 40 MG Enteric Coated Capsule [Nexium] 40 mg=1 cap, PO, Daily Active 10/06/2014 [facility] Sodium Chloride 0.154 MEQ/ML Injectable Solution 500 mL, 500 ml/hr, Infuse Over: 1 hr, Route: IV, 500, Drug form: INJ, ONCE, Priority: STAT, Dosing Weight 106.818 kg, Start date: 10/05/14 19:47:00, Duration: 1 doses or times, Stop date: 10/05/14 19:47:00 Inactive 10/06/2014 [facility] Sodium Chloride 0.9% IV 20 mL + pantoprazole 80 mg 20 mL, Rate: 240 ml/hr, Infuse over: 5 minutes, Route: IVP, Dosing Weight 106.818 kg, Total Volume: 20, Start date: 10/05/14 19:46:00, Duration: 1 doses or times, Stop date: 10/05/14 19:50:00 Inactive 10/06/2014 [facility] sitagliptin 50 MG Oral Tablet [Januvia] 50 mg=1 tab, PO, Daily Active 10/06/2014 [facility] Zofran 4 mg, 2 mL, Route: IVP, Drug form: INJ, ONCE, Dosing Weight 106.818, kg, Priority: STAT, Start date: 10/05/14 19:46:00, Stop date: 10/05/14 19:46:00Notes: (Same as: Jeremiah) Inactive 10/06/2014 [facility] tramadol hydrochloride 50 MG Oral Tablet [Ultram] 1 - 2 tabs, PO, Q4-6H, .(Type PRN Reason Here...), # 30 tab, 0 Refill(s) Active 08/11/2014 [facility] Acetaminophen 325 MG / Hydrocodone Bitartrate 5 MG Oral Tablet [Jenkins 5/325] 1-2 tab, PO, Q4-6H, Pain, # 15 tab, 0 Refill(s) Active 06/10/2014 [facility] Sulfamethoxazole 800 MG / Trimethoprim 160 MG Oral Tablet [Bactrim] 1 tab, PO, BID, # 14 tab, 0 Refill(s) Active 06/10/2014 [facility] Acetaminophen 325 MG / Hydrocodone Bitartrate 5 MG Oral Tablet [Jenkins 5/325] 2 tab, Route: PO, Drug Form: TAB, Dosing Weight 106.818, kg, ONCE, Start date: 06/10/14 0:24:00, Stop date: 06/10/14 0:24:00Notes: (Same as: Jenkins 325/5) Do not exceed 4gm/day of acetaminophen. Inactive 06/10/2014 [facility] Insulin, Regular, Pork 10 unit, 0.1 mL, Route: IVP, Drug form: INJ, ONCE, Dosing Weight 104.545, kg, Priority: STAT, Start date: 04/01/14 10:51:00, Stop date: 04/01/14 10:51:00Notes: (Same as: Humulin R and NovoLIN R) (Do not shake) Inactive 04/01/2014 [facility] Sodium Chloride 0.154 MEQ/ML Injectable Solution 1,000 mL, 1,000 ml/hr, Infuse Over: 1 hr, Route: IV, 1,000, Drug form: INJ, ONCE, Priority: STAT, Dosing Weight 104.545 kg, Start date: 04/01/14 10:50:00, Duration: 1 doses or times, Stop date: 04/01/14 10:50:00 Inactive 04/01/2014 [facility] Cyclobenzaprine hydrochloride 5 MG Oral Tablet [Flexeril] 5 mg=1 tab, PO, TID, # 30 tab, 0 Refill(s) Active 02/04/2014 [facility] Acetaminophen 325 MG / Hydrocodone Bitartrate 10 MG Oral Tablet [Jenkins 10/325] 1 tab, PO, Q6H, for pain, # 24 tab, 0 Refill(s) Active 02/04/2014 [facility] Acetaminophen 325 MG / Hydrocodone Bitartrate 5 MG Oral Tablet 1 tab, Route: PO, Drug Form: TAB, Dosing Weight 104.545, kg, ONCE, STAT, Start date: 02/04/14 1:17:00, Stop date: 02/04/14 1:17:00(Same as: Jenkins 325/5) Do not exceed 4gm/day of acetaminophen. Inactive 02/04/2014 [facility] Insulin, Regular, Pork 5 unit, 0.05 mL, Route: SUB-Q, Drug form: INJ, ONCE, Dosing Weight 104.545, kg, Priority: STAT, Start date: 02/04/14 1:17:00, Stop date: 02/04/14 1:17:00(Same as: Humulin R and NovoLIN R) (Do not shake) Inactive 02/04/2014 [facility] Ketorolac 30 mg, Route: IM, Drug form: INJ, ONCE, Dosing Weight 104.545, kg, Priority: STAT, Start date: 02/03/14 22:21:00, Stop date: 02/03/14 22:21:00 Inactive 02/04/2014 [facility] Flexeril 10 mg, Route: PO, ONCE, Dosing Weight 104.545, kg, Priority: STAT, Start date: 02/03/14 22:21:00, Stop date: 02/03/14 22:21:00 Inactive 02/04/2014 [facility] ibuprofen 800 mg oral tablet 800 mg, 1 tab, PO, Q8H, PRN, Take with food, 30 tab, Pain, Substitution AllowedTake with food PO Active [facility] 05/21/2013 [facility] Ultracet oral tablet 1 tab, PO, Q4H, PRN, 20 tab, for pain, Substitution Allowed, Maintenance, TAB [facility] Ultram 50 mg oral tablet 100 mg, 2 tab, Route: PO, Drug form: TAB, ONCE, Dosing Weight 105.455, kg, Priority: STAT, Start date: 05/20/13 18:45:00, Stop date: 05/20/13 18:45:00 PO No Longer Active [facility] 05/20/2013 [facility] Motrin 800 mg, 2 tab, Route: PO, Drug form: TAB, ONCE, Dosing Weight 105.455, kg, Priority: STAT, Start date: 05/20/13 18:15:00, Stop date: 05/20/13 18:15:00 PO No Longer Active [facility] 05/20/2013 [facility] Jenkins 5/325 oral tablet 1 tab, PO, Q4H, PRN, 12 tab, for pain, Substitution Allowed, Maintenance, TAB PO Active [facility] 12/25/2012 [facility] Cipro 500 mg oral tablet 500 mg, 1 tab, PO, Q12H, 20 tab, Substitution Allowed, TAB PO Active [facility] 12/25/2012 [facility] Lisinopril 1 tablet Orally Active 5 MG Orally two times a day [facility] Furosemide 1 tablet Orally Active 20 MG Orally Once a day [facility] Pravastatin Sodium 1 tablet Orally Active 20 MG Orally Once a day [facility] Hyoscyamine Sulfate 1 tablet under the tongue and allow to dissolve before meals as needed Sublingual Active 0.125 MG Sublingual every 4 hrs [facility] Insulin Detemir not defined Subcutaneous Active 100 UNIT/ML Subcutaneous [facility] Paroxetine HCl 1 tablet in the morning Orally Active 20 MG Orally Once a day [facility] Tylenol 2 tablets as needed Orally Active 325 MG Orally every 6 hrs [facility] Lasix 1 tablet Orally Active 40 MG Orally Once a day [facility] Pepcid 1 tablet at bedtime Orally Active 20 MG Orally twice a day [facility] NovoLog Flexpen 30 units every meal Subcutaneous Active 100 UNIT/ML Subcutaneous 30 UNITS [facility] Lactulose 15 ml Orally Active 20 GM/30ML Orally Once a day [facility] Lyrica 1 capsule Orally Active 50 MG Orally Twice a day [facility] Levofloxacin 1 tablet Orally Active 250 MG Orally Once a day [facility] Paulo Harden Tramadol-Acetaminophen 2 tablets as needed Orally Active 37.5- 325 MG Orally every 6 hrs Jake Harden Lisinopril 1 tablet Orally Active 30 MG Orally Once a day Jake Harden Metronidazole 1 tablet Orally Active 500 MG Orally three times a day Jake Harden Methenamine Hippurate 1 tablet Orally Active 1 GM Orally Twice a day Jake Zaman Lisinopril 1 tablet Orally Active 30 MG Orally Once a day [facility] Lisinopril 1 tablet Orally Active 10 MG Orally twice a day (bid) Jake Harden Paxil 1 tablet in the morning Orally Active 20 MG Orally Once a day Jake Paulo Harden Carvedilol not defined Orally Active 3.125 MG Orally Jake Harden Allergies, Adverse Reactions, Alerts Substance Category Reaction Severity Reaction type Status Date Reported Comments Source pneomonia vaccine Adverse Reaction Info Not Available Adverse Reaction Active 07/28/2017 Paulo Zaman flu vaccine Adverse Reaction Info Not Available Adverse Reaction Active 07/28/2017 [facility] Metformin HCl Adverse Reaction Info Not Available Adverse Reaction Active 07/28/2017 [facility] influenza virus vaccine, inactivated Assertion Influenza virus vaccine Drug allergy Active [facility] metformin Assertion Drug allergy Active [facility] Januvia Assertion Drug allergy Active [facility] Immunizations Immunization Date Given Site Status Last Updated Comments Source pneumococcal 23-valent vaccine 10/12/2016 Not Given [facility] Results Order Name Results Value Reference Range Date Interpretation Comments Source CARDIAC ENZYMES Troponin-I null 0.00 - 0.40 07/18/2018 [facility] CARDIAC ENZYMES Troponin-I null 0.00 - 0.40 07/18/2018 [facility] IMMUNOLOGY Hep Bs Ag Negative *NA* (07/17/18 5:57 PM) Negative 07/17/2018 [facility] CARDIAC ENZYMES proBNP 252 pg/mL 0 - 125 07/17/2018 [facility] CARDIAC ENZYMES Total CK 38 unit/L 12 - 191 07/17/2018 [facility] CARDIAC ENZYMES Troponin-I null 0.00 - 0.40 07/17/2018 [facility] CHEM PANEL Magnesium Lvl 2.2 mg/dL 1.8 - 2.4 07/17/2018 [facility] CHEM PANEL A/G Ratio 0.6 0.7 - 1.6 07/17/2018 [facility] CHEM PANEL B/C Ratio 13 6 - 25 07/17/2018 [facility] CHEM PANEL Globulin 5.0 g/dL 2.7 - 4.2 07/17/2018 [facility] CHEM PANEL AGAP 11.4 meq/L 10.0 - 20.0 07/17/2018 [facility] CHEM PANEL eGFR 16 mL/min/1.73m2 07/17/2018 Result Comment: The eGFR is calculated using the CKD-EPI formula. In most young, healthy individuals the eGFR will be >90 mL/min/1.73m2. The eGFR declines with age. An eGFR of 60-89 may be normal in some populations, particularly the elderly, for whom the CKD-EPI formula has not been extensively validated. Use of the eGFR is not recommended in the following populations: Individuals with unstable creatinine concentrations, including patients and those with serious co-morbid conditions. Patients with extremes in muscle mass or diet. The data above are obtained from the National Kidney Disease Education Program (NKDEP) which additionally recommends that when the eGFR is used in patients with extremes of body mass index for purposes of drug dosing, the eGFR should be multiplied by the estimated BMI. [facility] CHEM PANEL Bili Total 0.3 mg/dL 0.2 - 1.3 07/17/2018 [facility] CHEM PANEL Alk Phos 151 unit/L 39 - 136 07/17/2018 [facility] CHEM PANEL AST 15 unit/L 0 - 37 07/17/2018 [facility] CHEM PANEL Calcium Lvl 8.2 mg/dL 8.5 - 10.5 07/17/2018 [facility] CHEM PANEL ALT 19 unit/L 0 - 65 07/17/2018 [facility] CHEM PANEL Chloride Lvl 99 meq/L 95 - 109 07/17/2018 [facility] CHEM PANEL CO2 29 meq/L 24 - 32 07/17/2018 [facility] CHEM PANEL Albumin Lvl 3.0 g/dL 3.5 - 5.0 07/17/2018 [facility] CHEM PANEL Total Protein 8.0 g/dL 6.4 - 8.4 07/17/2018 [facility] CHEM PANEL Potassium Lvl 4.4 meq/L 3.5 - 5.1 07/17/2018 [facility] CHEM PANEL Creatinine Lvl 3.05 mg/dL 0.50 - 1.40 07/17/2018 [facility] CHEM PANEL Sodium Lvl 135 meq/L 135 - 145 07/17/2018 [facility] CHEM PANEL Glucose Lvl 339 mg/dL 70 - 99 07/17/2018 [facility] CHEM PANEL BUN 41 mg/dL 7 - 22 07/17/2018 [facility] HEMATOLOGY Monocytes 10.5 % 2.0 - 12.0 07/17/2018 [facility] HEMATOLOGY Eosinophils 2.9 % 0.0 - 4.0 07/17/2018 [facility] HEMATOLOGY Lymphocytes # 1.1 K/CMM 1.0 - 5.5 07/17/2018 [facility] HEMATOLOGY Basophils # 0.1 K/CMM 0.0 - 0.2 07/17/2018 [facility] HEMATOLOGY Basophils 0.9 % 0.0 - 1.0 07/17/2018 [facility] HEMATOLOGY Neutrophils # 3.9 K/CMM 1.5 - 8.1 07/17/2018 [facility] Monocytes # 0.6 K/CMM 0.0 - 0.8 07/17/2018 [facility] HEMATOLOGY Eosinophils # 0.2 K/CMM 0.0 - 0.5 07/17/2018 [facility] HEMATOLOGY Segs 66.6 % 45.0 - 75.0 07/17/2018 [facility] Lymphocytes 19.1 % 20.0 - 40.0 07/17/2018 [facility] PTT 46.1 s 22.9 - 35.8 07/17/2018 [facility] HEMATOLOGY PT 13.1 s 12.0 - 14.7 07/17/2018 [facility] HEMATOLOGY INR 0.99 0.85 - 1.17 07/17/2018 [facility] HEMATOLOGY Platelet 176 K/CMM 133 - 450 07/17/2018 [facility] HEMATOLOGY MPV 9.5 fL 7.4 - 10.4 07/17/2018 [facility] HEMATOLOGY RDW 13.4 % 11.5 - 14.5 07/17/2018 [facility] HEMATOLOGY RBC 3.37 M/CMM 4.20 - 5.40 07/17/2018 [facility] HEMATOLOGY WBC 5.9 K/CMM 3.7 - 10.4 07/17/2018 [facility] MCHC 34.6 g/dL 32.0 - 36.0 07/17/2018 [facility] Hgb 10.9 g/dL 12.0 - 16.0 07/17/2018 [facility] Hct 31.5 % 36.0 - 48.0 07/17/2018 [facility] MCV 93.6 fL 80.0 - 98.0 07/17/2018 [facility] MCH 32.4 pg 27.0 - 31.0 07/17/2018 [facility] Abdomen/Pelvis w IV contrast CT Abdomen/Pelvis w IV contrast CT Clinical Indication: - LLQ abd pain; Comparison: 11/20/2017 TECHNIQUE: Sequential trans-axial images were obtained with a multi-detector helical CT after administration of iodinated contrast. Coronal and sagittal reconstructions were obtained. 100 mL of omnipaque contrast material was used for the exam. No oral contrast material was used for the exam. CT Radiation Dose DLP 935.63 mGy-cm CT imaging performed at this location utilizes radiation dose optimization techniques which include one or more of the following: -Automated exposure control -Adjustment of the mA and/or kV according to patient size -Use of iterative reconstruction technique FINDINGS: CT ABDOMEN WITH CONTRAST: VISUALIZED LUNG BASES: Unremarkable. ABDOMINAL SOLID ORGANS: The contrast-enhanced images of the liver, spleen, pancreas, adrenals and kidneys are normal. The extrahepatic duct/ common bile duct appears unremarkable. The gallbladder was removed. STOMACH AND BOWEL: The stomach is unremarkable. The unopacified loops of small bowel in the abdomen are unremarkable. The unopacified loops of colon in the abdomen are unremarkable. There is a normal appendix. PERITONEUM AND RETROPERITONEUM: There is no abdominal lymphadenopathy. There is no pneumoperitoneum or ascites. The retroperitoneal region appears unremarkable. VASCULAR STRUCTURES: The abdominal aorta appears unremarkable. There are widely patent bilateral renal arteries. The mesenteric arteries appear unremarkable. The inferior vena cava appears normal. The renal veins, mesenteric veins and portal vein appear unremarkable. OSSEOUS STRUCTURES: There are no definite significant osseous abnormalities seen. CT PELVIS WITH CONTRAST: BOWEL: The unopacified loops of small bowel in the pelvis are unremarkable. The unopacified loops of colon in the pelvis are unremarkable. There is a normal appendix. The uterus was removed. The vaginal cuff demonstrates no abnormality. PERITONEUM AND EXTRAPERITONEAL REGIONS: There is no pelvic lymphadenopathy or ascites. The inguinal regions are unremarkable. BLADDER: The bladder appears unremarkable. OSSEOUS STRUCTURES: There are no definite significant osseous abnormalities seen. IMPRESSION: 1. No acute abnormality of the abdomen and pelvis. 2. Normal appendix. 3. Previous cholecystectomy. SL: [id number] 07/17/2018 - - Read by: Kolton Blanca MD Dictated Date/time: 07/17/18 14:31 Electronically Signed by: Kolton Blanca MD 07/17/18 14:38 FINAL REPORT [facility] CTA Chest CTA Clinical Indication: - chest pressure, sob; right upper back pain. The pain exacerbated with breathing Comparison: 04/28/2018 TECHNIQUE: CTA of the pulmonary arteries was performed with 100 ml Omnipaque 300 intravenous contrast. Helical imaging performed apices to the lung bases. Multiplanar and 3-D MIP angiographic reconstructions are reviewed. CT Radiation Dose DLP: 693.4 mGy-cm CT imaging performed at this location utilizes radiation dose optimization techniques which include one or more of the following: -Automated exposure control -Adjustment of the mA and/or kV according to patient size -Use of iterative reconstruction technique FINDINGS: PULMONARY ARTERIES: Normal enhancement without intraluminal filling defect. MEDIASTINUM: The thoracic aorta is normal. The mediastinal contents are normal. LUNGS: The lungs are clear. No pleural abnormality. UPPER ABDOMEN: Survey may be limited by early phase of contrast enhancement. No abnormality demonstrated. MUSCULOSKELETAL: The skeleton is intact. IMPRESSION: 1. No evidence of pulmonary embolism or aortic dissection. SL: [id number] 07/17/2018 - - Read by: Kolton Blanca MD Dictated Date/time: 07/17/18 14:28 Electronically Signed by: Kolton Blanca MD 07/17/18 14:31 FINAL REPORT [facility] Chest 1view DX Chest 1view DX EXAM: XR CHEST SINGLE VIEW HISTORY: 62 years year-old Female with - SOB TECHNIQUE: A single AP view of the chest was obtained. COMPARISON: Chest radiograph 04/29/2018 FINDINGS: The cardiomediastinal silhouette is within normal limits. Mild subsegmental atelectasis in the left lung base. No definite pneumothorax is seen. No acute osseous abnormality is evident. Prior right internal jugular dialysis catheter is no longer identified. IMPRESSION: 1. Mild subsegmental atelectasis in the left lung base. SL: [id number] 07/17/2018 - - Read by: Beatris Parker MD Dictated Date/time: 07/17/18 12:08 Electronically Signed by: Beatris Parker MD 07/17/18 12:10 FINAL REPORT [facility] PANEL eGFR 16 mL/min/1.73m2 04/30/2018 Result Comment: The eGFR is calculated using the CKD-EPI formula. In most young, healthy individuals the eGFR will be >90 mL/min/1.73m2. The eGFR declines with age. An eGFR of 60-89 may be normal in some populations, particularly the elderly, for whom the CKD-EPI formula has not been extensively validated. Use of the eGFR is not recommended in the following populations: Individuals with unstable creatinine concentrations, including patients and those with serious co-morbid conditions. Patients with extremes in muscle mass or diet. The data above are obtained from the National Kidney Disease Education Program (NKDEP) which additionally recommends that when the eGFR is used in patients with extremes of body mass index for purposes of drug dosing, the eGFR should be multiplied by the estimated BMI. [facility] CHEM PANEL Potassium Lvl 4.4 meq/L 3.5 - 5.1 04/30/2018 [facility] CHEM PANEL Chloride Lvl 105 meq/L 95 - 109 04/30/2018 [facility] CHEM PANEL Sodium Lvl 137 meq/L 135 - 145 04/30/2018 [facility] CHEM PANEL CO2 24 meq/L 24 - 32 04/30/2018 [facility] CHEM PANEL Creatinine Lvl 3.03 mg/dL 0.50 - 1.40 04/30/2018 [facility] CHEM PANEL Calcium Lvl 8.3 mg/dL 8.5 - 10.5 04/30/2018 [facility] CHEM PANEL AGAP 12.4 meq/L 10.0 - 20.0 04/30/2018 [facility] CHEM PANEL Glucose Lvl 255 mg/dL 70 - 99 04/30/2018 [facility] CHEM PANEL BUN 57 mg/dL 7 - 22 04/30/2018 [facility] Chest 1view DX Chest 1view DX Clinical Indication:62 years Female with - CP Comparison: Chest x-ray 04/27/2018 FINDINGS: Lines: Right IJ tunneled dialysis catheter with tip at the upper atrium The single frontal chest radiograph shows low lung volumes. Mild bibasilar and perihilar opacities No pleural effusion. No pneumothorax. Cardiac silhouette is normal. Pulmonary vasculature is prominent. The trachea is midline. There are no acute osseous abnormalities noted. IMPRESSION: No acute cardiopulmonary abnormality. Low lung volumes with minimal bibasilar atelectasis. Perihilar opacities may be due to mild central venous congestion or vascular crowding. 04/29/2018 - - Read by: Filemon Patel MD Dictated Date/time: 04/29/18 16:03 Electronically Signed by: Filemon Patel MD 04/29/18 16:04 FINAL REPORT [facility] CARDIAC ENZYMES Total CK 33 unit/L 12 - 191 04/29/2018 [facility] CARDIAC ENZYMES Troponin-I null 0.00 - 0.40 04/29/2018 [facility] CHEM PANEL eGFR 28 mL/min/1.73m2 04/29/2018 Result Comment: The eGFR is calculated using the CKD-EPI formula. In most young, healthy individuals the eGFR will be >90 mL/min/1.73m2. The eGFR declines with age. An eGFR of 60-89 may be normal in some populations, particularly the elderly, for whom the CKD-EPI formula has not been extensively validated. Use of the eGFR is not recommended in the following populations: Individuals with unstable creatinine concentrations, including patients and those with serious co-morbid conditions. Patients with extremes in muscle mass or diet. The data above are obtained from the National Kidney Disease Education Program (NKDEP) which additionally recommends that when the eGFR is used in patients with extremes of body mass index for purposes of drug dosing, the eGFR should be multiplied by the estimated BMI. [facility] CHEM PANEL AST 10 unit/L 0 - 37 04/29/2018 [facility] CHEM PANEL Alk Phos 126 unit/L 39 - 136 04/29/2018 [facility] CHEM PANEL B/C Ratio 20 6 - 25 04/29/2018 [facility] CHEM PANEL Total Protein 7.0 g/dL 6.4 - 8.4 04/29/2018 [facility] CHEM PANEL Albumin Lvl 3.5 g/dL 3.5 - 5.0 04/29/2018 [facility] CHEM PANEL Globulin 3.5 g/dL 2.7 - 4.2 04/29/2018 [facility] CHEM PANEL A/G Ratio 1.0 0.7 - 1.6 04/29/2018 [facility] CHEM PANEL ALT 23 unit/L 0 - 65 04/29/2018 [facility] CHEM PANEL Bili Total 0.3 mg/dL 0.2 - 1.3 04/29/2018 [facility] CHEM PANEL Chloride Lvl 105 meq/L 95 - 109 04/29/2018 [facility] CHEM PANEL AGAP 9.7 meq/L 10.0 - 20.0 04/29/2018 [facility] CHEM PANEL CO2 29 meq/L 24 - 32 04/29/2018 [facility] CHEM PANEL Calcium Lvl 8.3 mg/dL 8.5 - 10.5 04/29/2018 [facility] CHEM PANEL Potassium Lvl 3.7 meq/L 3.5 - 5.1 04/29/2018 [facility] CHEM PANEL Glucose Lvl 85 mg/dL 70 - 99 04/29/2018 [facility] CHEM PANEL Creatinine Lvl 1.86 mg/dL 0.50 - 1.40 04/29/2018 [facility] CHEM PANEL Sodium Lvl 140 meq/L 135 - 145 04/29/2018 [facility] CHEM PANEL BUN 37 mg/dL 7 - 22 04/29/2018 [facility] HEMATOLOGY MPV 8.8 fL 7.4 - 10.4 04/29/2018 [facility] HEMATOLOGY WBC 4.9 K/CMM 3.7 - 10.4 04/29/2018 [facility] MCH 29.4 pg 27.0 - 31.0 04/29/2018 [facility] RDW 15.3 % 11.5 - 14.5 04/29/2018 [facility] MCHC 32.4 g/dL 32.0 - 36.0 04/29/2018 [facility] Platelet 189 K/CMM 133 - 450 04/29/2018 [facility] RBC 3.42 M/CMM 4.20 - 5.40 04/29/2018 [facility] Hct 31.1 % 36.0 - 48.0 04/29/2018 [facility] Hgb 10.1 g/dL 12.0 - 16.0 04/29/2018 [facility] MCV 90.9 fL 80.0 - 98.0 04/29/2018 [facility] HEMATOLOGY Segs 64.5 % 45.0 - 75.0 04/29/2018 [facility] Monocytes 9.2 % 2.0 - 12.0 04/29/2018 [facility] Lymphocytes 22.0 % 20.0 - 40.0 04/29/2018 [facility] HEMATOLOGY Eosinophils 3.6 % 0.0 - 4.0 04/29/2018 [facility] HEMATOLOGY Monocytes # 0.5 K/CMM 0.0 - 0.8 04/29/2018 [facility] HEMATOLOGY Lymphocytes # 1.1 K/CMM 1.0 - 5.5 04/29/2018 [facility] HEMATOLOGY Eosinophils # 0.2 K/CMM 0.0 - 0.5 04/29/2018 [facility] HEMATOLOGY Basophils 0.7 % 0.0 - 1.0 04/29/2018 [facility] HEMATOLOGY Segs-Bands # 3.2 K/CMM 1.5 - 8.1 04/29/2018 [facility] CHEM PANEL Calcium Lvl 8.1 mg/dL 8.5 - 10.5 04/29/2018 [facility] CHEM PANEL eGFR 16 mL/min/1.73m2 04/29/2018 Result Comment: The eGFR is calculated using the CKD-EPI formula. In most young, healthy individuals the eGFR will be >90 mL/min/1.73m2. The eGFR declines with age. An eGFR of 60-89 may be normal in some populations, particularly the elderly, for whom the CKD-EPI formula has not been extensively validated. Use of the eGFR is not recommended in the following populations: Individuals with unstable creatinine concentrations, including patients and those with serious co-morbid conditions. Patients with extremes in muscle mass or diet. The data above are obtained from the National Kidney Disease Education Program (NKDEP) which additionally recommends that when the eGFR is used in patients with extremes of body mass index for purposes of drug dosing, the eGFR should be multiplied by the estimated BMI. [facility] CHEM PANEL BUN 71 mg/dL 7 - 22 04/29/2018 [facility] CHEM PANEL Sodium Lvl 140 meq/L 135 - 145 04/29/2018 [facility] CHEM PANEL Potassium Lvl 4.5 meq/L 3.5 - 5.1 04/29/2018 [facility] CHEM PANEL Creatinine Lvl 3.03 mg/dL 0.50 - 1.40 04/29/2018 [facility] CHEM PANEL Chloride Lvl 107 meq/L 95 - 109 04/29/2018 [facility] CHEM PANEL Glucose Lvl 159 mg/dL 70 - 99 04/29/2018 [facility] CHEM PANEL CO2 22 meq/L 24 - 32 04/29/2018 [facility] CHEM PANEL AGAP 15.5 meq/L 10.0 - 20.0 04/29/2018 [facility] HEMATOLOGY MCV 91.8 fL 80.0 - 98.0 04/29/2018 [facility] HEMATOLOGY MPV 9.2 fL 7.4 - 10.4 04/29/2018 [facility] Platelet 179 K/CMM 133 - 450 04/29/2018 [facility] HEMATOLOGY RDW 15.8 % 11.5 - 14.5 04/29/2018 [facility] MCHC 32.3 g/dL 32.0 - 36.0 04/29/2018 [facility] MCH 29.7 pg 27.0 - 31.0 04/29/2018 [facility] HEMATOLOGY WBC 5.6 K/CMM 3.7 - 10.4 04/29/2018 [facility] RBC 3.44 M/CMM 4.20 - 5.40 04/29/2018 [facility] Hct 31.6 % 36.0 - 48.0 04/29/2018 [facility] Hgb 10.2 g/dL 12.0 - 16.0 04/29/2018 [facility] Monocytes # 0.6 K/CMM 0.0 - 0.8 04/29/2018 [facility] Lymphocytes # 1.2 K/CMM 1.0 - 5.5 04/29/2018 [facility] Eosinophils # 0.2 K/CMM 0.0 - 0.5 04/29/2018 [facility] HEMATOLOGY Lymphocytes 21.8 % 20.0 - 40.0 04/29/2018 [facility] HEMATOLOGY Eosinophils 4.1 % 0.0 - 4.0 04/29/2018 [facility] Monocytes 11.3 % 2.0 - 12.0 04/29/2018 [facility] HEMATOLOGY Segs-Bands # 3.5 K/CMM 1.5 - 8.1 04/29/2018 [facility] HEMATOLOGY Basophils 0.9 % 0.0 - 1.0 04/29/2018 [facility] HEMATOLOGY Segs 61.9 % 45.0 - 75.0 04/29/2018 [facility] HEMATOLOGY Eosinophils 3.7 % 0.0 - 4.0 04/28/2018 [facility] HEMATOLOGY Lymphocytes 17.0 % 20.0 - 40.0 04/28/2018 [facility] HEMATOLOGY Monocytes 10.8 % 2.0 - 12.0 04/28/2018 [facility] HEMATOLOGY Segs 67.4 % 45.0 - 75.0 04/28/2018 [facility] HEMATOLOGY Basophils 1.1 % 0.0 - 1.0 04/28/2018 [facility] HEMATOLOGY Eosinophils # 0.2 K/CMM 0.0 - 0.5 04/28/2018 [facility] Segs-Bands # 3.2 K/CMM 1.5 - 8.1 04/28/2018 [facility] Basophils # 0.1 K/CMM 0.0 - 0.2 04/28/2018 [facility] Lymphocytes # 0.8 K/CMM 1.0 - 5.5 04/28/2018 [facility] Monocytes # 0.5 K/CMM 0.0 - 0.8 04/28/2018 [facility] WBC 4.8 K/CMM 3.7 - 10.4 04/28/2018 [facility] MCV 93.4 fL 80.0 - 98.0 04/28/2018 [facility] MCH 30.3 pg 27.0 - 31.0 04/28/2018 [facility] Hct 35.2 % 36.0 - 48.0 04/28/2018 [facility] RDW 15.6 % 11.5 - 14.5 04/28/2018 [facility] MCHC 32.4 g/dL 32.0 - 36.0 04/28/2018 [facility] RBC 3.76 M/CMM 4.20 - 5.40 04/28/2018 [facility] Hgb 11.4 g/dL 12.0 - 16.0 04/28/2018 [facility] Platelet 166 K/CMM 133 - 450 04/28/2018 [facility] MPV 9.1 fL 7.4 - 10.4 04/28/2018 [facility] Chest Pulmonary Embolism CTA Chest Pulmonary Embolism CTA Clinical Indication: Shortness of breath, questionable pulmonary embolism; Comparison: October 08, 2016 TECHNIQUE: Sequential trans-axial images were obtained thru the chest and upper abdomen after administration of iodinated contrast. CTA protocol was performed with 3-D postprocessing reconstruction MIPs and volume rendering. Coronal and sagittal reconstructions were obtained. 100 cc of nonionic contrast material was used for the exam. Dose: UHE=906.04 mGy-cm FINDINGS: LUNG PARENCHYMA AND PLEURA: There are no lung nodules. There is no significant interstitial lung disease. There is right lower lobe atelectasis. There is no evidence of any focal consolidation. There is elevation of the right hemidiaphragm. There is no pneumothorax. AIRWAY: The central airway is normal. . MEDIASTINUM: No significant mediastinal lymphadenopathy. HEART: There is no evidence of RV strain. The cardiac chambers are otherwise unremarkable. There is no pericardial effusion. VASCULAR STRUCTURES: There are no segmental pulmonary emboli noted. The main, right and left pulmonary arteries are normal. The great vessels are unremarkable. The thoracic aorta is is free of aneurysm or dissection.. The superior vena cava is unremarkable. OSSEOUS STRUCTURES: There are no definite significant osseous abnormalities seen. VISUALIZED UPPER ABDOMEN: The visualized upper abdomen is within normal limits. IMPRESSION: 1. No evidence of pulmonary emboli. 2. Elevation of the right hemithorax with associated atelectasis. 3. There is no evidence of consolidation, effusion, or lymphadenopathy SL: [id number] 04/28/2018 - - Read by: Kolton Blanca MD Dictated Date/time: 04/28/18 10:49 Electronically Signed by: Kolton Blanca MD 04/28/18 10:59 FINAL REPORT [facility] CARDIAC ENZYMES Troponin-I null 0.00 - 0.40 04/28/2018 [facility] SPECIAL CHEMISTRY Hgb A1C 9.8 % <=5.6 % 04/28/2018 [facility] CARDIAC ENZYMES Troponin-I null 0.00 - 0.40 04/27/2018 [facility] IMMUNOLOGY Hep Bs Ag Negative (04/27/18 12:30 PM) Negative 04/27/2018 [facility] CARDIAC ENZYMES Total CK 34 unit/L 12 - 191 04/27/2018 [facility] CARDIAC ENZYMES CK MB 1.1 ng/mL 0.5 - 3.6 04/27/2018 [facility] CARDIAC ENZYMES BNP 11 pg/mL <=100 pg/mL 04/27/2018 [facility] CARDIAC ENZYMES CK MB Index 3.2 0.0 - 2.5 04/27/2018 [facility] CHEM PANEL Lipase Lvl 127 unit/L 73 - 393 04/27/2018 [facility] CHEM PANEL Magnesium Lvl 2.2 mg/dL 1.8 - 2.4 04/27/2018 [facility] CHEM PANEL ALT 20 unit/L 0 - 65 04/27/2018 [facility] CHEM PANEL AST 12 unit/L 0 - 37 04/27/2018 [facility] CHEM PANEL Alk Phos 157 unit/L 39 - 136 04/27/2018 [facility] CHEM PANEL Bili Total 0.3 mg/dL 0.2 - 1.3 04/27/2018 [facility] CHEM PANEL Globulin 4.8 g/dL 2.7 - 4.2 04/27/2018 [facility] CHEM PANEL A/G Ratio 0.6 0.7 - 1.6 04/27/2018 [facility] CHEM PANEL B/C Ratio 38 6 - 25 04/27/2018 [facility] CHEM PANEL Albumin Lvl 3.0 g/dL 3.5 - 5.0 04/27/2018 [facility] CHEM PANEL Total Protein 7.8 g/dL 6.4 - 8.4 04/27/2018 [facility] HEMATOLOGY PT 13.7 s 12.0 - 14.7 04/27/2018 [facility] HEMATOLOGY INR 1.05 0.85 - 1.17 04/27/2018 [facility] HEMATOLOGY PTT 28.1 s 22.9 - 35.8 04/27/2018 [facility] Chest 1view DX Chest 1view DX Patient Name: KAREN ZUÑIGA : 1955; Age: 62 years y/o Female MR: [id number] Study: Chest 1view DX date 04/27/2018. Clinical Indication: - chest pain; Comparison: 11/19/2017 Cardiac and mediastinal structures are stable. Right central catheter tip is in expected region of the right atrium. No focal infiltrates within the lungs, no edema and no pneumothorax. Decreased lung volumes. Degenerative changes seen about the acromioclavicular joints bilaterally. SL: [id number]-PC 04/27/2018 - - Read by: Eric Boyd MD Dictated Date/time: 04/27/18 09:35 Electronically Signed by: Eric Boyd MD 04/27/18 09:36 FINAL REPORT [facility] CHEM PANEL Magnesium Lvl 2.1 mg/dL 1.8 - 2.4 11/20/2017 [facility] CHEM PANEL eGFR 38 mL/min/1.73m2 11/20/2017 Result Comment: The eGFR is calculated using the CKD-EPI formula. In most young, healthy individuals the eGFR will be >90 mL/min/1.73m2. The eGFR declines with age. An eGFR of 60-89 may be normal in some populations, particularly the elderly, for whom the CKD-EPI formula has not been extensively validated. Use of the eGFR is not recommended in the following populations: Individuals with unstable creatinine concentrations, including patients and those with serious co-morbid conditions. Patients with extremes in muscle mass or diet. The data above are obtained from the National Kidney Disease Education Program (NKDEP) which additionally recommends that when the eGFR is used in patients with extremes of body mass index for purposes of drug dosing, the eGFR should be multiplied by the estimated BMI. [facility] CHEM PANEL AST 14 unit/L 0 - 37 11/20/2017 [facility] CHEM PANEL Alk Phos 126 unit/L 39 - 136 11/20/2017 [facility] CHEM PANEL Bili Total 0.4 mg/dL 0.2 - 1.3 11/20/2017 [facility] CHEM PANEL Total Protein 6.9 g/dL 6.4 - 8.4 11/20/2017 [facility] CHEM PANEL B/C Ratio 36 6 - 25 11/20/2017 [facility] CHEM PANEL Albumin Lvl 2.3 g/dL 3.5 - 5.0 11/20/2017 [facility] CHEM PANEL ALT 12 unit/L 0 - 65 11/20/2017 [facility] CHEM PANEL Globulin 4.6 g/dL 2.7 - 4.2 11/20/2017 [facility] CHEM PANEL A/G Ratio 0.5 0.7 - 1.6 11/20/2017 [facility] CHEM PANEL CO2 31 meq/L 24 - 32 11/20/2017 [facility] CHEM PANEL AGAP 11.9 meq/L 10.0 - 20.0 11/20/2017 [facility] CHEM PANEL Calcium Lvl 7.9 mg/dL 8.5 - 10.5 11/20/2017 [facility] CHEM PANEL Potassium Lvl 3.9 meq/L 3.5 - 5.1 11/20/2017 [facility] CHEM PANEL Chloride Lvl 102 meq/L 95 - 109 11/20/2017 [facility] CHEM PANEL Creatinine Lvl 1.44 mg/dL 0.50 - 1.40 11/20/2017 [facility] CHEM PANEL BUN 52 mg/dL 7 - 22 11/20/2017 [facility] CHEM PANEL Glucose Lvl 260 mg/dL 70 - 99 11/20/2017 [facility] CHEM PANEL Sodium Lvl 141 meq/L 135 - 145 11/20/2017 [facility] HEMATOLOGY Hgb 9.1 g/dL 12.0 - 16.0 11/20/2017 [facility] HEMATOLOGY RBC 3.24 M/CMM 4.20 - 5.40 11/20/2017 [facility] HEMATOLOGY MCV 86.9 fL 80.0 - 98.0 11/20/2017 [facility] HEMATOLOGY Hct 28.1 % 36.0 - 48.0 11/20/2017 [facility] [place] MCH 28.1 pg 27.0 - 31.0 11/20/2017 [facility] [place] WBC 5.0 K/CMM 3.7 - 10.4 11/20/2017 [facility] [place] MPV 9.0 fL 7.4 - 10.4 11/20/2017 [facility] [place] RDW 14.4 % 11.5 - 14.5 11/20/2017 [facility] [place] MCHC 32.3 g/dL 32.0 - 36.0 11/20/2017 [facility] [place] Platelet 172 K/CMM 133 - 450 11/20/2017 [facility] [place] Eosinophils # 0.2 K/CMM 0.0 - 0.5 11/20/2017 [facility] [place] Lymphocytes 17.8 % 20.0 - 40.0 11/20/2017 [facility] [place] Segs 65.7 % 45.0 - 75.0 11/20/2017 [facility] [place] Monocytes # 0.6 K/CMM 0.0 - 0.8 11/20/2017 [facility] [place] Lymphocytes # 0.9 K/CMM 1.0 - 5.5 11/20/2017 [facility] [place] Segs-Bands # 3.3 K/CMM 1.5 - 8.1 11/20/2017 [facility] [place] Eosinophils 3.5 % 0.0 - 4.0 11/20/2017 [facility] [place] Basophils 0.9 % 0.0 - 1.0 11/20/2017 [facility] [place] Monocytes 12.1 % 2.0 - 12.0 11/20/2017 [facility] URINE AND STOOL UA Urobilinogen <=1.0 mg/dL 0.1 - 1.0 11/20/2017 [facility] URINE AND STOOL UA Color Ltyellow 11/20/2017 [facility] URINE AND STOOL UA Ketones Negative mg/dL Negative mg/dL 11/20/2017 [facility] URINE AND STOOL UA Bili Negative *NA* (11/19/17 10:47 PM) Negative 11/20/2017 [facility] URINE AND STOOL UA Glucose 150 mg/dL Negative mg/dL 11/20/2017 [facility] URINE AND STOOL UA Nitrite Negative (11/19/17 10:47 PM) Negative 11/20/2017 [facility] URINE AND STOOL UA Bacteria Moderate /HPF None Seen /HPF 11/20/2017 [facility] URINE AND STOOL UA Hyal Cast 6 /LPF 0 - 2 11/20/2017 [facility] URINE AND STOOL UA Leuk Est Moderate *ABN* (11/19/17 10:47 PM) Negative 11/20/2017 [facility] URINE AND STOOL UA Sq Epi Occasional /LPF Few /LPF 11/20/2017 [facility] URINE AND STOOL UA WBC 29 /HPF 0 - 5 11/20/2017 [facility] URINE AND STOOL UA Protein 100 mg/dL Negative mg/dL 11/20/2017 [facility] URINE AND STOOL UA [place] Yeast Few /HPF None Seen /HPF 11/20/2017 [facility] URINE AND STOOL UA Blood Small *ABN* (11/19/17 10:47 PM) Negative 11/20/2017 [facility] URINE AND STOOL UA pH 5.0 5.0 - 8.0 11/20/2017 [facility] URINE AND STOOL UA Turbidity Slight *ABN* (11/19/17 10:47 PM) Clear 11/20/2017 [facility] URINE AND STOOL UA Spec Grav 1.009 <=1.030 11/20/2017 [facility] CARDIAC ENZYMES CK MB Index 2.4 0.0 - 2.5 11/20/2017 [facility] CARDIAC ENZYMES Total CK 85 unit/L 12 - 191 11/20/2017 [facility] CARDIAC ENZYMES CK MB 2.0 ng/mL 0.5 - 3.6 11/20/2017 [facility] CARDIAC ENZYMES Troponin-I null 0.00 - 0.40 11/20/2017 [facility] CARDIAC ENZYMES BNP 26 pg/mL <=100 pg/mL 11/20/2017 [facility] CHEM PANEL Ketone Quantitative 0.44 mmol/L <=0.27 mmol/L 11/20/2017 [facility] CHEM PANEL eGFR 37 mL/min/1.73m2 11/20/2017 Result Comment: The eGFR is calculated using the CKD-EPI formula. In most young, healthy individuals the eGFR will be >90 mL/min/1.73m2. The eGFR declines with age. An eGFR of 60-89 may be normal in some populations, particularly the elderly, for whom the CKD-EPI formula has not been extensively validated. Use of the eGFR is not recommended in the following populations: Individuals with unstable creatinine concentrations, including patients and those with serious co-morbid conditions. Patients with extremes in muscle mass or diet. The data above are obtained from the National Kidney Disease Education Program (NKDEP) which additionally recommends that when the eGFR is used in patients with extremes of body mass index for purposes of drug dosing, the eGFR should be multiplied by the estimated BMI. [facility] CHEM PANEL A/G Ratio 0.5 0.7 - 1.6 11/20/2017 [facility] CHEM PANEL B/C Ratio 34 6 - 25 11/20/2017 [facility] CHEM PANEL Globulin 5.1 g/dL 2.7 - 4.2 11/20/2017 [facility] CHEM PANEL CO2 30 meq/L 24 - 32 11/20/2017 [facility] CHEM PANEL Total Protein 7.8 g/dL 6.4 - 8.4 11/20/2017 [facility] CHEM PANEL Calcium Lvl 8.1 mg/dL 8.5 - 10.5 11/20/2017 [facility] CHEM PANEL AST 15 unit/L 0 - 37 11/20/2017 [facility] CHEM PANEL ALT 17 unit/L 0 - 65 11/20/2017 [facility] CHEM PANEL Glucose Lvl 325 mg/dL 70 - 99 11/20/2017 [facility] CHEM PANEL Albumin Lvl 2.7 g/dL 3.5 - 5.0 11/20/2017 [facility] CHEM PANEL Chloride Lvl 100 meq/L 95 - 109 11/20/2017 [facility] CHEM PANEL Potassium Lvl 4.1 meq/L 3.5 - 5.1 11/20/2017 [facility] CHEM PANEL Sodium Lvl 137 meq/L 135 - 145 11/20/2017 [facility] CHEM PANEL Creatinine Lvl 1.50 mg/dL 0.50 - 1.40 11/20/2017 [facility] CHEM PANEL BUN 51 mg/dL 7 - 22 11/20/2017 [facility] CHEM PANEL Bili Total 0.2 mg/dL 0.2 - 1.3 11/20/2017 [facility] CHEM PANEL Alk Phos 168 unit/L 39 - 136 11/20/2017 [facility] CHEM PANEL AGAP 11.1 meq/L 10.0 - 20.0 11/20/2017 [facility] CHEM PANEL Magnesium Lvl 2.1 mg/dL 1.8 - 2.4 11/20/2017 [facility] CHEM PANEL Phosphorus 4.4 mg/dL 2.5 - 4.5 11/20/2017 [facility] HEMATOLOGY Eosinophils 3.7 % 0.0 - 4.0 11/20/2017 [facility] HEMATOLOGY Basophils 1.0 % 0.0 - 1.0 11/20/2017 [facility] [place] Segs-Bands # 3.8 K/CMM 1.5 - 8.1 11/20/2017 [facility] [place] Lymphocytes 16.8 % 20.0 - 40.0 11/20/2017 [facility] [place] Monocytes # 0.7 K/CMM 0.0 - 0.8 11/20/2017 [facility] [place] Eosinophils # 0.2 K/CMM 0.0 - 0.5 11/20/2017 [facility] [place] Basophils # 0.1 K/CMM 0.0 - 0.2 11/20/2017 [facility] [place] Lymphocytes # 1.0 K/CMM 1.0 - 5.5 11/20/2017 [facility] [place] Monocytes 12.3 % 2.0 - 12.0 11/20/2017 [facility] [place] Segs 66.2 % 45.0 - 75.0 11/20/2017 [facility] [place] PTT 28.5 s 22.9 - 35.8 11/20/2017 [facility] [place] MPV 8.7 fL 7.4 - 10.4 11/20/2017 [facility] [place] Platelet 209 K/CMM 133 - 450 11/20/2017 [facility] [place] Hct 30.6 % 36.0 - 48.0 11/20/2017 [facility] [place] RBC 3.49 M/CMM 4.20 - 5.40 11/20/2017 [facility] [place] WBC 5.7 K/CMM 3.7 - 10.4 11/20/2017 [facility] [place] Hgb 10.1 g/dL 12.0 - 16.0 11/20/2017 [facility] [place] MCH 29.0 pg 27.0 - 31.0 11/20/2017 [facility] [place] MCV 87.7 fL 80.0 - 98.0 11/20/2017 [facility] [place] RDW 14.4 % 11.5 - 14.5 11/20/2017 [facility] [place] MCHC 33.0 g/dL 32.0 - 36.0 11/20/2017 [facility] [place] INR 0.94 0.85 - 1.17 11/20/2017 [facility] [place] PT 12.6 s 12.0 - 14.7 11/20/2017 [facility] ED Abdomen/Pelvis IV contrast only CT ED Abdomen/Pelvis IV contrast only CT History: LLQ abdominal pain. DLP: 7.09 Exam: CT Abdomen \\T\\ Pelvis Technique: Serial axial enhanced images of the abdomen and pelvis with reconstruction images are provided. Findings: Lung bases show trace bibasilar atelectasis. No pleural effusions are seen. Gallbladder is not seen. Liver, spleen, adrenal glands, kidneys and pancreas are normal. There is no free fluid or bulky lymphadenopathy. Bowel loops and appendix are normal. Moderate stool noted. Aorta and bladder are normal. Uterus is removed. Multilevel DDD noted. There is diffuse fatty atrophy of the anterior abdominal wall muscles. Impression: 1. No acute abnormality. 2. Multilevel DDD. 3. Diffuse fatty atrophy of the anterior abdominal wall muscles. 11/20/2017 - - Read by: Bar Mike MD Dictated Date/time: 11/20/17 02:16 Electronically Signed by: Bar Mike MD 11/20/17 02:30 FINAL REPORT [facility] Brain wo contrast CT Brain wo contrast CT Addendum: Agree with the primary report. SL: PAUL Study: CT head without contrast. History: Change in mental status Comments: CT head was obtained from the vertex to the skull base utilizing multiple axial images without intravenous contrast. Total exam DLP is 1023 mgy-cm. No intracranial hemorrhage, mass effect or midline shift. Normal puentes-white matter differentiation. Intracranial ventricles and subarachnoid spaces are within normal limits. No depressed skull bone fractures. Visualized paranasal sinuses show no fluid levels to suggest acute sinusitis. Impression: No intracranial hemorrhage, mass effect or midline shift. 11/19/2017 - - Read by: Nima San MD Dictated Date/time: 11/19/17 22:58 Electronically Signed by: Nima San MD 11/19/17 23:00 FINAL REPORT - - Read by: Tish Evans MD Dictated Date/time: 11/19/17 22:51 Electronically Signed by: Tish Evans MD 11/19/17 22:58 FINAL REPORT [facility] Chest 1view DX Chest 1view DX Study: Frontal chest x-ray History: Dyspnea. Comments: The trachea is midline. The cardiomediastinal silhouette is normal in size. No pneumonia. No pleural effusions or pneumothorax. Impression: No acute cardiopulmonary disease. 11/19/2017 - - Read by: Tish Evans MD Dictated Date/time: 11/19/17 21:54 Electronically Signed by: Tish Evans MD 11/19/17 21:55 FINAL REPORT [facility] URINE AND STOOL UA Bili Negative *NA* (08/14/17 1:30 AM) Negative 08/14/2017 [facility] URINE AND STOOL UA Nitrite Positive *ABN* (08/14/17 1:30 AM) Negative 08/14/2017 [facility] URINE AND STOOL UA Urobilinogen 0.2 EU/dL 0.1 - 1.0 08/14/2017 [facility] URINE AND STOOL UA Blood Moderate *ABN* (08/14/17 1:30 AM) Negative 08/14/2017 [facility] URINE AND STOOL UA Leuk Est Negative (08/14/17 1:30 AM) Negative 08/14/2017 [facility] URINE AND STOOL UA pH 6.0 5.0 - 8.0 08/14/2017 [facility] URINE AND STOOL UA Spec Grav 1.025 <=1.030 08/14/2017 [facility] URINE AND STOOL UA Turbidity Cloudy *ABN* (08/14/17 1:30 AM) Clear 08/14/2017 [facility] URINE AND STOOL UA Ketones Negative *NA* (08/14/17 1:30 AM) Negative 08/14/2017 [facility] URINE AND STOOL UA Glucose 250 mg/dL Negative mg/dL 08/14/2017 [facility] URINE AND STOOL UA Protein >=300 mg/dL Negative mg/dL 08/14/2017 [facility] URINE AND STOOL UA Color Yellow *NA* (08/14/17 1:30 AM) Yellow 08/14/2017 [facility] URINE AND STOOL UA Hyal Cast 0- 2 (08/14/17 1:30 AM) 0 - 2 08/14/2017 [facility] URINE AND STOOL UA Mucus Few /LPF None Seen /LPF 08/14/2017 [facility] URINE AND STOOL UA Sq Epi Many /LPF Few /LPF 08/14/2017 [facility] URINE AND STOOL UA RBC 3-5 /HPF 0 - 2 08/14/2017 [facility] URINE AND STOOL UA Bacteria Moderate /HPF None Seen /HPF 08/14/2017 [facility] URINE AND STOOL UA WBC 0-2 /HPF None Seen /HPF 08/14/2017 [facility] CARDIAC ENZYMES Troponin-I null 0.00 - 0.40 08/14/2017 [facility] ELECTROLYTES AGAP 8.1 meq/L 10.0 - 20.0 08/14/2017 [facility] ELECTROLYTES eGFR 47 mL/min/1.73m2 08/14/2017 Result Comment: The eGFR is calculated using the CKD-EPI formula. In most young, healthy individuals the eGFR will be >90 mL/min/1.73m2. The eGFR declines with age. An eGFR of 60-89 may be normal in some populations, particularly the elderly, for whom the CKD-EPI formula has not been extensively validated. Use of the eGFR is not recommended in the following populations: Individuals with unstable creatinine concentrations, including patients and those with serious co-morbid conditions. Patients with extremes in muscle mass or diet. The data above are obtained from the National Kidney Disease Education Program (NKDEP) which additionally recommends that when the eGFR is used in patients with extremes of body mass index for purposes of drug dosing, the eGFR should be multiplied by the estimated BMI. [facility] ELECTROLYTES Glucose Lvl 276 mg/dL 70 - 99 08/14/2017 [facility] ELECTROLYTES Creatinine Lvl 1.21 mg/dL 0.50 - 1.40 08/14/2017 [facility] ELECTROLYTES BUN 33 mg/dL 7 - 22 08/14/2017 [facility] ELECTROLYTES CO2 29 meq/L 24 - 32 08/14/2017 [facility] ELECTROLYTES Chloride Lvl 104 meq/L 95 - 109 08/14/2017 [facility] ELECTROLYTES Calcium Lvl 8.5 mg/dL 8.5 - 10.5 08/14/2017 [facility] ELECTROLYTES Potassium Lvl 4.1 meq/L 3.5 - 5.1 08/14/2017 [facility] ELECTROLYTES Sodium Lvl 137 meq/L 135 - 145 08/14/2017 [facility] HEMATOLOGY Platelet 259 K/CMM 133 - 450 08/14/2017 [facility] HEMATOLOGY MPV 8.2 fL 7.4 - 10.4 08/14/2017 [facility] HEMATOLOGY MCH 29.1 pg 27.0 - 31.0 08/14/2017 [facility] HEMATOLOGY MCHC 32.6 g/dL 32.0 - 36.0 08/14/2017 [facility] HEMATOLOGY RDW 13.7 % 11.5 - 14.5 08/14/2017 [facility] HEMATOLOGY Hgb 9.7 g/dL 12.0 - 16.0 08/14/2017 [facility] HEMATOLOGY Hct 29.8 % 36.0 - 48.0 08/14/2017 [facility] HEMATOLOGY MCV 89.2 fL 80.0 - 98.0 08/14/2017 [facility] HEMATOLOGY RBC 3.34 M/CMM 4.20 - 5.40 08/14/2017 [facility] HEMATOLOGY WBC 6.4 K/CMM 3.7 - 10.4 08/14/2017 [facility] HEMATOLOGY Basophils # 0.1 K/CMM 0.0 - 0.2 08/14/2017 [facility] HEMATOLOGY Basophils 0.8 % 0.0 - 1.0 08/14/2017 [facility] HEMATOLOGY Eosinophils 4.2 % 0.0 - 4.0 08/14/2017 [facility] HEMATOLOGY Monocytes 12.2 % 2.0 - 12.0 08/14/2017 [facility] HEMATOLOGY Monocytes # 0.8 K/CMM 0.0 - 0.8 08/14/2017 [facility] HEMATOLOGY Lymphocytes # 1.2 K/CMM 1.0 - 5.5 08/14/2017 [facility] HEMATOLOGY Segs-Bands # 4.1 K/CMM 1.5 - 8.1 08/14/2017 [facility] HEMATOLOGY Eosinophils # 0.3 K/CMM 0.0 - 0.5 08/14/2017 [facility] HEMATOLOGY Segs 64.4 % 45.0 - 75.0 08/14/2017 [facility] HEMATOLOGY Lymphocytes 18.4 % 20.0 - 40.0 08/14/2017 [facility] ED Abdomen/Pelvis IV contrast only CT ED Abdomen/Pelvis IV contrast only CT EXAM: CT ABDOMEN AND PELVIS WITH CONTRAST DATE: 08/14/2017 12:33 AM CDT INDICATION: - abd pain. Abdominal swelling/edema, right lower extremity edema, hx infected bladder mass, now removed ADDITIONAL INFORMATION: None. COMPARISON: None. TECHNIQUE: Volumetric CT acquisition of the abdomen and pelvis after the intravenous administration contrast. Axial, coronal and sagittal reconstructions. Postcontrast phases: Venous and delayed. IV contrast: 100 mL Visipaque 320 Enteric contrast: None. DLP: 1811 mGy-cm FINDINGS: Lines, tubes and hardware: None. Lower thorax: Clear. Liver: Mild hepatomegaly. Biliary tree: No intra- or extrahepatic biliary ductal dilation. Gallbladder: Normal. No CT evidence of gallstones. Pancreas: Normal. Spleen: Normal. Adrenals: Collapsed. Kidneys and ureters: No hydronephrosis. No nephrolithiasis. No focal lesions. Bladder: Normal. Reproductive organs: Uterus and adnexa are unremarkable. Gastrointestinal tract: Stomach: Normal. Small bowel: Normal. Colon: Normal. Appendix: Normal. Peritoneum, mesentery and retroperitoneum: No free air, ascites or loculated fluid. Lymph nodes: Normal. Vasculature: Scattered aortoiliac atherosclerosis. IVC and iliac veins are patent. Bones: No acute abnormality. Large posterior osteophytes with mild to moderate spinal canal narrowing at the level of T12-L1, L4-L5 and L5-S1. Lower lumbar degenerative disc disease at L4-L5 and L5-S1. Soft tissues: Nonspecific mild abdominal wall and pelvic wall fat stranding/edema. Small fat-containing right-sided inguinal hernia seen. IMPRESSION: 1. Mild body wall edema. No finding to explain patient's abdominal pain or swelling otherwise. 2. No obvious bladder mass identified. RECOMMENDATIONS: None. [place] SECTION: Body 08/14/2017 - - This report was dictated by a Financial Accounting Analyst/Fellow. I have personally reviewed the images as well as the Resident's interpretation and agree with the findings. Read by: Sarkis Millard MD Resident: Sarkis Millard MD Dictated Date/time: 08/14/17 06:25 Electronically Signed by: Burke Weber 08/14/17 11:49 FINAL REPORT [facility] Ext Lower Venous Doppler Unilat US Ext Lower Venous Doppler Unilat US EXAM: US RIGHT LOWER EXTREMITY VENOUS DOPPLER DATE: 08/14/2017 12:33 AM CDT INDICATION: - RLE swelling ADDITIONAL INFORMATION: None. COMPARISON: None. TECHNIQUE: Multiplanar grayscale, color Doppler and spectral Doppler ultrasound of the right lower extremity veins. FINDINGS: Right Thigh Veins: Common Femoral: Patent. Femoral (SFV): Patent. Popliteal: Patent. Proximal Greater Saphenous: Patent. Deep Femoral Veins: Patent. Other: Ankle soft tissue swelling is noted. IMPRESSION: 1. No deep venous thrombosis (DVT) in the right lower extremity. 2. Ankle soft tissue swelling. 08/14/2017 - - This report was dictated by a Financial Accounting Analyst/Fellow. I have personally reviewed the images as well as the Resident's interpretation and agree with the findings. Read by: Sarkis Millard MD Resident: Sarkis Millard MD Dictated Date/time: 08/14/17 02:02 Electronically Signed by: Evelia Mccauley MD 08/14/17 07:38 FINAL REPORT [facility] Ankle 3 views DX Ankle 3 views DX EXAM: XR RIGHT ANKLE 3 VIEWS DATE: 08/14/2017 12:33 AM CDT INDICATION: - fall RLE pain COMPARISON: None. TECHNIQUE: AP, oblique and lateral radiographs of the ankle FINDINGS: There is generalized osteopenia. Nonspecific mild periosteal reaction seen along the medial distal tibia. No acute fracture or malalignment is identified. The ankle mortise is congruent. Prominent plantar and posterior calcaneal spurs are present. Vascular calcifications noted. Ankle soft tissue swelling is noted. IMPRESSION: 1. No acute fracture or dislocation of the right ankle. 2. Generalized osteopenia. 3. Circumferential ankle soft tissue swelling. 4. Calcaneal enthesophytes. [place] SECTION: ER 08/14/2017 - - This report was dictated by a Financial Accounting Analyst/Fellow. I have personally reviewed the images as well as the Resident's interpretation and agree with the findings. Read by: Sarkis Millard MD Resident: Sarkis Millard MD Dictated Date/time: 08/14/17 01:24 Electronically Signed by: Evelio Gomez 08/14/17 03:08 FINAL REPORT [facility] Chest 2 views DX Chest 2 views DX EXAM: XR CHEST 2 VIEWS DATE: 08/14/2017 12:33 AM CDT INDICATION: - Shortness of breath COMPARISON: Chest x-ray dated 07/28/2017. TECHNIQUE: PA and lateral chest radiographs FINDINGS: Study limited by portable technique. Lungs and pleura: Low lung volume with central bronchovascular crowding and scattered bibasilar platelike atelectasis. No focal consolidation is identified. Costophrenic sulci are not well seen. Otherwise, no large effusion or pneumothorax identified. Heart and mediastinum: The heart size is spuriously enlarged. The mediastinal contours are normal. Bones: Unchanged. Anterior longitudinal ligament ossification seen in the mid and lower thoracic spine. IMPRESSION: Low lung volumes with vascular crowding and bibasilar subsegmental atelectasis. Small pleural effusions are not excluded. [place] SECTION: ER 08/14/2017 - - This report was dictated by a Financial Accounting Analyst/Fellow. I have personally reviewed the images as well as the Resident's interpretation and agree with the findings. Read by: Sarkis Millard MD Resident: Sarkis Millard MD Dictated Date/time: 08/14/17 01:22 Electronically Signed by: Evelio Gomez 08/14/17 03:05 FINAL REPORT [facility] ELECTROLYTES CO2 35 meq/L 24 - 32 07/31/2017 [facility] ELECTROLYTES Sodium Lvl 139 meq/L 135 - 145 07/31/2017 [facility] ELECTROLYTES Calcium Lvl 8.3 mg/dL 8.5 - 10.5 07/31/2017 [facility] ELECTROLYTES AGAP 9.6 meq/L 10.0 - 20.0 07/31/2017 [facility] ELECTROLYTES Chloride Lvl 98 meq/L 95 - 109 07/31/2017 [facility] ELECTROLYTES Potassium Lvl 3.6 meq/L 3.5 - 5.1 07/31/2017 [facility] ELECTROLYTES eGFR 65 mL/min/1.73m2 07/31/2017 Result Comment: The eGFR is calculated using the CKD-EPI formula. In most young, healthy individuals the eGFR will be >90 mL/min/1.73m2. The eGFR declines with age. An eGFR of 60-89 may be normal in some populations, particularly the elderly, for whom the CKD-EPI formula has not been extensively validated. Use of the eGFR is not recommended in the following populations: Individuals with unstable creatinine concentrations, including patients and those with serious co-morbid conditions. Patients with extremes in muscle mass or diet. The data above are obtained from the National Kidney Disease Education Program (NKDEP) which additionally recommends that when the eGFR is used in patients with extremes of body mass index for purposes of drug dosing, the eGFR should be multiplied by the estimated BMI. [facility] ELECTROLYTES Glucose Lvl 138 mg/dL 70 - 99 07/31/2017 [facility] ELECTROLYTES BUN 35 mg/dL 7 - 22 07/31/2017 [facility] ELECTROLYTES Creatinine Lvl 0.93 mg/dL 0.50 - 1.40 07/31/2017 [facility] ELECTROLYTES Potassium Lvl 3.9 meq/L 3.5 - 5.1 07/30/2017 [facility] ELECTROLYTES Chloride Lvl 98 meq/L 95 - 109 07/30/2017 [facility] ELECTROLYTES CO2 34 meq/L 24 - 32 07/30/2017 [facility] ELECTROLYTES Creatinine Lvl 1.00 mg/dL 0.50 - 1.40 07/30/2017 [facility] ELECTROLYTES Sodium Lvl 141 meq/L 135 - 145 07/30/2017 [facility] ELECTROLYTES BUN 36 mg/dL 7 - 22 07/30/2017 [facility] ELECTROLYTES eGFR 60 mL/min/1.73m2 07/30/2017 Result Comment: The eGFR is calculated using the CKD-EPI formula. In most young, healthy individuals the eGFR will be >90 mL/min/1.73m2. The eGFR declines with age. An eGFR of 60-89 may be normal in some populations, particularly the elderly, for whom the CKD-EPI formula has not been extensively validated. Use of the eGFR is not recommended in the following populations: Individuals with unstable creatinine concentrations, including patients and those with serious co-morbid conditions. Patients with extremes in muscle mass or diet. The data above are obtained from the National Kidney Disease Education Program (NKDEP) which additionally recommends that when the eGFR is used in patients with extremes of body mass index for purposes of drug dosing, the eGFR should be multiplied by the estimated BMI. [facility] ELECTROLYTES Calcium Lvl 8.1 mg/dL 8.5 - 10.5 07/30/2017 [facility] ELECTROLYTES AGAP 12.9 meq/L 10.0 - 20.0 07/30/2017 [facility] ELECTROLYTES Glucose Lvl 161 mg/dL 70 - 99 07/30/2017 [facility] CARDIAC ENZYMES Troponin-I null 0.00 - 0.40 07/29/2017 [facility] CARDIAC ENZYMES Troponin-I null 0.00 - 0.40 07/29/2017 [facility] CHEM PANEL eGFR 60 mL/min/1.73m2 07/29/2017 Result Comment: The eGFR is calculated using the CKD-EPI formula. In most young, healthy individuals the eGFR will be >90 mL/min/1.73m2. The eGFR declines with age. An eGFR of 60-89 may be normal in some populations, particularly the elderly, for whom the CKD-EPI formula has not been extensively validated. Use of the eGFR is not recommended in the following populations: Individuals with unstable creatinine concentrations, including patients and those with serious co-morbid conditions. Patients with extremes in muscle mass or diet. The data above are obtained from the National Kidney Disease Education Program (NKDEP) which additionally recommends that when the eGFR is used in patients with extremes of body mass index for purposes of drug dosing, the eGFR should be multiplied by the estimated BMI. [facility] CHEM PANEL Glucose Lvl 86 mg/dL 70 - 99 07/29/2017 [facility] CHEM PANEL Creatinine Lvl 0.99 mg/dL 0.50 - 1.40 07/29/2017 [facility] CHEM PANEL BUN 31 mg/dL 7 - 22 07/29/2017 [facility] CHEM PANEL CO2 32 meq/L 24 - 32 07/29/2017 [facility] CHEM PANEL Chloride Lvl 103 meq/L 95 - 109 07/29/2017 [facility] CHEM PANEL Potassium Lvl 3.5 meq/L 3.5 - 5.1 07/29/2017 [facility] CHEM PANEL Calcium Lvl 8.4 mg/dL 8.5 - 10.5 07/29/2017 [facility] CHEM PANEL AGAP 11.5 meq/L 10.0 - 20.0 07/29/2017 [facility] CHEM PANEL Sodium Lvl 143 meq/L 135 - 145 07/29/2017 [facility] CARDIAC ENZYMES CK MB Index 2.2 0.0 - 2.5 07/28/2017 [facility] CARDIAC ENZYMES Troponin-I null 0.00 - 0.40 07/28/2017 [facility] CARDIAC ENZYMES BNP 81 pg/mL <=100 pg/mL 07/28/2017 [facility] CARDIAC ENZYMES Total CK 64 unit/L 12 - 191 07/28/2017 [facility] CARDIAC ENZYMES CK MB 1.4 ng/mL 0.5 - 3.6 07/28/2017 [facility] CHEM PANEL ALT 26 unit/L 0 - 65 07/28/2017 [facility] CHEM PANEL AST 18 unit/L 0 - 37 07/28/2017 [facility] CHEM PANEL Alk Phos 146 unit/L 39 - 136 07/28/2017 [facility] CHEM PANEL Bili Total 0.2 mg/dL 0.2 - 1.3 07/28/2017 [facility] CHEM PANEL Total Protein 8.1 g/dL 6.4 - 8.4 07/28/2017 [facility] CHEM PANEL Albumin Lvl 2.7 g/dL 3.5 - 5.0 07/28/2017 [facility] CHEM PANEL B/C Ratio 27 6 - 25 07/28/2017 [facility] CHEM PANEL Globulin 5.4 g/dL 2.7 - 4.2 07/28/2017 [facility] CHEM PANEL A/G Ratio 0.5 0.7 - 1.6 07/28/2017 [facility] Eosinophils # 0.2 K/CMM 0.0 - 0.5 07/28/2017 [facility] HEMATOLOGY Segs 63.1 % 45.0 - 75.0 07/28/2017 [facility] HEMATOLOGY Basophils 0.9 % 0.0 - 1.0 07/28/2017 [facility] HEMATOLOGY Eosinophils 4.4 % 0.0 - 4.0 07/28/2017 [facility] [place] Monocytes 9.5 % 2.0 - 12.0 07/28/2017 [facility] [place] Lymphocytes 22.1 % 20.0 - 40.0 07/28/2017 [facility] [place] Segs-Bands # 3.1 K/CMM 1.5 - 8.1 07/28/2017 [facility] [place] Monocytes # 0.5 K/CMM 0.0 - 0.8 07/28/2017 [facility] [place] Lymphocytes # 1.1 K/CMM 1.0 - 5.5 07/28/2017 [facility] [place] MPV 8.4 fL 7.4 - 10.4 07/28/2017 [facility] [place] Platelet 216 K/CMM 133 - 450 07/28/2017 [facility] [place] MCH 30.9 pg 27.0 - 31.0 07/28/2017 [facility] [place] WBC 4.9 K/CMM 3.7 - 10.4 07/28/2017 [facility] [place] MCV 90.8 fL 80.0 - 98.0 07/28/2017 [facility] [place] Hct 32.3 % 36.0 - 48.0 07/28/2017 [facility] [place] RDW 13.7 % 11.5 - 14.5 07/28/2017 [facility] [place] MCHC 34.1 g/dL 32.0 - 36.0 07/28/2017 [facility] [place] RBC 3.56 M/CMM 4.20 - 5.40 07/28/2017 [facility] [place] Hgb 11.0 g/dL 12.0 - 16.0 07/28/2017 [facility] Chest 1view DX Chest 1view DX Patient Name: KAREN ZUÑIGA : 1955; Age: 62 years Female MR: [id number] Study: Chest 1view DX Order Time: 07/28/2017 4:33 PM CDT CLINICAL INDICATION: Chest pain - chest pain COMPARISON: Chest radiograph on 05/25/2017 FINDINGS: Lines: None. Lungs: The lungs are grossly clear. Mediastinum: The cardiac silhouette is within normal limits of size. Midline trachea. Bones and soft tissues: No acute abnormalities. IMPRESSION: No acute cardiopulmonary abnormalities. No significant change since 05/25/2017. SL: [id number] 07/28/2017 - - Read by: Mandeep Burton MD Dictated Date/time: 07/28/17 17:01 Electronically Signed by: Mandeep Burton MD 07/28/17 17:02 FINAL REPORT [facility] CARDIAC ENZYMES Troponin-I null 0.00 - 0.40 07/09/2017 [facility] CARDIAC ENZYMES Total CK 52 unit/L 12 - 191 07/09/2017 [facility] CHEM PANEL eGFR 65 mL/min/1.73m2 07/09/2017 Result Comment: The eGFR is calculated using the CKD-EPI formula. In most young, healthy individuals the eGFR will be >90 mL/min/1.73m2. The eGFR declines with age. An eGFR of 60-89 may be normal in some populations, particularly the elderly, for whom the CKD-EPI formula has not been extensively validated. Use of the eGFR is not recommended in the following populations: Individuals with unstable creatinine concentrations, including patients and those with serious co-morbid conditions. Patients with extremes in muscle mass or diet. The data above are obtained from the National Kidney Disease Education Program (NKDEP) which additionally recommends that when the eGFR is used in patients with extremes of body mass index for purposes of drug dosing, the eGFR should be multiplied by the estimated BMI. [place] CHEM PANEL ASPARTATE TRANSAMINASE 20 unit/L 0 - 37 [facility]09[facility] Bili Total 0.2 mg/dL 0.2 - 1.3 07/09/2017 [facility] Total Protein 7.3 g/dL 6.4 - 8.4 07/09/2017 [place] CHEM PANEL CO2 33 meq/L 24 - 32 07/09/2017 [facility] CHEM PANEL Calcium Lvl 8.2 mg/dL 8.5 - 10.5 07/09/2017 [place] CHEM PANEL Sodium Lvl 139 meq/L 135 - 145 07/09/2017 [place] CHEM PANEL Albumin Lvl 2.6 g/dL 3.5 - 5.0 07/09/2017 [place] CHEM PANEL Alk Phos 148 unit/L 39 - 136 07/09/2017 [place] CHEM PANEL ALANINE AMINOTRANSFERASE 17 unit/L 0 - 65 07/09/2017 [place] CHEM PANEL Glucose Lvl 196 mg/dL 70 - 99 07/09/2017 [place] CHEM PANEL Potassium Lvl 3.7 meq/L 3.5 - 5.1 07/09/2017 [place] CHEM PANEL Chloride Lvl 102 meq/L 95 - 109 07/09/2017 [facility] BUN 37 mg/dL 7 - 22 07/09/2017 [facility] Creatinine Lvl 0.93 mg/dL 0.50 - 1.40 07/09/2017 [facility] CHEM PANEL AGAP 7.7 meq/L 10.0 - 20.0 07/09/2017 [facility] B/C Ratio 40 6 - 25 07/09/2017 [facility] A/G Ratio 0.6 0.7 - 1.6 07/09/2017 [place] CHEM PANEL Globulin 4.7 g/dL 2.7 - 4.2 07/09/2017 [facility] HEMATOLOGY Segs 51.4 % 45.0 - 75.0 07/09/2017 [facility] HEMATOLOGY Monocytes 11.8 % 2.0 - 12.0 07/09/2017 [facility] HEMATOLOGY Lymphocytes 31.7 % 20.0 - 40.0 07/09/2017 [facility] HEMATOLOGY Monocytes # 0.6 K/CMM 0.0 - 0.8 07/09/2017 [facility] HEMATOLOGY Eosinophils # 0.2 K/CMM 0.0 - 0.5 07/09/2017 [facility] HEMATOLOGY Segs-Bands # 2.8 K/CMM 1.5 - 8.1 07/09/2017 [facility] HEMATOLOGY Basophils 0.8 % 0.0 - 1.0 07/09/2017 [facility] HEMATOLOGY Lymphocytes # 1.7 K/CMM 1.0 - 5.5 07/09/2017 [facility] HEMATOLOGY Eosinophils 4.3 % 0.0 - 4.0 07/09/2017 [facility] aPTT 28.8 s 22.9 - 35.8 07/09/2017 [facility] PROTIME 12.8 s 12.0 - 14.7 07/09/2017 [facility] INR 0.94 0.85 - 1.17 07/09/2017 [facility] MPV 8.7 fL 7.4 - 10.4 07/09/2017 [facility] MCHC 33.7 g/dL 32.0 - 36.0 07/09/2017 [facility] MCH 29.9 pg 27.0 - 31.0 07/09/2017 [facility] MCV 88.6 fL 80.0 - 98.0 07/09/2017 [facility] RDW 13.4 % 11.5 - 14.5 07/09/2017 [facility] Platelet 223 K/CMM 133 - 450 07/09/2017 [facility] RBC X 10x6 3.60 M/CMM 4.20 - 5.40 07/09/2017 [facility] WBC X 10x3 5.4 K/CMM 3.7 - 10.4 07/09/2017 [facility] Hct 31.9 % 36.0 - 48.0 07/09/2017 [facility] Hgb 10.8 g/dL 12.0 - 16.0 07/09/2017 [facility] Brain wo contrast CT Brain wo contrast CT Patient Name: KAREN ZUÑIGA : 1955; Age: 61 years y/o Female MR: [id number] Study: Brain wo contrast CT 07/08/2017 10:30 PM CDT Ordering Physician: Isidro Phillips MD Clinical Indication: - headache with sudden vision change/ct dlp 1024.69 mGy- cm; Comparison: 06/21/2017 TECHNIQUE: CT images were obtained from the foramen magnum to the vertex without the use of intravenous contrast on a multidetector CT. Coronal and sagittal reformatted images were prepared. FINDINGS: BRAIN PARENCHYMA: Mild streak artifact. The brain volume and ventricle size are appropriate for age. No evidence of acute intracranial hemorrhage, mass lesion, mass effect, midline shift, or extra-axial fluid collection. VENTRICLES: The lateral ventricles, third and fourth ventricles, and basilar cisterns are normal. PARANASAL SINUSES: Mild moderate periosteal thickening in the frontal sinus. The visualized portions of the remaining paranasal sinuses are clear. MASTOIDS: Clear. SKULL: No acute fracture or suspicious osseous lesion. Incidental hyperostosis frontalis interna. IMPRESSION: 1. Normal brain without acute intracranial abnormality. 2. Chronic sinusitis as above discussed. SL: [facility] 07/08/2017 - - Read by: Addy Parsons MD Dictated Date/time: 07/08/17 22:54 Electronically Signed by: Addy Parsons MD 07/08/17 22:58 FINAL REPORT [facility] Knee 1-2 Views unilateral DX Knee 1-2 Views unilateral DX Study: 2 views of right knee joint History: Fall Comments: Normal bone mineralization. No acute fracture or dislocation. Tibial spine hypertrophy. IMPRESSION: No acute fracture or dislocation. 06/22/2017 - - Read by: Tish Evans MD Dictated Date/time: 06/22/17 01:36 Electronically Signed by: Tish Evans MD 06/22/17 01:38 FINAL REPORT [facility] Spine lumbar 2 or 3 views DX Spine lumbar 2 or 3 views DX Study: 3 views of lumbar spine History: Fall Comments: Decreased bone mineralization. Normal curvature of the spine. No acute fracture or subluxation in the lumbar spine. Age-indeterminate mild compression fracture of T11 vertebra Impression: No acute fracture or subluxation in the lumbar spine. Age-indeterminate mild compression fracture of T11 vertebra 06/22/2017 - - Read by: Tish Evans MD Dictated Date/time: 06/22/17 01:33 Electronically Signed by: Tish Evans MD 06/22/17 01:36 FINAL REPORT [facility] Brain wo contrast CT Brain wo contrast CT Addendum: I agree with the above report CT OF THE HEAD WITHOUT CONTRAST DATED 06/21/2017. CLINICAL INDICATION: Posttraumatic pain. Fall. Patient on Coumadin. COMPARISON: CT head dated 05/25/2017 TECHNIQUE: A CT of the head was performed using thin slice axial images without contrast enhancement. Sagittal and coronal reconstructions were performed. CT Radiation Dose: CTX=423 mGy-cm FINDINGS: Examination of the intracranial structures reveals no acute abnormal areas of increased or decreased density. Mari-white differentiation appears preserved. The ventricular system is stable in size and configuration without midline shift. No intra or extra-axial masses or fluid collections are identified. There is no CT evidence of acute intracranial hemorrhage. No acute CT abnormalities of the calvarium are detected. Hyperostosis frontalis is again noted. Inflammatory changes in the left frontal sinus persist however have shown improvement when compared to the prior study dated 05/25/2017. The included portions of the paranasal sinuses and mastoid air cells otherwise appear clear of acute disease. IMPRESSION: 1. No acute intracranial abnormalities are detected. There is no CT evidence of acute intracranial ischemia, acute intracranial hemorrhage or intracranial mass. SL:131 06/21/2017 - - Read by: Tish Evans MD Dictated Date/time: 06/21/17 23:41 Electronically Signed by: Tish Evans MD 06/21/17 23:44 FINAL REPORT - - Read by: Luciano Johnston MD Dictated Date/time: 06/21/17 23:02 Electronically Signed by: Luciano Johnston MD 06/21/17 23:07 FINAL REPORT [facility] Spine cervical wo contrast CT Spine cervical wo contrast CT CT CERVICAL SPINE WITHOUT CONTRAST Clinical Indication: ?FX s/p fall neck pain, c/o head, neck and hip pain s/p fall from standing to hard tile floor. No LOC. Per EMS, loss balance while walking with her walker. c-collar placed on scene.. Comparison: 05/29/2017 Technique: Multi-detector CT imaging of the cervical spine is performed. Coronal and sagittal reconstructions were obtained. CT imaging was performed with exposure control parameters to reduce radiation dose. CT Radiation Dose DLP 815.65 mGy-cm FINDINGS: The craniocervical alignment is maintained. The cervical vertebral body heights and alignment are preserved. The posterior elements are intact. No high-grade bony central canal narrowing. The prevertebral soft tissues are unremarkable. Mild cervical spondylosis is noted at the C3-C4 and C4-C5 levels. The right thyroid lobe is borderline enlarged with with suggestion of heterogeneous density or several subcentimeter nodules noted bilaterally. This could be further evaluated with thyroid ultrasound. IMPRESSION: There is no evidence of cervical fracture or traumatic subluxation. SL: [facility] 06/21/2017 - - Read by: Jocelyn Rosales MD Dictated Date/time: 06/21/17 23:12 Electronically Signed by: Jocelyn Rosales MD 06/21/17 23:22 FINAL REPORT [facility] Pelvis AP DX Pelvis AP DX Study: Frontal view of pelvis compared to 01-16-17 History: Hip pain Comments: Decreased bone mineralization. Sacrum evaluation limited due to overlying bowel gas. No acute fracture or dislocation in the remaining pelvis. Degenerative changes in the lower lumbar spine IMPRESSION: Sacrum evaluation limited due to overlying bowel gas. No acute fracture or dislocation in the remaining pelvis. 06/21/2017 - - Read by: Tish Evans MD Dictated Date/time: 06/22/17 00:16 Electronically Signed by: Tish Evans MD 06/22/17 00:32 FINAL REPORT [facility] ELECTROLYTES AGAP 10.1 meq/L 10.0 - 20.0 06/02/2017 [facility] ELECTROLYTES eGFR 54 mL/min/1.73m2 06/02/2017 Result Comment: The eGFR is calculated using the CKD-EPI formula. In most young, healthy individuals the eGFR will be >90 mL/min/1.73m2. The eGFR declines with age. An eGFR of 60-89 may be normal in some populations, particularly the elderly, for whom the CKD-EPI formula has not been extensively validated. Use of the eGFR is not recommended in the following populations: Individuals with unstable creatinine concentrations, including patients and those with serious co-morbid conditions. Patients with extremes in muscle mass or diet. The data above are obtained from the National Kidney Disease Education Program (NKDEP) which additionally recommends that when the eGFR is used in patients with extremes of body mass index for purposes of drug dosing, the eGFR should be multiplied by the estimated BMI. [facility] ELECTROLYTES Calcium Lvl 8.6 mg/dL 8.5 - 10.5 06/02/2017 [facility] ELECTROLYTES CO2 33 meq/L 24 - 32 06/02/2017 [facility] ELECTROLYTES Chloride Lvl 101 meq/L 95 - 109 06/02/2017 [facility] ELECTROLYTES Potassium Lvl 4.1 meq/L 3.5 - 5.1 06/02/2017 [facility] ELECTROLYTES Sodium Lvl 140 meq/L 135 - 145 06/02/2017 [facility] ELECTROLYTES Creatinine Lvl 1.10 mg/dL 0.50 - 1.40 06/02/2017 [facility] ELECTROLYTES Glucose Lvl 154 mg/dL 70 - 99 06/02/2017 [facility] ELECTROLYTES BUN 50 mg/dL 7 - 22 06/02/2017 [facility] HEMATOLOGY Sed Rate 78 mm/h 0 - 20 06/02/2017 [facility] [place] MCH 29.6 pg 27.0 - 31.0 06/02/2017 [facility] HEMATOLOGY Platelet 196 K/CMM 133 - 450 06/02/2017 [facility] [place] RDW 14.0 % 11.5 - 14.5 06/02/2017 [facility] MCHC 32.5 g/dL 32.0 - 36.0 06/02/2017 [facility] [place] MPV 10.2 fL 7.4 - 10.4 06/02/2017 [facility] [place] RBC 3.44 M/CMM 4.20 - 5.40 06/02/2017 [facility] [place] WBC 4.6 K/CMM 3.7 - 10.4 06/02/2017 [facility] [place] MCV 91.2 fL 80.0 - 98.0 06/02/2017 [facility] [place] Hct 31.4 % 36.0 - 48.0 06/02/2017 [facility] [place] Hgb 10.2 g/dL 12.0 - 16.0 06/02/2017 [facility] [place] Eosinophils 5.5 % 0.0 - 4.0 06/02/2017 [facility] [place] Basophils 1.2 % 0.0 - 1.0 06/02/2017 [facility] [place] Monocytes 12.5 % 2.0 - 12.0 06/02/2017 [facility] HEMATOLOGY Eosinophils # 0.3 K/CMM 0.0 - 0.5 06/02/2017 [facility] [place] Lymphocytes # 1.6 K/CMM 1.0 - 5.5 06/02/2017 [facility] [place] Monocytes # 0.6 K/CMM 0.0 - 0.8 06/02/2017 [facility] [place] Segs-Bands # 2.1 K/CMM 1.5 - 8.1 06/02/2017 [facility] [place] Basophils # 0.1 K/CMM 0.0 - 0.2 06/02/2017 [facility] HEMATOLOGY Segs 46.3 % 45.0 - 75.0 06/02/2017 [facility] [place] Lymphocytes 34.5 % 20.0 - 40.0 06/02/2017 [facility] IMMUNOLOGY C-REACTIVE PROTEIN 3.5 mg/L <=2.9 mg/L 06/02/2017 [facility] IMMUNOLOGY RAMÓN Negative (06/02/17 4:15 AM) Negative 06/02/2017 [facility] CHEM PANEL eGFR 54 mL/min/1.73m2 05/29/2017 Result Comment: The eGFR is calculated using the CKD-EPI formula. In most young, healthy individuals the eGFR will be >90 mL/min/1.73m2. The eGFR declines with age. An eGFR of 60-89 may be normal in some populations, particularly the elderly, for whom the CKD-EPI formula has not been extensively validated. Use of the eGFR is not recommended in the following populations: Individuals with unstable creatinine concentrations, including patients and those with serious co-morbid conditions. Patients with extremes in muscle mass or diet. The data above are obtained from the National Kidney Disease Education Program (NKDEP) which additionally recommends that when the eGFR is used in patients with extremes of body mass index for purposes of drug dosing, the eGFR should be multiplied by the estimated BMI. [facility] CHEM PANEL Creatinine Lvl 1.10 mg/dL 0.50 - 1.40 05/29/2017 [facility] CHEM PANEL BUN 35 mg/dL 7 - 22 05/29/2017 [facility] CHEM PANEL Chloride Lvl 96 meq/L 95 - 109 05/29/2017 [facility] CHEM PANEL CO2 35 meq/L 24 - 32 05/29/2017 [facility] CHEM PANEL Potassium Lvl 4.0 meq/L 3.5 - 5.1 05/29/2017 [facility] CHEM PANEL Sodium Lvl 138 meq/L 135 - 145 05/29/2017 [facility] CHEM PANEL Calcium Lvl 8.7 mg/dL 8.5 - 10.5 05/29/2017 [facility] CHEM PANEL Glucose Lvl 178 mg/dL 70 - 99 05/29/2017 [facility] CHEM PANEL AGAP 11.0 meq/L 10.0 - 20.0 05/29/2017 [facility] HEMATOLOGY Lymphocytes 21.2 % 20.0 - 40.0 05/29/2017 [facility] HEMATOLOGY Segs 62.5 % 45.0 - 75.0 05/29/2017 [facility] HEMATOLOGY Monocytes 11.1 % 2.0 - 12.0 05/29/2017 [facility] HEMATOLOGY Monocytes # 0.5 K/CMM 0.0 - 0.8 05/29/2017 [facility] HEMATOLOGY Basophils # 0.1 K/CMM 0.0 - 0.2 05/29/2017 [facility] HEMATOLOGY Eosinophils # 0.2 K/CMM 0.0 - 0.5 05/29/2017 [facility] HEMATOLOGY Eosinophils 4.0 % 0.0 - 4.0 05/29/2017 [facility] [place] Segs-Bands # 3.0 K/CMM 1.5 - 8.1 05/29/2017 [facility] [place] Basophils 1.2 % 0.0 - 1.0 05/29/2017 [facility] [place] Lymphocytes # 1.0 K/CMM 1.0 - 5.5 05/29/2017 [facility] [place] Hct 32.2 % 36.0 - 48.0 05/29/2017 [facility] [place] MCV 90.2 fL 80.0 - 98.0 05/29/2017 [facility] [place] Hgb 10.7 g/dL 12.0 - 16.0 05/29/2017 [facility] [place] RBC 3.57 M/CMM 4.20 - 5.40 05/29/2017 [facility] [place] WBC 4.9 K/CMM 3.7 - 10.4 05/29/2017 [facility] [place] Platelet 223 K/CMM 133 - 450 05/29/2017 [facility] [place] MPV 9.8 fL 7.4 - 10.4 05/29/2017 [facility] [place] RDW 13.8 % 11.5 - 14.5 05/29/2017 [facility] [place] MCH 30.1 pg 27.0 - 31.0 05/29/2017 [facility] [place] MCHC 33.3 g/dL 32.0 - 36.0 05/29/2017 [facility] cervical wo contrast CT Spine cervical wo contrast CT EXAM: CT cervical spine HISTORY: Right hand weakness COMPARISON: MRI cervical spine 05/27/2017, CT cervical spine 01/16/2017 TECHNIQUE: Axial images of the cervical spine with sagittal and coronal reformats. DLP: 411 mGy cm. FINDINGS: The small disc bulges and ligamentum flavum thickening at C3-C4 and C4-C5 and ligamentum flavum thickening at C5-C6 with mild-moderate canal stenosis are better demonstrated on MRI. Mild-moderate facet arthrosis C3-C4, C4-C5 and C5-C6 with mild neuroforaminal stenoses on the left at C3-C4 and on the right at C5-C6 and C6-C7. The remaining levels appear intact. SL: [id number] 05/29/2017 - - Read by: Valentin Walsh MD Dictated Date/time: 05/30/17 07:46 Electronically Signed by: Valentin Walsh MD 05/30/17 08:00 FINAL REPORT [facility] DRUG SCREEN U Lenore Scr Negative *NA* (05/28/17 10:36 AM) Negative 05/28/2017 [facility] DRUG SCREEN U Amph Scr Negative *NA* (05/28/17 10:36 AM) Negative 05/28/2017 [facility] DRUG SCREEN UDS Note See Note *NA* (05/28/17 10:36 AM) 05/28/2017 [facility] DRUG SCREEN U Opiate Scr Negative *NA* (05/28/17 10:36 AM) Negative 05/28/2017 [facility] DRUG SCREEN U Benzodia Scr Negative *NA* (05/28/17 10:36 AM) Negative 05/28/2017 [facility] DRUG SCREEN U Cannab Scr Negative *NA* (05/28/17 10:36 AM) Negative 05/28/2017 [facility] DRUG SCREEN U Cocaine Scr Negative *NA* (05/28/17 10:36 AM) Negative 05/28/2017 [facility] DRUG SCREEN U Phencyc Scr Negative *NA* (05/28/17 10:36 AM) Negative 05/28/2017 [facility] URINE AND STOOL UA Color Ltyellow 05/28/2017 [facility] URINE AND STOOL UA Urobilinogen <=1.0 mg/dL 0.1 - 1.0 05/28/2017 [facility] URINE AND STOOL UA Bacteria Occasional /HPF None Seen /HPF 05/28/2017 [facility] URINE AND STOOL UA WBC 8 /HPF 0 - 5 05/28/2017 [facility] URINE AND STOOL UA RBC 34 /HPF 0 - 2 05/28/2017 [facility] URINE AND STOOL UA pH 6.0 5.0 - 8.0 05/28/2017 [facility] URINE AND STOOL UA Spec Grav 1.006 <=1.030 05/28/2017 [facility] URINE AND STOOL UA Turbidity Slight *ABN* (05/28/17 10:36 AM) Clear 05/28/2017 [facility] URINE AND STOOL UA Bili Negative *NA* (05/28/17 10:36 AM) Negative 05/28/2017 [facility] URINE AND STOOL UA Ketones Negative mg/dL Negative mg/dL 05/28/2017 [facility] URINE AND STOOL UA Protein 30 mg/dL Negative mg/dL 05/28/2017 [facility] URINE AND STOOL UA Sq Epi Occasional /LPF Few /LPF 05/28/2017 [facility] URINE AND STOOL UA Blood Moderate *ABN* (05/28/17 10:36 AM) Negative 05/28/2017 [facility] URINE AND STOOL UA Nitrite Negative (05/28/17 10:36 AM) Negative 05/28/2017 [facility] URINE AND STOOL UA Leuk Est Trace *ABN* (05/28/17 10:36 AM) Negative 05/28/2017 [facility] URINE AND STOOL UA Glucose Negative mg/dL Negative mg/dL 05/28/2017 [facility] URINE CHEM U Creatinine null 05/28/2017 [facility] URINE CHEM U Protein 36.0 mg/dL 05/28/2017 [facility] URINE CHEM U Prot/Creat See Note 1 (05/28/17 10:26 AM) 05/28/2017 Result Comment: U Protein/U Creatinine ratio can not be calculated because the U Creatinine result is <13.00 05/28/2017 13:40 ka [facility] Spine Thoracic wo contrast MRI Spine Thoracic wo contrast MRI Spine Thoracic wo contrast MRI CLINICAL INDICATION: Patient complained of increasing lower extremity weakness. - weakness; COMPARISON: None TECHNIQUE: Multiplanar T1, T2, STIR weighted MRI of the thoracic spine is performed without IV contrast. Postcontrast T1-weighted images in sagittal and axial projections are also available for review. FINDINGS: ALIGNMENT AND GENERAL SURVEY: There is mild to moderate kyphosis noted in the thoracic spine. No abnormal marrow signal is present in the vertebral bodies. No subluxation or acute compression fractures are noted. SPINAL CORD: The thoracic spinal cord is normal in size and signal. The CSF space is unremarkable. The conus medullaris ends at the upper aspect of L1 level. DISK SPACES: There is disc desiccation noted in majority of the thoracic spine but no large disc bulge or focal disc herniation. No significant central canal or foraminal stenosis is present at any level in the thoracic spine. Prominent posterior osteophyte is present at T12-L1 level resulting in mild central canal stenosis. SOFT TISSUES: Mild right basilar atelectasis. No other significant abnormality is noted.. IMPRESSION: Prominent posterior osteophyte at T12-L1 level results in mild central canal stenosis. Mild to moderate kyphosis is noted in the mid thoracic spine. Degenerative disc disease is present throughout the thoracic spine without evidence for large diffuse disc bulge or disc herniation. No significant central canal stenosis. SL: [id number] 05/28/2017 - - Read by: Neftali Kang MD Dictated Date/time: 05/28/17 08:54 Electronically Signed by: Neftali Kang MD 05/28/17 09:06 FINAL REPORT [facility] Spine lumbar wo contrast MRI Spine lumbar wo contrast MRI Spine lumbar wo contrast MRI CLINICAL INDICATION: Patient complained of increasing lower extremity weakness. - weakness; COMPARISON: None TECHNIQUE: Multiplanar imaging of the lumbar spine was performed without IV contrast utilizing T1 and T2 weighted sequences. FINDINGS: Retroperitoneum/Soft tissues: No significant abnormality. Vertebral bodies and Alignment: 5 non-rib bearing lumbar type vertebrae are presumed. Vertebral bodies demonstrate appropriate height and normal signal on T1 and T2 weighted sequences. Lower thoracic Cord: The conus medullaris demonstrates normal morphology and terminates at approximately T12-L1 level. T12-L1 level: Prominent posterior osteophyte results in mild central canal stenosis. Mild facet arthrosis. L1-L2 level: Mild facet arthrosis. No significant spondylosis or degenerative disc disease. No significant central canal or foraminal stenosis. L2-L3 level: Disc desiccation, diffuse disc bulge, facet arthrosis and mild ligamentous hypertrophy is noted. There is mild bilateral lateral recess stenosis. L3-L4 level: Disc desiccation, diffuse disc bulge, facet arthrosis and ligamentous hypertrophy is present. This results in mild central canal stenosis and mild bilateral lateral recess stenosis. [id number] left foraminal stenosis. L4-L5 level: There is disc desiccation, Modic endplate changes and diffuse disc bulge. In addition, there is small central disc herniation noted. There is facet arthrosis and ligamentous hypertrophy also present. Combination of above results in moderate to severe central canal stenosis and moderate to severe bilateral foraminal stenosis. L5-S1 level: Diffuse disc bulge and disc extrusion is noted which extends inferior to the disc space. Facet arthrosis and mild ligamentous hypertrophy is present. This results in moderate central canal stenosis and moderate right foraminal stenosis. There is moderate to severe left foraminal stenosis IMPRESSION: Diffuse disc bulge and small central disc herniation at L4-L5 level along with facet arthrosis and ligamentous hypertrophy results in moderate to severe central canal stenosis and moderate to severe bilateral foraminal stenosis Combination of diffuse disc bulge, central disc extrusion, facet arthrosis and ligamentous hypertrophy results in moderate central canal stenosis and moderate right foraminal stenosis at L5-S1 level and moderate to severe left foraminal stenosis. Disc disease, facet arthrosis and ligamentous hypertrophy to a lesser extent is visualized at other levels in the lumbar spine as discussed in detail above. SL: [id number] 05/28/2017 - - Read by: Neftali Kang MD Dictated Date/time: 05/28/17 08:27 Electronically Signed by: Neftali Kang MD 05/28/17 08:53 FINAL REPORT [facility] Brain wo contrast MRA Brain wo contrast MRA Brain wo contrast MRA CLINICAL HX: Double Vision - Note: Pt was medicated prior to exam, best study obtained// Pt c/o chest pains, SOB, upper extremity and lower extremity weakness x 2 days // [place]; COMPARISON: MRI brain 05/26/2017 TECHNIQUE: 3-D [id number] images of the [place] were performed. Images were reformatted in the sagittal and coronal projections. FINDINGS: Evaluation is limited due to motion artifact. The petrous, cavernous, and supraclinoid portions of the carotids bilaterally demonstrate no gross loss of signal. The A1, A2, M1 and M2 segments of the anterior and middle cerebral arteries do not demonstrate any focal loss of signal to suggest any significant stenosis. No gross aneurysm is visualized in the anterior circulation. Both vertebral arteries, basilar artery and the [employer] are visualized. Neither SCA is visualized. The AICAs are not well seen on either side. No gross aneurysm is identified in the posterior circulation. IMPRESSION: Limited evaluation due to motion. No evidence for high-grade stenosis in the major branches arising from the [place]. SL: [id number] 05/27/2017 - - Read by: Neftali Kang MD Dictated Date/time: 05/27/17 07:20 Electronically Signed by: Neftali Kang MD 05/27/17 07:25 FINAL REPORT [facility] Spine cervical wo contrast MRI Spine cervical wo contrast MRI EXAM: MRI cervical spine HISTORY: quadriparesis COMPARISON: MRI cervical spine 02/17/2016, CT cervical spine 3217 TECHNIQUE: Axial and sagittal T1 and T2-weighted images of the cervical spine. No contrast. FINDINGS: Motion artifact. Diffuse degenerative disc desiccation. C2-C3: No disc protrusion. Mild ligamentum flavum thickening bilaterally with mild mass effect on the posterior thecal sac. Mild neuroforaminal stenosis on the left. C3-C4: Small central disc bulge, mild ligamentum flavum thickening on the left with mild canal stenosis. The neuroforamina are patent. C4-C5: Small central disc bulge. Mild ligamentum flavum thickening bilaterally contributes to mild-moderate canal stenosis. Mild neuroforaminal stenosis on the left. C5-C6: No disc protrusion. Moderate ligamentum flavum thickening bilaterally with mild mass effect posterior thecal sac with mild canal stenosis. The neuroforamina are patent. C6-C7: No significant disc bulge, central canal or neuroforaminal stenosis. C7-T1: No significant disc bulge, central canal or neuroforaminal stenosis. IMPRESSION: Motion artifact. Small disc bulges and ligamentum flavum thickening at C3-C4 and C4-C5 with mild- moderate canal stenoses. Ligamentum flavum thickening at C5-C6 with mild canal stenosis. Mild neuroforaminal stenoses on the left at C2-C3 and C4-C5. SL: [id number] 05/27/2017 - - Read by: Valentin Walsh MD Dictated Date/time: 05/27/17 08:44 Electronically Signed by: Valentin Walsh MD 05/27/17 09:27 FINAL REPORT [facility] CARDIAC ENZYMES Troponin-I null 0.00 - 0.40 05/26/2017 [facility] CARDIAC ENZYMES Total CK 43 unit/L 12 - 191 05/26/2017 [facility] ANEMIA STUDY Vitamin B12 Lvl 368 pg/mL 254 - 1320 05/26/2017 [facility] CHEM PANEL VITAMIN B1 (THIAMINE) WHOLE BLOOD 110.8 nMol/L 66.5 - 200.0 05/26/2017 Result Comment: Performed At: [facility] [id number] Margaret Mclaughlin MD Ph:[phone] [facility] CHEM PANEL Bili Total 0.7 mg/dL 0.2 - 1.3 05/26/2017 [facility] CHEM PANEL eGFR 62 mL/min/1.73m2 05/26/2017 Result Comment: The eGFR is calculated using the CKD-EPI formula. In most young, healthy individuals the eGFR will be >90 mL/min/1.73m2. The eGFR declines with age. An eGFR of 60-89 may be normal in some populations, particularly the elderly, for whom the CKD-EPI formula has not been extensively validated. Use of the eGFR is not recommended in the following populations: Individuals with unstable creatinine concentrations, including patients and those with serious co-morbid conditions. Patients with extremes in muscle mass or diet. The data above are obtained from the National Kidney Disease Education Program (NKDEP) which additionally recommends that when the eGFR is used in patients with extremes of body mass index for purposes of drug dosing, the eGFR should be multiplied by the estimated BMI. [facility] CHEM PANEL Alk Phos 117 unit/L 39 - 136 05/26/2017 [facility] CHEM PANEL A/G Ratio 0.6 0.7 - 1.6 05/26/2017 [facility] CHEM PANEL AST 15 unit/L 0 - 37 05/26/2017 [facility] CHEM PANEL ALT 18 unit/L 0 - 65 05/26/2017 [facility] CHEM PANEL Globulin 4.0 g/dL 2.7 - 4.2 05/26/2017 [facility] CHEM PANEL B/C Ratio 37 6 - 25 05/26/2017 [facility] CHEM PANEL Calcium Lvl 8.5 mg/dL 8.5 - 10.5 05/26/2017 [facility] CHEM PANEL Albumin Lvl 2.5 g/dL 3.5 - 5.0 05/26/2017 [facility] CHEM PANEL Total Protein 6.5 g/dL 6.4 - 8.4 05/26/2017 [facility] CHEM PANEL AGAP 11.4 meq/L 10.0 - 20.0 05/26/2017 [facility] CHEM PANEL CO2 32 meq/L 24 - 32 05/26/2017 [facility] CHEM PANEL Sodium Lvl 139 meq/L 135 - 145 05/26/2017 [facility] CHEM PANEL Creatinine Lvl 0.97 mg/dL 0.50 - 1.40 05/26/2017 [facility] CHEM PANEL Chloride Lvl 100 meq/L 95 - 109 05/26/2017 [facility] CHEM PANEL Potassium Lvl 4.4 meq/L 3.5 - 5.1 05/26/2017 [facility] CHEM PANEL BUN 36 mg/dL 7 - 22 05/26/2017 [facility] CHEM PANEL Glucose Lvl 378 mg/dL 70 - 99 05/26/2017 [facility] HEMATOLOGY Lymphocytes 27.2 % 20.0 - 40.0 05/26/2017 [facility] HEMATOLOGY Segs 56.6 % 45.0 - 75.0 05/26/2017 [facility] HEMATOLOGY Monocytes # 0.5 K/CMM 0.0 - 0.8 05/26/2017 [facility] HEMATOLOGY Eosinophils # 0.2 K/CMM 0.0 - 0.5 05/26/2017 [facility] HEMATOLOGY Eosinophils 4.2 % 0.0 - 4.0 05/26/2017 [facility] HEMATOLOGY Monocytes 11.2 % 2.0 - 12.0 05/26/2017 [facility] HEMATOLOGY Segs-Bands # 2.5 K/CMM 1.5 - 8.1 05/26/2017 [facility] HEMATOLOGY Basophils 0.8 % 0.0 - 1.0 05/26/2017 [facility] HEMATOLOGY Lymphocytes # 1.2 K/CMM 1.0 - 5.5 05/26/2017 [facility] HEMATOLOGY WBC 4.4 K/CMM 3.7 - 10.4 05/26/2017 [facility] HEMATOLOGY RBC 3.43 M/CMM 4.20 - 5.40 05/26/2017 [facility] [place] MPV 9.3 fL 7.4 - 10.4 05/26/2017 [facility] [place] MCH 30.1 pg 27.0 - 31.0 05/26/2017 [facility] [place] MCHC 33.5 g/dL 32.0 - 36.0 05/26/2017 [facility] HEMATOLOGY RDW 14.4 % 11.5 - 14.5 05/26/2017 [facility] [place] Platelet 192 K/CMM 133 - 450 05/26/2017 [facility] [place] Hgb 10.3 g/dL 12.0 - 16.0 05/26/2017 [facility] [place] Hct 30.9 % 36.0 - 48.0 05/26/2017 [facility] [place] MCV 90.0 fL 80.0 - 98.0 05/26/2017 [facility] LIPIDS VLDL 37 05/26/2017 [facility] LIPIDS LDL (Calculated) 73 mg/dL <=99 mg/dL 05/26/2017 [facility] LIPIDS Trig 186 mg/dL <=149 mg/dL 05/26/2017 [facility] LIPIDS HDL 53 mg/dL >=61 mg/dL 05/26/2017 [facility] LIPIDS Chol 163 mg/dL <=199 mg/dL 05/26/2017 [facility] LIPIDS CHD Risk 3.08 3.90 - 5.80 05/26/2017 [facility] SPECIAL CHEMISTRY Hgb A1C 11.0 % <=5.6 % 05/26/2017 [facility] Brain wo contrast MRI Brain wo contrast MRI Patient Name: KAREN ZUÑIGA : 1955; Age: 61 years y/o Female MR: [id number] Study: Brain wo contrast MRI 05/25/2017 9:22 PM CDT INDICATIONS: - R arm numbness Comparison: February 17, 2016 TECHNIQUE: Multiplanar MRI of the brain is performed on a 1.5 Miguelina magnet. Contrast: None. FINDINGS: BRAIN PARENCHYMA: Age appropriate involutionary changes with mild punctate small vessel ischemic changes. Changes in the right ana most likely small vessel ischemic changes however demyelinating disease and other etiologies can have a similar appearance, similarThe brain parenchyma otherwise has normal signal with normal puentes-white junction, sulci, and gyri. There is no mass effect or midline shift. There is no extra-axial fluid collection or intraparenchymal hemorrhage. The corpus callosum appears normal. There is no diffusion weighted imaging or ADC map abnormality to suggest acute/subacute ischemia. There is no magnetic susceptibility to suggest recent or remote intracranial hemorrhage. CEREBELLOPONTINE REGIONS AND SKULL BASE: The cerebellopontine angles appear unremarkable. The skull base, craniocervical junction, and brainstem are normal. The optic chiasm is normal. The sellar and pineal regions are unremarkable. The inferior tip of the cerebellum is above the foramen magnum (line between the opisthion to basion) which is considered normal.. VENTRICLES: The lateral ventricles, third and fourth ventricles appear unremarkable. The basilar cisterns are normal. VESSELS: The venous sinuses are grossly unremarkable. The expected intracranial flow voids are present. ORBITS, VISUALIZED PARANASAL SINUSES AND MASTOIDS: Mucoperiosteal thickening and partial opacification of the frontal sinuses suggesting sinus inflammatory disease versus multiple polyposis. The visualized orbits and paranasal sinuses are otherwise unremarkable. The mastoid air cells are unopacified. IMPRESSION: 1. Age appropriate involutionary changes with mild punctate small vessel ischemic changes. 2. Mucoperiosteal thickening and partial opacification of the frontal sinuses suggesting sinus inflammatory disease versus multiple polyposis. 3. Changes in the right ana most likely small vessel ischemic changes however demyelinating disease and other etiologies can have a similar appearance, similar SL: WARNER 05/26/2017 - - Read by: Escobar Cabrera DO Dictated Date/time: 05/26/17 02:58 Electronically Signed by: Escobar Cabrera DO 05/26/17 03:08 FINAL REPORT [facility] URINE AND STOOL UA Hyal Cast 6 /LPF 0 - 2 05/25/2017 [facility] URINE AND STOOL UA Urobilinogen <=1.0 mg/dL 0.1 - 1.0 05/25/2017 [facility] URINE AND STOOL UA Bacteria Occasional /HPF None Seen /HPF 05/25/2017 [facility] URINE AND STOOL UA Leuk Est Small *ABN* (05/25/17 3:03 PM) Negative 05/25/2017 [facility] URINE AND STOOL UA Sq Epi Occasional /LPF Few /LPF 05/25/2017 [facility] URINE AND STOOL UA WBC 12 /HPF 0 - 5 05/25/2017 [facility] URINE AND STOOL UA RBC 7 /HPF 0 - 2 05/25/2017 [facility] URINE AND STOOL UA Nitrite Negative (05/25/17 3:03 PM) Negative 05/25/2017 [facility] URINE AND STOOL UA Ketones Negative mg/dL Negative mg/dL 05/25/2017 [facility] URINE AND STOOL UA Blood Moderate *ABN* (05/25/17 3:03 PM) Negative 05/25/2017 [facility] URINE AND STOOL UA Glucose 50 mg/dL Negative mg/dL 05/25/2017 [facility] URINE AND STOOL UA Bili Negative *NA* (05/25/17 3:03 PM) Negative 05/25/2017 [facility] URINE AND STOOL UA Color Yellow *NA* (05/25/17 3:03 PM) Yellow 05/25/2017 [facility] URINE AND STOOL UA Turbidity Marked *ABN* (05/25/17 3:03 PM) Clear 05/25/2017 [facility] URINE AND STOOL UA Spec Grav 1.012 <=1.030 05/25/2017 [facility] URINE AND STOOL UA pH 5.0 5.0 - 8.0 05/25/2017 [facility] URINE AND STOOL UA Protein 100 mg/dL Negative mg/dL 05/25/2017 [facility] CARDIAC ENZYMES Total CK 48 unit/L 12 - 191 05/25/2017 [facility] CARDIAC ENZYMES Troponin-I null 0.00 - 0.40 05/25/2017 [facility] CARDIAC ENZYMES CK MB 1.3 ng/mL 0.5 - 3.6 05/25/2017 [facility] CARDIAC ENZYMES CK MB Index 2.7 0.0 - 2.5 05/25/2017 [facility] CHEM PANEL Magnesium Lvl 2.0 mg/dL 1.8 - 2.4 05/25/2017 [facility] HEMATOLOGY PTT 25.7 s 22.9 - 35.8 05/25/2017 [facility] HEMATOLOGY PT 12.5 s 12.0 - 14.7 05/25/2017 [facility] HEMATOLOGY INR 0.91 0.85 - 1.17 05/25/2017 [facility] HEMATOLOGY Basophils # 0.1 K/CMM 0.0 - 0.2 05/25/2017 [facility] Chest 1view DX Chest 1view DX Study: Chest 1view DX Clinical Indication: - chest pain Comparison: Chest x-ray from 05/19/2017 FINDINGS: The cardiac silhouette is normal in size. The lungs are clear and without consolidation or congestion. No pleural effusion or pneumothorax is seen. The osseous structures are unremarkable. IMPRESSION: No acute cardiopulmonary disease. SL: [id number] 05/25/2017 - - Read by: Gil Fisher MD Dictated Date/time: 05/25/17 13:20 Electronically Signed by: Gil Fisher MD 05/25/17 13:20 FINAL REPORT [facility] Brain Stroke wo contrast CT Brain Stroke wo contrast CT EXAM: CT BRAIN WITHOUT CONTRAST DATE: 05/25/2017 12:32 PM CDT INDICATION: ct dlp dose 981.84 mGycm - Pt c/o weakness and fatigue since yesterday. Today, pt had CP and SOB. Pt states that she just started taking "a beta amanda and a water pill" yesterday for first time. Hx HTN, CHF, DM. BS 121. Acute CVA. COMPARISON: CT head of 01/16/2017. TECHNIQUE: Routine axial CT images of the brain were obtained. IV contrast: None. DLP: mGy-cm FINDINGS: Non-contrast images of the head demonstrate no edema, hemorrhage, mass lesion or other acute intracranial abnormality. The mari-white matter distinction is preserved. The ventricles are normal. The basal cisterns and sulci are normal in size. Marked atherosclerotic calcification of the distal internal carotid and vertebral arteries. Prominent frontal hyperostosis is present. Mild chronic inflammatory change of the paranasal sinus with complete opacification of the frontal sinus. Partial opacification of the mastoid air cells. IMPRESSION: 1. No definite acute infarct or intracranial hemorrhage detected. 2. Mild chronic inflammatory change of the paranasal sinus with complete opacification of the frontal sinus. SL: [id number] 05/25/2017 - - Read by: Rafael Ojeda MD Dictated Date/time: 05/25/17 13:20 Electronically Signed by: Rafael Ojeda MD 05/25/17 13:27 FINAL REPORT [facility] CARDIAC ENZYMES Troponin-I null 0.00 - 0.40 05/19/2017 [facility] CARDIAC ENZYMES CK MB 1.8 ng/mL 0.5 - 3.6 05/19/2017 [facility] CARDIAC ENZYMES Total CK 56 unit/L 12 - 191 05/19/2017 [facility] CARDIAC ENZYMES BNP 84 pg/mL <=100 pg/mL 05/19/2017 [facility] CARDIAC ENZYMES CK MB Index 3.2 0.0 - 2.5 05/19/2017 [facility] CHEM PANEL eGFR 40 mL/min/1.73m2 05/19/2017 Result Comment: The eGFR is calculated using the CKD-EPI formula. In most young, healthy individuals the eGFR will be >90 mL/min/1.73m2. The eGFR declines with age. An eGFR of 60-89 may be normal in some populations, particularly the elderly, for whom the CKD-EPI formula has not been extensively validated. Use of the eGFR is not recommended in the following populations: Individuals with unstable creatinine concentrations, including patients and those with serious co-morbid conditions. Patients with extremes in muscle mass or diet. The data above are obtained from the National Kidney Disease Education Program (NKDEP) which additionally recommends that when the eGFR is used in patients with extremes of body mass index for purposes of drug dosing, the eGFR should be multiplied by the estimated BMI. [facility] CHEM PANEL Alk Phos 146 unit/L 39 - 136 05/19/2017 [facility] CHEM PANEL AST 15 unit/L 0 - 37 05/19/2017 [facility] CHEM PANEL ALT 17 unit/L 0 - 65 05/19/2017 [facility] CHEM PANEL Bili Total 0.2 mg/dL 0.2 - 1.3 05/19/2017 [facility] CHEM PANEL AGAP 11.9 meq/L 10.0 - 20.0 05/19/2017 [facility] CHEM PANEL Globulin 4.6 g/dL 2.7 - 4.2 05/19/2017 [facility] CHEM PANEL A/G Ratio 0.6 0.7 - 1.6 05/19/2017 [facility] CHEM PANEL B/C Ratio 21 6 - 25 05/19/2017 [facility] CHEM PANEL Chloride Lvl 103 meq/L 95 - 109 05/19/2017 [facility] CHEM PANEL Potassium Lvl 3.9 meq/L 3.5 - 5.1 05/19/2017 [facility] CHEM PANEL Sodium Lvl 140 meq/L 135 - 145 05/19/2017 [facility] CHEM PANEL Creatinine Lvl 1.40 mg/dL 0.50 - 1.40 05/19/2017 [facility] CHEM PANEL Albumin Lvl 2.7 g/dL 3.5 - 5.0 05/19/2017 [facility] CHEM PANEL Total Protein 7.3 g/dL 6.4 - 8.4 05/19/2017 [facility] CHEM PANEL Calcium Lvl 8.6 mg/dL 8.5 - 10.5 05/19/2017 [facility] CHEM PANEL CO2 29 meq/L 24 - 32 05/19/2017 [facility] CHEM PANEL Glucose Lvl 233 mg/dL 70 - 99 05/19/2017 [facility] CHEM PANEL BUN 30 mg/dL 7 - 22 05/19/2017 [facility] HEMATOLOGY MPV 9.4 fL 7.4 - 10.4 05/19/2017 [facility] HEMATOLOGY Platelet 218 K/CMM 133 - 450 05/19/2017 [facility] HEMATOLOGY RDW 14.2 % 11.5 - 14.5 05/19/2017 [facility] [place] MCHC 33.7 g/dL 32.0 - 36.0 05/19/2017 [facility] [place] MCH 30.4 pg 27.0 - 31.0 05/19/2017 [facility] [place] Hct 32.4 % 36.0 - 48.0 05/19/2017 [facility] [place] MCV 90.2 fL 80.0 - 98.0 05/19/2017 [facility] HEMATOLOGY WBC 5.1 K/CMM 3.7 - 10.4 05/19/2017 [facility] HEMATOLOGY RBC 3.60 M/CMM 4.20 - 5.40 05/19/2017 [facility] HEMATOLOGY Hgb 10.9 g/dL 12.0 - 16.0 05/19/2017 [facility] HEMATOLOGY Monocytes 13.0 % 2.0 - 12.0 05/19/2017 [facility] HEMATOLOGY Segs-Bands # 3.0 K/CMM 1.5 - 8.1 05/19/2017 [facility] HEMATOLOGY Eosinophils 3.4 % 0.0 - 4.0 05/19/2017 [facility] HEMATOLOGY Basophils 1.0 % 0.0 - 1.0 05/19/2017 [facility] HEMATOLOGY Lymphocytes 23.7 % 20.0 - 40.0 05/19/2017 [facility] HEMATOLOGY Segs 58.9 % 45.0 - 75.0 05/19/2017 [facility] HEMATOLOGY Monocytes # 0.7 K/CMM 0.0 - 0.8 05/19/2017 [facility] HEMATOLOGY Eosinophils # 0.2 K/CMM 0.0 - 0.5 05/19/2017 [facility] HEMATOLOGY Lymphocytes # 1.2 K/CMM 1.0 - 5.5 05/19/2017 [facility] HEMATOLOGY Basophils # 0.1 K/CMM 0.0 - 0.2 05/19/2017 [facility] Chest 2 views DX Chest 2 views DX PROCEDURE: 2 view chest. Clinical Indication: Cough and fever - chest pain. Comparison: 01/16/2017. FINDINGS: Normal cardiomediastinal silhouette. No focal lung disease. No effusion or pneumothorax. The bones are demineralized. IMPRESSION: No focal lung disease. 05/19/2017 - - Read by: Cornelius Christianson MD Dictated Date/time: 05/19/17 11:24 Electronically Signed by: Cornelius Christianson MD 05/19/17 11:30 FINAL REPORT [facility] URINE AND STOOL UA Ketones Negative mg/dL Negative mg/dL 02/10/2017 [facility] URINE AND STOOL UA Nitrite Positive *ABN* (02/10/17 3:06 AM) Negative 02/10/2017 [facility] URINE AND STOOL UA Blood Small *ABN* (02/10/17 3:06 AM) Negative 02/10/2017 [facility] URINE AND STOOL UA Sq Epi Moderate /LPF Few /LPF 02/10/2017 [facility] URINE AND STOOL UA Bili Negative *NA* (02/10/17 3:06 AM) Negative 02/10/2017 [facility] URINE AND STOOL UA Leuk Est Small *ABN* (02/10/17 3:06 AM) Negative 02/10/2017 [facility] URINE AND STOOL UA Mucus Few /LPF None Seen /LPF 02/10/2017 [facility] URINE AND STOOL UA Bacteria Many /HPF None Seen /HPF 02/10/2017 [facility] URINE AND STOOL UA WBC 71 /HPF 0 - 5 02/10/2017 [facility] URINE AND STOOL UA RBC 2 /HPF 0 - 2 02/10/2017 [facility] URINE AND STOOL UA Urobilinogen <=1.0 mg/dL 0.1 - 1.0 02/10/2017 [facility] URINE AND STOOL UA Spec Grav 1.014 <=1.030 02/10/2017 [facility] URINE AND STOOL UA Protein 100 mg/dL Negative mg/dL 02/10/2017 [facility] URINE AND STOOL UA pH 5.0 5.0 - 8.0 02/10/2017 [facility] URINE AND STOOL UA Glucose Negative mg/dL Negative mg/dL 02/10/2017 [facility] URINE AND STOOL UA Turbidity Marked *ABN* (02/10/17 3:06 AM) Clear 02/10/2017 [facility] URINE AND STOOL UA Color Yellow *NA* (02/10/17 3:06 AM) Yellow 02/10/2017 [facility] CARDIAC ENZYMES CK MB Index 1.8 0.0 - 2.5 02/10/2017 [facility] CARDIAC ENZYMES CK MB 1.3 ng/mL 0.5 - 3.6 02/10/2017 [facility] CARDIAC ENZYMES Total CK 74 unit/L 12 - 191 02/10/2017 [facility] CARDIAC ENZYMES Troponin-I null 0.00 - 0.40 02/10/2017 [facility] CHEM PANEL eGFR 54 mL/min/1.73m2 02/10/2017 Result Comment: The eGFR is calculated using the CKD-EPI formula. In most young, healthy individuals the eGFR will be >90 mL/min/1.73m2. The eGFR declines with age. An eGFR of 60-89 may be normal in some populations, particularly the elderly, for whom the CKD-EPI formula has not been extensively validated. Use of the eGFR is not recommended in the following populations: Individuals with unstable creatinine concentrations, including patients and those with serious co-morbid conditions. Patients with extremes in muscle mass or diet. The data above are obtained from the National Kidney Disease Education Program (NKDEP) which additionally recommends that when the eGFR is used in patients with extremes of body mass index for purposes of drug dosing, the eGFR should be multiplied by the estimated BMI. [facility] CHEM PANEL AGAP 13.8 meq/L 10.0 - 20.0 02/10/2017 [facility] CHEM PANEL Calcium Lvl 8.3 mg/dL 8.5 - 10.5 02/10/2017 [facility] CHEM PANEL Glucose Lvl 188 mg/dL 70 - 99 02/10/2017 [facility] CHEM PANEL Creatinine Lvl 1.10 mg/dL 0.50 - 1.40 02/10/2017 [facility] CHEM PANEL BUN 27 mg/dL 7 - 22 02/10/2017 [facility] CHEM PANEL Sodium Lvl 138 meq/L 135 - 145 02/10/2017 [facility] CHEM PANEL CO2 26 meq/L 24 - 32 02/10/2017 [facility] CHEM PANEL Potassium Lvl 3.8 meq/L 3.5 - 5.1 02/10/2017 [facility] CHEM PANEL Chloride Lvl 102 meq/L 95 - 109 02/10/2017 [facility] CHEM PANEL Bili Indirect 0.1 mg/dL 0.0 - 1.0 02/10/2017 [facility] CHEM PANEL Bili Total 0.2 mg/dL 0.2 - 1.3 02/10/2017 [facility] CHEM PANEL Bili Direct 0.1 mg/dL 0.0 - 0.3 02/10/2017 [facility] CHEM PANEL Total Protein 7.7 g/dL 6.4 - 8.4 02/10/2017 [facility] CHEM PANEL Alk Phos 116 unit/L 39 - 136 02/10/2017 [facility] CHEM PANEL AST 18 unit/L 0 - 37 02/10/2017 [facility] CHEM PANEL ALT 19 unit/L 0 - 65 02/10/2017 [facility] CHEM PANEL A/G Ratio 0.6 0.7 - 1.6 02/10/2017 [facility] CHEM PANEL Globulin 4.9 g/dL 2.7 - 4.2 02/10/2017 [facility] CHEM PANEL Albumin Lvl 2.8 g/dL 3.5 - 5.0 02/10/2017 [facility] CHEM PANEL Lipase Lvl 38 unit/L 73 - 393 02/10/2017 [facility] HEMATOLOGY Eosinophils # 0.2 K/CMM 0.0 - 0.5 02/10/2017 [facility] HEMATOLOGY Monocytes # 0.7 K/CMM 0.0 - 0.8 02/10/2017 [facility] HEMATOLOGY Basophils # 0.1 K/CMM 0.0 - 0.2 02/10/2017 [facility] HEMATOLOGY Segs-Bands # 3.2 K/CMM 1.5 - 8.1 02/10/2017 [facility] HEMATOLOGY Basophils 1.0 % 0.0 - 1.0 02/10/2017 [facility] HEMATOLOGY Lymphocytes # 2.0 K/CMM 1.0 - 5.5 02/10/2017 [facility] [place] Lymphocytes 32.8 % 20.0 - 40.0 02/10/2017 [facility] [place] Segs 52.0 % 45.0 - 75.0 02/10/2017 [facility] [place] Eosinophils 3.5 % 0.0 - 4.0 02/10/2017 [facility] [place] Monocytes 10.7 % 2.0 - 12.0 02/10/2017 [facility] [place] RDW 13.5 % 11.5 - 14.5 02/10/2017 [facility] [place] MCHC 32.8 g/dL 32.0 - 36.0 02/10/2017 [facility] [place] MPV 9.8 fL 7.4 - 10.4 02/10/2017 [facility] [place] Platelet 201 K/CMM 133 - 450 02/10/2017 [facility] [place] Hgb 12.3 g/dL 12.0 - 16.0 02/10/2017 [facility] [place] RBC 4.21 M/CMM 4.20 - 5.40 02/10/2017 [facility] [place] MCV 89.0 fL 80.0 - 98.0 02/10/2017 [facility] [place] Hct 37.5 % 36.0 - 48.0 02/10/2017 [facility] [place] MCH 29.2 pg 27.0 - 31.0 02/10/2017 [facility] [place] WBC 6.1 K/CMM 3.7 - 10.4 02/10/2017 [facility] [place] PTT 21.3 s 22.9 - 35.8 02/10/2017 [facility] [place] PT 12.8 s 12.0 - 14.7 02/10/2017 [facility] [place] INR 0.94 0.85 - 1.17 02/10/2017 [facility] ED Abdomen/Pelvis IV contrast only CT ED Abdomen/Pelvis IV contrast only CT ED Abdomen/Pelvis IV contrast only CT 02/10/2017 1:59 AM CDT Ordering Physician:Elizabet Pereira MD CLINICAL HISTORY: generalized abdominal pain, 75 cc visi, ct dlp 1993.19; COMPARISON: Abdominopelvic CT 01/01/2017 TECHNIQUE: 5 mm thick axial images of the abdomen and pelvis were obtained with IV contrast. . 5 mm thick delayed axial images were obtained. Coronal and sagittal reformations were created. FINDINGS: Right lower lobe calcified granuloma is present. Liver, spleen, pancreas, and adrenal glands are normal. Minimal bilateral perinephric stranding is chronic. No hydroureteronephrosis is present. Partially distended bladder demonstrates mild circumferential mural thickening. Gallbladder is surgically absent. Stomach, small intestine, and colon are normal . Appendix is normal. No mesenteric or retroperitoneal lymphadenopathy is present. No free air or free fluid is present. Mild scattered calcified plaque is present in the abdominal aorta. Bones demonstrate L5/S1 degenerative disc disease, and T12/L1, L4/L5, and L5/S1 central posterior disc osteophyte complexes that causes mild spinal canal stenosis. IMPRESSION: 1. Probable mild cystitis 2. Chronic medical renal disease. SL: [id number] 02/10/2017 - - Read by: Nona Ha MD Dictated Date/time: 02/10/17 04:45 Electronically Signed by: Nona Ha MD 02/10/17 04:51 FINAL REPORT [facility] Brain wo contrast CT Brain wo contrast CT I have reviewed this examination and concur with the interpretation. CT OF THE HEAD WITHOUT CONTRAST DATED 01/16/2017. CLINICAL INDICATION: Post traumatic pain. Fall from standing. COMPARISON: CT head dated 09/01/2016 TECHNIQUE: A CT of the head was performed using thin slice axial images without contrast enhancement. Sagittal and coronal reconstructions were performed. CT Radiation Dose: YOM=327 mGy-cm FINDINGS: Examination of the intracranial structures reveals no acute abnormal areas of increased or decreased density. A 14 x 8 x 9 mm densely calcified extra-axial mass is identified in the left posterior fossa. The bulk of the mass is positioned cranial to the internal auditory canal however asymmetric widening of the left internal artery canal likely indicates internal auditory canal involvement. The mass projects into the left cerebellar pontine angle cistern without significant posterior fossa mass effect. The ventricular system is stable in size and configuration without midline shift. No additional intra or extra-axial masses or fluid collections are identified. There is no CT evidence of acute intracranial hemorrhage. No acute CT abnormalities of the calvarium are detected. Hyperostosis frontalis is noted. The included portions of the paranasal sinuses and mastoid air cells appear clear of acute disease. IMPRESSION: 1. No acute intracranial abnormalities are detected. There is no CT evidence of acute intracranial ischemia, acute intracranial hemorrhage or intracranial mass effect. 2. Stable densely calcified extra-axial mass in the left posterior fossa. While this most likely represents a meningioma, acoustic neuroma would be included in the differential diagnosis. SL:131 01/16/2017 - - Read by: Gil Fisher MD Dictated Date/time: 01/16/17 02:17 Electronically Signed by: Gil Fisher MD 01/16/17 02:18 FINAL REPORT - - Read by: Luciano Johnston MD Dictated Date/time: 01/16/17 02:01 Electronically Signed by: Luciano Johnston MD 01/16/17 02:17 FINAL REPORT [facility] Spine cervical wo contrast CT Spine cervical wo contrast CT Study: Spine cervical wo contrast CT Clinical Indication: Pain Post Trauma pt from [facility] for fall from standing while in bathroom, struck head and shoulder on handicap bar. -LOC, c/o pain to head, left shoulder and left hip. Comparison: CT cervical spine from 09/01/2016 Technique: Multiple axial CT images of the cervical spine were performed without the administration of intravenous contrast. Coronal and sagittal reconstructions were obtained. CT Radiation Dose DLP 2012.77 mGy-cm FINDINGS: Bones are demineralized. Anatomic alignment is maintained across the cervical spine. No acute fracture or dislocation is seen. No significant disc bulges or protrusions are seen. There is no spinal canal stenosis or neural foraminal narrowing. Paravertebral soft tissues are unremarkable. The lung apices are clear. IMPRESSION: 1. No acute bony abnormality of the cervical spine. SL: YAMEL 01/16/2017 - - Read by: Gil Fisher MD Dictated Date/time: 01/16/17 02:04 Electronically Signed by: Gil Fisher MD 01/16/17 02:05 FINAL REPORT [facility] Pelvis AP DX Pelvis AP DX Study: Pelvis, 2 views Clinical Indication: Pelvic pain post injury Comparison: None FINDINGS: 2 views of the pelvis show no acute bony fracture or joint dislocation. Mild bilateral hip osteoarthrosis is seen. Bones are demineralized. IMPRESSION: No acute bony abnormality of the pelvis. SL: YAMEL 01/16/2017 - - Read by: Gil Fisher MD Dictated Date/time: 01/16/17 01:04 Electronically Signed by: Gil Fisher MD 01/16/17 01:04 FINAL REPORT [facility] Chest 1view DX Chest 1view DX Study: Chest 1view DX Clinical Indication: Chest pain post injury Comparison: Chest x-ray from 12/07/2016 FINDINGS: The cardiac silhouette is normal in size. There is mild left basilar scarring. No pleural effusion or pneumothorax is seen. The osseous structures are unremarkable. IMPRESSION: No acute cardiopulmonary disease. SL: YAMEL 01/16/2017 - - Read by: Gil Fisher MD Dictated Date/time: 01/16/17 01:03 Electronically Signed by: Gil Fisher MD 01/16/17 01:03 FINAL REPORT [facility] Hip 2/3 views uni DX Hip 2/3 views uni DX Study: Left hip, 2 views Clinical Indication: Left hip pain post injury Comparison: None FINDINGS: 2 views of the left hip show no acute bony fracture or joint dislocation. Mild left hip osteoarthrosis is seen. Soft tissues are unremarkable. IMPRESSION: No acute bony abnormality of the left hip. SL: YAMEL 01/16/2017 - - Read by: Gil Fisher MD Dictated Date/time: 01/16/17 01:05 Electronically Signed by: Gil Fisher MD 01/16/17 01:05 FINAL REPORT [facility] ELECTROLYTES AGAP 11.7 meq/L 10.0 - 20.0 01/01/2017 [facility] ELECTROLYTES eGFR 54 mL/min/1.73m2 01/01/2017 Result Comment: The eGFR is calculated using the CKD-EPI formula. In most young, healthy individuals the eGFR will be >90 mL/min/1.73m2. The eGFR declines with age. An eGFR of 60-89 may be normal in some populations, particularly the elderly, for whom the CKD-EPI formula has not been extensively validated. Use of the eGFR is not recommended in the following populations: Individuals with unstable creatinine concentrations, including patients and those with serious co-morbid conditions. Patients with extremes in muscle mass or diet. The data above are obtained from the National Kidney Disease Education Program (NKDEP) which additionally recommends that when the eGFR is used in patients with extremes of body mass index for purposes of drug dosing, the eGFR should be multiplied by the estimated BMI. [facility] ELECTROLYTES Creatinine Lvl 1.10 mg/dL 0.50 - 1.40 01/01/2017 [facility] ELECTROLYTES Chloride Lvl 104 meq/L 95 - 109 01/01/2017 [facility] ELECTROLYTES Calcium Lvl 8.7 mg/dL 8.5 - 10.5 01/01/2017 [facility] ELECTROLYTES CO2 30 meq/L 24 - 32 01/01/2017 [facility] ELECTROLYTES Potassium Lvl 3.7 meq/L 3.5 - 5.1 01/01/2017 [facility] ELECTROLYTES Sodium Lvl 142 meq/L 135 - 145 01/01/2017 [facility] ELECTROLYTES BUN 25 mg/dL 7 - 22 01/01/2017 [facility] ELECTROLYTES Glucose Lvl 135 mg/dL 70 - 99 01/01/2017 [facility] HEMATOLOGY PTT 28.6 s 22.9 - 35.8 01/01/2017 [facility] HEMATOLOGY INR 1.04 0.85 - 1.17 01/01/2017 [facility] [place] PT 13.8 s 12.0 - 14.7 01/01/2017 [facility] [place] MCH 29.9 pg 27.0 - 31.0 01/01/2017 [facility] [place] RDW 14.5 % 11.5 - 14.5 01/01/2017 [facility] [place] MCHC 33.9 g/dL 32.0 - 36.0 01/01/2017 [facility] [place] MCV 88.2 fL 80.0 - 98.0 01/01/2017 [facility] [place] MPV 8.5 fL 7.4 - 10.4 01/01/2017 [facility] [place] Platelet 285 K/CMM 133 - 450 01/01/2017 [facility] [place] Hgb 11.1 g/dL 12.0 - 16.0 01/01/2017 [facility] [place] WBC 5.7 K/CMM 3.7 - 10.4 01/01/2017 [facility] [place] Hct 32.6 % 36.0 - 48.0 01/01/2017 [facility] [place] RBC 3.70 M/CMM 4.20 - 5.40 01/01/2017 [facility] [place] Basophils # 0.1 K/CMM 0.0 - 0.2 01/01/2017 [facility] [place] Lymphocytes 27.0 % 20.0 - 40.0 01/01/2017 [facility] [place] Segs 54.0 % 45.0 - 75.0 01/01/2017 [facility] [place] Monocytes # 0.7 K/CMM 0.0 - 0.8 01/01/2017 [facility] HEMATOLOGY Lymphocytes # 1.5 K/CMM 1.0 - 5.5 01/01/2017 [facility] HEMATOLOGY Eosinophils 4.8 % 0.0 - 4.0 01/01/2017 [facility] HEMATOLOGY Monocytes 12.9 % 2.0 - 12.0 01/01/2017 [facility] HEMATOLOGY Eosinophils # 0.3 K/CMM 0.0 - 0.5 01/01/2017 [facility] HEMATOLOGY Segs-Bands # 3.1 K/CMM 1.5 - 8.1 01/01/2017 [facility] HEMATOLOGY Basophils 1.3 % 0.0 - 1.0 01/01/2017 [facility] URINE AND STOOL UA Color Ltyellow 01/01/2017 [facility] URINE AND STOOL UA Urobilinogen <=1.0 mg/dL 0.1 - 1.0 01/01/2017 [facility] URINE AND STOOL UA WBC 16 /HPF 0 - 5 01/01/2017 [facility] URINE AND STOOL UA RBC 15 /HPF 0 - 2 01/01/2017 [facility] URINE AND STOOL UA Nitrite Negative (12/31/16 11:34 PM) Negative 01/01/2017 [facility] URINE AND STOOL UA Leuk Est Moderate *ABN* (12/31/16 11:34 PM) Negative 01/01/2017 [facility] URINE AND STOOL UA Sq Epi Occasional /LPF Few /LPF 01/01/2017 [facility] URINE AND STOOL UA Blood Moderate *ABN* (12/31/16 11:34 PM) Negative 01/01/2017 [facility] URINE AND STOOL UA Bili Negative *NA* (12/31/16 11:34 PM) Negative 01/01/2017 [facility] URINE AND STOOL UA pH 6.0 5.0 - 8.0 01/01/2017 [facility] URINE AND STOOL UA Protein 100 mg/dL Negative mg/dL 01/01/2017 [facility] URINE AND STOOL UA Spec Grav 1.009 <=1.030 01/01/2017 [facility] URINE AND STOOL UA Glucose Negative mg/dL Negative mg/dL 01/01/2017 [facility] URINE AND STOOL UA Ketones Negative mg/dL Negative mg/dL 01/01/2017 [facility] URINE AND STOOL UA Turbidity Slight *ABN* (12/31/16 11:34 PM) Clear 01/01/2017 [facility] ED Abdomen/Pelvis IV contrast only CT ED Abdomen/Pelvis IV contrast only CT Study: CT abdomen and pelvis with contrast. HISTORY: Flank pain. Comments: Abdomen pelvic CT was obtained utilizing multiple axial images from the lung bases to the pelvic outlet. Intravenous contrast was given. Sagittal and coronal reconstructions were reviewed. Total exam DLP is 2071 mgy-cm. Visualized lower chest: The lung bases are clear. Normal size heart. ABDOMEN: The liver, spleen, gallbladder, kidneys, pancreas and adrenal glands are within normal limits. The small and large bowel loops are nondilated. No evidence of acute appendicitis or diverticulitis. No free intraperitoneal air or fluid collections. Gas pockets in the urinary bladder may be due to prior Olvera catheter placement Degenerative changes in the spine Impression: No nephroureteral calculi, hydronephrosis or hydroureter Gas pockets in the urinary bladder may be due to prior Olvera catheter placement 01/01/2017 - - Read by: Tish Evans MD Dictated Date/time: 01/01/17 00:51 Electronically Signed by: Tish Evans MD 01/01/17 00:58 FINAL REPORT [facility] CHEM PANEL eGFR 60 mL/min/1.73m2 12/08/2016 Result Comment: The eGFR is calculated using the CKD-EPI formula. In most young, healthy individuals the eGFR will be >90 mL/min/1.73m2. The eGFR declines with age. An eGFR of 60-89 may be normal in some populations, particularly the elderly, for whom the CKD-EPI formula has not been extensively validated. Use of the eGFR is not recommended in the following populations: Individuals with unstable creatinine concentrations, including patients and those with serious co-morbid conditions. Patients with extremes in muscle mass or diet. The data above are obtained from the National Kidney Disease Education Program (NKDEP) which additionally recommends that when the eGFR is used in patients with extremes of body mass index for purposes of drug dosing, the eGFR should be multiplied by the estimated BMI. [facility] CHEM PANEL BUN 28 mg/dL 7 - 22 12/08/2016 [facility] CHEM PANEL Sodium Lvl 140 meq/L 135 - 145 12/08/2016 [facility] CHEM PANEL Potassium Lvl 3.6 meq/L 3.5 - 5.1 12/08/2016 [facility] CHEM PANEL Creatinine Lvl 1.00 mg/dL 0.50 - 1.40 12/08/2016 [facility] CHEM PANEL Glucose Lvl 148 mg/dL 70 - 99 12/08/2016 [facility] CHEM PANEL Calcium Lvl 8.3 mg/dL 8.5 - 10.5 12/08/2016 [facility] CHEM PANEL Chloride Lvl 103 meq/L 95 - 109 12/08/2016 [facility] CHEM PANEL CO2 28 meq/L 24 - 32 12/08/2016 [facility] CHEM PANEL AGAP 12.6 meq/L 10.0 - 20.0 12/08/2016 [facility] HEMATOLOGY Monocytes # 0.7 K/CMM 0.0 - 0.8 12/08/2016 [facility] HEMATOLOGY Basophils # 0.1 K/CMM 0.0 - 0.2 12/08/2016 [facility] HEMATOLOGY Eosinophils # 0.2 K/CMM 0.0 - 0.5 12/08/2016 [facility] HEMATOLOGY Segs-Bands # 3.4 K/CMM 1.5 - 8.1 12/08/2016 [facility] HEMATOLOGY Lymphocytes # 1.8 K/CMM 1.0 - 5.5 12/08/2016 [facility] HEMATOLOGY Basophils 0.9 % 0.0 - 1.0 12/08/2016 [facility] HEMATOLOGY Lymphocytes 29.1 % 20.0 - 40.0 12/08/2016 [facility] HEMATOLOGY Eosinophils 3.5 % 0.0 - 4.0 12/08/2016 [facility] HEMATOLOGY Monocytes 11.6 % 2.0 - 12.0 12/08/2016 [facility] HEMATOLOGY Segs 54.9 % 45.0 - 75.0 12/08/2016 [facility] HEMATOLOGY MPV 9.2 fL 7.4 - 10.4 12/08/2016 [facility] HEMATOLOGY Platelet 225 K/CMM 133 - 450 12/08/2016 [facility] HEMATOLOGY MCHC 34.5 g/dL 32.0 - 36.0 12/08/2016 [facility] HEMATOLOGY RDW 14.5 % 11.5 - 14.5 12/08/2016 [facility] HEMATOLOGY MCH 30.0 pg 27.0 - 31.0 12/08/2016 [facility] HEMATOLOGY Hgb 10.7 g/dL 12.0 - 16.0 12/08/2016 [facility] HEMATOLOGY Hct 31.0 % 36.0 - 48.0 12/08/2016 [facility] HEMATOLOGY WBC 6.1 K/CMM 3.7 - 10.4 12/08/2016 [facility] HEMATOLOGY RBC 3.56 M/CMM 4.20 - 5.40 12/08/2016 [facility] HEMATOLOGY MCV 87.0 fL 80.0 - 98.0 12/08/2016 [facility] URINE AND STOOL UA Urobilinogen <=1.0 mg/dL 0.1 - 1.0 12/08/2016 [facility] URINE AND STOOL UA Mucus Few /LPF None Seen /LPF 12/08/2016 [facility] URINE AND STOOL UA RBC 4 /HPF 0 - 2 12/08/2016 [facility] URINE AND STOOL UA Bacteria Moderate /HPF None Seen /HPF 12/08/2016 [facility] URINE AND STOOL UA Hyal Cast 1 /LPF 0 - 2 12/08/2016 [facility] URINE AND STOOL UA Spec Grav 1.005 <=1.030 12/08/2016 [facility] URINE AND STOOL UA Bili Negative *NA* (12/07/16 11:21 PM) Negative 12/08/2016 [facility] URINE AND STOOL UA Nitrite Positive *ABN* (12/07/16 11:21 PM) Negative 12/08/2016 [facility] URINE AND STOOL UA Blood Small *ABN* (12/07/16 11:21 PM) Negative 12/08/2016 [facility] URINE AND STOOL UA Leuk Est Large *ABN* (12/07/16 11:21 PM) Negative 12/08/2016 [facility] URINE AND STOOL UA WBC null 0 - 5 12/08/2016 [facility] URINE AND STOOL UA Sq Epi Occasional /LPF Few /LPF 12/08/2016 [facility] URINE AND STOOL UA Protein 100 mg/dL Negative mg/dL 12/08/2016 [facility] URINE AND STOOL UA pH 5.0 5.0 - 8.0 12/08/2016 [facility] URINE AND STOOL UA Glucose Negative mg/dL Negative mg/dL 12/08/2016 [facility] URINE AND STOOL UA Ketones Negative mg/dL Negative mg/dL 12/08/2016 [facility] URINE AND STOOL UA Turbidity Slight *ABN* (12/07/16 11:21 PM) Clear 12/08/2016 [facility] URINE AND STOOL UA Color Yellow *NA* (12/07/16 11:21 PM) Yellow 12/08/2016 [facility] CARDIAC ENZYMES CK MB Index 1.8 0.0 - 2.5 12/08/2016 [facility] CARDIAC ENZYMES Total CK 94 unit/L 12 - 191 12/08/2016 [facility] CARDIAC ENZYMES CK MB 1.7 ng/mL 0.5 - 3.6 12/08/2016 [facility] CARDIAC ENZYMES Troponin-I null 0.00 - 0.40 12/08/2016 [facility] CHEM PANEL Bili Total 0.2 mg/dL 0.2 - 1.3 12/08/2016 [facility] CHEM PANEL eGFR 54 mL/min/1.73m2 12/08/2016 Result Comment: The eGFR is calculated using the CKD-EPI formula. In most young, healthy individuals the eGFR will be >90 mL/min/1.73m2. The eGFR declines with age. An eGFR of 60-89 may be normal in some populations, particularly the elderly, for whom the CKD-EPI formula has not been extensively validated. Use of the eGFR is not recommended in the following populations: Individuals with unstable creatinine concentrations, including patients and those with serious co-morbid conditions. Patients with extremes in muscle mass or diet. The data above are obtained from the National Kidney Disease Education Program (NKDEP) which additionally recommends that when the eGFR is used in patients with extremes of body mass index for purposes of drug dosing, the eGFR should be multiplied by the estimated BMI. [facility] CHEM PANEL Globulin 5.2 g/dL 2.7 - 4.2 12/08/2016 [facility] CHEM PANEL Albumin Lvl 3.3 g/dL 3.5 - 5.0 12/08/2016 [facility] CHEM PANEL BUN 27 mg/dL 7 - 22 12/08/2016 [facility] CHEM PANEL Glucose Lvl 50 mg/dL 70 - 99 12/08/2016 Result Comment: Critical Result(s) called to Ana Yarbrough at 12/07/2016 20:47 by Josefina Gutierrez. Read back OK. [facility] CHEM PANEL Chloride Lvl 104 meq/L 95 - 109 12/08/2016 [facility] CHEM PANEL Potassium Lvl 3.6 meq/L 3.5 - 5.1 12/08/2016 [facility] CHEM PANEL Total Protein 8.5 g/dL 6.4 - 8.4 12/08/2016 [facility] CHEM PANEL CO2 27 meq/L 24 - 32 12/08/2016 [facility] CHEM PANEL B/C Ratio 25 6 - 25 12/08/2016 [facility] CHEM PANEL Calcium Lvl 8.9 mg/dL 8.5 - 10.5 12/08/2016 [facility] CHEM PANEL Alk Phos 123 unit/L 39 - 136 12/08/2016 [facility] CHEM PANEL AST 27 unit/L 0 - 37 12/08/2016 [facility] CHEM PANEL AGAP 12.6 meq/L 10.0 - 20.0 12/08/2016 [facility] CHEM PANEL ALT 19 unit/L 0 - 65 12/08/2016 [facility] CHEM PANEL A/G Ratio 0.6 0.7 - 1.6 12/08/2016 [facility] CHEM PANEL Sodium Lvl 140 meq/L 135 - 145 12/08/2016 [facility] CHEM PANEL Creatinine Lvl 1.10 mg/dL 0.50 - 1.40 12/08/2016 [facility] CHEM PANEL Lactic Acid Lvl 1.5 mMol/L 0.5 - 2.2 12/08/2016 [facility] CHEM PANEL Procalcitonin Lvl 0.05 ng/mL 0.00 - 0.10 12/08/2016 [facility] HEMATOLOGY Basophils # 0.1 K/CMM 0.0 - 0.2 12/08/2016 [facility] HEMATOLOGY Eosinophils # 0.2 K/CMM 0.0 - 0.5 12/08/2016 [facility] HEMATOLOGY Monocytes # 1.0 K/CMM 0.0 - 0.8 12/08/2016 [facility] HEMATOLOGY Lymphocytes # 1.9 K/CMM 1.0 - 5.5 12/08/2016 [facility] HEMATOLOGY Segs-Bands # 4.7 K/CMM 1.5 - 8.1 12/08/2016 [facility] HEMATOLOGY Basophils 1.1 % 0.0 - 1.0 12/08/2016 [facility] HEMATOLOGY Eosinophils 2.7 % 0.0 - 4.0 12/08/2016 [facility] HEMATOLOGY Monocytes 13.1 % 2.0 - 12.0 12/08/2016 [facility] HEMATOLOGY Lymphocytes 23.8 % 20.0 - 40.0 12/08/2016 [facility] HEMATOLOGY Segs 59.3 % 45.0 - 75.0 12/08/2016 [facility] HEMATOLOGY PT 13.4 s 12.0 - 14.7 12/08/2016 [facility] HEMATOLOGY INR 1.00 0.85 - 1.17 12/08/2016 [facility] HEMATOLOGY MPV 9.1 fL 7.4 - 10.4 12/08/2016 [facility] HEMATOLOGY Platelet 290 K/CMM 133 - 450 12/08/2016 [facility] HEMATOLOGY RDW 14.5 % 11.5 - 14.5 12/08/2016 [facility] [place] MCHC 33.6 g/dL 32.0 - 36.0 12/08/2016 [facility] [place] MCH 29.7 pg 27.0 - 31.0 12/08/2016 [facility] [place] MCV 88.3 fL 80.0 - 98.0 12/08/2016 [facility] [place] Hct 28.5 % 36.0 - 48.0 12/08/2016 [facility] [place] Hgb 9.6 g/dL 12.0 - 16.0 12/08/2016 [facility] [place] RBC 3.23 M/CMM 4.20 - 5.40 12/08/2016 [facility] [place] WBC 8.0 K/CMM 3.7 - 10.4 12/08/2016 [facility] [place] PTT 32.3 s 22.9 - 35.8 12/08/2016 [facility] Chest 1view DX Chest 1view DX Chest 1view DX 12/07/2016 6:22 PM [facility] Ordering Physician: Marita Gamino CLINICAL HISTORY: Fever; TECHNIQUE: AP view of the chest were obtained. COMPARISON: 10/15/2016 FINDINGS: Lungs are clear. No pleural effusion of pneumothorax is present. Cardiomediastinal silhouette is normal. Bones are normal. IMPRESSION: No acute abnormality of the chest. SL: [id number] 12/07/2016 - - Read by: Nona Ha MD Dictated Date/time: 12/07/16 20:57 Electronically Signed by: Nona Ha MD 12/07/16 20:57 FINAL REPORT [facility] CHEM PANEL Glucose Lvl 234 mg/dL 70 - 99 11/14/2016 [facility] CHEM PANEL CO2 28 meq/L 24 - 32 11/14/2016 [facility] CHEM PANEL Calcium Lvl 8.5 mg/dL 8.5 - 10.5 11/14/2016 [facility] CHEM PANEL BUN 26 mg/dL 7 - 22 11/14/2016 [facility] CHEM PANEL Creatinine Lvl 1.50 mg/dL 0.50 - 1.40 11/14/2016 [facility] CHEM PANEL Chloride Lvl 100 meq/L 95 - 109 11/14/2016 [facility] CHEM PANEL Sodium Lvl 139 meq/L 135 - 145 11/14/2016 [facility] CHEM PANEL Potassium Lvl 3.5 meq/L 3.5 - 5.1 11/14/2016 [facility] CHEM PANEL eGFR 37 mL/min/1.73m2 11/14/2016 Result Comment: The eGFR is calculated using the CKD-EPI formula. In most young, healthy individuals the eGFR will be >90 mL/min/1.73m2. The eGFR declines with age. An eGFR of 60-89 may be normal in some populations, particularly the elderly, for whom the CKD-EPI formula has not been extensively validated. Use of the eGFR is not recommended in the following populations: Individuals with unstable creatinine concentrations, including patients and those with serious co-morbid conditions. Patients with extremes in muscle mass or diet. The data above are obtained from the National Kidney Disease Education Program (NKDEP) which additionally recommends that when the eGFR is used in patients with extremes of body mass index for purposes of drug dosing, the eGFR should be multiplied by the estimated BMI. [facility] CHEM PANEL AGAP 14.5 meq/L 10.0 - 20.0 11/14/2016 [facility] [place] Lymphocytes # 1.1 K/CMM 1.0 - 5.5 11/14/2016 [facility] [place] Eosinophils # 0.2 K/CMM 0.0 - 0.5 11/14/2016 [facility] [place] Monocytes # 0.5 K/CMM 0.0 - 0.8 11/14/2016 [facility] [place] Eosinophils 4.0 % 0.0 - 4.0 11/14/2016 [facility] [place] Monocytes 13.8 % 2.0 - 12.0 11/14/2016 [facility] [place] Lymphocytes 27.3 % 20.0 - 40.0 11/14/2016 [facility] [place] Basophils 1.1 % 0.0 - 1.0 11/14/2016 [facility] [place] Segs 53.8 % 45.0 - 75.0 11/14/2016 [facility] [place] Segs-Bands # 2.1 K/CMM 1.5 - 8.1 11/14/2016 [facility] [place] RDW 14.1 % 11.5 - 14.5 11/14/2016 [facility] [place] MPV 8.8 fL 7.4 - 10.4 11/14/2016 [facility] [place] Platelet 217 K/CMM 133 - 450 11/14/2016 [facility] [place] MCHC 33.1 g/dL 32.0 - 36.0 11/14/2016 [facility] [place] MCV 88.2 fL 80.0 - 98.0 11/14/2016 [facility] HEMATOLOGY Hct 34.4 % 36.0 - 48.0 11/14/2016 [facility] HEMATOLOGY MCH 29.2 pg 27.0 - 31.0 11/14/2016 [facility] HEMATOLOGY Hgb 11.4 g/dL 12.0 - 16.0 11/14/2016 [facility] HEMATOLOGY WBC 3.9 K/CMM 3.7 - 10.4 11/14/2016 [facility] HEMATOLOGY RBC 3.90 M/CMM 4.20 - 5.40 11/14/2016 [facility] CHEM PANEL Lipase Lvl 124 unit/L 73 - 393 11/12/2016 [facility] CHEM PANEL Amylase Lvl 23 unit/L 25 - 115 11/12/2016 [facility] CHEM PANEL A/G Ratio 0.6 0.7 - 1.6 11/12/2016 [facility] CHEM PANEL Globulin 4.6 g/dL 2.7 - 4.2 11/12/2016 [facility] CHEM PANEL AGAP 11.6 meq/L 10.0 - 20.0 11/12/2016 [facility] CHEM PANEL B/C Ratio 21 6 - 25 11/12/2016 [facility] CHEM PANEL Bili Total 0.3 mg/dL 0.2 - 1.3 11/12/2016 [facility] CHEM PANEL Alk Phos 131 unit/L 39 - 136 11/12/2016 [facility] CHEM PANEL eGFR 32 mL/min/1.73m2 11/12/2016 Result Comment: The eGFR is calculated using the CKD-EPI formula. In most young, healthy individuals the eGFR will be >90 mL/min/1.73m2. The eGFR declines with age. An eGFR of 60-89 may be normal in some populations, particularly the elderly, for whom the CKD-EPI formula has not been extensively validated. Use of the eGFR is not recommended in the following populations: Individuals with unstable creatinine concentrations, including patients and those with serious co-morbid conditions. Patients with extremes in muscle mass or diet. The data above are obtained from the National Kidney Disease Education Program (NKDEP) which additionally recommends that when the eGFR is used in patients with extremes of body mass index for purposes of drug dosing, the eGFR should be multiplied by the estimated BMI. [facility] CHEM PANEL Creatinine Lvl 1.70 mg/dL 0.50 - 1.40 11/12/2016 [facility] CHEM PANEL BUN 35 mg/dL 7 - 22 11/12/2016 [facility] CHEM PANEL Sodium Lvl 139 meq/L 135 - 145 11/12/2016 [facility] CHEM PANEL Glucose Lvl 230 mg/dL 70 - 99 11/12/2016 [facility] CHEM PANEL Total Protein 7.4 g/dL 6.4 - 8.4 11/12/2016 [facility] CHEM PANEL ALT 21 unit/L 0 - 65 11/12/2016 [facility] CHEM PANEL Albumin Lvl 2.8 g/dL 3.5 - 5.0 11/12/2016 [facility] CHEM PANEL AST 15 unit/L 0 - 37 11/12/2016 [facility] CHEM PANEL CO2 30 meq/L 24 - 32 11/12/2016 [facility] CHEM PANEL Potassium Lvl 3.6 meq/L 3.5 - 5.1 11/12/2016 [facility] CHEM PANEL Chloride Lvl 101 meq/L 95 - 109 11/12/2016 [facility] CHEM PANEL Calcium Lvl 8.6 mg/dL 8.5 - 10.5 11/12/2016 [facility] HEMATOLOGY MPV 8.9 fL 7.4 - 10.4 11/12/2016 [facility] HEMATOLOGY RBC 3.53 M/CMM 4.20 - 5.40 11/12/2016 [facility] HEMATOLOGY WBC 5.4 K/CMM 3.7 - 10.4 11/12/2016 [facility] HEMATOLOGY Hct 31.5 % 36.0 - 48.0 11/12/2016 [facility] HEMATOLOGY Hgb 10.3 g/dL 12.0 - 16.0 11/12/2016 [facility] HEMATOLOGY MCV 89.1 fL 80.0 - 98.0 11/12/2016 [facility] HEMATOLOGY MCHC 32.8 g/dL 32.0 - 36.0 11/12/2016 [facility] HEMATOLOGY MCH 29.3 pg 27.0 - 31.0 11/12/2016 [facility] HEMATOLOGY Platelet 210 K/CMM 133 - 450 11/12/2016 [facility] HEMATOLOGY RDW 14.1 % 11.5 - 14.5 11/12/2016 [facility] HEMATOLOGY Lymphocytes # 1.2 K/CMM 1.0 - 5.5 11/12/2016 [facility] HEMATOLOGY Segs-Bands # 3.4 K/CMM 1.5 - 8.1 11/12/2016 [facility] HEMATOLOGY Eosinophils # 0.2 K/CMM 0.0 - 0.5 11/12/2016 [facility] HEMATOLOGY Monocytes # 0.6 K/CMM 0.0 - 0.8 11/12/2016 [facility] HEMATOLOGY Eosinophils 3.0 % 0.0 - 4.0 11/12/2016 [facility] HEMATOLOGY Segs 62.9 % 45.0 - 75.0 11/12/2016 [facility] HEMATOLOGY Monocytes 10.8 % 2.0 - 12.0 11/12/2016 [facility] HEMATOLOGY Lymphocytes 22.6 % 20.0 - 40.0 11/12/2016 [facility] HEMATOLOGY Basophils 0.7 % 0.0 - 1.0 11/12/2016 [facility] URINE AND STOOL UA Urobilinogen <=1.0 mg/dL 0.1 - 1.0 11/12/2016 [facility] URINE AND STOOL UA Protein 30 mg/dL Negative mg/dL 11/12/2016 [facility] URINE AND STOOL UA pH 5.0 5.0 - 8.0 11/12/2016 [facility] URINE AND STOOL UA Turbidity Slight *ABN* (11/12/16 2:29 AM) Clear 11/12/2016 [facility] URINE AND STOOL UA Spec Grav 1.009 <=1.030 11/12/2016 [facility] URINE AND STOOL UA Color Yellow *NA* (11/12/16 2:29 AM) Yellow 11/12/2016 [facility] URINE AND STOOL UA Bili Negative *NA* (11/12/16 2:29 AM) Negative 11/12/2016 [facility] URINE AND STOOL UA Blood Small *ABN* (11/12/16 2:29 AM) Negative 11/12/2016 [facility] URINE AND STOOL UA Ketones Negative mg/dL Negative mg/dL 11/12/2016 [facility] URINE AND STOOL UA Glucose Negative mg/dL Negative mg/dL 11/12/2016 [facility] URINE AND STOOL UA RBC 3 /HPF 0 - 2 11/12/2016 [facility] URINE AND STOOL UA Sq Epi Few /LPF Few /LPF 11/12/2016 [facility] URINE AND STOOL UA Nitrite Negative (11/12/16 2:29 AM) Negative 11/12/2016 [facility] URINE AND STOOL UA Leuk Est Large *ABN* (11/12/16 2:29 AM) Negative 11/12/2016 [facility] URINE AND STOOL UA WBC 81 /HPF 0 - 5 11/12/2016 [facility] URINE AND STOOL UA Trans Epi 1 /LPF <=0 /LPF 11/12/2016 [facility] URINE AND STOOL UA Bacteria Occasional /HPF None Seen /HPF 11/12/2016 [facility] Renal Stone CT Renal Stone CT Clinical Indication: pt c/o abd pain, foul smelling urine x several days. pt just left the rehab s/p bladder surgery for bladder mesh and infection --NO ACC/CANCER; Comparison: 10/01/2016 TECHNIQUE: Helical imaging was performed diaphragm through the symphysis with multiplanar reformations obtained. IV CONTRAST: None GI CONTRAST: No CT Radiation Dose: [id number] mGy-cm FINDINGS: LOWER CHEST: The lung bases are clear. SOLID ORGANS: The liver, gallbladder, spleen, pancreas, adrenal glands and kidneys are normal. No hydronephrosis or renal stones are present. BOWEL: Mild stool is noted. There is dense debris within the normal caliber appendix which may represent prior contrast or fecaliths. No inflammatory changes are present. PERITONEUM: No free intraperitoneal fluid or air. RETROPERITONEUM: No adenopathy. The aorta is normal. PELVIS: No pelvic mass. The urinary bladder contains gas. Prior hysterectomy has been performed.. MUSCULOSKELETAL: The skeleton is intact. IMPRESSION: 1. No urinary tract obstruction or stones. 2. Gas within urinary bladder which may represent cystitis or recent catheterization. SL: KEISHA-Valarie 11/12/2016 - - Read by: Miguel Wayne MD Dictated Date/time: 11/12/16 04:37 Electronically Signed by: Miguel Wayne MD 11/12/16 04:46 FINAL REPORT [facility] ELECTROLYTES CO2 31 meq/L 24 - 32 10/17/2016 [facility] ELECTROLYTES Chloride Lvl 99 meq/L 95 - 109 10/17/2016 [facility] ELECTROLYTES eGFR 18 mL/min/1.73m2 10/17/2016 Result Comment: The eGFR is calculated using the CKD-EPI formula. In most young, healthy individuals the eGFR will be >90 mL/min/1.73m2. The eGFR declines with age. An eGFR of 60-89 may be normal in some populations, particularly the elderly, for whom the CKD-EPI formula has not been extensively validated. Use of the eGFR is not recommended in the following populations: Individuals with unstable creatinine concentrations, including patients and those with serious co-morbid conditions. Patients with extremes in muscle mass or diet. The data above are obtained from the National Kidney Disease Education Program (NKDEP) which additionally recommends that when the eGFR is used in patients with extremes of body mass index for purposes of drug dosing, the eGFR should be multiplied by the estimated BMI. [facility] ELECTROLYTES BUN 65 mg/dL 7 - 22 10/17/2016 [facility] ELECTROLYTES Glucose Lvl 266 mg/dL 70 - 99 10/17/2016 [facility] ELECTROLYTES Albumin Lvl 2.5 g/dL 3.5 - 5.0 10/17/2016 [facility] ELECTROLYTES Calcium Lvl 8.1 mg/dL 8.5 - 10.5 10/17/2016 [facility] ELECTROLYTES AGAP 13.0 meq/L 10.0 - 20.0 10/17/2016 [facility] ELECTROLYTES Potassium Lvl 5.0 meq/L 3.5 - 5.1 10/17/2016 [facility] ELECTROLYTES Sodium Lvl 138 meq/L 135 - 145 10/17/2016 [facility] ELECTROLYTES Creatinine Lvl 2.70 mg/dL 0.50 - 1.40 10/17/2016 [facility] ELECTROLYTES Phosphorus 4.1 mg/dL 2.5 - 4.5 10/17/2016 [facility] Knee wo contrast MRI Knee wo contrast MRI EXAM: MRI of the right knee without contrast INDICATION: Right knee pain and swelling COMPARISON: None. TECHNIQUE: Multiplanar, multisequence magnetic resonance imaging of the right knee was performed without the administration of intravenous gadolinium contrast. FINDINGS: Intercondylar notch: ACL and PCL are intact. Medial compartment: Joint space narrowing and mild marginal osseous spurring is seen. Low-grade chondrosis along the central weightbearing portion of the medial femoral condyle and medial tibial plateau is noted. Intrasubstance degeneration throughout the medial meniscus body and posterior horn is seen without discrete tear. MCL is intact. Lateral compartment: Diffuse intrasubstance degeneration throughout the entire lateral meniscus is seen. Horizontal oblique tear of the posterior horn is seen, exiting into the inferior articular surface. Low-grade partial-thickness cartilage fissuring along the lateral tibial plateau is seen. LCL complex is intact. Posterolateral corner structures are intact. Patellofemoral compartment: Full-thickness cartilage fissuring with underlying cystic change along the superior lateral patellar facet is seen. Extensor mechanism: Quadriceps and patellar tendons are intact. Other findings: Small joint effusion is seen. Moderate-severe edema of the circumferential soft tissues about the knee is seen. IMPRESSION: 1. Full-thickness cartilage fissuring with underlying cystic change of the superior lateral patellar facet. 2. 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 3. Low-grade chondrosis of the lateral tibial plateau. 4. Diffuse intrasubstance degeneration throughout the lateral meniscus with horizontal oblique tear of the posterior horn, exiting into the inferior articular surface. 5. Small joint effusion. SL: [id number] 10/17/2016 - - Read by: Gil Fisher MD Dictated Date/time: 10/17/16 10:06 Electronically Signed by: Gil Fisher MD 10/17/16 10:12 FINAL REPORT [facility] CHEM PANEL Phosphorus 4.6 mg/dL 2.5 - 4.5 10/16/2016 [facility] CHEM PANEL Sodium Lvl 136 meq/L 135 - 145 10/16/2016 [facility] CHEM PANEL AGAP 12.2 meq/L 10.0 - 20.0 10/16/2016 [facility] CHEM PANEL Albumin Lvl 2.4 g/dL 3.5 - 5.0 10/16/2016 [facility] CHEM PANEL eGFR 20 mL/min/1.73m2 10/16/2016 Result Comment: The eGFR is calculated using the CKD-EPI formula. In most young, healthy individuals the eGFR will be >90 mL/min/1.73m2. The eGFR declines with age. An eGFR of 60-89 may be normal in some populations, particularly the elderly, for whom the CKD-EPI formula has not been extensively validated. Use of the eGFR is not recommended in the following populations: Individuals with unstable creatinine concentrations, including patients and those with serious co-morbid conditions. Patients with extremes in muscle mass or diet. The data above are obtained from the National Kidney Disease Education Program (NKDEP) which additionally recommends that when the eGFR is used in patients with extremes of body mass index for purposes of drug dosing, the eGFR should be multiplied by the estimated BMI. [facility] CHEM PANEL Chloride Lvl 101 meq/L 95 - 109 10/16/2016 [facility] CHEM PANEL Potassium Lvl 5.2 meq/L 3.5 - 5.1 10/16/2016 [facility] CHEM PANEL Calcium Lvl 8.4 mg/dL 8.5 - 10.5 10/16/2016 [facility] CHEM PANEL CO2 28 meq/L 24 - 32 10/16/2016 [facility] CHEM PANEL Glucose Lvl 214 mg/dL 70 - 99 10/16/2016 [facility] CHEM PANEL Creatinine Lvl 2.50 mg/dL 0.50 - 1.40 10/16/2016 [facility] CHEM PANEL BUN 57 mg/dL 7 - 22 10/16/2016 [facility] URINE AND STOOL UA RBC 1 /HPF 0 - 2 10/15/2016 [facility] URINE AND STOOL UA [place] Yeast Moderate /HPF None Seen /HPF 10/15/2016 [facility] URINE AND STOOL UA Urobilinogen <=1.0 mg/dL 0.1 - 1.0 10/15/2016 [facility] URINE AND STOOL UA Color Ltyellow 10/15/2016 [facility] URINE AND STOOL UA Spec Grav 1.006 <=1.030 10/15/2016 [facility] URINE AND STOOL UA Turbidity Clear (10/15/16 1:17 PM) Clear 10/15/2016 [facility] URINE AND STOOL UA Bili Negative *NA* (10/15/16 1:17 PM) Negative 10/15/2016 [facility] URINE AND STOOL UA Glucose Negative mg/dL Negative mg/dL 10/15/2016 [facility] URINE AND STOOL UA Ketones Negative mg/dL Negative mg/dL 10/15/2016 [facility] URINE AND STOOL UA Protein Negative mg/dL Negative mg/dL 10/15/2016 [facility] URINE AND STOOL UA pH 5.0 5.0 - 8.0 10/15/2016 [facility] URINE AND STOOL UA WBC 1 /HPF 0 - 5 10/15/2016 [facility] URINE AND STOOL UA Sq Epi Occasional /LPF Few /LPF 10/15/2016 [facility] URINE AND STOOL UA Leuk Est Negative (10/15/16 1:17 PM) Negative 10/15/2016 [facility] URINE AND STOOL UA Blood Negative (10/15/16 1:17 PM) Negative 10/15/2016 [facility] URINE AND STOOL UA Nitrite Negative (10/15/16 1:17 PM) Negative 10/15/2016 [facility] CHEM PANEL eGFR 18 mL/min/1.73m2 10/15/2016 Result Comment: The eGFR is calculated using the CKD-EPI formula. In most young, healthy individuals the eGFR will be >90 mL/min/1.73m2. The eGFR declines with age. An eGFR of 60-89 may be normal in some populations, particularly the elderly, for whom the CKD-EPI formula has not been extensively validated. Use of the eGFR is not recommended in the following populations: Individuals with unstable creatinine concentrations, including patients and those with serious co-morbid conditions. Patients with extremes in muscle mass or diet. The data above are obtained from the National Kidney Disease Education Program (NKDEP) which additionally recommends that when the eGFR is used in patients with extremes of body mass index for purposes of drug dosing, the eGFR should be multiplied by the estimated BMI. [facility] CHEM PANEL Potassium Lvl 4.4 meq/L 3.5 - 5.1 10/15/2016 [facility] CHEM PANEL Chloride Lvl 97 meq/L 95 - 109 10/15/2016 [facility] CHEM PANEL BUN 52 mg/dL 7 - 22 10/15/2016 [facility] CHEM PANEL Sodium Lvl 136 meq/L 135 - 145 10/15/2016 [facility] CHEM PANEL Creatinine Lvl 2.70 mg/dL 0.50 - 1.40 10/15/2016 [facility] CHEM PANEL Albumin Lvl 2.5 g/dL 3.5 - 5.0 10/15/2016 [facility] CHEM PANEL Phosphorus 4.1 mg/dL 2.5 - 4.5 10/15/2016 [facility] CHEM PANEL CO2 29 meq/L 24 - 32 10/15/2016 [facility] CHEM PANEL AGAP 14.4 meq/L 10.0 - 20.0 10/15/2016 [facility] CHEM PANEL Calcium Lvl 8.1 mg/dL 8.5 - 10.5 10/15/2016 [facility] CHEM PANEL Glucose Lvl 210 mg/dL 70 - 99 10/15/2016 [facility] HEMATOLOGY MPV 9.4 fL 7.4 - 10.4 10/15/2016 [facility] [place] Platelet 248 K/CMM 133 - 450 10/15/2016 [facility] HEMATOLOGY Hgb 10.8 g/dL 12.0 - 16.0 10/15/2016 [facility] HEMATOLOGY RDW 13.6 % 11.5 - 14.5 10/15/2016 [facility] [place] MCHC 33.0 g/dL 32.0 - 36.0 10/15/2016 [facility] [place] MCH 29.3 pg 27.0 - 31.0 10/15/2016 [facility] [place] MCV 88.8 fL 80.0 - 98.0 10/15/2016 [facility] [place] Hct 32.7 % 36.0 - 48.0 10/15/2016 [facility] [place] RBC 3.69 M/CMM 4.20 - 5.40 10/15/2016 [facility] [place] WBC 5.2 K/CMM 3.7 - 10.4 10/15/2016 [facility] HEMATOLOGY Basophils 0.4 % 0.0 - 1.0 10/15/2016 [facility] HEMATOLOGY Eosinophils 0.1 % 0.0 - 4.0 10/15/2016 [facility] [place] Monocytes 12.4 % 2.0 - 12.0 10/15/2016 [facility] [place] Lymphocytes 12.8 % 20.0 - 40.0 10/15/2016 [facility] HEMATOLOGY Segs 74.3 % 45.0 - 75.0 10/15/2016 [facility] [place] Monocytes # 0.6 K/CMM 0.0 - 0.8 10/15/2016 [facility] [place] Lymphocytes # 0.7 K/CMM 1.0 - 5.5 10/15/2016 [facility] [place] Segs-Bands # 3.9 K/CMM 1.5 - 8.1 10/15/2016 [facility] TOXICOLOGY Vanco Tr TND 04:30 10/15/2016 [facility] TOXICOLOGY Vanco Tr 30.1 ug/ml 10/15/2016 [facility] Chest 1view DX Chest 1view DX Patient Name: KAREN ZUÑIGA : 1955; Age: 61 years y/o Female MR: [id number] * CHEST, portable, 1 view HISTORY: Abnormal chest sounds; COMPARISON: Yesterday. Studies of 09/01/2016, 02/03/2014 and a chest computed tomography scan of 10/08/2016 were reviewed. IMPRESSION: 1. Worsening in the appearance the chest. In addition to the previously noted lower lobe infiltrates, there has been development of bilateral upper lobe infiltrates in the right perihilar infiltrate. There is a shallow degree of pulmonary inflation. 2. Mild chronic elevation of the right hemidiaphragm. 3. The heart size is within normal limits. There is no evidence of failure. 4. The study is limited due to the patient's habitus and portable technique. SL: [id number] 10/15/2016 - - Read by: Nirmal Ortega MD Dictated Date/time: 10/15/16 08:07 Electronically Signed by: Nirmal Ortega MD 10/15/16 08:09 FINAL REPORT [facility] [place] Monocytes # 0.5 K/CMM 0.0 - 0.8 10/14/2016 [facility] HEMATOLOGY Lymphocytes 13.2 % 20.0 - 40.0 10/14/2016 [facility] HEMATOLOGY Segs 75.5 % 45.0 - 75.0 10/14/2016 [facility] HEMATOLOGY Lymphocytes # 0.6 K/CMM 1.0 - 5.5 10/14/2016 [facility] HEMATOLOGY Basophils 0.6 % 0.0 - 1.0 10/14/2016 [facility] HEMATOLOGY Segs-Bands # 3.6 K/CMM 1.5 - 8.1 10/14/2016 [facility] HEMATOLOGY Monocytes 10.6 % 2.0 - 12.0 10/14/2016 [facility] HEMATOLOGY Eosinophils 0.1 % 0.0 - 4.0 10/14/2016 [facility] HEMATOLOGY WBC 4.8 K/CMM 3.7 - 10.4 10/14/2016 [facility] HEMATOLOGY RBC 3.51 M/CMM 4.20 - 5.40 10/14/2016 [facility] HEMATOLOGY MCHC 33.0 g/dL 32.0 - 36.0 10/14/2016 [facility] HEMATOLOGY Hgb 10.4 g/dL 12.0 - 16.0 10/14/2016 [facility] HEMATOLOGY MCV 89.8 fL 80.0 - 98.0 10/14/2016 [facility] HEMATOLOGY MCH 29.6 pg 27.0 - 31.0 10/14/2016 [facility] HEMATOLOGY Hct 31.5 % 36.0 - 48.0 10/14/2016 [facility] HEMATOLOGY RDW 13.5 % 11.5 - 14.5 10/14/2016 [facility] HEMATOLOGY Platelet 214 K/CMM 133 - 450 10/14/2016 [facility] HEMATOLOGY MPV 9.1 fL 7.4 - 10.4 10/14/2016 [facility] HEMATOLOGY MPV 9.4 fL 7.4 - 10.4 10/13/2016 [facility] HEMATOLOGY MCH 29.7 pg 27.0 - 31.0 10/13/2016 [facility] HEMATOLOGY Hct 31.3 % 36.0 - 48.0 10/13/2016 [facility] HEMATOLOGY Hgb 10.4 g/dL 12.0 - 16.0 10/13/2016 [facility] HEMATOLOGY RDW 13.4 % 11.5 - 14.5 10/13/2016 [facility] HEMATOLOGY MCV 89.5 fL 80.0 - 98.0 10/13/2016 [facility] [place] MCHC 33.2 g/dL 32.0 - 36.0 10/13/2016 [facility] HEMATOLOGY Platelet 198 K/CMM 133 - 450 10/13/2016 [facility] HEMATOLOGY RBC 3.49 M/CMM 4.20 - 5.40 10/13/2016 [facility] [place] WBC 4.3 K/CMM 3.7 - 10.4 10/13/2016 [facility] TOXICOLOGY Vanco Tr 29.2 ug/ml 10/12/2016 [facility] TOXICOLOGY Vanco Tr TND 10:30 10/12/2016 [facility] Chest 1view DX Chest 1view DX Patient Name: KAREN ZUÑIGA : 1955; Age: 61 years y/o Female MR: [id number] * CHEST, portable, 1 view HISTORY: Abnormal chest sounds; COMPARISON: 09/01/2016. A study 02/03/2014 and a chest computed tomography scan of 10/08/2016 were reviewed. IMPRESSION: 1. Bilateral lower lobe infiltrates, greater on the left, consistent with pneumonia. This also mild right basilar atelectasis. The findings are similar to the recent chest computed tomography scan. There are no definite pleural effusions. 2. Mild chronic elevation of the right hemidiaphragm. 3. The heart size is within normal limits. There is no evidence of failure. 4. The study is limited due to the patient's habitus and portable technique. SL: [id number] 10/12/2016 - - Read by: Nirmal Ortega MD Dictated Date/time: 10/12/16 08:44 Electronically Signed by: Nirmal Ortega MD 10/12/16 08:46 FINAL REPORT [facility] CHEM PANEL Magnesium Lvl 2.1 mg/dL 1.8 - 2.4 10/12/2016 [facility] TOXICOLOGY Vanco Tr TND 2000 10/11/2016 [facility] TOXICOLOGY Vanco Tr 24.2 ug/ml 10/11/2016 [facility] HEMATOLOGY Basophils 0.6 % 0.0 - 1.0 10/10/2016 [facility] HEMATOLOGY Eosinophils 0.7 % 0.0 - 4.0 10/10/2016 [facility] HEMATOLOGY Hypochrom 1+ (10/10/16 4:02 AM) None Seen 10/10/2016 [facility] [place] Monocytes # 0.6 K/CMM 0.0 - 0.8 10/10/2016 [facility] [place] Lymphocytes # 0.6 K/CMM 1.0 - 5.5 10/10/2016 [facility] [place] Segs-Bands # 1.8 K/CMM 1.5 - 8.1 10/10/2016 [facility] [place] RBC Morph Normal (10/10/16 4:02 AM) 10/10/2016 [facility] [place] Monocytes 18.3 % 2.0 - 12.0 10/10/2016 [facility] [place] Lymphocytes 21.3 % 20.0 - 40.0 10/10/2016 [facility] [place] Segs 59.1 % 45.0 - 75.0 10/10/2016 [facility] [place] Plt Morph Normal (10/10/16 4:02 AM) 10/10/2016 [facility] Chest Pulmonary Embolism CTA Chest Pulmonary Embolism CTA CTA PULMONARY ARTERIES AND ROUTINE CT CHEST HISTORY: Dyspnea on exertion; shortness of breath TECHNIQUE: Thin collimation axial images of the pulmonary arteries and routine CT chest with IV contrast. Coronal and sagittal reformatted images were utilized. 3-D reconstructions were obtained. DLP [id number], 75 mL IV Omnipaque COMPARISON: Chest radiography dated 09/01/[address] thorax dated 05/22/2009 FINDINGS: No pulmonary embolism is evident. Pulmonary arteries are mildly dilated compatible pulmonary arterial hypertension. Mild calcification of thoracic aorta. No acute aortic abnormality. No pathologic mediastinal adenopathy by CT size criteria. Heart size normal. No pericardial effusion. Extensive patchy consolidating pneumonia throughout the left lower lobe. Much milder patchy pneumonia in the left upper lobe and right lower lobe. Trace left parapneumonic effusion. Mild bilateral basal atelectasis. Visualized portion of the upper abdominal contents is unremarkable. No acute osseous abnormality. IMPRESSION: 1. No pulmonary embolism. 2. Moderate multilobar pneumonia, predominantly involving the left lower lobe. 3. Trace left parapneumonic effusion. 4. Mild dilation of the pulmonary arteries compatible pulmonary arterial hypertension. FELIPE: AGAPITO 10/08/2016 - - Read by: Joshua Nolan MD Dictated Date/time: 10/08/16 18:29 Electronically Signed by: Joshua Nolan MD 10/08/16 18:35 FINAL REPORT [facility] CHEM PANEL Magnesium Lvl 1.8 mg/dL 1.8 - 2.4 10/07/2016 [facility] HEMATOLOGY Basophils # 0.3 K/CMM 0.0 - 0.2 10/05/2016 [facility] HEMATOLOGY Plt Morph Normal (10/05/16 3:51 AM) 10/05/2016 [facility] HEMATOLOGY Eosinophils # 0.2 K/CMM 0.0 - 0.5 10/05/2016 [facility] HEMATOLOGY RBC Morph Normal (10/05/16 3:51 AM) 10/05/2016 [facility] Retroperitoneal Complete US Retroperitoneal Complete US Study: Retroperitoneal Complete US Age: 61 years y/o Female Clinical Indication: Flank Pain; Comparison: None TECHNIQUE: Multiple longitudinal and transverse real time sonographic images of the kidneys and urinary bladder are obtained. FINDINGS: KIDNEY: The right kidney measures 13.1 x 6.0 x 6.4 cm. The left kidney measures 13.2 x 7.9 x 5.9 cm. The kidneys are normal in size, shape, contour, and position. Renal parenchymal echogenicity is within normal limits. There are a few foci of increased echogenicity in the left kidney which produces some acoustical shadowing. These may represent small calculi/medullary nephrocalcinosis. There is no hydronephrosis or abnormal perinephric collections. BLADDER: Scanning through the pelvis reveals the bladder to be partially distended with anechoic urine. AORTA AND IVC: Not well seen on this exam. ASCITES: No ascites noted. IMPRESSION: 1. Scattered left renal calcifications. 2. Otherwise negative retroperitoneal ultrasound. SL: [id number] 10/04/2016 - - Read by: Angelo Schwab MD Dictated Date/time: 10/04/16 17:34 Electronically Signed by: Angelo Schwab MD 10/04/16 17:36 FINAL REPORT [facility] CHEM PANEL Bili Total 0.6 mg/dL 0.2 - 1.3 10/02/2016 [facility] CHEM PANEL ALT 88 unit/L 0 - 65 10/02/2016 [facility] CHEM PANEL Alk Phos 213 unit/L 39 - 136 10/02/2016 [facility] CHEM PANEL AST 191 unit/L 0 - 37 10/02/2016 [facility] CHEM PANEL Total Protein 6.5 g/dL 6.4 - 8.4 10/02/2016 [facility] CHEM PANEL B/C Ratio 25 6 - 25 10/02/2016 [facility] CHEM PANEL A/G Ratio 0.6 0.7 - 1.6 10/02/2016 [facility] CHEM PANEL Globulin 4.0 g/dL 2.7 - 4.2 10/02/2016 [facility] CHEM PANEL Magnesium Lvl 2.2 mg/dL 1.8 - 2.4 10/02/2016 [facility] HEMATOLOGY Basophils # 0.1 K/CMM 0.0 - 0.2 10/02/2016 [facility] SPECIAL CHEMISTRY Hgb A1C 13.3 % <=5.6 % 10/02/2016 [facility] CHEM PANEL Lactic Acid Lvl 1.0 mMol/L 0.5 - 2.2 10/01/2016 [facility] URINE AND STOOL UA Urobilinogen <=1.0 mg/dL 0.1 - 1.0 10/01/2016 [facility] URINE AND STOOL UA [place] Yeast Many /HPF None Seen /HPF 10/01/2016 [facility] URINE AND STOOL UA Hyal Cast 2 /LPF 0 - 2 10/01/2016 [facility] URINE AND STOOL UA Leuk Est Moderate *ABN* (10/01/16 2:28 PM) Negative 10/01/2016 [facility] URINE AND STOOL UA Bili Negative *NA* (10/01/16 2:28 PM) Negative 10/01/2016 [facility] URINE AND STOOL UA Ketones 20 mg/dL Negative mg/dL 10/01/2016 [facility] URINE AND STOOL UA Blood Small *ABN* (10/01/16 2:28 PM) Negative 10/01/2016 [facility] URINE AND STOOL UA Sq Epi Few /LPF Few /LPF 10/01/2016 [facility] URINE AND STOOL UA Nitrite Negative (10/01/16 2:28 PM) Negative 10/01/2016 [facility] URINE AND STOOL UA WBC 15 /HPF 0 - 5 10/01/2016 [facility] URINE AND STOOL UA RBC 31 /HPF 0 - 2 10/01/2016 [facility] URINE AND STOOL UA Bacteria Many /HPF None Seen /HPF 10/01/2016 [facility] URINE AND STOOL UA Mucus Few /LPF None Seen /LPF 10/01/2016 [facility] URINE AND STOOL UA Glucose 500 mg/dL Negative mg/dL 10/01/2016 [facility] URINE AND STOOL UA Protein 100 mg/dL Negative mg/dL 10/01/2016 [facility] URINE AND STOOL UA Turbidity Marked *ABN* (10/01/16 2:28 PM) Clear 10/01/2016 [facility] URINE AND STOOL UA Color Yellow *NA* (10/01/16 2:28 PM) Yellow 10/01/2016 [facility] URINE AND STOOL UA pH 5.0 5.0 - 8.0 10/01/2016 [facility] URINE AND STOOL UA Spec Grav 1.026 <=1.030 10/01/2016 [facility] CHEM PANEL Total Protein 8.1 g/dL 6.4 - 8.4 10/01/2016 [facility] CHEM PANEL Bili Total 0.4 mg/dL 0.2 - 1.3 10/01/2016 [facility] CHEM PANEL Alk Phos 109 unit/L 39 - 136 10/01/2016 [facility] CHEM PANEL ALT 23 unit/L 0 - 65 10/01/2016 [facility] CHEM PANEL AST 20 unit/L 0 - 37 10/01/2016 [facility] CHEM PANEL Globulin 5.2 g/dL 2.7 - 4.2 10/01/2016 [facility] CHEM PANEL A/G Ratio 0.6 0.7 - 1.6 10/01/2016 [facility] CHEM PANEL B/C Ratio 18 6 - 25 10/01/2016 [facility] CHEM PANEL Amylase Lvl 24 unit/L 25 - 115 10/01/2016 [facility] CHEM PANEL Lipase Lvl 171 unit/L 73 - 393 10/01/2016 [facility] HEMATOLOGY Eosinophils # 0.1 K/CMM 0.0 - 0.5 10/01/2016 [facility] HEMATOLOGY Basophils # 0.1 K/CMM 0.0 - 0.2 10/01/2016 [facility] Renal Stone CT Renal Stone CT Patient Name: KAREN ZUÑIGA : 1955; Age: 61 years y/o Female MR: [id number] Study: Renal Stone CT 10/01/2016 3:25 PM [facility] Ordering Physician: Clinical Indication: Abdominal pain, acute; L flank/LLQ pain Comparison: 05/01/2016 TECHNIQUE: Noncontrasted helical imaging was performed from the kidneys through the symphysis as a renal stone protocol. Multiplanar reformations are available. CT Radiation Dose: TCE=[id number] mGy-cm FINDINGS: This examination is limited for the evaluation of solid organs and vascular structures due to withheld intravenous contrast -- the standard for urinary calculus assessment CT. KIDNEYS: No urinary calculi, hydronephrosis or perinephric stranding. The renal contours are normal. LOWER CHEST: The lung bases are clear. SOLID ORGANS: The visualized liver, spleen, pancreas, and adrenal glands are normal. The gallbladder is absent. BOWEL: No acute bowel pathology. Severely no evidence for bowel obstruction, colitis or diverticulitis. PERITONEUM: No free intraperitoneal fluid or air. RETROPERITONEUM: No adenopathy. Aorta is normal. PELVIS: No pelvic mass. Prior hysterectomy. The urinary bladder is normal. MUSCULOSKELETAL: The skeleton is intact. Chronic degenerative spondylosis at L5-S1. IMPRESSION: No acute finding. SL: [id number] 10/01/2016 - - Read by: Brannon Leone MD Dictated Date/time: 10/01/16 16:20 Electronically Signed by: Brannon Leone MD 10/01/16 16:23 FINAL REPORT [facility] URINE AND STOOL UA RBC 3 /HPF 0 - 2 09/01/2016 [facility] URINE AND STOOL UA Bacteria Occasional /HPF None Seen /HPF 09/01/2016 [facility] URINE AND STOOL UA Sq Epi Occasional /LPF Few /LPF 09/01/2016 [facility] URINE AND STOOL UA WBC 6 /HPF 0 - 5 09/01/2016 [facility] URINE AND STOOL UA Leuk Est Trace *ABN* (09/01/16 5:21 PM) Negative 09/01/2016 [facility] URINE AND STOOL UA Urobilinogen <=1.0 mg/dL 0.1 - 1.0 09/01/2016 [facility] URINE AND STOOL UA Color Ltyellow 09/01/2016 [facility] URINE AND STOOL UA Turbidity Clear (09/01/16 5:21 PM) Clear 09/01/2016 [facility] URINE AND STOOL UA Spec Grav 1.030 <=1.030 09/01/2016 [facility] URINE AND STOOL UA Nitrite Negative (09/01/16 5:21 PM) Negative 09/01/2016 [facility] URINE AND STOOL UA Blood Small *ABN* (09/01/16 5:21 PM) Negative 09/01/2016 [facility] URINE AND STOOL UA Ketones Negative mg/dL Negative mg/dL 09/01/2016 [facility] URINE AND STOOL UA Bili Negative *NA* (09/01/16 5:21 PM) Negative 09/01/2016 [facility] URINE AND STOOL UA Protein 100 mg/dL Negative mg/dL 09/01/2016 [facility] URINE AND STOOL UA Glucose 500 mg/dL Negative mg/dL 09/01/2016 [facility] URINE AND STOOL UA pH 5.0 5.0 - 8.0 09/01/2016 [facility] CARDIAC ENZYMES Total CK 68 unit/L 12 - 191 09/01/2016 [facility] CARDIAC ENZYMES Troponin-I null 0.00 - 0.40 09/01/2016 [facility] CARDIAC ENZYMES CK MB 2.0 ng/mL 0.5 - 3.6 09/01/2016 [facility] CARDIAC ENZYMES CK MB Index 2.9 0.0 - 2.5 09/01/2016 [facility] CHEM PANEL eGFR 54 mL/min/1.73m2 09/01/2016 Result Comment: The eGFR is calculated using the CKD-EPI formula. In most young, healthy individuals the eGFR will be >90 mL/min/1.73m2. The eGFR declines with age. An eGFR of 60-89 may be normal in some populations, particularly the elderly, for whom the CKD-EPI formula has not been extensively validated. Use of the eGFR is not recommended in the following populations: Individuals with unstable creatinine concentrations, including patients and those with serious co-morbid conditions. Patients with extremes in muscle mass or diet. The data above are obtained from the National Kidney Disease Education Program (NKDEP) which additionally recommends that when the eGFR is used in patients with extremes of body mass index for purposes of drug dosing, the eGFR should be multiplied by the estimated BMI. [facility] CHEM PANEL AST 28 unit/L 0 - 37 09/01/2016 [facility] CHEM PANEL Alk Phos 140 unit/L 39 - 136 09/01/2016 [facility] CHEM PANEL Bili Total 0.1 mg/dL 0.2 - 1.3 09/01/2016 [facility] CHEM PANEL ALT 27 unit/L 0 - 65 09/01/2016 [facility] CHEM PANEL A/G Ratio 0.6 0.7 - 1.6 09/01/2016 [facility] CHEM PANEL Albumin Lvl 2.8 g/dL 3.5 - 5.0 09/01/2016 [facility] CHEM PANEL Globulin 4.8 g/dL 2.7 - 4.2 09/01/2016 [facility] CHEM PANEL Total Protein 7.6 g/dL 6.4 - 8.4 09/01/2016 [facility] CHEM PANEL B/C Ratio 15 6 - 25 09/01/2016 [facility] CHEM PANEL Calcium Lvl 8.2 mg/dL 8.5 - 10.5 09/01/2016 [facility] CHEM PANEL AGAP 14.3 meq/L 10.0 - 20.0 09/01/2016 [facility] CHEM PANEL Chloride Lvl 96 meq/L 95 - 109 09/01/2016 [facility] CHEM PANEL Potassium Lvl 4.3 meq/L 3.5 - 5.1 09/01/2016 [facility] CHEM PANEL Creatinine Lvl 1.10 mg/dL 0.50 - 1.40 09/01/2016 [facility] CHEM PANEL Sodium Lvl 130 meq/L 135 - 145 09/01/2016 [facility] CHEM PANEL CO2 24 meq/L 24 - 32 09/01/2016 [facility] CHEM PANEL Glucose Lvl 550 mg/dL 70 - 99 09/01/2016 Result Comment: Critical Result(s) called to meg at 09/01/2016 17:47 by_sol. Read back OK. [facility] CHEM PANEL BUN 17 mg/dL 7 - 22 09/01/2016 [facility] HEMATOLOGY PTT 24.7 s 22.9 - 35.8 09/01/2016 [facility] HEMATOLOGY Platelet 182 K/CMM 133 - 450 09/01/2016 [facility] HEMATOLOGY MPV 10.4 fL 7.4 - 10.4 09/01/2016 [facility] HEMATOLOGY MCHC 33.5 g/dL 32.0 - 36.0 09/01/2016 [facility] HEMATOLOGY RDW 13.6 % 11.5 - 14.5 09/01/2016 [facility] HEMATOLOGY MCV 89.3 fL 80.0 - 98.0 09/01/2016 [facility] HEMATOLOGY MCH 29.9 pg 27.0 - 31.0 09/01/2016 [facility] HEMATOLOGY WBC 5.3 K/CMM 3.7 - 10.4 09/01/2016 [facility] HEMATOLOGY RBC 4.63 M/CMM 4.20 - 5.40 09/01/2016 [facility] HEMATOLOGY Hgb 13.8 g/dL 12.0 - 16.0 09/01/2016 [facility] HEMATOLOGY Hct 41.3 % 36.0 - 48.0 09/01/2016 [facility] HEMATOLOGY PT 12.6 s 12.0 - 14.7 09/01/2016 [facility] HEMATOLOGY INR 0.92 0.85 - 1.17 09/01/2016 [facility] HEMATOLOGY Lymphocytes # 1.2 K/CMM 1.0 - 5.5 09/01/2016 [facility] HEMATOLOGY Segs-Bands # 3.4 K/CMM 1.5 - 8.1 09/01/2016 [facility] HEMATOLOGY Eosinophils # 0.1 K/CMM 0.0 - 0.5 09/01/2016 [facility] HEMATOLOGY Monocytes # 0.5 K/CMM 0.0 - 0.8 09/01/2016 [facility] HEMATOLOGY Basophils # 0.1 K/CMM 0.0 - 0.2 09/01/2016 [facility] [place] Lymphocytes 23.2 % 20.0 - 40.0 09/01/2016 [facility] HEMATOLOGY Segs 63.8 % 45.0 - 75.0 09/01/2016 [facility] [place] Eosinophils 1.5 % 0.0 - 4.0 09/01/2016 [facility] [place] Monocytes 10.3 % 2.0 - 12.0 09/01/2016 [facility] [place] Basophils 1.2 % 0.0 - 1.0 09/01/2016 [facility] Brain wo contrast CT Brain wo contrast CT Study: Brain wo contrast CT 09/01/2016 1:48 PM CDT Patient Name: KAREN ZUÑIGA MR: [id number] : 1955; Age: 61 years y/o Female Ordering Physician: Philip Mcdonald Clinical Indication: Syncope Comparison: 02/16/2016. TECHNIQUE: CT images were obtained from the foramen magnum to the vertex without the use of intravenous contrast on a multidetector CT. Coronal and sagittal reformatted images were prepared. FINDINGS: BRAIN PARENCHYMA: The brain volume and ventricle size are appropriate for age. No evidence of acute intracranial hemorrhage, mass lesion, mass effect, midline shift, or extra-axial fluid collection. VENTRICLES: The lateral ventricles, third and fourth ventricles, and basilar cisterns are normal. PARANASAL SINUSES AND MASTOIDS: The visualized portions of the paranasal sinuses and mastoids are clear. ORBITS AND SOFT TISSUES:The visualized portions of the orbits are normal. SKULL: No acute fracture or suspicious osseous lesion. Incidental hyperostosis frontalis. IMPRESSION: 1. Normal brain without acute intracranial abnormality. SL: [id number] 09/01/2016 - - Read by: Addy Parsons MD Dictated Date/time: 09/01/16 15:26 Electronically Signed by: Addy Parsons MD 09/01/16 15:29 FINAL REPORT [facility] Spine cervical wo contrast CT Spine cervical wo contrast CT Study: CT CERVICAL SPINE Clinical Indication: Neck pain post fall last week; Comparison: None Technique: Axial images with sagittal and coronal reconstructions were obtained without contrast. CT Radiation Dose: LLS=3057.08 mGy-cm. FINDINGS: Vertebral alignment is normal. No fracture is identified. Intervertebral disc spaces are maintained. No hypertrophic changes are noted. There is no spinal or neural foraminal stenosis. Prevertebral soft tissues are normal. Small thyroid nodules are noted. IMPRESSION: 1. No significant cervical abnormality. 2. Small thyroid nodules. SL: DESMOND 09/01/2016 - - Read by: Andrew Sesay MD Dictated Date/time: 09/01/16 15:27 Electronically Signed by: Andrew Sesay MD 09/01/16 15:35 FINAL REPORT [facility] Pelvis AP DX Pelvis AP DX Pelvis one view: There are technical limitations due to body habitus. There is no visible fracture or dislocation. There are no other significant osseous or soft tissue abnormalities. IMPRESSION: No acute radiographic abnormalities of the pelvis. [id number] 09/01/2016 - - Read by: Filemon Mayorga MD Dictated Date/time: 09/01/16 14:24 Electronically Signed by: Filemon Mayorga MD 09/01/16 14:24 FINAL REPORT [facility] Chest 2 views DX Chest 2 views DX Clinical Indication: 61 years Female with fall on Friday Comparison: Chest x-ray 01/13/2015 FINDINGS: The PA and lateral chest radiographs shows normal lung volumes. No interstitial or airspace opacities. No pleural effusion. No pneumothorax. The cardiac silhouette is normal. The pulmonary vasculature is normal. The trachea is midline. There are no clinically significant osseous abnormalities noted. IMPRESSION: No chest radiographic evidence of acute cardiopulmonary disease. No change since prior chest x-ray. SL: J CARLOS 09/01/2016 - - Read by: Filemon Patel MD Dictated Date/time: 09/01/16 14:24 Electronically Signed by: Filemon Patel MD 09/01/16 14:26 FINAL REPORT [facility] Spine lumbar 2 or 3 views DX Spine lumbar 2 or 3 views DX Lumbar spine 2 views: There technical limitations due to body habitus. There is mild to moderate scoliosis to the right in the upper lumbar region. There is no definite fracture. There is narrowing of all the disc spaces with mild marginal spurring. Moderate sized right lateral osteophyte is seen at L4-L5. The SI joints are unremarkable. IMPRESSION: Limited exam. There are scoliosis and degenerative changes without acute radiographic abnormalities in the lumbar spine. [id number] 09/01/2016 - - Read by: Filemon Mayorga MD Dictated Date/time: 09/01/16 14:22 Electronically Signed by: Filemon Mayorga MD 09/01/16 14:23 FINAL REPORT [facility] URINE AND STOOL UA pH 6.0 5.0 - 8.0 05/02/2016 [facility] URINE [facility] STOOL UA Protein 100 mg/dL Negative mg/dL 05/02/2016 [facility] URINE AND STOOL UA Glucose 500 mg/dL Negative mg/dL 05/02/2016 [facility] URINE AND STOOL UA Ketones 20 mg/dL Negative mg/dL 05/02/2016 [facility] URINE [facility] STOOL UA Sq Epi Moderate /LPF Few /LPF 05/02/2016 [facility] URINE AND STOOL UA WBC 169 /HPF 0 - 5 05/02/2016 [facility] URINE [facility] STOOL UA Nitrite Negative (05/01/16 11:45 PM) Negative 05/02/2016 [facility] URINE AND STOOL UA Leuk Est Large *ABN* (05/01/16 11:45 PM) Negative 05/02/2016 [facility] URINE AND STOOL UA Bili Negative *NA* (05/01/16 11:45 PM) Negative 05/02/2016 [facility] URINE AND STOOL UA Blood Moderate *ABN* (05/01/16 11:45 PM) Negative 05/02/2016 [facility] URINE AND STOOL UA Urobilinogen <=1.0 mg/dL 0.1 - 1.0 05/02/2016 [facility] URINE AND STOOL UA Bacteria Occasional /HPF None Seen /HPF 05/02/2016 [facility] URINE AND STOOL UA RBC 9 /HPF 0 - 2 05/02/2016 [facility] URINE AND STOOL UA Color Yellow *NA* (05/01/16 11:45 PM) Yellow 05/02/2016 [facility] URINE AND STOOL UA Turbidity Marked *ABN* (05/01/16 11:45 PM) Clear 05/02/2016 [facility] URINE AND STOOL UA Spec Grav 1.032 <=1.030 05/02/2016 [facility] CHEM PANEL Total Protein 8.3 g/dL 6.4 - 8.4 05/02/2016 [facility] CHEM PANEL Albumin Lvl 3.0 g/dL 3.5 - 5.0 05/02/2016 [facility] CHEM PANEL AST 23 unit/L 0 - 37 05/02/2016 [facility] CHEM PANEL CO2 29 meq/L 24 - 32 05/02/2016 [facility] CHEM PANEL ALT 28 unit/L 0 - 65 05/02/2016 [facility] CHEM PANEL Calcium Lvl 9.0 mg/dL 8.5 - 10.5 05/02/2016 [facility] CHEM PANEL Bili Total 0.6 mg/dL 0.2 - 1.3 05/02/2016 [facility] CHEM PANEL Alk Phos 146 unit/L 39 - 136 05/02/2016 [facility] CHEM PANEL Sodium Lvl 135 meq/L 135 - 145 05/02/2016 [facility] CHEM PANEL Chloride Lvl 97 meq/L 95 - 109 05/02/2016 [facility] CHEM PANEL Potassium Lvl 4.6 meq/L 3.5 - 5.1 05/02/2016 [facility] CHEM PANEL eGFR 71 mL/min/1.73m2 05/02/2016 Result Comment: The eGFR is calculated using the CKD-EPI formula. In most young, healthy individuals the eGFR will be >90 mL/min/1.73m2. The eGFR declines with age. An eGFR of 60-89 may be normal in some populations, particularly the elderly, for whom the CKD-EPI formula has not been extensively validated. Use of the eGFR is not recommended in the following populations: Individuals with unstable creatinine concentrations, including patients and those with serious co-morbid conditions. Patients with extremes in muscle mass or diet. The data above are obtained from the National Kidney Disease Education Program (NKDEP) which additionally recommends that when the eGFR is used in patients with extremes of body mass index for purposes of drug dosing, the eGFR should be multiplied by the estimated BMI. [facility] CHEM PANEL Glucose Lvl 387 mg/dL 70 - 99 05/02/2016 [facility] CHEM PANEL BUN 21 mg/dL 7 - 22 05/02/2016 [facility] CHEM PANEL Creatinine Lvl 0.87 mg/dL 0.50 - 1.40 05/02/2016 [facility] CHEM PANEL AGAP 13.6 meq/L 10.0 - 20.0 05/02/2016 [facility] CHEM PANEL Globulin 5.3 g/dL 2.0 - 4.0 05/02/2016 [facility] CHEM PANEL B/C Ratio 24 6 - 25 05/02/2016 [facility] CHEM PANEL A/G Ratio 0.6 0.7 - 1.6 05/02/2016 [facility] HEMATOLOGY Basophils # 0.1 K/CMM 0.0 - 0.2 05/02/2016 [facility] HEMATOLOGY Eosinophils # 0.2 K/CMM 0.0 - 0.5 05/02/2016 [facility] HEMATOLOGY Lymphocytes # 1.9 K/CMM 1.0 - 5.5 05/02/2016 [facility] HEMATOLOGY Monocytes # 0.7 K/CMM 0.0 - 0.8 05/02/2016 [facility] HEMATOLOGY Eosinophils 2.7 % 0.0 - 4.0 05/02/2016 [facility] HEMATOLOGY Basophils 0.8 % 0.0 - 1.0 05/02/2016 [facility] [place] Segs-Bands # 3.9 K/CMM 1.5 - 8.1 05/02/2016 [facility] [place] Monocytes 11.1 % 2.0 - 12.0 05/02/2016 [facility] [place] Lymphocytes 27.6 % 20.0 - 40.0 05/02/2016 [facility] [place] Segs 57.8 % 45.0 - 75.0 05/02/2016 [facility] [place] Platelet 206 K/CMM 133 - 450 05/02/2016 [facility] [place] RDW 14.0 % 11.5 - 14.5 05/02/2016 [facility] [place] MCHC 32.2 g/dL 32.0 - 36.0 05/02/2016 [facility] [place] MCH 28.9 pg 27.0 - 31.0 05/02/2016 [facility] [place] MCV 89.9 fL 80.0 - 98.0 05/02/2016 [facility] [place] Hct 41.9 % 36.0 - 48.0 05/02/2016 [facility] [place] RBC 4.66 M/CMM 4.20 - 5.40 05/02/2016 [facility] [place] Hgb 13.5 g/dL 12.0 - 16.0 05/02/2016 [facility] [place] WBC 6.7 K/CMM 3.7 - 10.4 05/02/2016 [facility] [place] MPV 10.0 fL 7.4 - 10.4 05/02/2016 [facility] Renal Stone CT Renal Stone CT CT RENAL STONE WITHOUT CONTRAST INDICATION: Bilateral flank pain, lower abdominal pain, dysuria, evaluate for renal stones COMPARISON: CT abdomen/pelvis 02/15/2016 DISCUSSION: URINARY TRACT: No urinary tract calculi are identified. There is no hydronephrosis. The kidneys and bladder are grossly normal in morphology. ABDOMEN/PELVIS: The gallbladder is not seen, presumed absent. There is advanced fatty atrophy of the pancreas. The liver, spleen, and adrenal glands are grossly normal in morphology. The stomach and bowel loops, including the appendix, are grossly unremarkable. No free fluid or abnormal fluid collections are seen. The uterus and ovaries are not identified, presumed absent. The abdominal aorta is normal in caliber. BONES: No acute bony abnormalities are seen. IMPRESSION: No evidence of urolithiasis. No acute abdominal or pelvic abnormalities are visualized. SL:16 05/01/2016 - - Read by: Cristóbal Miles MD Dictated Date/time: 05/01/16 21:57 Electronically Signed by: Cristóbal Miles MD 05/01/16 22:01 FINAL REPORT [facility] CHEM PANEL eGFR 85 mL/min/1.73m2 02/21/2016 Result Comment: The eGFR is calculated using the CKD-EPI formula. In most young, healthy individuals the eGFR will be >90 mL/min/1.73m2. The eGFR declines with age. An eGFR of 60-89 may be normal in some populations, particularly the elderly, for whom the CKD-EPI formula has not been extensively validated. Use of the eGFR is not recommended in the following populations: Individuals with unstable creatinine concentrations, including patients and those with serious co-morbid conditions. Patients with extremes in muscle mass or diet. The data above are obtained from the National Kidney Disease Education Program (NKDEP) which additionally recommends that when the eGFR is used in patients with extremes of body mass index for purposes of drug dosing, the eGFR should be multiplied by the estimated BMI. [facility] CHEM PANEL Sodium Lvl 136 meq/L 135 - 145 02/21/2016 [facility] CHEM PANEL CO2 26 meq/L 24 - 32 02/21/2016 [facility] CHEM PANEL Calcium Lvl 8.0 mg/dL 8.5 - 10.5 02/21/2016 [facility] CHEM PANEL Potassium Lvl 3.7 meq/L 3.5 - 5.1 02/21/2016 [facility] CHEM PANEL Chloride Lvl 103 meq/L 95 - 109 02/21/2016 [facility] CHEM PANEL Creatinine Lvl 0.76 mg/dL 0.50 - 1.40 02/21/2016 [facility] CHEM PANEL Glucose Lvl 341 mg/dL 70 - 99 02/21/2016 [facility] CHEM PANEL BUN 19 mg/dL 7 - 22 02/21/2016 [facility] CHEM PANEL AGAP 10.7 meq/L 10.0 - 20.0 02/21/2016 [facility] HEMATOLOGY Platelet 159 K/CMM 133 - 450 02/21/2016 [facility] [place] MCHC 32.2 g/dL 32.0 - 36.0 02/21/2016 [facility] HEMATOLOGY MPV 10.5 fL 7.4 - 10.4 02/21/2016 [facility] [place] RDW 13.5 % 11.5 - 14.5 02/21/2016 [facility] [place] Hct 36.7 % 36.0 - 48.0 02/21/2016 [facility] [place] MCH 29.4 pg 27.0 - 31.0 02/21/2016 [facility] [place] MCV 91.4 fL 80.0 - 98.0 02/21/2016 [facility] [place] RBC 4.01 M/CMM 4.20 - 5.40 02/21/2016 [facility] [place] Hgb 11.8 g/dL 12.0 - 16.0 02/21/2016 [facility] [place] WBC 4.4 K/CMM 3.7 - 10.4 02/21/2016 [facility] HEMATOLOGY Eosinophils # 0.2 K/CMM 0.0 - 0.5 02/21/2016 [facility] HEMATOLOGY Lymphocytes # 1.5 K/CMM 1.0 - 5.5 02/21/2016 [facility] [place] Monocytes # 0.6 K/CMM 0.0 - 0.8 02/21/2016 [facility] [place] Monocytes 12.7 % 2.0 - 12.0 02/21/2016 [facility] HEMATOLOGY Eosinophils 4.3 % 0.0 - 4.0 02/21/2016 [facility] HEMATOLOGY Segs-Bands # 2.2 K/CMM 1.5 - 8.1 02/21/2016 [facility] HEMATOLOGY Basophils 0.9 % 0.0 - 1.0 02/21/2016 [facility] HEMATOLOGY Segs 49.2 % 45.0 - 75.0 02/21/2016 [facility] HEMATOLOGY Lymphocytes 32.9 % 20.0 - 40.0 02/21/2016 [facility] Small bowel series DX Small bowel series DX SMALL BOWEL FOLLOW-THROUGH HISTORY: Abdominal pain, chronic; COMPARISON: CT abdomen/pelvis dated 02/15/2016 TECHNIQUE: Small bowel follow-through exam was performed using oral barium. Bacon De Rinder KUB was obtained before the administration of contrast and serial overhead images were obtained after administration of oral barium. Fluoroscopy was performed and spot images were obtained. FINDINGS: Small bowel loops are normal in caliber and distribution. Normal mucosal folds. No stricture or mass identified. Spot compression views of the terminal ileum are normal. Normal transit time of 30-90 minutes was observed. IMPRESSION: Unremarkable small bowel follow-through. : [id number] 02/19/2016 - - Read by: Joshua Nolan MD Dictated Date/time: 02/19/16 13:53 Electronically Signed by: Joshua Nolan MD 02/19/16 13:54 FINAL REPORT [facility] Spine cervical wo contrast MRI Spine cervical wo contrast MRI MRI CERVICAL SPINE WITHOUT CONTRAST HISTORY: Weakness; right upper extremity weakness, headache COMPARISON: None available. TECHNIQUE: Multiplanar T1, T2, fluid-sensitive weighted MRI of the cervical spine without contrast is performed on the 1.5 Miguelina magnet. FINDINGS: Exam detail moderately limited by patient motion artifact on all sequences. No fracture is seen. Vertebral body heights are maintained. No bone marrow edema. No aggressive osseous lesion. No discitis/osteomyelitis. No spondylolisthesis. Mild multilevel cervical canal stenosis primarily related to ligamentum flavum thickening with minimal posterior disc bulging. The cervical spinal cord remains normal in size, shape, and signal intensity throughout its course. DISC SPACES: C2/C3: No canal stenosis or neural foraminal narrowing. C3/C4: No canal stenosis or neural foraminal narrowing. C4/C5: Mild canal stenosis. No neural foraminal narrowing. C5/C6: Mild canal stenosis. No neural foraminal narrowing. C6/C7: No canal stenosis or neural foraminal narrowing. C7/T1: No canal stenosis or neural foraminal narrowing. The visualized soft tissue structures of the neck are grossly normal. IMPRESSION: 1. Exam detail moderately limited by patient motion artifact on all sequences. 2. Mild canal stenosis at C4/C5 and C5/C6, primarily related to ligamentum flavum hypertrophy. SL: [id number] 02/17/2016 - - Read by: Joshua Nolan MD Dictated Date/time: 02/18/16 10:08 Electronically Signed by: Joshua Nolan MD 02/18/16 10:13 FINAL REPORT [facility] Brain wo contrast MRI Brain wo contrast MRI Study: Brain wo contrast MRI Age: 60 years y/o Female Clinical Indication: Hemiparesis; Comparison: 05/17/2009 TECHNIQUE: MRI of the brain is performed without gadolinium contrast with axial T1, T2, FLAIR and diffusion weighted imaging along with sagittal T2, and coronal T1 weighted imaging. FINDINGS: The patient has prominent hyperostosis of the inner table of the calvarium as on the previous examination. There is also mild motion artifact. BRAIN PARENCHYMA: There is minimal generalized cortical atrophy. No significant nonspecific periventricular white matter foci of increased T2 and FLAIR signal are seen,. There is no mass effect or midline shift. There are no extra-axial fluid collection, or intraparenchymal hemorrhage. The corpus callosum appears normal. There is no diffusion weighted imaging or ADC map abnormality to suggest acute/subacute ischemia. . There is no magnetic susceptibility to suggest recent or remote intracranial hemorrhage. CEREBELLOPONTINE REGIONS AND SKULL BASE: The hyperostotic mass previously described superior and posterior to the left internal auditory canal appears slightly less prominent on today's examination than on previous studies though the difference is minimal and may be due to slice selection. Certainly, there is no evidence of progression of disease. The cerebellopontine angles appear otherwise unremarkable. The skull base, craniocervical junction, and brainstem region are normal. The optic chiasm is normal. The sellar and pineal regions are unremarkable. VENTRICLES: The ventricles are normal in size and configuration. The basilar cisterns are normal. VESSELS: The venous sinuses are grossly unremarkable. The expected intracranial flow voids are present. ORBITS, VISUALIZED PARANASAL SINUSES AND MASTOIDS: The visualized orbits and paranasal sinuses are unremarkable. The mastoid air cells are clear. IMPRESSION: 1. No acute intracranial abnormality without acute stroke, hemorrhage or mass. 2. Generalized mild brain parenchymal atrophy. 3. Hyperostosis of the frontal bone similar to previous exam. 4. No progression of hyperostotic changes near the left internal auditory canal when compared to previous examination of 05/17/2009. SL: [id number] 02/17/2016 - - Read by: Angelo Schwab MD Dictated Date/time: 02/17/16 23:25 Electronically Signed by: Angelo Schwab MD 02/17/16 23:29 FINAL REPORT [facility] Stomach emptying NM Stomach emptying NM Clinical Indication: Abdominal Pain; Comparison: None TECHNIQUE: A gastric emptying study is performed using 1.1 mCi of technetium 99m sulfur colloid mixed with scrambled egg. FINDINGS: There is delayed gastric emptying noted. The T-1/2 is 182 minutes (normal for solids < 90 minutes). There is slow progression of the radiotracer into bowel. PERCENT RETAINED: 32 minutes=95.5 % 64 minutes=86.8 % 93 minutes=72.3 % 118 minutes=68.8 % 186 minutes=49.6 % 235 minutes=47.6 % IMPRESSION: 1. Findings consistent with delayed gastric emptying. STANDARDS: Rapid emptying : <70% at 30 min <30% at 60 min Delayed emptying: >90% at 60 min >60% at 120 min >30% at 180 min >10 % at 240 min Reference: Consensus Recommendations for Gastric Emptying Scintigraphy: A Joint Report of the [place] Neurogastroenterology and Motility Society and the Society of Nuclear Medicine, [place] Journal of Gastroenterology, (2008; 103:753-763) SL: [id number] 02/17/2016 - - Read by: Angelo Schwab MD Dictated Date/time: 02/17/16 20:55 Electronically Signed by: Angelo Schwab MD 02/17/16 21:00 FINAL REPORT [facility] LIPIDS VLDL 29 02/17/2016 [facility] LDL (Calculated) 87 mg/dL <=99 mg/dL 02/17/2016 [facility] LIPIDS Trig 145 mg/dL <=149 mg/dL 02/17/2016 [facility] LIPIDS HDL 39 mg/dL >=61 mg/dL 02/17/2016 [facility] LIPIDS CHD Risk 3.97 3.90 - 5.80 02/17/2016 [facility] Chol 155 mg/dL <=199 mg/dL 02/17/2016 [facility] Carotid artery Doppler bilat US Carotid artery Doppler bilat US Carotid artery Doppler bilat US CLINICAL HISTORY: Stroke, ischemic. Fall COMPARISON: CT head 02/16/2016 TECHNIQUE: Puentes scale, color Doppler and spectral Doppler of the cervical carotid arteries was performed. Static images are submitted for review. FINDINGS: RIGHT: There is no significant intimal thickening or plaque visualized in right CCA. Visualized portion of right ECAs is patent. There is mild scattered calcific plaque in the carotid bulb and proximal portion of right ICA. Right ICA PSV 94 cm/sec. Right CCA PSV 81 cm/sec. Right ICA/CCA Ratio 1.2 LEFT: There is no significant intimal thickening or plaque visualized in the left CCA. Visualized portion of left ECAs is patent. The left carotid bulb and visualized portion of cervical left internal carotid artery demonstrates no significant plaque. Left ICA PSV 108 cm/sec. Left CCA PSV 103 cm/sec. Left ICA/CCA Ratio 1.0 Antegrade flow is visualized in both vertebral arteries. IMPRESSION: No sonographic evidence for hemodynamically significant stenosis. CONSENSUS PANEL Doppler US criteria for diagnosis of ICA stenosis: Stenosis (%) ICA PSV (cm/sec) ICA EDV(cm/sec) ICA/CCA ratio <50 % <125 <40 <2.0 50-69 % 125-230 40-100 2.0-4.0 >70% but less than >230 >100 >4.0 near occlusion NOTE: Any reported ICA stenoses indirectly reference the distal internal carotid diameter as the denominator for stenosis measurement utilizing Consensus Panel Criteria. SL: [id number] 02/16/2016 - - Read by: Neftali Kang MD Dictated Date/time: 02/16/16 14:08 Electronically Signed by: Neftali Kang MD 02/16/16 14:13 FINAL REPORT [facility] CHEM PANEL eGFR 96 mL/min/1.73m2 02/16/2016 Result Comment: The eGFR is calculated using the CKD-EPI formula. In most young, healthy individuals the eGFR will be >90 mL/min/1.73m2. The eGFR declines with age. An eGFR of 60-89 may be normal in some populations, particularly the elderly, for whom the CKD-EPI formula has not been extensively validated. Use of the eGFR is not recommended in the following populations: Individuals with unstable creatinine concentrations, including patients and those with serious co-morbid conditions. Patients with extremes in muscle mass or diet. The data above are obtained from the National Kidney Disease Education Program (NKDEP) which additionally recommends that when the eGFR is used in patients with extremes of body mass index for purposes of drug dosing, the eGFR should be multiplied by the estimated BMI. [facility] CHEM PANEL Glucose Lvl 321 mg/dL 70 - 99 02/16/2016 [facility] CHEM PANEL Creatinine Lvl 0.64 mg/dL 0.50 - 1.40 02/16/2016 [facility] CHEM PANEL Potassium Lvl 3.9 meq/L 3.5 - 5.1 02/16/2016 [facility] CHEM PANEL Sodium Lvl 139 meq/L 135 - 145 02/16/2016 [facility] CHEM PANEL BUN 16 mg/dL 7 - 22 02/16/2016 [facility] CHEM PANEL CO2 27 meq/L 24 - 32 02/16/2016 [facility] CHEM PANEL Calcium Lvl 7.7 mg/dL 8.5 - 10.5 02/16/2016 [facility] CHEM PANEL Chloride Lvl 104 meq/L 95 - 109 02/16/2016 [facility] CHEM PANEL AGAP 11.9 meq/L 10.0 - 20.0 02/16/2016 [facility] HEMATOLOGY Platelet 159 K/CMM 133 - 450 02/16/2016 [facility] [place] RDW 13.1 % 11.5 - 14.5 02/16/2016 [facility] [place] MCHC 32.1 g/dL 32.0 - 36.0 02/16/2016 [facility] [place] MCH 28.9 pg 27.0 - 31.0 02/16/2016 [facility] [place] MCV 90.2 fL 80.0 - 98.0 02/16/2016 [facility] [place] Hct 36.7 % 36.0 - 48.0 02/16/2016 [facility] [place] RBC 4.07 M/CMM 4.20 - 5.40 02/16/2016 [facility] [place] Hgb 11.8 g/dL 12.0 - 16.0 02/16/2016 [facility] [place] WBC 3.9 K/CMM 3.7 - 10.4 02/16/2016 [facility] [place] MPV 10.5 fL 7.4 - 10.4 02/16/2016 [facility] HEMATOLOGY Segs-Bands # 2.1 K/CMM 1.5 - 8.1 02/16/2016 [facility] HEMATOLOGY Basophils 1.0 % 0.0 - 1.0 02/16/2016 [facility] HEMATOLOGY Eosinophils 4.5 % 0.0 - 4.0 02/16/2016 [facility] HEMATOLOGY Monocytes 11.3 % 2.0 - 12.0 02/16/2016 [facility] HEMATOLOGY Lymphocytes 28.8 % 20.0 - 40.0 02/16/2016 [facility] HEMATOLOGY Segs 54.4 % 45.0 - 75.0 02/16/2016 [facility] HEMATOLOGY Monocytes # 0.4 K/CMM 0.0 - 0.8 02/16/2016 [facility] HEMATOLOGY Eosinophils # 0.2 K/CMM 0.0 - 0.5 02/16/2016 [facility] [place] Lymphocytes # 1.1 K/CMM 1.0 - 5.5 02/16/2016 [facility] Brain wo contrast CT Brain wo contrast CT Patient Name: KAREN ZUÑIGA : 1955; Age: 60 years Female MR: [id number] Study: Brain wo contrast CT 02/16/2016 9:08 AM CDT Clinical Indication: Headache with Lack of Coordination. pt was the stroke [employer]. weakness to the right side and confusion. COMPARISON: August 09, 2015. TECHNIQUE: CT images were obtained from the foramen magnum to the vertex without the use of intravenous contrast on a multidetector CT. Coronal and sagittal reconstructions were obtained. FINDINGS: BRAIN PARENCHYMA: There are normal puentes-white interfaces, sulci and gyri. There is no mass effect or midline shift. There is no extra-axial fluid collection, intraventricular or intraparenchymal hemorrhage. The sella and pineal regions are normal. The skull base, cerebellum and brainstem are normal. VENTRICLES: The ventricles are normal in size and configuration. The basilar cisterns are normal. ORBITS, MASTOIDS AND PARANASAL SINUSES: The visualized orbits are normal. The paranasal sinuses are normal. The mastoid air cells are clear. SKULL: There are no osseous abnormalities. If there is further concern for intracranial pathology or acute stroke, MRI of the brain may be performed for complete assessment. IMPRESSION: Normal noncontrast head CT. No mass, hemorrhage or subacute stroke. SL: [id number] 02/16/2016 - - Read by: Bryant Lowry MD Dictated Date/time: 02/16/16 09:35 Electronically Signed by: Bryant Lowry MD 02/16/16 09:38 FINAL REPORT [facility] CARDIAC ENZYMES CK MB Index 2.7 0.0 - 2.5 02/16/2016 [facility] CARDIAC ENZYMES CK MB 1.4 ng/mL 0.5 - 3.6 02/16/2016 [facility] CARDIAC ENZYMES Total CK 52 unit/L 12 - 191 02/16/2016 [facility] CARDIAC ENZYMES Troponin-I null 0.00 - 0.40 02/16/2016 [facility] CARDIAC ENZYMES CK MB Index 2.5 0.0 - 2.5 02/15/2016 [facility] CARDIAC ENZYMES Troponin-I null 0.00 - 0.40 02/15/2016 [facility] CARDIAC ENZYMES Total CK 57 unit/L 12 - 191 02/15/2016 [facility] CARDIAC ENZYMES CK MB 1.4 ng/mL 0.5 - 3.6 02/15/2016 [facility] CARDIAC ENZYMES Troponin-I null 0.00 - 0.40 02/15/2016 [facility] CARDIAC ENZYMES Total CK 67 unit/L 12 - 191 02/15/2016 [facility] CARDIAC ENZYMES CK MB 2.1 ng/mL 0.5 - 3.6 02/15/2016 [facility] CARDIAC ENZYMES CK MB Index 3.1 0.0 - 2.5 02/15/2016 [facility] URINE AND STOOL UA Urobilinogen <=1.0 mg/dL 0.1 - 1.0 02/15/2016 [facility] URINE AND STOOL UA Blood Small *ABN* (02/15/16 1:43 AM) Negative 02/15/2016 [facility] URINE AND STOOL UA Nitrite Positive *ABN* (02/15/16 1:43 AM) Negative 02/15/2016 [facility] URINE AND STOOL UA Spec Grav 1.031 <=1.030 02/15/2016 [facility] URINE AND STOOL UA pH 5.0 5.0 - 8.0 02/15/2016 [facility] URINE AND STOOL UA Sq Epi Occasional /LPF Few /LPF 02/15/2016 [facility] URINE AND STOOL UA Bili Negative *NA* (02/15/16 1:43 AM) Negative 02/15/2016 [facility] URINE AND STOOL UA Leuk Est Small *ABN* (02/15/16 1:43 AM) Negative 02/15/2016 [facility] URINE AND STOOL UA Glucose 500 mg/dL Negative mg/dL 02/15/2016 [facility] URINE AND STOOL UA Ketones Negative mg/dL Negative mg/dL 02/15/2016 [facility] URINE AND STOOL UA Protein 100 mg/dL Negative mg/dL 02/15/2016 [facility] URINE AND STOOL UA RBC 3 /HPF 0 - 2 02/15/2016 [facility] URINE AND STOOL UA Bacteria Occasional /HPF None Seen /HPF 02/15/2016 [facility] URINE AND STOOL UA WBC 6 /HPF 0 - 5 02/15/2016 [facility] URINE AND STOOL UA Color Yellow *NA* (02/15/16 1:43 AM) Yellow 02/15/2016 [facility] URINE AND STOOL UA Turbidity Slight *ABN* (02/15/16 1:43 AM) Clear 02/15/2016 [facility] CHEM PANEL Lipase Lvl 141 unit/L 73 - 393 02/15/2016 [facility] CHEM PANEL Amylase Lvl 19 unit/L 25 - 115 02/15/2016 [facility] CHEM PANEL eGFR 72 mL/min/1.73m2 02/15/2016 Result Comment: The eGFR is calculated using the CKD-EPI formula. In most young, healthy individuals the eGFR will be >90 mL/min/1.73m2. The eGFR declines with age. An eGFR of 60-89 may be normal in some populations, particularly the elderly, for whom the CKD-EPI formula has not been extensively validated. Use of the eGFR is not recommended in the following populations: Individuals with unstable creatinine concentrations, including patients and those with serious co-morbid conditions. Patients with extremes in muscle mass or diet. The data above are obtained from the National Kidney Disease Education Program (NKDEP) which additionally recommends that when the eGFR is used in patients with extremes of body mass index for purposes of drug dosing, the eGFR should be multiplied by the estimated BMI. [facility] CHEM PANEL Bili Total 0.4 mg/dL 0.2 - 1.3 02/15/2016 [facility] CHEM PANEL Calcium Lvl 8.3 mg/dL 8.5 - 10.5 02/15/2016 [facility] CHEM PANEL CO2 28 meq/L 24 - 32 02/15/2016 [facility] CHEM PANEL AGAP 13.7 meq/L 10.0 - 20.0 02/15/2016 [facility] CHEM PANEL B/C Ratio 17 6 - 25 02/15/2016 [facility] CHEM PANEL Total Protein 7.9 g/dL 6.4 - 8.4 02/15/2016 [facility] CHEM PANEL Sodium Lvl 137 meq/L 135 - 145 02/15/2016 [facility] CHEM PANEL Creatinine Lvl 0.87 mg/dL 0.50 - 1.40 02/15/2016 [facility] CHEM PANEL Potassium Lvl 3.7 meq/L 3.5 - 5.1 02/15/2016 [facility] CHEM PANEL Chloride Lvl 99 meq/L 95 - 109 02/15/2016 [facility] CHEM PANEL Alk Phos 139 unit/L 39 - 136 02/15/2016 [facility] CHEM PANEL Albumin Lvl 2.9 g/dL 3.5 - 5.0 02/15/2016 [facility] CHEM PANEL Globulin 5.0 g/dL 2.0 - 4.0 02/15/2016 [facility] CHEM PANEL A/G Ratio 0.6 0.7 - 1.6 02/15/2016 [facility] CHEM PANEL ALT 28 unit/L 0 - 65 02/15/2016 [facility] CHEM PANEL AST 19 unit/L 0 - 37 02/15/2016 [facility] CHEM PANEL Glucose Lvl 417 mg/dL 70 - 99 02/15/2016 Result Comment: Critical Result(s) called to melly velez at 02/15/2016 02:11 by [email or web address]. Read back OK. [facility] CHEM PANEL BUN 15 mg/dL 7 - 22 02/15/2016 [facility] HEMATOLOGY PTT 26.4 s 22.9 - 35.8 02/15/2016 [facility] HEMATOLOGY PT 13.2 s 12.0 - 14.7 02/15/2016 [facility] HEMATOLOGY INR 0.97 0.85 - 1.17 02/15/2016 [facility] HEMATOLOGY MPV 10.3 fL 7.4 - 10.4 02/15/2016 [facility] HEMATOLOGY MCH 28.9 pg 27.0 - 31.0 02/15/2016 [facility] HEMATOLOGY MCHC 32.0 g/dL 32.0 - 36.0 02/15/2016 [facility] HEMATOLOGY RDW 13.6 % 11.5 - 14.5 02/15/2016 [facility] HEMATOLOGY Platelet 200 K/CMM 133 - 450 02/15/2016 [facility] HEMATOLOGY Hgb 13.2 g/dL 12.0 - 16.0 02/15/2016 [facility] HEMATOLOGY Hct 41.1 % 36.0 - 48.0 02/15/2016 [facility] [place] MCV 90.2 fL 80.0 - 98.0 02/15/2016 [facility] [place] WBC 5.8 K/CMM 3.7 - 10.4 02/15/2016 [facility] [place] RBC 4.56 M/CMM 4.20 - 5.40 02/15/2016 [facility] [place] Monocytes # 0.7 K/CMM 0.0 - 0.8 02/15/2016 [facility] [place] Lymphocytes # 1.5 K/CMM 1.0 - 5.5 02/15/2016 [facility] [place] Eosinophils # 0.2 K/CMM 0.0 - 0.5 02/15/2016 [facility] [place] Basophils # 0.1 K/CMM 0.0 - 0.2 02/15/2016 [facility] [place] Lymphocytes 25.7 % 20.0 - 40.0 02/15/2016 [facility] [place] Eosinophils 2.9 % 0.0 - 4.0 02/15/2016 [facility] [place] Monocytes 12.5 % 2.0 - 12.0 02/15/2016 [facility] [place] Basophils 0.9 % 0.0 - 1.0 02/15/2016 [facility] [place] Segs-Bands # 3.3 K/CMM 1.5 - 8.1 02/15/2016 [facility] [place] Segs 58.0 % 45.0 - 75.0 02/15/2016 [facility] ED Abdomen/Pelvis IV contrast only CT ED Abdomen/Pelvis IV contrast only CT Patient Name: KAREN ZUÑIGA : 1955; Age: 60 years y/o Female MR: [id number] Study: ED Abdomen/Pelvis IV contrast only CT 02/15/2016 1:15 AM CDT Ordering Physician: Escobar Ojeda, DO Comparison: 04/27/2015 Clinical Indication: Left upper quadrant pain; Multiple computerized axial tomograms of the abdomen and pelvis were obtained after administration of IV contrast and without oral contrast. The lack of oral contrast limits diagnostic detail at the enteric tract and mesentery. 2-D sagittal and coronal reformation reconstruction images were obtained. Lung bases clear. Subcentimeter emphysematous bulla basal right lower lobe. Mild cardiomegaly. Thoracic and lumbar spondylosis are noted associated with degenerative arthropathy of the lower lumbar apophyseal joints. Mild diffuse fatty infiltration of the liver. Compensatory dilatation of the biliary tree status post cholecystectomy is noted. Correlation with liver function tests to exclude an obstructive pattern is suggested. A few scattered colonic diverticula are present at the abdomen associated with mild constipation. Liver, kidneys, spleen, pancreas and adrenal glands have an otherwise normal CT appearance. No adenopathy, abdominal mass, free fluid or pneumoperitoneum. The appendix is not visualized. No right lower quadrant inflammatory change. Gas is present within the urinary bladder lumen. No gas within the wall of the urinary bladder. The gas is likely iatrogenic; however, emphysematous cystitis or a fistula cannot be completely excluded. Clinical correlation is suggested. Uterus is surgically absent. No pelvic adenopathy, free fluid or pelvic mass is noted. The appearance of the lumbar spine is similar to the previous exam. IMPRESSION: 1. Gas is present within the urinary bladder lumen exclusively without without mural pneumatosis. This is presumably iatrogenic related to catheterization; however, clinical correlation is suggested as emphysematous cystitis and/or fistula is not excluded. 2. Mild cardiomegaly. 3. Mild diffuse fatty infiltration of the liver. 4. Status post cholecystectomy and hysterectomy. SL: [id number] 02/15/2016 - - Read by: Matt Jose MD Dictated Date/time: 02/15/16 02:55 Electronically Signed by: Matt Jose MD 02/15/16 02:59 FINAL REPORT [facility] Ext Lower Arterial Doppler bilat US Ext Lower Arterial Doppler bilat US ARTERIAL DOPPLER BILATERAL LOWER EXTREMITIES: HISTORY: Peripheral arterial disease. TECHNIQUE: Triplex evaluation of the femoropopliteal segments and distal runoff at the ankles was done. FINDINGS: The femoropopliteal segments are patent without evidence of thrombosis. Triphasic waveforms are demonstrated in the femoropopliteal segments. Biphasic waveforms are seen in the distal runoff vessels at the ankles. The following peak systolic velocity measurements were obtained: RIGHT LOWER EXTREMITY: Common femoral: 151 cm/s Proximal superficial femoral: 100 cm/s Mid superficial femoral: 114 cm/s Distal superficial femoral: 75 cm/s Popliteal: 89 cm/s Anterior tibial ankle: 54 cm/s Posterior tibial ankle: 60 cm/s LEFT LOWER EXTREMITY: Common femoral: 112 cm/s Proximal superficial femoral: 121 cm/s Mid superficial femoral: 117 cm/s Distal superficial femoral: 93 cm/s Popliteal: 78 cm/s Anterior tibial ankle: 36 cm/s Posterior tibial ankle: 81 cm/s IMPRESSION: Patent femoropopliteal segments without significant flow restriction. There may be mild flow restriction in the runoff vessels below the knees. Correlation with segmental pressures and ZHANE is suggested if further evaluation is needed. [id number] 02/06/2016 - - Read by: Filemon Mayorga MD Dictated Date/time: 02/06/16 16:28 Electronically Signed by: Filemon Mayorga MD 02/06/16 16:34 FINAL REPORT [facility] Ext Lower Venous Doppler Bilat US Ext Lower Venous Doppler Bilat US VENOUS DOPPLER BILATERAL LOWER EXTREMITIES: HISTORY: Bilateral lower extremity swelling. FINDINGS: Compression duplex ultrasound of the lower extremities was done from the inguinal through the infrageniculate popliteal regions. The visualized superficial and deep veins are patent and compressible without evidence of intraluminal thrombus. Satisfactory spontaneous and augmented flow is demonstrated in the visualized segments. IMPRESSION: Negative venous Doppler of the lower extremities. [id number] 02/06/2016 - - Read by: Filemon Mayorga MD Dictated Date/time: 02/06/16 16:27 Electronically Signed by: Filemon Mayorga MD 02/06/16 16:28 FINAL REPORT [facility] Spine cervical wo contrast CT Spine cervical wo contrast CT CT BRAIN AND CERVICAL SPINE WITHOUT CONTRAST INDICATION: Posttraumatic head and neck pain COMPARISON: CT brain 06/06/2015 DISCUSSION: BRAIN: There is no evidence of acute vascular insults, space occupying lesions, hemorrhage, hydrocephalus, midline shift, or extra-axial collections. The calvarium is intact. CERVICAL SPINE: There are no fractures or subluxations. No gross soft tissue injuries are seen. Ligament, spinal cord and/or vascular abnormalities cannot be excluded on the basis of this examination. There is no significant spondylosis, spinal canal or foraminal stenosis. Multinodular thyroid is incidentally noted. IMPRESSION: No acute intracranial or cervical spine abnormalities are visualized. : 16 08/09/2015 - - Read by: Cristóbal Miles MD Dictated Date/time: 08/09/15 19:36 Electronically Signed by: Cristóbal Miles MD 08/09/15 19:39 FINAL REPORT [facility] Brain wo contrast CT Brain wo contrast CT CT BRAIN AND CERVICAL SPINE WITHOUT CONTRAST INDICATION: Posttraumatic head and neck pain COMPARISON: CT brain 06/06/2015 DISCUSSION: BRAIN: There is no evidence of acute vascular insults, space occupying lesions, hemorrhage, hydrocephalus, midline shift, or extra-axial collections. The calvarium is intact. CERVICAL SPINE: There are no fractures or subluxations. No gross soft tissue injuries are seen. Ligament, spinal cord and/or vascular abnormalities cannot be excluded on the basis of this examination. There is no significant spondylosis, spinal canal or foraminal stenosis. Multinodular thyroid is incidentally noted. IMPRESSION: No acute intracranial or cervical spine abnormalities are visualized. SL: 08/09/2015 - - Read by: Cristóbal Miles MD Dictated Date/time: 08/09/15 19:36 Electronically Signed by: Cristóbal Miles MD 08/09/15 19:39 FINAL REPORT [facility] Elbow 3 views DX Elbow 3 views DX RIGHT ELBOW RADIOGRAPH 3 VIEW INDICATION: Posttraumatic right elbow pain COMPARISON: None IMPRESSION: No acute bony abnormalities are visualized. SL: 08/09/2015 - - Read by: Cristóbal Miles MD Dictated Date/time: 08/09/15 19:10 Electronically Signed by: Cristóbal Miles MD 08/09/15 19:11 FINAL REPORT [facility] Hand 3 views DX Hand 3 views DX RIGHT HAND RADIOGRAPH 3 VIEW INDICATION: Post traumatic right hand pain COMPARISON: Right wrist radiograph 05/28/2015 IMPRESSION: There is a chronic fracture deformity of the distal radius. No acute bony abnormalities are visualized. Polyarticular degenerative arthrosis of the hand is noted. SL: 08/09/2015 - - Read by: Cristóbal Miles MD Dictated Date/time: 08/09/15 19:05 Electronically Signed by: Cristóbal Miles MD 08/09/15 19:06 FINAL REPORT [facility] Shoulder series DX Shoulder series DX RIGHT SHOULDER RADIOGRAPH 3 VIEW INDICATION: Post traumatic right shoulder pain COMPARISON: None IMPRESSION: No acute bony abnormalities are visualized. SL: 08/09/2015 - - Read by: Cristóbal Miles MD Dictated Date/time: 08/09/15 19:05 Electronically Signed by: Cristóbal Miles MD 08/09/15 19:05 FINAL REPORT [facility] Knee series 3 views DX Knee series 3 views DX RIGHT KNEE RADIOGRAPH 3 VIEW INDICATION: Posttraumatic right knee pain COMPARISON: None IMPRESSION: No acute bony abnormalities are visualized. The joint spaces are maintained. SL: 08/09/2015 - - Read by: Cristóbal Miles MD Dictated Date/time: 08/09/15 19:12 Electronically Signed by: Cristóbal Miles MD 08/09/15 19:12 FINAL REPORT [facility] Ankle 3 views DX Ankle 3 views DX RIGHT ANKLE RADIOGRAPH 3 VIEW INDICATION: Posttraumatic right ankle pain COMPARISON: None IMPRESSION: There is mild soft tissue swelling about the ankle. No acute bony abnormalities are visualized. Calcaneal spurring is noted. SL: 08/09/2015 - - Read by: Cristóbal Miles MD Dictated Date/time: 08/09/15 19:11 Electronically Signed by: Cristóbal Miles MD 08/09/15 19:12 FINAL REPORT [facility] Wrist 2 views DX Wrist 2 views DX Right wrist, 2 views: CLINICAL HISTORY: Pain from a fall 1. Diffuse osteopenia. 2. Old healed impacted right distal radial fracture. 3. Mild osteoarthritis. 4. No acute fracture, dislocation, or focal osseous lesion is appreciated. 5. Mild soft tissue thickening. SL:06/06/2015 - - Read by: Addy Parsons MD Dictated Date/time: 06/06/15 04:52 Electronically Signed by: Addy Parsons MD 06/06/15 04:54 FINAL REPORT [facility] Pelvis AP DX Pelvis AP DX Pelvis, 1 view: CLINICAL HISTORY: Pain, Trauma 1. No acute fracture, dislocation, or focal osseous lesion is appreciated. 2. Mild osteoarthritis involving both hips and SI joints. 3. Mild to moderate lumbar spondylosis and facet arthrosis. 4. The soft tissues are normal. SL:06/06/2015 - - Read by: Addy Parsons MD Dictated Date/time: 06/06/15 04:49 Electronically Signed by: Addy Parsons MD 06/06/15 04:50 FINAL REPORT [facility] Knee series 3 views DX Knee series 3 views DX Left knee, 4 views: CLINICAL HISTORY: Pain, Trauma 1. Diffuse osteopenia. 2. No acute fracture, dislocation, or focal osseous lesion is appreciated. 3. Mild tricompartmental osteoarthritis. 4. Mild soft tissue thickening without a knee joint effusion. SL:06/06/2015 - - Read by: Addy Parsons MD Dictated Date/time: 06/06/15 04:47 Electronically Signed by: Addy Parsons MD 06/06/15 04:49 FINAL REPORT [facility] Brain wo contrast CT Brain wo contrast CT CT HEAD WITHOUT CONTRAST: CLINICAL HISTORY: Head trauma TECHNIQUE AND FINDINGS: A routine CT head was performed without contrast injection. COMPARISON: 05/09/2009. The brain volume and ventricle size are appropriate for age. No definite acute intracranial hemorrhage, mass, mass-effect, or extra-axial fluid collection is appreciated. The puentes-white matter junction differentiation is preserved. The visualized portions of the paranasal sinuses are clear. No acute fracture dislocation, or suspicious osseous lesion. Hyperostosis frontalis. IMPRESSION: 1. Normal CT brain without contrast. SL:06/06/2015 - - Read by: Addy Parsons MD Dictated Date/time: 06/06/15 00:39 Electronically Signed by: Addy Parsons MD 06/06/15 00:40 FINAL REPORT [facility] Spine cervical wo contrast CT (ER) Spine cervical wo contrast CT (ER) CT CERVICAL SPINE WITHOUT CONTRAST: CLINICAL HISTORY: Cervical pain after trauma. TECHNIQUE AND FINDINGS: Multiple contiguous transaxial noncontrast CT images were obtained through the cervical spine. Additionally, sagittal and coronal reformatted images were prepared. COMPARISON: No prior similar examinations are available for comparison. Mild cervical spondylosis and facet arthrosis. No definite fracture or dislocation is appreciated. The sagittal and coronal reformatted images demonstrate normal alignment. The prevertebral soft tissue thickness is normal. Heterogeneous thyroid with small indeterminate low-attenuation lesions bilaterally. IMPRESSION: 1. Mild cervical degenerative change without acute fracture or dislocation. 2. Heterogeneous thyroid with small indeterminate low-attenuation lesions bilaterally. Follow-up thyroid ultrasound is recommended. SL:06/06/2015 - - Read by: Addy Parsons MD Dictated Date/time: 06/06/15 00:40 Electronically Signed by: Addy Parsons MD 06/06/15 00:45 FINAL REPORT [facility] CHEM PANEL Globulin 5.7 g/dL 2.0 - 4.0 05/28/2015 [facility] CHEM PANEL B/C Ratio 28 6 - 25 05/28/2015 [facility] CHEM PANEL AGAP 12.1 meq/L 10.0 - 20.0 05/28/2015 [facility] CHEM PANEL A/G Ratio 0.6 0.7 - 1.6 05/28/2015 [facility] CHEM PANEL eGFR 80 mL/min/1.73m2 05/28/2015 1Result Comment: The eGFR is calculated using the CKD-EPI formula. In most young, healthy individuals the eGFR will be >90 mL/min/1.73m2. The eGFR declines with age. An eGFR of 60-89 may be normal in some populations, particularly the elderly, for whom the CKD-EPI formula has not been extensively validated. Use of the eGFR is not recommended in the following populations: Individuals with unstable creatinine concentrations, including patients and those with serious co-morbid conditions. Patients with extremes in muscle mass or diet. The data above are obtained from the National Kidney Disease Education Program (NKDEP) which additionally recommends that when the eGFR is used in patients with extremes of body mass index for purposes of drug dosing, the eGFR should be multiplied by the estimated BMI. [facility] CHEM PANEL Bili Total 0.2 mg/dL 0.2 - 1.3 05/28/2015 [facility] CHEM PANEL Alk Phos 142 unit/L 39 - 136 05/28/2015 [facility] CHEM PANEL Glucose Lvl 295 mg/dL 70 - 99 05/28/2015 2Interpretive Data: Adult reference range values reflect the clinical guidelines of the [place] [employer]. [facility] CHEM PANEL Creatinine Lvl 0.8 mg/dL 0.5 - 1.4 05/28/2015 [facility] CHEM PANEL BUN 22 mg/dL 7 - 22 05/28/2015 [facility] CHEM PANEL ALT 35 unit/L 0 - 65 05/28/2015 [facility] CHEM PANEL AST 23 unit/L 0 - 37 05/28/2015 [facility] CHEM PANEL Albumin Lvl 3.2 g/dL 3.5 - 5.0 05/28/2015 [facility] CHEM PANEL Total Protein 8.9 g/dL 6.4 - 8.4 05/28/2015 [facility] CHEM PANEL CO2 29 meq/L 24 - 32 05/28/2015 [facility] CHEM PANEL Sodium Lvl 134 meq/L 135 - 145 05/28/2015 [facility] CHEM PANEL Calcium Lvl 8.4 mg/dL 8.5 - 10.5 05/28/2015 [facility] CHEM PANEL Potassium Lvl 4.1 meq/L 3.5 - 5.1 05/28/2015 [facility] CHEM PANEL Chloride Lvl 97 meq/L 95 - 109 05/28/2015 [facility] HEMATOLOGY Segs 53.0 % 45.0 - 75.0 05/28/2015 [facility] HEMATOLOGY Monocytes 11.0 % 2.0 - 12.0 05/28/2015 [facility] HEMATOLOGY Lymphocytes 32.6 % 20.0 - 40.0 05/28/2015 [facility] HEMATOLOGY Lymphocytes # 2.2 K/CMM 1.0 - 5.5 05/28/2015 [facility] HEMATOLOGY Eosinophils # 0.2 K/CMM 0.0 - 0.5 05/28/2015 [facility] HEMATOLOGY Monocytes # 0.7 K/CMM 0.0 - 0.8 05/28/2015 [facility] HEMATOLOGY Basophils # 0.1 K/CMM 0.0 - 0.2 05/28/2015 [facility] HEMATOLOGY Eosinophils 2.4 % 0.0 - 4.0 05/28/2015 [facility] [place] Basophils 1.0 % 0.0 - 1.0 05/28/2015 [facility] [place] Segs-Bands # 3.5 K/CMM 1.5 - 8.1 05/28/2015 [facility] [place] MPV 10.3 fL 7.4 - 10.4 05/28/2015 [facility] [place] MCV 92.4 fL 80.0 - 98.0 05/28/2015 [facility] [place] MCH 31.2 pg 27.0 - 31.0 05/28/2015 [facility] [place] MCHC 33.7 g/dL 32.0 - 36.0 05/28/2015 [facility] [place] RDW 13.5 % 11.5 - 14.5 05/28/2015 [facility] [place] Platelet 212 K/CMM 133 - 450 05/28/2015 [facility] [place] WBC 6.7 K/CMM 3.7 - 10.4 05/28/2015 [facility] [place] RBC 4.69 M/CMM 4.20 - 5.40 05/28/2015 [facility] [place] Hgb 14.6 g/dL 12.0 - 16.0 05/28/2015 [facility] [place] Hct 43.3 % 36.0 - 48.0 05/28/2015 [facility] URINE AND STOOL UA Color Ltyellow 05/28/2015 [facility] URINE AND STOOL UA Urobilinogen <=1.0 mg/dL 0.1 - 1.0 05/28/2015 [facility] URINE AND STOOL UA Mucus Few /LPF None Seen /LPF 05/28/2015 [facility] URINE AND STOOL UA Bacteria Many /HPF None Seen /HPF 05/28/2015 [facility] URINE AND STOOL UA RBC 4 /HPF 0 - 2 05/28/2015 [facility] URINE AND STOOL UA Hyal Cast 2 /LPF 0 - 2 05/28/2015 [facility] URINE AND STOOL UA Blood Small *ABN* (05/28/15 6:15 PM) Negative 05/28/2015 [facility] URINE AND STOOL UA Bili Negative *NA* (05/28/15 6:15 PM) Negative 05/28/2015 [facility] URINE AND STOOL UA Ketones Negative mg/dL Negative mg/dL 05/28/2015 [facility] URINE AND STOOL UA Glucose 500 mg/dL Negative mg/dL 05/28/2015 [facility] URINE AND STOOL UA WBC 5 /HPF 0 - 5 05/28/2015 [facility] URINE AND STOOL UA Sq Epi Few /LPF Few /LPF 05/28/2015 [facility] URINE AND STOOL UA Leuk Est Small *ABN* (05/28/15 6:15 PM) Negative 05/28/2015 [facility] URINE AND STOOL UA Nitrite Negative (05/28/15 6:15 PM) Negative 05/28/2015 [facility] URINE AND STOOL UA Protein 30 mg/dL Negative mg/dL 05/28/2015 [facility] URINE AND STOOL UA pH 5.0 5.0 - 8.0 05/28/2015 [facility] URINE AND STOOL UA Spec Grav 1.036 <=1.030 05/28/2015 [facility] URINE AND STOOL UA Turbidity Marked *ABN* (05/28/15 6:15 PM) Clear 05/28/2015 [facility] CHEM PANEL Alk Phos 152 unit/L 39 - 136 04/27/2015 [facility] CHEM PANEL AST 21 unit/L 0 - 37 04/27/2015 [facility] CHEM PANEL ALT 32 unit/L 0 - 65 04/27/2015 [facility] CHEM PANEL Bili Total 0.3 mg/dL 0.2 - 1.3 04/27/2015 [facility] CHEM PANEL A/G Ratio 0.6 0.7 - 1.6 04/27/2015 [facility] CHEM PANEL Globulin 4.8 g/dL 2.0 - 4.0 04/27/2015 [facility] CHEM PANEL eGFR 61 mL/min/1.73m2 04/27/2015 1Result Comment: The eGFR is calculated using the CKD-EPI formula. In most young, healthy individuals the eGFR will be >90 mL/min/1.73m2. The eGFR declines with age. An eGFR of 60-89 may be normal in some populations, particularly the elderly, for whom the CKD-EPI formula has not been extensively validated. Use of the eGFR is not recommended in the following populations: Individuals with unstable creatinine concentrations, including patients and those with serious co-morbid conditions. Patients with extremes in muscle mass or diet. The data above are obtained from the National Kidney Disease Education Program (NKDEP) which additionally recommends that when the eGFR is used in patients with extremes of body mass index for purposes of drug dosing, the eGFR should be multiplied by the estimated BMI. [facility] CHEM PANEL CO2 30 meq/L 24 - 32 04/27/2015 [facility] CHEM PANEL Glucose Lvl 491 mg/dL 70 - 99 04/27/2015 3Interpretive Data: Adult reference range values reflect the clinical guidelines of the [place] [employer]. [facility] CHEM PANEL Creatinine Lvl 1.0 mg/dL 0.5 - 1.4 04/27/2015 [facility] CHEM PANEL BUN 21 mg/dL 7 - 22 04/27/2015 [facility] CHEM PANEL Calcium Lvl 8.5 mg/dL 8.5 - 10.5 04/27/2015 [facility] CHEM PANEL AGAP 11.0 meq/L 10.0 - 20.0 04/27/2015 [facility] CHEM PANEL B/C Ratio 21 6 - 25 04/27/2015 [facility] CHEM PANEL Albumin Lvl 2.7 g/dL 3.5 - 5.0 04/27/2015 [facility] CHEM PANEL Total Protein 7.5 g/dL 6.4 - 8.4 04/27/2015 [facility] CHEM PANEL Chloride Lvl 98 meq/L 95 - 109 04/27/2015 [facility] CHEM PANEL Potassium Lvl 4.0 meq/L 3.5 - 5.1 04/27/2015 [facility] CHEM PANEL Sodium Lvl 135 meq/L 135 - 145 04/27/2015 [facility] HEMATOLOGY RDW 13.8 % 11.5 - 14.5 04/27/2015 [facility] HEMATOLOGY MCH 31.0 pg 27.0 - 31.0 04/27/2015 [facility] HEMATOLOGY MCHC 33.6 g/dL 32.0 - 36.0 04/27/2015 [facility] HEMATOLOGY MCV 92.3 fL 80.0 - 98.0 04/27/2015 [facility] HEMATOLOGY Hct 38.0 % 36.0 - 48.0 04/27/2015 [facility] [place] Hgb 12.8 g/dL 12.0 - 16.0 04/27/2015 [facility] HEMATOLOGY RBC 4.12 M/CMM 4.20 - 5.40 04/27/2015 [facility] HEMATOLOGY WBC 4.4 K/CMM 3.7 - 10.4 04/27/2015 [facility] HEMATOLOGY Platelet 167 K/CMM 133 - 450 04/27/2015 [facility] [place] MPV 10.6 fL 7.4 - 10.4 04/27/2015 [facility] [place] Monocytes # 0.5 K/CMM 0.0 - 0.8 04/27/2015 [facility] HEMATOLOGY Eosinophils # 0.1 K/CMM 0.0 - 0.5 04/27/2015 [facility] HEMATOLOGY Basophils 0.9 % 0.0 - 1.0 04/27/2015 [facility] [place] Eosinophils 2.9 % 0.0 - 4.0 04/27/2015 [facility] [place] Monocytes 11.5 % 2.0 - 12.0 04/27/2015 [facility] [place] Segs 51.6 % 45.0 - 75.0 04/27/2015 [facility] [place] Lymphocytes 33.1 % 20.0 - 40.0 04/27/2015 [facility] [place] Lymphocytes # 1.4 K/CMM 1.0 - 5.5 04/27/2015 [facility] [place] Segs-Bands # 2.2 K/CMM 1.5 - 8.1 04/27/2015 [facility] URINE AND STOOL UA Color Ltyellow 04/27/2015 [facility] URINE AND STOOL UA Urobilinogen <=1.0 mg/dL 0.1 - 1.0 04/27/2015 [facility] URINE AND STOOL UA Sq Epi Occasional /LPF Few /LPF 04/27/2015 [facility] URINE AND STOOL UA WBC 5 /HPF 0 - 5 04/27/2015 [facility] URINE AND STOOL UA RBC 7 /HPF 0 - 2 04/27/2015 [facility] URINE AND STOOL UA Blood Negative (04/27/15 3:43 AM) Negative 04/27/2015 [facility] URINE AND STOOL UA Nitrite Negative (04/27/15 3:43 AM) Negative 04/27/2015 [facility] URINE AND STOOL UA Leuk Est Trace *ABN* (04/27/15 3:43 AM) Negative 04/27/2015 [facility] URINE AND STOOL UA Bili Negative *NA* (04/27/15 3:43 AM) Negative 04/27/2015 [facility] URINE AND STOOL UA Glucose 500 mg/dL Negative mg/dL 04/27/2015 [facility] URINE AND STOOL UA Ketones 20 mg/dL Negative mg/dL 04/27/2015 [facility] URINE AND STOOL UA Turbidity Clear (04/27/15 3:43 AM) Clear 04/27/2015 [facility] URINE AND STOOL UA pH 5.0 5.0 - 8.0 04/27/2015 [facility] URINE AND STOOL UA Spec Grav 1.031 <=1.030 04/27/2015 [facility] URINE AND STOOL UA Protein Negative mg/dL Negative mg/dL 04/27/2015 [facility] URINE AND STOOL UA [place] Yeast Many /HPF None Seen /HPF 04/27/2015 [facility] URINE AND STOOL UA Bacteria Occasional /HPF None Seen /HPF 04/27/2015 [facility] ED Abdomen/Pelvis IV contrast only CT ED Abdomen/Pelvis IV contrast only CT NAME: KAREN ZUÑIGA : 1955 SEX: F Ordering Physician: Tami Alcantara ED Abdomen/Pelvis IV contrast only CT : Apr 27, 2015 05:50:00 AM. CLINICAL INDICATION: Abdominal pain, acute. Comparison Examination: 11/16/2014. FINDINGS: Slight atelectasis seen in the inferior left lower lobe. The lung bases are otherwise clear without significant pleural effusion bilaterally. No focal liver or splenic abnormality. The adrenals, kidneys and pancreas are unremarkable. The gallbladder is not identified. Abdominal aortic calcification. Small right inguinal hernia containing fat. No abdominal or pelvic adenopathy. The patient is status post hysterectomy. The bladder is unremarkable. The appendix is unremarkable. No bowel abnormality identified in the abdomen or pelvis. No abnormal fluid collection identified in the abdomen or pelvis. Small amount of nonspecific inflammation is seen just underneath the skin surface in the anterolateral left lower abdominal subcutaneous tissues. CONCLUSIONS: 1. Gallbladder not identified. 2. Status post hysterectomy. 3. Abdominal aortic calcification. 4. Small right inguinal hernia containing fat. 5. Small amount of nonspecific inflammation just underneath the skin surface in the anterolateral left lower abdominal subcutaneous tissues. SL: 14 04/27/2015 - - Read by: Eric Boyd MD Dictated Date/time: 04/27/15 06:04 Electronically Signed by: Eric Boyd MD 04/27/15 06:13 FINAL REPORT [facility] VIRAL - SEROLOGY Influ B Negative 3 (01/14/15 12:05 AM) Negative 01/14/2015 3Interpretive Data: Influenza A&B Antigen: Due to the low sensitivity of this test a negative result does not exclude influenza virus infection. A diagnosis of influenza should be considered based on a patient's clinical presentation and empiric antiviral treatment should be considered, if indicated. If more conclusive testing is desired, follow-up confirmatory testing with either viral culture or PCR is warranted. [facility] VIRAL - SEROLOGY Influ A Negative (01/14/15 12:05 AM) Negative 01/14/2015 [facility] CHEM PANEL Albumin Lvl 3.2 g/dL 3.5 - 5.0 01/14/2015 [facility] CHEM PANEL Alk Phos 153 unit/L 39 - 136 01/14/2015 [facility] CHEM PANEL Bili Total 0.3 mg/dL 0.2 - 1.3 01/14/2015 [facility] CHEM PANEL ALT 24 unit/L 0 - 65 01/14/2015 [facility] CHEM PANEL AST 16 unit/L 0 - 37 01/14/2015 [facility] CHEM PANEL Creatinine Lvl 0.9 mg/dL 0.5 - 1.4 01/14/2015 [facility] CHEM PANEL Total Protein 8.3 g/dL 6.4 - 8.4 01/14/2015 [facility] CHEM PANEL CO2 27 meq/L 24 - 32 01/14/2015 [facility] CHEM PANEL eGFR 69 mL/min/1.73m2 01/14/2015 1Result Comment: The eGFR is calculated using the CKD-EPI formula. In most young, healthy individuals the eGFR will be >90 mL/min/1.73m2. The eGFR declines with age. An eGFR of 60-89 may be normal in some populations, particularly the elderly, for whom the CKD-EPI formula has not been extensively validated. Use of the eGFR is not recommended in the following populations: Individuals with unstable creatinine concentrations, including patients and those with serious co-morbid conditions. Patients with extremes in muscle mass or diet. The data above are obtained from the National Kidney Disease Education Program (NKDEP) which additionally recommends that when the eGFR is used in patients with extremes of body mass index for purposes of drug dosing, the eGFR should be multiplied by the estimated BMI. [facility] CHEM PANEL BUN 19 mg/dL 7 - 22 01/14/2015 [facility] CHEM PANEL Glucose Lvl 381 mg/dL 70 - 99 01/14/2015 2Interpretive Data: Adult reference range values reflect the clinical guidelines of the [place] [employer]. [facility] CHEM PANEL Chloride Lvl 97 meq/L 95 - 109 01/14/2015 [facility] CHEM PANEL Calcium Lvl 8.5 mg/dL 8.5 - 10.5 01/14/2015 [facility] CHEM PANEL Sodium Lvl 134 meq/L 135 - 145 01/14/2015 [facility] CHEM PANEL Potassium Lvl 3.7 meq/L 3.5 - 5.1 01/14/2015 [facility] CHEM PANEL A/G Ratio 0.6 0.7 - 1.6 01/14/2015 [facility] CHEM PANEL B/C Ratio 21 6 - 25 01/14/2015 [facility] CHEM PANEL Globulin 5.1 g/dL 2.0 - 4.0 01/14/2015 [facility] CHEM PANEL AGAP 13.7 meq/L 10.0 - 20.0 01/14/2015 [facility] [place] Platelet 198 K/CMM 133 - 450 01/14/2015 [facility] [place] MPV 10.0 fL 7.4 - 10.4 01/14/2015 [facility] [place] RDW 13.6 % 11.5 - 14.5 01/14/2015 [facility] [place] MCHC 33.1 g/dL 32.0 - 36.0 01/14/2015 [facility] [place] MCH 29.8 pg 27.0 - 31.0 01/14/2015 [facility] [place] RBC 4.29 M/CMM 4.20 - 5.40 01/14/2015 [facility] [place] Hgb 12.8 g/dL 12.0 - 16.0 01/14/2015 [facility] [place] WBC 5.6 K/CMM 3.7 - 10.4 01/14/2015 [facility] [place] MCV 90.0 fL 80.0 - 98.0 01/14/2015 [facility] [place] Hct 38.7 % 36.0 - 48.0 01/14/2015 [facility] [place] Basophils # 0.1 K/CMM 0.0 - 0.2 01/14/2015 [facility] [place] Eosinophils # 0.1 K/CMM 0.0 - 0.5 01/14/2015 [facility] [place] Monocytes # 0.7 K/CMM 0.0 - 0.8 01/14/2015 [facility] [place] Lymphocytes # 1.5 K/CMM 1.0 - 5.5 01/14/2015 [facility] [place] Basophils 1.0 % 0.0 - 1.0 01/14/2015 [facility] [place] Eosinophils 1.6 % 0.0 - 4.0 01/14/2015 [facility] [place] Monocytes 12.6 % 2.0 - 12.0 01/14/2015 [facility] [place] Lymphocytes 26.3 % 20.0 - 40.0 01/14/2015 [facility] [place] Segs 58.5 % 45.0 - 75.0 01/14/2015 [facility] [place] Segs-Bands # 3.3 K/CMM 1.5 - 8.1 01/14/2015 [facility] [place]-Hep C Ab Negative *NA* (01/13/15 9:03 PM) Negative 01/14/2015 [facility] CDC HIV 4th GEN Negative (01/13/15 9:03 PM) Negative 01/14/2015 [facility] Chest 2 views DX Chest 2 views DX PROCEDURE: Chest 2 views REASON FOR EXAM: See Clinic Indication CLINICAL INDICATION: Chest pain COMPARISON: None. FINDINGS: No acute process. No focal consolidation, pleural effusion, or pneumothorax. Normal cardiac silhouette and mediastinum. Atherosclerotic thoracic aorta. Diffuse osteopenia and DJD of the spine. SL: 12 01/13/2015 - - Read by: Rafael Ojeda MD Dictated Date/time: 01/13/15 23:59 Electronically Signed by: Rafael Ojeda MD 01/14/15 00:00 FINAL REPORT [facility] Foot series DX Foot series DX RIGHT FOOT right 3 views HISTORY: right great toe pain and swelling TECHNIQUE: Frontal, lateral, and oblique views of the right foot were obtained. FINDINGS: There is suggestion of swelling of the great toe. Please correlate with clinical examination. The remainder of the soft tissues are unremarkable. There is no evidence of fracture, dislocation, or acute change. The joint spaces are well maintained. There are no destructive lesions. Is a small plantar calcaneal spur. There are no other osteoarticular abnormalities. CONCLUSION: 1. There is no evidence of fracture, dislocation, or acute change. 2. Small plantar calcaneal spur. 3. No other osseous abnormalities are seen about the right foot. 4. Suggestion of soft tissue swelling involving the great toe. Please correlate with clinical examination. Coding: Foot series CPT code: 66505 SL: 13 Nirmal Ortega M.D. 01/13/2015 - - Read by: Nirmal Ortega MD Dictated Date/time: 01/13/15 19:42 Electronically Signed by: Nirmal Ortega MD 01/13/15 19:44 FINAL REPORT [facility] ELECTROLYTES AGAP 10.6 meq/L 10.0 - 20.0 11/16/2014 [facility] ELECTROLYTES eGFR 80 mL/min/1.73m2 11/16/2014 1Result Comment: The eGFR is calculated using the CKD-EPI formula. In most young, healthy individuals the eGFR will be >90 mL/min/1.73m2. The eGFR declines with age. An eGFR of 60-89 may be normal in some populations, particularly the elderly, for whom the CKD-EPI formula has not been extensively validated. Use of the eGFR is not recommended in the following populations: Individuals with unstable creatinine concentrations, including patients and those with serious co-morbid conditions. Patients with extremes in muscle mass or diet. The data above are obtained from the National Kidney Disease Education Program (NKDEP) which additionally recommends that when the eGFR is used in patients with extremes of body mass index for purposes of drug dosing, the eGFR should be multiplied by the estimated BMI. [facility] ELECTROLYTES Calcium Lvl 9.0 mg/dL 8.5 - 10.5 11/16/2014 [facility] ELECTROLYTES CO2 29 meq/L 24 - 32 11/16/2014 [facility] ELECTROLYTES Chloride Lvl 98 meq/L 95 - 109 11/16/2014 [facility] ELECTROLYTES Sodium Lvl 134 meq/L 135 - 145 11/16/2014 [facility] ELECTROLYTES Potassium Lvl 3.6 meq/L 3.5 - 5.1 11/16/2014 [facility] ELECTROLYTES Creatinine Lvl 0.8 mg/dL 0.5 - 1.4 11/16/2014 [facility] ELECTROLYTES Glucose Lvl 369 mg/dL 70 - 99 11/16/2014 2Interpretive Data: Adult reference range values reflect the clinical guidelines of the [place] [employer]. [facility] ELECTROLYTES BUN 17 mg/dL 7 - 22 11/16/2014 [facility] HEMATOLOGY MCV 89.8 fL 80.0 - 98.0 11/16/2014 [facility] HEMATOLOGY WBC 3.6 K/CMM 3.7 - 10.4 11/16/2014 [facility] [place] RBC 4.47 M/CMM 4.20 - 5.40 11/16/2014 [facility] [place] Hgb 13.1 g/dL 12.0 - 16.0 11/16/2014 [facility] [place] Hct 40.2 % 36.0 - 48.0 11/16/2014 [facility] [place] MCH 29.3 pg 27.0 - 31.0 11/16/2014 [facility] [place] MCHC 32.6 g/dL 32.0 - 36.0 11/16/2014 [facility] [place] RDW 13.8 % 11.5 - 14.5 11/16/2014 [facility] [place] Platelet 222 K/CMM 133 - 450 11/16/2014 [facility] [place] MPV 10.1 fL 7.4 - 10.4 11/16/2014 [facility] [place] Monocytes # 0.5 K/CMM 0.0 - 0.8 11/16/2014 [facility] [place] Eosinophils # 0.1 K/CMM 0.0 - 0.5 11/16/2014 [facility] [place] Segs-Bands # 2.0 K/CMM 1.5 - 8.1 11/16/2014 [facility] [place] Lymphocytes # 1.0 K/CMM 1.0 - 5.5 11/16/2014 [facility] [place] Segs 56.3 % 45.0 - 75.0 11/16/2014 [facility] [place] Lymphocytes 26.8 % 20.0 - 40.0 11/16/2014 [facility] [place] Monocytes 12.7 % 2.0 - 12.0 11/16/2014 [facility] HEMATOLOGY Eosinophils 3.2 % 0.0 - 4.0 11/16/2014 [facility] [place] Basophils 1.0 % 0.0 - 1.0 11/16/2014 [facility] Abdomen/Pelvis w IV contrast CT Abdomen/Pelvis w IV contrast CT HISTORY: Acute abdominal pain. CT abdomen and pelvis performed with IV and oral contrast. Mild dependent atelectasis. No pleural effusion. Cholecystectomy and hysterectomy. Liver, spleen, pancreas, kidneys and adrenal glands are unremarkable. No bowel obstruction free air or pathologic fluid within the abdomen or pelvis. No abdominal wall fluid collection. There are degenerative changes in the lumbar spine. IMPRESSION: No acute finding. SL:13 11/16/2014 - - Read by: Brannon Leone MD Dictated Date/time: 11/16/14 12:20 Electronically Signed by: Brannon Leone MD 11/16/14 12:25 FINAL REPORT [facility] Spine cervical series DX Spine cervical series DX HISTORY: Trauma. Cervical spine 5 views. Normal vertebral height and alignment. No fracture subluxation or lesion. Normal facet joints and neural exit foramina. IMPRESSION: Negative. SL:13 11/16/2014 - - Read by: Brannon Leone MD Dictated Date/time: 11/16/14 10:23 Electronically Signed by: Brannon Leone MD 11/16/14 10:24 FINAL REPORT [facility] Wrist complete ( min.3 views) Wrist complete ( min.3 views) HISTORY: Fall, pain. RIGHT WRIST 3 VIEWS: IMPRESSION: Nondisplaced, mildly impacted distal radial intra-articular fracture. SL:13 11/16/2014 - - Read by: Brannon Leone MD Dictated Date/time: 11/16/14 10:22 Electronically Signed by: Brannon Leone MD 11/16/14 10:23 FINAL REPORT [facility] eGFR 94 mL/min/1.73m2 10/30/2014 1Result Comment: The eGFR is calculated using the CKD-EPI formula. In most young, healthy individuals the eGFR will be >90 mL/min/1.73m2. The eGFR declines with age. An eGFR of 60-89 may be normal in some populations, particularly the elderly, for whom the CKD-EPI formula has not been extensively validated. Use of the eGFR is not recommended in the following populations: Individuals with unstable creatinine concentrations, including patients and those with serious co-morbid conditions. Patients with extremes in muscle mass or diet. The data above are obtained from the National Kidney Disease Education Program (NKDEP) which additionally recommends that when the eGFR is used in patients with extremes of body mass index for purposes of drug dosing, the eGFR should be multiplied by the estimated BMI. [facility] CHEM PANEL Calcium Lvl 8.3 mg/dL 8.5 - 10.5 10/30/2014 [facility] CHEM PANEL Glucose Lvl 330 mg/dL 70 - 99 10/30/2014 2Interpretive Data: Adult reference range values reflect the clinical guidelines of the [place] [employer]. [facility] CHEM PANEL CO2 28 meq/L 24 - 32 10/30/2014 [facility] CHEM PANEL Creatinine Lvl 0.7 mg/dL 0.5 - 1.4 10/30/2014 [facility] CHEM PANEL BUN 10 mg/dL 7 - 22 10/30/2014 [facility] CHEM PANEL Potassium Lvl 3.5 meq/L 3.5 - 5.1 10/30/2014 [facility] CHEM PANEL Sodium Lvl 135 meq/L 135 - 145 10/30/2014 [facility] CHEM PANEL Chloride Lvl 97 meq/L 95 - 109 10/30/2014 [facility] CHEM PANEL AGAP 13.5 meq/L 10.0 - 20.0 10/30/2014 [facility] HEMATOLOGY Segs-Bands # 2.1 K/CMM 1.5 - 8.1 10/30/2014 [facility] HEMATOLOGY Basophils 0.9 % 0.0 - 1.0 10/30/2014 [facility] HEMATOLOGY Lymphocytes # 1.1 K/CMM 1.0 - 5.5 10/30/2014 [facility] HEMATOLOGY Eosinophils 7.6 % 0.0 - 4.0 10/30/2014 [facility] HEMATOLOGY Eosinophils # 0.3 K/CMM 0.0 - 0.5 10/30/2014 [facility] HEMATOLOGY Monocytes # 0.5 K/CMM 0.0 - 0.8 10/30/2014 [facility] HEMATOLOGY Lymphocytes 28.3 % 20.0 - 40.0 10/30/2014 [facility] HEMATOLOGY Monocytes 12.3 % 2.0 - 12.0 10/30/2014 [facility] HEMATOLOGY Segs 50.9 % 45.0 - 75.0 10/30/2014 [facility] HEMATOLOGY RDW 13.0 % 11.5 - 14.5 10/30/2014 [facility] HEMATOLOGY MCH 29.7 pg 27.0 - 31.0 10/30/2014 [facility] HEMATOLOGY Platelet 303 K/CMM 133 - 450 10/30/2014 [facility] HEMATOLOGY MCHC 33.0 g/dL 32.0 - 36.0 10/30/2014 [facility] HEMATOLOGY MCV 90.0 fL 80.0 - 98.0 10/30/2014 [facility] HEMATOLOGY Hct 35.0 % 36.0 - 48.0 10/30/2014 [facility] HEMATOLOGY RBC 3.88 M/CMM 4.20 - 5.40 10/30/2014 [facility] HEMATOLOGY Hgb 11.5 g/dL 12.0 - 16.0 10/30/2014 [facility] HEMATOLOGY WBC 4.1 K/CMM 3.7 - 10.4 10/30/2014 [facility] HEMATOLOGY MPV 8.3 fL 7.4 - 10.4 10/30/2014 [facility] CHEM PANEL Glucose Lvl 422 mg/dL 70 - 99 10/29/2014 4Interpretive Data: Adult reference range values reflect the clinical guidelines of the [place] [employer]. [facility] ELECTROLYTES AGAP 13.6 meq/L 10.0 - 20.0 10/26/2014 [facility] ELECTROLYTES BUN 3 mg/dL 7 - 22 10/26/2014 [facility] ELECTROLYTES eGFR 94 mL/min/1.73m2 10/26/2014 1Result Comment: The eGFR is calculated using the CKD-EPI formula. In most young, healthy individuals the eGFR will be >90 mL/min/1.73m2. The eGFR declines with age. An eGFR of 60-89 may be normal in some populations, particularly the elderly, for whom the CKD-EPI formula has not been extensively validated. Use of the eGFR is not recommended in the following populations: Individuals with unstable creatinine concentrations, including patients and those with serious co-morbid conditions. Patients with extremes in muscle mass or diet. The data above are obtained from the National Kidney Disease Education Program (NKDEP) which additionally recommends that when the eGFR is used in patients with extremes of body mass index for purposes of drug dosing, the eGFR should be multiplied by the estimated BMI. [facility] ELECTROLYTES CO2 25 meq/L 24 - 32 10/26/2014 [facility] ELECTROLYTES Calcium Lvl 8.2 mg/dL 8.5 - 10.5 10/26/2014 [facility] ELECTROLYTES Sodium Lvl 134 meq/L 135 - 145 10/26/2014 [facility] ELECTROLYTES Potassium Lvl 3.6 meq/L 3.5 - 5.1 10/26/2014 [facility] ELECTROLYTES Chloride Lvl 99 meq/L 95 - 109 10/26/2014 [facility] ELECTROLYTES Creatinine Lvl 0.7 mg/dL 0.5 - 1.4 10/26/2014 [facility] ELECTROLYTES Glucose Lvl 313 mg/dL 70 - 99 10/26/2014 4Interpretive Data: Adult reference range values reflect the clinical guidelines of the [place] [employer]. [facility] HEMATOLOGY Hct 35.1 % 36.0 - 48.0 10/26/2014 [facility] HEMATOLOGY Hgb 11.4 g/dL 12.0 - 16.0 10/26/2014 [facility] HEMATOLOGY MPV 8.6 fL 7.4 - 10.4 10/26/2014 [facility] HEMATOLOGY Platelet 308 K/CMM 133 - 450 10/26/2014 [facility] HEMATOLOGY MCHC 32.5 g/dL 32.0 - 36.0 10/26/2014 [facility] HEMATOLOGY RDW 13.3 % 11.5 - 14.5 10/26/2014 [facility] HEMATOLOGY RBC 3.89 M/CMM 4.20 - 5.40 10/26/2014 [facility] HEMATOLOGY WBC 4.2 K/CMM 3.7 - 10.4 10/26/2014 [facility] HEMATOLOGY MCH 29.3 pg 27.0 - 31.0 10/26/2014 [facility] HEMATOLOGY MCV 90.2 fL 80.0 - 98.0 10/26/2014 [facility] HEMATOLOGY Segs 53.6 % 45.0 - 75.0 10/26/2014 [facility] HEMATOLOGY Lymphocytes 22.6 % 20.0 - 40.0 10/26/2014 [facility] HEMATOLOGY Monocytes 15.5 % 2.0 - 12.0 10/26/2014 [facility] HEMATOLOGY Lymphocytes # 0.9 K/CMM 1.0 - 5.5 10/26/2014 [facility] HEMATOLOGY Monocytes # 0.6 K/CMM 0.0 - 0.8 10/26/2014 [facility] HEMATOLOGY Segs-Bands # 2.2 K/CMM 1.5 - 8.1 10/26/2014 [facility] HEMATOLOGY Eosinophils 7.2 % 0.0 - 4.0 10/26/2014 [facility] HEMATOLOGY Basophils 1.1 % 0.0 - 1.0 10/26/2014 [facility] HEMATOLOGY Eosinophils # 0.3 K/CMM 0.0 - 0.5 10/26/2014 [facility] ELECTROLYTES AGAP 12.6 meq/L 10.0 - 20.0 10/25/2014 [facility] ELECTROLYTES Sodium Lvl 137 meq/L 135 - 145 10/25/2014 [facility] ELECTROLYTES Chloride Lvl 101 meq/L 95 - 109 10/25/2014 [facility] ELECTROLYTES Potassium Lvl 3.6 meq/L 3.5 - 5.1 10/25/2014 [facility] ELECTROLYTES eGFR 94 mL/min/1.73m2 10/25/2014 2Result Comment: The eGFR is calculated using the CKD-EPI formula. In most young, healthy individuals the eGFR will be >90 mL/min/1.73m2. The eGFR declines with age. An eGFR of 60-89 may be normal in some populations, particularly the elderly, for whom the CKD-EPI formula has not been extensively validated. Use of the eGFR is not recommended in the following populations: Individuals with unstable creatinine concentrations, including patients and those with serious co-morbid conditions. Patients with extremes in muscle mass or diet. The data above are obtained from the National Kidney Disease Education Program (NKDEP) which additionally recommends that when the eGFR is used in patients with extremes of body mass index for purposes of drug dosing, the eGFR should be multiplied by the estimated BMI. [facility] ELECTROLYTES Calcium Lvl 7.5 mg/dL 8.5 - 10.5 10/25/2014 [facility] ELECTROLYTES Creatinine Lvl 0.7 mg/dL 0.5 - 1.4 10/25/2014 [facility] ELECTROLYTES CO2 27 meq/L 24 - 32 10/25/2014 [facility] ELECTROLYTES Glucose Lvl 386 mg/dL 70 - 99 10/25/2014 5Interpretive Data: Adult reference range values reflect the clinical guidelines of the [place] [employer]. [facility] ELECTROLYTES BUN 5 mg/dL 7 - 22 10/25/2014 [facility] HEMATOLOGY Hgb 10.9 g/dL 12.0 - 16.0 10/25/2014 [facility] [place] Hct 33.5 % 36.0 - 48.0 10/25/2014 [facility] [place] RBC 3.69 M/CMM 4.20 - 5.40 10/25/2014 [facility] [place] MCHC 32.6 g/dL 32.0 - 36.0 10/25/2014 [facility] [place] MCV 90.9 fL 80.0 - 98.0 10/25/2014 [facility] [place] MCH 29.6 pg 27.0 - 31.0 10/25/2014 [facility] [place] RDW 13.5 % 11.5 - 14.5 10/25/2014 [facility] [place] WBC 3.8 K/CMM 3.7 - 10.4 10/25/2014 [facility] [place] Platelet 270 K/CMM 133 - 450 10/25/2014 [facility] [place] MPV 8.7 fL 7.4 - 10.4 10/25/2014 [facility] HEMATOLOGY Lymphocytes # 1.0 K/CMM 1.0 - 5.5 10/25/2014 [facility] HEMATOLOGY Segs-Bands # 1.9 K/CMM 1.5 - 8.1 10/25/2014 [facility] HEMATOLOGY Basophils 0.9 % 0.0 - 1.0 10/25/2014 [facility] HEMATOLOGY Eosinophils 6.9 % 0.0 - 4.0 10/25/2014 [facility] HEMATOLOGY Eosinophils # 0.3 K/CMM 0.0 - 0.5 10/25/2014 [facility] HEMATOLOGY Monocytes # 0.6 K/CMM 0.0 - 0.8 10/25/2014 [facility] HEMATOLOGY Segs 49.0 % 45.0 - 75.0 10/25/2014 [facility] HEMATOLOGY Lymphocytes 27.3 % 20.0 - 40.0 10/25/2014 [facility] HEMATOLOGY Monocytes 15.9 % 2.0 - 12.0 10/25/2014 [facility] URINE AND STOOL Fecal Leukocyte Few 7 (10/24/14 7:30 AM) 10/24/2014 7Interpretive Data: A Value of None Seen, Rare, or Few is Normal. [facility] ELECTROLYTES AGAP 11.6 meq/L 10.0 - 20.0 10/24/2014 [facility] ELECTROLYTES eGFR 94 mL/min/1.73m2 10/24/2014 3Result Comment: The eGFR is calculated using the CKD-EPI formula. In most young, healthy individuals the eGFR will be >90 mL/min/1.73m2. The eGFR declines with age. An eGFR of 60-89 may be normal in some populations, particularly the elderly, for whom the CKD-EPI formula has not been extensively validated. Use of the eGFR is not recommended in the following populations: Individuals with unstable creatinine concentrations, including patients and those with serious co-morbid conditions. Patients with extremes in muscle mass or diet. The data above are obtained from the National Kidney Disease Education Program (NKDEP) which additionally recommends that when the eGFR is used in patients with extremes of body mass index for purposes of drug dosing, the eGFR should be multiplied by the estimated BMI. [facility] ELECTROLYTES Potassium Lvl 3.6 meq/L 3.5 - 5.1 10/24/2014 [facility] ELECTROLYTES CO2 27 meq/L 24 - 32 10/24/2014 [facility] ELECTROLYTES Chloride Lvl 102 meq/L 95 - 109 10/24/2014 [facility] ELECTROLYTES Calcium Lvl 7.4 mg/dL 8.5 - 10.5 10/24/2014 [facility] ELECTROLYTES Glucose Lvl 329 mg/dL 70 - 99 10/24/2014 6Interpretive Data: Adult reference range values reflect the clinical guidelines of the [place] [employer]. [facility] ELECTROLYTES BUN 6 mg/dL 7 - 22 10/24/2014 [facility] ELECTROLYTES Creatinine Lvl 0.7 mg/dL 0.5 - 1.4 10/24/2014 [facility] ELECTROLYTES Sodium Lvl 137 meq/L 135 - 145 10/24/2014 [facility] HEMATOLOGY Hct 31.9 % 36.0 - 48.0 10/24/2014 [facility] [place] Hgb 10.6 g/dL 12.0 - 16.0 10/24/2014 [facility] HEMATOLOGY Platelet 227 K/CMM 133 - 450 10/24/2014 [facility] [place] RDW 13.3 % 11.5 - 14.5 10/24/2014 [facility] [place] MCV 91.2 fL 80.0 - 98.0 10/24/2014 [facility] [place] MCHC 33.2 g/dL 32.0 - 36.0 10/24/2014 [facility] [place] MCH 30.3 pg 27.0 - 31.0 10/24/2014 [facility] [place] MPV 9.1 fL 7.4 - 10.4 10/24/2014 [facility] [place] WBC 4.7 K/CMM 3.7 - 10.4 10/24/2014 [facility] [place] RBC 3.50 M/CMM 4.20 - 5.40 10/24/2014 [facility] HEMATOLOGY Monocytes # 0.7 K/CMM 0.0 - 0.8 10/24/2014 [facility] HEMATOLOGY Lymphocytes # 1.2 K/CMM 1.0 - 5.5 10/24/2014 [facility] HEMATOLOGY Segs-Bands # 2.6 K/CMM 1.5 - 8.1 10/24/2014 [facility] HEMATOLOGY Basophils # 0.1 K/CMM 0.0 - 0.2 10/24/2014 [facility] HEMATOLOGY Eosinophils # 0.3 K/CMM 0.0 - 0.5 10/24/2014 [facility] HEMATOLOGY Lymphocytes 25.0 % 20.0 - 40.0 10/24/2014 [facility] HEMATOLOGY Segs 54.5 % 45.0 - 75.0 10/24/2014 [facility] HEMATOLOGY Eosinophils 5.6 % 0.0 - 4.0 10/24/2014 [facility] HEMATOLOGY Monocytes 13.8 % 2.0 - 12.0 10/24/2014 [facility] HEMATOLOGY Basophils 1.1 % 0.0 - 1.0 10/24/2014 [facility] HEMATOLOGY Basophils # 0.1 K/CMM 0.0 - 0.2 10/23/2014 [facility] CHEM PANEL Magnesium Lvl 1.7 mg/dL 1.8 - 2.4 10/22/2014 [facility] HEMATOLOGY Basophils # 0.1 K/CMM 0.0 - 0.2 10/22/2014 [facility] HEMATOLOGY PTT 37.0 s 22.9 - 35.8 10/21/2014 8Interpretive Data: Heparin Therapeutic Range: 57 - 92 Seconds [facility] CARDIAC ENZYMES CK MB Index null 0.0 - 2.5 10/21/2014 [facility] CARDIAC ENZYMES Troponin-I null 0.00 - 0.40 10/21/2014 [facility] CARDIAC ENZYMES CK MB null 0.5 - 3.6 10/21/2014 [facility] CARDIAC ENZYMES Total CK 33 unit/L 12 - 191 10/21/2014 [facility] CHEM PANEL Amylase Lvl 16 unit/L 25 - 115 10/21/2014 [facility] CHEM PANEL Lipase Lvl 70 unit/L 73 - 393 10/21/2014 [facility] CHEM PANEL AST 14 unit/L 0 - 37 10/21/2014 [facility] CHEM PANEL Alk Phos 90 unit/L 39 - 136 10/21/2014 [facility] CHEM PANEL Total Protein 7.2 g/dL 6.4 - 8.4 10/21/2014 [facility] CHEM PANEL Albumin Lvl 2.7 g/dL 3.5 - 5.0 10/21/2014 [facility] CHEM PANEL ALT 17 unit/L 0 - 65 10/21/2014 [facility] CHEM PANEL Bili Total 0.6 mg/dL 0.2 - 1.3 10/21/2014 [facility] CHEM PANEL B/C Ratio 18 6 - 25 10/21/2014 [facility] CHEM PANEL Globulin 4.5 g/dL 2.0 - 4.0 10/21/2014 [facility] CHEM PANEL A/G Ratio 0.6 0.7 - 1.6 10/21/2014 [facility] URINE AND STOOL UA Urobilinogen 4.0 mg/dL 0.1 - 1.0 10/21/2014 [facility] URINE AND STOOL UA Blood Negative (10/20/14 9:50 PM) Negative 10/21/2014 [facility] URINE AND STOOL UA RBC 6 /HPF 0 - 2 10/21/2014 [facility] URINE AND STOOL UA Nitrite Positive *ABN* (10/20/14 9:50 PM) Negative 10/21/2014 [facility] URINE AND STOOL UA Bacteria Occasional /HPF None Seen /HPF 10/21/2014 [facility] URINE AND STOOL UA Mucus Few /LPF None Seen /LPF 10/21/2014 [facility] URINE AND STOOL UA Sq Epi Few /LPF Few /LPF 10/21/2014 [facility] URINE AND STOOL UA WBC 48 /HPF 0 - 5 10/21/2014 [facility] URINE AND STOOL UA Leuk Est Moderate *ABN* (10/20/14 9:50 PM) Negative 10/21/2014 [facility] URINE AND STOOL UA Bili Negative *NA* (10/20/14 9:50 PM) Negative 10/21/2014 [facility] URINE AND STOOL UA Glucose 50 mg/dL Negative mg/dL 10/21/2014 [facility] URINE AND STOOL UA Ketones 20 mg/dL Negative mg/dL 10/21/2014 [facility] URINE AND STOOL UA Spec Grav 1.018 <=1.030 10/21/2014 [facility] URINE AND STOOL UA Protein 30 mg/dL Negative mg/dL 10/21/2014 [facility] URINE AND STOOL UA pH 6.0 5.0 - 8.0 10/21/2014 [facility] URINE AND STOOL UA Turbidity Slight *ABN* (10/20/14 9:50 PM) Clear 10/21/2014 [facility] URINE AND STOOL UA Color Yellow *NA* (10/20/14 9:50 PM) Yellow 10/21/2014 [facility] Abdomen/Pelvis w IV contrast CT Abdomen/Pelvis w IV contrast CT EXAM: CT ABDOMEN AND PELVIS WITH IV CONTRAST DATE: Oct 21, 2014 12:22:44 AM CLINICAL INDICATIONS: Abdominal pain, acute TECHNIQUE: Multiple helical of abdomen and pelvis from the level of the domes of the diaphragm through the symphysis pubis after the administration of intravenous and oral contrast. Axial, sagittal and coronal reformats are provided. Delayed images through the abdomen were acquired. COMPARISON: CT abdomen pelvis 02/03/2009.. FINDINGS: Elevation of the left hemidiaphragm is seen. There is a trace left pleural effusion. Bibasilar subsegmental atelectasis is identified. The liver, spleen, gallbladder, bilateral adrenal glands, and bilateral kidneys are within normal limits.. The pancreas is atrophic. A right abdomen catheter is located in the anterior peritoneum with its tip in the left upper abdomen. The catheter is anterior to the transverse colon and does not enter and a loop of bowel. Fat stranding is present along the catheter tract. No abscess is identified. No subdiaphragmatic lymphadenopathy is seen. . No intraperitoneal free air seen. Trace amount of hypodense free fluid in the pelvis is nonspecific. Mild pelvic fat edema is also present. The large and small bowel are normal in caliber. The appendix is normal. No osseous destructive lesions are seen.. Lumbar spine spondylosis is seen. IMPRESSION: 1. Right abdomen catheter is located within the anterior peritoneum with its tip in the left upper abdomen with mild surrounding fat edema. No abscess seen. The catheter does not enter bowel. 2. Trace left pleural effusion. 3. Trace ascites. 4. Bibasilar subsegmental ectasis. SL: 14 10/21/2014 - - Read by: Isabella Chandler MD Dictated Date/time: 10/21/14 00:41 Electronically Signed by: Isabella Chandler MD 10/21/14 00:49 FINAL REPORT [facility] CHEM PANEL Magnesium Lvl 1.7 mg/dL 1.8 - 2.4 10/13/2014 [facility] CHEM PANEL Phosphorus 2.5 mg/dL 2.5 - 4.5 10/13/2014 [facility] ELECTROLYTES AGAP 12.0 meq/L 10.0 - 20.0 10/13/2014 [facility] ELECTROLYTES eGFR 94 mL/min/1.73m2 10/13/2014 1Result Comment: The eGFR is calculated using the CKD-EPI formula. In most young, healthy individuals the eGFR will be >90 mL/min/1.73m2. The eGFR declines with age. An eGFR of 60-89 may be normal in some populations, particularly the elderly, for whom the CKD-EPI formula has not been extensively validated. Use of the eGFR is not recommended in the following populations: Individuals with unstable creatinine concentrations, including patients and those with serious co-morbid conditions. Patients with extremes in muscle mass or diet. The data above are obtained from the National Kidney Disease Education Program (NKDEP) which additionally recommends that when the eGFR is used in patients with extremes of body mass index for purposes of drug dosing, the eGFR should be multiplied by the estimated BMI. [facility] ELECTROLYTES Creatinine Lvl 0.7 mg/dL 0.5 - 1.4 10/13/2014 [facility] ELECTROLYTES BUN 8 mg/dL 7 - 22 10/13/2014 [facility] ELECTROLYTES Glucose Lvl 196 mg/dL 70 - 99 10/13/2014 4Interpretive Data: Adult reference range values reflect the clinical guidelines of the [place] [employer]. [facility] ELECTROLYTES Chloride Lvl 105 meq/L 95 - 109 10/13/2014 [facility] ELECTROLYTES Potassium Lvl 4.0 meq/L 3.5 - 5.1 10/13/2014 [facility] ELECTROLYTES Sodium Lvl 136 meq/L 135 - 145 10/13/2014 [facility] ELECTROLYTES Calcium Lvl 8.5 mg/dL 8.5 - 10.5 10/13/2014 [facility] ELECTROLYTES CO2 23 meq/L 24 - 32 10/13/2014 [facility] [place] RBC 4.28 M/CMM 4.20 - 5.40 10/13/2014 [facility] [place] Hct 38.6 % 36.0 - 48.0 10/13/2014 [facility] [place] Platelet 224 K/CMM 133 - 450 10/13/2014 [facility] [place] RDW 13.3 % 11.5 - 14.5 10/13/2014 [facility] [place] MCHC 33.1 g/dL 32.0 - 36.0 10/13/2014 [facility] [place] MCH 29.9 pg 27.0 - 31.0 10/13/2014 [facility] [place] MCV 90.3 fL 80.0 - 98.0 10/13/2014 [facility] [place] MPV 10.2 fL 7.4 - 10.4 10/13/2014 [facility] [place] Hgb 12.8 g/dL 12.0 - 16.0 10/13/2014 [facility] [place] WBC 6.8 K/CMM 3.7 - 10.4 10/13/2014 [facility] [place] Lymphocytes 27.4 % 20.0 - 40.0 10/13/2014 [facility] [place] Eosinophils # 0.1 K/CMM 0.0 - 0.5 10/13/2014 [facility] [place] Monocytes # 0.9 K/CMM 0.0 - 0.8 10/13/2014 [facility] [place] Basophils 0.7 % 0.0 - 1.0 10/13/2014 [facility] HEMATOLOGY Segs-Bands # 3.9 K/CMM 1.5 - 8.1 10/13/2014 [facility] HEMATOLOGY Monocytes 13.0 % 2.0 - 12.0 10/13/2014 [facility] HEMATOLOGY Eosinophils 1.8 % 0.0 - 4.0 10/13/2014 [facility] HEMATOLOGY Segs 57.1 % 45.0 - 75.0 10/13/2014 [facility] HEMATOLOGY Lymphocytes # 1.9 K/CMM 1.0 - 5.5 10/13/2014 [facility] HEMATOLOGY Monocytes 8.6 % 2.0 - 12.0 10/12/2014 [facility] HEMATOLOGY Lymphocytes 7.9 % 20.0 - 40.0 10/12/2014 [facility] HEMATOLOGY Segs-Bands # 8.0 K/CMM 1.5 - 8.1 10/12/2014 [facility] HEMATOLOGY Basophils 0.3 % 0.0 - 1.0 10/12/2014 [facility] HEMATOLOGY Segs 83.2 % 45.0 - 75.0 10/12/2014 [facility] HEMATOLOGY Lymphocytes # 0.8 K/CMM 1.0 - 5.5 10/12/2014 [facility] HEMATOLOGY Monocytes # 0.8 K/CMM 0.0 - 0.8 10/12/2014 [facility] HEMATOLOGY RDW 13.0 % 11.5 - 14.5 10/12/2014 [facility] HEMATOLOGY Platelet 209 K/CMM 133 - 450 10/12/2014 [facility] HEMATOLOGY MPV 10.5 fL 7.4 - 10.4 10/12/2014 [facility] [place] MCHC 33.2 g/dL 32.0 - 36.0 10/12/2014 [facility] HEMATOLOGY WBC 9.6 K/CMM 3.7 - 10.4 10/12/2014 [facility] HEMATOLOGY RBC 4.25 M/CMM 4.20 - 5.40 10/12/2014 [facility] HEMATOLOGY Hct 38.4 % 36.0 - 48.0 10/12/2014 [facility] HEMATOLOGY MCV 90.5 fL 80.0 - 98.0 10/12/2014 [facility] HEMATOLOGY Hgb 12.7 g/dL 12.0 - 16.0 10/12/2014 [facility] HEMATOLOGY MCH 30.0 pg 27.0 - 31.0 10/12/2014 [facility] Upper GI Series w water soluble DX Upper GI Series w water soluble DX EXAM: Upper GI series CLINICAL INFORMATION: Dysphagia, See Clinic Indication, recent lap band removal. The patient reports lap band placed 26 years ago and that only a portion of the lap band could be removed during recent surgery. TECHNIQUE: The patient ingested iodinated contrast and then barium without difficulty. Fluoroscopy and films were performed the FLUORO TIME: One minute. COMPARISON: Upper GI series dated 10/07/2014. The images from video barium swallow dated 10/10/2014 are not available. FINDINGS: There continues to be narrowing in the proximal stomach, similar to pre-lap band removal images. There is no obstruction to the passage of contrast through this area of narrowing, but the appearance suggests that there may be residual stricture despite lap band removal. No contrast extravasation is seen. Recommend correlation with endoscopy. SL: 13 10/12/2014 - - Read by: Joshua Nolan MD Dictated Date/time: 10/12/14 09:13 Electronically Signed by: Joshua Nolan MD 10/12/14 09:19 FINAL REPORT [facility] CHEM PANEL eGFR 54 mL/min/1.73m2 10/12/2014 2Result Comment: The eGFR is calculated using the CKD-EPI formula. In most young, healthy individuals the eGFR will be >90 mL/min/1.73m2. The eGFR declines with age. An eGFR of 60-89 may be normal in some populations, particularly the elderly, for whom the CKD-EPI formula has not been extensively validated. Use of the eGFR is not recommended in the following populations: Individuals with unstable creatinine concentrations, including patients and those with serious co-morbid conditions. Patients with extremes in muscle mass or diet. The data above are obtained from the National Kidney Disease Education Program (NKDEP) which additionally recommends that when the eGFR is used in patients with extremes of body mass index for purposes of drug dosing, the eGFR should be multiplied by the estimated BMI. [facility] CHEM PANEL Creatinine Lvl 1.1 mg/dL 0.5 - 1.4 10/12/2014 [facility] HEMATOLOGY Platelet 194 K/CMM 133 - 450 10/12/2014 [facility] Barium Swallow w Esophagus Function DX Barium Swallow w Esophagus Function DX EXAM: Esophagram HISTORY: Abdominal pain, previous gastric lap band. COMPARISON: Upper GI 10/07/2014 TECHNIQUE: The patient was given thin barium. Fluoro time 1.5 minutes. FINDINGS: Mild to moderate distal esophageal dysmotility with tertiary esophageal contractions is seen with liquid barium. Contrast passes into the stomach with dilation of the proximal stomach again noted with focal narrowing just distally which may reflect the site of the lap band. Contrast opacifies the remainder of the stomach in a normal manner. IMPRESSION: Possible overinflation of presumed gastric band with dilation of the proximal stomach and distal esophageal dysmotility. SL:13 10/10/2014 - - Read by: Valentin Walsh MD Dictated Date/time: 10/10/14 16:44 Electronically Signed by: Valentin Walsh MD 10/10/14 16:51 FINAL REPORT [facility] ELECTROLYTES AGAP 18.0 meq/L 10.0 - 20.0 10/10/2014 [facility] ELECTROLYTES eGFR 99 mL/min/1.73m2 10/10/2014 3Result Comment: The eGFR is calculated using the CKD-EPI formula. In most young, healthy individuals the eGFR will be >90 mL/min/1.73m2. The eGFR declines with age. An eGFR of 60-89 may be normal in some populations, particularly the elderly, for whom the CKD-EPI formula has not been extensively validated. Use of the eGFR is not recommended in the following populations: Individuals with unstable creatinine concentrations, including patients and those with serious co-morbid conditions. Patients with extremes in muscle mass or diet. The data above are obtained from the National Kidney Disease Education Program (NKDEP) which additionally recommends that when the eGFR is used in patients with extremes of body mass index for purposes of drug dosing, the eGFR should be multiplied by the estimated BMI. [facility] ELECTROLYTES BUN 9 mg/dL 7 - 22 10/10/2014 [facility] ELECTROLYTES Glucose Lvl 117 mg/dL 70 - 99 10/10/2014 5Interpretive Data: Adult reference range values reflect the clinical guidelines of the [place] [employer]. [facility] ELECTROLYTES Creatinine Lvl 0.6 mg/dL 0.5 - 1.4 10/10/2014 [facility] ELECTROLYTES CO2 22 meq/L 24 - 32 10/10/2014 [facility] ELECTROLYTES Calcium Lvl 8.5 mg/dL 8.5 - 10.5 10/10/2014 [facility] ELECTROLYTES Chloride Lvl 102 meq/L 95 - 109 10/10/2014 [facility] ELECTROLYTES Potassium Lvl 4.0 meq/L 3.5 - 5.1 10/10/2014 [facility] ELECTROLYTES Sodium Lvl 138 meq/L 135 - 145 10/10/2014 [facility] HEMATOLOGY Lymphocytes # 1.5 K/CMM 1.0 - 5.5 10/10/2014 [facility] HEMATOLOGY Monocytes # 0.5 K/CMM 0.0 - 0.8 10/10/2014 [facility] HEMATOLOGY Eosinophils # 0.2 K/CMM 0.0 - 0.5 10/10/2014 [facility] HEMATOLOGY Basophils # 0.0 K/CMM 0.0 - 0.2 10/10/2014 [facility] HEMATOLOGY Segs 47.4 % 45.0 - 75.0 10/10/2014 [facility] HEMATOLOGY Monocytes 12.6 % 2.0 - 12.0 10/10/2014 [facility] HEMATOLOGY Lymphocytes 35.4 % 20.0 - 40.0 10/10/2014 [facility] HEMATOLOGY Basophils 0.8 % 0.0 - 1.0 10/10/2014 [facility] HEMATOLOGY Eosinophils 3.8 % 0.0 - 4.0 10/10/2014 [facility] HEMATOLOGY Segs-Bands # 2.0 K/CMM 1.5 - 8.1 10/10/2014 [facility] HEMATOLOGY MPV 10.2 fL 7.4 - 10.4 10/10/2014 [facility] HEMATOLOGY MCHC 33.2 g/dL 32.0 - 36.0 10/10/2014 [facility] HEMATOLOGY RDW 13.0 % 11.5 - 14.5 10/10/2014 [facility] HEMATOLOGY RBC 4.39 M/CMM 4.20 - 5.40 10/10/2014 [facility] HEMATOLOGY WBC 4.3 K/CMM 3.7 - 10.4 10/10/2014 [facility] HEMATOLOGY Hct 39.6 % 36.0 - 48.0 10/10/2014 [facility] HEMATOLOGY Hgb 13.1 g/dL 12.0 - 16.0 10/10/2014 [facility] HEMATOLOGY MCV 90.2 fL 80.0 - 98.0 10/10/2014 [facility] HEMATOLOGY MCH 29.9 pg 27.0 - 31.0 10/10/2014 [facility] ELECTROLYTES AGAP 12.2 meq/L 10.0 - 20.0 10/07/2014 [facility] ELECTROLYTES Chloride Lvl 101 meq/L 95 - 109 10/07/2014 [facility] ELECTROLYTES Sodium Lvl 137 meq/L 135 - 145 10/07/2014 [facility] ELECTROLYTES Potassium Lvl 4.2 meq/L 3.5 - 5.1 10/07/2014 [facility] ELECTROLYTES CO2 28 meq/L 24 - 32 10/07/2014 [facility] ELECTROLYTES Calcium Lvl 8.4 mg/dL 8.5 - 10.5 10/07/2014 [facility] ELECTROLYTES Glucose Lvl 303 mg/dL 70 - 99 10/07/2014 6Interpretive Data: Adult reference range values reflect the clinical guidelines of the [place] [employer]. [facility] ELECTROLYTES BUN 12 mg/dL 7 - 22 10/07/2014 [facility] HEMATOLOGY Eosinophils 4.4 % 0.0 - 4.0 10/07/2014 [facility] [place] Eosinophils # 0.2 K/CMM 0.0 - 0.5 10/07/2014 [facility] Upper GI Series w water soluble DX Upper GI Series w water soluble DX GASTROGRAFIN UPPER GI. HISTORY: Feeding intolerance. Prior gastric surgery. It is indicated the patient is "status post gastric band." 59-year-old female with today history of nausea and vomiting and hematemesis COMMENT: A single contrast Gastrografin upper GI was performed. The fluoroscopy time was 1 minute, [address] scan of the abdomen of 02/03/2009 was reviewed. FINDINGS: 1. There is no evidence of obstruction. There is free passage from the esophagus to the stomach to the duodenum. 2. There is a diverticular-like structure involving the fundus of the stomach. It is not clear whether this represents a gastric diverticulum is related to postoperative changes. 3. There is no extravasation. 4. Evaluation of the esophageal and gastric anatomy is limited on this Gastrografin study. Mucosal abnormalities of the esophagus stomach may not be detected. Also, anatomic evaluation of the proximal stomach described above is somewhat limited on this study. Please correlate these findings with endoscopy findings. If further anatomic evaluation is necessary, a double contrast upper GI is suggested. SL: 13 Nirmal Ortega M.D. 10/07/2014 - - Read by: Nirmal Ortega MD Dictated Date/time: 10/07/14 08:58 Electronically Signed by: Nirmal Ortega MD 10/07/14 09:09 FINAL REPORT [facility] [place] PTT 28.2 s 22.9 - 35.8 10/06/2014 8Interpretive Data: Heparin Therapeutic Range: 57 - 92 Seconds [facility] HEMATOLOGY INR 1.04 0.85 - 1.17 10/06/2014 7Interpretive Data: RECOMMENDED RANGES FOR PROTIME INR: 2.0-3.0 for most medical and surgical thromboembolic states. 2.5-3.5 for artificial heart valves and recurrent embolism. INR SHOULD BE USED ONLY FOR PATIENTS ON STABLE ANTICOAGULANT THERAPY. [facility] HEMATOLOGY PT 13.6 s 12.0 - 14.7 10/06/2014 [facility] CARDIAC ENZYMES Troponin-I null 0.00 - 0.40 10/06/2014 [facility] CARDIAC ENZYMES Total CK 53 unit/L 12 - 191 10/06/2014 [facility] CARDIAC ENZYMES CK MB 0.6 ng/mL 0.5 - 3.6 10/06/2014 [facility] CARDIAC ENZYMES CK MB Index 1.1 0.0 - 2.5 10/06/2014 [facility] CHEM PANEL B/C Ratio 21 6 - 25 10/06/2014 [facility] CHEM PANEL Albumin Lvl 3.3 g/dL 3.5 - 5.0 10/06/2014 [facility] CHEM PANEL A/G Ratio 0.7 0.7 - 1.6 10/06/2014 [facility] CHEM PANEL Globulin 4.6 g/dL 2.0 - 4.0 10/06/2014 [facility] CHEM PANEL Bili Total 0.4 mg/dL 0.2 - 1.3 10/06/2014 [facility] CHEM PANEL AST 17 unit/L 0 - 37 10/06/2014 [facility] CHEM PANEL ALT 27 unit/L 0 - 65 10/06/2014 [facility] CHEM PANEL Total Protein 7.9 g/dL 6.4 - 8.4 10/06/2014 [facility] CHEM PANEL Alk Phos 108 unit/L 39 - 136 10/06/2014 [facility] CHEM PANEL Amylase Lvl 24 unit/L 25 - 115 10/06/2014 [facility] CHEM PANEL Lipase Lvl 99 unit/L 73 - 393 10/06/2014 [facility] URINE AND STOOL UA Color Ltyellow 10/06/2014 [facility] URINE AND STOOL UA Urobilinogen <=1.0 mg/dL 0.1 - 1.0 10/06/2014 [facility] URINE AND STOOL UA RBC 3 /HPF 0 - 2 10/06/2014 [facility] URINE AND STOOL UA Bacteria Occasional /HPF None Seen /HPF 10/06/2014 [facility] URINE AND STOOL UA Sq Epi Occasional /LPF Few /LPF 10/06/2014 [facility] URINE AND STOOL UA WBC 2 /HPF 0 - 5 10/06/2014 [facility] URINE AND STOOL UA Mucus Few /LPF None Seen /LPF 10/06/2014 [facility] URINE AND STOOL UA Turbidity Slight *ABN* (10/05/14 8:25 PM) Clear 10/06/2014 [facility] URINE AND STOOL UA Protein Negative mg/dL Negative mg/dL 10/06/2014 [facility] URINE AND STOOL UA Spec Grav 1.035 <=1.030 10/06/2014 [facility] URINE AND STOOL UA pH 6.0 5.0 - 8.0 10/06/2014 [facility] URINE AND STOOL UA Glucose 500 mg/dL Negative mg/dL 10/06/2014 [facility] URINE AND STOOL UA Nitrite Negative (10/05/14 8:25 PM) Negative 10/06/2014 [facility] URINE AND STOOL UA Leuk Est Negative (10/05/14 8:25 PM) Negative 10/06/2014 [facility] URINE AND STOOL UA Blood Negative (10/05/14 8:25 PM) Negative 10/06/2014 [facility] URINE AND STOOL UA Bili Negative *NA* (10/05/14 8:25 PM) Negative 10/06/2014 [facility] URINE AND STOOL UA Ketones Negative mg/dL Negative mg/dL 10/06/2014 [facility] Knee series 3 views DX Knee series 3 views DX Examination: Right knee, 3 views History: Pain and swelling Comparison: None. Findings: Multiple views of the right knee show no acute bony fracture, joint dislocation, or suspicious osseous lesion. Bones are demineralized. 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 There is no significant joint effusion. IMPRESSION: No acute bony abnormality of the right knee. SL: 08/11/2014 - - Read by: Gil Fisher MD Dictated Date/time: 08/11/14 07:49 Electronically Signed by: Gil Fisher MD 08/11/14 07:49 FINAL REPORT [facility] Ribs unilateral DX Ribs unilateral DX Examination: Right rib series, 5 views History: Injury Comparison: None. Findings: Multiple views of the right ribs show no displaced rib fracture. The visualized lungs, pleura, and mediastinum are unremarkable. IMPRESSION: Unremarkable right rib series. SL: 08/11/2014 - - Read by: Gil Fisher MD Dictated Date/time: 08/11/14 07:47 Electronically Signed by: Gil Fisher MD 08/11/14 07:48 FINAL REPORT [facility] Foot series Foot series Examination: Right foot, 3 views History: Pain and swelling Comparison: None. Findings: Multiple views of the right foot show no acute bony fracture or joint dislocation. The bones are diffusely demineralized. Plantar calcaneal enthesophyte is seen. Soft tissues are unremarkable. IMPRESSION: No acute bony abnormality of the right foot. SL: 12 08/11/2014 - - Read by: Gil Fisher MD Dictated Date/time: 08/11/14 07:49 Electronically Signed by: Gil Fisher MD 08/11/14 07:50 FINAL REPORT [facility] CHEM PANEL B/C Ratio 22 6 - 25 04/01/2014 [facility] CHEM PANEL Globulin 4.9 g/dL 2.0 - 4.0 04/01/2014 [facility] CHEM PANEL A/G Ratio 0.6 0.7 - 1.6 04/01/2014 [facility] CHEM PANEL AGAP 11.6 meq/L 10.0 - 20.0 04/01/2014 [facility] CHEM PANEL eGFR 99 mL/min/1.73m2 04/01/2014 1Result Comment: The eGFR is calculated using the CKD-EPI formula. In most young, healthy individuals the eGFR will be >90 mL/min/1.73m2. The eGFR declines with age. An eGFR of 60-89 may be normal in some populations, particularly the elderly, for whom the CKD-EPI formula has not been extensively validated. Use of the eGFR is not recommended in the following populations: Individuals with unstable creatinine concentrations, including patients and those with serious co-morbid conditions. Patients with extremes in muscle mass or diet. The data above are obtained from the National Kidney Disease Education Program (NKDEP) which additionally recommends that when the eGFR is used in patients with extremes of body mass index for purposes of drug dosing, the eGFR should be multiplied by the estimated BMI. [facility] CHEM PANEL BUN 13 mg/dL 7 - 22 04/01/2014 [facility] CHEM PANEL Creatinine Lvl 0.6 mg/dL 0.5 - 1.4 04/01/2014 [facility] CHEM PANEL Calcium Lvl 8.8 mg/dL 8.5 - 10.5 04/01/2014 [facility] CHEM PANEL Total Protein 8.0 g/dL 6.4 - 8.4 04/01/2014 [facility] CHEM PANEL Sodium Lvl 136 meq/L 135 - 145 04/01/2014 [facility] CHEM PANEL Potassium Lvl 3.6 meq/L 3.5 - 5.1 04/01/2014 [facility] CHEM PANEL Chloride Lvl 99 meq/L 95 - 109 04/01/2014 [facility] CHEM PANEL CO2 29 meq/L 24 - 32 04/01/2014 [facility] CHEM PANEL Bili Total 0.5 mg/dL 0.2 - 1.3 04/01/2014 [facility] CHEM PANEL AST 17 unit/L 0 - 37 04/01/2014 [facility] CHEM PANEL Alk Phos 95 unit/L 39 - 136 04/01/2014 [facility] CHEM PANEL Albumin Lvl 3.1 g/dL 3.5 - 5.0 04/01/2014 [facility] CHEM PANEL ALT 25 unit/L 0 - 65 04/01/2014 [facility] CHEM PANEL Glucose Lvl 265 mg/dL 70 - 99 04/01/2014 2Interpretive Data: Adult reference range values reflect the clinical guidelines of the [place] [employer]. [facility] HEMATOLOGY Basophils 0.6 % 0.0 - 1.0 04/01/2014 [facility] HEMATOLOGY Segs 50.3 % 45.0 - 75.0 04/01/2014 [facility] HEMATOLOGY Lymphocytes 36.5 % 20.0 - 40.0 04/01/2014 [facility] HEMATOLOGY Lymphocytes # 1.9 K/CMM 1.0 - 5.5 04/01/2014 [facility] HEMATOLOGY Basophils # 0.0 K/CMM 0.0 - 0.2 04/01/2014 [facility] HEMATOLOGY Eosinophils # 0.1 K/CMM 0.0 - 0.5 04/01/2014 [facility] HEMATOLOGY Monocytes # 0.5 K/CMM 0.0 - 0.8 04/01/2014 [facility] HEMATOLOGY Eosinophils 2.7 % 0.0 - 4.0 04/01/2014 [facility] HEMATOLOGY Monocytes 9.9 % 2.0 - 12.0 04/01/2014 [facility] HEMATOLOGY Segs-Bands # 2.6 K/CMM 1.5 - 8.1 04/01/2014 [facility] HEMATOLOGY WBC 5.2 K/CMM 3.7 - 10.4 04/01/2014 [facility] HEMATOLOGY Hct 38.2 % 36.0 - 48.0 04/01/2014 [facility] HEMATOLOGY MCV 88.6 fL 81.0 - 99.0 04/01/2014 [facility] [place] RBC 4.31 M/CMM 4.20 - 5.40 04/01/2014 [facility] [place] Hgb 13.4 g/dL 12.0 - 16.0 04/01/2014 [facility] [place] RDW 12.6 % 11.5 - 14.5 04/01/2014 [facility] [place] MCH 31.0 pg 27.0 - 31.0 04/01/2014 [facility] [place] MCHC 34.9 g/dL 32.0 - 36.0 04/01/2014 [facility] [place] Platelet 214 K/CMM 133 - 450 04/01/2014 [facility] [place] MPV 10.5 fL 7.4 - 10.4 04/01/2014 [facility] CARDIAC ENZYMES BNP 11 pg/mL <=100 pg/mL 02/04/2014 3Interpretive Data: Elevated results are in line with increasing severity of congestive heart failure. Minor elevations between 100 and 300 may be seen with Myocardial Ischemia, Sodium retaining drugs, and compensated/treated heart failure. [facility] CARDIAC ENZYMES Troponin-I null 0.00 - 0.40 02/04/2014 [facility] CARDIAC ENZYMES CK MB 1.2 ng/mL 0.5 - 3.6 02/04/2014 [facility] CARDIAC ENZYMES Total CK 82 unit/L 12 - 191 02/04/2014 [facility] CARDIAC ENZYMES CK-MB INDEX 1.5 0.0 - 2.5 02/04/2014 [facility] CHEM PANEL A/G Ratio 0.7 0.7 - 1.6 02/04/2014 [facility] CHEM PANEL Globulin 4.7 g/dL 2.0 - 4.0 02/04/2014 [facility] CHEM PANEL AGAP 9.5 meq/L 10.0 - 20.0 02/04/2014 [facility] CHEM PANEL B/C Ratio 31 6 - 25 02/04/2014 [facility] CHEM PANEL eGFR 94 mL/min/1.73m2 02/04/2014 1Result Comment: The eGFR is calculated using the CKD-EPI formula. In most young, healthy individuals the eGFR will be >90 mL/min/1.73m2. The eGFR declines with age. An eGFR of 60-89 may be normal in some populations, particularly the elderly, for whom the CKD-EPI formula has not been extensively validated. Use of the eGFR is not recommended in the following populations: Individuals with unstable creatinine concentrations, including patients and those with serious co-morbid conditions. Patients with extremes in muscle mass or diet. The data above are obtained from the National Kidney Disease Education Program (NKDEP) which additionally recommends that when the eGFR is used in patients with extremes of body mass index for purposes of drug dosing, the eGFR should be multiplied by the estimated BMI. [facility] CHEM PANEL ALANINE AMINOTRANSFERASE 23 unit/L 0 - 65 02/04/2014 [facility] CHEM PANEL Bili Total 0.4 mg/dL 0.2 - 1.3 02/04/2014 [facility] CHEM PANEL Alk Phos 107 unit/L 39 - 136 02/04/2014 [facility] CHEM PANEL ASPARTATE TRANSAMINASE 20 unit/L 0 - 37 02/04/2014 [facility] CHEM PANEL Total Protein 8.1 g/dL 6.4 - 8.4 02/04/2014 [facility] CHEM PANEL Calcium Lvl 8.6 mg/dL 8.5 - 10.5 02/04/2014 [facility] CHEM PANEL Albumin Lvl 3.4 g/dL 3.5 - 5.0 02/04/2014 [facility] CHEM PANEL Chloride Lvl 100 meq/L 95 - 109 02/04/2014 [facility] CHEM PANEL CO2 30 meq/L 24 - 32 02/04/2014 [facility] CHEM PANEL Creatinine Lvl 0.7 mg/dL 0.5 - 1.4 02/04/2014 [facility] CHEM PANEL Potassium Lvl 3.5 meq/L 3.5 - 5.1 02/04/2014 [facility] CHEM PANEL Sodium Lvl 136 meq/L 135 - 145 02/04/2014 [facility] CHEM PANEL BUN 22 mg/dL 7 - 22 02/04/2014 [facility] CHEM PANEL Glucose Lvl 324 mg/dL 70 - 99 02/04/2014 2Interpretive Data: Adult reference range values reflect the clinical guidelines of the [place] [employer]. [facility] HEMATOLOGY aPTT 29.7 s 22.9 - 35.8 02/04/2014 5Interpretive Data: Heparin Therapeutic Range: 57 - 92 Seconds [facility] HEMATOLOGY INR 0.99 0.85 - 1.17 02/04/2014 4Interpretive Data: RECOMMENDED RANGES FOR PROTIME INR: 2.0-3.0 for most medical and surgical thromboembolic states. 2.5-3.5 for artificial heart valves and recurrent embolism. INR SHOULD BE USED ONLY FOR PATIENTS ON STABLE ANTICOAGULANT THERAPY. [facility] HEMATOLOGY PROTIME 13.0 s 12.0 - 14.7 02/04/2014 [facility] [place] MCV 90.5 fL 81.0 - 99.0 02/04/2014 [facility] [place] Hct 38.8 % 36.0 - 48.0 02/04/2014 [facility] [place] MPV 10.1 fL 7.4 - 10.4 02/04/2014 [facility] [place] Platelet 224 K/CMM 133 - 450 02/04/2014 [facility] [place] RDW 13.3 % 11.5 - 14.5 02/04/2014 [facility] [place] MCHC 33.4 g/dL 32.0 - 36.0 02/04/2014 [facility] [place] MCH 30.2 pg 27.0 - 31.0 02/04/2014 [facility] [place] Hgb 12.9 g/dL 12.0 - 16.0 02/04/2014 [facility] [place] RBC X 10x6 4.28 M/CMM 4.20 - 5.40 02/04/2014 [facility] [place] WBC X 10x3 5.8 K/CMM 3.7 - 10.4 02/04/2014 [facility] HEMATOLOGY Eosinophils # 0.1 K/CMM 0.0 - 0.5 02/04/2014 [facility] [place] Basophils # 0.0 K/CMM 0.0 - 0.2 02/04/2014 [facility] [place] Monocytes # 0.5 K/CMM 0.0 - 0.8 02/04/2014 [facility] [place] Segs-Bands # 3.0 K/CMM 1.5 - 8.1 02/04/2014 [facility] [place] Lymphocytes # 2.1 K/CMM 1.0 - 5.5 02/04/2014 [facility] HEMATOLOGY Basophils 0.4 % 0.0 - 1.0 02/04/2014 [facility] HEMATOLOGY Monocytes 8.7 % 2.0 - 12.0 02/04/2014 [facility] HEMATOLOGY Eosinophils 2.0 % 0.0 - 4.0 02/04/2014 [facility] HEMATOLOGY Segs 52.1 % 45.0 - 75.0 02/04/2014 [facility] HEMATOLOGY Lymphocytes 36.8 % 20.0 - 40.0 02/04/2014 [facility] SPECIAL CHEMISTRY Hgb A1C 11.7 % <=5.6 % 02/04/2014 [facility] Chest 1view Chest 1view Portable one view AP chest, Feb 03, 2014 10:28:00 PM CLINICAL HISTORY: Chest pain ; See Clinic Indication TECHNIQUE: Routine AP view of the chest was obtained. COMPARISON: May 2009 FINDINGS: Lungs are clear. No pleural effusion or radiographically detectable pneumothorax is present. Cardiomediastinal silhouette demonstrates mild cardiomegaly. Bones are normal. IMPRESSION: No acute abnormality of the chest. Mild cardiomegaly. SL: 14 02/03/2014 - - Read by: Nona Ha Dictated Date/time: 02/03/14 23:00 Electronically Signed by: Nona Ha MD 02/03/14 23:00 FINAL REPORT [facility] Ankle 3 views Ankle 3 views RIGHT ANKLE SERIES- 3 VIEWS HX: Pain from a fall FINDINGS: Examination the ankle reveal some soft tissue swelling about the lateral malleolus. There is spurring of the posterior calcaneus. No fracture or dislocation is noted. IMPRESSION: Soft tissue swelling laterally. Otherwise negative for acute abnormality. SL: 05/20/2013 - - Read by: Angelo Schwab Dictated Date/time: 05/20/13 19:50 Electronically Signed by: Angelo Schwab MD 05/20/13 19:51 FINAL REPORT [facility] Knee 3 views Knee 3 views RIGHT KNEE SERIES-3 VIEWS HX: Pain from a fall FINDINGS: The current study is compared with previous examination dated 05/09/2009. There is a small knee joint effusion. A hairline lucency in the upper pole of the patella was probably present on the previous examination and is unchanged. This may represent a small vascular groove. On the lateral view there are 2 small cortical defects in the posterior aspect of the femoral condyle. This may represent the medial femoral condyle. Findings are not seen on other projections. IMPRESSION: 1. Suspect osteochondral fracture involving the posterior margin of the femoral condyle, probably medial. 2. Joint effusion. 3. Hairline lucency in the upper patella was present on previous examination and is likely a vascular groove. SL: 05/20/2013 - - Read by: Angelo Schwab Dictated Date/time: 05/20/13 19:43 Electronically Signed by: Angelo Schwab MD 05/20/13 19:47 FINAL REPORT [facility] URINALYSIS UA [place] Yeast Few /HPF *ABN* (12/25/2012 02:30:00) None Seen 12/25/2012 ABN [facility] URINALYSIS UA Bacteria Few /HPF (12/25/2012 02:30:00) None Seen 12/25/2012 Normal [facility] URINALYSIS UA RBC 0-2 /HPF (12/25/2012 02:30:00) 0 - 2 12/25/2012 Normal [facility] URINALYSIS UA WBC 11-20 /HPF *ABN* (12/25/2012 02:30:00) 0 - 5 12/25/2012 [facility] URINALYSIS UA Sq Epi Many /LPF *ABN* (12/25/2012 02:30:00) Few 12/25/2012 [facility] URINALYSIS UA Glucose Negative (12/25/2012 02:30:00) Negative 12/25/2012 Normal [facility] URINALYSIS UA Protein Trace *ABN* (12/25/2012 02:30:00) Negative 12/25/2012 [facility] URINALYSIS UA Ketones Trace *ABN* (12/25/2012 02:30:00) Negative 12/25/2012 [facility] URINALYSIS UA Bili Negative *NA* (12/25/2012 02:30:00) Negative 12/25/2012 NA [facility] URINALYSIS UA Blood Trace *ABN* (12/25/2012 02:30:00) Negative 12/25/2012 [facility] URINALYSIS UA Urobilinogen 0.2 EU/dL 0.1 - 1.0 12/25/2012 Normal [facility] URINALYSIS UA Color Yellow *NA* (12/25/2012 02:30:00) Yellow 12/25/2012 NA [facility] URINALYSIS UA Turbidity Clear (12/25/2012 02:30:00) Clear 12/25/2012 Normal [facility] URINALYSIS UA Spec Grav null <=1.030 12/25/2012 Normal [facility] URINALYSIS UA Leuk Est Trace *ABN* (12/25/2012 02:30:00) Negative 12/25/2012 [facility] URINALYSIS UA Nitrite Negative (12/25/2012 02:30:00) Negative 12/25/2012 Normal [facility] URINALYSIS UA pH 6.0 5.0 - 8.0 12/25/2012 Normal [facility] Microbiology Culture: Urine 12/25/2012 [facility] Vital Signs Vital Sign Value Date Comments Source Respitory Rate 16 07/18/2018 [facility] Heart Rate 74 07/18/2018 [facility] Temperature Oral (F) 98 F 07/18/2018 [facility] Systolic (mm Hg) 136 07/18/2018 [facility] Diastolic (mm Hg) 68 07/18/2018 [facility] Systolic (mm Hg) 136 07/18/2018 [facility] Diastolic (mm Hg) 72 07/18/2018 [facility] Respitory Rate 20 07/18/2018 [facility] Heart Rate 81 07/18/2018 [facility] Temperature Oral (F) 98.0 F 07/18/2018 [facility] Temperature Oral (F) 98.4 F 07/18/2018 [facility] Heart Rate 83 07/18/2018 [facility] Systolic (mm Hg) 106 07/18/2018 [facility] Diastolic (mm Hg) 69 07/18/2018 [facility] Respitory Rate 20 07/18/2018 [facility] BMI Calculated 42.86 07/17/2018 [facility] Weight 120.455 07/17/2018 [facility] Height 167.64 cm 07/17/2018 [facility] Systolic (mm Hg) 155 04/30/2018 [facility] Diastolic (mm Hg) 86 04/30/2018 [facility] Respitory Rate 20 04/30/2018 [facility] Respitory Rate 21 04/30/2018 [facility] Temperature Oral (F) 97.7 F 04/30/2018 [facility] Respitory Rate 17 04/30/2018 [facility] Systolic (mm Hg) 163 04/30/2018 [facility] Diastolic (mm Hg) 74 04/30/2018 [facility] Systolic (mm Hg) 168 04/30/2018 [facility] Diastolic (mm Hg) 79 04/30/2018 [facility] Temperature Oral (F) 97.7 F 04/30/2018 [facility] Temperature Oral (F) 98.2 F 04/30/2018 [facility] Heart Rate 83 04/29/2018 [facility] Heart Rate 81 04/29/2018 [facility] Heart Rate 80 04/29/2018 [facility] Height 167.64 cm 04/27/2018 [facility] BMI Calculated 42.54 04/27/2018 [facility] Weight 119.545 04/27/2018 [facility] Temperature Oral (F) 97.4 F 11/22/2017 [facility] Heart Rate 73 11/22/2017 [facility] Respitory Rate 18 11/22/2017 [facility] Systolic (mm Hg) 179 11/22/2017 [facility] Diastolic (mm Hg) 83 11/22/2017 [facility] Heart Rate 70 11/22/2017 [facility] Respitory Rate 18 11/22/2017 [facility] Temperature Oral (F) 97.5 F 11/22/2017 [facility] Systolic (mm Hg) 159 11/22/2017 [facility] Diastolic (mm Hg) 77 11/22/2017 [facility] Temperature Oral (F) 98.6 F 11/22/2017 [facility] Heart Rate 88 11/22/2017 [facility] Respitory Rate 16 11/22/2017 [facility] Systolic (mm Hg) 145 11/22/2017 [facility] Diastolic (mm Hg) 80 11/22/2017 [facility] BMI Calculated 46.69 11/20/2017 [facility] Weight 131.227 11/20/2017 [facility] Height 167.64 cm 11/20/2017 [facility] Weight 105.455 11/20/2017 [facility] BMI Calculated 37.52 11/20/2017 [facility] Height 167.64 cm 11/20/2017 [facility] Systolic (mm Hg) 168 08/14/2017 [facility] Diastolic (mm Hg) 72 08/14/2017 [facility] Respitory Rate 18 08/14/2017 [facility] Temperature Oral (F) 98.2 F 08/14/2017 [facility] Systolic (mm Hg) 158 08/14/2017 [facility] Diastolic (mm Hg) 69 08/14/2017 [facility] Respitory Rate 18 08/14/2017 [facility] Systolic (mm Hg) 150 08/14/2017 [facility] Diastolic (mm Hg) 98 08/14/2017 [facility] Respitory Rate 18 08/14/2017 [facility] Heart Rate 84 08/14/2017 [facility] Temperature Oral (F) 98.7 F 08/14/2017 [facility] Height 167.64 cm 08/14/2017 [facility] Temperature Oral (F) 97.6 F 07/31/2017 [facility] Respitory Rate 16 07/31/2017 [facility] Heart Rate 81 07/31/2017 [facility] Systolic (mm Hg) 129 07/31/2017 [facility] Diastolic (mm Hg) 80 07/31/2017 [facility] Heart Rate 75 07/31/2017 [facility] Temperature Oral (F) 98.0 F 07/31/2017 [facility] Respitory Rate 17 07/31/2017 [facility] Systolic (mm Hg) 152 07/31/2017 [facility] Diastolic (mm Hg) 85 07/31/2017 [facility] Height 167.64 cm 07/31/2017 [facility] [facility] BMI Calculated 41.89 07/31/2017 [facility] Weight 117.727 07/31/2017 [facility] Systolic (mm Hg) 153 07/31/2017 [facility] Diastolic (mm Hg) 73 07/31/2017 [facility] Respitory Rate 76 07/31/2017 [facility] Temperature Oral (F) 98.0 F 07/31/2017 [facility] Heart Rate 80 07/31/2017 [facility] Weight 111.818 07/30/2017 [facility] BMI Calculated 40.6 07/29/2017 [facility] Weight 114.091 07/29/2017 [facility] Height 167.64 cm 07/29/2017 [facility] BMI Calculated 40.6 07/28/2017 [facility] Height 167.64 cm 07/28/2017 [facility] Height 66 07/28/2017 [facility] Temperature Oral (F) 95.6 F 07/28/2017 [facility] Diastolic (mm Hg) 89 07/28/2017 [facility] Systolic (mm Hg) 146 07/28/2017 [facility] Respitory Rate 16 07/09/2017 [facility] Systolic (mm Hg) 149 07/09/2017 [facility] Diastolic (mm Hg) 88 07/09/2017 [facility] Temperature Oral (F) 98.2 F 07/09/2017 [facility] Weight 113.636 07/09/2017 [facility] Respitory Rate 18 07/09/2017 [facility] Heart Rate 75 07/09/2017 [facility] Systolic (mm Hg) 165 07/09/2017 [facility] Diastolic (mm Hg) 85 07/09/2017 [facility] Heart Rate 74 06/22/2017 [facility] Respitory Rate 18 06/22/2017 [facility] Systolic (mm Hg) 166 06/22/2017 [facility] Diastolic (mm Hg) 80 06/22/2017 [facility] Heart Rate 87 06/22/2017 [facility] Systolic (mm Hg) 159 06/22/2017 [facility] Diastolic (mm Hg) 89 06/22/2017 [facility] Respitory Rate 18 06/22/2017 [facility] Temperature Oral (F) 97.6 F 06/22/2017 [facility] Respitory Rate 18 06/22/2017 [facility] Heart Rate 76 06/22/2017 [facility] Systolic (mm Hg) 173 06/22/2017 [facility] Diastolic (mm Hg) 96 06/22/2017 [facility] Height 66 06/18/2017 [facility] Temperature Oral (F) 95.8 F 06/18/2017 [facility] Diastolic (mm Hg) 63 06/18/2017 [facility] Systolic (mm Hg) 93 06/18/2017 [facility] Temperature Oral (F) 98 F 06/02/2017 [facility] Heart Rate 73 06/02/2017 [facility] Respitory Rate 16 06/02/2017 [facility] Systolic (mm Hg) 132 06/02/2017 [facility] Diastolic (mm Hg) 75 06/02/2017 [facility] Respitory Rate 16 06/02/2017 [facility] Systolic (mm Hg) 148 06/02/2017 [facility] Diastolic (mm Hg) 80 06/02/2017 [facility] Heart Rate 78 06/02/2017 [facility] Temperature Oral (F) 97.6 F 06/02/2017 [facility] Respitory Rate 12 06/02/2017 [facility] Systolic (mm Hg) 172 06/02/2017 [facility] Diastolic (mm Hg) 89 06/02/2017 [facility] Heart Rate 77 06/02/2017 [facility] Temperature Oral (F) 97.9 F 06/02/2017 [facility] Weight 110 05/25/2017 [facility] BMI Calculated 39.14 05/25/2017 [facility] Height 167.64 cm 05/25/2017 [facility] Systolic (mm Hg) 155 05/19/2017 [facility] Diastolic (mm Hg) 80 05/19/2017 [facility] Temperature Oral (F) 98.3 F 05/19/2017 [facility] Heart Rate 88 05/19/2017 [facility] Respitory Rate 18 05/19/2017 [facility] Temperature Oral (F) 98.3 F 05/19/2017 [facility] Systolic (mm Hg) 164 05/19/2017 [facility] Diastolic (mm Hg) 71 05/19/2017 [facility] Diastolic (mm Hg) 60 05/19/2017 [facility] Systolic (mm Hg) 133 05/19/2017 [facility] Respitory Rate 20 05/19/2017 [facility] Heart Rate 87 05/19/2017 [facility] Weight 109.091 05/19/2017 [facility] BMI Calculated 38.82 05/19/2017 [facility] Height 167.64 cm 05/19/2017 [facility] Temperature Oral (F) 98.4 F 05/19/2017 [facility] Heart Rate 92 05/19/2017 [facility] Respitory Rate 18 05/19/2017 [facility] Height 66 05/12/2017 [facility] Temperature Oral (F) 97.6 F 05/12/2017 [facility] Diastolic (mm Hg) 56 05/12/2017 [facility] Systolic (mm Hg) 85 05/12/2017 [facility] Weight 242 02/20/2017 [facility] Height 66 02/20/2017 [facility] Temperature Oral (F) 95.5 F 02/20/2017 [facility] Diastolic (mm Hg) 80 02/20/2017 [facility] Systolic (mm Hg) 115 02/20/2017 [facility] Respitory Rate 18 02/12/2017 [facility] Systolic (mm Hg) 140 02/12/2017 [facility] Diastolic (mm Hg) 92 02/12/2017 [facility] Heart Rate 89 02/12/2017 [facility] Temperature Oral (F) 97.6 F 02/12/2017 [facility] Temperature Oral (F) 98.2 F 02/12/2017 [facility] Respitory Rate 18 02/12/2017 [facility] Heart Rate 92 02/12/2017 [facility] Systolic (mm Hg) 142 02/12/2017 [facility] Diastolic (mm Hg) 87 02/12/2017 [facility] Systolic (mm Hg) 100 02/12/2017 [facility] Diastolic (mm Hg) 64 02/12/2017 [facility] Temperature Oral (F) 97.8 F 02/12/2017 [facility] Heart Rate 96 02/12/2017 [facility] Respitory Rate 18 02/12/2017 [facility] Weight 105.455 02/10/2017 [facility] BMI Calculated 37.52 02/10/2017 [facility] Height 167.64 cm 02/10/2017 [facility] Height 165.1 cm 02/10/2017 [facility] Height 167.64 cm 02/10/2017 [facility] Weight 105.455 02/10/2017 [facility] BMI Calculated 37.52 02/10/2017 [facility] Systolic (mm Hg) 180 01/16/2017 [facility] Diastolic (mm Hg) 88 01/16/2017 [facility] Heart Rate 85 01/16/2017 [facility] Respitory Rate 17 01/16/2017 [facility] Temperature Oral (F) 98.2 F 01/16/2017 [facility] Heart Rate 88 01/16/2017 [facility] Systolic (mm Hg) 201 01/16/2017 [facility] Diastolic (mm Hg) 83 01/16/2017 [facility] Respitory Rate 17 01/16/2017 [facility] BMI Calculated 38.98 01/16/2017 [facility] Weight 109.545 01/16/2017 [facility] Height 167.64 cm 01/16/2017 [facility] Temperature Oral (F) 97.8 F 01/16/2017 [facility] Respitory Rate 18 01/16/2017 [facility] Heart Rate 88 01/16/2017 [facility] Systolic (mm Hg) 184 01/16/2017 [facility] Diastolic (mm Hg) 104 01/16/2017 [facility] Temperature Oral (F) 97.6 F 01/01/2017 [facility] Heart Rate 75 01/01/2017 [facility] Systolic (mm Hg) 155 01/01/2017 [facility] Diastolic (mm Hg) 63 01/01/2017 [facility] Respitory Rate 20 01/01/2017 [facility] Respitory Rate 20 01/01/2017 [facility] Heart Rate 80 01/01/2017 [facility] Systolic (mm Hg) 168 01/01/2017 [facility] Diastolic (mm Hg) 60 01/01/2017 [facility] BMI Calculated 40.44 01/01/2017 [facility] Weight 113.636 01/01/2017 [facility] Height 167.64 cm 01/01/2017 [facility] Heart Rate 91 01/01/2017 [facility] Respitory Rate 20 01/01/2017 [facility] Temperature Oral (F) 97.7 F 01/01/2017 [facility] Systolic (mm Hg) 195 01/01/2017 [facility] Diastolic (mm Hg) 99 01/01/2017 [facility] Height 66 12/30/2016 [facility] Temperature Oral (F) 97.0 F 12/30/2016 [facility] Diastolic (mm Hg) 78 12/30/2016 [facility] Systolic (mm Hg) 142 12/30/2016 [facility] Systolic (mm Hg) 158 12/10/2016 [facility] Diastolic (mm Hg) 81 12/10/2016 [facility] Heart Rate 87 12/10/2016 [facility] Respitory Rate 16 12/10/2016 [facility] Temperature Oral (F) 97.7 F 12/10/2016 [facility] Heart Rate 82 12/10/2016 [facility] Respitory Rate 18 12/10/2016 [facility] Systolic (mm Hg) 168 12/10/2016 [facility] Diastolic (mm Hg) 81 12/10/2016 [facility] Systolic (mm Hg) 164 12/10/2016 [facility] Diastolic (mm Hg) 95 12/10/2016 [facility] Respitory Rate 17 12/10/2016 [facility] Temperature Oral (F) 97.6 F 12/10/2016 [facility] Heart Rate 89 12/10/2016 [facility] Temperature Oral (F) 98.3 F 12/10/2016 [facility] Weight 114.55 12/08/2016 [facility] Height 167.64 cm 12/08/2016 [facility] BMI Calculated 40.76 12/08/2016 [facility] Weight 114.545 12/08/2016 [facility] BMI Calculated 40.76 12/08/2016 [facility] Height 167.64 cm 12/08/2016 [facility] Weight 114.545 12/08/2016 [facility] Weight 259 11/29/2016 [facility] Height 66 11/29/2016 [facility] Temperature Oral (F) 97.5 F 11/29/2016 [facility] Diastolic (mm Hg) 91 11/29/2016 [facility] Systolic (mm Hg) 149 11/29/2016 [facility] Systolic (mm Hg) 159 11/15/2016 [facility] Diastolic (mm Hg) 82 11/15/2016 [facility] Heart Rate 80 11/15/2016 [facility] Respitory Rate 18 11/15/2016 [facility] Temperature Oral (F) 97.9 F 11/15/2016 [facility] Temperature Oral (F) 97.9 F 11/15/2016 [facility] Systolic (mm Hg) 157 11/15/2016 [facility] Diastolic (mm Hg) 85 11/15/2016 [facility] Heart Rate 79 11/15/2016 [facility] Respitory Rate 16 11/15/2016 [facility] Respitory Rate 16 11/15/2016 [facility] Temperature Oral (F) 98.4 F 11/15/2016 [facility] Heart Rate 84 11/15/2016 [facility] Systolic (mm Hg) 146 11/15/2016 [facility] Diastolic (mm Hg) 80 11/15/2016 [facility] Weight 109.091 11/12/2016 [facility] Height 160.02 cm 11/12/2016 [facility] BMI Calculated 42.6 11/12/2016 [facility] Temperature Oral (F) 97.7 F 10/17/2016 [facility] Systolic (mm Hg) 119 10/17/2016 [facility] Diastolic (mm Hg) 52 10/17/2016 [facility] Systolic (mm Hg) 118 10/17/2016 [facility] Diastolic (mm Hg) 54 10/17/2016 [facility] Systolic (mm Hg) 109 10/17/2016 [facility] Diastolic (mm Hg) 46 10/17/2016 [facility] Respitory Rate 18 10/17/2016 [facility] Temperature Oral (F) 97.5 F 10/17/2016 [facility] Respitory Rate 16 10/17/2016 [facility] Respitory Rate 19 10/17/2016 [facility] Temperature Oral (F) 97.7 F 10/17/2016 [facility] Heart Rate 101 10/08/2016 [facility] Heart Rate 100 10/08/2016 [facility] Heart Rate 96 10/08/2016 [facility] Height 165.1 cm 10/02/2016 [facility] BMI Calculated 42.69 10/02/2016 [facility] Weight 116.364 10/02/2016 [facility] Weight 116.364 10/01/2016 [facility] BMI Calculated 42.69 10/01/2016 [facility] Height 165.1 cm 10/01/2016 [facility] Temperature Oral (F) 98 F 09/02/2016 [facility] Heart Rate 78 09/02/2016 [facility] Systolic (mm Hg) 111 09/02/2016 [facility] Diastolic (mm Hg) 60 09/02/2016 [facility] Respitory Rate 17 09/02/2016 [facility] Heart Rate 78 09/02/2016 [facility] Systolic (mm Hg) 128 09/02/2016 [facility] Diastolic (mm Hg) 52 09/02/2016 [facility] Respitory Rate 17 09/02/2016 [facility] Temperature Oral (F) 98 F 09/02/2016 [facility] Systolic (mm Hg) 143 09/02/2016 [facility] Diastolic (mm Hg) 78 09/02/2016 [facility] Respitory Rate 18 09/02/2016 [facility] Heart Rate 76 09/02/2016 [facility] Temperature Oral (F) 98.0 F 09/01/2016 [facility] BMI Calculated 44.19 09/01/2016 [facility] Weight 120.455 09/01/2016 [facility] Height 165.1 cm 09/01/2016 [facility] Heart Rate 78 05/02/2016 [facility] Temperature Oral (F) 98.8 F 05/02/2016 [facility] Respitory Rate 18 05/02/2016 [facility] Systolic (mm Hg) 140 05/02/2016 [facility] Diastolic (mm Hg) 78 05/02/2016 [facility] Systolic (mm Hg) 109 05/02/2016 [facility] Respitory Rate 18 05/02/2016 [facility] Diastolic (mm Hg) 67 05/02/2016 [facility] Heart Rate 82 05/02/2016 [facility] Weight 113.636 05/02/2016 [facility] Height 165.1 cm 05/02/2016 [facility] BMI Calculated 41.69 05/02/2016 [facility] Heart Rate 18 05/02/2016 [facility] Systolic (mm Hg) 170 05/02/2016 [facility] Diastolic (mm Hg) 96 05/02/2016 [facility] Temperature Oral (F) 98.4 F 05/02/2016 [facility] Respitory Rate 97 05/02/2016 [facility] Respitory Rate 20 02/21/2016 [facility] Temperature Oral (F) 97.6 F 02/21/2016 [facility] Heart Rate 75 02/21/2016 [facility] Systolic (mm Hg) 171 02/21/2016 [facility] Diastolic (mm Hg) 98 02/21/2016 [facility] Temperature Oral (F) 97.9 F 02/21/2016 [facility] Systolic (mm Hg) 181 02/21/2016 [facility] Diastolic (mm Hg) 97 02/21/2016 [facility] Respitory Rate 18 02/21/2016 [facility] Heart Rate 77 02/21/2016 [facility] Respitory Rate 17 02/21/2016 [facility] Systolic (mm Hg) 134 02/21/2016 [facility] Diastolic (mm Hg) 71 02/21/2016 [facility] Heart Rate 77 02/21/2016 [facility] Temperature Oral (F) 97.9 F 02/21/2016 [facility] Weight 121.364 02/15/2016 [facility] BMI Calculated 44.52 02/15/2016 [facility] Height 165.1 cm 02/15/2016 [facility] Weight 118.182 02/15/2016 [facility] Height 165.1 cm 02/15/2016 [facility] BMI Calculated 43.36 02/15/2016 [facility] Temperature Oral (F) 98.4 F 09/22/2015 [facility] Respitory Rate 20 09/22/2015 [facility] Heart Rate 88 09/22/2015 [facility] Systolic (mm Hg) 139 09/22/2015 [facility] Diastolic (mm Hg) 80 09/22/2015 [facility] Respitory Rate 20 09/22/2015 [facility] Heart Rate 98 09/22/2015 [facility] Systolic (mm Hg) 143 09/22/2015 [facility] Diastolic (mm Hg) 84 09/22/2015 [facility] Weight 118.636 09/22/2015 [facility] Temperature Oral (F) 98.1 F 09/22/2015 [facility] Systolic (mm Hg) 118 08/10/2015 [facility] Diastolic (mm Hg) 74 08/10/2015 [facility] Temperature Oral (F) 98.4 F 08/10/2015 [facility] Respitory Rate 18 08/10/2015 [facility] Heart Rate 86 08/10/2015 [facility] Temperature Oral (F) 98.3 F 08/09/2015 [facility] Weight 109.091 08/09/2015 [facility] Systolic (mm Hg) 119 08/09/2015 [facility] Diastolic (mm Hg) 75 08/09/2015 [facility] Heart Rate 94 08/09/2015 [facility] Respitory Rate 18 08/09/2015 [facility] Respitory Rate 18 06/06/2015 [facility] Heart Rate 86 06/06/2015 [facility] Temperature Oral (F) 98.1 F 06/06/2015 [facility] Systolic (mm Hg) 119 06/06/2015 [facility] Diastolic (mm Hg) 72 06/06/2015 [facility] Systolic (mm Hg) 125 06/06/2015 [facility] Diastolic (mm Hg) 67 06/06/2015 [facility] Height 165.1 cm 06/06/2015 [facility] Temperature Oral (F) 98 F 06/06/2015 [facility] BMI Calculated 40.02 06/06/2015 [facility] Weight 109.091 06/06/2015 [facility] Respitory Rate 18 06/06/2015 [facility] Heart Rate 91 06/06/2015 [facility] Systolic (mm Hg) 121 06/06/2015 [facility] Diastolic (mm Hg) 75 06/06/2015 [facility] Systolic (mm Hg) 135 05/29/2015 [facility] Diastolic (mm Hg) 63 05/29/2015 [facility] Temperature Oral (F) 97.5 F 05/29/2015 [facility] Respitory Rate 20 05/29/2015 [facility] Heart Rate 80 05/29/2015 [facility] BMI Calculated 39.19 05/28/2015 [facility] Weight 106.818 05/28/2015 [facility] Height 165.1 cm 05/28/2015 [facility] Systolic (mm Hg) 129 05/28/2015 [facility] Diastolic (mm Hg) 86 05/28/2015 [facility] Heart Rate 100 05/28/2015 [facility] Respitory Rate 18 05/28/2015 [facility] Temperature Oral (F) 98.2 F 05/28/2015 [facility] Temperature Oral (F) 98.4 F 04/27/2015 [facility] Respitory Rate 16 04/27/2015 [facility] Systolic (mm Hg) 118 04/27/2015 [facility] Diastolic (mm Hg) 60 04/27/2015 [facility] Heart Rate 89 04/27/2015 [facility] Systolic (mm Hg) 146 04/27/2015 [facility] Diastolic (mm Hg) 86 04/27/2015 [facility] Heart Rate 86 04/27/2015 [facility] Respitory Rate 18 04/27/2015 [facility] Height 165.1 cm 04/27/2015 [facility] Heart Rate 88 04/27/2015 [facility] Systolic (mm Hg) 144 04/27/2015 [facility] Diastolic (mm Hg) 76 04/27/2015 [facility] Respitory Rate 18 04/27/2015 [facility] Temperature Oral (F) 98.0 F 04/27/2015 [facility] Weight 109.091 04/27/2015 [facility] BMI Calculated 40.02 04/27/2015 [facility] Systolic (mm Hg) 100 01/14/2015 [facility] Diastolic (mm Hg) 49 01/14/2015 [facility] Respitory Rate 16 01/14/2015 [facility] Respitory Rate 18 01/14/2015 [facility] Systolic (mm Hg) 107 01/14/2015 [facility] Diastolic (mm Hg) 57 01/14/2015 [facility] Systolic (mm Hg) 165 01/13/2015 [facility] Diastolic (mm Hg) 105 01/13/2015 [facility] Heart Rate 103 01/13/2015 [facility] Respitory Rate 20 01/13/2015 [facility] Temperature Oral (F) 98.5 F 01/13/2015 [facility] Weight 109.091 01/13/2015 [facility] BMI Calculated 40.02 01/13/2015 [facility] Height 165.1 cm 01/13/2015 [facility] Temperature Oral (F) 98.2 F 11/16/2014 [facility] Heart Rate 88 11/16/2014 [facility] Respitory Rate 18 11/16/2014 [facility] Diastolic (mm Hg) 66 11/16/2014 [facility] Systolic (mm Hg) 131 11/16/2014 [facility] Diastolic (mm Hg) 97 11/16/2014 [facility] Systolic (mm Hg) 147 11/16/2014 [facility] Respitory Rate 18 11/16/2014 [facility] Heart Rate 99 11/16/2014 [facility] Temperature Oral (F) 98.2 F 11/16/2014 [facility] BMI Calculated 39.19 11/16/2014 [facility] Weight 106.818 11/16/2014 [facility] Height 165.1 cm 11/16/2014 [facility] Temperature Oral (F) 98.1 F 10/30/2014 [facility] Heart Rate 92 10/30/2014 [facility] Respitory Rate 18 10/30/2014 [facility] Systolic (mm Hg) 131 10/30/2014 [facility] Diastolic (mm Hg) 80 10/30/2014 [facility] Systolic (mm Hg) 144 10/30/2014 [facility] Respitory Rate 18 10/30/2014 [facility] Heart Rate 89 10/30/2014 [facility] Temperature Oral (F) 98 F 10/30/2014 [facility] Diastolic (mm Hg) 79 10/30/2014 [facility] Heart Rate 92 10/30/2014 [facility] Temperature Oral (F) 98.7 F 10/30/2014 [facility] Systolic (mm Hg) 137 10/30/2014 [facility] Respitory Rate 18 10/30/2014 [facility] Diastolic (mm Hg) 81 10/30/2014 [facility] Height 165.1 cm 10/29/2014 [facility] Weight 104.545 10/29/2014 [facility] BMI Calculated 38.35 10/29/2014 [facility] Height 165.1 cm 10/29/2014 [facility] Weight 104.545 10/29/2014 [facility] BMI Calculated 38.35 10/29/2014 [facility] Diastolic (mm Hg) 78 10/28/2014 [facility] Systolic (mm Hg) 128 10/28/2014 [facility] Temperature Oral (F) 98.4 F 10/28/2014 [facility] Respitory Rate 17 10/28/2014 [facility] Heart Rate 92 10/28/2014 [facility] Heart Rate 97 10/28/2014 [facility] Respitory Rate 19 10/28/2014 [facility] Diastolic (mm Hg) 86 10/28/2014 [facility] Systolic (mm Hg) 140 10/28/2014 [facility] Temperature Oral (F) 98.3 F 10/28/2014 [facility] Diastolic (mm Hg) 68 10/28/2014 [facility] Systolic (mm Hg) 155 10/28/2014 [facility] Heart Rate 68 10/28/2014 [facility] Temperature Oral (F) 97.4 F 10/28/2014 [facility] Respitory Rate 18 10/28/2014 [facility] Weight 109.091 10/21/2014 [facility] Height 165.1 cm 10/21/2014 [facility] BMI Calculated 40.02 10/21/2014 [facility] BMI Calculated 42.96 10/21/2014 [facility] Weight 110 10/21/2014 [facility] Height 160.02 cm 10/21/2014 [facility] Heart Rate 89 10/13/2014 [facility] Temperature Oral (F) 98.2 F 10/13/2014 [facility] Systolic (mm Hg) 107 10/13/2014 [facility] Respitory Rate 16 10/13/2014 [facility] Diastolic (mm Hg) 69 10/13/2014 [facility] Respitory Rate 15 10/13/2014 [facility] Diastolic (mm Hg) 73 10/13/2014 [facility] Respitory Rate 16 10/13/2014 [facility] Systolic (mm Hg) 168 10/13/2014 [facility] Heart Rate 80 10/13/2014 [facility] Temperature Oral (F) 97.6 F 10/13/2014 [facility] Diastolic (mm Hg) 67 10/13/2014 [facility] Systolic (mm Hg) 104 10/13/2014 [facility] Heart Rate 75 10/13/2014 [facility] Temperature Oral (F) 98.3 F 10/13/2014 [facility] Weight 109.955 10/10/2014 [facility] Height 165.1 cm 10/06/2014 [facility] Weight 106.818 10/06/2014 [facility] BMI Calculated 39.19 10/06/2014 [facility] Weight 106.818 10/06/2014 [facility] BMI Calculated 39.19 10/06/2014 [facility] Height 165.1 cm 10/06/2014 [facility] Temperature Oral (F) 98 F 08/11/2014 [facility] Respitory Rate 16 08/11/2014 [facility] Heart Rate 87 08/11/2014 [facility] Diastolic (mm Hg) 92 08/11/2014 [facility] Systolic (mm Hg) 145 08/11/2014 [facility] Weight 109.091 08/11/2014 [facility] BMI Calculated 40.02 08/11/2014 [facility] Height 165.1 cm 08/11/2014 [facility] Diastolic (mm Hg) 94 08/11/2014 [facility] Heart Rate 88 08/11/2014 [facility] Temperature Oral (F) 97.5 F 08/11/2014 [facility] Systolic (mm Hg) 148 08/11/2014 [facility] Respitory Rate 18 08/11/2014 [facility] Systolic (mm Hg) 128 06/10/2014 [facility] Respitory Rate 20 06/10/2014 [facility] Diastolic (mm Hg) 84 06/10/2014 [facility] Temperature Oral (F) 98.8 F 06/10/2014 [facility] Heart Rate 89 06/10/2014 [facility] Weight 106.818 06/10/2014 [facility] Systolic (mm Hg) 133 06/10/2014 [facility] Heart Rate 97 06/10/2014 [facility] Diastolic (mm Hg) 76 06/10/2014 [facility] Temperature Oral (F) 98.5 F 06/10/2014 [facility] Respitory Rate 20 06/10/2014 [facility] Respitory Rate 20 04/01/2014 [facility] Heart Rate 68 04/01/2014 [facility] Systolic (mm Hg) 120 04/01/2014 [facility] Diastolic (mm Hg) 50 04/01/2014 [facility] Weight 104.545 04/01/2014 [facility] BMI Calculated 38.35 04/01/2014 [facility] Height 165.1 cm 04/01/2014 [facility] Temperature Oral (F) 98.4 F 04/01/2014 [facility] Systolic (mm Hg) 133 04/01/2014 [facility] Heart Rate 67 04/01/2014 [facility] Diastolic (mm Hg) 85 04/01/2014 [facility] Respitory Rate 18 04/01/2014 [facility] Respitory Rate 18 02/04/2014 [facility] Temperature Oral (F) 98.1 F 02/04/2014 [facility] Heart Rate 72 02/04/2014 [facility] Systolic (mm Hg) 121 02/04/2014 [facility] Diastolic (mm Hg) 66 02/04/2014 [facility] Heart Rate 79 02/04/2014 [facility] Temperature Oral (F) 97.6 F 02/04/2014 [facility] Respitory Rate 18 02/04/2014 [facility] Systolic (mm Hg) 130 02/04/2014 [facility] Diastolic (mm Hg) 72 02/04/2014 [facility] Weight 104.545 02/04/2014 [facility] BMI Calculated 38.35 02/04/2014 [facility] Height 165.1 cm 02/04/2014 [facility] Respitory Rate 20 02/04/2014 [facility] Temperature Oral (F) 97.8 F 02/04/2014 [facility] Diastolic (mm Hg) 85 02/04/2014 [facility] Systolic (mm Hg) 146 02/04/2014 [facility] Heart Rate 91 02/04/2014 [facility] Weight 105.455 05/20/2013 [facility] Height 167.64 cm 05/20/2013 [facility] Height 165.10 cm 12/25/2012 [facility] Weight 113.636 12/25/2012 [facility] Encounters Location Location Details Encounter Type Encounter Number Reason For Visit Attending Provider ADM Date DC Date Status Source [facility] Emergency [id number] TINO CAMERON 12/25/2012 12/25/2012 Active [facility] Emergency [id number] EDDY COLBY 05/20/2013 05/20/2013 Active [facility] [id number] Shilpa Sultana 02/04/2014 02/04/2014 [facility] [id number] Gm Arboleda 04/01/2014 04/01/2014 [facility] [id number] Rafael Cummins 06/10/2014 06/10/2014 [facility] [id number] Varinder Connolly 08/11/2014 08/11/2014 [facility] Inpatient [id number] Keven Pascual 10/05/2014 10/13/2014 [facility] Inpatient [id number] Taso Mougouris 10/21/2014 10/28/2014 [facility] Inpatient [id number] Taso Mougouris 10/29/2014 10/30/2014 [facility] [id number] Chente Martinez 11/16/2014 11/16/2014 [facility] [id number] Geovanna Michaelare 01/13/2015 01/14/2015 [facility] [id number] Tami Tuckerbassam 04/27/2015 04/27/2015 [facility] [id number] Cat Ojeda 05/28/2015 05/29/2015 [facility] [id number] Steven Monteiro 06/06/2015 06/06/2015 [facility] [id number] Stephan Toddjeri 08/09/2015 08/10/2015 [facility] [id number] Steven Monteiro 09/22/2015 09/22/2015 [facility] Outpatient [id number] Chin Nascimbene 02/06/2016 02/07/2016 [facility] Inpatient [id number] Maynard Klein 02/15/2016 02/21/2016 [facility] [id number] Cat Ojeda 05/02/2016 05/02/2016 [facility] Emergency [id number] Steven Monteiro 09/01/2016 09/02/2016 [facility] Inpatient [id number] Sae Coreasurman 10/01/2016 10/17/2016 [facility] Inpatient [id number] Faisal Joseph 11/12/2016 11/16/2016 [facility] Paulo Harden MD, PA Sick Visit [id number] 11/29/2016 11/29/2016 Paulo Harden MD, PA Sick Visit [id number] 11/29/2016 11/29/2016 [facility] [id number] Faisal Joseph 12/08/2016 12/10/2016 [facility] Paulo Harden MD, PA Sick Visit [id number] 12/30/2016 12/30/2016 Paulo Harden [facility] Emergency [id number] Chelsey Ojeda 01/01/2017 01/01/2017 [facility] Emergency [id number] Suzan Snell 01/16/2017 01/16/2017 [facility] Inpatient [id number] Faisalelizabeth Joseph 02/10/2017 02/12/2017 [facility] [place] [facility] Patients [id number] Faisal Jake 03/10/2017 04/09/2017 [facility] Emergency [id number] Chetkashif Webbersuf 05/19/2017 05/19/2017 [facility] Inpatient [id number] Faisal Jake 05/25/2017 06/02/2017 [facility] Emergency [id number] Tuan Escamilla 06/22/2017 06/22/2017 [facility] Emergency [id number] Isidro Phillips Jr 07/09/2017 07/09/2017 [facility] Inpatient [id number] Faisalelizabeth Joseph 07/28/2017 07/31/2017 [facility] Emergency [id number] Shirley Arelis 08/14/2017 08/14/2017 [facility] Inpatient [id number] Faisalelizabeth Joseph 11/20/2017 11/22/2017 [facility]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 [place] Phone Message [id number] 03/23/2018 03/25/2018 [facility] Inpatient [id number] Davon Galvan 04/27/2018 05/01/2018 [facility] Observation [id number] Brody Weems 07/17/2018 07/18/2018 [facility] Procedures Procedure Code Date Perfomer Comments Source Abdominal hysterectomy [id number] [facility] Abdominoplasty and liposuction [id number] [facility] Laparoscopic adjustable gastric banding [id number] [place] Suspension of bladder [id number] [place] Abdominal hysterectomy [id number] [facility] Abdominoplasty and liposuction [id number] [facility] Cholecystectomy [id number] [facility] Laparoscopic adjustable gastric banding [id number] [facility] Suspension of bladder [id number] [facility] Abdominal hysterectomy [id number] [facility] [place] Abdominoplasty and liposuction [id number] [facility] [place] Cholecystectomy [id number] [facility] [place] Laparoscopic adjustable gastric banding [id number] [facility] [place] Suspension of bladder [id number] [facility] [place] Abdominal hysterectomy [id number] [facility] Abdominoplasty and liposuction [id number] [facility] Cholecystectomy [id number] [facility] Laparoscopic adjustable gastric banding [id number] [facility] Suspension of bladder [id number] [facility] Abdominal hysterectomy [id number] [place] Abdominoplasty and liposuction [id number] [place] Cholecystectomy [id number] [place] Laparoscopic adjustable gastric banding [id number] [place] Suspension of bladder [id number] [place] Abdominal hysterectomy [id number] [facility] Abdominoplasty and liposuction [id number] [facility] Cholecystectomy [id number] [facility] Laparoscopic adjustable gastric banding [id number] [facility] Suspension of bladder [id number] [facility]
--- OUTSIDE RECORDS SUMMARY | 2019-03-23 18:35 | XMS REPORT | Summary of Care ---
Author Author [facility] Organization [facility] Address Unknown Phone Unavailable Encounter KENROY Aguayo(JOVANNY) [id number] Date(s): 07/08/17 - 07/09/[address] [facility] [address] [place] [address]- [address] [phone] Discharge Diagnosis: Blurred vision, bilateral Discharge Diagnosis: Generalized weakness Discharge Disposition: Home or Self Care Attending Physician: Isidro Phelps MD Vital Signs Most recent to 1 2 oldest [Reference Range]: Temperature Oral 98.2 DegF [96.4-99.1 DegF] (07/08/17 9:52 PM) Blood Pressure 149/88 mmHg 165/85 mmHg [90-140/60-90 mmHg] *HI* *HI* (07/09/17 12:06 AM) (07/08/17 9:49 PM) Respiratory Rate 16 BRMIN 18 BRMIN [14-20 BRMIN] (07/09/17 12:06 AM) (07/08/17 9:49 PM) Peripheral Pulse 75 bpm Rate [60-100 bpm] (07/08/17 9:49 PM) Weight 113.636 kg (07/08/17 9:49 PM) Problem List Condition Effective Dates Status Health Status Informant Catheterization(Conf Resolved irmed)1 Degenerative disc Resolved disease(Confirmed) DM - Diabetes Active mellitus(Confirmed) Gastroesophageal Active reflux disease(Confirmed) GERD Active (gastroesophageal reflux disease)(Confirmed) GI bleed(Confirmed) Active HTN - Active Hypertension(Confirm ed) Hyperglycemia(Confir Active med) 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 306/10/01 - in urine 4Problem added by Discern Expert. 5Data migrated from [employer] on 07/11/15. 6Problem added by Discern Expert. Allergies, Adverse Reactions, Alerts Substance Reaction Severity Status influenza virus vaccine, Influenza virus vaccine Active inactivated Januvia Active metformin Active Medications No data available for this section Results ELECTROLYTES Most recent to 1 oldest [Reference Range]: Sodium Lvl [135-145 139 mEq/L mEq/L] (07/08/17 10:39 PM) Potassium Lvl 3.7 mEq/L [3.5-5.1 mEq/L] (07/08/17 10:39 PM) Chloride Lvl [95-109 102 mEq/L mEq/L] (07/08/17 10:39 PM) CO2 [24-32 mEq/L] 33 mEq/L *HI* (07/08/17 10:39 PM) AGAP [10.0-20.0 7.7 mEq/L mEq/L] *LOW* (07/08/17 10:39 PM) CHEM PANEL Most recent to 1 oldest [Reference Range]: Creatinine Lvl 0.93 mg/dL [0.50-1.40 mg/dL] (07/08/17 10:39 PM) eGFR 65 mL/min/1.73m2 1 *NA* (07/08/17 10:39 PM) BUN [7-22 mg/dL] 37 mg/dL *HI* (07/08/17 10:39 PM) B/C Ratio [6-25] 40 *HI* (07/08/17 10:39 PM) Glucose Lvl [70-99 196 mg/dL mg/dL] *HI* (07/08/17 10:39 PM) Total Protein 7.3 g/dL [6.4-8.4 g/dL] (07/08/17 10:39 PM) Albumin Lvl [3.5-5.0 2.6 g/dL g/dL] *LOW* (07/08/17 10:39 PM) Globulin [2.7-4.2 4.7 g/dL g/dL] *HI* (07/08/17 10:39 PM) A/G Ratio [0.7-1.6] 0.6 *LOW* (07/08/17 10:39 PM) Calcium Lvl 8.2 mg/dL [8.5-10.5 mg/dL] *LOW* (07/08/17 10:39 PM) ALT [0-65 unit/L] 17 unit/L (07/08/17 10:39 PM) AST [0-37 unit/L] 20 unit/L (07/08/17 10:39 PM) Alk Phos [39-136 148 unit/L unit/L] *HI* (07/08/17 10:39 PM) Bili Total [0.2-1.3 0.2 mg/dL mg/dL] (07/08/17 10:39 PM) 1Result Comment: The eGFR is calculated using [...] from the National Kidney Disease Education Program ( NKDEP) which additionally recommends that when the eGFR is used in patients with extremes of body mass index for purposes of drug dosing, the eGFR should be mul tiplied by the estimated BMI. CARDIAC ENZYMES Most recent to 1 oldest [Reference Range]: Total CK [12-191 52 unit/L unit/L] (07/08/17 10:39 PM) Troponin-I <0.02 ng/mL [0.00-0.40 ng/mL] (07/08/17 10:39 PM) HEMATOLOGY Most recent to 1 oldest [Reference Range]: WBC [3.7-10.4 K/CMM] 5.4 K/CMM (07/08/17 10:39 PM) RBC [4.20-5.40 3.60 M/CMM M/CMM] *LOW* (07/08/17 10:39 PM) Hgb [12.0-16.0 g/dL] 10.8 g/dL *LOW* (07/08/17 10:39 PM) Hct [36.0-48.0 %] 31.9 % *LOW* (07/08/17 10:39 PM) MCV [80.0-98.0 fL] 88.6 fL (07/08/17 10:39 PM) MCH [27.0-31.0 pg] 29.9 pg (07/08/17 10:39 PM) MCHC [32.0-36.0 33.7 g/dL g/dL] (07/08/17 10:39 PM) RDW [11.5-14.5 %] 13.4 % (07/08/17 10:39 PM) Platelet [133-450 223 K/CMM K/CMM] (07/08/17 10:39 PM) MPV [7.4-10.4 fL] 8.7 fL (07/08/17 10:39 PM) Segs [45.0-75.0 %] 51.4 % (07/08/17 10:39 PM) Lymphocytes 31.7 % [20.0-40.0 %] (07/08/17 10:39 PM) Monocytes [2.0-12.0 11.8 % %] (07/08/17 10:39 PM) Eosinophils [0.0-4.0 4.3 % %] *HI* (07/08/17 10:39 PM) Basophils [0.0-1.0 0.8 % %] (07/08/17 10:39 PM) Segs-Bands # 2.8 K/CMM [1.5-8.1 K/CMM] (07/08/17 10:39 PM) Lymphocytes # 1.7 K/CMM [1.0-5.5 K/CMM] (07/08/17 10:39 PM) Monocytes # [0.0-0.8 0.6 K/CMM K/CMM] (07/08/17 10:39 PM) Eosinophils # 0.2 K/CMM [0.0-0.5 K/CMM] (07/08/17 10:39 PM) PT [12.0-14.7 12.8 seconds seconds] (07/08/17 10:39 PM) INR [0.85-1.17] 0.94 (07/08/17 10:39 PM) PTT [22.9-35.8 28.8 seconds seconds] (07/08/17 10:39 PM) Immunizations Not Given Vaccine Date Status Refusal Reason pneumococcal 23-valent vaccine 10/12/16 Not Given Patient Refuses Procedures Procedure Date Related Diagnosis Body Site Abdominal hysterectomy Abdominoplasty and liposuction Cholecystectomy Laparoscopic adjustable gastric banding Suspension of bladder Social History Social History Type Response Substance Abuse Use: None. Alcohol Never Smoking Status Never smoker; Exposure to Tobacco Smoke None; Cigarette Smoking Last 365 Days No; Reg Smoking Cessation Counseling No Assessment and Plan No data available for this section
--- OUTSIDE RECORDS SUMMARY | 2019-03-23 18:35 | XMS REPORT | Summary of Care ---
Author Author [facility] Organization [facility] Address Unknown Phone Unavailable Encounter KENROY Aguayo(JOVANNY) [id number] Date(s): 07/28/17 - 07/31/17 [facility] [address] [place] [address]- Discharge Disposition: Home or Self Care Attending Physician: Faisal Joseph MD Admitting Physician: Faisal Joseph MD Vital Signs 1 2 3 Most recent to oldest [Reference Range]: 167.64 cm (07/31/17 5:43 AM) 167.64 cm (07/29/17 4:24 AM) 167.64 cm (07/28/17 4:31 PM) Height 111.818 kg (07/30/17 11:48 AM) Current Weight 97.6 DegF (07/31/17 10:50 AM) 98.0 DegF (07/31/17 7:54 AM) 98.0 DegF (07/31/17 4:39 AM) Temperature Oral [96.4-99.1 DegF] 129/80 mmHg (07/31/17 10:50 AM) 152/85 mmHg *HI* (07/31/17 7:54 AM) 153/73 mmHg *HI* (07/31/17 4:39 AM) Blood Pressure [90-140/60-90 mmHg] 16 BRMIN (07/31/17 10:50 AM) 17 BRMIN (07/31/17 7:54 AM) 76 BRMIN *HI* (07/31/17 4:39 AM) Respiratory Rate [14-20 BRMIN] 81 bpm (07/31/17 10:50 AM) 75 bpm (07/31/17 7:54 AM) 80 bpm (07/30/17 7:50 PM) Peripheral Pulse Rate [60-100 bpm] 117.727 kg (07/31/17 5:43 AM) 111.818 kg (07/30/17 11:48 AM) 114.091 kg (07/29/17 4:24 AM) Weight 41.89 m2 (07/31/17 5:43 AM) 40.6 m2 (07/29/17 4:24 AM) 40.6 m2 (07/28/17 4:31 PM) Body Mass Index Problem List Condition Effective Dates Status Health Status Informant Catheterization(Conf Resolved irmed)1 CHF (congestive Active heart failure)(Confirmed) Degenerative disc Resolved disease(Confirmed) DM - Diabetes [...] Active VRE(Confirmed)6 Active 1heart 2Data migrated from [employer] on 07/11/15. - in urine 4Problem added by Discern Expert. 5Data migrated from [employer] on 07/11/15. 6Problem added by Discern Expert. Allergies, Adverse Reactions, Alerts Substance Reaction Severity Status influenza virus vaccine, Influenza virus vaccine Active inactivated Januvia Active metformin Active Medications aspirin 81 mg tablet, enteric coated 81 mg, 1 tab, Route: PO, Drug form: ECTAB, Q24H, Dosing Weight 114.091, kg, Star t date: 07/29/17 4:00:00 CDT, Duration: 30 day, Stop date: 08/27/17 9:00:00 CDT Notes: Do not crush or chew.(Same As: Ecotrin) Start Date: 07/29/17 Stop Date: 07/31/17 Status: Discontinued aspirin 81 mg tablet, enteric coated 81 mg, 1 tab, Route: PO, Drug form: ECTAB, Daily, Dosing Weight 114.091, kg, Sta rt date: 07/30/17 9:00:00 CDT, Duration: 30 day, Stop date: 08/28/17 9:00:00 CDT Start Date: 07/30/17 Stop Date: 07/29/17 Status: Deleted carvedilol 3.125 mg, 1 tab, Route: PO, Drug form: TAB, BID, Dosing Weight 114.091, kg, Star t date: 07/29/17 21:00:00 CDT, Duration: 30 day, Stop date: 08/28/17 9:00:00 CDT Notes: Give with food. (Same As: Coreg) Start Date: 07/29/17 Stop Date: 07/31/17 Status: Discontinued Dextrose 50% Syringe 25 gm, 50 mL, Route: IVP, Drug Form: INJ, Dosing Weight 114.091, kg, PRN, PRN Bl ood Glucose Results, Start date: 07/29/17 20:10:00 CDT, Duration: 30 day, Stop d ate: 08/28/17 20:09:00 CDT Start Date: 07/29/17 Stop Date: 07/31/17 Status: Discontinued Dextrose 50% Syringe 12.5 gm, 25 mL, Route: IVP, Drug Form: INJ, Dosing Weight 114.091, kg, PRN, PRN Blood Glucose Results, Start date: 07/29/17 20:10:00 CDT, Duration: 30 day, Stop date: 08/28/17 20:09:00 CDT Start Date: 07/29/17 Stop Date: 07/31/17 Status: Discontinued furosemide 40 mg, 4 mL, Route: IVP, Drug form: INJ, Q8H, Dosing Weight 114.091, kg, Start d ate: 07/29/17 8:00:00 CDT, Duration: 30 day, Stop date: 08/28/17 0:00:00 CDT Notes: (Same as: Lasix) MEDICATION WASTE Product Size: 40 mgProduct Was yahir: ___ mg Start Date: 07/29/17 Stop Date: 07/31/17 Status: Discontinued glucagon 1 mg, Route: IM, Drug form: PDR/INJ, PRN, Dosing Weight 114.091, kg, PRN Blood G lucose Results, Start date: 07/29/17 20:10:00 CDT, Duration: 30 day, Stop date: 08/28/17 20:09:00 CDT Start Date: 07/29/17 Stop Date: 07/31/17 Status: Discontinued heparin 7,500 unit, 1.5 mL, Route: SUB-Q, Drug form: INJ, Q8H, Dosing Weight 114.091, kg , Consider for obese patients, Start date: 07/29/17 8:00:00 CDT, Duration: 30 da y, Stop date: 08/28/17 0:00:00 CDT Notes: porcine heparin Start Date: 07/29/17 Stop Date: 07/31/17 Status: Discontinued Humalog 5 unit, 0.05 mL, Route: SUB-Q, Drug form: SOLN, TID-Before Meals, Start date: 7:30:00 CDT, Duration: 30 day, Stop date: 08/28/17 16:30:00 CDT Notes: Roll in palms of hands gently; Do not shake `vigorously. (Same as: Gayathri ann )"Single Patient Use Only "WASTE: F/P - Black; E - Municipal Trash Bin Stabl e for 28 days at room temperature.Expires in days from Date Start Date: 07/30/17 Stop Date: 07/31/17 Status: Discontinued insulin detemir Route: SUB-Q, Drug form: SOLN, BID, Dosing Weight 114.091, kg, Start date: 07/30 9:00:00 CDT, Duration: 30 day, Stop date: 08/28/17 17:00:00 CDT Start Date: 07/30/17 Stop Date: 07/29/17 Status: Deleted insulin glargine 35 unit, 0.35 mL, Route: SUB-Q, Drug form: SOLN, Bedtime, Start date: 07/29/17 2 1:00:00 CDT, Stop date: 08/27/17 21:00:00 CDT Notes: (Same as: Lanjanetus)Do not hold insulin without contacting prescriberWASTE: F/P - Black; E - Municipal Trash Bin "single patient use only" Start Date: 07/29/17 Stop Date: 07/31/17 Status: Discontinued insulin lispro 4 unit, 0.04 mL, Route: SUB-Q, Drug form: SOLN, Bedtime, Dosing Weight 114.091, kg, PRN Blood Glucose Results, Start date: 07/29/17 20:10:00 CDT, Duration: 30 d ay, Stop date: 08/28/17 20:09:00 CDT Notes: Roll in palms of hands gently; Do not shake `vigorously. (Same as: Humal og )"Single Patient Use Only "WASTE: F/P - Black; E - Municipal Trash Bin Stabl e for 28 days at room temperature.Expires in days from Date Start Date: 07/29/17 Stop Date: 07/31/17 Status: Discontinued insulin lispro 3 unit, 0.03 mL, Route: SUB-Q, Drug form: SOLN, Bedtime, Dosing Weight 114.091, kg, PRN Blood Glucose Results, Start date: 07/29/17 20:10:00 CDT, Duration: 30 d ay, Stop date: 08/28/17 20:09:00 CDT Notes: Roll in palms of hands gently; Do not shake `vigorously. (Same as: Humal og )"Single Patient Use Only "WASTE: F/P - Black; E - Municipal Trash Bin Stabl e for 28 days at room temperature.Expires in days from Date Start Date: 07/29/17 Stop Date: 07/31/17 Status: Discontinued insulin lispro 2 unit, 0.02 mL, Route: SUB-Q, Drug form: SOLN, Bedtime, Dosing Weight 114.091, kg, PRN Blood Glucose Results, Start date: 07/29/17 20:10:00 CDT, Duration: 30 d ay, Stop date: 08/28/17 20:09:00 CDT Notes: Roll in palms of hands gently; Do not shake `vigorously. (Same as: Humal og )"Single Patient Use Only "WASTE: F/P - Black; E - Municipal Trash Bin Stabl e for 28 days at room temperature.Expires in days from Date Start Date: 07/29/17 Stop Date: 07/31/17 Status: Discontinued insulin lispro 1 unit, 0.01 mL, Route: SUB-Q, Drug form: SOLN, Bedtime, Dosing Weight 114.091, kg, PRN Blood Glucose Results, Start date: 07/29/17 20:10:00 CDT, Duration: 30 d ay, Stop date: 08/28/17 20:09:00 CDT Notes: Roll in palms of hands gently; Do not shake `vigorously. (Same as: Gayathri og )"Single Patient Use Only "WASTE: F/P - Black; E - Municipal Trash Bin Stabl e for 28 days at room temperature.Expires in days from Date Start Date: 07/29/17 Stop Date: 07/31/17 Status: Discontinued insulin lispro 10 unit, 0.1 mL, Route: SUB-Q, Drug form: SOLN, TID-Before Meals, Dosing Weight 114.091, kg, PRN Blood Glucose Results, Start date: 07/29/17 20:10:00 CDT, Durat ion: 30 day, Stop date: 08/28/17 20:09:00 CDT Notes: Roll in palms of hands gently; Do not shake `vigorously. (Same as: Gayathri og )"Single Patient Use Only "WASTE: F/P - Black; E - Municipal Trash Bin Stabl e for 28 days at room temperature.Expires in days from Date Start Date: 07/29/17 Stop Date: 07/31/17 Status: Discontinued insulin lispro 6 unit, 0.06 mL, Route: SUB-Q, Drug form: SOLN, TID-Before Meals, Dosing Weight 114.091, kg, PRN Blood Glucose Results, Start date: 07/29/17 20:10:00 CDT, Durat ion: 30 day, Stop date: 08/28/17 20:09:00 CDT Notes: Roll in palms of hands gently; Do not shake `vigorously. (Same as: Gayathri og )"Single Patient Use Only "WASTE: F/P - Black; E - Municipal Trash Bin Stabl e for 28 days at room temperature.Expires in days from Date Start Date: 07/29/17 Stop Date: 07/31/17 Status: Discontinued insulin lispro 4 unit, 0.04 mL, Route: SUB-Q, Drug form: SOLN, TID-Before Meals, Dosing Weight 114.091, kg, PRN Blood Glucose Results, Start date: 07/29/17 20:10:00 CDT, Durat ion: 30 day, Stop date: 08/28/17 20:09:00 CDT Notes: Roll in palms of hands gently; Do not shake `vigorously. (Same as: Gayathri og )"Single Patient Use Only "WASTE: F/P - Black; E - Municipal Trash Bin Stabl e for 28 days at room temperature.Expires in days from Date Start Date: 07/29/17 Stop Date: 07/31/17 Status: Discontinued insulin lispro 2 unit, 0.02 mL, Route: SUB-Q, Drug form: SOLN, TID-Before Meals, Dosing Weight 114.091, kg, PRN Blood Glucose Results, Start date: 07/29/17 20:10:00 CDT, Durat ion: 30 day, Stop date: 08/28/17 20:09:00 CDT Notes: Roll in palms of hands gently; Do not shake `vigorously. (Same as: Gayathri og )"Single Patient Use Only "WASTE: F/P - Black; E - Municipal Trash Bin Stabl e for 28 days at room temperature.Expires in days from Date Start Date: 07/29/17 Stop Date: 07/31/17 Status: Discontinued insulin lispro 8 unit, 0.08 mL, Route: SUB-Q, Drug form: SOLN, TID-Before Meals, Dosing Weight 114.091, kg, PRN Blood Glucose Results, Start date: 07/29/17 20:10:00 CDT, Durat ion: 30 day, Stop date: 08/28/17 20:09:00 CDT Notes: Roll in palms of hands gently; Do not shake `vigorously. (Same as: Gayathri og )"Single Patient Use Only "WASTE: F/P - Black; E - Municipal Trash Bin Stabl e for 28 days at room temperature.Expires in days from Date Start Date: 07/29/17 Stop Date: 07/31/17 Status: Discontinued Insulin regular 5 unit, Route: SUB-Q, TID-Before Meals, Dosing Weight 114.091, kg, Start date: 0 07/30/17 7:30:00 CDT, Duration: 30 day, Stop date: 08/28/17 16:30:00 CDT Start Date: 07/30/17 Stop Date: 07/29/17 Status: Deleted lactulose 10 g/15 mL oral syrup 20 gm, 30 mL, Route: PO, Drug form: SYRP, Daily, Dosing Weight 114.091, kg, PRN Constipation, Start date: 07/29/17 18:38:00 CDT, Duration: 30 day, Stop date: 18:37:00 CDT Notes: (Same as:Chronulac) Start Date: 07/29/17 Stop Date: 07/31/17 Status: Discontinued Lasix 40 mg, 4 mL, Route: IVP, Drug form: INJ, ONCE, Dosing Weight 114.091, kg, Priori ty: STAT, Start date: 07/29/17 0:03:00 CDT, Stop date: 07/29/17 0:03:00 CDT Notes: (Same as: Lasix) MEDICATION WASTE Product Size: 40 mgProduct Was yahir: ___ mg Start Date: 07/29/17 Stop Date: 07/29/17 Status: Completed lisinopril 10 mg, 2 tab, Route: PO, Drug form: TAB, Daily, Dosing Weight 114.091, kg, Start date: 07/30/17 9:00:00 CDT, Duration: 30 day, Stop date: 08/28/17 9:00:00 CDT Notes: (Same as: Prinivil, Zestril) Start Date: 07/30/17 Stop Date: 07/31/17 Status: Discontinued ondansetron 4 mg, 2 mL, Route: IVP, Drug form: INJ, Q8H, Dosing Weight 114.091, kg, PRN Naus ea & Vomiting, Start date: 07/29/17 2:22:00 CDT, Duration: 30 day, Stop date: 08/28/17 2:21:00 CDT Notes: (Same as: Jeremiah) MEDICATION WASTE Product Size: 4 mgProduct Was yahir: ___ mg Start Date: 07/29/17 Stop Date: 07/31/17 Status: Discontinued PARoxetine 20 mg, 2 tab, Route: PO, Drug form: TAB, Daily, Dosing Weight 114.091, kg, Start date: 07/30/17 9:00:00 CDT, Duration: 30 day, Stop date: 08/28/17 9:00:00 CDT Notes: (Same as: Paxil) Start Date: 07/30/17 Stop Date: 07/31/17 Status: Discontinued Pepcid 20 mg oral tablet 20 mg, 1 tab, Route: PO, Drug form: TAB, BID, Dosing Weight 114.091, kg, Start d ate: 07/30/17 9:00:00 CDT, Duration: 30 day, Stop date: 08/28/17 17:00:00 CDT Notes: (Same as: Pepcid) Start Date: 07/30/17 Stop Date: 07/31/17 Status: Discontinued Pepcid 20 mg oral tablet 20 mg=1 tab, PO, BID, # 60 tab, 0 Refill(s) Start Date: 07/29/17 Status: Ordered pravastatin 20 mg, 1 tab, Route: PO, Drug form: TAB, Bedtime, Dosing Weight 114.091, kg, Sta rt date: 07/29/17 21:00:00 CDT, Duration: 30 day, Stop date: 08/27/17 21:00:00 C DT Notes: (Same as: Pravachol) Start Date: 07/29/17 Stop Date: 07/31/17 Status: Discontinued Saline Flush 0.9% 10 ml, Route: IVP, Drug Form: INJ, Dosing Weight 114.091, kg, Q12H, Start date: 07/29/17 9:00:00 CDT, Duration: 30 day, Stop date: 08/27/17 21:00:00 CDT Notes: (Same as: BD Posiflush) Start Date: 07/29/17 Stop Date: 07/31/17 Status: Discontinued Saline Flush 0.9% 10 ml, Route: IVP, Drug Form: INJ, Dosing Weight 114.091, kg, PRN, PRN Line Flus h, Start date: 07/29/17 2:22:00 CDT, Duration: 30 day, Stop date: 08/28/17 2:21: 00 CDT Notes: (Same as: BD Posiflush) Start Date: 07/29/17 Stop Date: 07/31/17 Status: Discontinued Saline Flush 0.9% 10 mL, Route: IVP, Drug Form: INJ, Dosing Weight 113.636, kg, PRN, PRN Line Flus h, Start date: 07/28/17 16:33:00 CDT, Duration: 30 day, Stop date: 08/27/17 16:3 2:00 CDT Notes: (Same as: BD Posiflush) Start Date: 07/28/17 Stop Date: 07/31/17 Status: Discontinued tramadol 50 mg oral tablet 50 mg, 1 tab, Route: PO, Drug form: TAB, Q12H, Dosing Weight 114.091, kg, PRN Pa in Score 6-10, Start date: 07/29/17 18:38:00 CDT, Duration: 30 day, Stop date: 18:37:00 CDT Notes: Not to exceed 400mg/day. (Same As: Ultram) Start Date: 07/29/17 Stop Date: 07/31/17 Status: Discontinued Tylenol 650 mg, PO, Q4H, PRN Headache 1-5, 0 Refill(s) Start Date: 07/29/17 Status: Ordered Results ELECTROLYTES 1 2 3 Most recent to oldest [Reference Range]: 139 mEq/L (07/31/17 7:24 AM) 141 mEq/L (07/30/17 4:15 AM) 143 mEq/L (07/29/17 2:49 AM) Sodium Lvl [135-145 mEq/L] 3.6 mEq/L (07/31/17 7:24 AM) 3.9 mEq/L (07/30/17 4:15 AM) 3.5 mEq/L (07/29/17 2:49 AM) Potassium Lvl [3.5-5.1 mEq/L] 98 mEq/L (07/31/17 7:24 AM) 98 mEq/L (07/30/17 4:15 AM) 103 mEq/L (07/29/17 2:49 AM) Chloride Lvl [95-109 mEq/L] 35 mEq/L *HI* (07/31/17 7:24 AM) 34 mEq/L *HI* (07/30/17 4:15 AM) 32 mEq/L (07/29/17 2:49 AM) CO2 [24-32 mEq/L] 9.6 mEq/L *LOW* (07/31/17 7:24 AM) 12.9 mEq/L (07/30/17 4:15 AM) 11.5 mEq/L (07/29/17 2:49 AM) AGAP [10.0-20.0 mEq/L] CHEM PANEL 1 2 3 Most recent to oldest [Reference Range]: 0.93 mg/dL (07/31/17 7:24 AM) 1.00 mg/dL (07/30/17 4:15 AM) 0.99 mg/dL (07/29/17 2:49 AM) Creatinine Lvl [0.50-1.40 mg/dL] 65 mL/min/1.73m2 1 *NA* (07/31/17 7:24 AM) 60 mL/min/1.73m2 2 *NA* (07/30/17 4:15 AM) 60 mL/min/1.73m2 3 *NA* (07/29/17 2:49 AM) eGFR 35 mg/dL *HI* (07/31/17 7:24 AM) 36 mg/dL *HI* (07/30/17 4:15 AM) 31 mg/dL *HI* (07/29/17 2:49 AM) BUN [7-22 mg/dL] 27 *HI* (07/28/17 6:59 PM) B/C Ratio [6-25] 138 mg/dL *HI* (07/31/17 7:24 AM) 161 mg/dL *HI* (07/30/17 4:15 AM) 86 mg/dL (07/29/17 2:49 AM) Glucose Lvl [70-99 mg/dL] 8.1 g/dL (07/28/17 6:59 PM) Total Protein [6.4-8.4 g/dL] 2.7 g/dL *LOW* (07/28/17 6:59 PM) Albumin Lvl [3.5-5.0 g/dL] 5.4 g/dL *HI* (07/28/17 6:59 PM) Globulin [2.7-4.2 g/dL] 0.5 *LOW* (07/28/17 6:59 PM) A/G Ratio [0.7-1.6] 8.3 mg/dL *LOW* (07/31/17 7:24 AM) 8.1 mg/dL *LOW* (07/30/17 4:15 AM) 8.4 mg/dL *LOW* (07/29/17 2:49 AM) Calcium Lvl [8.5-10.5 mg/dL] 26 unit/L (07/28/17 6:59 PM) ALT [0-65 unit/L] 18 unit/L (07/28/17 6:59 PM) AST [0-37 unit/L] 146 unit/L *HI* (07/28/17 6:59 PM) Alk Phos [39-136 unit/L] 0.2 mg/dL (07/28/17 6:59 PM) Bili Total [0.2-1.3 mg/dL] 1Result Comment: The eGFR is calculated using [...] be mul tiplied by the estimated BMI. 2Result Comment: The eGFR is calculated using [...] be mul tiplied by the estimated BMI. 3Result Comment: The eGFR is calculated using [...] tiplied by the estimated BMI. CARDIAC ENZYMES 1 2 3 Most recent to oldest [Reference Range]: 64 unit/L (07/28/17 6:59 PM) Total CK [12-191 unit/L] 1.4 ng/mL (07/28/17 6:59 PM) CK MB [0.5-3.6 ng/mL] 2.2 (07/28/17 6:59 PM) CK MB Index [0.0-2.5] <0.02 ng/mL (07/29/17 10:23 AM) <0.02 ng/mL (07/29/17 2:49 AM) <0.02 ng/mL (07/28/17 6:59 PM) Troponin-I [0.00-0.40 ng/mL] 81 pg/mL (07/28/17 6:59 PM) BNP [<=100 pg/mL] HEMATOLOGY 1 2 3 Most recent to oldest [Reference Range]: 4.9 K/CMM (07/28/17 6:59 PM) WBC [3.7-10.4 K/CMM] 3.56 M/CMM *LOW* (07/28/17 6:59 PM) RBC [4.20-5.40 M/CMM] 11.0 g/dL *LOW* (07/28/17 6:59 PM) Hgb [12.0-16.0 g/dL] 32.3 % *LOW* (07/28/17 6:59 PM) Hct [36.0-48.0 %] 90.8 fL (07/28/17 6:59 PM) MCV [80.0-98.0 fL] 30.9 pg (07/28/17 6:59 PM) MCH [27.0-31.0 pg] 34.1 g/dL (07/28/17 6:59 PM) MCHC [32.0-36.0 g/dL] 13.7 % (07/28/17 6:59 PM) RDW [11.5-14.5 %] 216 K/CMM (07/28/17 6:59 PM) Platelet [133-450 K/CMM] 8.4 fL (07/28/17 6:59 PM) MPV [7.4-10.4 fL] 63.1 % (07/28/17 6:59 PM) Segs [45.0-75.0 %] 22.1 % (07/28/17 6:59 PM) Lymphocytes [20.0-40.0 %] 9.5 % (07/28/17 6:59 PM) Monocytes [2.0-12.0 %] 4.4 % *HI* (07/28/17 6:59 PM) Eosinophils [0.0-4.0 %] 0.9 % (07/28/17 6:59 PM) Basophils [0.0-1.0 %] 3.1 K/CMM (07/28/17 6:59 PM) Segs-Bands # [1.5-8.1 K/CMM] 1.1 K/CMM (07/28/17 6:59 PM) Lymphocytes # [1.0-5.5 K/CMM] 0.5 K/CMM (07/28/17 6:59 PM) Monocytes # [0.0-0.8 K/CMM] 0.2 K/CMM (07/28/17 6:59 PM) Eosinophils # [0.0-0.5 K/CMM] Immunizations Not Given Vaccine Date Status Refusal [...] Smoking Cessation Counseling No Assessment and Plan Extracted from: Title: Clinical Document Author: Faisal Joseph MD Date: 07/31/17 Hospitalist Discharge Summary Patient was admitted on 07/29/2017 Date of Discharge: 07/31/17 Diagnoses: Heart failure, unspecified (I50.9) Fluid overload, unspecified (E87.70) Acute on chronic diastolic congestive heart failure Dietary noncompliance with fluid and salt Poorly controlled diabetes 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 She failed treatment with aggressive treatment with oral diuretics. Started on IV diuretics. Over the course of stay patient's condition improved. She was discharged home in stable condition of previous home meds after cards evaluation. Time spent on discharge process: 30 Medicine Progress Daily Chief Complaint:sob, edema Subjective & Interval history: Patient seen and examined. Objective: Vital Signs (last 24 hrs) Last Charted Temp Oral97.6 DegF (JUL 31 10:50) Heart Rate Vybuinujxu80 bpm (JUL 31 10:50) Resp Rate 16 BRMIN (JUL 31 10:50) FYL788 mmHg (JUL 31 10:50) DBP80 mmHg (JUL 31 10:50) YvU350 % (JUL 31 10:50) Dmhlxo214.72 kg (JUL 31 05:43) Axlncf737.64 cm (JUL 31:43) BMI41.89 (JUL 31:) Medications and labs reviewed as below. PHYSICAL EXAM: GENERAL: AAO NAD HEENT: NCAT, perrl, eomi NECK: Supple, midline trachea LUNGS: Bibasilar rales, nonlabored breathing CARDIOVASCULAR: S1, S2 normal. No M/G/R. ABDOMEN: Soft, ND, NT. BS + EXTREMITIES: No C/C , generalized edema SKIN: No rashes. MUSCULOSKELETAL: Moving all extremities. Neuro: No new motor or sensory deficits IMPRESSION: Acute on chronic diastolic congestive heart failure Dietary noncompliance with fluid and salt Poorly controlled diabetes mellitus complicated by retinopathy and neuropathy Hypertension PLAN & TREATMENT Continue IV Lasix. Cardiology has been consulted. Monitor electrolytes. Renal function. Currently stable. Cardiac markers are negative. For details see orders. Plan of care discussed with patient and nursing staff Disposition: Home with home health Input/Output RecordInOutBal 4hr Tot 14 500 -486 1324hr Tot 32 [id number] Scheduled Meds (11):PARoxetine, aspirin (aspirin 81 mg tablet, enteric coated), carvedilol, famotidine (Pepcid 20 mg oral tablet), furosemide, heparin, insulin glargine, insulin lispro (Humalog), lisinopril, pravastatin, sodium chloride (Saline Flush 0.9%) Unscheduled Meds: None PRN Meds (17):Dextrose 50% in Water IV (Dextrose 50% Syringe), Dextrose 50% in Water IV (Dextrose 50% Syringe), glucagon, insulin lispro, insulin lispro, insulin lispro, insulin lispro, insulin lispro, insulin lispro, insulin lispro, insulin lispro, insulin lispro, lactulose (lactulose 10 g/15 mL oral syrup), ondansetron, sodium chloride (Saline Flush 0.9%), sodium chloride (Saline Flush 0.9%), tramadol (tramadol 50 mg oral tablet) One Time Meds: None Continuous Infusions: None Labs (Last four charted values) WBC 4.9(SEP 11) Hgb L 11.0(JUL 11) Hct L 32.3(SEP 11) Plt 216(SEP 11) Na 139(SEP 14)141(SEP 13)143(SEP 12)141(JUL 11) K 3.6(JUL 14)3.9(JUL 13)3.5(JUL 12)3.9(JUL 11) CO2 H 35(JUL 14)H 34(JUL 13)32(JUL 12)31(JUL 11) Cl 98(JUL 14)98(JUL 13)103(JUL 12)103(JUL 11) Cr 0.93(JUL 14)1.00(JUL 13)0.99(JUL 12)1.10(JUL 11) BUN H 35(JUL 14)H 36(JUL 13)H 31(JUL 12)H 30(JUL 11) Glucose Random H 138(JUL 14)H 161(JUL 13)86(JUL 12)H 170(JUL 11) Ca L 8.3(JUL 14)L 8.1(JUL 13)L 8.4(JUL 12)8.6(JUL 11) Troponin <0.02(JUL 12)<0.02(JUL 12)<0.02(JUL 11) CK MB 1.4(JUL 28) Total CK 64(JUL 28) Extracted from: Title: CARDIOLOGY Author: Magdi Aldana Date: 07/30/17 Aron SALDAÑA ND CARDIOLOG[facility] CON[facility] MD Dr. Chin Rice [address], [address] [place], [place], [address] Office: [phone] REASON FOR CONSULT: CV management HISTORY OF PRESENT ILLNESS Mrs. Frank is a 61yo female with multiple medical comorbidities including CAD non occlusive, HTN, HLD, uncontrolled DM with a HbA1C >11, GERD, TIA, obesity, proteinuria, who is being admitted for lower extremity edema and dyspnea. She refers that over the last few weeks she has been developing worsening lower extremity edema and generalized weakness for which she finally decided to come to the hospital. In the ER she was found to have leg edema however BNP was within normal range. She is being admitted for further evaluation and management. Currently she is in her room; refers that she feels better but still weak. Denies any current chest pain, shortness of breath, palpitations or syncope. PAST MEDICAL HISTORY CAD non occlusive - normal MIBI 04/01 Diastolic dysfunction stage I Uncontrolled DM HTN HLD TIA GERD GI bleed Proteinuria Non compliance PAST SURGICAL HISTORY Abdominoplasty Hysterectomy Gastric band Cholecystectomy ALLERGIES NKDA FAMILY HISTORY Non contributory HOME MEDS See MAR SOCIAL HISTORY Smoking: Denies EtOH: Denies Other: Denies REVIEW OF SYSTEMS Nervous: Denies Endocrine: Denies Skin: Denies CV: as per HPI Respiratory: as per HPI Hematology/Coagulation: Denies Urinary: Denies Genital: Denies Metabolic: Denies MSK: Denies GI: Denies ID: Denies Endo: Denies Rheum: Denies PHYSICAL EXAM VitalsTmp(F)[id number] 07/30 19:[id number]--- 07/30 15:3798.068009/[id number]--- 07/30 10:[id number]/490887--- 07/30 07:4698.549696/[id number]--- 07/30 04:52----[id number]--- 24 Hr Tmax: 99.0F (37.22c) at 07/30 00:16Vital Signs are the last 5 in the past 48 hours. I&ORecordInOutBal 1324hr Tot 28 1535-1309 09/1224hr Tot 334 2028-0858 GENERAL: In bed, no apparent distress. HEENT: Moist mucous membranes, neck supple, JVD absent, carotid bruit absent CV: RRR, S1/S2 normal, S3/S4 negative. CATHI LUSB. LUNGS: CTA bilaterally, no wheezing, no crackles ABD: Soft, non tender, non distended, no masses or megalies on my exam EXT: Edema 1+ pulses present NEURO: AAOx3, moves 4 extremities, no gross deficit on my exam ECG: Sinus, RBBB Labs (Last four charted values) WBC 4.9(JUL 28) Hgb L 11.0(JUL 28) Hct L 32.3(JUL 28) Plt 216(JUL 28) Na 141(SEP 13)143(SEP 12)141(JUL 11) K 3.9(JUL 13)3.5(SEP 12)3.9(JUL 11) CO2 H 34(JUL 13)32(JUL 12)31(JUL 11) Cl 98(JUL 13)103(JUL 12)103(JUL 11) Cr 1.00(JUL 13)0.99(JUL 12)1.10(JUL 11) BUN H 36(JUL 13)H 31(JUL 12)H 30(JUL 11) Glucose Random H 161(JUL 13)86(JUL 12)H 170(JUL 28) Ca L 8.1(JUL 30)L 8.4(JUL 12)8.6(JUL 28) Troponin <0.02(JUL 29)<0.02(JUL 29)<0.02(JUL 28) CK MB 1.4(JUL 28) Total CK 64(JUL 28) Scheduled Meds (): 07/30/17 PARoxetine 20 mg PO Daily 07/29/17 aspirin (aspirin 81 mg tablet, enteric coated) 81 mg PO Q24H 07/29/17 carvedilol 3.125 mg PO BID 07/30/17 famotidine (Pepcid 20 mg oral tablet) 20 mg PO BID 07/29/17 furosemide 40 mg IVP Q8H 07/29/17 heparin 7,500 unit SUB-Q Q8H 07/29/17 insulin glargine 35 unit SUB-Q Bedtime 0 ml/hr 07/30/17 insulin lispro (Humalog) 5 unit SUB-Q TID-Before Meals 07/30/17 lisinopril 10 mg PO Daily 07/29/17 pravastatin 20 mg PO Bedtime 07/29/17 sodium chloride (Saline Flush 0.9%) 10 ml IVP Q12H PRN Meds (): 07/29/17 Dextrose 50% in Water IV (Dextrose 50% Syringe) 12.5 gm IVP PRN 07/29/17 Dextrose 50% in Water IV (Dextrose 50% Syringe) 25 gm IVP PRN 07/29/17 glucagon 1 mg IM PRN 07/29/17 insulin lispro 2 unit SUB-Q TID-Before Meals 07/29/17 insulin lispro 4 unit SUB-Q TID-Before Meals 07/29/17 insulin lispro 6 unit SUB-Q TID-Before Meals 07/29/17 insulin lispro 8 unit SUB-Q TID-Before Meals 07/29/17 insulin lispro 10 unit SUB-Q TID-Before Meals 07/29/17 insulin lispro 1 unit SUB-Q Bedtime 07/29/17 insulin lispro 2 unit SUB-Q Bedtime 07/29/17 insulin lispro 3 unit SUB-Q Bedtime 07/29/17 insulin lispro 4 unit SUB-Q Bedtime 07/29/17 lactulose (lactulose 10 g/15 mL oral syrup) 20 gm PO Daily 07/29/17 ondansetron 4 mg IVP Q8H 07/28/17 sodium chloride (Saline Flush 0.9%) 10 mL IVP PRN 07/29/17 sodium chloride (Saline Flush 0.9%) 10 ml IVP PRN 07/29/17 tramadol (tramadol 50 mg oral tablet) 50 mg PO Q12H ASSESSMENT & PLAN CHF - Chronic, diastolic, LVEF 55%, stage I diastolic dysfunction - BNP only 81, CXR does not show lung congestion, and physical exam is consistent with this. I don't think she is in acute exacerbation of CHF. - Continue medical Rx optimization and agressive CV risk factor control. Recommend to look for other etiologies of leg edema. CAD - Non occlusive, normal MIBI stress test 04/01 - Continue medical Rx optimization DM - Recheck HbA1C. - [facility] managing PROTEINURIA - UPC ratio on last admission 2.7 - Renal to see? Will continue to follow. Extracted from: Title: Clinical Document Author: Faisal Joseph MD Date: 07/30/17 Medicine Progress Daily Chief Complaint: CHF exacerbation, diabetes, Subjective & Interval history: Patient seen and examined. Patient feels somewhat better today. Currently on IV Lasix Objective: Vital Signs (last 24 hrs) Last Charted Temp Oral99.0 DegF (JUL 30 00:16) Heart Rate [id number] bpm (JUL 30 04:52) Resp Rate 18 BRMIN (JUL 30 04:52) GRU654 mmHg (JUL 30 04:52) DBP67 mmHg (JUL 30 04:52) GnS406 % (JUL 30 04:52) Medications and labs reviewed as below. PHYSICAL EXAM: GENERAL: AAO NAD HEENT: NCAT, perrl, eomi NECK: Supple, midline trachea LUNGS: Bibasilar rales, nonlabored breathing CARDIOVASCULAR: S1, S2 normal. No M/G/R. ABDOMEN: Soft, ND, NT. BS + EXTREMITIES: No C/C , generalized edema SKIN: No rashes. MUSCULOSKELETAL: Moving all extremities. Neuro: No new motor or sensory deficits IMPRESSION: Acute on chronic diastolic congestive heart failure Dietary noncompliance with fluid and salt Poorly controlled diabetes mellitus complicated by retinopathy and neuropathy Hypertension PLAN & TREATMENT Continue IV Lasix. Cardiology has been consulted. Monitor electrolytes. Renal function. Currently stable. Cardiac markers are negative. For details see orders. Plan of care discussed with patient and nursing staff Disposition: Input/Output RecordInOutBal 07/1224hr Tot [id number] 4hr Tot 0 [id number] Scheduled Meds (11):PARoxetine, aspirin (aspirin 81 mg tablet, enteric coated), carvedilol, famotidine (Pepcid 20 mg oral tablet), furosemide, heparin, insulin glargine, insulin lispro (Humalog), lisinopril, pravastatin, sodium chloride (Saline Flush 0.9%) Unscheduled Meds: None PRN Meds (17):Dextrose 50% in Water IV (Dextrose 50% Syringe), Dextrose 50% in Water IV (Dextrose 50% Syringe), glucagon, insulin lispro, insulin lispro, insulin lispro, insulin lispro, insulin lispro, insulin lispro, insulin lispro, insulin lispro, insulin lispro, lactulose (lactulose 10 g/15 mL oral syrup), ondansetron, sodium chloride (Saline Flush 0.9%), sodium chloride (Saline Flush 0.9%), tramadol (tramadol 50 mg oral tablet) One Time Meds (1):(Completed) furosemide (Lasix) Continuous Infusions: None Labs (Last four charted values) WBC 4.9(JUL 28) Hgb L 11.0(JUL 28) Hct L 32.3(JUL 28) Plt 216(JUL 28) Na 141(JUL 13)143(JUL 12)141(JUL 28) K 3.9(JUL 30)3.5(JUL 29)3.9(JUL 28) CO2 H 34(JUL 30)32(SEP 12)31(JUL 28) Cl 98(JUL 30)103(JUL 12)103(JUL 28) Cr 1.00(JUL 30)0.99(JUL 29)1.10(JUL 28) BUN H 36(JUL 30)H 31(JUL 29)H 30(JUL 28) Glucose Random H 161(JUL 30)86(JUL 29)H 170(JUL 28) Ca L 8.1(JUL 30)L 8.4(JUL 29)8.6(JUL 28) Troponin <0.02(JUL 29)<0.02(JUL 29)<0.02(JUL 28) CK MB 1.4(JUL 28) Total CK 64(JUL 28) CHF exacerbation,
--- OUTSIDE RECORDS SUMMARY | 2019-03-23 18:35 | XMS REPORT | Summary of Care ---
Author Author [facility] Organization [facility] Address Unknown Phone Unavailable Encounter HQ Olivier(JOVANNY) [id number] Date(s): 05/19/17 - 05/19/17 [facility] [address] [place] [address]- [phone] Discharge Diagnosis: Edema Discharge Disposition: Home or Self Care Attending Physician: Adolfo Flores DO Vital Signs 1 2 3 Most recent to oldest [Reference Range]: 167.64 cm (05/19/17 10:11 AM) Height 98.3 DegF (05/19/17 3:55 PM) 98.3 DegF (05/19/17 2:39 PM) 98.4 DegF (05/19/17 10:11 AM) Temperature Oral [96.4-99.1 DegF] 155/80 mmHg *HI* (05/19/17 3:55 PM) 164/71 mmHg *HI* (05/19/17 2:39 PM) Blood Pressure [90-140/60-90 mmHg] 133 mmHg (05/19/17 12:39 PM) Systolic Blood Pressure [90-140 mmHg] 60 mmHg (05/19/17 12:39 PM) Diastolic Blood Pressure [60-90 mmHg] 18 BRMIN (05/19/17 3:55 PM) 20 BRMIN (05/19/17 12:39 PM) 18 BRMIN (05/19/17 10:11 AM) Respiratory Rate [14-20 BRMIN] 88 bpm (05/19/17 3:55 PM) 87 bpm (05/19/17 12:39 PM) 92 bpm (05/19/17 10:11 AM) Peripheral Pulse Rate [60-100 bpm] 109.091 kg (05/19/17 10:11 AM) Weight 38.82 m2 (05/19/17 10:11 AM) Body Mass Index Problem List Condition Effective [...] 2Data migrated from [employer] on 07/11/15. - in urine 4Problem added by Discern Expert. 5Data migrated from [employer] on 07/11/15. 6Problem added by Discern Expert. Allergies, Adverse Reactions, Alerts Substance Reaction Severity Status influenza virus vaccine, Influenza virus vaccine Active inactivated Januvia Active metformin Active Medications No data available for this section Results ELECTROLYTES Most recent to 1 oldest [Reference Range]: Sodium Lvl [135-145 140 mEq/L mEq/L] (05/19/17 12:02 PM) Potassium Lvl 3.9 mEq/L [3.5-5.1 mEq/L] (05/19/17 12:02 PM) Chloride Lvl [95-109 103 mEq/L mEq/L] (05/19/17 12:02 PM) CO2 [24-32 mEq/L] 29 mEq/L (05/19/17 12:02 PM) AGAP [10.0-20.0 11.9 mEq/L mEq/L] (05/19/17 12:02 PM) CHEM PANEL Most recent to 1 oldest [Reference Range]: Creatinine Lvl 1.40 mg/dL [0.50-1.40 mg/dL] (05/19/17 12:02 PM) eGFR 40 mL/min/1.73m2 1 *NA* (05/19/17 12:02 PM) BUN [7-22 mg/dL] 30 mg/dL *HI* (05/19/17 12:02 PM) B/C Ratio [6-25] 21 (05/19/17 12:02 PM) Glucose Lvl [70-99 233 mg/dL mg/dL] *HI* (05/19/17 12:02 PM) Total Protein 7.3 g/dL [6.4-8.4 g/dL] (05/19/17 12:02 PM) Albumin Lvl [3.5-5.0 2.7 g/dL g/dL] *LOW* (05/19/17: PM) Globulin [2.7-4.2 4.6 g/dL g/dL] *HI* (05/19/17 12:02 PM) A/G Ratio [0.7-1.6] 0.6 *LOW* (05/19/17: PM) Calcium Lvl 8.6 mg/dL [8.5-10.5 mg/dL] (05/19/17 12:02 PM) ALT [0-65 unit/L] 17 unit/L (05/19/17 12:02 PM) AST [0-37 unit/L] 15 unit/L (05/19/17 12:02 PM) Alk Phos [39-136 146 unit/L unit/L] *HI* (05/19/17 12:02 PM) Bili Total [0.2-1.3 0.2 mg/dL mg/dL] (05/19/17 12:02 PM) 1Result Comment: The eGFR is calculated [...] 1 oldest [Reference Range]: Total CK [12-191 56 unit/L unit/L] (05/19/17 12:02 PM) CK MB [0.5-3.6 1.8 ng/mL ng/mL] (05/19/17 12:02 PM) CK MB Index 3.2 [0.0-2.5] *HI* (05/19/17 12:02 PM) Troponin-I <0.02 ng/mL [0.00-0.40 ng/mL] (05/19/17 12:02 PM) BNP [<=100 pg/mL] 84 pg/mL (05/19/17: PM) HEMATOLOGY Most recent to 1 oldest [Reference Range]: WBC [3.7-10.4 K/CMM] 5.1 K/CMM (05/19/17 12: PM) RBC [4.20-5.40 3.60 M/CMM M/CMM] *LOW* (05/19/17: PM) Hgb [12.0-16.0 g/dL] 10.9 g/dL *LOW* (05/19/17: PM) Hct [36.0-48.0 %] 32.4 % *LOW* (05/19/17 12: PM) MCV [80.0-98.0 fL] 90.2 fL (05/19/17 12: PM) MCH [27.0-31.0 pg] 30.4 pg (05/19/17:02 PM) MCHC [32.0-36.0 33.7 g/dL g/dL] (05/19/17 12: PM) RDW [11.5-14.5 %] 14.2 % (05/19/17 12:02 PM) Platelet [133-450 218 K/CMM K/CMM] (05/19/17 12:02 PM) MPV [7.4-10.4 fL] 9.4 fL (05/19/17 12:02 PM) Segs [45.0-75.0 %] 58.9 % (05/19/17 12:02 PM) Lymphocytes 23.7 % [20.0-40.0 %] (05/19/17: PM) Monocytes [2.0-12.0 13.0 % %] *HI* (7/3/17 12:02 PM) Eosinophils [0.0-4.0 3.4 % %] (05/19/17 12:02 PM) Basophils [0.0-1.0 1.0 % %] (05/19/17 12:02 PM) Segs-Bands # 3.0 K/CMM [1.5-8.1 K/CMM] (05/19/17 12:02 PM) Lymphocytes # 1.2 K/CMM [1.0-5.5 K/CMM] (05/19/17 12:02 PM) Monocytes # [0.0-0.8 0.7 K/CMM K/CMM] (05/19/17 12:02 PM) Eosinophils # 0.2 K/CMM [0.0-0.5 K/CMM] (05/19/17 12:02 PM) Basophils # [0.0-0.2 0.1 K/CMM K/CMM] (05/19/17 12:02 PM) Immunizations Not Given Vaccine Date Status [...]
--- OUTSIDE RECORDS SUMMARY | 2019-03-23 18:35 | XMS REPORT | Summary of Care ---
Author Author [facility] Organization [facility] Address Unknown Phone Unavailable Encounter KENROY Aguayo(JOVANNY) [id number] Date(s): 05/25/17 - 06/02/17 [facility] [id number] [place] [address]- Discharge Disposition: Longterm Facility Attending Physician: Faisal Joseph MD Admitting Physician: Faisal Joseph MD Vital Signs 1 2 3 Most recent to oldest [Reference Range]: 167.64 cm (05/25/17 11:51 AM) Height 98 DegF (06/02/17 3:16 PM) 97.6 DegF (06/02/17 12:11 PM) 97.9 DegF (06/02/17 9:00 AM) Temperature Oral [96.4-99.1 DegF] 132/75 mmHg (06/02/17 3:16 PM) 148/80 mmHg *HI* (06/02/17 12:11 PM) 172/89 mmHg *HI* (06/02/17 9:00 AM) Blood Pressure [90-140/60-90 mmHg] 16 BRMIN (06/02/17 3:16 PM) 16 BRMIN (06/02/17 12:11 PM) 12 BRMIN *LOW* (06/02/17 10:30 AM) Respiratory Rate [14-20 BRMIN] 73 bpm (06/02/17 3:16 PM) 78 bpm (06/02/17 12:11 PM) 77 bpm (06/02/17 9:00 AM) Peripheral Pulse Rate [60-100 bpm] 110 kg (05/25/17 11:51 AM) Weight 39.14 m2 (05/25/17 11:51 AM) Body Mass Index Problem List Condition [...] Active VRE(Confirmed)6 Active 1heart 2Data migrated from REAL SAMURAI on 07/11/15. - in urine 4Problem added by Discern Expert. 5Data migrated from [employer] on 07/11/15. 6Problem added by Discern Expert. Allergies, Adverse Reactions, Alerts Substance Reaction Severity Status influenza virus vaccine, Influenza virus vaccine Active inactivated Januvia Active metformin Active Medications acetaminophen-hydrocodone 325 mg-5 mg oral tablet 1 tab, Route: PO, Drug Form: TAB, Dosing Weight 110, kg, Q6H, PRN Pain Score 6-1 0, Start date: 05/27/17 14:38:00 CDT, Duration: 30 day, Stop date: 06/26/17 14:3 7:00 CDT Notes: (Same as: [place] 325/5) Do not exceed 4gm/day of acetaminophen. Start Date: 05/27/17 Stop Date: 06/02/17 Status: Discontinued albuterol-ipratropium 3 mL, Route: NEB, Drug Form: SOLN, Dosing Weight 110, kg, RQ2H, PRN as needed fo r shortness of breath or wheezing, Start date: 05/25/17 22:44:00 CDT, Duration: 30 day, Stop date: 06/24/17 22:43:00 CDT Notes: (Same as: Duoneb) Start Date: 05/25/17 Stop Date: 06/02/17 Status: Discontinued aspirin 324 mg, 4 tab, Route: PO, Drug form: CHEWTAB, ONCE, Dosing Weight 110, kg, Prior ity: STAT, Start date: 05/25/17 12:30:00 CDT, Stop date: 05/25/17 12:30:00 CDT Notes: Take with food. Start Date: 05/25/17 Stop Date: 05/25/17 Status: Completed aspirin 81 mg tablet, enteric coated 81 mg, 1 tab, Route: PO, Drug form: ECTAB, Daily, Dosing Weight 110, kg, Start d ate: 05/26/17 9:00:00 CDT, Duration: 30 day, Stop date: 06/24/17 9:00:00 CDT Notes: Do not crush or chew.(Same As: Ecotrin) Start Date: 05/26/17 Stop Date: 06/02/17 Status: Discontinued aspirin 81 mg tablet, enteric coated 81 mg=1 tab, PO, Daily, 0 Refill(s) Start Date: 06/02/17 Status: Ordered Ativan 1 mg, 0.5 mL, Route: IVP, Drug form: INJ, ONCE, Dosing Weight 110, kg, PRN Anxie ty, Start date: 05/26/17 17:40:00 CDT Notes: (Same as: Ativan) Start Date: 05/26/17 Stop Date: 05/27/17 Status: Completed Ativan 0.5 mg, 1 tab, Route: PO, Drug form: TAB, ONCE, Dosing Weight 110, kg, PRN as ne eded for anxiety, Start date: 05/27/17 21:12:00 CDT Notes: (Same as: Ativan) Start Date: 05/27/17 Stop Date: 05/28/17 Status: Completed Ativan 0.5 mg, 1 tab, Route: PO, Drug form: TAB, ONCE, Dosing Weight 110, kg, PRN as ne eded for anxiety, Start date: 05/27/17 21:12:00 CDT Notes: (Same as: Ativan) Start Date: 05/27/17 Stop Date: 05/28/17 Status: Completed Ativan 1 mg, 0.5 mL, Route: IVP, Drug form: INJ, ONCE, Dosing Weight 110, kg, PRN Anxie ty, Start date: 05/26/17 0:29:00 CDT Notes: (Same as: Ativan) Start Date: 05/26/17 Stop Date: 05/26/17 Status: Completed bumetanide 1 mg, 1 tab, Route: PO, Drug form: TAB, Daily, Dosing Weight 110, kg, Start date : 05/26/17 9:00:00 CDT, Duration: 30 day, Stop date: 06/24/17 9:00:00 CDT Notes: (Same As: Bumex) Start Date: 05/26/17 Stop Date: 05/27/17 Status: Discontinued bumetanide 1 mg oral tablet 1 mg=1 tab, PO, Daily, # 30 tab, 0 Refill(s) Start Date: 05/25/17 Stop Date: 06/02/17 Status: Discontinued carvedilol 3.125 mg, 1 tab, Route: PO, Drug form: TAB, Q12H, Dosing Weight 110, kg, Start d ate: 05/26/17 9:00:00 CDT, Duration: 30 day, Stop date: 06/24/17 21:00:00 CDT Notes: Give with food. (Same As: Coreg) Start Date: 05/26/17 Stop Date: 06/02/17 Status: Discontinued carvedilol 3.125 mg oral tablet 3.125 mg=1 tab, PO, BID, # 180 tab, 0 Refill(s) Start Date: 05/25/17 Status: Ordered Cipro 500 mg, 1 tab, Route: PO, Drug form: TAB, [id number], Dosing Weight 110, kg, Start date: 05/30/17 10:00:00 CDT, Duration: 10 day, Stop date: 06/08/17 22:00:00 CDT, ABX Indication: Urinary Tract Infection Notes: May interfere w/enteral feedings - Take 1 hr before or 2 hrs after anta cids, dairy pdt & minerals. On empty stomach. Start Date: 05/30/17 Stop Date: 06/02/17 Status: Discontinued ciprofloxacin 500 mg oral tablet 500 mg=1 tab, PO, [id number], 0 Refill(s) Start Date: 06/02/17 Status: Ordered cyanocobalamin 1,000 microgram=1 mL, IM, Daily, daily for 7 days then once a week for 4 weeks t hen once a month., 0 Refill(s) Start Date: 06/02/17 Status: Ordered Dextrose 50% Syringe 12.5 gm, 25 mL, Route: IVP, Drug Form: INJ, Dosing Weight 110, kg, PRN, PRN Bloo d Glucose Results, Start date: 05/25/17 22:51:00 CDT, Duration: 30 day, Stop rhea e: 06/24/17 22:50:00 CDT Start Date: 05/25/17 Stop Date: 06/02/17 Status: Discontinued Dextrose 50% Syringe 25 gm, 50 mL, Route: IVP, Drug Form: INJ, Dosing Weight 110, kg, PRN, PRN Blood Glucose Results, Start date: 05/25/17 22:51:00 CDT, Duration: 30 day, Stop date: 06/24/17 22:50:00 CDT Start Date: 05/25/17 Stop Date: 06/02/17 Status: Discontinued enoxaparin 40 mg, 0.4 mL, Route: SUB-Q, Drug form: INJ, [id number], Dosing Weight 110, kg, St art date: 05/25/17 23:00:00 CDT, Duration: 30 day, Stop date: 06/24/17 21:30:00 CDT Notes: (Same as: Lovenox) Start Date: 05/25/17 Stop Date: 06/02/17 Status: Discontinued glucagon 1 mg, Route: IM, Drug form: PDR/INJ, PRN, Dosing Weight 110, kg, PRN Blood Gluco se Results, Start date: 05/25/17 22:51:00 CDT, Duration: 30 day, Stop date: 07/03 22:50:00 CDT Start Date: 05/25/17 Stop Date: 06/02/17 Status: Discontinued Humalog 20 unit, Route: SUB-Q, TID-Before Meals, Dosing Weight 110, kg, Start date: 05/17 7:30:00 CDT, Duration: 30 day, Stop date: 06/24/17 16:30:00 CDT Start Date: 05/26/17 Stop Date: 05/25/17 Status: Deleted hyoscyamine 0.125 mg, 1 tab, Route: PO, Drug form: TAB, Q4H, Dosing Weight 110, kg, PRN Spas m, Start date: 05/25/17 22:45:00 CDT, Duration: 30 day, Stop date: 06/24/17 22:4 4:00 CDT Notes: (Same as: Levsin) Take 30 min before meal Start Date: 05/25/17 Stop Date: 06/02/17 Status: Discontinued insulin aspart 3 unit, 0.03 mL, Route: SUB-Q, Drug form: SOLN, TID-Before Meals, Dosing Weight 110, kg, PRN Blood Glucose Results, Start date: 05/25/17 22:51:00 CDT, Duration: 30 day, Stop date: 06/24/17 22:50:00 CDT Notes: Roll in palms of hands gently; Do not shake vigorously. (Same as: Manuel Garcia)"single patient use only"WASTE: F/P - Black; E - Municipal Trash Bin Stable f or 28 days at room temperature.Expires in days from Date Start Date: 05/25/17 Stop Date: 06/02/17 Status: Discontinued insulin aspart 9 unit, 0.09 mL, Route: SUB-Q, Drug form: SOLN, TID-Before Meals, Dosing Weight 110, kg, PRN Blood Glucose Results, Start date: 05/25/17 22:51:00 CDT, Duration: 30 day, Stop date: 06/24/17 22:50:00 CDT Notes: Roll in palms of hands gently; Do not shake vigorously. (Same as: Manuel Garcia)"single patient use only"WASTE: F/P - Black; E - Municipal Trash Bin Stable f or 28 days at room temperature.Expires in days from Date Start Date: 05/25/17 Stop Date: 06/02/17 Status: Discontinued insulin aspart 6 unit, 0.06 mL, Route: SUB-Q, Drug form: SOLN, TID-Before Meals, Dosing Weight 110, kg, PRN Blood Glucose Results, Start date: 05/25/17 22:51:00 CDT, Duration: 30 day, Stop date: 06/24/17 22:50:00 CDT Notes: Roll in palms of hands gently; Do not shake vigorously. (Same as: Manuel Garcia)"single patient use only"WASTE: F/P - Black; E - Municipal Trash Bin Stable f or 28 days at room temperature.Expires in days from Date Start Date: 05/25/17 Stop Date: 06/02/17 Status: Discontinued insulin aspart 1 unit, 0.01 mL, Route: SUB-Q, Drug form: SOLN, Bedtime, Dosing Weight 110, kg, PRN Blood Glucose Results, Start date: 05/25/17 22:51:00 CDT, Duration: 30 day, Stop date: 06/24/17 22:50:00 CDT Notes: Roll in palms of hands gently; Do not shake vigorously. (Same as: Manuel Garcia)"single patient use only"WASTE: F/P - Black; E - Municipal Trash Bin Stable f or 28 days at room temperature.Expires in days from Date Start Date: 05/25/17 Stop Date: 06/02/17 Status: Discontinued insulin aspart 15 unit, 0.15 mL, Route: SUB-Q, Drug form: SOLN, TID-Before Meals, Dosing Weight 110, kg, PRN Blood Glucose Results, Start date: 05/25/17 22:51:00 CDT, Duration: 30 day, Stop date: 06/24/17 22:50:00 CDT Notes: Roll in palms of hands gently; Do not shake vigorously. (Same as: Manuel Garcia)"single patient use only"WASTE: F/P - Black; E - Municipal Trash Bin Stable f or 28 days at room temperature.Expires in days from Date Start Date: 05/25/17 Stop Date: 06/02/17 Status: Discontinued insulin aspart 12 unit, 0.12 mL, Route: SUB-Q, Drug form: SOLN, TID-Before Meals, Dosing Weight 110, kg, PRN Blood Glucose Results, Start date: 05/25/17 22:51:00 CDT, Duration: 30 day, Stop date: 06/24/17 22:50:00 CDT Notes: Roll in palms of hands gently; Do not shake vigorously. (Same as: Manuel Garcia)"single patient use only"WASTE: F/P - Black; E - Municipal Trash Bin Stable f or 28 days at room temperature.Expires in days from Date Start Date: 05/25/17 Stop Date: 06/02/17 Status: Discontinued insulin aspart 4 unit, 0.04 mL, Route: SUB-Q, Drug form: SOLN, Bedtime, Dosing Weight 110, kg, PRN Blood Glucose Results, Start date: 05/25/17 22:51:00 CDT, Duration: 30 day, Stop date: 06/24/17 22:50:00 CDT Notes: Roll in palms of hands gently; Do not shake vigorously. (Same as: Manuel Garcia)"single patient use only"WASTE: F/P - Black; E - Municipal Trash Bin Stable f or 28 days at room temperature.Expires in days from Date Start Date: 05/25/17 Stop Date: 06/02/17 Status: Discontinued insulin aspart 2 unit, 0.02 mL, Route: SUB-Q, Drug form: SOLN, Bedtime, Dosing Weight 110, kg, PRN Blood Glucose Results, Start date: 05/25/17 22:51:00 CDT, Duration: 30 day, Stop date: 06/24/17 22:50:00 CDT Notes: Roll in palms of hands gently; Do not shake vigorously. (Same as: Manuel Garcia)"single patient use only"WASTE: F/P - Black; E - Municipal Trash Bin Stable f or 28 days at room temperature.Expires in days from Date Start Date: 05/25/17 Stop Date: 06/02/17 Status: Discontinued insulin aspart 3 unit, 0.03 mL, Route: SUB-Q, Drug form: SOLN, Bedtime, Dosing Weight 110, kg, PRN Blood Glucose Results, Start date: 05/25/17 22:51:00 CDT, Duration: 30 day, Stop date: 06/24/17 22:50:00 CDT Notes: Roll in palms of hands gently; Do not shake vigorously. (Same as: Manuel Garcia)"single patient use only"WASTE: F/P - Black; E - Municipal Trash Bin Stable f or 28 days at room temperature.Expires in days from Date Start Date: 05/25/17 Stop Date: 06/02/17 Status: Discontinued insulin aspart 20 unit, 0.2 mL, Route: SUB-Q, Drug form: SOLN, TID-Before Meals, Start date: 7:30:00 CDT, Duration: 30 day, Stop date: 06/24/17 16:30:00 CDT Notes: Roll in palms of hands gently; Do not shake vigorously. (Same as: Manuel Garcia)"single patient use only"WASTE: F/P - Black; E - Municipal Trash Bin Stable f or 28 days at room temperature.Expires in days from Date Start Date: 05/26/17 Stop Date: 06/02/17 Status: Discontinued insulin aspart 5 unit, SUB-Q, Before Breakfast, 0 Refill(s) Start Date: 06/02/17 Status: Ordered insulin aspart 4 unit, SUB-Q, Bedtime, PRN Blood Glucose Results, 0 Refill(s) Start Date: 06/02/17 Status: Ordered insulin aspart 3 unit, SUB-Q, Bedtime, PRN Blood Glucose Results, 0 Refill(s) Start Date: 06/02/17 Status: Ordered insulin aspart 2 unit, SUB-Q, Bedtime, PRN Blood Glucose Results, 0 Refill(s) Start Date: 06/02/17 Status: Ordered insulin aspart 1 unit, SUB-Q, Bedtime, PRN Blood Glucose Results, 0 Refill(s) Start Date: 06/02/17 Status: Ordered insulin aspart 15 unit, SUB-Q, TID-Before Meals, PRN Blood Glucose Results, 0 Refill(s) Start Date: 06/02/17 Status: Ordered insulin aspart 12 unit, SUB-Q, TID-Before Meals, PRN Blood Glucose Results, 0 Refill(s) Start Date: 06/02/17 Status: Ordered insulin aspart 9 unit, SUB-Q, TID-Before Meals, PRN Blood Glucose Results, 0 Refill(s) Start Date: 06/02/17 Status: Ordered insulin aspart 6 unit, SUB-Q, TID-Before Meals, PRN Blood Glucose Results, 0 Refill(s) Start Date: 06/02/17 Status: Ordered insulin aspart 20 unit, 0.2 mL, Route: SUB-Q, Drug form: SOLN, Before Dinner, Dosing Weight 110 , kg, Start date: 06/02/17 16:30:00 CDT, Stop date: 07/01/17 16:30:00 CDT Notes: Roll in palms of hands gently; Do not shake vigorously. (Same as: Manuel Garcia)"single patient use only"WASTE: F/P - Black; E - Municipal Trash Bin Stable f or 28 days at room temperature.Expires in days from Date Start Date: 06/02/17 Stop Date: 06/02/17 Status: Discontinued insulin aspart 20 unit, 0.2 mL, Route: SUB-Q, Drug form: SOLN, Before Lunch, Dosing Weight 110, kg, Start date: 06/02/17 11:30:00 CDT, Duration: 30 day, Stop date: 07/01/17 11 :30:00 CDT Notes: Roll in palms of hands gently; Do not shake vigorously. (Same as: Manuel Garcia)"single patient use only"WASTE: F/P - Black; E - Municipal Trash Bin Stable f or 28 days at room temperature.Expires in days from Date Start Date: 06/02/17 Stop Date: 06/02/17 Status: Discontinued insulin aspart 3 unit, SUB-Q, TID-Before Meals, PRN Blood Glucose Results, 0 Refill(s) Start Date: 06/02/17 Status: Ordered insulin aspart 5 unit, 0.05 mL, Route: SUB-Q, Drug form: SOLN, Before Breakfast, Dosing Weight 110, kg, Start date: 06/03/17 7:30:00 CDT, Duration: 30 day, Stop date: 07/02/17 7:30:00 CDT Notes: Roll in palms of hands gently; Do not shake vigorously. (Same as: NovoLO G)"single patient use only"WASTE: F/P - Black; E - Municipal Trash Bin Stable f or 28 days at room temperature.Expires in days from Date Start Date: 06/03/17 Stop Date: 06/02/17 Status: Canceled insulin detemir 30 unit, 0.3 mL, Route: SUB-Q, Drug form: SOLN, BID, Dosing Weight 110, kg, Star t date: 05/28/17 21:00:00 CDT, Duration: 30 day, Stop date: 06/27/17 9:00:00 CDT Notes: Same as Nunu not hold insulin without contacting prescriberWASTE: F/ P - Black; E - Municipal Trash Bin "single patient use only" Start Date: 05/28/17 Stop Date: 06/02/17 Status: Discontinued insulin detemir 100 units/mL subcutaneous solution 30 unit, SUB-Q, BID, 0 Refill(s) Start Date: 06/02/17 Status: Ordered labetalol 10 mg, 2 mL, Route: IVP, Drug form: INJ, Q10Min, Dosing Weight 110, kg, PRN Hype rtension, For SBP > 180 mmHg and/or DBP > 105 mmHg, Priority: Routine, Start date: 05/26/17 2:22:00 CDT, Duration: 30 day, Stop date: 06/25/17 2:21:00 CDT Notes: (Same as: Normodyne Trandate)Push over 2 minutes Give bolus over 2-3 mi nutes. Start Date: 05/26/17 Stop Date: 06/02/17 Status: Discontinued lactulose 10 g/15 mL oral syrup 20 gm, 30 mL, Route: PO, Drug form: SYRP, Daily, Dosing Weight 110, kg, PRN Cons tipation, Start date: 05/25/17 22:45:00 CDT, Duration: 30 day, Stop date: 22:44:00 CDT Notes: (Same as:Chronulac) Start Date: 05/25/17 Stop Date: 06/02/17 Status: Discontinued lactulose 10 g/15 mL oral syrup 20 gm=30 mL, PO, Daily, PRN Constipation, 0 Refill(s) Start Date: 06/02/17 Status: Ordered Lasix 40 mg, 4 mL, Route: IVP, Drug form: INJ, Daily, Dosing Weight 110, kg, Start rhea e: 05/27/17 16:00:00 CDT, Duration: 30 day, Stop date: 06/26/17 9:00:00 CDT Notes: (Same as: Lasix) MEDICATION WASTE Product Size: 40 mgProduct Was yahir: ___ mg Start Date: 05/27/17 Stop Date: 06/02/17 Status: Discontinued Levemir 40 unit, 0.4 mL, Route: SUB-Q, Drug form: SOLN, QAM, Dosing Weight 110, kg, Star t date: 05/28/17 10:30:00 CDT, Duration: 30 day, Stop date: 06/27/17 9:00:00 CDT Notes: Same as LevemirDo not hold insulin without contacting prescriberWASTE: F/ P - Black; E - Municipal Trash Bin "single patient use only" Start Date: 05/28/17 Stop Date: 05/28/17 Status: Discontinued Levemir 60 unit, 0.6 mL, Route: SUB-Q, Drug form: SOLN, ONCE, Dosing Weight 110, kg, Sta rt date: 05/27/17 8:55:00 CDT, Stop date: 05/27/17 8:55:00 CDT Notes: Same as LevemirDo not hold insulin without contacting prescriberWASTE: F/ P - Black; E - Municipal Trash Bin "single patient use only" Start Date: 05/27/17 Stop Date: 05/27/17 Status: Completed Levemir FlexPen 15 unit, 0.15 mL, Route: SUB-Q, Drug form: SOLN, Bedtime, Dosing Weight 110, kg, Start date: 05/28/17 21:00:00 CDT, Duration: 30 day, Stop date: 06/26/17 21:00: 00 CDT Notes: Same as LevemirDo not hold insulin without contacting prescriberWASTE: F/ P - Black; E - Municipal Trash Bin "single patient use only" Start Date: 05/28/17 Stop Date: 05/28/17 Status: Canceled lisinopril 10 mg, 2 tab, Route: PO, Drug form: TAB, Daily, Dosing Weight 110, kg, Start rhea e: 05/27/17 9:00:00 CDT, Duration: 30 day, Stop date: 06/25/17 9:00:00 CDT Notes: (Same as: Prinivil Zestril) Start Date: 05/27/17 Stop Date: 06/02/17 Status: Discontinued lisinopril 30 mg, 1.5 tab, Route: PO, Drug form: TAB, Daily, Dosing Weight 110, kg, Start d ate: 05/26/17 9:00:00 CDT, Duration: 30 day, Stop date: 06/24/17 9:00:00 CDT Notes: (Same as: Prinivil, Zestril) Start Date: 05/26/17 Stop Date: 05/26/17 Status: Discontinued lisinopril 5 mg oral tablet 10 mg=2 tab, PO, Daily, 0 Refill(s) Start Date: 06/02/17 Status: Ordered PARoxetine 20 mg, 1 tab, Route: PO, Drug form: TAB, Daily, Dosing Weight 110, kg, Start rhea e: 05/26/17 9:00:00 CDT, Duration: 30 day, Stop date: 06/24/17 9:00:00 CDT Notes: (Same as: Paxil) Start Date: 05/26/17 Stop Date: 06/02/17 Status: Discontinued PARoxetine 20 mg oral tablet 20 mg=1 tab, PO, Daily, # 30 tab, 0 Refill(s) Start Date: 05/25/17 Status: Ordered pravastatin 20 mg oral tablet 20 mg=1 tab, PO, Bedtime, # 30 tab, 0 Refill(s), Pharmacy: [facility] [id number] Start Date: 06/02/17 Status: Ordered Saline Flush 0.9% 10 ml, Route: IVP, Drug Form: INJ, Dosing Weight 110, kg, Q12H, Start date: 05/17 9:00:00 CDT, Duration: 30 day, Stop date: 06/24/17 21:00:00 CDT Notes: (Same as: BD Posiflush) Start Date: 05/26/17 Stop Date: 06/02/17 Status: Discontinued Saline Flush 0.9% 10 ml, Route: IVP, Drug Form: INJ, Dosing Weight 110, kg, PRN, PRN Line Flush, S tart date: 05/26/17 2:22:00 CDT, Duration: 30 day, Stop date: 06/25/17 2:21:00 C DT Notes: (Same as: BD Posiflush) Start Date: 05/26/17 Stop Date: 06/02/17 Status: Discontinued Saline Flush 0.9% 10 mL, Route: IVP, Drug Form: INJ, Dosing Weight 110, kg, PRN, PRN Line Flush, S tart date: 05/25/17 12:30:00 CDT, Duration: 30 day, Stop date: 06/24/17 12:29:00 CDT Notes: preservative free. Start Date: 05/25/17 Stop Date: 05/27/17 Status: Discontinued tramadol 50 mg oral tablet 50 mg, 1 tab, Route: PO, Drug form: TAB, Q12H, Dosing Weight 110, kg, PRN Pain S core 6-10, Start date: 05/25/17 22:45:00 CDT, Duration: 30 day, Stop date: 06/24 22:44:00 CDT Notes: Not to exceed 400mg/day. (Same As: Ultram) Start Date: 05/25/17 Stop Date: 06/02/17 Status: Discontinued Vitamin B12 1,000 microgram, 1 mL, Route: IM, Drug form: INJ, Daily, Dosing Weight 110, kg, Start date: 06/02/17 9:00:00 CDT, Duration: 30 day, Stop date: 07/01/17 9:00:00 CDT Notes: (Same As: Vitamin B12) Start Date: 06/02/17 Stop Date: 06/02/17 Status: Discontinued Results ELECTROLYTES 1 2 3 Most recent to oldest [Reference Range]: 140 mEq/L (06/02/17 4:15 AM) 138 mEq/L (05/29/17 11:49 AM) 139 mEq/L (05/26/17 6:44 AM) Sodium Lvl [135-145 mEq/L] 4.1 mEq/L (06/02/17 4:15 AM) 4.0 mEq/L (05/29/17 11:49 AM) 4.4 mEq/L (05/26/17 6:44 AM) Potassium Lvl [3.5-5.1 mEq/L] 101 mEq/L (06/02/17 4:15 AM) 96 mEq/L (05/29/17 11:49 AM) 100 mEq/L (05/26/17 6:44 AM) Chloride Lvl [95-109 mEq/L] 33 mEq/L *HI* (06/02/17 4:15 AM) 35 mEq/L *HI* (05/29/17 11:49 AM) 32 mEq/L (05/26/17 6:44 AM) CO2 [24-32 mEq/L] 10.1 mEq/L (06/02/17 4:15 AM) 11.0 mEq/L (05/29/17 11:49 AM) 11.4 mEq/L (05/26/17 6:44 AM) AGAP [10.0-20.0 mEq/L] CHEM PANEL 1 2 3 Most recent to oldest [Reference Range]: 1.10 mg/dL (06/02/17 4:15 AM) 1.10 mg/dL (05/29/17 11:49 AM) 0.97 mg/dL (05/26/17 6:44 AM) Creatinine Lvl [0.50-1.40 mg/dL] 54 mL/min/1.73m2 1 *NA* (06/02/17 4:15 AM) 54 mL/min/1.73m2 2 *NA* (05/29/17 11:49 AM) 62 mL/min/1.73m2 3 *NA* (05/26/17 6:44 AM) eGFR 50 mg/dL *HI* (06/02/17 4:15 AM) 35 mg/dL *HI* (05/29/17 11:49 AM) 36 mg/dL *HI* (05/26/17 6:44 AM) BUN [7-22 mg/dL] 37 *HI* (05/26/17 6:44 AM) B/C Ratio [6-25] 154 mg/dL *HI* (06/02/17 4:15 AM) 178 mg/dL *HI* (05/29/17 11:49 AM) 378 mg/dL *HI* (05/26/17 6:44 AM) Glucose Lvl [70-99 mg/dL] 6.5 g/dL (05/26/17 6:44 AM) Total Protein [6.4-8.4 g/dL] 2.5 g/dL *LOW* (05/26/17 6:44 AM) Albumin Lvl [3.5-5.0 g/dL] 4.0 g/dL (05/26/17 6:44 AM) Globulin [2.7-4.2 g/dL] 0.6 *LOW* (05/26/17 6:44 AM) A/G Ratio [0.7-1.6] 8.6 mg/dL (06/02/17 4:15 AM) 8.7 mg/dL (05/29/17 11:49 AM) 8.5 mg/dL (05/26/17 6:44 AM) Calcium Lvl [8.5-10.5 mg/dL] 2.0 mg/dL (05/25/17 1:17 PM) Magnesium Lvl [1.8-2.4 mg/dL] 18 unit/L (05/26/17 6:44 AM) ALT [0-65 unit/L] 15 unit/L (05/26/17 6:44 AM) AST [0-37 unit/L] 117 unit/L (05/26/17 6:44 AM) Alk Phos [39-136 unit/L] 0.7 mg/dL (05/26/17 6:44 AM) Bili Total [0.2-1.3 mg/dL] 110.8 nMol/L 4 *NA* (05/26/17 6:44 AM) Vitamin B1 [66.5-200.0 nMol/L] 1Result Comment: The eGFR is calculated using [...] be mul tiplied by the estimated BMI. 4Result Comment: Performed At: [facility] [address] [place] [address] [id number] Margaret Mclaughlin MD Ph:[phone] CARDIAC ENZYMES 1 2 3 Most recent to oldest [Reference Range]: 43 unit/L (05/26/17 11:00 AM) 48 unit/L (05/25/17 1:17 PM) Total CK [12-191 unit/L] 1.3 ng/mL (05/25/17 1:17 PM) CK MB [0.5-3.6 ng/mL] 2.7 *HI* (05/25/17 1:17 PM) CK MB Index [0.0-2.5] <0.02 ng/mL (05/26/17 11:00 AM) <0.02 ng/mL (05/25/17 1:17 PM) Troponin-I [0.00-0.40 ng/mL] LIPIDS 1 2 3 Most recent to oldest [Reference Range]: 3.08 *LOW* (05/26/17 6:44 AM) CHD Risk [3.90-5.80] 163 mg/dL (05/26/17 6:44 AM) Chol [<=199 mg/dL] 186 mg/dL *HI* (05/26/17 6:44 AM) Trig [<=149 mg/dL] 53 mg/dL *LOW* (05/26/17 6:44 AM) HDL [>=61 mg/dL] 73 mg/dL (05/26/17 6:44 AM) LDL (Calculated) [<=99 mg/dL] 37 *NA* (05/26/17 6:44 AM) VLDL SPECIAL CHEMISTRY 1 2 3 Most recent to oldest [Reference Range]: 11.0 % *HI* (05/26/17 6:44 AM) Hgb A1C [<=5.6 %] ANEMIA STUDY 1 2 3 Most recent to oldest [Reference Range]: 368 pg/mL (05/26/17 6:44 AM) Vitamin B12 Lvl [254-1320 pg/mL] DRUG SCREEN 1 2 3 Most recent to oldest [Reference Range]: Negative *NA* (05/28/17 10:36 AM) U Amph Scr [Negative] Negative *NA* (05/28/17 10:36 AM) U Lenore Scr [Negative] Negative *NA* (05/28/17 10:36 AM) U Benzodia Scr [Negative] Negative *NA* (05/28/17 10:36 AM) U Cocaine Scr [Negative] Negative *NA* (05/28/17 10:36 AM) U Opiate Scr [Negative] Negative *NA* (05/28/17 10:36 AM) U Phencyc Scr [Negative] Negative *NA* (05/28/17 10:36 AM) U Cannab Scr [Negative] See Note *NA* (05/28/17 10:36 AM) UDS Note URINE CHEM 1 2 3 Most recent to oldest [Reference Range]: <13.00 mg/dL *NA* (05/28/17 10:26 AM) U Creatinine 36.0 mg/dL *NA* (05/28/17 10:26 AM) U Protein See Note 1 (05/28/17 10:26 AM) U Prot/Creat 1Result Comment: U Protein/U Creatinine ratio can not be calculated because the U Creatinine result is <13.00 05/28/2017 13:40 ka URINE AND STOOL 1 2 3 Most recent to oldest [Reference Range]: Slight *ABN* (05/28/17 10:36 AM) Marked *ABN* (05/25/17 3:03 PM) UA Turbidity [Clear] Ltyellow *NA* (05/28/17 10:36 AM) UA Color Yellow *NA* (05/25/17 3:03 PM) UA Color [Yellow] 6.0 (05/28/17 10:36 AM) 5.0 (05/25/17 3:03 PM) UA pH [5.0-8.0] 1.006 (05/28/17 10:36 AM) 1.012 (05/25/17 3:03 PM) UA Spec Grav [<=1.030] Negative mg/dL *NA* (05/28/17 10:36 AM) 50 mg/dL *ABN* (05/25/17 3:03 PM) UA Glucose [Negative mg/dL] Moderate *ABN* (05/28/17 10:36 AM) Moderate *ABN* (05/25/17 3:03 PM) UA Blood [Negative] Negative mg/dL *NA* (05/28/17 10:36 AM) Negative mg/dL *NA* (05/25/17 3:03 PM) UA Ketones [Negative mg/dL] 30 mg/dL *ABN* (05/28/17 10:36 AM) 100 mg/dL *ABN* (05/25/17 3:03 PM) UA Protein [Negative mg/dL] <=1.0 mg/dL *NA* (05/28/17 10:36 AM) <=1.0 mg/dL *NA* (05/25/17 3:03 PM) UA Urobilinogen [0.1-1.0 mg/dL] Negative *NA* (05/28/17 10:36 AM) Negative *NA* (05/25/17 3:03 PM) UA Bili [Negative] Trace *ABN* (05/28/17 10:36 AM) Small *ABN* (05/25/17 3:03 PM) UA Leuk Est [Negative] Negative (05/28/17 10:36 AM) Negative (05/25/17 3:03 PM) UA Nitrite [Negative] 8 /HPF *HI* (05/28/17 10:36 AM) 12 /HPF *HI* (05/25/17 3:03 PM) UA WBC [0-5 /HPF] 34 /HPF *HI* (05/28/17 10:36 AM) 7 /HPF *HI* (05/25/17 3:03 PM) UA RBC [0-2 /HPF] Occasional /HPF *NA* (05/28/17 10:36 AM) Occasional /HPF *NA* (05/25/17 3:03 PM) UA Bacteria [None Seen /HPF] Occasional /LPF *NA* (05/28/17 10:36 AM) Occasional /LPF *NA* (05/25/17 3:03 PM) UA Sq Epi [Few /LPF] 6 /LPF *HI* (05/25/17 3:03 PM) UA Hyal Cast [0-2 /LPF] IMMUNOLOGY 1 2 3 Most recent to oldest [Reference Range]: Negative (06/02/17 4:15 AM) RAMNÓ [Negative] 3.5 mg/L *HI* (06/02/17 4:15 AM) CRP [<=2.9 mg/L] HEMATOLOGY 1 2 3 Most recent to oldest [Reference Range]: 4.6 K/CMM (06/02/17 4:15 AM) 4.9 K/CMM (05/29/17 11:49 AM) 4.4 K/CMM (05/26/17 6:44 AM) WBC [3.7-10.4 K/CMM] 3.44 M/CMM *LOW* (06/02/17 4:15 AM) 3.57 M/CMM *LOW* (05/29/17 11:49 AM) 3.43 M/CMM *LOW* (05/26/17 6:44 AM) RBC [4.20-5.40 M/CMM] 10.2 g/dL *LOW* (06/02/17 4:15 AM) 10.7 g/dL *LOW* (05/29/17 11:49 AM) 10.3 g/dL *LOW* (05/26/17 6:44 AM) Hgb [12.0-16.0 g/dL] 31.4 % *LOW* (06/02/17 4:15 AM) 32.2 % *LOW* (05/29/17 11:49 AM) 30.9 % *LOW* (05/26/17 6:44 AM) Hct [36.0-48.0 %] 91.2 fL (06/02/17 4:15 AM) 90.2 fL (05/29/17 11:49 AM) 90.0 fL (05/26/17 6:44 AM) MCV [80.0-98.0 fL] 29.6 pg (06/02/17 4:15 AM) 30.1 pg (05/29/17 11:49 AM) 30.1 pg (05/26/17 6:44 AM) MCH [27.0-31.0 pg] 32.5 g/dL (06/02/17 4:15 AM) 33.3 g/dL (05/29/17 11:49 AM) 33.5 g/dL (05/26/17 6:44 AM) MCHC [32.0-36.0 g/dL] 14.0 % (06/02/17 4:15 AM) 13.8 % (05/29/17 11:49 AM) 14.4 % (05/26/17 6:44 AM) RDW [11.5-14.5 %] 196 K/CMM (06/02/17 4:15 AM) 223 K/CMM (05/29/17 11:49 AM) 192 K/CMM (05/26/17 6:44 AM) Platelet [133-450 K/CMM] 10.2 fL (06/02/17 4:15 AM) 9.8 fL (05/29/17 11:49 AM) 9.3 fL (05/26/17 6:44 AM) MPV [7.4-10.4 fL] 46.3 % (06/02/17 4:15 AM) 62.5 % (05/29/17 11:49 AM) 56.6 % (05/26/17 6:44 AM) Segs [45.0-75.0 %] 34.5 % (06/02/17 4:15 AM) 21.2 % (05/29/17 11:49 AM) 27.2 % (05/26/17 6:44 AM) Lymphocytes [20.0-40.0 %] 12.5 % *HI* (06/02/17 4:15 AM) 11.1 % (05/29/17 11:49 AM) 11.2 % (05/26/17 6:44 AM) Monocytes [2.0-12.0 %] 5.5 % *HI* (06/02/17 4:15 AM) 4.0 % (05/29/17 11:49 AM) 4.2 % *HI* (05/26/17 6:44 AM) Eosinophils [0.0-4.0 %] 1.2 % *HI* (06/02/17 4:15 AM) 1.2 % *HI* (05/29/17 11:49 AM) 0.8 % (05/26/17 6:44 AM) Basophils [0.0-1.0 %] 2.1 K/CMM (06/02/17 4:15 AM) 3.0 K/CMM (05/29/17 11:49 AM) 2.5 K/CMM (05/26/17 6:44 AM) Segs-Bands # [1.5-8.1 K/CMM] 1.6 K/CMM (06/02/17 4:15 AM) 1.0 K/CMM (05/29/17 11:49 AM) 1.2 K/CMM (05/26/17 6:44 AM) Lymphocytes # [1.0-5.5 K/CMM] 0.6 K/CMM (06/02/17 4:15 AM) 0.5 K/CMM (05/29/17 11:49 AM) 0.5 K/CMM (05/26/17 6:44 AM) Monocytes # [0.0-0.8 K/CMM] 0.3 K/CMM (06/02/17 4:15 AM) 0.2 K/CMM (05/29/17 11:49 AM) 0.2 K/CMM (05/26/17 6:44 AM) Eosinophils # [0.0-0.5 K/CMM] 0.1 K/CMM (06/02/17 4:15 AM) 0.1 K/CMM (05/29/17 11:49 AM) 0.1 K/CMM (05/25/17 1:17 PM) Basophils # [0.0-0.2 K/CMM] 78 mm/hr *HI* (06/02/17 4:15 AM) Sed Rate [0-20 mm/hr] 12.5 seconds (05/25/17 1:17 PM) PT [12.0-14.7 seconds] 0.91 (05/25/17 1:17 PM) INR [0.85-1.17] 25.7 seconds (05/25/17 1:17 PM) PTT [22.9-35.8 seconds] Immunizations Not Given Vaccine Date Status Refusal [...] Clinical Document Author: Faisal Joseph MD Date: 06/02/17 Medicine Progress Daily Chief Complaint: Multiple issues Subjective & Interval history: Patient seen and examined. No new complaints. Objective: Vital Signs (last 24 hrs) Last Charted Temp Oral98.4 DegF (JUN 02 03:07) Heart Rate [id number] bpm (JUN 02 03:07) Resp Rate 16 BRMIN (JUN 02 03:07) MED772 mmHg (JUN 02 03:07) DBP67 mmHg (JUN 02 03:07) EeR347 % (JUN 02:) Medications and labs reviewed as below. PHYSICAL EXAM: GENERAL: AAO NAD HEENT: NCAT, perrl, eomi NECK: Supple, midline trachea LUNGS: CTAB, No rales, rhonchi or wheezes. non labored breathing. CARDIOVASCULAR: S1, S2 normal. No M/G/R. ABDOMEN: Soft, ND, NT. BS + EXTREMITIES: No C/C , or Edema SKIN: No rashes. MUSCULOSKELETAL: Moving all extremities. Neuro: No new motor or sensory deficits IMPRESSION: Visual changes TIA Poorly controlled DM - labile Hypoglycemia Medical non complaince HTN CP PLAN & TREATMENT senior care facility placement is pending PT/OT to continue continue insulin. Blood glucose 150s this am Diabetic education and compliance with insulin discussed. BP control MRA negative For details see orders. Plan of care discussed with patient and nursing Disposition: senior care facility once accepted Input/Output RecordInOutBal 1624hr Tot 14 2 12 1524hr Tot 14 0 14 Scheduled Meds (11):PARoxetine, aspirin (aspirin 81 mg tablet, enteric coated), carvedilol, ciprofloxacin (Cipro), cyanocobalamin (Vitamin B12), enoxaparin, furosemide (Lasix), insulin aspart, insulin detemir, lisinopril, sodium chloride (Saline Flush 0.9%) Unscheduled Meds: None PRN Meds (19):Dextrose 50% in Water IV (Dextrose 50% Syringe), Dextrose 50% in Water IV (Dextrose 50% Syringe), acetaminophen-hydrocodone (acetaminophen- hydrocodone 325 mg-5 mg oral tablet), albuterol-ipratropium, glucagon, hyoscyamine, insulin aspart, insulin aspart, insulin aspart, insulin aspart, insulin aspart, insulin aspart, insulin aspart, insulin aspart, insulin aspart, labetalol, lactulose (lactulose 10 g/15 mL oral syrup), sodium chloride (Saline Flush 0.9%), tramadol (tramadol 50 mg oral tablet) One Time Meds: None Continuous Infusions: None Labs (Last four charted values) WBC 4.9(MAY 29)4.4(MAY 26)5.5(MAY 25) Hgb L 10.7(MAY 29)L 10.3(MAY 26)L 10.2(MAY 25) Hct L 32.2(MAY 29)L 30.9(MAY 26)L 30.1(MAY 25) Plt 223(MAY 29)192(MAY 26)198(MAY 25) Na 138(MAY 29)139(MAY 26)141(MAY 25) K 4.0(MAY 29)4.4(MAY 26)4.1(MAY 25) CO2 H 35(MAY 29)32(MAY 26)H 34(MAY 25) Cl 96(MAY 29)100(MAY 26)102(MAY 25) Cr 1.10(MAY 29)0.97(MAY 26)0.95(MAY 25) BUN H 35(MAY 29)H 36(MAY 26)H 39(MAY 25) Glucose Random H 178(MAY 29)H 378(MAY 26)98(MAY 25) Mg 2.0(MAY 25) Ca 8.7(MAY 29)8.5(MAY 26)8.7(MAY 25) PT 12.5(MAY 25) INR 0.91(MAY 25) PTT 25.7(MAY 25) Troponin <0.02(MAY 26)<0.02(MAY 25) CK MB 1.3(MAY 25) Total CK 43(MAY 26)48(MAY 25) Extracted from: Title: Clinical Document Author: Nicol Betts NP Date: 05/29/17 CONSU DATE OF CONSULT: 05/29/17 REFERRING PHYSICIAN: Dr. Freeman CONSULTING PHYSICIAN: Nicol Betts APRN REASON FOR CONSULTATION: lumbar spondylosis HISTORY OF PRESENT ILLNESS: Ms. Frank, a 61 year old female, was seen today as a consultation. She reports that she came to the hospital because of shortness of breath and weakness. Her family reported that ever since she was started on a beta amanda, she has been very lethargic as well. Regarding weakness, she has had slowly progressive weakness of all limbs since , now impairing her ability to walk. However she also reports a known right knee injury, which was fractured and had meniscus tear, and she has been told she needs surgery one, but has not had yet. She feels severe pain around this right knee, and feels this knee causes her inability to walk. She has urinary incontinence at baseline and had a bladder mesh placed in the past, but it has gotten worse recently. She reports some chronic lower back and neck pain, but denies radiculopathic pain in her legs or left arm. She reports some pain and numbness in her right hand, and feels her right hand has gotten progressively weaker, and she has difficulty straightening these fingers out. PAST MEDICAL HISTORY: HTN DMT2 CHF PAST SURGICAL HISTORY: bladder mesh abdominoplasty Hysterectomy Cholecystecomty Gastric band SOCIAL HISTORY: no alcohol, tobacco, or drug use FAMILY HISTORY: noncontributory Allergies Januvia metformin influenza virus vaccine Medications Please see MAR REVIEW OF SYSTEMS: Systems reviewed PHYSICAL EXAMINATION: Vital Signs: Temp 97.9, HR 83, BP 103/66, RR 16 Neurological: Alert and oriented x3. Language intact. Follows all commands CN: CNII - XII grossly intact, however She has some vertical double vision with upgaze Reflexes 2+ throughout, absent babinki, tone WNL. [id number] [id number] O5-2-2-4-4-4-4- IPSQATEHLG R4-4-4-4-4- L4-4-4-4-4- LABORATORY DATA: CO2: 32 mEq/L (05/26/17 07:27:42) Chloride Lvl: 100 mEq/L (05/26/17 07:27:42) Sodium Lvl: 139 mEq/L (05/26/17 07:27:42) Glucose Lvl: 378 mg/dL High (05/26/17 07:27:42) Calcium Lvl: 8.5 mg/dL (05/26/17 07:27:42) Potassium Lvl: 4.4 mEq/L (05/26/17 07:27:42) BUN: 36 mg/dL High (05/26/17 07:27:42) AGAP: 11.4 mEq/L (05/26/17 07:27:42) Creatinine Lvl: 0.97 mg/dL (05/26/17 07:27:42) Hct: 30.9 % Low (05/26/17 06:59:39) Hgb: 10.3 g/dL Low (05/26/17 06:59:39) MCH: 30.1 pg (05/26/17 06:59:39) MCHC: 33.5 g/dL (05/26/17 06:59:39) MCV: 90 fL (05/26/17 06:59:39) MPV: 9.3 fL (05/26/17 06:59:39) Platelet: 192 K/CMM (05/26/17 06:59:39) RBC: 3.43 M/CMM Low (05/26/17 06:59:39) RDW: 14.4 % (05/26/17 06:59:39) WBC: 4.4 K/CMM (05/26/17 06:59:39) Basophils: 0.8 % (05/26/17 06:59:40) Basophils #: 0.1 K/CMM (05/25/17 13:24:52) Eosinophils: 4.2 % High (05/26/17 06:59:40) Eosinophils #: 0.2 K/CMM (05/26/17 06:59:40) Lymphocytes: 27.2 % (05/26/17 06:59:40) Lymphocytes #: 1.2 K/CMM (05/26/17 06:59:40) Monocytes: 11.2 % (05/26/17 06:59:40) Monocytes #: 0.5 K/CMM (05/26/17 06:59:40) Segs: 56.6 % (05/26/17 06:59:40) Segs-Bands #: 2.5 K/CMM (05/26/17 06:59:40) RADIOLOGY DATA: MRI brain wo 1. Age appropriate involutionary changes with mild punctate small vessel ischemic changes. 2. Mucoperiosteal thickening and partial opacification of the frontal sinuses suggesting sinus inflammatory disease versus multiple polyposis. 3. Changes in the right ana most likely small vessel ischemic changes however demyelinating disease and other etiologies can have a similar appearance, similar Cervical spine MRI: DDD with exaggerated cervical lordosis. Moderate central stenosis, with 8mm AP diameter at the worst, at C5-6. No T2 signal changes or foraminal stenosis noted. Thoracic MRI: exaggerated thoracic lordosis. No central stenosis or spinal cord compression. Lumbar MRI: DDD with bulge at L4-5 and L5-S1. Moderate central stenosis at L4- 5, with bilateral lateral recess stenosis at L4-5, and possible right LR stenosis at L5-S1. ASSESSMENT/Plan 1. Lumbar spondylosis, as seen on imaging, likely contributing to chronic back pain 2. Mild to moderate central stenosis in cervical spine, without clear spinal cord injury Ms. Frank, a 61 year old female, was seen today as a consultation regarding her spine MRI findings. On cervical spine we can see some degeneration, with exaggerated cervical lordosis and mild to moderate central stenosis, with the worst at C5-6 8mm AP diameter. There is no T2 signal changes or spinal cord injury which we can see. On her thoracic imaging we can see exaggerated thoracic lordosis, but no evidence of central stenosis or cord injury. On lumbar imaging we can see degeneration at the lowest two levels, L4-5 and L5- S1, with some cenrtal and bilateral lateral recess stenosis at L4-5. This may contribue to her back pain, however she endorses no leg pain at the moment, beyond her right knee pain. On exam she does display generalized weakness throughout, with more profound weakness in her right hand intrinsics, finger extensors and flexors. She reports progressive weakness in this hand. At this time we are unclear as to an etiology for her right hand weakness. We did not see any clear foraminal stenosis on her cervical MRI to account for this, nor did we see significant central stenosis with spinal cord compression. At this time we will recommend a cervical CT to evaluate any potential etiologies not visualized on the MRI. Otherwise, we will recommend conservative pain managmenet, and will ask that the patinet follow up with us as an outpatient in our clinic. We have discussed this with the patient and have provided her with our contact information. Thank you for this consultation. PLAN: 1. CT cervical spine 2. conservative pain management 3. F/u as outpatient in neurosurgery clinic Nicol Betts APRN Extracted from: Title: Clinical Document Author: Henry Alan MD Date: 05/26/17 H/P is dictated. [id number]
--- OUTSIDE RECORDS SUMMARY | 2019-03-23 18:35 | XMS REPORT | Summary of Care ---
Author Author [facility] Address Unknown Phone Unavailable Encounter KENROY Aguayo(JOVANNY) [id number] Date(s): 03/10/17 - 04/08/17 [facility] Discharge Disposition: Home or Self Care Attending Physician: Faisal Joseph MD Vital Signs No data available for this section Problem List Condition Effective Dates Status Health [...] Active VRE(Confirmed)6 Active 1heart 2Data migrated from [employer] on 07/11/15. - in urine 4Problem added by Discern Expert. 5Data migrated from [employer] on 07/11/15. 6Problem added by Discern Expert. Allergies, Adverse Reactions, Alerts Substance Reaction Severity Status influenza virus vaccine, Influenza virus vaccine Active inactivated Januvia Active metformin Active Medications No data available for this section Results No data available for this section Immunizations Not Given Vaccine Date Status Refusal [...]
--- OUTSIDE RECORDS SUMMARY | 2019-03-23 18:35 | XMS REPORT | Summary of Care ---
Author Author [facility] Organization [facility] Address Unknown Phone Unavailable Encounter KENROY Aguayo(JOVANNY) [id number] Date(s): 06/21/17 - 06/22/17 [facility] [address] [place] [address]- Discharge Diagnosis: Fall Discharge Disposition: Home or Self Care Attending Physician: Tuan Escamilla DO Vital Signs 1 2 3 Most recent to oldest [Reference Range]: 97.6 DegF (06/21/17 9:39 PM) Temperature Oral [96.4-99.1 DegF] 166/80 mmHg *HI* (06/22/17 2:04 AM) 159/89 mmHg *HI* (06/22/17 12:00 AM) 173/96 mmHg *HI* (06/21/17 9:39 PM) Blood Pressure [90-140/60-90 mmHg] 18 BRMIN (06/22/17 2:04 AM) 18 BRMIN (06/22/17 12:00 AM) 18 BRMIN (06/21/17 9:39 PM) Respiratory Rate [14-20 BRMIN] 74 bpm (06/22/17 2:04 AM) 87 bpm (06/22/17 12:00 AM) 76 bpm (06/21/17 9:39 PM) Peripheral Pulse Rate [60-100 bpm] Problem List Condition Effective Dates Status Health Status Informant Catheterization(Conf Resolved irmed)1 Degenerative disc Resolved disease(Confirmed) DM - Diabetes Active mellitus(Confirmed) Gastroesophageal Active reflux disease(Confirmed) GERD Active (gastroesophageal reflux disease)(Confirmed) GI bleed(Confirmed) Active HTN - Active Hypertension(Confirm ed) Hyperglycemia(Confir Active med) Injury of ulnar 07/08/14 Active nerve2 MRSA(Confirmed)3, 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 Start Date: 06/22/17 Stop Date: 06/22/17 Status: Completed tramadol 50 mg oral tablet 50 mg=1 tab, PO, Q12H, X 7 day, # 14 tab, 0 Refill(s) Start Date: 06/22/17 Stop Date: 06/29/17 Status: Ordered Results No data available for this section [...]
--- OUTSIDE RECORDS SUMMARY | 2019-03-23 18:36 | XMS REPORT | CCD ---
Author Author Auto Generated Organization [facility] Address Unknown Phone Unavailable Care Team Providers Care Paint Grinder Name Role Phone Latasha Shane CP Allergies, Adverse Reactions, Alerts Substance Reaction Status influenza virus vaccine, Influenza virus vaccine Active inactivated metformin Active Problem List Condition Effective Dates Status Hyperglycemia Active Syncope 05/11/2009 Active
--- OUTSIDE RECORDS SUMMARY | 2019-03-23 18:36 | XMS REPORT | CCD ---
Author Author Auto Generated Organization [facility] Address Unknown Phone Unavailable Care Team Providers Care International Manager Name Role Phone Robert Matta CP Allergies, Adverse Reactions, Alerts Substance Reaction Status influenza virus vaccine, Influenza virus vaccine Active inactivated metformin Active Problem List Condition Effective Dates Status Degenerative disc disease Resolved DM - Diabetes mellitus Active HTN - Hypertension Active Hyperglycemia Active Syncope 05/11/2009 Resolved Thyroid disorder Resolved UTI - Urinary tract infection Active Medications Medication Instructions Start Date End Date Status [place] 5/325 oral 1 tab, PO, Q4H, PRN, 12 tab, for 12/25/2012 Ordered tablet pain, Substitution Allowed, Maintenance, TAB Cipro 500 mg oral 500 mg, 1 tab, PO, Q12H, 20 tab, 12/25/2012 Ordered tablet Substitution Allowed, TAB Vital Signs Most recent to oldest [Reference Range]: 1 Height 165.10 cm (12/25/2012 01:18:00) Weight 113.636 kg (12/25/2012 01:18:00) Results URINALYSIS Most recent to oldest [Reference Range]: 1 UA Turbidity [Clear] Clear (12/25/2012 02:30:00) UA Color [Yellow] Yellow *NA* (12/25/2012 02:30:00) UA pH [5.0-8.0] 6.0 (12/25/2012 02:30:00) UA Spec Grav [<=1.030] >1.030 (12/25/2012 02:30:00) UA Glucose [Negative] Negative (12/25/2012 02:30:00) UA Blood [Negative] Trace *ABN* (12/25/2012 02:30:00) UA Ketones [Negative] Trace *ABN* (12/25/2012 02:30:00) UA Protein [Negative] Trace *ABN* (12/25/2012 02:30:00) UA Urobilinogen [0.1-1.0 EU/dL] 0.2 EU/dL (12/25/2012 02:30:00) UA Bili [Negative] Negative *NA* (12/25/2012 02:30:00) UA Leuk Est [Negative] Trace *ABN* (12/25/2012 02:30:00) UA Nitrite [Negative] Negative (12/25/2012 02:30:00) UA WBC [0-5 /HPF] 11-20 /HPF *ABN* (12/25/2012 02:30:00) UA RBC [0-2 /HPF] 0-2 /HPF (12/25/2012 02:30:00) UA Bacteria [None Seen /HPF] Few /HPF (12/25/2012 02:30:00) UA Sq Epi [Few /LPF] Many /LPF *ABN* (12/25/2012 02:30:00) UA [place] Yeast [None Seen /HPF] Few /HPF *ABN* (12/25/2012 02:30:00) Microbiology Reports PROCEDURE:Culture: Urine STATUS: In Progress BODY SITE: COLLECTED DATE/TIME: 12/25/2012 02:30:00 SOURCE: Urine, Clean Catch FREE TEXT SOURCE: PRELIMINARY REPORTS Preliminary Report >100,000 CFU/mL Gram Negative Rods, Lactose Fermenters Identification And Sensitivity Pending . 50,000 - 100,000 CFU/mL Skin Shonna Procedures Procedures Date Related Diagnosis Abdominal hysterectomy Abdominoplasty and liposuction Laparoscopic adjustable gastric banding Suspension of bladder
--- OUTSIDE RECORDS SUMMARY | 2019-03-23 18:36 | XMS REPORT | Summary of Care ---
Author Author [facility] airport operations manager [employer] Organization [facility] airport operations manager [place] Address Unknown Phone Unavailable Encounter HQ Devonr_osvaldo(FIN) [id number] Date(s): 03/23/18 - 03/24/18 [facility] airport operations manager [place] [address] [place] [address] [phone] Vital Signs No data available for this [...] - Urinary tract Active infection(Confirmed) VRE(Confirmed) Active VRE(Confirmed)6, 7 10/20/14 Active 1heart 2Data migrated from [employer] on 07/11/15. - in urine 4Problem added by Discern Expert. 5Data migrated from [employer] on 07/11/15. 6Urine, 10/20/2014 7Problem added by Discern Expert. Allergies, Adverse Reactions, Alerts Substance Reaction Severity Status metformin Active influenza virus vaccine, Influenza virus vaccine Active inactivated Januvia Active Medications No data available for this section Results No data available for this section Immunizations Not Given Vaccine Date Status Refusal Reason pneumococcal 23-valent vaccine 10/12/16 Not Given Patient Refuses Procedures Procedure Date Related Diagnosis Body Site Status Abdominal hysterectomy Completed Abdominoplasty and liposuction Completed Cholecystectomy Completed Laparoscopic adjustable gastric banding Completed Suspension of bladder Completed Social History Social History Type Response Substance Abuse Use: None. Alcohol Never Smoking Status Never smoker; Exposure to Tobacco Smoke None; Cigarette Smoking Last 365 Days No; Reg Smoking Cessation Counseling No entered on: 11/20/17 Assessment and Plan No data available for this section
--- OUTSIDE RECORDS SUMMARY | 2019-03-23 18:36 | XMS REPORT | Summary of Care ---
Author Author [facility] Organization [facility] Address Unknown Phone Unavailable Encounter KENROY Aguayo(JOVANNY) [id number] Date(s): 07/17/18 - 07/18/18 [facility] [address] [place] [address]- [phone] Encounter Diagnosis Other chest pain (Final) - 07/27/18 Dyspnea, unspecified (Final) - Hypertensive heart and chronic kidney disease with heart failure and with stage 5 chronic kidney disease, or end stage renal disease (Final) - Chronic diastolic (congestive) heart failure (Final) - End stage renal disease (Final) - Type 2 diabetes mellitus with diabetic chronic kidney disease (Final) - Type 2 diabetes mellitus with hyperglycemia (Final) - Gastro-esophageal reflux disease without esophagitis (Final) - Anemia in chronic kidney disease (Final) - Other hypotension (Final) - Dependence on renal dialysis (Final) - 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 (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) - Discharge Disposition: Left Against Medical Advise Attending Physician: Brody Weems MD Admitting Physician: Brody Weems MD Vital Signs 1 2 3 Most recent to oldest [Reference Range]: 167.64 cm (07/17/18 10:52 AM) Height 98 DegF (07/18/18 7:37 AM) 98.0 DegF (07/18/18 4:36 AM) 98.4 DegF (07/18/18 12:00 AM) Temperature Oral [96.4-99.1 DegF] 136/68 mmHg (07/18/18 7:37 AM) 136/72 mmHg (07/18/18 4:36 AM) 106/69 mmHg (07/18/18 12:00 AM) Blood Pressure [90-140/60-90 mmHg] 16 BRMIN (07/18/18 7:37 AM) 20 BRMIN (07/18/18 4:36 AM) 20 BRMIN (07/18/18 12:00 AM) Respiratory Rate [14-20 BRMIN] 74 bpm (07/18/18 7:37 AM) 81 bpm (07/18/18 4:36 AM) 83 bpm (07/18/18 12:00 AM) Peripheral Pulse Rate [60-100 bpm] 120.455 kg (07/17/18 10:52 AM) Weight 42.86 m2 (07/17/18 10:52 AM) Body Mass Index Problem List Condition [...] 7 10/20/14 Active 1heart 2Data migrated from [employer] on 07/11/15. - in urine 4Problem added by Discern Expert. 5Data migrated from [employer] on 07/11/15. 6Urine, 10/20/2014 7Problem added by Discern Expert. Allergies, Adverse Reactions, Alerts Substance Reaction Severity Status metformin Active influenza virus vaccine, Influenza virus vaccine Active inactivated Januvia Active Medications aspirin 324 mg, Route: PO, ONCE, Dosing Weight 120.455, kg, Priority: STAT, Start date: 07/17/18 11:38:00 CDT, Stop date: 07/17/18 11:38:00 CDT Start Date: 07/17/18 Stop Date: 07/17/18 Status: Completed aspirin 81 mg, 1 tab, Route: PO, Drug form: ECTAB, Daily, Dosing Weight 120.455, kg, Sta rt date: 07/18/18 9:00:00 CDT, Duration: 30 day, Stop date: 08/16/18 9:00:00 CDT Notes: Do not crush or chew.(Same As: Ecotrin) Start Date: 07/18/18 Stop Date: 07/18/18 Status: Discontinued atorvastatin 20 mg, 2 tab, Route: PO, Drug form: TAB, Bedtime, Dosing Weight 120.455, kg, Sta rt date: 07/17/18 21:00:00 CDT, Duration: 30 day, Stop date: 08/15/18 21:00:00 C DT Notes: (Same As: Lipitor) Start Date: 07/17/18 Stop Date: 07/18/18 Status: Discontinued Dextrose 50% Syringe 25 gm, 50 mL, Route: IVP, Drug Form: INJ, Dosing Weight 120.455, kg, PRN, PRN Bl ood Glucose Results, Start date: 07/17/18 20:46:00 CDT, Duration: 30 day, Stop d ate: 08/16/18 20:45:00 CDT Start Date: 07/17/18 Stop Date: 07/18/18 Status: Discontinued Dextrose 50% Syringe 12.5 gm, 25 mL, Route: IVP, Drug Form: INJ, Dosing Weight 120.455, kg, PRN, PRN Blood Glucose Results, Start date: 07/17/18 20:46:00 CDT, Duration: 30 day, Stop date: 08/16/18 20:45:00 CDT Start Date: 07/17/18 Stop Date: 07/18/18 Status: Discontinued glucagon 1 mg, Route: IM, Drug form: PDR/INJ, PRN, Dosing Weight 120.455, kg, PRN Blood G lucose Results, Start date: 07/17/18 20:46:00 CDT, Duration: 30 day, Stop date: 08/16/18 20:45:00 CDT Start Date: 07/17/18 Stop Date: 07/18/18 Status: Discontinued heparin 5,000 unit, 1 mL, Route: SUB-Q, Drug form: INJ, Q12H, Dosing Weight 120.455, kg, Start date: 07/17/18 21:00:00 CDT, Stop date: 08/16/18 9:00:00 CDT Notes: porcine heparin Start Date: 07/17/18 Stop Date: 07/18/18 Status: Discontinued insulin glargine 15 unit, 0.15 mL, Route: SUB-Q, Drug form: SOLN, BID, Start date: 07/17/18 23:20 :00 CDT, Duration: 30 day, Stop date: 08/16/18 17:00:00 CDT Notes: (Same as: Lantus)Do not hold insulin without contacting prescriberWASTE: F/P - Black; E - [facility] Tr[facility] "single patient use only" Start Date: 07/17/18 Stop Date: 07/18/18 Status: Discontinued insulin lispro See Instructions, 15 units above 300 and 8-14 units if its below SUB-Q, 0 Refill (s) Start Date: 07/17/18 Status: Ordered insulin lispro 3 unit, 0.03 mL, Route: SUB-Q, Drug form: SOLN, Bedtime, Dosing Weight 120.455, kg, PRN Blood Glucose Results, Start date: 07/17/18 20:46:00 CDT, Duration: 30 d ay, Stop date: 08/16/18 20:45:00 CDT Notes: (Same as: Humalog ) Roll in palms of hands gently; Do not shake `vigorou sly. "Single Patient Use Only " WASTE: F/P - Black; E - [facility] [address] [facility] St able for 28 days at room temperature.Expires in days from Da te Start Date: 07/17/18 Stop Date: 07/18/18 Status: Discontinued insulin lispro 2 unit, 0.02 mL, Route: SUB-Q, Drug form: SOLN, Bedtime, Dosing Weight 120.455, kg, PRN Blood Glucose Results, Start date: 07/17/18 20:46:00 CDT, Duration: 30 d ay, Stop date: 08/16/18 20:45:00 CDT Notes: (Same as: Humalog ) Roll in palms of hands gently; Do not shake `vigorou sly. "Single Patient Use Only " WASTE: F/P - Black; E - [facility] [address] [facility] [address] able for 28 days at room temperature.Expires in days from Da te Start Date: 07/17/18 Stop Date: 07/18/18 Status: Discontinued insulin lispro 4 unit, 0.04 mL, Route: SUB-Q, Drug form: SOLN, Bedtime, Dosing Weight 120.455, kg, PRN Blood Glucose Results, Start date: 07/17/18 20:46:00 CDT, Duration: 30 d ay, Stop date: 08/16/18 20:45:00 CDT Notes: (Same as: Humalog ) Roll in palms of hands gently; Do not shake `vigorou sly. "Single Patient Use Only " WASTE: F/P - Black; E - [facility] [address] [facility] [address] able for 28 days at room temperature.Expires in days from Da te Start Date: 07/17/18 Stop Date: 07/18/18 Status: Discontinued insulin lispro 1 unit, 0.01 mL, Route: SUB-Q, Drug form: SOLN, Bedtime, Dosing Weight 120.455, kg, PRN Blood Glucose Results, Start date: 07/17/18 20:46:00 CDT, Duration: 30 d ay, Stop date: 08/16/18 20:45:00 CDT Notes: (Same as: Humalog ) Roll in palms of hands gently; Do not shake `vigorou sly. "Single Patient Use Only " WASTE: F/P - Black; E - [facility] [address] [facility] [address] able for 28 days at room temperature.Expires in days from Da te Start Date: 07/17/18 Stop Date: 07/18/18 Status: Discontinued insulin lispro 6 unit, 0.06 mL, Route: SUB-Q, Drug form: SOLN, TID-Before Meals, Dosing Weight 120.455, kg, PRN Blood Glucose Results, Start date: 07/17/18 20:46:00 CDT, Durat ion: 30 day, Stop date: 08/16/18 20:45:00 CDT Notes: (Same as: Humalog ) Roll in palms of hands gently; Do not shake `vigorou sly. "Single Patient Use Only " WASTE: F/P - Black; E - [facility] [facility] [address] able for 28 days at room temperature.Expires in days from Da te Start Date: 07/17/18 Stop Date: 07/18/18 Status: Discontinued insulin lispro 4 unit, 0.04 mL, Route: SUB-Q, Drug form: SOLN, TID-Before Meals, Dosing Weight 120.455, kg, PRN Blood Glucose Results, Start date: 07/17/18 20:46:00 CDT, Durat ion: 30 day, Stop date: 08/16/18 20:45:00 CDT Notes: (Same as: Humalog ) Roll in palms of hands gently; Do not shake `vigorou sly. "Single Patient Use Only " WASTE: F/P - Black; E - [facility] [address] able for 28 days at room temperature.Expires in days from Da te Start Date: 07/17/18 Stop Date: 07/18/18 Status: Discontinued insulin lispro 2 unit, 0.02 mL, Route: SUB-Q, Drug form: SOLN, TID-Before Meals, Dosing Weight 120.455, kg, PRN Blood Glucose Results, Start date: 07/17/18 20:46:00 CDT, Durat ion: 30 day, Stop date: 08/16/18 20:45:00 CDT Notes: (Same as: Humalog ) Roll in palms of hands gently; Do not shake `vigorou sly. "Single Patient Use Only " WASTE: F/P - Black; E - [facility] [address] able for 28 days at room temperature.Expires in days from Da te Start Date: 07/17/18 Stop Date: 07/18/18 Status: Discontinued insulin lispro 10 unit, 0.1 mL, Route: SUB-Q, Drug form: SOLN, TID-Before Meals, Dosing Weight 120.455, kg, PRN Blood Glucose Results, Start date: 07/17/18 20:46:00 CDT, Durat ion: 30 day, Stop date: 08/16/18 20:45:00 CDT Notes: (Same as: Humalog ) Roll in palms of hands gently; Do not shake `vigorou sly. "Single Patient Use Only " WASTE: F/P - Black; E - [facility] [facility] St able for 28 days at room temperature.Expires in days from Da te Start Date: 07/17/18 Stop Date: 07/18/18 Status: Discontinued insulin lispro 8 unit, 0.08 mL, Route: SUB-Q, Drug form: SOLN, TID-Before Meals, Dosing Weight 120.455, kg, PRN Blood Glucose Results, Start date: 07/17/18 20:46:00 CDT, Durat ion: 30 day, Stop date: 08/16/18 20:45:00 CDT Notes: (Same as: Humalog ) Roll in palms of hands gently; Do not shake `vigorou sly. "Single Patient Use Only " WASTE: F/P - Black; E - [facility] [facility] St able for 28 days at room temperature.Expires in days from Da te Start Date: 07/17/18 Stop Date: 07/18/18 Status: Discontinued Lantus 100 units/mL 20 unit, 0.2 mL, Route: SUB-Q, Drug form: SOLN, ONCE, Dosing Weight 120.455, kg, Start date: 07/18/18 9:43:00 CDT, Stop date: 07/18/18 9:43:00 CDT Notes: (Same as: Lantus)Do not hold insulin without contacting prescriberWASTE: F/P - Black; E - [facility] Trash [facility] "single patient use only" Start Date: 07/18/18 Stop Date: 07/18/18 Status: Completed Lantus 100 units/mL See Instructions, 35 units BID SUB-Q, 0 Refill(s) Start Date: 07/17/18 Status: Ordered Levemir 15 unit, Route: SUB-Q, BID, Dosing Weight 120.455, kg, Start date: 07/18/18 9:00 :00 CDT, Duration: 30 day, Stop date: 08/16/18 17:00:00 CDT Start Date: 07/18/18 Stop Date: 07/17/18 Status: Deleted morphine Sulfate 2 mg, Route: IVP, ONCE, Dosing Weight 120.455, kg, Priority: STAT, Start date: 0 07/17/18 11:38:00 CDT, Stop date: 07/17/18 11:38:00 CDT Start Date: 07/17/18 Stop Date: 07/17/18 Status: Completed Saline Flush 0.9% 10 mL, Route: IVP, Drug Form: INJ, Dosing Weight 120.455, kg, PRN, PRN Line Flus h, Start date: 07/17/18 11:38:00 CDT, Duration: 30 day, Stop date: 08/16/18 11:3 7:00 CDT Notes: (Same as: BD Posiflush) Start Date: 07/17/18 Stop Date: 07/18/18 Status: Discontinued Results ELECTROLYTES 1 2 3 Most recent to oldest [Reference Range]: 135 mEq/L (07/17/18 12:11 PM) Sodium Lvl [135-145 mEq/L] 4.4 mEq/L (07/17/18 12:11 PM) Potassium Lvl [3.5-5.1 mEq/L] 99 mEq/L (07/17/18 12:11 PM) Chloride Lvl [95-109 mEq/L] 29 mEq/L (07/17/18 12:11 PM) CO2 [24-32 mEq/L] 11.4 mEq/L (07/17/18 12:11 PM) AGAP [10.0-20.0 mEq/L] CHEM PANEL 1 2 3 Most recent to oldest [Reference Range]: 3.05 mg/dL *HI* (07/17/18 12:11 PM) Creatinine Lvl [0.50-1.40 mg/dL] 16 mL/min/1.73m2 1 *NA* (07/17/18 12:11 PM) eGFR 41 mg/dL *HI* (07/17/18 12:11 PM) BUN [7-22 mg/dL] 13 (07/17/18 12:11 PM) B/C Ratio [6-25] 339 mg/dL *HI* (07/17/18 12:11 PM) Glucose Lvl [70-99 mg/dL] 8.0 g/dL (07/17/18 12:11 PM) Total Protein [6.4-8.4 g/dL] 3.0 g/dL *LOW* (07/17/18 12:11 PM) Albumin Lvl [3.5-5.0 g/dL] 5.0 g/dL *HI* (07/17/18 12:11 PM) Globulin [2.7-4.2 g/dL] 0.6 *LOW* (07/17/18 12:11 PM) A/G Ratio [0.7-1.6] 8.2 mg/dL *LOW* (07/17/18 12:11 PM) Calcium Lvl [8.5-10.5 mg/dL] 2.2 mg/dL (07/17/18 12:11 PM) Magnesium Lvl [1.8-2.4 mg/dL] 19 unit/L (07/17/18 12:11 PM) ALT [0-65 unit/L] 15 unit/L (07/17/18 12:11 PM) AST [0-37 unit/L] 151 unit/L *HI* (07/17/18 12:11 PM) Alk Phos [39-136 unit/L] 0.3 mg/dL (07/17/18 12:11 PM) Bili Total [0.2-1.3 mg/dL] 1Result Comment: [...] 3 Most recent to oldest [Reference Range]: 38 unit/L (07/17/18 12:11 PM) Total CK [12-191 unit/L] <0.02 ng/mL (07/18/18 4:36 AM) <0.02 ng/mL (07/17/18 9:06 PM) <0.02 ng/mL (07/17/18 12:11 PM) Troponin-I [0.00-0.40 ng/mL] 252 pg/mL *HI* (07/17/18 12:11 PM) proBNP [0-125 pg/mL] IMMUNOLOGY 1 2 3 Most recent to oldest [Reference Range]: Negative *NA* (07/17/18 5:57 PM) Hep Bs Ag [Negative] HEMATOLOGY 1 2 3 Most recent to oldest [Reference Range]: 5.9 K/CMM (07/17/18 12:11 PM) WBC [3.7-10.4 K/CMM] 3.37 M/CMM *LOW* (07/17/18 12:11 PM) RBC [4.20-5.40 M/CMM] 10.9 g/dL *LOW* (07/17/18 12:11 PM) Hgb [12.0-16.0 g/dL] 31.5 % *LOW* (07/17/18 12:11 PM) Hct [36.0-48.0 %] 93.6 fL (07/17/18 12:11 PM) MCV [80.0-98.0 fL] 32.4 pg *HI* (07/17/18 12:11 PM) MCH [27.0-31.0 pg] 34.6 g/dL (07/17/18 12:11 PM) MCHC [32.0-36.0 g/dL] 13.4 % (07/17/18 12:11 PM) RDW [11.5-14.5 %] 9.5 fL (07/17/18 12:11 PM) MPV [7.4-10.4 fL] 176 K/CMM (07/17/18 12:11 PM) Platelet [133-450 K/CMM] 66.6 % (07/17/18 12:11 PM) Segs [45.0-75.0 %] 19.1 % *LOW* (07/17/18 12:11 PM) Lymphocytes [20.0-40.0 %] 10.5 % (07/17/18 12:11 PM) Monocytes [2.0-12.0 %] 2.9 % (07/17/18 12:11 PM) Eosinophils [0.0-4.0 %] 0.9 % (07/17/18 12:11 PM) Basophils [0.0-1.0 %] 3.9 K/CMM (07/17/18 12:11 PM) Neutrophils # [1.5-8.1 K/CMM] 1.1 K/CMM (07/17/18 12:11 PM) Lymphocytes # [1.0-5.5 K/CMM] 0.6 K/CMM (07/17/18 12:11 PM) Monocytes # [0.0-0.8 K/CMM] 0.2 K/CMM (07/17/18 12:11 PM) Eosinophils # [0.0-0.5 K/CMM] 0.1 K/CMM (07/17/18 12:11 PM) Basophils # [0.0-0.2 K/CMM] 13.1 seconds (07/17/18 12:11 PM) PT [12.0-14.7 seconds] 0.99 (07/17/18 12:11 PM) INR [0.85-1.17] 46.1 seconds *HI* (07/17/18 12:11 PM) PTT [22.9-35.8 seconds] Immunizations Not Given [...] Reg Smoking Cessation Counseling No entered on: 07/17/18 Assessment and Plan Extracted from: Title: [facility] Author: Brody Weems Date: 07/18/18 Impression and Plan IMPRESSION: 1. Atypical chest pain, ACS ruled out 2. Dyspnea, CTA negative for PE 3. End-stage renal disease on hemodialysis 4. Chronic diastolic CHF with no evidence of acute exacerbation, BNP 252 5. Type 2 diabetes, uncontrolled with hyperglycemia 6. Hypertension 7. Chronic anemia of end-stage renal disease PLAN: 1. Nephrology consulted for hemodialysis today 2. Resume rest of home medications 3. Pain control and antiemetic 4. Glycemic control with Lantus and insulin sliding scale 5. We will plan to discharge patient home after dialysis if clinically doing better Extracted from: Title: General Admission H&P * Author: Guero Root Date: 07/17/18 Carmine SALDAÑA Impression and Plan 52-year-old female with history of hypertension, diabetes, CHF, end-stage renal disease on hemodialysis, presented to emergency room complaining of chest pain. 1. Acute chest pain. To rule out acute coronary syndrome. Chest CTA negative for PE and aortic dissection. Telemetry. Serial cardiac enzymes. Aspirin, statin. 2. End Stage Renal Disease on hemodialysis. Renal was consulted for hemodialysis. HD on MWF. [employer] Rudolph. Last HD today. Nephrology consulted. 3. Chronic diastolic congestive heart failure. Not in exacerbation. 4. Diabetes mellitus type 2, on insulin. Resume glargine at lower doses. 5. Hypertension, controlled. REsume BP meds as tolerated. 6. Chronic anemia. 7. DVT prophylaxis. Heparin subcutaneous.
--- OUTSIDE RECORDS SUMMARY | 2019-03-23 18:36 | XMS REPORT | Summary of Care ---
Author Author [facility] Organization [facility] Address Unknown Phone Unavailable Encounter KENROY Aguayo(JOVANNY) [id number] Date(s): 04/27/18 - 04/30/18 [facility] [address] [place] [address]- Discharge Disposition: Home or Self Care Attending Physician: Davon Galvan MD Admitting Physician: Davon Galvan MD Vital Signs 1 2 3 Most recent to oldest [Reference Range]: 167.64 cm (04/27/18 8:33 AM) Height 97.7 DegF (04/30/18 4:40 PM) 97.7 DegF (04/30/18 12:10 PM) 98.2 DegF (04/30/18 7:50 AM) Temperature Oral [96.4-99.1 DegF] 155/86 mmHg *HI* (04/30/18 5:14 PM) 163/74 mmHg *HI* (04/30/18 3:16 PM) 168/79 mmHg *HI* (04/30/18 2:00 PM) Blood Pressure [90-140/60-90 mmHg] 20 BRMIN (04/30/18 5:14 PM) 21 BRMIN *HI* (04/30/18 4:46 PM) 17 BRMIN (04/30/18 3:21 PM) Respiratory Rate [14-20 BRMIN] 83 bpm (04/29/18 8:27 AM) 81 bpm (04/29/18 8:17 AM) 80 bpm (04/29/18 3:36 AM) Peripheral Pulse Rate [60-100 bpm] 119.545 kg (04/27/18 8:33 AM) Weight 42.54 m2 (04/27/18 8:33 AM) Body Mass Index Problem List Condition [...] 7 10/20/14 Active 1heart 2Data migrated from [employer] on 07/11/15. - in urine 4Problem added by Discern Expert. 5Data migrated from [employer] on 07/11/15. 6Urine, 10/20/2014 7Problem added by Discern Expert. Allergies, Adverse Reactions, Alerts Substance Reaction Severity Status metformin Active influenza virus vaccine, Influenza virus vaccine Active inactivated Januvia Active Medications acetaminophen 650 mg, 2 tab, Route: PO, Drug form: TAB, Q4H, Dosing Weight 119.545, kg, PRN Pa in 1-3/Temp > 100.4 F, Start date: 04/27/18 13:10:00 CDT, Duration: 30 day, Stop date: 05/27/18 13:09:00 CDT Notes: Do not exceed 4 gm/day. (Same as: Tylenol) Start Date: 04/27/18 Stop Date: 04/30/18 Status: Discontinued aspirin 81 mg, 1 tab, Route: PO, Drug form: ECTAB, Daily, Dosing Weight 119.545, kg, Sta rt date: 04/27/18 14:00:00 CDT, Duration: 30 day, Stop date: 05/27/18 9:00:00 CD T Notes: Do not crush or chew.(Same As: Ecotrin) Start Date: 04/27/18 Stop Date: 04/30/18 Status: Discontinued atorvastatin 40 mg oral tablet 40 mg=1 tab, PO, Bedtime, 0 Refill(s) Start Date: 04/30/18 Status: Ordered Coreg 3.125 mg, 1 tab, Route: PO, Drug form: TAB, Q12H, Dosing Weight 119.545, kg, Sta rt date: 04/27/18 21:00:00 CDT, Duration: 30 day, Stop date: 05/27/18 9:00:00 CD T Notes: Give with food. (Same As: Coreg) Start Date: 04/27/18 Stop Date: 04/29/18 Status: Discontinued Dextrose 50% Syringe 25 gm, 50 mL, Route: IVP, Drug Form: INJ, Dosing Weight 119.545, kg, PRN, PRN Bl ood Glucose Results, Start date: 04/28/18 16:16:00 CDT, Duration: 30 day, Stop d ate: 05/28/18 16:15:00 CDT Start Date: 04/28/18 Stop Date: 04/30/18 Status: Discontinued Dextrose 50% Syringe 12.5 gm, 25 mL, Route: IVP, Drug Form: INJ, Dosing Weight 119.545, kg, PRN, PRN Blood Glucose Results, Start date: 04/28/18 16:16:00 CDT, Duration: 30 day, Stop date: 05/28/18 16:15:00 CDT Start Date: 04/28/18 Stop Date: 04/30/18 Status: Discontinued Dextrose 50% Syringe 12.5 gm, 25 mL, Route: IVP, Drug Form: INJ, Dosing Weight 119.545, kg, PRN, PRN Blood Glucose Results, Start date: 04/28/18 14:32:00 CDT, Duration: 30 day, Stop date: 05/28/18 14:31:00 CDT Start Date: 04/28/18 Stop Date: 04/28/18 Status: Discontinued Dextrose 50% Syringe 25 gm, 50 mL, Route: IVP, Drug Form: INJ, Dosing Weight 119.545, kg, PRN, PRN Bl ood Glucose Results, Start date: 04/28/18 14:32:00 CDT, Duration: 30 day, Stop d ate: 05/28/18 14:31:00 CDT Start Date: 04/28/18 Stop Date: 04/28/18 Status: Discontinued Dextrose 50% Syringe 25 gm, 50 mL, Route: IVP, Drug Form: INJ, Dosing Weight 119.545, kg, PRN, PRN Bl ood Glucose Results, Start date: 04/27/18 12:17:00 CDT, Duration: 30 day, Stop d ate: 05/27/18 12:16:00 CDT Start Date: 04/27/18 Stop Date: 04/28/18 Status: Deleted Dextrose 50% Syringe 12.5 gm, 25 mL, Route: IVP, Drug Form: INJ, Dosing Weight 119.545, kg, PRN, PRN Blood Glucose Results, Start date: 04/27/18 12:17:00 CDT, Duration: 30 day, Stop date: 05/27/18 12:16:00 CDT Start Date: 04/27/18 Stop Date: 04/28/18 Status: Deleted docusate 100 mg, 1 cap, Route: PO, Drug form: CAP, BID, Dosing Weight 119.545, kg, Start date: 04/27/18 17:00:00 CDT, Duration: 30 day, Stop date: 05/27/18 9:00:00 CDT Notes: (Same as: Colace) (Do Not Crush) Start Date: 04/27/18 Stop Date: 04/30/18 Status: Discontinued docusate sodium 100 mg oral capsule 100 mg=1 cap, PO, BID, 0 Refill(s) Start Date: 04/30/18 Status: Ordered Flexeril 5 mg, 0.5 tab, Route: PO, Drug form: TAB, ONCE, Dosing Weight 119.545, kg, Prior ity: NOW, Start date: 04/28/18 11:43:00 CDT, Stop date: 04/28/18 11:43:00 CDT Notes: (Same As: Flexeril) Start Date: 04/28/18 Stop Date: 04/28/18 Status: Completed glucagon 1 mg, Route: IM, Drug form: PDR/INJ, PRN, Dosing Weight 119.545, kg, PRN Blood G lucose Results, Start date: 04/28/18 16:16:00 CDT, Duration: 30 day, Stop date: 05/28/18 16:15:00 CDT Start Date: 04/28/18 Stop Date: 04/30/18 Status: Discontinued glucagon 1 mg, Route: IM, Drug form: PDR/INJ, PRN, Dosing Weight 119.545, kg, PRN Blood G lucose Results, Start date: 04/28/18 14:32:00 CDT, Duration: 30 day, Stop date: 05/28/18 14:31:00 CDT Start Date: 04/28/18 Stop Date: 04/28/18 Status: Discontinued glucagon 1 mg, Route: IM, Drug form: PDR/INJ, PRN, Dosing Weight 119.545, kg, PRN Blood G lucose Results, Start date: 04/27/18 12:17:00 CDT, Duration: 30 day, Stop date: 05/27/18 12:16:00 CDT Start Date: 04/27/18 Stop Date: 04/28/18 Status: Deleted heparin 5,000 unit, 1 mL, Route: SUB-Q, Drug form: INJ, Q8H, Dosing Weight 119.545, kg, Start date: 04/27/18 16:00:00 CDT, Stop date: 05/27/18 8:00:00 CDT Notes: porcine heparin Start Date: 04/27/18 Stop Date: 04/30/18 Status: Discontinued insulin lispro 7 unit, 0.07 mL, Route: SUB-Q, Drug form: SOLN, TID-Before Meals, Dosing Weight 119.545, kg, Priority: STAT, Start date: 04/28/18 12:22:00 CDT, Duration: 30 day , Stop date: 05/28/18 11:30:00 CDT Notes: (Same as: Humalog ) Roll in palms of hands gently; Do not shake `kathiorou sly. "Single Patient Use Only " WASTE: F/P - Black; E - [employer] [address] able for 28 days at room temperature.Expires in days from Da te Start Date: 04/28/18 Stop Date: 04/30/18 Status: Discontinued insulin lispro 5 unit, 0.05 mL, Route: SUB-Q, Drug form: SOLN, TID-Before Meals, Dosing Weight 119.545, kg, PRN Blood Glucose Results, Start date: 04/28/18 14:32:00 CDT, Durat ion: 30 day, Stop date: 05/28/18 14:31:00 CDT Notes: (Same as: Humalog ) Roll in palms of hands gently; Do not shake `vigorou sly. "Single Patient Use Only " WASTE: F/P - Black; E - [facility] [address] able for 28 days at room temperature.Expires in days from Da te Start Date: 04/28/18 Stop Date: 04/28/18 Status: Discontinued insulin lispro 3 unit, 0.03 mL, Route: SUB-Q, Drug form: SOLN, TID-Before Meals, Dosing Weight 119.545, kg, PRN Blood Glucose Results, Start date: 04/28/18 14:32:00 CDT, Durat ion: 30 day, Stop date: 05/28/18 14:31:00 CDT Notes: (Same as: Humalog ) Roll in palms of hands gently; Do not shake `vigorou sly. "Single Patient Use Only " WASTE: F/P - Black; E - [facility] [address] able for 28 days at room temperature.Expires in days from Da te Start Date: 04/28/18 Stop Date: 04/28/18 Status: Discontinued insulin lispro 1 unit, 0.01 mL, Route: SUB-Q, Drug form: SOLN, TID-Before Meals, Dosing Weight 119.545, kg, PRN Blood Glucose Results, Start date: 04/28/18 14:32:00 CDT, Durat ion: 30 day, Stop date: 05/28/18 14:31:00 CDT Notes: (Same as: Humalog ) Roll in palms of hands gently; Do not shake `vigorou sly. "Single Patient Use Only " WASTE: F/P - Black; E - [facility] [address] able for 28 days at room temperature.Expires in days from Da te Start Date: 04/28/18 Stop Date: 04/28/18 Status: Discontinued insulin lispro 2 unit, 0.02 mL, Route: SUB-Q, Drug form: SOLN, TID-Before Meals, Dosing Weight 119.545, kg, PRN Blood Glucose Results, Start date: 04/28/18 14:32:00 CDT, Durat ion: 30 day, Stop date: 05/28/18 14:31:00 CDT Notes: (Same as: Humalog ) Roll in palms of hands gently; Do not shake `vigorou sly. "Single Patient Use Only " WASTE: F/P - Black; E - [facility] [address] able for 28 days at room temperature.Expires in days from Da te Start Date: 04/28/18 Stop Date: 04/28/18 Status: Discontinued insulin lispro 4 unit, 0.04 mL, Route: SUB-Q, Drug form: SOLN, TID-Before Meals, Dosing Weight 119.545, kg, PRN Blood Glucose Results, Start date: 04/28/18 14:32:00 CDT, Durat ion: 30 day, Stop date: 05/28/18 14:31:00 CDT Notes: (Same as: Humalog ) Roll in palms of hands gently; Do not shake `vigorou sly. "Single Patient Use Only " WASTE: F/P - Black; E - [facility] [address] able for 28 days at room temperature.Expires in days from Da te Start Date: 04/28/18 Stop Date: 04/28/18 Status: Discontinued insulin lispro 4 unit, 0.04 mL, Route: SUB-Q, Drug form: SOLN, Bedtime, Dosing Weight 119.545, kg, PRN Blood Glucose Results, Start date: 04/27/18 12:17:00 CDT, Duration: 30 d ay, Stop date: 05/27/18 12:16:00 CDT Notes: (Same as: Humalog ) Roll in palms of hands gently; Do not shake `vigorou sly. "Single Patient Use Only " WASTE: F/P - Black; E - [facility] [address] able for 28 days at room temperature.Expires in days from Da te Start Date: 04/27/18 Stop Date: 04/30/18 Status: Discontinued insulin lispro 2 unit, 0.02 mL, Route: SUB-Q, Drug form: SOLN, Bedtime, Dosing Weight 119.545, kg, PRN Blood Glucose Results, Start date: 04/27/18 12:17:00 CDT, Duration: 30 d ay, Stop date: 05/27/18 12:16:00 CDT Notes: (Same as: Humalog ) Roll in palms of hands gently; Do not shake `vigorou sly. "Single Patient Use Only " WASTE: F/P - Black; E - [facility] [address] able for 28 days at room temperature.Expires in days from Da te Start Date: 04/27/18 Stop Date: 04/30/18 Status: Discontinued insulin lispro 3 unit, 0.03 mL, Route: SUB-Q, Drug form: SOLN, Bedtime, Dosing Weight 119.545, kg, PRN Blood Glucose Results, Start date: 04/27/18 12:17:00 CDT, Duration: 30 d ay, Stop date: 05/27/18 12:16:00 CDT Notes: (Same as: Humalog ) Roll in palms of hands gently; Do not shake `vigorou sly. "Single Patient Use Only " WASTE: F/P - Black; E - [facility] [address] able for 28 days at room temperature.Expires in days from Da te Start Date: 04/27/18 Stop Date: 04/30/18 Status: Discontinued insulin lispro 1 unit, 0.01 mL, Route: SUB-Q, Drug form: SOLN, Bedtime, Dosing Weight 119.545, kg, PRN Blood Glucose Results, Start date: 04/27/18 12:17:00 CDT, Duration: 30 d ay, Stop date: 05/27/18 12:16:00 CDT Notes: (Same as: Humalog ) Roll in palms of hands gently; Do not shake `vigorou sly. "Single Patient Use Only " WASTE: F/P - Black; E - [facility] [address] able for 28 days at room temperature.Expires in days from Da te Start Date: 04/27/18 Stop Date: 04/30/18 Status: Discontinued insulin lispro 4 unit, 0.04 mL, Route: SUB-Q, Drug form: SOLN, TID-Before Meals, Dosing Weight 119.545, kg, PRN Blood Glucose Results, Start date: 04/27/18 12:17:00 CDT, Durat ion: 30 day, Stop date: 05/27/18 12:16:00 CDT Notes: (Same as: Humalog ) Roll in palms of hands gently; Do not shake `vigorou sly. "Single Patient Use Only " WASTE: F/P - Black; E - [facility] [address] able for 28 days at room temperature.Expires in days from Da te Start Date: 04/27/18 Stop Date: 04/28/18 Status: Discontinued insulin lispro 3 unit, 0.03 mL, Route: SUB-Q, Drug form: SOLN, TID-Before Meals, Dosing Weight 119.545, kg, PRN Blood Glucose Results, Start date: 04/27/18 12:17:00 CDT, Durat ion: 30 day, Stop date: 05/27/18 12:16:00 CDT Notes: (Same as: Humalog ) Roll in palms of hands gently; Do not shake `vigorou sly. "Single Patient Use Only " WASTE: F/P - Black; E - [facility] [address] able for 28 days at room temperature.Expires in days from Da te Start Date: 04/27/18 Stop Date: 04/28/18 Status: Discontinued insulin lispro 5 unit, 0.05 mL, Route: SUB-Q, Drug form: SOLN, TID-Before Meals, Dosing Weight 119.545, kg, PRN Blood Glucose Results, Start date: 04/27/18 12:17:00 CDT, Durat ion: 30 day, Stop date: 05/27/18 12:16:00 CDT Notes: (Same as: Humalog ) Roll in palms of hands gently; Do not shake `vigorou sly. "Single Patient Use Only " WASTE: F/P - Black; E - [facility] [address] able for 28 days at room temperature.Expires in days from Da te Start Date: 04/27/18 Stop Date: 04/28/18 Status: Discontinued insulin lispro 2 unit, 0.02 mL, Route: SUB-Q, Drug form: SOLN, TID-Before Meals, Dosing Weight 119.545, kg, PRN Blood Glucose Results, Start date: 04/27/18 12:17:00 CDT, Durat ion: 30 day, Stop date: 05/27/18 12:16:00 CDT Notes: (Same as: Humalog ) Roll in palms of hands gently; Do not shake `vigorou sly. "Single Patient Use Only " WASTE: F/P - Black; E - [facility] [address] able for 28 days at room temperature.Expires in days from Da te Start Date: 04/27/18 Stop Date: 04/28/18 Status: Discontinued insulin lispro 1 unit, 0.01 mL, Route: SUB-Q, Drug form: SOLN, TID-Before Meals, Dosing Weight 119.545, kg, PRN Blood Glucose Results, Start date: 04/27/18 12:17:00 CDT, Durat ion: 30 day, Stop date: 05/27/18 12:16:00 CDT Notes: (Same as: Humalog ) Roll in palms of hands gently; Do not shake `vigorou sly. "Single Patient Use Only " WASTE: F/P - Black; E - [facility] [address] able for 28 days at room temperature.Expires in days from Da te Start Date: 04/27/18 Stop Date: 04/28/18 Status: Discontinued insulin lispro 4 unit, 0.04 mL, Route: SUB-Q, Drug form: SOLN, TID-Before Meals, Dosing Weight 119.545, kg, PRN Blood Glucose Results, Start date: 04/28/18 16:56:00 CDT, Durat ion: 30 day, Stop date: 05/28/18 16:55:00 CDT Notes: (Same as: Humalog ) Roll in palms of hands gently; Do not shake `vigorou sly. "Single Patient Use Only " WASTE: F/P - Black; E - [facility] [address] able for 28 days at room temperature.Expires in days from Da te Start Date: 04/28/18 Stop Date: 04/30/18 Status: Discontinued insulin lispro 8 unit, 0.08 mL, Route: SUB-Q, Drug form: SOLN, TID-Before Meals, Dosing Weight 119.545, kg, PRN Blood Glucose Results, Start date: 04/28/18 16:56:00 CDT, Durat ion: 30 day, Stop date: 05/28/18 16:55:00 CDT Notes: (Same as: Humalog ) Roll in palms of hands gently; Do not shake `vigorou sly. "Single Patient Use Only " WASTE: F/P - Black; E - [employer] [address] able for 28 days at room temperature.Expires in days from Da te Start Date: 04/28/18 Stop Date: 04/30/18 Status: Discontinued insulin lispro 10 unit, 0.1 mL, Route: SUB-Q, Drug form: SOLN, TID-Before Meals, Dosing Weight 119.545, kg, PRN Blood Glucose Results, Start date: 04/28/18 16:56:00 CDT, Durat ion: 30 day, Stop date: 05/28/18 16:55:00 CDT Notes: (Same as: Humalog ) Roll in palms of hands gently; Do not shake `vigorou sly. "Single Patient Use Only " WASTE: F/P - Black; E - [facility] [address] able for 28 days at room temperature.Expires in days from Da te Start Date: 04/28/18 Stop Date: 04/30/18 Status: Discontinued insulin lispro 6 unit, 0.06 mL, Route: SUB-Q, Drug form: SOLN, TID-Before Meals, Dosing Weight 119.545, kg, PRN Blood Glucose Results, Start date: 04/28/18 16:56:00 CDT, Durat ion: 30 day, Stop date: 05/28/18 16:55:00 CDT Notes: (Same as: Humalog ) Roll in palms of hands gently; Do not shake `vigorou sly. "Single Patient Use Only " WASTE: F/P - Black; E - [facility] [address] able for 28 days at room temperature.Expires in days from Da te Start Date: 04/28/18 Stop Date: 04/30/18 Status: Discontinued insulin lispro 2 unit, 0.02 mL, Route: SUB-Q, Drug form: SOLN, TID-Before Meals, Dosing Weight 119.545, kg, PRN Blood Glucose Results, Start date: 04/28/18 16:56:00 CDT, Durat ion: 30 day, Stop date: 05/28/18 16:55:00 CDT Notes: (Same as: Humalog ) Roll in palms of hands gently; Do not shake `vigorou sly. "Single Patient Use Only " WASTE: F/P - Black; E - [facility] [address] able for 28 days at room temperature.Expires in days from Da te Start Date: 04/28/18 Stop Date: 04/30/18 Status: Discontinued Lantus 100 units/mL 35 unit, 0.35 mL, Route: SUB-Q, Drug form: SOLN, BID, Dosing Weight 119.545, kg, Start date: 04/27/18 21:00:00 CDT, Duration: 30 day, Stop date: 05/27/18 9:00:00 CDT Notes: (Same as: Lantus)Do not hold insulin without contacting prescriberWASTE: F/P - Black; E - [employer] "single patient use only" Start Date: 04/27/18 Stop Date: 04/30/18 Status: Discontinued Lipitor 40 mg, 1 tab, Route: PO, Drug form: TAB, Bedtime, Dosing Weight 119.545, kg, Sta rt date: 04/28/18 21:00:00 CDT, Duration: 30 day, Stop date: 05/27/18 21:00:00 C DT Notes: (Same as: Lipitor) Start Date: 04/28/18 Stop Date: 04/30/18 Status: Discontinued lisinopril 10 mg, 2 tab, Route: PO, Drug form: TAB, Daily, Dosing Weight 119.545, kg, Start date: 04/28/18 9:00:00 CDT, Stop date: 05/27/18 9:00:00 CDT Notes: (Same as: Prinivil, Zestril) Start Date: 04/28/18 Stop Date: 04/30/18 Status: Discontinued midodrine 10 mg oral tablet 10 mg=1 tab, PO, BID, PRN Low Blood Pressure, 0 Refill(s) Start Date: 04/27/18 Status: Ordered morphine Sulfate 2 mg, 1 mL, Route: IVP, Drug form: SOLN, ONCE, Dosing Weight 119.545, kg, Priori ty: STAT, Start date: 04/27/18 9:17:00 CDT, Stop date: 04/27/18 9:17:00 CDT Start Date: 04/27/18 Stop Date: 04/27/18 Status: Completed Nephro-Erica Rx 1 tab, Route: PO, Drug Form: TAB, Dosing Weight 119.545, kg, Daily, Start date: 04/28/18 9:00:00 CDT, Duration: 30 day, Stop date: 05/27/18 9:00:00 CDT Notes: (Same as: Nephro-Erica Rx and Diatx) Give with food. Start Date: 04/28/18 Stop Date: 04/30/18 Status: Discontinued nitroglycerin SL Tab 0.4 mg, 1 tab, Route: SL, Drug form: TAB, Q5Min, Dosing Weight 119.545, kg, PRN Chest Pain, Start date: 04/29/18 14:37:00 CDT, Duration: 3 doses or times, Stop date: Limited # of times Notes: (Same as:Nitroquick, Nitrostat)"Do Not Crush" Sublingual tablet Start Date: 04/29/18 Stop Date: 04/30/18 Status: Discontinued [place] 5/325 oral tablet 1 tab, Route: PO, Drug Form: TAB, Dosing Weight 119.545, kg, ONCE, STAT, Start d ate: 04/29/18 10:05:00 CDT, Stop date: 04/29/18 10:05:00 CDT Notes: (Same as: [place] 325/5) Do not exceed 4gm/day of acetaminophen. Start Date: 04/29/18 Stop Date: 04/29/18 Status: Completed [place] 5/325 oral tablet 1 tab, Route: PO, Drug Form: TAB, Dosing Weight 119.545, kg, Q4H, PRN Pain Score 4-6, Start date: 04/29/18 14:00:00 CDT, Duration: 30 day, Stop date: 05/29/18 1 3:59:00 CDT Notes: (Same as: [place] 325/5) Do not exceed 4gm/day of acetaminophen. Start Date: 04/29/18 Stop Date: 04/30/18 Status: Discontinued Omnipaque 350 100 ml, Route: IV, Drug Form: SOLN, Dosing Weight 119.545, kg, ONCE, Start date: 04/28/18 8:46:00 CDT, Stop date: 04/28/18 8:46:00 CDT Notes: (same as:Omnipaque 350).WASTE: F/P - Black; E - [employer] Start Date: 04/28/18 Stop Date: 04/29/18 Status: Completed ondansetron 4 mg, 1 tab, Route: PO, Drug form: TABDIS, Q6H, Dosing Weight 119.545, kg, PRN N ausea & Vomiting, Start date: 04/27/18 13:10:00 CDT, Duration: 30 day, Stop date: 05/27/18 13:09:00 CDT Notes: (Same as: Zofran ODT) Start Date: 04/27/18 Stop Date: 04/30/18 Status: Discontinued ondansetron 4 mg, 2 mL, Route: IVP, Drug form: INJ, ONCE, Dosing Weight 119.545, kg, Priorit y: STAT, Start date: 04/27/18 9:17:00 CDT, Stop date: 04/27/18 9:17:00 CDT Notes: (Same as: Jeremiah) MEDICATION WASTE Product Size: 4 mgProduct Was yahir: ___ mg Start Date: 04/27/18 Stop Date: 04/27/18 Status: Discontinued pantoprazole 40 mg oral enteric coated tablet 40 mg=1 tab, PO, Before Breakfast, 0 Refill(s) Start Date: 04/30/18 Status: Ordered Protonix 40 mg, 1 tab, Route: PO, Drug form: ECTAB, Before Breakfast, Dosing Weight 119.5 45, kg, Start date: 04/29/18 10:30:00 CDT, Duration: 30 day, Stop date: 05/29/18 7:30:00 CDT Notes: Tablet should not be chewed or crushed.(Same as: Protonix) Start Date: 04/29/18 Stop Date: 04/30/18 Status: Discontinued Reglan 10 mg, Route: IVP, Drug form: INJ, ONCE, Dosing Weight 119.545, kg, Priority: ST AT, Start date: 04/27/18 10:15:00 CDT, Stop date: 04/27/18 10:15:00 CDT Start Date: 04/27/18 Stop Date: 04/27/18 Status: Completed Saline Flush 0.9% 10 mL, Route: IVP, Drug Form: INJ, Dosing Weight 119.545, kg, PRN, PRN Line Flus h, Start date: 04/27/18 9:17:00 CDT, Duration: 30 day, Stop date: 05/27/18 9:16: 00 CDT Notes: (Same as: BD Posiflush) Start Date: 04/27/18 Stop Date: 04/28/18 Status: Discontinued Tylenol with Codeine #3 oral tablet 1 tab, Route: PO, Drug Form: TAB, Dosing Weight 119.545, kg, Q4H, PRN Pain Score 1-3, Start date: 04/29/18 10:13:00 CDT, Duration: 30 day, Stop date: 05/29/18 1 0:12:00 CDT Notes: Do not exceed 4gm/day of acetaminophen. (Same as: Tylenol with Codeine # 3) Start Date: 04/29/18 Stop Date: 04/30/18 Status: Discontinued Results ELECTROLYTES 1 2 3 Most recent to oldest [Reference Range]: 137 mEq/L (04/30/18 4:33 AM) 140 mEq/L (04/29/18 9:50 AM) 140 mEq/L (04/29/18 5:47 AM) Sodium Lvl [135-145 mEq/L] 4.4 mEq/L (04/30/18 4:33 AM) 3.7 mEq/L (04/29/18 9:50 AM) 4.5 mEq/L (04/29/18 5:47 AM) Potassium Lvl [3.5-5.1 mEq/L] 105 mEq/L (04/30/18 4:33 AM) 105 mEq/L (04/29/18 9:50 AM) 107 mEq/L (04/29/18 5:47 AM) Chloride Lvl [95-109 mEq/L] 24 mEq/L (04/30/18 4:33 AM) 29 mEq/L (04/29/18 9:50 AM) 22 mEq/L *LOW* (04/29/18 5:47 AM) CO2 [24-32 mEq/L] 12.4 mEq/L (04/30/18 4:33 AM) 9.7 mEq/L *LOW* (04/29/18 9:50 AM) 15.5 mEq/L (04/29/18 5:47 AM) AGAP [10.0-20.0 mEq/L] CHEM PANEL 1 2 3 Most recent to oldest [Reference Range]: 3.03 mg/dL *HI* (04/30/18 4:33 AM) 1.86 mg/dL *HI* (04/29/18 9:50 AM) 3.03 mg/dL *HI* (04/29/18 5:47 AM) Creatinine Lvl [0.50-1.40 mg/dL] 16 mL/min/1.73m2 1 *NA* (04/30/18 4:33 AM) 28 mL/min/1.73m2 2 *NA* (04/29/18 9:50 AM) 16 mL/min/1.73m2 3 *NA* (04/29/18 5:47 AM) eGFR 57 mg/dL *HI* (04/30/18 4:33 AM) 37 mg/dL *HI* (04/29/18 9:50 AM) 71 mg/dL *HI* (04/29/18 5:47 AM) BUN [7-22 mg/dL] 20 (04/29/18 9:50 AM) 38 *HI* (04/27/18 9:21 AM) B/C Ratio [6-25] 255 mg/dL *HI* (04/30/18 4:33 AM) 85 mg/dL (04/29/18 9:50 AM) 159 mg/dL *HI* (04/29/18 5:47 AM) Glucose Lvl [70-99 mg/dL] 7.0 g/dL (04/29/18 9:50 AM) 7.8 g/dL (04/27/18 9:21 AM) Total Protein [6.4-8.4 g/dL] 3.5 g/dL (04/29/18 9:50 AM) 3.0 g/dL *LOW* (04/27/18 9:21 AM) Albumin Lvl [3.5-5.0 g/dL] 3.5 g/dL (04/29/18 9:50 AM) 4.8 g/dL *HI* (04/27/18 9:21 AM) Globulin [2.7-4.2 g/dL] 1.0 (04/29/18 9:50 AM) 0.6 *LOW* (04/27/18 9:21 AM) A/G Ratio [0.7-1.6] 8.3 mg/dL *LOW* (04/30/18 4:33 AM) 8.3 mg/dL *LOW* (04/29/18 9:50 AM) 8.1 mg/dL *LOW* (04/29/18 5:47 AM) Calcium Lvl [8.5-10.5 mg/dL] 2.2 mg/dL (04/27/18 9:21 AM) Magnesium Lvl [1.8-2.4 mg/dL] 23 unit/L (04/29/18 9:50 AM) 20 unit/L (04/27/18 9:21 AM) ALT [0-65 unit/L] 10 unit/L (04/29/18 9:50 AM) 12 unit/L (04/27/18 9:21 AM) AST [0-37 unit/L] 126 unit/L (04/29/18 9:50 AM) 157 unit/L *HI* (04/27/18 9:21 AM) Alk Phos [39-136 unit/L] 0.3 mg/dL (04/29/18 9:50 AM) 0.3 mg/dL (04/27/18 9:21 AM) Bili Total [0.2-1.3 mg/dL] 127 unit/L (04/27/18 9:21 AM) Lipase Lvl [73-393 unit/L] 1Result Comment: The eGFR is calculated using [...] 3 Most recent to oldest [Reference Range]: 33 unit/L (04/29/18 9:50 AM) 34 unit/L (04/27/18 9:21 AM) Total CK [12-191 unit/L] 1.1 ng/mL (04/27/18 9:21 AM) CK MB [0.5-3.6 ng/mL] 3.2 *HI* (04/27/18 9:21 AM) CK MB Index [0.0-2.5] <0.02 ng/mL (04/29/18 9:50 AM) <0.02 ng/mL (04/27/18 7:43 PM) <0.02 ng/mL (04/27/18 2:25 PM) Troponin-I [0.00-0.40 ng/mL] 11 pg/mL (04/27/18 9:21 AM) BNP [<=100 pg/mL] SPECIAL CHEMISTRY 1 2 3 Most recent to oldest [Reference Range]: 9.8 % *HI* (04/27/18 7:43 PM) Hgb A1C [<=5.6 %] IMMUNOLOGY 1 2 3 Most recent to oldest [Reference Range]: Negative (04/27/18 12:30 PM) Hep Bs Ag [Negative] HEMATOLOGY 1 2 3 Most recent to oldest [Reference Range]: 4.9 K/CMM (04/29/18 9:50 AM) 5.6 K/CMM (04/29/18 5:47 AM) 4.8 K/CMM (04/28/18 6:34 AM) WBC [3.7-10.4 K/CMM] 3.42 M/CMM *LOW* (04/29/18 9:50 AM) 3.44 M/CMM *LOW* (04/29/18 5:47 AM) 3.76 M/CMM *LOW* (04/28/18 6:34 AM) RBC [4.20-5.40 M/CMM] 10.1 g/dL *LOW* (04/29/18 9:50 AM) 10.2 g/dL *LOW* (04/29/18 5:47 AM) 11.4 g/dL *LOW* (04/28/18 6:34 AM) Hgb [12.0-16.0 g/dL] 31.1 % *LOW* (04/29/18 9:50 AM) 31.6 % *LOW* (04/29/18 5:47 AM) 35.2 % *LOW* (04/28/18 6:34 AM) Hct [36.0-48.0 %] 90.9 fL (04/29/18 9:50 AM) 91.8 fL (04/29/18 5:47 AM) 93.4 fL (04/28/18 6:34 AM) MCV [80.0-98.0 fL] 29.4 pg (04/29/18 9:50 AM) 29.7 pg (04/29/18 5:47 AM) 30.3 pg (04/28/18 6:34 AM) MCH [27.0-31.0 pg] 32.4 g/dL (04/29/18 9:50 AM) 32.3 g/dL (04/29/18 5:47 AM) 32.4 g/dL (04/28/18 6:34 AM) MCHC [32.0-36.0 g/dL] 15.3 % *HI* (04/29/18 9:50 AM) 15.8 % *HI* (04/29/18 5:47 AM) 15.6 % *HI* (04/28/18 6:34 AM) RDW [11.5-14.5 %] 8.8 fL (04/29/18 9:50 AM) 9.2 fL (04/29/18 5:47 AM) 9.1 fL (04/28/18 6:34 AM) MPV [7.4-10.4 fL] 189 K/CMM (04/29/18 9:50 AM) 179 K/CMM (04/29/18 5:47 AM) 166 K/CMM (04/28/18 6:34 AM) Platelet [133-450 K/CMM] 64.5 % (04/29/18 9:50 AM) 61.9 % (04/29/18 5:47 AM) 67.4 % (04/28/18 6:34 AM) Segs [45.0-75.0 %] 22.0 % (04/29/18 9:50 AM) 21.8 % (04/29/18 5:47 AM) 17.0 % *LOW* (04/28/18 6:34 AM) Lymphocytes [20.0-40.0 %] 9.2 % (04/29/18 9:50 AM) 11.3 % (04/29/18 5:47 AM) 10.8 % (04/28/18 6:34 AM) Monocytes [2.0-12.0 %] 3.6 % (04/29/18 9:50 AM) 4.1 % *HI* (04/29/18 5:47 AM) 3.7 % (04/28/18 6:34 AM) Eosinophils [0.0-4.0 %] 0.7 % (04/29/18 9:50 AM) 0.9 % (04/29/18 5:47 AM) 1.1 % *HI* (04/28/18 6:34 AM) Basophils [0.0-1.0 %] 3.2 K/CMM (04/29/18 9:50 AM) 3.5 K/CMM (04/29/18 5:47 AM) 3.2 K/CMM (04/28/18 6:34 AM) Segs-Bands # [1.5-8.1 K/CMM] 1.1 K/CMM (04/29/18 9:50 AM) 1.2 K/CMM (04/29/18 5:47 AM) 0.8 K/CMM *LOW* (04/28/18 6:34 AM) Lymphocytes # [1.0-5.5 K/CMM] 0.5 K/CMM (04/29/18 9:50 AM) 0.6 K/CMM (04/29/18 5:47 AM) 0.5 K/CMM (04/28/18 6:34 AM) Monocytes # [0.0-0.8 K/CMM] 0.2 K/CMM (04/29/18 9:50 AM) 0.2 K/CMM (04/29/18 5:47 AM) 0.2 K/CMM (04/28/18 6:34 AM) Eosinophils # [0.0-0.5 K/CMM] 0.1 K/CMM (04/28/18 6:34 AM) Basophils # [0.0-0.2 K/CMM] 13.7 seconds (04/27/18 9:21 AM) PT [12.0-14.7 seconds] 1.05 (04/27/18 9:21 AM) INR [0.85-1.17] 28.1 seconds (04/27/18 9:21 AM) PTT [22.9-35.8 seconds] Immunizations Not Given Vaccine [...] Reg Smoking Cessation Counseling No entered on: 04/27/18 Assessment and Plan Extracted from: Title: Clinical Document Author: Andrew Costello MD Date: 04/30/18 PM&R PROGRESS NOTE CHIEF COMPLAINT IDENTIFICATION: A 62-year-old lady being seen for ongoing rehabilitation needs in the setting of morbid obesity, disuse atrophy cardiopulmonary intolerance to activity, admitted with chest pain. INTERVAL EVENTS AND SUBJECTIVE: Back to baseline. Cath was negative. Denies fevers, chills, nausea, vomiting, shortness of breath, chest pain, palpitations, headaches, dizziness. Pain is not limiting therapies. No bowel or bladder complaints. PHYSICAL EXAMINATION: Vitals and Temp: VitalsTmp(F)[id number] 04/30 11:21----[id number]-----[id number]--- 04/30 10:30----[id number]--- 04/30 09:00----[id number]--- 04/30 08:00----[id number]--100--- 04/30 07:5098.2 24 Hr Tmax: 98.7F (37.06c) at 04/30 04:00Vital Signs are the last 5 in the past 48 hours. GENERAL: Morbidly obese, no apparent distress, sitting at the bedside. PSYCH: She is alert, oriented, appropriate. HEENT: Pupils equal, round, reactive to light. Extraocular muscles intact. CARDIOVASCULAR: 2+ bilateral upper extremity pulses. Regular rate and rhythm. PULMONARY: Respirations unlabored without dyspnea. ABDOMEN: Obese, doughy, nontender, nondistended. GENITOURINARY: No [place]. SKIN: No breakdown or rashes. NEUROMUSCULOSKELETAL: Cranial nerves II-XII are intact. Strength is 4/5 in the bilateral upper extremities with the exception of wrist extension and finger flexion which is 2 to 3/5. Some breakaway weakness. Left side strength is approximately 4/5. No hypertonicity or clonus. LABORATORY DATA: Labs (Last four charted values) WBC 4.9(APR 29)5.6(APR 29)4.8(APR 28)4.9(APR 27) Hgb L 10.1(APR 29)L 10.2(APR 29)L 11.4(APR 12)L 10.7(APR 27) Hct L 31.1(APR 29)L 31.6(APR 29)L 35.2(APR 12)L 32.5(APR 27) Plt 189(APR 29)179(APR 29)166(APR 12)187(JOSE ELIAS 11) Na 137(JOSE ELIAS 14)140(JOSE ELIAS 13)140(JOSE ELIAS 13)L 133(JOSE ELIAS 12) K 4.4(JOSE ELIAS 14)3.7(JOSE ELIAS 13)4.5(JOSE ELIAS 13)4.8(JOSE ELIAS 12) CO2 24(JOSE ELIAS 14)29(JOSE ELIAS 13)L 22(JOSE ELIAS 13)L 20(JOSE ELIAS 12) Cl 105(JOSE ELIAS 14)105(JOSE ELIAS 13)107(JOSE ELIAS 13)106(JOSE ELIAS 12) Cr H 3.03(JOSE ELIAS 14)H 1.86(JOSE ELIAS 13)H 3.03(JOSE ELIAS 13)H 2.58(JOSE ELIAS 12) BUN H 57(JOSE ELIAS 14)H 37(JOSE ELIAS 13)H 71(JOSE ELIAS 13)H 47(JOSE ELIAS 12) Glucose Random H 255(JOSE ELIAS 14)85(JOSE ELIAS 13)H 159(JOSE ELIAS 13)H 337(JOSE ELIAS 12) Mg 2.2(APR 11) Ca L 8.3(JOSE ELIAS 14)L 8.3(JOSE ELIAS 13)L 8.1(JOSE ELIAS 13)L 7.8(APR 12) PT 13.7(APR 27) INR 1.05(APR 27) PTT 28.1(APR 27) Troponin <0.02(APR 13)<0.02(APR 11)<0.02(APR 11)<0.02(APR 27) CK MB 1.1(APR 27) Total CK 33(APR 29)34(APR 27) IMAGING STUDIES: No new imaging. 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 3. Morbid obesity. 4. Right-sided weakness with thin consistencies. 5. Disability behaviors. 6. Hypertension. 7. Nonobstructive coronary artery disease. 8. ESRD on hemodialysis. 9. Uncontrolled diabetes mellitus. 10. Altered mobility, ADLs, IADLs, weakness, incoordination. RECOMMENDATIONS: 1. Cardiac cath report reviewed. No major abnormalities. 2. No evidence for ACS. 3. We are continuing to monitor her general neurological examination. MRI has previously been normal. Continue general risk factor reduction. Continue working to prevent complications of bed rest and immobility. 4. Resuming Physical therapy and Occupational therapy to progress mobility, ADL/IADL, caregiver training and eqpt considerations. 5. Recommending SNF for 1-2 hours of therapy per day with 24 hour nursing care and support. Thank you for involving me in her care. Extracted from: Title: Clinical Document Author: Hector Mercedes MD Date: 04/27/18 Date of admission: 04/27/18 Reason for admission 1. Atypical chest pain, rule out ACS History of present illness Karen is a 62-year-old woman with end-stage renal disease on Friday dialysis, nonobstructive coronary artery disease and diastolic congestive heart failure, hypertension and diabetes mellitus on insulin who comes in for evaluation of shortness of breath for 3-4 days, and chest pain that started this morning. Patient reports the chest pain is pressure-like in nature and located to the anterior chest externally. The chest pain is constant and unchanged with exertion. The pain is worse with deep inspiration. In the ER the patient is found to have her set of cardiac enzymes negative an EKG without any acute findings. Patient reports that she has had all her dialysis session and has not missed any sessions. She feels her symptoms are worse after dialysis particularly the nausea and shortness of breath. Denies having any cough. Patient feels like she is still over her dry weight of 210 pounds currently at 260 pounds. Reports having orthopnea. Denies any headache or vision changes. Denies having any abdominal pain or diarrhea. Denies any pain with urination. Denies having any new skin rashes. Past medical history 1. End-stage renal disease 2. Diabetes mellitus on insulin 3. Coronary artery disease, nonobstructive 4. Hypertension 5. Acid reflux disease Medications At Home: None Past surgical history 1. Hysterectomy, open abdominal surgery status post bladder mesh infection? 3. Cholecystectomy 4. Right tunneled catheter placement. Next Social history 1. Never smoker, 2. Denies any alcohol use Allergies: Metformin, Januvia, influenza virus vaccine. Review systems: As per HPI Family history: Reviewed but noncontributory Physical examination Vitals: Blood pressure 141/75, temperature 97.4, heart rate 77, respiratory 18, 98% room air. Gen: AAOX3, NAD Neuro: motor 5/5 in upper extremities, CN II-XII grossly intact. CV: RRR, S1 and S2 Lung: CTA bilaterally, no crackles or wheezing heard. Abdomen: Non-distended, non-tender, no rebound or gaurding, bowel sounds are present. : no supraputic region tenderness. No CVA region tenderness. EXT: no peripheral edema. Skin: no rashes or other skin color changes. Diagnostic studies Chest x-ray: No focal infiltrates within the lung. EKG: Reviewed by me: Sinus rhythm, right bundle, premature ventricular complexes. Laboratory data Sodium 137, creatinine of 2, cardiac enzymes negative, hemoglobin of 10. Assessment and plan Patient is a 62-year-old woman who is being admitted for evaluation of atypical chest pain. Acute issues *Atypical chest pain *End-stage renal disease on hemodialysis, not volume overloaded now *Chronic diastolic congestive heart failure *Nonobstructive coronary disease *Diabetes mellitus, on insulin *Primary hypertension *Anemia due to end-stage renal disease. Atypical chest pain Has a pleuritic component, no hypoxia. Constant pain. Obtain CT angiogram to rule out PE. Scheduled time cardiac enzymes. Echocardiogram this admission Cardiology evaluation. End-stage renal disease Not volume overloaded. BNP is normal. Hemodialysis per nephrology service. Chronic diastolic congestive heart failure Does not appear to be volume overloaded. Primary hypertension Systolic in the 140s. Continue home medications. Diabetes mellitus *Lantus and insulin sliding scale. Anemia due to end-stage renal disease Transfuse if hemoglobin below 7. DVT prophylaxis: SCD Disposition: Likely 1 2 midnights
--- OUTSIDE RECORDS SUMMARY | 2019-03-23 18:36 | XMS REPORT | Summary of Care ---
Author Author [facility] Organization [facility] Address Unknown Phone Unavailable Encounter KENROY Aguayo(JOVANNY) [id number] Date(s): 11/19/17 - 11/22/17 [facility] [address] [place] [address]- Discharge Disposition: Home or Self Care Attending Physician: Faisal Joseph MD Admitting Physician: Faisal Joseph MD Vital Signs 1 2 3 Most recent to oldest [Reference Range]: 167.64 cm (11/20/17 4:00 AM) 167.64 cm (11/19/17 9:17 PM) Height 97.4 DegF (11/22/17 11:43 AM) 97.5 DegF (11/22/17 8:53 AM) 98.6 DegF (11/22/17 4:00 AM) Temperature Oral [96.4-99.1 DegF] 179/83 mmHg *HI* (11/22/17 11:43 AM) 159/77 mmHg *HI* (11/22/17 8:53 AM) 145/80 mmHg *HI* (11/22/17 4:00 AM) Blood Pressure [90-140/60-90 mmHg] 18 BRMIN (11/22/17 11:43 AM) 18 BRMIN (11/22/17 8:53 AM) 16 BRMIN (11/22/17 4:00 AM) Respiratory Rate [14-20 BRMIN] 73 bpm (11/22/17 11:43 AM) 70 bpm (11/22/17 8:53 AM) 88 bpm (11/22/17 4:00 AM) Peripheral Pulse Rate [60-100 bpm] 131.227 kg (11/20/17 4:00 AM) 105.455 kg (11/19/17 9:17 PM) Weight 46.69 m2 (11/20/17 4:00 AM) 37.52 m2 (11/19/17 9:17 PM) Body Mass Index Problem List Condition [...] 7 10/20/14 Active 1heart 2Data migrated from [facility] on 07/11/15. - in urine 4Problem added by Discern Expert. 5Data migrated from [employer] on 07/11/15. 6Urine, 10/20/2014 7Problem added by Discern Expert. Allergies, Adverse Reactions, Alerts Substance Reaction Severity Status metformin Active influenza virus vaccine, Influenza virus vaccine Active inactivated Januvia Active Medications acetaminophen 325 mg, 1 tab, Route: PO, Drug form: TAB, Q4H, Dosing Weight 105.455, kg, PRN Pa in Score 4-6, Start date: 11/20/17 1:52:00 LOOM SETTER, Duration: 30 day, Stop date: 02/01 1:51:00 LOOM SETTER Notes: Do not exceed 4 gm/day. (Same as: Tylenol) Start Date: 11/20/17 Stop Date: 11/22/17 Status: Discontinued aspirin 81 mg tablet, enteric coated 81 mg, 1 tab, Route: PO, Drug form: ECTAB, Daily, Dosing Weight 131.227, kg, Sta rt date: 11/21/17 13:00:00 LOOM SETTER, Duration: 30 day, Stop date: 12/21/17 9:00:00 CS T Notes: Do not crush or chew.(Same As: Ecotrin) Start Date: 11/21/17 Stop Date: 11/22/17 Status: Discontinued carvedilol 3.125 mg, 1 tab, Route: PO, Drug form: TAB, BID, Dosing Weight 131.227, kg, Star t date: 11/21/17 21:00:00 LOOM SETTER, Duration: 30 day, Stop date: 12/21/17 9:00:00 LOOM SETTER Notes: Give with food. (Same As: Coreg) Start Date: 11/21/17 Stop Date: 11/22/17 Status: Discontinued cefTRIAXone 1 gm, Route: IVPB, ONCE, Dosing Weight 105.455, kg, Priority: STAT, Start date: 11/19/17 23:27:00 LOOM SETTER, Stop date: 11/19/17 23:27:00 LOOM SETTER, ABX Indication: Urinary Tract Infection Start Date: 11/19/17 Stop Date: 11/19/17 Status: Discontinued ciprofloxacin 400 mg, 200 mL, Route: IVPB, Drug form: INJ, ONCE, Dosing Weight 105.455, kg, Pr iority: STAT, Start date: 11/19/17 23:28:00 LOOM SETTER, Stop date: 11/19/17 23:28:00 CS T, ABX Indication: Urinary Tract Infection Notes: Do not refrigerate Start Date: 11/19/17 Stop Date: 11/20/17 Status: Completed Dextrose 50% Syringe 25 gm, 50 mL, Route: IVP, Drug Form: INJ, Dosing Weight 105.455, kg, PRN, PRN Bl ood Glucose Results, Start date: 11/20/17 1:53:00 LOOM SETTER, Duration: 30 day, Stop da te: 12/20/17 1:52:00 LOOM SETTER Start Date: 11/20/17 Stop Date: 11/22/17 Status: Discontinued Dextrose 50% Syringe 12.5 gm, 25 mL, Route: IVP, Drug Form: INJ, Dosing Weight 105.455, kg, PRN, PRN Blood Glucose Results, Start date: 11/20/17 1:53:00 LOOM SETTER, Duration: 30 day, Stop date: 12/20/17 1:52:00 LOOM SETTER Start Date: 11/20/17 Stop Date: 11/22/17 Status: Discontinued docusate 100 mg, 1 cap, Route: PO, Drug form: CAP, BID, Dosing Weight 105.455, kg, Start date: 11/20/17 9:00:00 LOOM SETTER, Duration: 30 day, Stop date: 12/19/17 17:00:00 LOOM SETTER Notes: (Same as: Colace) (Do Not Crush) Start Date: 11/20/17 Stop Date: 11/22/17 Status: Discontinued glucagon 1 mg, Route: IM, Drug form: PDR/INJ, PRN, Dosing Weight 105.455, kg, PRN Blood G lucose Results, Start date: 11/20/17 1:53:00 LOOM SETTER, Duration: 30 day, Stop date: 0 12/20/17 1:52:00 LOOM SETTER Start Date: 11/20/17 Stop Date: 11/22/17 Status: Discontinued hydrALAZINE 10 mg, 0.5 mL, Route: IV, Drug form: INJ, ONCE, Dosing Weight 131.227, kg, Prior ity: STAT, Start date: 11/21/17 3:01:00 LOOM SETTER, Stop date: 11/21/17 3:01:00 LOOM SETTER Notes: (Same as: Apresoline)Push over 5 minutes Start Date: 11/21/17 Stop Date: 11/21/17 Status: Completed hyoscyamine 0.125 mg, 1 tab, Route: PO, Drug form: TAB, Q4H, Dosing Weight 131.227, kg, PRN Spasm, Start date: 11/21/17 11:50:00 LOOM SETTER, Duration: 30 day, Stop date: 12/21/17 11:49:00 LOOM SETTER Notes: (Same as: Levsin) Take 30 min before meal Start Date: 11/21/17 Stop Date: 11/22/17 Status: Discontinued insulin detemir Route: SUB-Q, Drug form: SOLN, BID, Dosing Weight 131.227, kg, Start date: 11/21 17:00:00 LOOM SETTER, Duration: 30 day, Stop date: 12/21/17 9:00:00 LOOM SETTER Start Date: 11/21/17 Stop Date: 11/21/17 Status: Deleted insulin glargine 35 unit, 0.35 mL, Route: SUB-Q, Drug form: SOLN, BID, Start date: 11/21/17 21:00 :00 LOOM SETTER, Duration: 30 day, Stop date: 12/21/17 9:00:00 LOOM SETTER Notes: (Same as: Thea)Do not hold insulin without contacting prescriberWASTE: F/P - Black; E - Municipal Trash Bin "single patient use only" Start Date: 11/21/17 Stop Date: 11/22/17 Status: Discontinued insulin lispro 8 unit, 0.08 mL, Route: SUB-Q, Drug form: SOLN, TID-Before Meals, Dosing Weight 105.455, kg, PRN Blood Glucose Results, Start date: 11/20/17 1:53:00 LOOM SETTER, Durati on: 30 day, Stop date: 12/20/17 1:52:00 LOOM SETTER Notes: Roll in palms of hands gently; Do not shake `vigorously. (Same as: Gayathri og )"Single Patient Use Only "WASTE: F/P - Black; E - Municipal Trash Bin Stabl e for 28 days at room temperature.Expires in days from Date Start Date: 11/20/17 Stop Date: 11/22/17 Status: Discontinued insulin lispro 10 unit, 0.1 mL, Route: SUB-Q, Drug form: SOLN, TID-Before Meals, Dosing Weight 105.455, kg, PRN Blood Glucose Results, Start date: 11/20/17 1:53:00 LOOM SETTER, Durati on: 30 day, Stop date: 12/20/17 1:52:00 LOOM SETTER Notes: Roll in palms of hands gently; Do not shake `vigorously. (Same as: Gayathri og )"Single Patient Use Only "WASTE: F/P - Black; E - Municipal Trash Bin Stabl e for 28 days at room temperature.Expires in days from Date Start Date: 11/20/17 Stop Date: 11/22/17 Status: Discontinued insulin lispro 6 unit, 0.06 mL, Route: SUB-Q, Drug form: SOLN, TID-Before Meals, Dosing Weight 105.455, kg, PRN Blood Glucose Results, Start date: 11/20/17 1:53:00 LOOM SETTER, Durati on: 30 day, Stop date: 12/20/17 1:52:00 LOOM SETTER Notes: Roll in palms of hands gently; Do not shake `vigorously. (Same as: Humal og )"Single Patient Use Only "WASTE: F/P - Black; E - Municipal Trash Bin Stabl e for 28 days at room temperature.Expires in days from Date Start Date: 11/20/17 Stop Date: 11/22/17 Status: Discontinued insulin lispro 2 unit, 0.02 mL, Route: SUB-Q, Drug form: SOLN, TID-Before Meals, Dosing Weight 105.455, kg, PRN Blood Glucose Results, Start date: 11/20/17 1:53:00 LOOM SETTER, Durati on: 30 day, Stop date: 12/20/17 1:52:00 LOOM SETTER Notes: Roll in palms of hands gently; Do not shake `vigorously. (Same as: Gayathri ann )"Single Patient Use Only "WASTE: F/P - Black; E - Municipal Trash Bin Stabl e for 28 days at room temperature.Expires in days from Date Start Date: 11/20/17 Stop Date: 11/22/17 Status: Discontinued insulin lispro 4 unit, 0.04 mL, Route: SUB-Q, Drug form: SOLN, TID-Before Meals, Dosing Weight 105.455, kg, PRN Blood Glucose Results, Start date: 11/20/17 1:53:00 LOOM SETTER, Durati on: 30 day, Stop date: 12/20/17 1:52:00 LOOM SETTER Notes: Roll in palms of hands gently; Do not shake `vigorously. (Same as: Gayathri ann )"Single Patient Use Only "WASTE: F/P - Black; E - Municipal Trash Bin Stabl e for 28 days at room temperature.Expires in days from Date Start Date: 11/20/17 Stop Date: 11/22/17 Status: Discontinued Insulin regular 5 unit, Route: SUB-Q, ONCE, Dosing Weight 105.455, kg, Priority: STAT, Start rhea e: 11/20/17 1:17:00 LOOM SETTER, Stop date: 11/20/17 1:17:00 LOOM SETTER Start Date: 11/20/17 Stop Date: 11/20/17 Status: Completed Keflex 500 mg oral capsule 500 mg=1 cap, PO, BID, X 10 day, # 20 cap, 0 Refill(s), Pharmacy: [facility] [id number] Start Date: 11/22/17 Stop Date: 12/02/17 Status: Ordered lactulose 10 g/15 mL oral syrup 20 gm, 30 mL, Route: PO, Drug form: SYRP, Daily, Dosing Weight 131.227, kg, PRN Constipation, Start date: 11/21/17 11:50:00 LOOM SETTER, Duration: 30 day, Stop date: 11:49:00 LOOM SETTER Notes: (Same as:Chronulac) Start Date: 11/21/17 Stop Date: 11/22/17 Status: Discontinued Lasix 40 mg oral tablet 40 mg, 1 tab, Route: PO, Drug form: TAB, BID, Dosing Weight 131.227, kg, Start d ate: 11/21/17 17:00:00 LOOM SETTER, Duration: 30 day, Stop date: 12/21/17 9:00:00 LOOM SETTER Notes: (Same as: Lasix) May cause GI upset. Give with food or milk. Start Date: 11/21/17 Stop Date: 11/22/17 Status: Discontinued lisinopril 10 mg, 2 tab, Route: PO, Drug form: TAB, Daily, Dosing Weight 131.227, kg, Start date: 11/21/17 13:00:00 LOOM SETTER, Duration: 30 day, Stop date: 12/21/17 9:00:00 LOOM SETTER Notes: (Same as: Prinivil, Zestril) Start Date: 11/21/17 Stop Date: 11/22/17 Status: Discontinued ondansetron 4 mg, 2 mL, Route: IVP, Drug form: INJ, Q6H, Dosing Weight 105.455, kg, PRN Naus ea & Vomiting, Start date: 11/20/17 1:52:00 LOOM SETTER, Duration: 30 day, Stop date: 12/20/17 1:51:00 LOOM SETTER Notes: (Same as: Zofran) MEDICATION WASTE Product Size: 4 mgProduct Was yahir: ___ mg Start Date: 11/20/17 Stop Date: 11/22/17 Status: Discontinued PARoxetine 20 mg, 2 tab, Route: PO, Drug form: TAB, Daily, Dosing Weight 131.227, kg, Start date: 11/21/17 22:48:00 LOOM SETTER, Duration: 30 day, Stop date: 12/21/17 9:00:00 LOOM SETTER Notes: (Same as: Paxil) Start Date: 11/21/17 Stop Date: 11/22/17 Status: Discontinued Pepcid 20 mg oral tablet 20 mg, 1 tab, Route: PO, Drug form: TAB, BID, Dosing Weight 131.227, kg, Start d ate: 11/21/17 17:00:00 LOOM SETTER, Duration: 30 day, Stop date: 12/21/17 9:00:00 LOOM SETTER Notes: (Same as: Pepcid) Start Date: 11/21/17 Stop Date: 11/22/17 Status: Discontinued pravastatin 20 mg, 1 tab, Route: PO, Drug form: TAB, Bedtime, Dosing Weight 131.227, kg, Sta rt date: 11/21/17 21:00:00 LOOM SETTER, Duration: 30 day, Stop date: 12/20/17 21:00:[address] Notes: (Same as: Pravachol) Start Date: 11/21/17 Stop Date: 11/22/17 Status: Discontinued Rocephin + sterile water 10 mL 1 gm, Route: IV, [id number], Dosing Weight 105.455, kg, Start date: 11/20/17 2:00:0 0 LOOM SETTER, Duration: 4 day, Stop date: 11/23/17 2:00:00 LOOM SETTER, ABX Indication: Urinary Tract Infection Notes: (Same As: Rocephin).Use with 100 mL NS and infuse over 30 min MEDICA TION WASTE Product Size: 1000 mgProduct Wasted: ___ mg Start Date: 11/20/17 Stop Date: 11/22/17 Status: Discontinued Saline Flush 0.9% 10 ml, Route: IVP, Drug Form: INJ, Dosing Weight 105.455, kg, PRN, PRN Line Flus h, Start date: 11/20/17 1:52:00 LOOM SETTER, Duration: 30 day, Stop date: 12/20/17 1:51: 00 LOOM SETTER Notes: (Same as: BD Posiflush) Start Date: 11/20/17 Stop Date: 11/22/17 Status: Discontinued Sodium Chloride 0.9% IV 1,000 mL 1,000 mL, Rate: 75 ml/hr, Infuse over: 13.3 hr, Route: IV, Dosing Weight 105.455 kg, Total Volume: 1,000, Start date: 11/20/17 1:52:00 LOOM SETTER, Duration: 30 day, St op date: 12/20/17 1:51:00 LOOM SETTER, 2.25, m2 Start Date: 11/20/17 Stop Date: 11/22/17 Status: Discontinued tramadol 50 mg oral tablet 50 mg, 1 tab, Route: PO, Drug form: TAB, Q12H, Dosing Weight 131.227, kg, PRN Pa in Score 6-10, Start date: 11/21/17 11:50:00 LOOM SETTER, Duration: 30 day, Stop date: 0 12/21/17 11:49:00 LOOM SETTER Notes: Not to exceed 400mg/day. (Same As: Ultram) Start Date: 11/21/17 Stop Date: 11/22/17 Status: Discontinued Results ELECTROLYTES Most recent to 1 2 oldest [Reference Range]: Sodium Lvl [135-145 141 mEq/L 137 mEq/L mEq/L] (11/20/17 11:15 AM) (11/19/17 10:02 PM) Potassium Lvl 3.9 mEq/L 4.1 mEq/L [3.5-5.1 mEq/L] (11/20/17 11:15 AM) (11/19/17 10:02 PM) Chloride Lvl [95-109 102 mEq/L 100 mEq/L mEq/L] (11/20/17 11:15 AM) (11/19/17 10:02 PM) CO2 [24-32 mEq/L] 31 mEq/L 30 mEq/L (11/20/17 11:15 AM) (11/19/17 10:02 PM) AGAP [10.0-20.0 11.9 mEq/L 11.1 mEq/L mEq/L] (11/20/17 11:15 AM) (11/19/17 10:02 PM) CHEM PANEL Most recent to 1 2 oldest [Reference Range]: Creatinine Lvl 1.44 mg/dL 1.50 mg/dL [0.50-1.40 mg/dL] *HI* *HI* (11/20/17 11:15 AM) (11/19/17 10:02 PM) eGFR 38 mL/min/1.73m2 1 37 mL/min/1.73m2 2 *NA* *NA* (11/20/17 11:15 AM) (11/19/17 10:02 PM) BUN [7-22 mg/dL] 52 mg/dL 51 mg/dL *HI* *HI* (11/20/17 11:15 AM) (11/19/17 10:02 PM) B/C Ratio [6-25] 36 34 *HI* *HI* (11/20/17 11:15 AM) (11/19/17 10:02 PM) Glucose Lvl [70-99 260 mg/dL 325 mg/dL mg/dL] *HI* *HI* (11/20/17 11:15 AM) (11/19/17 10:02 PM) Total Protein 6.9 g/dL 7.8 g/dL [6.4-8.4 g/dL] (11/20/17 11:15 AM) (11/19/17 10:02 PM) Albumin Lvl [3.5-5.0 2.3 g/dL 2.7 g/dL g/dL] *LOW* *LOW* (11/20/17 11:15 AM) (11/19/17 10:02 PM) Globulin [2.7-4.2 4.6 g/dL 5.1 g/dL g/dL] *HI* *HI* (11/20/17 11:15 AM) (11/19/17 10:02 PM) A/G Ratio [0.7-1.6] 0.5 0.5 *LOW* *LOW* (11/20/17 11:15 AM) (11/19/17 10:02 PM) Calcium Lvl 7.9 mg/dL 8.1 mg/dL [8.5-10.5 mg/dL] *LOW* *LOW* (11/20/17 11:15 AM) (11/19/17 10:02 PM) Phosphorus [2.5-4.5 4.4 mg/dL mg/dL] (11/19/17 10:02 PM) Magnesium Lvl 2.1 mg/dL 2.1 mg/dL [1.8-2.4 mg/dL] (11/20/17 11:15 AM) (11/19/17 10:02 PM) ALT [0-65 unit/L] 12 unit/L 17 unit/L (11/20/17 11:15 AM) (11/19/17 10:02 PM) AST [0-37 unit/L] 14 unit/L 15 unit/L (11/20/17 11:15 AM) (11/19/17 10:02 PM) Alk Phos [39-136 126 unit/L 168 unit/L unit/L] (11/20/17 11:15 AM) *HI* (11/19/17 10:02 PM) Bili Total [0.2-1.3 0.4 mg/dL 0.2 mg/dL mg/dL] (11/20/17 11:15 AM) (11/19/17 10:02 PM) Ketone Quantitative 0.44 mmol/L [<=0.27 mmol/L] *HI* (11/19/17 10:02 PM) 1Result Comment: The eGFR is calculated [...] BMI. CARDIAC ENZYMES Most recent to 1 2 oldest [Reference Range]: Total CK [12-191 85 unit/L unit/L] (11/19/17 10:02 PM) CK MB [0.5-3.6 2.0 ng/mL ng/mL] (11/19/17 10:02 PM) CK MB Index 2.4 [0.0-2.5] (11/19/17 10:02 PM) Troponin-I <0.02 ng/mL [0.00-0.40 ng/mL] (11/19/17 10:02 PM) BNP [<=100 pg/mL] 26 pg/mL (11/19/17 10:02 PM) URINE AND STOOL Most recent to 1 2 oldest [Reference Range]: UA Turbidity [Clear] Slight *ABN* (11/19/17 10:47 PM) UA Color Ltyellow *NA* (11/19/17 10:47 PM) UA pH [5.0-8.0] 5.0 (11/19/17 10:47 PM) UA Spec Grav 1.009 [<=1.030] (11/19/17 10:47 PM) UA Glucose [Negative 150 mg/dL mg/dL] *ABN* (11/19/17 10:47 PM) UA Blood [Negative] Small *ABN* (11/19/17 10:47 PM) UA Ketones [Negative Negative mg/dL mg/dL] *NA* (11/19/17 10:47 PM) UA Protein [Negative 100 mg/dL mg/dL] *ABN* (11/19/17 10:47 PM) UA Urobilinogen <=1.0 mg/dL [0.1-1.0 mg/dL] *NA* (11/19/17 10:47 PM) UA Bili [Negative] Negative *NA* (11/19/17 10:47 PM) UA Leuk Est Moderate [Negative] *ABN* (11/19/17 10:47 PM) UA Nitrite Negative [Negative] (11/19/17 10:47 PM) UA WBC [0-5 /HPF] 29 /HPF *HI* (11/19/17 10:47 PM) UA Bacteria [None Moderate /HPF Seen /HPF] *ABN* (11/19/17 10:47 PM) UA Sq Epi [Few /LPF] Occasional /LPF *NA* (11/19/17 10:47 PM) UA Hyal Cast [0-2 6 /LPF /LPF] *HI* (11/19/17 10:47 PM) UA [place] Yeast [None Few /HPF Seen /HPF] *ABN* (11/19/17 10:47 PM) HEMATOLOGY Most recent to 1 2 oldest [Reference Range]: WBC [3.7-10.4 K/CMM] 5.0 K/CMM 5.7 K/CMM (11/20/17 11:15 AM) (11/19/17 10:02 PM) RBC [4.20-5.40 3.24 M/CMM 3.49 M/CMM M/CMM] *LOW* *LOW* (11/20/17 11:15 AM) (11/19/17 10:02 PM) Hgb [12.0-16.0 g/dL] 9.1 g/dL 10.1 g/dL *LOW* *LOW* (11/20/17 11:15 AM) (11/19/17 10:02 PM) Hct [36.0-48.0 %] 28.1 % 30.6 % *LOW* *LOW* (11/20/17 11:15 AM) (11/19/17 10:02 PM) MCV [80.0-98.0 fL] 86.9 fL 87.7 fL (11/20/17 11:15 AM) (11/19/17 10:02 PM) MCH [27.0-31.0 pg] 28.1 pg 29.0 pg (11/20/17 11:15 AM) (11/19/17 10:02 PM) MCHC [32.0-36.0 32.3 g/dL 33.0 g/dL g/dL] (11/20/17 11:15 AM) (11/19/17 10:02 PM) RDW [11.5-14.5 %] 14.4 % 14.4 % (11/20/17 11:15 AM) (11/19/17 10:02 PM) Platelet [133-450 172 K/CMM 209 K/CMM K/CMM] (11/20/17 11:15 AM) (11/19/17 10:02 PM) MPV [7.4-10.4 fL] 9.0 fL 8.7 fL (11/20/17 11:15 AM) (11/19/17 10:02 PM) Segs [45.0-75.0 %] 65.7 % 66.2 % (11/20/17 11:15 AM) (11/19/17 10:02 PM) Lymphocytes 17.8 % 16.8 % [20.0-40.0 %] *LOW* *LOW* (11/20/17 11:15 AM) (11/19/17 10:02 PM) Monocytes [2.0-12.0 12.1 % 12.3 % %] *HI* *HI* (11/20/17 11:15 AM) (11/19/17 10:02 PM) Eosinophils [0.0-4.0 3.5 % 3.7 % %] (11/20/17 11:15 AM) (11/19/17 10:02 PM) Basophils [0.0-1.0 0.9 % 1.0 % %] (11/20/17 11:15 AM) (11/19/17 10:02 PM) Segs-Bands # 3.3 K/CMM 3.8 K/CMM [1.5-8.1 K/CMM] (11/20/17 11:15 AM) (11/19/17 10:02 PM) Lymphocytes # 0.9 K/CMM 1.0 K/CMM [1.0-5.5 K/CMM] *LOW* (11/19/17 10:02 PM) (11/20/17 11:15 AM) Monocytes # [0.0-0.8 0.6 K/CMM 0.7 K/CMM K/CMM] (11/20/17 11:15 AM) (11/19/17 10:02 PM) Eosinophils # 0.2 K/CMM 0.2 K/CMM [0.0-0.5 K/CMM] (11/20/17 11:15 AM) (11/19/17 10:02 PM) Basophils # [0.0-0.2 0.1 K/CMM K/CMM] (11/19/17 10:02 PM) PT [12.0-14.7 12.6 seconds seconds] (11/19/17 10:02 PM) INR [0.85-1.17] 0.94 (11/19/17 10:02 PM) PTT [22.9-35.8 28.5 seconds seconds] (11/19/17 10:02 PM) Immunizations Not Given Vaccine Date Status [...] Clinical Document Author: Faisal Joseph MD Date: 11/22/17 Hospitalist Discharge Summary Patient was admitted on 11/20/2017 Date of Discharge: November 22, 2017 Diagnoses: Altered mental status, unspecified (R41.82) Urinary tract infection, site not specified (N39.0) 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 Frank is a patient with history of diabetes mellitus hypertension and recurrent UTIs. Patient was admitted due to altered mental status secondary to UTI. She was admitted started on Rocephin. Cultures were drawn. Over the course of stay mental status returned to baseline. Blood glucose remained controlled. Home medications were continued. Cultures grew E. coli which was pansensitive. Patient was discharged home on oral course of Keflex. She is advised to follow-up with her primary care physician. Time spent on discharge process: > 30 min Subjective & Interval history: Patient seen and examined. Objective: Vital Signs (last 24 hrs) Last Charted Temp Oral 97.4 DegF (NOV 22:43) Heart Rate Peripheral 73 bpm (NOV 22:43) Resp Rate 18 BRMIN (NOV 22:43) SBP H 179 mmHg (NOV 22:43) DBP 83 mmHg (NOV 22:) SpO2 99 % (NOV 22:) Medications and labs reviewed as below. PHYSICAL EXAM: GENERAL: AAO NAD HEENT: NCAT, perrl, eomi NECK: Supple, midline trachea LUNGS: CTAB, No rales, rhonchi or wheezes. non labored breathing. CARDIOVASCULAR: S1, S2 normal. No M/G/R. ABDOMEN: Soft, ND, NT. BS + EXTREMITIES: No C/C , or Edema SKIN: No rashes. MUSCULOSKELETAL: Moving all extremities. Neuro: No new motor or sensory deficits Input/Output RecordInOutBal 11/623hr Tot 0 0 0 11/2124hr Tot 730 0 730 Scheduled Meds (10):PARoxetine, aspirin (aspirin 81 mg tablet, enteric coated), carvedilol, cefTRIAXone + sterile water 10 mL (Rocephin + sterile water 10 mL), docusate, famotidine (Pepcid 20 mg oral tablet), furosemide (Lasix 40 mg oral tablet), insulin glargine, lisinopril, pravastatin Unscheduled Meds: None PRN Meds (14):Dextrose 50% in Water IV (Dextrose 50% Syringe), Dextrose 50% in Water IV (Dextrose 50% Syringe), acetaminophen, glucagon, hyoscyamine, insulin lispro, insulin lispro, insulin lispro, insulin lispro, insulin lispro, lactulose (lactulose 10 g/15 mL oral syrup), ondansetron, sodium chloride (Saline Flush 0.9%), tramadol (tramadol 50 mg oral tablet) One Time Meds (1):(Completed) hydrALAZINE Continuous Infusions (1):Sodium Chloride 0.9% IV 1,000 mL Labs Most Recent Results Previous Results Previous Results Previous Results WBC 5.0 (NOV 20) 5.7 (NOV 19) -- -- Hgb L 9.1 (NOV 20) L 10.1 (NOV 19) -- -- Hct L 28.1 (NOV 20) L 30.6 (NOV 19) -- -- Plt 172 (NOV 20) 209 (NOV 19) -- -- Na 141 (NOV 20) 137 (NOV 19) -- -- K 3.9 (NOV 20) 4.1 (NOV 19) -- -- CO2 31 (NOV 20) 30 (NOV 19) -- -- Cl 102 (NOV 20) 100 (NOV 19) -- -- Cr H 1.44 (NOV 20) H 1.50 (NOV 19) -- -- BUN H 52 (NOV 20) H 51 (NOV 19) -- -- Glucose Random H 260 (NOV 20) H 325 (NOV 19) -- -- Mg 2.1 (NOV 20) 2.1 (NOV 19) -- -- Phos 4.4 (NOV 19) -- -- -- Ca L 7.9 (NOV 20) L 8.1 (NOV 19) -- -- PT 12.6 (NOV 19) -- -- -- INR 0.94 (NOV 19) -- -- -- PTT 28.5 (NOV 19) -- -- -- Troponin <0.02 (NOV 19) -- -- -- CK MB 2.0 (NOV 19) -- -- -- Total CK 85 (NOV 19) [facility], -- [facility], -- [facility], -- Extracted from: Title: Clinical Document Author: Faisal Joseph MD Date: 11/21/17 Medicine Progress Daily Chief Complaint: UTI Subjective & Interval history: Patient seen and examined. c/o weakness Objective: Vital Signs (last 24 hrs) Last Charted Temp Oral 98 DegF (NOV 21:) Heart Rate Peripheral 87 bpm (NOV 21:) Resp Rate 16 BRMIN (NOV 21:) SBP H 156 mmHg (NOV 21:) DBP 77 mmHg (NOV 21:) SpO2 98 % (NOV 21:) Medications and labs reviewed as below. PHYSICAL EXAM: GENERAL: AAO NAD HEENT: NCAT, perrl, eomi NECK: Supple, midline trachea LUNGS: CTAB, No rales, rhonchi or wheezes. non labored breathing. CARDIOVASCULAR: S1, S2 normal. No M/G/R. ABDOMEN: Soft, ND, NT. BS + EXTREMITIES: No C/C , or Edema SKIN: No rashes. MUSCULOSKELETAL: Moving all extremities. Neuro: No new motor or sensory deficits IMPRESSION: 1. Acute urinary tract infection. 2. Altered mental status probably secondary to the above. 3. Dehydration. 4. Acute renal failure. 5. Hyperglycemia. 6. Uncontrolled diabetes mellitus. PLAN & TREATMENT Continue abx follow [facility] home meds ISS PT/OT For details see orders. Plan of care discussed with the patient Disposition: Input/Output RecordInOutBal 11/523hr Tot 0 0 0 11/423hr Tot [phone] Scheduled Meds (10):PARoxetine, aspirin (aspirin 81 mg tablet, enteric coated), carvedilol, cefTRIAXone + sterile water 10 mL (Rocephin + sterile water 10 mL), docusate, famotidine (Pepcid 20 mg oral tablet), furosemide (Lasix 40 mg oral tablet), insulin glargine, lisinopril, pravastatin Unscheduled Meds: None PRN Meds (14):Dextrose 50% in Water IV (Dextrose 50% Syringe), Dextrose 50% in Water IV (Dextrose 50% Syringe), acetaminophen, glucagon, hyoscyamine, insulin lispro, insulin lispro, insulin lispro, insulin lispro, insulin lispro, lactulose (lactulose 10 g/15 mL oral syrup), ondansetron, sodium chloride (Saline Flush 0.9%), tramadol (tramadol 50 mg oral tablet) One Time Meds (2):(Completed) Insulin regular, (Completed) hydrALAZINE Continuous Infusions (1):Sodium Chloride 0.9% IV 1,000 mL Labs Most Recent Results Previous Results Previous Results Previous Results WBC 5.0 (NOV 20) 5.7 (NOV 19) -- -- Hgb L 9.1 (NOV 20) L 10.1 (NOV 19) -- -- Hct L 28.1 (NOV 20) L 30.6 (NOV 19) -- -- Plt 172 (NOV 20) 209 (NOV 19) -- -- Na 141 (NOV 20) 137 (NOV 19) -- -- K 3.9 (NOV 20) 4.1 (NOV 19) -- -- CO2 31 (NOV 20) 30 (NOV 19) -- -- Cl 102 (NOV 20) 100 (NOV 19) -- -- Cr H 1.44 (NOV 20) H 1.50 (NOV 19) -- -- BUN H 52 (NOV 20) H 51 (NOV 19) -- -- Glucose Random H 260 (NOV 20) H 325 (NOV 19) -- -- Mg 2.1 (NOV 20) 2.1 (NOV 19) -- -- Phos 4.4 (NOV 19) -- -- -- Ca L 7.9 (NOV 20) L 8.1 (NOV 19) -- -- PT 12.6 (NOV 19) -- -- -- INR 0.94 (NOV 19) -- -- -- PTT 28.5 (NOV 19) -- -- -- Troponin <0.02 (NOV 19) -- -- -- CK MB 2.0 (NOV 19) -- -- -- Total CK 85 (NOV 19) [facility], -- [facility], -- [facility], --
--- OUTSIDE RECORDS SUMMARY | 2019-03-23 18:36 | XMS REPORT | Summary of Care ---
Author Organization Unknown Address Unknown Phone Unavailable Encounter Dates Location Diagnoses Discharge Providers Disposition 02/03/2014 [facility] [place] [facility] Shilpa Sultana - [place] [facility] Diagnosis: 02/04/2014 [id number] [address] [facility] [place], [place] [id number] [place] [address] Discharge Diagnosis: Sprain and strain of shoulder and upper arm Discharge Diagnosis: Cervical radiculopathy Reason for Visit CHEST PAIN, ARM PAIN Vital Signs 1 2 3 Most recent to oldest [Reference Range]: 165.1 cm (02/03/2014 20:58:00 [facility]) Height 98.1 DegF (02/04/2014 03:03:00 [facility]) 97.6 DegF (02/04/2014 00:05:00 [facility]) 97.8 DegF (02/03/2014 20:58:00 [facility]) Temperature Oral [96.4-99.1 DegF] 121 mmHg (02/04/2014 03:03:00 [facility]) 130 mmHg (02/04/2014 00:05:00 [facility]) 146 mmHg *HI* (02/03/2014 20:58:00 [facility]) Systolic Blood Pressure [90-140 mmHg] 66 mmHg (02/04/2014 03:03:00 [facility]) 72 mmHg (02/04/2014 00:05:00 [facility]) 85 mmHg (02/03/2014 20:58:00 [facility]) Diastolic Blood Pressure [60-90 mmHg] 18 BRMIN (02/04/2014 03:03:00 [facility]) 18 BRMIN (02/04/2014 00:05:00 [facility]) 20 BRMIN (02/03/2014 20:58:00 [facility]) Respiratory Rate [14-20 BRMIN] 72 bpm (02/04/2014 03:03:00 [facility]) 79 bpm (02/04/2014 00:05:00 [facility]) 91 bpm (02/03/2014 20:58:00 [facility]) Peripheral Pulse Rate [60-100 bpm] 104.545 kg (02/03/2014 20:58:00 [facility]) Weight 38.35 m2 (02/03/2014 20:58:00 [facility]) Body Mass Index Problem List Condition Effective Dates Status Health Status Informant Catheterization(Conf Resolved irmed)1 Degenerative disc Resolved disease(Confirmed) DM - Diabetes Active mellitus(Confirmed) HTN - Active Hypertension(Confirm ed) Hyperglycemia(Confir Active med) Syncope(Confirmed) 05/11/2009 Resolved Thyroid Resolved disorder(Confirmed) UTI - Urinary tract Active infection(Confirmed) 1heart Allergies, Adverse Reactions, Alerts Status Substance Reaction Severity Active influenza virus vaccine, Influenza virus vaccine inactivated Active metformin Medications Medication Instructions Start Date Stop Date Status acetaminophen-hydroc 1 tab, Route: PO, Drug Form: TAB, 02/04/2014 02/04/2014 Completed odone 325 mg-5 mg Dosing Weight 104.545, kg, ONCE, oral tablet STAT, Start date: 02/04/14 1:17:00, Stop date: 02/04/14 1:17:00 (Same as: [place] 325/5) Do not exceed 4gm/day of acetaminophen. Flexeril 10 mg, Route: PO, ONCE, Dosing 02/03/2014 02/03/2014 Completed Weight 104.545, kg, Priority: STAT, Start date: 02/03/14 22:21:00, Stop date: 02/03/14 22:21:00 Flexeril 5 mg oral 5 mg=1 tab, PO, TID, # 30 tab, 0 02/04/2014 02/14/2014 Ordered tablet Refill(s) Insulin regular 5 unit, 0.05 mL, Route: SUB-Q, Drug 02/04/2014 02/04/2014 Completed form: INJ, ONCE, Dosing Weight 104.545, kg, Priority: STAT, Start date: 02/04/14 1:17:00, Stop date: 02/04/14 1:17:00 (Same as: Humulin R and NovoLIN R) (Do not shake) ketorolac 30 mg, Route: IM, Drug form: INJ, 02/03/2014 02/03/2014 Completed ONCE, Dosing Weight 104.545, kg, Priority: STAT, Start date: 02/03/14 22:21:00, Stop date: 02/03/14 22:21:00 [place] 10/325 oral 1 tab, PO, Q6H, for pain, # 24 tab, 02/04/2014 Ordered tablet 0 Refill(s) Results ELECTROLYTES Most recent to 1 oldest [Reference Range]: Sodium Lvl [135-145 136 mEq/L mEq/L] (02/03/2014 23:05:00 [facility]) Potassium Lvl 3.5 mEq/L [3.5-5.1 mEq/L] (02/03/2014 23:05:00 [facility]) Chloride Lvl [95-109 100 mEq/L mEq/L] (02/03/2014 23:05:00 [facility]) CO2 [24-32 mEq/L] 30 mEq/L (02/03/2014 23:05:00 [facility]) AGAP [10.0-20.0 9.5 mEq/L mEq/L] *LOW* (02/03/2014 23:05:00 [facility]) CHEM PANEL Most recent to 1 oldest [Reference Range]: Creatinine Lvl 0.7 mg/dL [0.5-1.4 mg/dL] (02/03/2014 23:05:00 [facility]) eGFR 94 mL/min/1.73m2 1 *NA* (02/03/2014 23:05:00 [facility]) BUN [7-22 mg/dL] 22 mg/dL (02/03/2014 23:05:00 [facility]) B/C Ratio [6-25] 31 *HI* (02/03/2014 23:05:00 [facility]) Glucose Lvl [70-99 324 mg/dL 2 mg/dL] *HI* (02/03/2014 23:05:00 [facility]) Total Protein 8.1 g/dL [6.4-8.4 g/dL] (02/03/2014 23:05:00 [facility]) Albumin Lvl [3.5-5.0 3.4 g/dL g/dL] *LOW* (02/03/2014 23:05:00 [facility]) Globulin [2.0-4.0 4.7 g/dL g/dL] *HI* (02/03/2014 23:05:00 [facility]) A/G Ratio [0.7-1.6] 0.7 (02/03/2014 23:05:00 [facility]) Calcium Lvl 8.6 mg/dL [8.5-10.5 mg/dL] (02/03/2014 23:05:00 [facility]) ALT [0-65 unit/L] 23 unit/L (02/03/2014 23:05:00 [facility]) AST [0-37 unit/L] 20 unit/L (02/03/2014 23:05:00 [facility]) Alk Phos [39-136 107 unit/L unit/L] (02/03/2014 23:05:00 [facility]) Bili Total [0.2-1.3 0.4 mg/dL mg/dL] (02/03/2014 23:05:00 [facility]) 1Result Comment: The eGFR is calculated using [...] be mul tiplied by the estimated BMI. 2Interpretive Data: Adult reference range values reflect the clinical guidelines of the [place] [employer]. CARDIAC ENZYMES Most recent to 1 oldest [Reference Range]: Total CK [12-191 82 unit/L unit/L] (02/03/2014 23:05:00 [facility]) CK MB [0.5-3.6 1.2 ng/mL ng/mL] (02/03/2014 23:05:00 [facility]) CK MB Index 1.5 [0.0-2.5] (02/03/2014 23:05:00 [facility]) Troponin-I <0.02 ng/mL [0.00-0.40 ng/mL] (02/03/2014 23:05:00 [facility]) BNP [<=100 pg/mL] 11 pg/mL 3 (02/03/2014 23:05:00 [facility]) 3Interpretive Data: Elevated results are in line with increasing severity of congestive heart failure. Minor elevations between 100 and 300 may be seen with Myocardial Ischemia, Sodium retaining drugs, and compensated/treated heart failure. SPECIAL CHEMISTRY Most recent to 1 oldest [Reference Range]: Hgb A1C [<=5.6 %] 11.7 % *HI* (02/03/2014 23:05:00 [facility]) HEMATOLOGY Most recent to 1 oldest [Reference Range]: WBC [3.7-10.4 K/CMM] 5.8 K/CMM (02/03/2014 23:05:00 [facility]) RBC [4.20-5.40 4.28 M/CMM M/CMM] (02/03/2014 23:05:00 [facility]) Hgb [12.0-16.0 g/dL] 12.9 g/dL (02/03/2014 23:05:00 [facility]) Hct [36.0-48.0 %] 38.8 % (02/03/2014 23:05:00 [facility]) MCV [81.0-99.0 fL] 90.5 fL (02/03/2014 23:05:00 [facility]) MCH [27.0-31.0 pg] 30.2 pg (02/03/2014 23:05:00 [facility]) MCHC [32.0-36.0 33.4 g/dL g/dL] (02/03/2014 23:05:00 [facility]) RDW [11.5-14.5 %] 13.3 % (02/03/2014 23:05:00 [facility]) Platelet [133-450 224 K/CMM K/CMM] (02/03/2014 23:05:00 [facility]) MPV [7.4-10.4 fL] 10.1 fL (02/03/2014 23:05:00 [facility]) Segs [45.0-75.0 %] 52.1 % (02/03/2014 23:05:00 [facility]) Lymphocytes 36.8 % [20.0-40.0 %] (02/03/2014 23:05:00 [facility]) Monocytes [2.0-12.0 8.7 % %] (02/03/2014 23:05:00 [facility]) Eosinophils [0.0-4.0 2.0 % %] (02/03/2014 23:05:00 [facility]) Basophils [0.0-1.0 0.4 % %] (02/03/2014 23:05:00 [facility]) Segs-Bands # 3.0 K/CMM [1.5-8.1 K/CMM] (02/03/2014 23:05:00 [facility]) Lymphocytes # 2.1 K/CMM [1.0-5.5 K/CMM] (02/03/2014 23:05:00 [facility]) Monocytes # [0.0-0.8 0.5 K/CMM K/CMM] (02/03/2014 23:05:00 [facility]) Eosinophils # 0.1 K/CMM [0.0-0.5 K/CMM] (02/03/2014 23:05:00 [facility]) Basophils # [0.0-0.2 0.0 K/CMM K/CMM] (02/03/2014 23:05:00 [facility]) PT [12.0-14.7 13.0 seconds seconds] (02/03/2014 23:05:00 [facility]) INR [0.85-1.17] 0.99 4 (02/03/2014 23:05:00 [facility]) PTT [22.9-35.8 29.7 seconds 5 seconds] (02/03/2014 23:05:00 [facility]) 4Interpretive Data: RECOMMENDED RANGES FOR PROTIME INR: 2.0-3.0 for most medical and surgical thromboembolic states. 2.5-3.5 for artificial heart valves and recurrent embolism. INR SHOULD BE USED ONLY FOR PATIENTS ON STABLE ANTICOAGULANT THERAPY. 5Interpretive Data: Heparin Therapeutic Range: 57 - 92 Seconds Medications Administered During Your Visit No data available for this section Immunizations No data available for this section
--- OUTSIDE RECORDS SUMMARY | 2019-03-23 18:36 | XMS REPORT | Summary of Care ---
Author Author [facility] Organization [facility] Address Unknown Phone Unavailable Encounter KENROY Aguayo(JOVANNY) [id number] Date(s): 08/13/17 - 08/14/17 [facility] [address] [employer] provided by [facility] [employer] [facility] [place] [address]- Discharge Diagnosis: Right leg swelling Discharge Disposition: Home or Self Care Attending Physician: Shirley Infante MD Vital Signs 1 2 3 Most recent to oldest [Reference Range]: 167.64 cm (08/13/17 9:33 PM) Height 98.2 DegF (08/14/17 7:10 AM) 98.7 DegF (08/13/17 9:33 PM) Temperature Oral [96.4-99.1 DegF] 168/72 mmHg *HI* (08/14/17 7:10 AM) 158/69 mmHg *HI* (08/14/17 4:26 AM) 150/98 mmHg *HI* (08/14/17 3:30 AM) Blood Pressure [90-140/60-90 mmHg] 18 BRMIN (08/14/17 7:10 AM) 18 BRMIN (08/14/17 4:26 AM) 18 BRMIN (08/14/17 3:30 AM) Respiratory Rate [14-20 BRMIN] 84 bpm (08/13/17 9:33 PM) Peripheral Pulse Rate [60-100 bpm] Problem [...] 7 10/20/14 Active 1heart 2Data migrated from [employer] on 07/11/15. - in urine 4Problem added by Discern Expert. 5Data migrated from [employer] on 07/11/15. 6Urine, 10/20/2014 7Problem added by Discern Expert. Allergies, Adverse Reactions, Alerts Substance Reaction Severity Status influenza virus vaccine, Influenza virus vaccine Active inactivated Januvia Active metformin Active Medications Lasix 40 mg, Route: IVP, Drug form: INJ, ONCE, Dosing Weight 117.727, kg, Priority: ST AT, Start date: 08/14/17 6:00:00 CDT, Stop date: 08/14/17 6:00:00 CDT Start Date: 08/14/17 Stop Date: 08/14/17 Status: Completed Results ELECTROLYTES Most recent to 1 oldest [Reference Range]: Sodium Lvl [135-145 137 mEq/L mEq/L] (08/14/17 1:16 AM) Potassium Lvl 4.1 mEq/L [3.5-5.1 mEq/L] (08/14/17 1:16 AM) Chloride Lvl [95-109 104 mEq/L mEq/L] (08/14/17 1:16 AM) CO2 [24-32 mEq/L] 29 mEq/L (08/14/17 1:16 AM) AGAP [10.0-20.0 8.1 mEq/L mEq/L] *LOW* (08/14/17 1:16 AM) CHEM PANEL Most recent to 1 oldest [Reference Range]: Creatinine Lvl 1.21 mg/dL [0.50-1.40 mg/dL] (08/14/17 1:16 AM) eGFR 47 mL/min/1.73m2 1 *NA* (08/14/17 1:16 AM) BUN [7-22 mg/dL] 33 mg/dL *HI* (08/14/17 1:16 AM) Glucose Lvl [70-99 276 mg/dL mg/dL] *HI* (08/14/17 1:16 AM) Calcium Lvl 8.5 mg/dL [8.5-10.5 mg/dL] (08/14/17 1:16 AM) 1Result Comment: The eGFR is calculated using [...] Most recent to 1 oldest [Reference Range]: Troponin-I <0.02 ng/mL [0.00-0.40 ng/mL] (08/14/17 1:16 AM) URINE AND STOOL Most recent to 1 oldest [Reference Range]: UA Turbidity [Clear] Cloudy *ABN* (08/14/17 1:30 AM) UA Color [Yellow] Yellow *NA* (08/14/17 1:30 AM) UA pH [5.0-8.0] 6.0 (08/14/17 1:30 AM) UA Spec Grav 1.025 [<=1.030] (08/14/17 1:30 AM) UA Glucose [Negative 250 mg/dL mg/dL] *ABN* (08/14/17 1:30 AM) UA Blood [Negative] Moderate *ABN* (08/14/17 1:30 AM) UA Ketones Negative [Negative] *NA* (08/14/17 1:30 AM) UA Protein [Negative >=300 mg/dL mg/dL] *ABN* (08/14/17 1:30 AM) UA Urobilinogen 0.2 EU/dL [0.1-1.0 EU/dL] (08/14/17 1:30 AM) UA Bili [Negative] Negative *NA* (08/14/17 1:30 AM) UA Leuk Est Negative [Negative] (08/14/17 1:30 AM) UA Nitrite Positive [Negative] *ABN* (08/14/17 1:30 AM) UA WBC [None Seen 0-2 /HPF /HPF] (08/14/17 1:30 AM) UA RBC [0-2 /HPF] 3-5 /HPF *ABN* (08/14/17 1:30 AM) UA Bacteria [None Moderate /HPF Seen /HPF] (08/14/17 1:30 AM) UA Sq Epi [Few /LPF] Many /LPF *ABN* (08/14/17 1:30 AM) UA Hyal Cast [0-2] 0-2 (08/14/17 1:30 AM) UA Mucus [None Seen Few /LPF /LPF] (08/14/17 1:30 AM) HEMATOLOGY Most recent to 1 oldest [Reference Range]: WBC [3.7-10.4 K/CMM] 6.4 K/CMM (08/14/17 1:16 AM) RBC [4.20-5.40 3.34 M/CMM M/CMM] *LOW* (08/14/17 1:16 AM) Hgb [12.0-16.0 g/dL] 9.7 g/dL *LOW* (08/14/17 1:16 AM) Hct [36.0-48.0 %] 29.8 % *LOW* (08/14/17 1:16 AM) MCV [80.0-98.0 fL] 89.2 fL (08/14/17 1:16 AM) MCH [27.0-31.0 pg] 29.1 pg (08/14/17 1:16 AM) MCHC [32.0-36.0 32.6 g/dL g/dL] (08/14/17 1:16 AM) RDW [11.5-14.5 %] 13.7 % (08/14/17 1:16 AM) Platelet [133-450 259 K/CMM K/CMM] (08/14/17 1:16 AM) MPV [7.4-10.4 fL] 8.2 fL (08/14/17 1:16 AM) Segs [45.0-75.0 %] 64.4 % (08/14/17 1:16 AM) Lymphocytes 18.4 % [20.0-40.0 %] *LOW* (08/14/17 1:16 AM) Monocytes [2.0-12.0 12.2 % %] *HI* (08/14/17 1:16 AM) Eosinophils [0.0-4.0 4.2 % %] *HI* (08/14/17 1:16 AM) Basophils [0.0-1.0 0.8 % %] (08/14/17 1:16 AM) Segs-Bands # 4.1 K/CMM [1.5-8.1 K/CMM] (08/14/17 1:16 AM) Lymphocytes # 1.2 K/CMM [1.0-5.5 K/CMM] (08/14/17 1:16 AM) Monocytes # [0.0-0.8 0.8 K/CMM K/CMM] (08/14/17 1:16 AM) Eosinophils # 0.3 K/CMM [0.0-0.5 K/CMM] (08/14/17 1:16 AM) Basophils # [0.0-0.2 0.1 K/CMM K/CMM] (08/14/17 1:16 AM) Immunizations Not Given Vaccine Date Status Refusal [...]
--- OUTSIDE RECORDS SUMMARY | 2019-03-23 18:36 | XMS REPORT | CCD ---
Author Author Auto Generated Organization [facility] Address Unknown Phone Unavailable Care Team Providers Care Relays Draftsperson Name Role Phone Sujit Grimm CP Allergies, Adverse Reactions, Alerts Substance Reaction Status influenza virus vaccine, Influenza virus vaccine Active inactivated metformin Active Problem List Condition Effective Dates Status Hyperglycemia Active Syncope 05/11/2009 Active
--- OUTSIDE RECORDS SUMMARY | 2019-03-23 18:36 | XMS REPORT | CCD ---
Author Author Auto Generated Organization [facility] Address Unknown Phone Unavailable Care Team Providers Care Soap Mixer Name Role Phone Darryl Weber CP Allergies, Adverse Reactions, Alerts Substance Reaction Status influenza virus vaccine, Influenza virus vaccine Active inactivated metformin Active Problem List Condition Effective Dates Status Degenerative disc disease Resolved DM - Diabetes mellitus Active HTN - Hypertension Active Hyperglycemia Active Syncope 05/11/2009 Resolved Thyroid disorder Resolved UTI - Urinary tract infection Active Medications Medication Instructions Start Date End Date Status Ultram 50 mg oral 100 mg, 2 tab, Route: PO, Drug 05/20/2013 05/20/2013 Completed tablet form: TAB, ONCE, Dosing Weight 105.455, kg, Priority: STAT, Start date: 05/20/13 18:45:00, Stop date: 05/20/13 18:45:00 ibuprofen 800 mg 800 mg, 1 tab, PO, Q8H, PRN, Take 05/20/2013 Ordered oral tablet with food, 30 tab, Pain, Substitution Allowed Take with food Ultracet oral tablet 1 tab, PO, Q4H, PRN, 20 tab, for 05/20/2013 Ordered pain, Substitution Allowed, Maintenance, TAB Motrin 800 mg, 2 tab, Route: PO, Drug 05/20/2013 05/20/2013 Completed form: TAB, ONCE, Dosing Weight 105.455, kg, Priority: STAT, Start date: 05/20/13 18:15:00, Stop date: 05/20/13 18:15:00 Vital Signs Most recent to oldest [Reference Range]: 1 Height 167.64 cm (05/20/2013 17:56:00) Weight 105.455 kg (05/20/2013 17:56:00)
--- OUTSIDE RECORDS SUMMARY | 2019-03-23 18:36 | XMS REPORT | CCD ---
Author Author Auto Generated Organization [facility] Address Unknown Phone Unavailable Care Team Providers Care Sequins Winder Name Role Phone Sujit Grimm CP Allergies, Adverse Reactions, Alerts Substance Reaction Status influenza virus vaccine, Influenza virus vaccine Active inactivated metformin Active Problem List Condition Effective Dates Status Hyperglycemia Active Syncope 05/11/2009 Active
--- OUTSIDE RECORDS SUMMARY | 2019-03-23 18:37 | XMS REPORT | Summary of Care ---
Author Organization Unknown Address Unknown Phone Unavailable Encounter KENROY Aguayo(JOVANNY) [id number] Date(s): 04/01/14 - 04/01/14 [facility] [address] Discharge Diagnosis: Hyperglycemia Discharge Disposition: Home Physician Attending: Gm Arboleda MD Reason for Visit ARM PAIN/INJURY Vital Signs Most recent to 1 2 oldest [Reference Range]: Height 165.1 cm (04/01/14 10:14 AM) Temperature Oral 98.4 DegF [96.4-99.1 DegF] (04/01/14 10:14 AM) Systolic Blood 120 mmHg 133 mmHg Pressure [90-140 (04/01/14 12:54 PM) (04/01/14 10:14 AM) mmHg] Diastolic Blood 50 mmHg 85 mmHg Pressure [60-90 *LOW* (04/01/14 10:14 AM) mmHg] (04/01/14 12:54 PM) Respiratory Rate 20 BRMIN 18 BRMIN [14-20 BRMIN] (04/01/14 12:54 PM) (04/01/14 10:14 AM) Peripheral Pulse 68 bpm 67 bpm Rate [60-100 bpm] (04/01/14 12:54 PM) (04/01/14 10:14 AM) Weight 104.545 kg (04/01/14 10:14 AM) Body Mass Index 38.35 m2 (04/01/14 10:14 AM) Problem List Condition Effective Dates Status Health Status Informant Catheterization(Conf Resolved irmed)1 Degenerative disc Resolved disease(Confirmed) DM - Diabetes Active mellitus(Confirmed) HTN - Active Hypertension(Confirm ed) Hyperglycemia(Confir Active med) Syncope(Confirmed) 05/11/09 Resolved Thyroid Resolved disorder(Confirmed) UTI - Urinary tract Active infection(Confirmed) 1heart Allergies, Adverse Reactions, Alerts Substance Reaction Severity Status influenza virus vaccine, Influenza virus vaccine Active inactivated metformin Active Medications Insulin regular 10 unit, 0.1 mL, Route: IVP, Drug form: INJ, ONCE, Dosing Weight 104.545, kg, Pr iority: STAT, Start date: 04/01/14 10:51:00, Stop date: 04/01/14 10:51:00 Notes: (Same as: Humulin R and NovoLIN R) (Do not shake) Start Date: 04/01/14 Stop Date: 04/01/14 Status: Completed Sodium Chloride 0.9% (Bolus) IV - - 1,000 mL, 1,000 ml/hr, Infuse Over: 1 hr, Route: IV, 1,000, Drug form: INJ, ONCE , Priority: STAT, Dosing Weight 104.545 kg, Start date: 04/01/14 10:50:00, Durat ion: 1 doses or times, Stop date: 04/01/14 10:50:00 Start Date: 04/01/14 Stop Date: 04/01/14 Status: Ordered Results ELECTROLYTES Most recent to 1 oldest [Reference Range]: Sodium Lvl [135-145 136 mEq/L mEq/L] (04/01/14 11:31 AM) Potassium Lvl 3.6 mEq/L [3.5-5.1 mEq/L] (04/01/14 11:31 AM) Chloride Lvl [95-109 99 mEq/L mEq/L] (04/01/14 11:31 AM) CO2 [24-32 mEq/L] 29 mEq/L (04/01/14 11:31 AM) AGAP [10.0-20.0 11.6 mEq/L mEq/L] (04/01/14 11:31 AM) CHEM PANEL Most recent to 1 oldest [Reference Range]: Creatinine Lvl 0.6 mg/dL [0.5-1.4 mg/dL] (04/01/14 11:31 AM) eGFR 99 mL/min/1.73m2 1 *NA* (04/01/14 11:31 AM) BUN [7-22 mg/dL] 13 mg/dL (04/01/14 11:31 AM) B/C Ratio [6-25] 22 (04/01/14 11:31 AM) Glucose Lvl [70-99 265 mg/dL 2 mg/dL] *HI* (04/01/14 11:31 AM) Total Protein 8.0 g/dL [6.4-8.4 g/dL] (04/01/14 1131 AM) Albumin Lvl [3.5-5.0 3.1 g/dL g/dL] *LOW* (04/01/14 11:31 AM) Globulin [2.0-4.0 4.9 g/dL g/dL] *HI* (04/01/14 11:31 AM) A/G Ratio [0.7-1.6] 0.6 *LOW* (04/01/14 11:31 AM) Calcium Lvl 8.8 mg/dL [8.5-10.5 mg/dL] (04/01/14:31 AM) ALT [0-65 unit/L] 25 unit/L (04/01/14 11:31 AM) AST [0-37 unit/L] 17 unit/L (04/01/14 11:31 AM) Alk Phos [39-136 95 unit/L unit/L] (04/01/14 11:31 AM) Bili Total [0.2-1.3 0.5 mg/dL mg/dL] (04/01/14 11:31 AM) 1Result Comment: The eGFR is calculated [...] values reflect the clinical guidelines of the [place] [employer]. HEMATOLOGY Most recent to 1 oldest [Reference Range]: WBC [3.7-10.4 K/CMM] 5.2 K/CMM (5/16/14 11:31 AM) RBC [4.20-5.40 4.31 M/CMM M/CMM] (04/01/14 AM) Hgb [12.0-16.0 g/dL] 13.4 g/dL (04/01/1431 AM) Hct [36.0-48.0 %] 38.2 % (04/01/14 AM) MCV [81.0-99.0 fL] 88.6 fL (04/01/14 AM) MCH [27.0-31.0 pg] 31.0 pg (04/01/14 AM) MCHC [32.0-36.0 34.9 g/dL g/dL] (04/01/14 AM) RDW [11.5-14.5 %] 12.6 % (04/01/14 AM) Platelet [133-450 214 K/CMM K/CMM] (04/01/14 AM) MPV [7.4-10.4 fL] 10.5 fL *HI* (04/01/1431 AM) Segs [45.0-75.0 %] 50.3 % (04/01/14 AM) Lymphocytes 36.5 % [20.0-40.0 %] (04/01/1431 AM) Monocytes [2.0-12.0 9.9 % %] (04/01/14 AM) Eosinophils [0.0-4.0 2.7 % %] (04/01/1431 AM) Basophils [0.0-1.0 0.6 % %] (04/01/1431 AM) Segs-Bands # 2.6 K/CMM [1.5-8.1 K/CMM] (04/01/1431 AM) Lymphocytes # 1.9 K/CMM [1.0-5.5 K/CMM] (04/01/1431 AM) Monocytes # [0.0-0.8 0.5 K/CMM K/CMM] (04/01/14 11:31 AM) Eosinophils # 0.1 K/CMM [0.0-0.5 K/CMM] (04/01/14 11:31 AM) Basophils # [0.0-0.2 0.0 K/CMM K/CMM] (04/01/14 11:31 AM) Medications Administered During Your Visit No data available for this section Immunizations No data available for this section
--- OUTSIDE RECORDS SUMMARY | 2019-03-23 18:37 | XMS REPORT | Summary of Care ---
Author Organization Unknown Address Unknown Phone Unavailable Encounter [facility] Olivier(JOVANNY) [id number] Date(s): 10/28/14 - 10/30/14 [facility] [address] [address] Discharge Disposition: Against Medical Advise Physician Attending: Jagdish Peña MD Physician Admitting: Jagdish Peña MD Reason for Visit UTI/VRE Vital Signs 1 2 3 Most recent to oldest [Reference Range]: 165.1 cm (10/28/14 11:17 PM) 165.1 cm (10/28/14 11:16 PM) Height 98.1 DegF (10/30/14 8:00 AM) 98 DegF (10/30/14 4:00 AM) 98.7 DegF (10/30/14 12:00 AM) Temperature Oral [96.4-99.1 DegF] 131 mmHg (10/30/14 8:00 AM) 144 mmHg *HI* (10/30/14 4:00 AM) 137 mmHg (10/30/14 12:00 AM) Systolic Blood Pressure [90-140 mmHg] 80 mmHg (10/30/14 8:00 AM) 79 mmHg (10/30/14 4:00 AM) 81 mmHg (10/30/14 12:00 AM) Diastolic Blood Pressure [60-90 mmHg] 18 BRMIN (10/30/14 8:00 AM) 18 BRMIN (10/30/14 4:00 AM) 18 BRMIN (10/30/14 12:00 AM) Respiratory Rate [14-20 BRMIN] 92 bpm (10/30/14 8:00 AM) 89 bpm (10/30/14 4:00 AM) 92 bpm (10/30/14 12:00 AM) Peripheral Pulse Rate [60-100 bpm] 104.545 kg (10/28/14 11:17 PM) 104.545 kg (10/28/14 11:16 PM) Weight 38.35 m2 (10/28/14 11:17 PM) 38.35 m2 (10/28/14 11:16 PM) Body Mass Index Problem List Condition Effective Dates Status Health Status Informant Catheterization(Conf Resolved irmed)1 Degenerative disc Resolved disease(Confirmed) DM - Diabetes Active mellitus(Confirmed) Gastroesophageal Active reflux disease(Confirmed) GERD Active (gastroesophageal reflux disease)(Confirmed) GI bleed(Confirmed) Active HTN - Active Hypertension(Confirm ed) Hyperglycemia(Confir Active med) Overactive Resolved bladder(Confirmed) Syncope(Confirmed) 05/11/09 Resolved Thyroid Resolved disorder(Confirmed) UTI - Urinary tract Active infection(Confirmed) VRE(Confirmed) Active VRE(Confirmed)2 Active 1heart 2Problem added by Discern Expert. Allergies, Adverse Reactions, Alerts Substance Reaction Severity Status influenza virus vaccine, Influenza virus vaccine Active inactivated Januvia Active metformin Active Medications Dextrose 50% Syringe 25 gm, 50 mL, Route: IVP, Drug Form: INJ, Dosing Weight 104.545, kg, PRN, PRN Bl ood Glucose Results, Start date: 10/28/14 23:54:00, Duration: 30 day, Stop date: 11/27/14 23:53:00 Start Date: 10/28/14 Stop Date: 10/30/14 Status: Discontinued Dextrose 50% Syringe 12.5 gm, 25 mL, Route: IVP, Drug Form: INJ, Dosing Weight 104.545, kg, PRN, PRN Blood Glucose Results, Start date: 10/28/14 23:54:00, Duration: 30 day, Stop rhea e: 11/27/14 23:53:00 Start Date: 10/28/14 Stop Date: 10/30/14 Status: Discontinued enoxaparin 40 mg, 0.4 mL, Route: SUB-Q, Drug form: INJ, [id number], Dosing Weight 104.545, kg , Start date: 10/29/14 10:00:00, Duration: 30 day, Stop date: 11/27/14 10:00:00 Notes: (Same as: Lovenox) Start Date: 10/29/14 Stop Date: 10/30/14 Status: Discontinued glucagon 1 mg, Route: IM, Drug form: PDR/INJ, PRN, Dosing Weight 104.545, kg, PRN Blood G lucose Results, Start date: 10/28/14 23:54:00, Duration: 30 day, Stop date: 11/17 12/01 23:53:00 Start Date: 10/28/14 Stop Date: 10/30/14 Status: Discontinued hydrALAZINE 25 mg oral tablet 25 mg, 1 tab, Route: PO, Drug form: TAB, TID, Dosing Weight 104.545, kg, Start d ate: 10/29/14 13:00:00, Duration: 30 day, Stop date: 11/28/14 9:00:00 Notes: (Same as: Apresoline) May interfere w/enteral feedings Take With Food. Start Date: 10/29/14 Stop Date: 10/30/14 Status: Discontinued insulin aspart 2 unit, 0.02 mL, Route: SUB-Q, Drug form: SOLN, Bedtime, Dosing Weight 104.545, kg, PRN Blood Glucose Results, Start date: 10/28/14 23:54:00, Duration: 30 day, Stop date: 11/27/14 23:53:00 Notes: Roll in palms of hands gently; Do not shake vigorously. (Same as: NovoLO G)"single patient use only" Stable for 28 days at room temperature.Expires in _ ____ days from Date Start Date: 10/28/14 Stop Date: 10/30/14 Status: Discontinued insulin aspart 1 unit, 0.01 mL, Route: SUB-Q, Drug form: SOLN, Bedtime, Dosing Weight 104.545, kg, PRN Blood Glucose Results, Start date: 10/28/14 23:54:00, Duration: 30 day, Stop date: 11/27/14 23:53:00 Notes: Roll in palms of hands gently; Do not shake vigorously. (Same as: NovoLO G)"single patient use only" Stable for 28 days at room temperature.Expires in _ ____ days from Date Start Date: 10/28/14 Stop Date: 10/30/14 Status: Discontinued insulin aspart 4 unit, 0.04 mL, Route: SUB-Q, Drug form: SOLN, Bedtime, Dosing Weight 104.545, kg, PRN Blood Glucose Results, Start date: 10/28/14 23:54:00, Duration: 30 day, Stop date: 11/27/14 23:53:00 Notes: Roll in palms of hands gently; Do not shake vigorously. (Same as: NovoLO G)"single patient use only" Stable for 28 days at room temperature.Expires in _ ____ days from Date Start Date: 10/28/14 Stop Date: 10/30/14 Status: Discontinued insulin aspart 3 unit, 0.03 mL, Route: SUB-Q, Drug form: SOLN, Bedtime, Dosing Weight 104.545, kg, PRN Blood Glucose Results, Start date: 10/28/14 23:54:00, Duration: 30 day, Stop date: 11/27/14 23:53:00 Notes: Roll in palms of hands gently; Do not shake vigorously. (Same as: NovoLO G)"single patient use only" Stable for 28 days at room temperature.Expires in _ ____ days from Date Start Date: 10/28/14 Stop Date: 10/30/14 Status: Discontinued insulin aspart 1 unit, 0.01 mL, Route: SUB-Q, Drug form: SOLN, TID-Before Meals, Dosing Weight 104.545, kg, PRN Blood Glucose Results, Start date: 10/28/14 23:54:00, Duration: 30 day, Stop date: 11/27/14 23:53:00 Notes: Roll in palms of hands gently; Do not shake vigorously. (Same as: NovoLO G)"single patient use only" Stable for 28 days at room temperature.Expires in _ ____ days from Date Start Date: 10/28/14 Stop Date: 10/30/14 Status: Discontinued insulin aspart 3 unit, 0.03 mL, Route: SUB-Q, Drug form: SOLN, TID-Before Meals, Dosing Weight 104.545, kg, PRN Blood Glucose Results, Start date: 10/28/14 23:54:00, Duration: 30 day, Stop date: 11/27/14 23:53:00 Notes: Roll in palms of hands gently; Do not shake vigorously. (Same as: NovoLO G)"single patient use only" Stable for 28 days at room temperature.Expires in _ ____ days from Date Start Date: 10/28/14 Stop Date: 10/30/14 Status: Discontinued insulin aspart 2 unit, 0.02 mL, Route: SUB-Q, Drug form: SOLN, TID-Before Meals, Dosing Weight 104.545, kg, PRN Blood Glucose Results, Start date: 10/28/14 23:54:00, Duration: 30 day, Stop date: 11/27/14 23:53:00 Notes: Roll in palms of hands gently; Do not shake vigorously. (Same as: NovoLO G)"single patient use only" Stable for 28 days at room temperature.Expires in _ ____ days from Date Start Date: 10/28/14 Stop Date: 10/30/14 Status: Discontinued insulin aspart 5 unit, 0.05 mL, Route: SUB-Q, Drug form: SOLN, TID-Before Meals, Dosing Weight 104.545, kg, PRN Blood Glucose Results, Start date: 10/28/14 23:54:00, Duration: 30 day, Stop date: 11/27/14 23:53:00 Notes: Roll in palms of hands gently; Do not shake vigorously. (Same as: NovoLO G)"single patient use only" Stable for 28 days at room temperature.Expires in _ ____ days from Date Start Date: 10/28/14 Stop Date: 10/30/14 Status: Discontinued insulin aspart 4 unit, 0.04 mL, Route: SUB-Q, Drug form: SOLN, TID-Before Meals, Dosing Weight 104.545, kg, PRN Blood Glucose Results, Start date: 10/28/14 23:54:00, Duration: 30 day, Stop date: 11/27/14 23:53:00 Notes: Roll in palms of hands gently; Do not shake vigorously. (Same as: NovoLO G)"single patient use only" Stable for 28 days at room temperature.Expires in _ ____ days from Date Start Date: 10/28/14 Stop Date: 10/30/14 Status: Discontinued insulin aspart 10 unit, 0.1 mL, Route: SUB-Q, Drug form: SOLN, ONCE, Dosing Weight 104.545, kg, Priority: NOW, Start date: 10/29/14 16:39:00, Stop date: 10/29/14 16:39:00 Notes: Roll in palms of hands gently; Do not shake vigorously. (Same as: NovoLO G)"single patient use only" Stable for 28 days at room temperature.Expires in _ ____ days from Date Start Date: 10/29/14 Stop Date: 10/29/14 Status: Discontinued insulin lispro 15 unit, Route: SUB-Q, Drug form: SOLN, TID-Before Meals, Dosing Weight 104.545, kg, Start date: 10/29/14 11:30:00, Duration: 30 day, Stop date: 11/28/14 7:30:00 Start Date: 10/29/14 Stop Date: 10/29/14 Status: Deleted Levemir FlexPen 60 unit, 0.6 mL, Route: SUB-Q, Drug form: INJ, Bedtime, Dosing Weight 104.545, k g, Start date: 10/29/14 21:00:00, Duration: 30 day, Stop date: 11/27/14 21:00:00 Notes: Same as LevemirDo not hold insulin without contacting prescriber "single patient use only" Start Date: 10/29/14 Stop Date: 10/30/14 Status: Discontinued lisinopril 30 mg, 3 tab, Route: PO, Drug form: TAB, BID, Dosing Weight 104.545, kg, Start d ate: 10/29/14 17:00:00, Duration: 30 day, Stop date: 11/28/14 9:00:00 Notes: (Same as: Prinivil, Zestril) Start Date: 10/29/14 Stop Date: 10/30/14 Status: Discontinued NovoLOG FlexPen 15 unit, 0.15 mL, Route: SUB-Q, Drug form: SOLN, TID-Before Meals, Start date: 12/30/13 11:30:00, Duration: 30 day, Stop date: 11/28/14 7:30:00 Notes: Roll in palms of hands gently; Do not shake vigorously. (Same as: NovoLO G)"single patient use only" Stable for 28 days at room temperature.Expires in _ ____ days from Date Start Date: 10/29/14 Stop Date: 10/30/14 Status: Discontinued oxybutynin 5 mg, 1 tab, Route: PO, Drug form: TAB, Daily, Dosing Weight 104.545, kg, Start date: 10/30/14 9:00:00, Duration: 30 day, Stop date: 11/28/14 9:00:00 Notes: Same as: Ditropan) Start Date: 10/30/14 Stop Date: 10/30/14 Status: Discontinued oxybutynin 5 mg, PO, Daily, 0 Refill(s) Start Date: 10/28/14 Status: Suspended pantoprazole 40 mg, 1 tab, Route: PO, Drug form: ECTAB, Before Dinner, Dosing Weight 104.545, kg, Start date: 10/29/14 16:30:00, Duration: 30 day, Stop date: 11/27/14 16:30: 00 Notes: Tablet should not be chewed or crushed.(Same as: Protonix) Start Date: 10/29/14 Stop Date: 10/30/14 Status: Discontinued phenazopyridine 200 mg, 1 tab, Route: PO, Drug form: TAB, TID-After Meals, Dosing Weight 104.545 , kg, Start date: 10/29/14 12:30:00, Duration: 30 day, Stop date: 11/28/14 8:30: 00 Notes: Give with meals.(Same as: Pyridium) Start Date: 10/29/14 Stop Date: 10/30/14 Status: Discontinued Tylenol with Codeine #3 oral tablet Route: PO, Drug Form: TAB, Dosing Weight 104.545, kg, Q4H, PRN as needed for mireille n, Start date: 10/29/14 9:59:00, Stop date: 11/22/14 16:46:00 Notes: Do not exceed 4gm/day of acetaminophen. (Same as: Tylenol with Codeine # 3) Start Date: 10/29/14 Stop Date: 10/30/14 Status: Discontinued Zyvox 600 mg, 300 mL, Route: IVPB, Drug form: SOLN, [id number], Dosing Weight 104.545, kg , Start date: 10/29/14 0:00:00, Duration: 30 day, Stop date: 11/27/14 12:00:00 Notes: (Same as: Zyvox) Start Date: 10/29/14 Stop Date: 10/30/14 Status: Discontinued Results ELECTROLYTES Most recent to 1 2 oldest [Reference Range]: Sodium Lvl [135-145 135 mEq/L mEq/L] (10/30/14 5:38 AM) Potassium Lvl 3.5 mEq/L [3.5-5.1 mEq/L] (10/30/14 5:38 AM) Chloride Lvl [95-109 97 mEq/L mEq/L] (10/30/14 5:38 AM) CO2 [24-32 mEq/L] 28 mEq/L (10/30/14 5:38 AM) AGAP [10.0-20.0 13.5 mEq/L mEq/L] (10/30/14 5:38 AM) CHEM PANEL Most recent to 1 2 oldest [Reference Range]: Creatinine Lvl 0.7 mg/dL [0.5-1.4 mg/dL] (10/30/14 5:38 AM) eGFR 94 mL/min/1.73m2 1 *NA* (10/30/14 5:38 AM) BUN [7-22 mg/dL] 10 mg/dL (10/30/14 5:38 AM) Glucose Lvl [70-99 330 mg/dL 2 422 mg/dL 3, 4 mg/dL] *HI* *CRIT* (10/30/14 5:38 AM) (10/29/14 4:26 PM) Calcium Lvl 8.3 mg/dL [8.5-10.5 mg/dL] *LOW* (10/30/14 5:38 AM) 1Result Comment: The eGFR is calculated [...] values reflect the clinical guidelines of the [place] [employer]. 3Result Comment: Critical Result(s) called to JUAN CAMPOVERDE at 10/29/2014 17:47 by CV. Read back OK. 4Interpretive Data: Adult reference range values reflect the clinical guidelines of the [place] [employer]. HEMATOLOGY Most recent to 1 2 oldest [Reference Range]: WBC [3.7-10.4 K/CMM] 4.1 K/CMM (10/30/14 5:38 AM) RBC [4.20-5.40 3.88 M/CMM M/CMM] *LOW* (10/30/14 5:38 AM) Hgb [12.0-16.0 g/dL] 11.5 g/dL *LOW* (10/30/14 5:38 AM) Hct [36.0-48.0 %] 35.0 % *LOW* (10/30/14 5:38 AM) MCV [80.0-98.0 fL] 90.0 fL (10/30/14 5:38 AM) MCH [27.0-31.0 pg] 29.7 pg (10/30/14 5:38 AM) MCHC [32.0-36.0 33.0 g/dL g/dL] (10/30/14 5:38 AM) RDW [11.5-14.5 %] 13.0 % (10/30/14 5:38 AM) Platelet [133-450 303 K/CMM K/CMM] (10/30/14 5:38 AM) MPV [7.4-10.4 fL] 8.3 fL (10/30/14 5:38 AM) Segs [45.0-75.0 %] 50.9 % (10/30/14 5:38 AM) Lymphocytes 28.3 % [20.0-40.0 %] (10/30/14 5:38 AM) Monocytes [2.0-12.0 12.3 % %] *HI* (10/30/14 5:38 AM) Eosinophils [0.0-4.0 7.6 % %] *HI* (10/30/14 5:38 AM) Basophils [0.0-1.0 0.9 % %] (10/30/14 5:38 AM) Segs-Bands # 2.1 K/CMM [1.5-8.1 K/CMM] (10/30/14 5:38 AM) Lymphocytes # 1.1 K/CMM [1.0-5.5 K/CMM] (10/30/14 5:38 AM) Monocytes # [0.0-0.8 0.5 K/CMM K/CMM] (10/30/14 5:38 AM) Eosinophils # 0.3 K/CMM [0.0-0.5 K/CMM] (10/30/14 5:38 AM) Medications Administered During Your Visit No data available for this section Immunizations No data available for this section Social History Social History Type Response Substance Abuse Use: None Alcohol Use: Never Smoking Status Never smoker, Exposure to Tobacco Smoke None, Cigarette Smoking Last 365 Days No, Reg Smoking Cessation Counseling No
--- OUTSIDE RECORDS SUMMARY | 2019-03-23 18:37 | XMS REPORT | Summary of Care ---
Author Organization Unknown Address Unknown Phone Unavailable Encounter [facility](JOVANNY) [id number] Date(s): 10/05/14 - 10/13/14 [facility] [address] Discharge Disposition: Home Physician Attending: Keven Pascual DO Physician Admitting: Keven Pascual DO Reason for Visit UPPER GI BLEED Vital Signs 1 2 3 Most recent to oldest [Reference Range]: 165.1 cm (10/05/14 11:25 PM) 165.1 cm (10/05/14 6:28 PM) Height 98.2 DegF (10/13/14 12:27 PM) 97.6 DegF (10/13/14 7:40 AM) 98.3 DegF (10/13/14 4:09 AM) Temperature Oral [96.4-99.1 DegF] 107 mmHg (10/13/14 12:27 PM) 168 mmHg *HI* (10/13/14 7:40 AM) 104 mmHg (10/13/14 4:09 AM) Systolic Blood Pressure [90-140 mmHg] 69 mmHg (10/13/14 12:27 PM) 73 mmHg (10/13/14 7:40 AM) 67 mmHg (10/13/14 4:09 AM) Diastolic Blood Pressure [60-90 mmHg] 16 BRMIN (10/13/14 12:27 PM) 15 BRMIN (10/13/14 8:07 AM) 16 BRMIN (10/13/14 7:40 AM) Respiratory Rate [14-20 BRMIN] 89 bpm (10/13/14 12:27 PM) 80 bpm (10/13/14 7:40 AM) 75 bpm (10/13/14 4:09 AM) Peripheral Pulse Rate [60-100 bpm] 109.955 kg (10/10/14 5:10 AM) 106.818 kg (10/05/14 11:25 PM) 106.818 kg (10/05/14 6:28 PM) Weight 39.19 m2 (10/05/14 11:25 PM) 39.19 m2 (10/05/14 6:28 PM) Body Mass Index Problem List Condition Effective Dates Status Health Status Informant Catheterization(Conf Resolved irmed)1 Degenerative disc Resolved disease(Confirmed) DM - Diabetes Active mellitus(Confirmed) GERD Active (gastroesophageal reflux disease)(Confirmed) HTN - Active Hypertension(Confirm ed) Hyperglycemia(Confir Active med) Syncope(Confirmed) 05/11/09 Resolved Thyroid Resolved disorder(Confirmed) UTI - Urinary tract Active infection(Confirmed) 1heart Allergies, Adverse Reactions, Alerts Substance Reaction Severity Status influenza virus vaccine, Influenza virus vaccine Active inactivated Januvia Active metformin Active Medications 1/2NS + KCL 20mEq/L 1000ml (Premix) 1,000 mL 1,000 mL, Rate: 125 ml/hr, Infuse over: 8 hr, Route: IV, Dosing Weight 106.818 k g, Total Volume: 1,000, Start date: 10/05/14 23:21:00, Duration: 30 day, Stop da te: 11/04/14 23:20:00 Start Date: 10/05/14 Stop Date: 10/13/14 Status: Discontinued acetaminophen-codeine 15 mL, Route: PO, Drug Form: LIQ, PRN, PRN Pain, Start date: 10/12/14 15:31:00, Duration: 30 day, Stop date: 11/11/14 15:30:00 Notes: (acetaminophen-codeine 120-12 mg/5 ml oral liq) Do not exceed 4gm/day of acetaminophen. (Same as: Tylenol w/Codeine) Start Date: 10/12/14 Stop Date: 10/13/14 Status: Discontinued atropine 0.5 mg, 5 mL, Route: IVP, Drug form: INJ, ONCE, Dosing Weight 106.818, kg, PRN B radycardia, Start date: 10/06/14 1:55:00, symptomatic bradycardia of <44BPM Start Date: 10/06/14 Stop Date: 10/13/14 Status: Discontinued Benadryl 12.5 mg, 0.25 mL, Route: IVP, Drug form: INJ, ONCE, Dosing Weight 109.955, Start date: 10/12/14 22:30:00, Stop date: 10/12/14 22:30:00 Notes: (Same as: Benadryl) Start Date: 10/12/14 Stop Date: 10/12/14 Status: Completed Carafate 1 g/10 mL oral suspension 1 gm, 10 mL, Route: PO, Drug form: SUSP, QID, Dosing Weight 106.818, kg, Start d ate: 10/07/14 13:00:00, Duration: 30 day, Stop date: 11/06/14 9:00:00 Notes: Enteral feeds may interfere with the absorption of this medication. Cain e well. Take 1 hr before or 2 hrs after antacids, dairy pdt, minerals & meals. (Same As: Carafate) Start Date: 10/07/14 Stop Date: 10/11/14 Status: Discontinued cefOXitin (SCIP) + Sodium Chloride 0.9% IV 100 mL 2 gm, Route: IVPB, Q6H, Dosing Weight 109.955, kg, Start date: 10/11/14 18:00:00 , Duration: 1 doses or times, Stop date: 10/11/14 18:00:00 Notes: (Same As: Mefoxin) Start Date: 10/11/14 Stop Date: 10/11/14 Status: Completed Dextrose 50% Syringe 12.5 gm, 25 mL, Route: IVP, Drug Form: INJ, Dosing Weight 106.818, kg, PRN, PRN Blood Glucose Results, Start date: 10/06/14 10:59:00, Duration: 30 day, Stop rhea e: 11/05/14 10:58:00 Start Date: 10/06/14 Stop Date: 10/13/14 Status: Discontinued Dextrose 50% Syringe 25 gm, 50 mL, Route: IVP, Drug Form: INJ, Dosing Weight 106.818, kg, PRN, PRN Bl ood Glucose Results, Start date: 10/06/14 10:59:00, Duration: 30 day, Stop date: 11/05/14 10:58:00 Start Date: 10/06/14 Stop Date: 10/13/14 Status: Discontinued Dextrose 50% Syringe 25 gm, 50 mL, Route: IVP, Drug Form: INJ, Dosing Weight 106.818, kg, PRN, PRN Bl ood Glucose Results, Start date: 10/05/14 23:34:00, Duration: 30 day, Stop date: 11/04/14 23:33:00 Start Date: 10/05/14 Stop Date: 10/06/14 Status: Discontinued Dextrose 50% Syringe 12.5 gm, 25 mL, Route: IVP, Drug Form: INJ, Dosing Weight 106.818, kg, PRN, PRN Blood Glucose Results, Start date: 10/05/14 23:34:00, Duration: 30 day, Stop rhea e: 11/04/14 23:33:00 Start Date: 10/05/14 Stop Date: 10/06/14 Status: Discontinued Dilaudid 0.5 mg, Route: IVP, ONCE, Dosing Weight 109.955, kg, Priority: STAT, Start date: 10/11/14 17:15:00, Stop date: 10/11/14 17:15:00 Start Date: 10/11/14 Stop Date: 10/11/14 Status: Completed Dilaudid 0.5 mg, Route: IVP, ONCE, Dosing Weight 109.955, kg, Priority: STAT, Start date: 10/11/14 17:39:00, Stop date: 10/11/14 17:39:00 Start Date: 10/11/14 Stop Date: 10/11/14 Status: Completed Dilaudid 0.5 mg, Route: IVP, ONCE, Dosing Weight 109.955, kg, Priority: STAT, Start date: 10/11/14 17:31:00, Stop date: 10/11/14 17:31:00 Start Date: 10/11/14 Stop Date: 10/11/14 Status: Completed Dilaudid 0.5 mg, Route: IVP, ONCE, Dosing Weight 109.955, kg, Priority: STAT, Start date: 10/11/14 17:12:00, Stop date: 10/11/14 17:12:00 Start Date: 10/11/14 Stop Date: 10/11/14 Status: Completed enoxaparin 30 mg, Route: SUB-Q, Drug form: INJ, [id number], Dosing Weight 109.955, kg, Start date: 10/11/14 17:00:00, Duration: 30 day, Stop date: 11/10/14 5:00:00 Start Date: 10/11/14 Stop Date: 10/11/14 Status: Discontinued enoxaparin 30 mg, 0.3 mL, Route: SUB-Q, Drug form: INJ, [id number], Dosing Weight 109.955, kg , Start date: 10/12/14 6:00:00, Duration: 30 day, Stop date: 11/10/14 18:00:00 Notes: (Same as: Lovenox) Start Date: 10/12/14 Stop Date: 10/13/14 Status: Discontinued flumazenil 0.1 mg, 1 mL, Route: IVP, Drug form: INJ, Q5Min, Dosing Weight 106.818, kg, PRN Other -See Comment, Start date: 10/06/14 15:01:00, Duration: 30 day, Stop date: 11/05/14 15:00:00 Notes: (Same as: Romazicon) Start Date: 10/06/14 Stop Date: 10/13/14 Status: Discontinued flumazenil 0.2 mg, 2 mL, Route: IVP, Drug form: INJ, PRN, Dosing Weight 106.818, kg, PRN Ot her -See Comment, Start date: 10/06/14 15:01:00, Duration: 1 doses or times, Sto p date: Limited # of times Notes: (Same as: Romazicon) Start Date: 10/06/14 Stop Date: 10/13/14 Status: Discontinued glucagon 1 mg, Route: IM, Drug form: PDR/INJ, PRN, Dosing Weight 106.818, kg, PRN Blood G lucose Results, Start date: 10/06/14 10:59:00, Duration: 30 day, Stop date: 10/18 10:58:00 Start Date: 10/06/14 Stop Date: 10/13/14 Status: Discontinued glucagon 1 mg, Route: IM, Drug form: PDR/INJ, PRN, Dosing Weight 106.818, kg, PRN Blood G lucose Results, Start date: 10/05/14 23:34:00, Duration: 30 day, Stop date: 10/17 07/31 23:33:00 Start Date: 10/05/14 Stop Date: 10/06/14 Status: Discontinued Humalog Kwik Pen 100 units/mL subcutaneous injection 15 unit, SUB-Q, TID-Before Meals Start Date: 10/05/14 Status: Ordered hydrALAZINE 10 mg, 0.5 mL, Route: IV, Drug form: INJ, Q6H, Dosing Weight 109.955, kg, PRN Hy pertension, Start date: 10/12/14 0:40:00, Duration: 30 day, Stop date: 11/11/14 0:39:00 Notes: (Same as: Apresoline)Push over 5 minutes Start Date: 10/12/14 Stop Date: 10/13/14 Status: Discontinued insulin aspart 6 unit, 0.06 mL, Route: SUB-Q, Drug form: SOLN, TID-Before Meals, Dosing Weight 106.818, kg, PRN Blood Glucose Results, Start date: 10/06/14 10:59:00, Duration: 30 day, Stop date: 11/05/14 10:58:00 Notes: Roll in palms of hands gently; Do not shake vigorously. (Same as: NovoLO G)"single patient use only" Stable for 28 days at room temperature.Expires in _ ____ days from Date Start Date: 10/06/14 Stop Date: 10/13/14 Status: Discontinued insulin aspart 9 unit, 0.09 mL, Route: SUB-Q, Drug form: SOLN, TID-Before Meals, Dosing Weight 106.818, kg, PRN Blood Glucose Results, Start date: 10/06/14 10:59:00, Duration: 30 day, Stop date: 11/05/14 10:58:00 Notes: Roll in palms of hands gently; Do not shake vigorously. (Same as: NovoLO G)"single patient use only" Stable for 28 days at room temperature.Expires in _ ____ days from Date Start Date: 10/06/14 Stop Date: 10/13/14 Status: Discontinued insulin aspart 3 unit, 0.03 mL, Route: SUB-Q, Drug form: SOLN, TID-Before Meals, Dosing Weight 106.818, kg, PRN Blood Glucose Results, Start date: 10/06/14 10:59:00, Duration: 30 day, Stop date: 11/05/14 10:58:00 Notes: Roll in palms of hands gently; Do not shake vigorously. (Same as: NovoLO G)"single patient use only" Stable for 28 days at room temperature.Expires in _ ____ days from Date Start Date: 10/06/14 Stop Date: 10/13/14 Status: Discontinued insulin aspart 3 unit, 0.03 mL, Route: SUB-Q, Drug form: SOLN, Bedtime, Dosing Weight 106.818, kg, PRN Blood Glucose Results, Start date: 10/06/14 10:59:00, Duration: 30 day, Stop date: 11/05/14 10:58:00 Notes: Roll in palms of hands gently; Do not shake vigorously. (Same as: NovoLO G)"single patient use only" Stable for 28 days at room temperature.Expires in _ ____ days from Date Start Date: 10/06/14 Stop Date: 10/13/14 Status: Discontinued insulin aspart 4 unit, 0.04 mL, Route: SUB-Q, Drug form: SOLN, Bedtime, Dosing Weight 106.818, kg, PRN Blood Glucose Results, Start date: 10/06/14 10:59:00, Duration: 30 day, Stop date: 11/05/14 10:58:00 Notes: Roll in palms of hands gently; Do not shake vigorously. (Same as: NovoLO G)"single patient use only" Stable for 28 days at room temperature.Expires in _ ____ days from Date Start Date: 10/06/14 Stop Date: 10/13/14 Status: Discontinued insulin aspart 2 unit, 0.02 mL, Route: SUB-Q, Drug form: SOLN, Bedtime, Dosing Weight 106.818, kg, PRN Blood Glucose Results, Start date: 10/06/14 10:59:00, Duration: 30 day, Stop date: 11/05/14 10:58:00 Notes: Roll in palms of hands gently; Do not shake vigorously. (Same as: NovoLO G)"single patient use only" Stable for 28 days at room temperature.Expires in _ ____ days from Date Start Date: 10/06/14 Stop Date: 10/13/14 Status: Discontinued insulin aspart 12 unit, 0.12 mL, Route: SUB-Q, Drug form: SOLN, TID-Before Meals, Dosing Weight 106.818, kg, PRN Blood Glucose Results, Start date: 10/06/14 10:59:00, Duration: 30 day, Stop date: 11/05/14 10:58:00 Notes: Roll in palms of hands gently; Do not shake vigorously. (Same as: NovoLO G)"single patient use only" Stable for 28 days at room temperature.Expires in _ ____ days from Date Start Date: 10/06/14 Stop Date: 10/13/14 Status: Discontinued insulin aspart 15 unit, 0.15 mL, Route: SUB-Q, Drug form: SOLN, TID-Before Meals, Dosing Weight 106.818, kg, PRN Blood Glucose Results, Start date: 10/06/14 10:59:00, Duration: 30 day, Stop date: 11/05/14 10:58:00 Notes: Roll in palms of hands gently; Do not shake vigorously. (Same as: NovoLO G)"single patient use only" Stable for 28 days at room temperature.Expires in _ ____ days from Date Start Date: 10/06/14 Stop Date: 10/13/14 Status: Discontinued insulin aspart 1 unit, 0.01 mL, Route: SUB-Q, Drug form: SOLN, Bedtime, Dosing Weight 106.818, kg, PRN Blood Glucose Results, Start date: 10/06/14 10:59:00, Duration: 30 day, Stop date: 11/05/14 10:58:00 Notes: Roll in palms of hands gently; Do not shake vigorously. (Same as: NovoLO G)"single patient use only" Stable for 28 days at room temperature.Expires in _ ____ days from Date Start Date: 10/06/14 Stop Date: 10/13/14 Status: Discontinued insulin aspart 8 unit, 0.08 mL, Route: SUB-Q, Drug form: SOLN, Sliding Scale, Dosing Weight 106 .818, kg, PRN Blood Glucose Results, Start date: 10/05/14 23:34:00, Duration: 30 day, Stop date: 11/04/14 23:33:00 Notes: Roll in palms of hands gently; Do not shake vigorously. (Same as: NovoLO G)"single patient use only" Stable for 28 days at room temperature.Expires in _ ____ days from Date Start Date: 10/05/14 Stop Date: 10/06/14 Status: Discontinued insulin aspart 6 unit, 0.06 mL, Route: SUB-Q, Drug form: SOLN, Sliding Scale, Dosing Weight 106 .818, kg, PRN Blood Glucose Results, Start date: 10/05/14 23:34:00, Duration: 30 day, Stop date: 11/04/14 23:33:00 Notes: Roll in palms of hands gently; Do not shake vigorously. (Same as: NovoLO G)"single patient use only" Stable for 28 days at room temperature.Expires in _ ____ days from Date Start Date: 10/05/14 Stop Date: 10/06/14 Status: Discontinued insulin aspart 10 unit, 0.1 mL, Route: SUB-Q, Drug form: SOLN, Sliding Scale, Dosing Weight 106 .818, kg, PRN Blood Glucose Results, Start date: 10/05/14 23:34:00, Duration: 30 day, Stop date: 11/04/14 23:33:00 Notes: Roll in palms of hands gently; Do not shake vigorously. (Same as: NovoLO G)"single patient use only" Stable for 28 days at room temperature.Expires in _ ____ days from Date Start Date: 10/05/14 Stop Date: 10/06/14 Status: Discontinued insulin aspart 4 unit, 0.04 mL, Route: SUB-Q, Drug form: SOLN, Sliding Scale, Dosing Weight 106 .818, kg, PRN Blood Glucose Results, Start date: 10/05/14 23:34:00, Duration: 30 day, Stop date: 11/04/14 23:33:00 Notes: Roll in palms of hands gently; Do not shake vigorously. (Same as: NovoLO G)"single patient use only" Stable for 28 days at room temperature.Expires in _ ____ days from Date Start Date: 10/05/14 Stop Date: 10/06/14 Status: Discontinued insulin aspart 2 unit, 0.02 mL, Route: SUB-Q, Drug form: SOLN, Sliding Scale, Dosing Weight 106 .818, kg, PRN Blood Glucose Results, Start date: 10/05/14 23:34:00, Duration: 30 day, Stop date: 11/04/14 23:33:00 Notes: Roll in palms of hands gently; Do not shake vigorously. (Same as: NovoLO G)"single patient use only" Stable for 28 days at room temperature.Expires in _ ____ days from Date Start Date: 10/05/14 Stop Date: 10/06/14 Status: Discontinued insulin lispro 10 unit, Route: SUB-Q, Drug form: SOLN, TID-Before Meals, Dosing Weight 106.818, kg, Start date: 10/06/14 11:30:00, Duration: 30 day, Stop date: 11/05/14 7:30:00 Start Date: 10/06/14 Stop Date: 10/06/14 Status: Deleted Januvia 50 mg oral tablet 50 mg=1 tab, PO, Daily Start Date: 10/05/14 Status: Ordered Levemir FlexPen 10 unit, 0.1 mL, Route: SUB-Q, Drug form: INJ, Bedtime, Dosing Weight 106.818, k g, Start date: 10/12/14 21:00:00, Duration: 30 day, Stop date: 11/10/14 21:00:00 Notes: Same as LevemirDo not hold insulin without contacting prescriber "single patient use only" Start Date: 10/12/14 Stop Date: 10/13/14 Status: Discontinued Levemir FlexPen 15 unit, 0.15 mL, Route: SUB-Q, Drug form: INJ, Bedtime, Dosing Weight 106.818, kg, Start date: 10/06/14 21:00:00, Stop date: 11/04/14 21:00:00 Notes: Same as LevemirDo not hold insulin without contacting prescriber "single patient use only" Start Date: 10/06/14 Stop Date: 10/12/14 Status: Discontinued Levemir FlexPen 100 units/mL subcutaneous solution 60 unit, SUB-Q, Bedtime Start Date: 10/05/14 Status: Ordered lisinopril 30 mg oral tablet 30 mg=1 tab, PO, BID Start Date: 10/05/14 Status: Ordered LR IV 3000 mL 3,000 mL, Rate: 100 ml/hr, Infuse over: 30 hr, Route: IV, Dosing Weight 106.818 kg, Total Volume: 3,000, Start date: 10/07/14 20:24:00, Duration: 30 day, Stop d ate: 11/06/14 20:23:00 Start Date: 10/07/14 Stop Date: 10/07/14 Status: Discontinued morphine Sulfate 2 mg, 1 mL, Route: IVP, Drug form: INJ, Q4H, Dosing Weight 106.818, kg, PRN Pain , Start date: 10/06/14 11:02:00, Duration: 30 day, Stop date: 11/05/14 11:01:00 Notes: (Same as:MORPhine Sulfate) Start Date: 10/06/14 Stop Date: 10/12/14 Status: Discontinued morphine Sulfate 4 mg, 2 mL, Route: IVP, Drug form: INJ, ONCE, Dosing Weight 106.818, kg, Start d ate: 10/05/14 22:27:00, Stop date: 10/05/14 22:27:00 Notes: (Same as:MORPhine Sulfate) Start Date: 10/05/14 Stop Date: 10/05/14 Status: Completed naloxone 0.1 mg, 0.25 mL, Route: IVP, Drug form: INJ, Q2MIN, Dosing Weight 106.818, kg, P RN Narcotic Reversal, Start date: 10/06/14 15:01:00, Duration: 4 doses or times, Stop date: Limited # of times Notes: Same as Narcan Start Date: 10/06/14 Stop Date: 10/13/14 Status: Discontinued NexIUM 40 mg oral delayed release capsule 40 mg=1 cap, PO, Daily Start Date: 10/05/14 Status: Ordered nitrofurantoin macrocrystals-monohydrate 100 mg oral capsule (Macrobid) 100 mg=1 cap, PO, Q12H, x7 days; started 09/21/14, # 30 cap, 0 Refill(s) Special Instructions: x7 days; started 09/21/14 Start Date: 10/13/14 Stop Date: 10/13/14 Status: Discontinued nitrofurantoin macrocrystals-monohydrate 100 mg oral capsule (Macrobid) 100 mg=1 cap, PO, Q12H, x7 days; started 09/21/14 Special Instructions: x7 days; started 09/21/14 Start Date: 10/05/14 Stop Date: 10/13/14 Status: Discontinued nitroglycerin 0.4 mg sublingual tablet 0.4 mg, 1 tab, Route: SL, Drug form: TAB, Q5Min, Dosing Weight 106.818, kg, PRN Chest Pain, Start date: 10/06/14 1:55:00, Duration: 30 day, Stop date: 11/05/14 1:54:00 Notes: (Same as:Nitroquick, Nitrostat)"Do Not Crush" Sublingual tablet Start Date: 10/06/14 Stop Date: 10/13/14 Status: Discontinued [place] 7.5/325 oral tablet 1 tab, Route: PO, Drug Form: TAB, Dosing Weight 109.955, kg, Q4H, PRN Pain Score 4-6, Start date: 10/12/14 22:32:00, Duration: 30 day, Stop date: 11/11/14 22:31 :00 Notes: Same as [place] 325-7.5mg Do not exceed 4gm/day of acetaminophen. Start Date: 10/12/14 Stop Date: 10/13/14 Status: Discontinued NovoLOG FlexPen 10 unit, 0.1 mL, Route: SUB-Q, Drug form: SOLN, TID-Meals, Start date: 10/06/14 12:00:00, Duration: 30 day, Stop date: 11/05/14 8:00:00 Notes: Roll in palms of hands gently; Do not shake vigorously. (Same as: NovoJUANA G)"single patient use only" Stable for 28 days at room temperature.Expires in _ ____ days from Date Start Date: 10/06/14 Stop Date: 10/08/14 Status: Discontinued ondansetron 4 mg, 2 mL, Route: IVP, Drug form: INJ, ONCE, Dosing Weight 106.818, kg, Priorit y: STAT, Start date: 10/05/14 19:46:00, Stop date: 10/05/14 19:46:00 Notes: (Same as: Zofran) Start Date: 10/05/14 Stop Date: 10/05/14 Status: Completed oxybutynin 10 mg, 2 tab, Route: PO, Drug form: ERTAB, Daily, Dosing Weight 106.818, kg, Sta rt date: 10/07/14 9:00:00, Duration: 30 day, Stop date: 11/05/14 9:00:00 Notes: (Same as: Ditropan XL) "Do Not Crush" Start Date: 10/07/14 Stop Date: 10/13/14 Status: Discontinued oxybutynin 10 mg oral tablet, extended release 10 mg=1 tab, PO, Daily Start Date: 10/05/14 Status: Ordered pantoprazole 40 mg, 1 tab, Route: PO, Drug form: ECTAB, Daily, Dosing Weight 109.955, kg, Sta rt date: 10/12/14 9:00:00, Duration: 30 day, Stop date: 11/10/14 9:00:00 Notes: Tablet should not be chewed or crushed.(Same as: Protonix) Start Date: 10/12/14 Stop Date: 10/12/14 Status: Discontinued pantoprazole 40 mg oral enteric coated tablet 40 mg=1 tab, PO, Before Dinner, # 30 tab, 0 Refill(s) Start Date: 10/13/14 Status: Ordered pantoprazole 80 mg + Sodium Chloride 0.9% IV 100 mL 100 mL, Rate: 10 ml/hr, Infuse over: 10 hr, Route: IV, Dosing Weight 106.818 kg, Total Volume: 100, Start date: 10/05/14 23:21:00, Duration: 72 hr, Stop date: 12/08/13 23:20:00 Start Date: 10/05/14 Stop Date: 10/06/14 Status: Discontinued Phenergan 25 mg oral tablet 25 mg=1 tab, PO, Q6H, Nausea, # 15 tab, 0 Refill(s) Start Date: 10/11/14 Status: Ordered Protonix 80 mg, Route: IVP, Drug form: INJ, ONCE, Start date: 10/05/14 19:51:00, Stop rhea e: 10/05/14 19:51:00 Notes: For IV push reconstitute with 10 ml 0.9% sodium chloride and push over 2 minutes. (Same as: Protonix) Start Date: 10/05/14 Stop Date: 10/05/14 Status: Completed Protonix 40 mg, Route: IVP, Drug form: INJ, BID, Dosing Weight 106.818, kg, Start date: 12/06/13 17:00:00, Duration: 30 day, Stop date: 11/05/14 9:00:00 Notes: For IV push reconstitute with 10 ml 0.9% sodium chloride and push over 2 minutes. (Same as: Protonix) Start Date: 10/06/14 Stop Date: 10/11/14 Status: Discontinued Protonix 40 mg, Route: IVP, Drug form: INJ, Before Dinner, Start date: 10/12/14 16:30:00, Duration: 30 day, Stop date: 11/10/14 16:30:00 Notes: For IV push reconstitute with 10 ml 0.9% sodium chloride and push over 2 minutes. (Same as: Protonix) Start Date: 10/12/14 Stop Date: 10/13/14 Status: Discontinued Protonix 40 mg, 1 tab, Route: PO, Drug form: ECTAB, Before Dinner, Start date: 10/13/14 1 6:30:00, Duration: 30 day, Stop date: 11/11/14 16:30:00 Notes: Tablet should not be chewed or crushed.(Same as: Protonix) Start Date: 10/13/14 Stop Date: 10/13/14 Status: Discontinued Reglan 10 mg, 2 mL, Route: IVP, Drug form: INJ, Q6H, Dosing Weight 106.818, kg, Start d ate: 10/08/14 18:00:00, Duration: 30 day, Stop date: 11/07/14 12:00:00 Notes: (Same as: Reglan) Start Date: 10/08/14 Stop Date: 10/11/14 Status: Discontinued Rocephin 1 gm, Route: IVPB, Drug form: PDR/INJ, ONCE, Dosing Weight 109.955, kg, Start da te: 10/11/14 14:36:00, Stop date: 10/11/14 14:36:00 Start Date: 10/11/14 Stop Date: 10/11/14 Status: Completed Saline Flush 0.9% 10 ml, Route: IVP, Drug Form: INJ, Dosing Weight 106.818, kg, PRN, PRN Line Flus h, Start date: 10/05/14 23:21:00, Duration: 30 day, Stop date: 11/04/14 23:20:00 Notes: (Same as: BD Posiflush) Start Date: 10/05/14 Stop Date: 10/13/14 Status: Discontinued Sodium Chloride 0.9% (Bolus) IV 500 mL, 500 ml/hr, Infuse Over: 1 hr, Route: IV, 500, Drug form: INJ, ONCE, Prio rity: STAT, Dosing Weight 106.818 kg, Start date: 10/05/14 22:28:00, Duration: 1 doses or times, Stop date: 10/05/14 22:28:00 Start Date: 10/05/14 Stop Date: 10/05/14 Status: Completed Sodium Chloride 0.9% (Bolus) IV 500 mL, 500 ml/hr, Infuse Over: 1 hr, Route: IV, 500, Drug form: INJ, ONCE, Prio rity: STAT, Dosing Weight 106.818 kg, Start date: 10/05/14 19:47:00, Duration: 1 doses or times, Stop date: 10/05/14 19:47:00 Start Date: 10/05/14 Stop Date: 10/05/14 Status: Completed Sodium Chloride 0.9% (Bolus) IV 500 mL, Route: IV, Drug form: INJ, ONCE, Dosing Weight 106.818 kg, Start date: 12/06/13 11:55:00, Stop date: 10/06/14 11:55:00, Bolus Start Date: 10/06/14 Stop Date: 10/06/14 Status: Discontinued Sodium Chloride 0.9% (Bolus) IV 500 mL, 500 ml/hr, Infuse Over: 1 hr, Route: IV, 500, Drug form: INJ, ONCE, Prio rity: STAT, Dosing Weight 106.818 kg, Start date: 10/05/14 22:25:00, Duration: 1 doses or times, Stop date: 10/05/14 22:25:00 Start Date: 10/05/14 Stop Date: 10/05/14 Status: Completed Sodium Chloride 0.9% IV 20 mL + pantoprazole 80 mg 20 mL, Rate: 240 ml/hr, Infuse over: 5 minutes, Route: IVP, Dosing Weight 106.81 8 kg, Total Volume: 20, Start date: 10/05/14 19:46:00, Duration: 1 doses or time s, Stop date: 10/05/14 19:50:00 Start Date: 10/05/14 Stop Date: 10/05/14 Status: Deleted Tylenol 650 mg, 2 tab, Route: PO, Drug form: TAB, Q6H, Dosing Weight 106.818, kg, PRN Pa in, Start date: 10/06/14 11:02:00, Duration: 30 day, Stop date: 11/05/14 11:01:0 0 Notes: Do not exceed 4 gm/day. (Same as: Tylenol) Start Date: 10/06/14 Stop Date: 10/11/14 Status: Discontinued Tylenol with Codeine #3 oral tablet 1 - 2 tab, PO, Q4H, Pain, # 30 tab, 2 Refill(s) Start Date: 10/11/14 Stop Date: 11/22/14 Status: Ordered Tylenol with Codeine #3 oral tablet 15 mL, Route: PO, Drug Form: ELIX, Dosing Weight 109.955, kg, PRN, PRN as needed for pain, Start date: 10/12/14 14:14:00, Duration: 30 day, Stop date: 11/11/14 14:13:00 Start Date: 10/12/14 Stop Date: 10/12/14 Status: Deleted Zofran 4 mg, 2 mL, Route: IV, Drug form: INJ, Q8H, Dosing Weight 106.818, kg, PRN Nause a, Start date: 10/05/14 23:21:00, Duration: 30 day, Stop date: 11/04/14 23:20:00 Notes: (Same as: Zofran) Start Date: 10/05/14 Stop Date: 10/13/14 Status: Discontinued Zofran 4 mg, 2 mL, Route: IVP, Drug form: INJ, ONCE, Dosing Weight 106.818, kg, Start d ate: 10/05/14 22:28:00, Stop date: 10/05/14 22:28:00 Notes: (Same as: Zofran) Start Date: 10/05/14 Stop Date: 10/05/14 Status: Completed Results ELECTROLYTES 1 2 3 Most recent to oldest [Reference Range]: 136 mEq/L (10/13/14 3:38 AM) 138 mEq/L (10/10/14 5:24 AM) 137 mEq/L (10/07/14 3:59 AM) Sodium Lvl [135-145 mEq/L] 4.0 mEq/L (10/13/14 3:38 AM) 4.0 mEq/L (10/10/14 5:24 AM) 4.2 mEq/L (10/07/14 3:59 AM) Potassium Lvl [3.5-5.1 mEq/L] 105 mEq/L (10/13/14 3:38 AM) 102 mEq/L (10/10/14 5:24 AM) 101 mEq/L (10/07/14 3:59 AM) Chloride Lvl [95-109 mEq/L] 23 mEq/L *LOW* (10/13/14 3:38 AM) 22 mEq/L *LOW* (10/10/14 5:24 AM) 28 mEq/L (10/07/14 3:59 AM) CO2 [24-32 mEq/L] 12.0 mEq/L (10/13/14 3:38 AM) 18.0 mEq/L (10/10/14 5:24 AM) 12.2 mEq/L (10/07/14 3:59 AM) AGAP [10.0-20.0 mEq/L] CHEM PANEL 1 2 3 Most recent to oldest [Reference Range]: 0.7 mg/dL (10/13/14 3:38 AM) 1.1 mg/dL (10/11/14 7:33 PM) 0.6 mg/dL (10/10/14 5:24 AM) Creatinine Lvl [0.5-1.4 mg/dL] 94 mL/min/1.73m2 1 *NA* (10/13/14 3:38 AM) 54 mL/min/1.73m2 2 *NA* (10/11/14 7:33 PM) 99 mL/min/1.73m2 3 *NA* (10/10/14 5:24 AM) eGFR 8 mg/dL (10/13/14 3:38 AM) 9 mg/dL (10/10/14 5:24 AM) 12 mg/dL (10/07/14 3:59 AM) BUN [7-22 mg/dL] 21 (10/05/14 8:25 PM) B/C Ratio [6-25] 196 mg/dL 4 *HI* (10/13/14 3:38 AM) 117 mg/dL 5 *HI* (10/10/14 5:24 AM) 303 mg/dL 6 *HI* (10/07/14 3:59 AM) Glucose Lvl [70-99 mg/dL] 7.9 g/dL (10/05/14 8:25 PM) Total Protein [6.4-8.4 g/dL] 3.3 g/dL *LOW* (10/05/14 8:25 PM) Albumin Lvl [3.5-5.0 g/dL] 4.6 g/dL *HI* (10/05/14 8:25 PM) Globulin [2.0-4.0 g/dL] 0.7 (10/05/14 8:25 PM) A/G Ratio [0.7-1.6] 8.5 mg/dL (10/13/14 3:38 AM) 8.5 mg/dL (10/10/14 5:24 AM) 8.4 mg/dL *LOW* (10/07/14 3:59 AM) Calcium Lvl [8.5-10.5 mg/dL] 2.5 mg/dL (10/13/14 3:38 AM) Phosphorus [2.5-4.5 mg/dL] 1.7 mg/dL *LOW* (10/13/14 3:38 AM) Magnesium Lvl [1.8-2.4 mg/dL] 27 unit/L (10/05/14 8:25 PM) ALT [0-65 unit/L] 17 unit/L (10/05/14 8:25 PM) AST [0-37 unit/L] 108 unit/L (10/05/14 8:25 PM) Alk Phos [39-136 unit/L] 0.4 mg/dL (10/05/14 8:25 PM) Bili Total [0.2-1.3 mg/dL] 24 unit/L *LOW* (10/05/14 8:25 PM) Amylase Lvl [25-115 unit/L] 99 unit/L (10/05/14 8:25 PM) Lipase Lvl [73-393 unit/L] 1Result Comment: The [...] be mul tiplied by the estimated BMI. 4Interpretive Data: Adult reference range values reflect the clinical guidelines of the [place] [employer]. 5Interpretive Data: Adult reference range values reflect the clinical guidelines of the [place] [employer]. 6Interpretive Data: Adult reference range values reflect the clinical guidelines of the [place] [employer]. CARDIAC ENZYMES 1 2 3 Most recent to oldest [Reference Range]: 53 unit/L (10/05/14 8:25 PM) Total CK [12-191 unit/L] 0.6 ng/mL (10/05/14 8:25 PM) CK MB [0.5-3.6 ng/mL] 1.1 (10/05/14 8:25 PM) CK MB Index [0.0-2.5] <0.02 ng/mL (10/05/14 8:25 PM) Troponin-I [0.00-0.40 ng/mL] URINE AND STOOL 1 2 3 Most recent to oldest [Reference Range]: Slight *ABN* (10/05/14 8:25 PM) UA Turbidity [Clear] Ltyellow *NA* (10/05/14 8:25 PM) UA Color 6.0 (10/05/14 8:25 PM) UA pH [5.0-8.0] 1.035 *HI* (10/05/14 8:25 PM) UA Spec Grav [<=1.030] 500 mg/dL *ABN* (10/05/14 8:25 PM) UA Glucose [Negative mg/dL] Negative (10/05/14 8:25 PM) UA Blood [Negative] Negative mg/dL *NA* (10/05/14 8:25 PM) UA Ketones [Negative mg/dL] Negative mg/dL (10/05/14 8:25 PM) UA Protein [Negative mg/dL] <=1.0 mg/dL *NA* (10/05/14 8:25 PM) UA Urobilinogen [0.1-1.0 mg/dL] Negative *NA* (10/05/14 8:25 PM) UA Bili [Negative] Negative (10/05/14 8:25 PM) UA Leuk Est [Negative] Negative (10/05/14 8:25 PM) UA Nitrite [Negative] 2 /HPF (10/05/14 8:25 PM) UA WBC [0-5 /HPF] 3 /HPF *HI* (10/05/14 8:25 PM) UA RBC [0-2 /HPF] Occasional /HPF *NA* (10/05/14 8:25 PM) UA Bacteria [None Seen /HPF] Occasional /LPF *NA* (10/05/14 8:25 PM) UA Sq Epi [Few /LPF] Few /LPF *NA* (10/05/14 8:25 PM) UA Mucus [None Seen /LPF] HEMATOLOGY 1 2 3 Most recent to oldest [Reference Range]: 6.8 K/CMM (10/13/14 3:38 AM) 9.6 K/CMM (10/12/14 4:58 AM) 4.3 K/CMM (10/10/14 5:24 AM) WBC [3.7-10.4 K/CMM] 4.28 M/CMM (10/13/14 3:38 AM) 4.25 M/CMM (10/12/14 4:58 AM) 4.39 M/CMM (10/10/14 5:24 AM) RBC [4.20-5.40 M/CMM] 12.8 g/dL (10/13/14 3:38 AM) 12.7 g/dL (10/12/14 4:58 AM) 13.1 g/dL (10/10/14 5:24 AM) Hgb [12.0-16.0 g/dL] 38.6 % (10/13/14 3:38 AM) 38.4 % (10/12/14 4:58 AM) 39.6 % (10/10/14 5:24 AM) Hct [36.0-48.0 %] 90.3 fL (10/13/14 3:38 AM) 90.5 fL (10/12/14 4:58 AM) 90.2 fL (10/10/14 5:24 AM) MCV [80.0-98.0 fL] 29.9 pg (10/13/14 3:38 AM) 30.0 pg (10/12/14 4:58 AM) 29.9 pg (10/10/14 5:24 AM) MCH [27.0-31.0 pg] 33.1 g/dL (10/13/14 3:38 AM) 33.2 g/dL (10/12/14 4:58 AM) 33.2 g/dL (10/10/14 5:24 AM) MCHC [32.0-36.0 g/dL] 13.3 % (10/13/14 3:38 AM) 13.0 % (10/12/14 4:58 AM) 13.0 % (10/10/14 5:24 AM) RDW [11.5-14.5 %] 224 K/CMM (10/13/14 3:38 AM) 209 K/CMM (10/12/14 4:58 AM) 194 K/CMM (10/11/14 7:33 PM) Platelet [133-450 K/CMM] 10.2 fL (10/13/14 3:38 AM) 10.5 fL *HI* (10/12/14 4:58 AM) 10.2 fL (10/10/14 5:24 AM) MPV [7.4-10.4 fL] 57.1 % (10/13/14 3:38 AM) 83.2 % *HI* (10/12/14 4:58 AM) 47.4 % (10/10/14 5:24 AM) Segs [45.0-75.0 %] 27.4 % (10/13/14 3:38 AM) 7.9 % *LOW* (10/12/14 4:58 AM) 35.4 % (10/10/14 5:24 AM) Lymphocytes [20.0-40.0 %] 13.0 % *HI* (10/13/14 3:38 AM) 8.6 % (10/12/14 4:58 AM) 12.6 % *HI* (10/10/14 5:24 AM) Monocytes [2.0-12.0 %] 1.8 % (10/13/14 3:38 AM) 3.8 % (10/10/14 5:24 AM) 4.4 % *HI* (10/07/14 3:59 AM) Eosinophils [0.0-4.0 %] 0.7 % (10/13/14 3:38 AM) 0.3 % (10/12/14 4:58 AM) 0.8 % (10/10/14 5:24 AM) Basophils [0.0-1.0 %] 3.9 K/CMM (10/13/14 3:38 AM) 8.0 K/CMM (10/12/14 4:58 AM) 2.0 K/CMM (10/10/14 5:24 AM) Segs-Bands # [1.5-8.1 K/CMM] 1.9 K/CMM (10/13/14 3:38 AM) 0.8 K/CMM *LOW* (10/12/14 4:58 AM) 1.5 K/CMM (10/10/14 5:24 AM) Lymphocytes # [1.0-5.5 K/CMM] 0.9 K/CMM *HI* (10/13/14 3:38 AM) 0.8 K/CMM (10/12/14 4:58 AM) 0.5 K/CMM (10/10/14 5:24 AM) Monocytes # [0.0-0.8 K/CMM] 0.1 K/CMM (10/13/14 3:38 AM) 0.2 K/CMM (10/10/14 5:24 AM) 0.2 K/CMM (10/07/14 3:59 AM) Eosinophils # [0.0-0.5 K/CMM] 0.0 K/CMM (10/10/14 5:24 AM) Basophils # [0.0-0.2 K/CMM] 13.6 seconds (10/06/14 4:48 AM) PT [12.0-14.7 seconds] 1.04 7 (10/06/14 4:48 AM) INR [0.85-1.17] 28.2 seconds 8 (10/06/14 4:48 AM) PTT [22.9-35.8 seconds] 7Interpretive Data: RECOMMENDED RANGES FOR PROTIME INR: 2.0-3.0 for most medical and surgical thromboembolic states. 2.5-3.5 for artificial heart valves and recurrent embolism. INR SHOULD BE USED ONLY FOR PATIENTS ON STABLE ANTICOAGULANT THERAPY. 8Interpretive Data: Heparin Therapeutic Range: 57 - 92 Seconds Medications Administered During Your Visit No data available for this section Immunizations No data available for this section Social History Social History Type Response Substance Abuse Use: None Alcohol Use: Never Smoking Status Never smoker, Exposure to Tobacco Smoke None, Cigarette Smoking Last 365 Days No, Reg Smoking Cessation Counseling No Assessment and Plan Extracted from: Title: Clinical Document Author: Dk Poole MD Date: 10/13/14 Progress Note - Daily [facility] Completed: Sep, 08:41 by Dk Poole MD RM: 136 - 1D, SE [id number] SAMPSON [id number] (: 1955) F Attending: Keven Pascual: Service: Internal Medicine Reason for Admission: UPPER GI BLEED Working DRG: G.I. hemorrhage w CC Code status: None Specified=FULL CODECurrent diet: Isolation: None Documented Allergies: Januvia, metformin, influenza virus vaccine, inactivated(Influenza virus vaccine) SUBJECTIVE Preoperative epigastric abdominal pain resolved, per patient. Isidro clear liquids. OBJECTIVE Abd soft 24hr Labs 10/13 0639 Glucose PLZ189 H 10/13 0338 Glucose Yil310 H BUN8 Creatinine Lvl0.7 Sodium Pft803 Potassium Lvl4.0 Chloride Oha237 CO223 L AGAP12.0 Calcium Lvl8.5 eGFR94 Magnesium Lvl1.7 L Phosphorus2.5 WBC6.8 RBC4.28 Hgb12.8 Hct38.6 MCV90.3 MCH29.9 MCHC33.1 RDW13.3 Bdpykpaj558 MPV10.2 Segs57.1 Xlhqwertu89.0 H Kzrygzcrcas90.4 Eosinophils1.8 Basophils0.7 Segs-Bands #3.9 Lymphocytes #1.9 Monocytes #0.9 H Eosinophils #0.1 10/12 2208 Glucose DJZ257 H 10/12 1636 Glucose QKD174 H 10/12 1110 Glucose FVY019 H Olvera still necessary (Yes/No): Line still necessary (Yes/No): VitalsTmp(F)[id number] 10/13 08:07 1596 21% 10/13 07:4097.419738/7316------ 10/13 04:0998.872055/6716------ 10/13 00:0097.672157/7018------ 10/12 20:40 2096--- 24 Hr Tmax: 98.6F (37.00c) at 10/12 20:00Vital Signs are the last 5 in the past 48 hours. DateWt(kg)Wt(lb)Ht(cm)Ht(in)Method .95 241.90Measured 10/05 (initial)106.82 235.00Measured .10 65.00Stated I&ORecordInOutBal 09/2624hr Tot 1874 95 1779 09/2524hr Tot 3606 420 3186 Medications (27) Active Scheduled Meds (4): 10/12/14 enoxaparin 30 mg SUB-Q [id number] 10/12/14 insulin detemir (Levemir FlexPen) 10 unit SUB-Q Bedtime 10/07/14 oxybutynin 10 mg PO Daily 10/13/14 pantoprazole (Protonix) 40 mg PO Before Dinner Unscheduled Meds: None PRN Meds (21): 10/06/14 Dextrose 50% in Water IV (Dextrose 50% Syringe) 12.5 gm IVP PRN 10/06/14 Dextrose 50% in Water IV (Dextrose 50% Syringe) 25 gm IVP PRN 10/12/14 acetaminophen-codeine 15 mL PO PRN 10/12/14 acetaminophen-hydrocodone ([place] 7.5/325 oral tablet) 1 tab PO Q4H 10/06/14 flumazenil 0.2 mg IVP PRN 10/06/14 flumazenil 0.1 mg IVP Q5Min 10/06/14 glucagon 1 mg IM PRN 10/12/14 hydrALAZINE 10 mg IV Q6H 10/06/14 insulin aspart 3 unit SUB-Q TID-Before Meals 10/06/14 insulin aspart 6 unit SUB-Q TID-Before Meals 10/06/14 insulin aspart 9 unit SUB-Q TID-Before Meals 10/06/14 insulin aspart 12 unit SUB-Q TID-Before Meals 10/06/14 insulin aspart 15 unit SUB-Q TID-Before Meals 10/06/14 insulin aspart 1 unit SUB-Q Bedtime 10/06/14 insulin aspart 2 unit SUB-Q Bedtime 10/06/14 insulin aspart 3 unit SUB-Q Bedtime 10/06/14 insulin aspart 4 unit SUB-Q Bedtime 10/06/14 naloxone 0.1 mg IVP Q2MIN 10/06/14 nitroglycerin (nitroglycerin 0.4 mg sublingual tablet) 0.4 mg SL Q5Min 10/05/14 ondansetron (Zofran) 4 mg IV Q8H 10/05/14 sodium chloride (Saline Flush 0.9%) 10 ml IVP PRN One Time Meds (1): 10/12/14 (Completed) diphenhydrAMINE (Benadryl) 12.5 mg IVP ONCE Continuous Infusions (1): 10/05/14 LVP solution with potassium 1,000 mL (1/2NS + KCL 20mEq/L 1000ml (Premix) 1,000 mL) 1,000 mL 125 ml/hr ASSESSMENT & EXAM PLAN & TREATMENT Adv to full liquids. Pt to remain on full liquids for 2 weeks. Follow up w me in 1-2 weeks. May dc home later if isidro full liquid diet. DIAGNOSES & PROBLEMS Ready for Discharge (Yes/No)? TEACHING ATTESTATION Extracted from: Title: Clinical Document Author: Marques Fisher MD Date: 10/06/14 GI Consult Requesting Physician: Ankur CC/Reason for Consultation: hematemesis HISTORY OF PRESENT ILLNESS: 59 year old woman with 2 day complaint of severe nausea and vomiting, followed by hematemesis. Patient reports she had similar symptoms with metformin therefore she was started on Januvia. Initially emesis was non-bloody, then became coffee grounds and eventually bright red. She reports prior endoscopy for similar symptoms which showed "an ulcer". No prior colonoscopy. Review of Systems: (-)=Negative,(+)=Positive 1) Const: (-) fever, (+) weight change 2) Skin: (-) rash, (-) bleeding 3) HEENT: (-) difficulty swallowing, (-) swelling 4) Eyes: (-) vision changes, (-) bleeding 5) Neuro: (-) weakness, (-) headaches 6) Resp: (-) dyspnea on exertion, (-) cough 7) Cardio: (-) chest pain, (-) orthopnea 8) GI: (-) blood in stool, (-) reflux 9) : (-) dysuria, (-) bloody discharge 10) Endo: (-) heat intolerance, (-) cold intolerance PMH: diabetes, htn, gerd FAMHX: no crc SOCHX: no tobacco, no alcohol MEDS: Medication List Active Medications Ordered acetaminophen: 650 mg, 2 tab, PO, Q6H, PRN: Pain. atropine: 0.5 mg, 5 mL, IVP, ONCE, PRN: Bradycardia. Dextrose 50% in Water IV: 12.5 gm, 25 mL, IVP, PRN, PRN: Blood Glucose Results. Dextrose 50% in Water IV: 25 gm, 50 mL, IVP, PRN, PRN: Blood Glucose Results. glucagon: 1 mg, IM, PRN, PRN: Blood Glucose Results. insulin aspart: 10 unit, 0.1 mL, SUB-Q, TID-Meals. insulin aspart: 3 unit, 0.03 mL, SUB-Q, TID-Before Meals, PRN: Blood Glucose Results. insulin aspart: 6 unit, 0.06 mL, SUB-Q, TID-Before Meals, PRN: Blood Glucose Results. insulin aspart: 9 unit, 0.09 mL, SUB-Q, TID-Before Meals, PRN: Blood Glucose Results. insulin aspart: 12 unit, 0.12 mL, SUB-Q, TID-Before Meals, PRN: Blood Glucose Results. insulin aspart: 15 unit, 0.15 mL, SUB-Q, TID-Before Meals, PRN: Blood Glucose Results. insulin aspart: 1 unit, 0.01 mL, SUB-Q, Bedtime, PRN: Blood Glucose Results. insulin aspart: 2 unit, 0.02 mL, SUB-Q, Bedtime, PRN: Blood Glucose Results. insulin aspart: 3 unit, 0.03 mL, SUB-Q, Bedtime, PRN: Blood Glucose Results. insulin aspart: 4 unit, 0.04 mL, SUB-Q, Bedtime, PRN: Blood Glucose Results. insulin detemir: 60 unit, 0.6 mL, SUB-Q, Bedtime. LVP solution with potassium 1,000 mL: 125 ml/hr, IV, Stop: 11/04/14 23:20:00. morphine Sulfate: 2 mg, 1 mL, IVP, Q4H, PRN: Pain. nitroglycerin: 0.4 mg, 1 tab, SL, Q5Min, PRN: Chest Pain. ondansetron: 4 mg, 2 mL, IV, Q8H, PRN: Nausea. oxybutynin: 10 mg, 2 tab, PO, Daily. pantoprazole 80 mg + Sodium Chloride 0.9% IV 100 mL: 10 ml/hr, IV, Stop: 10/08/14 23:20:00. sodium chloride: 10 ml, IVP, PRN, PRN: Line Flush. Sodium Chloride 0.9% IV: 500 mL, IV, ONCE. Physical Exam: Vitals and Temp: VitalsTmp(F)StbahCNKMFcF3UMO2 10/06 11:5298.119891/1030782--- 10/06 07:2898.231046/8316------ 10/06 04:1598.296971/7516------ 10/06 00:31----68 10/05 23:4598.161216/8316------ 24 Hr Tmax: 98.6F (37.00c) at 10/06 11:52Vital Signs are the last 5 in the past 48 hours. 1) General: No acute distress, awake, alert and oriented times 3. 2) HEENT: Extraocular movements intact; oropharynx clear; moist mucous membranes 3) Neck: no JVD, full range of motion 4) Lungs: Good respiratory effort, symmetrical palpable rise of chest 5) Cardio: Regular rate, good palpable pulses 6) Abdomen: Soft, non-tender with bowel sounds, spleen not palpable 7) Extremities: no clubbing, cyanosis, +edema 8) Skin: no rashes, good palpable turgor 9) Musc: good upper extremity ROM, symmetrical strength 10) Psyc: good affect, appropriate insight MEDICAL DECISION MAKING REVIEWED DATA: Labs (Last four charted values) WBC 4.1(OCT 06)4.4(OCT 05) Hgb 12.2(OCT 06)L 11.9(OCT 06)12.8(OCT 05) Hct 36.9(OCT 06)L 35.9(OCT 06)40.4(OCT 05) Plt 159(OCT 06)183(OCT 05) Na 137(OCT 06)136(OCT 05) K 4.0(OCT 06)3.8(OCT 05) CO2 30(OCT 06)32(OCT 05) Cl 102(OCT 06)99(OCT 05) Cr 0.7(OCT 06)0.8(OCT 05) BUN 18(OCT 06)17(OCT 05) Glucose Random H 322(OCT 06)H 393(OCT 05) Ca L 7.8(OCT 06)8.6(OCT 05) PT 13.6(OCT 06) INR 1.04(OCT 06) PTT 28.2(OCT 06) Troponin <0.02(OCT 05) CK MB 0.6(OCT 05) Total CK 53(OCT 05) ASSESSMENT/PLAN: Hematemesis Nausea/vomiting Suspected GI Bleeding Acute post hemrrhagic anemia, mild Screening for colon cancer - egd today - acid suppressive therapy - if nausea/vomiting persist, consider gastric emptying study - colonoscopy as outpatient for crc screening - further recommendations based on egd findings
--- OUTSIDE RECORDS SUMMARY | 2019-03-23 18:37 | XMS REPORT | Summary of Care ---
Author Author [facility] Organization [facility] Address Unknown Phone Unavailable Encounter KENROY Aguayo(JOVANNY) [id number] Date(s): 06/05/15 - 06/06/15 [facility] [address] [place] [address]- Discharge Diagnosis: Multiple contusions Discharge Diagnosis: Fall from standing Discharge Disposition: Home Attending Physician: Steven Monteiro MD Vital Signs 1 2 3 Most recent to oldest [Reference Range]: 165.1 cm (06/05/15 11:48 PM) Height 1 2 3 Most recent to oldest [Reference Range]: 98.1 DegF (06/06/15 5:05 AM) 98 DegF (06/05/15 11:48 PM) Temperature Oral [96.4-99.1 DegF] 1 2 3 Most recent to oldest [Reference Range]: 119/72 mmHg (06/06/15 5:05 AM) 125/67 mmHg (06/06/15 3:37 AM) 121/75 mmHg (06/05/15 11:48 PM) Blood Pressure [90-140/60-90 mmHg] 1 2 3 Most recent to oldest [Reference Range]: 18 BRMIN (06/06/15 5:05 AM) 18 BRMIN (06/05/15 11:48 PM) Respiratory Rate [14-20 BRMIN] 1 2 3 Most recent to oldest [Reference Range]: 86 bpm (06/06/15 5:05 AM) 91 bpm (06/05/15 11:48 PM) Peripheral Pulse Rate [60-100 bpm] 1 2 3 Most recent to oldest [Reference Range]: 109.091 kg (06/05/15 11:48 PM) Weight 1 2 3 Most recent to oldest [Reference Range]: 40.02 m2 (06/05/15 11:48 PM) Body Mass Index Problem List Condition Effective Dates Status Health Status Informant Catheterization(Conf Resolved irmed)1 Degenerative disc Resolved disease(Confirmed) DM - Diabetes Active mellitus(Confirmed) Gastroesophageal Active reflux disease(Confirmed) GERD Active (gastroesophageal reflux disease)(Confirmed) GI bleed(Confirmed) Active HTN - Active Hypertension(Confirm ed) Hyperglycemia(Confir Active med) MRSA(Confirmed)2, 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 4Problem added by Discern Expert. Allergies, Adverse Reactions, Alerts Substance Reaction Severity Status influenza virus vaccine, Influenza virus vaccine Active inactivated Januvia Active metformin Active Medications Ultram 50 mg oral tablet 50 mg=1 tab, PO, Q4H, PRN pain, X 3 day, # 20 tab, 0 Refill(s) Start Date: 06/06/15 Stop Date: 06/09/15 Status: Ordered Results No data available for this section Immunizations No data available for this section Procedures Procedure Date Related Diagnosis Body Site [...]
--- OUTSIDE RECORDS SUMMARY | 2019-03-23 18:37 | XMS REPORT | Summary of Care ---
Author Organization Unknown Address Unknown Phone Unavailable Encounter KENROY Aguayo(JOVANNY) [id number] Date(s): 06/09/14 - 06/10/14 [facility] [address] Discharge Diagnosis: Thigh abscess Discharge Disposition: Home Physician Attending: Rafael Cummins MD Reason for Visit ABSCESSES Vital Signs Most recent to 1 2 oldest [Reference Range]: Temperature Oral 98.8 DegF 98.5 DegF [96.4-99.1 DegF] (06/10/14 1:50 AM) (06/09/14 9:49 PM) Systolic Blood 128 mmHg 133 mmHg Pressure [90-140 (06/10/14 1:50 AM) (06/09/14 9:49 PM) mmHg] Diastolic Blood 84 mmHg 76 mmHg Pressure [60-90 (06/10/14 1:50 AM) (06/09/14 9:49 PM) mmHg] Respiratory Rate 20 BRMIN 20 BRMIN [14-20 BRMIN] (06/10/14 1:50 AM) (06/09/14 9:49 PM) Peripheral Pulse 89 bpm 97 bpm Rate [60-100 bpm] (06/10/14 1:50 AM) (06/09/14 9:49 PM) Weight 106.818 kg (06/09/14 9:49 PM) Problem List Condition Effective Dates Status Health Status Informant Catheterization(Conf Resolved irmed)1 Degenerative disc Resolved disease(Confirmed) DM - Diabetes Active mellitus(Confirmed) HTN - Active Hypertension(Confirm ed) Hyperglycemia(Confir Active med) Syncope(Confirmed) 05/11/09 Resolved Thyroid Resolved disorder(Confirmed) UTI - Urinary tract Active infection(Confirmed) 1heart Allergies, Adverse Reactions, Alerts Substance Reaction Severity Status influenza virus vaccine, Influenza virus vaccine Active inactivated metformin Active Medications Bactrim DS oral tablet 1 tab, PO, BID, # 14 tab, 0 Refill(s) Start Date: 06/10/14 Stop Date: 06/17/14 Status: Ordered [place] 5/325 oral tablet 2 tab, Route: PO, Drug Form: TAB, Dosing Weight 106.818, kg, ONCE, Start date: 0 06/10/14 0:24:00, Stop date: 06/10/14 0:24:00 Notes: (Same as: [place] 325/5) Do not exceed 4gm/day of acetaminophen. Start Date: 06/10/14 Stop Date: 06/10/14 Status: Completed [place] 5/325 oral tablet 1-2 tab, PO, Q4-6H, Pain, # 15 tab, 0 Refill(s) Start Date: 06/10/14 Stop Date: 06/15/14 Status: Ordered Medications Administered During Your Visit No data available for this section Immunizations No data available for this section
--- OUTSIDE RECORDS SUMMARY | 2019-03-23 18:37 | XMS REPORT | Summary of Care ---
Author Organization Unknown Address Unknown Phone Unavailable Encounter HQ Olivier(JOVANNY) [id number] Date(s): 05/28/15 - 05/28/15 [facility] [address] [place] [address]- [phone] Discharge Diagnosis: UTI (lower urinary tract infection) Discharge Diagnosis: Abscess Discharge Disposition: Home Physician Attending: Chelsey Ojeda DO Vital Signs Most recent to 1 2 oldest [Reference Range]: Height 165.1 cm (05/28/15 2:34 PM) Temperature Oral 97.5 DegF 98.2 DegF [96.4-99.1 DegF] (05/28/15 7:23 PM) (05/28/15 2:34 PM) Blood Pressure 135/63 mmHg 129/86 mmHg [90-140/60-90 mmHg] (05/28/15 7:23 PM) (05/28/15 2:34 PM) Respiratory Rate 20 BRMIN 18 BRMIN [14-20 BRMIN] (05/28/15 7:23 PM) (05/28/15 2:34 PM) Peripheral Pulse 80 bpm 100 bpm Rate [60-100 bpm] (05/28/15 7:23 PM) (05/28/15 2:34 PM) Weight 106.818 kg (05/28/15 2:34 PM) Body Mass Index 39.19 m2 (05/28/15 2:34 PM) Problem List Condition Effective Dates Status [...] Active inactivated Januvia Active metformin Active Medications Bactrim DS 800 mg- 160 mg oral tablet 1 tab, PO, BID, # 14 tab, 0 Refill(s) Start Date: 05/28/15 Stop Date: 06/04/15 Status: Ordered Results ELECTROLYTES Most recent to 1 oldest [Reference Range]: Sodium Lvl [135-145 134 mEq/L mEq/L] *LOW* (05/28/15 6:15 PM) Potassium Lvl 4.1 mEq/L [3.5-5.1 mEq/L] (05/28/15 6:15 PM) Chloride Lvl [95-109 97 mEq/L mEq/L] (05/28/15 6:15 PM) CO2 [24-32 mEq/L] 29 mEq/L (05/28/15 6:15 PM) AGAP [10.0-20.0 12.1 mEq/L mEq/L] (05/28/15 6:15 PM) CHEM PANEL Most recent to 1 oldest [Reference Range]: Creatinine Lvl 0.8 mg/dL [0.5-1.4 mg/dL] (05/28/15 6:15 PM) eGFR 80 mL/min/1.73m2 1 *NA* (05/28/15 6:15 PM) BUN [7-22 mg/dL] 22 mg/dL (05/28/15 6:15 PM) B/C Ratio [6-25] 28 *HI* (05/28/15 6:15 PM) Glucose Lvl [70-99 295 mg/dL 2 mg/dL] *HI* (05/28/15 6:15 PM) Total Protein 8.9 g/dL [6.4-8.4 g/dL] *HI* (05/28/15 6:15 PM) Albumin Lvl [3.5-5.0 3.2 g/dL g/dL] *LOW* (05/28/15 6:15 PM) Globulin [2.0-4.0 5.7 g/dL g/dL] *HI* (05/28/15 6:15 PM) A/G Ratio [0.7-1.6] 0.6 *LOW* (05/28/15 6:15 PM) Calcium Lvl 8.4 mg/dL [8.5-10.5 mg/dL] *LOW* (05/28/15 6:15 PM) ALT [0-65 unit/L] 35 unit/L (05/28/15 6:15 PM) AST [0-37 unit/L] 23 unit/L (05/28/15 6:15 PM) Alk Phos [39-136 142 unit/L unit/L] *HI* (05/28/15 6:15 PM) Bili Total [0.2-1.3 0.2 mg/dL mg/dL] (05/28/15 6:15 PM) 1Result Comment: The eGFR is calculated [...] values reflect the clinical guidelines of the [place] [employer]. URINE AND STOOL Most recent to 1 oldest [Reference Range]: UA Turbidity [Clear] Marked *ABN* (05/28/15 6:15 PM) UA Color Ltyellow *NA* (05/28/15 6:15 PM) UA pH [5.0-8.0] 5.0 (05/28/15 6:15 PM) UA Spec Grav 1.036 [<=1.030] *HI* (05/28/15 6:15 PM) UA Glucose [Negative 500 mg/dL mg/dL] *ABN* (05/28/15 6:15 PM) UA Blood [Negative] Small *ABN* (05/28/15 6:15 PM) UA Ketones [Negative Negative mg/dL mg/dL] *NA* (05/28/15 6:15 PM) UA Protein [Negative 30 mg/dL mg/dL] *ABN* (05/28/15 6:15 PM) UA Urobilinogen <=1.0 mg/dL [0.1-1.0 mg/dL] *NA* (05/28/15 6:15 PM) UA Bili [Negative] Negative *NA* (05/28/15 6:15 PM) UA Leuk Est Small [Negative] *ABN* (05/28/15 6:15 PM) UA Nitrite Negative [Negative] (05/28/15 6:15 PM) UA WBC [0-5 /HPF] 5 /HPF (05/28/15 6:15 PM) UA RBC [0-2 /HPF] 4 /HPF *HI* (05/28/15 6:15 PM) UA Bacteria [None Many /HPF Seen /HPF] *ABN* (05/28/15 6:15 PM) UA Sq Epi [Few /LPF] Few /LPF *NA* (05/28/15 6:15 PM) UA Hyal Cast [0-2 2 /LPF /LPF] (05/28/15 6:15 PM) UA Mucus [None Seen Few /LPF /LPF] *NA* (05/28/15 6:15 PM) HEMATOLOGY Most recent to 1 oldest [Reference Range]: WBC [3.7-10.4 K/CMM] 6.7 K/CMM (05/28/15 6:15 PM) RBC [4.20-5.40 4.69 M/CMM M/CMM] (05/28/15 6:15 PM) Hgb [12.0-16.0 g/dL] 14.6 g/dL (05/28/15 6:15 PM) Hct [36.0-48.0 %] 43.3 % (05/28/15 6:15 PM) MCV [80.0-98.0 fL] 92.4 fL (05/28/15 6:15 PM) MCH [27.0-31.0 pg] 31.2 pg *HI* (05/28/15 6:15 PM) MCHC [32.0-36.0 33.7 g/dL g/dL] (05/28/15 6:15 PM) RDW [11.5-14.5 %] 13.5 % (05/28/15 6:15 PM) Platelet [133-450 212 K/CMM K/CMM] (05/28/15 6:15 PM) MPV [7.4-10.4 fL] 10.3 fL (05/28/15 6:15 PM) Segs [45.0-75.0 %] 53.0 % (05/28/15 6:15 PM) Lymphocytes 32.6 % [20.0-40.0 %] (05/28/15 6:15 PM) Monocytes [2.0-12.0 11.0 % %] (05/28/15 6:15 PM) Eosinophils [0.0-4.0 2.4 % %] (05/28/15 6:15 PM) Basophils [0.0-1.0 1.0 % %] (05/28/15 6:15 PM) Segs-Bands # 3.5 K/CMM [1.5-8.1 K/CMM] (05/28/15 6:15 PM) Lymphocytes # 2.2 K/CMM [1.0-5.5 K/CMM] (05/28/15 6:15 PM) Monocytes # [0.0-0.8 0.7 K/CMM K/CMM] (05/28/15 6:15 PM) Eosinophils # 0.2 K/CMM [0.0-0.5 K/CMM] (05/28/15 6:15 PM) Basophils # [0.0-0.2 0.1 K/CMM K/CMM] (05/28/15 6:15 PM) Immunizations No data available for this section [...]
--- OUTSIDE RECORDS SUMMARY | 2019-03-23 18:37 | XMS REPORT | Summary of Care ---
Author Organization Unknown Address Unknown Phone Unavailable Encounter HQ Olivier(JOVANNY) [id number] Date(s): 08/11/14 - 08/11/14 [facility] [address] Discharge Diagnosis: Acute foot pain Discharge Diagnosis: Accidental fall Discharge Diagnosis: Acute chest wall pain Discharge Diagnosis: Acute knee pain Discharge Disposition: Home Physician Attending: Varinder Connolly MD Reason for Visit FALL Vital Signs Most recent to 1 2 oldest [Reference Range]: Height 165.1 cm (08/11/14 6:59 AM) Temperature Oral 98 DegF 97.5 DegF [96.4-99.1 DegF] (08/11/14 8:41 AM) (08/11/14 6:59 AM) Systolic Blood 145 mmHg 148 mmHg Pressure [90-140 *HI* *HI* mmHg] (08/11/14 8:41 AM) (08/11/14 6:59 AM) Diastolic Blood 92 mmHg 94 mmHg Pressure [60-90 *HI* *HI* mmHg] (08/11/14 8:41 AM) (08/11/14 6:59 AM) Respiratory Rate 16 BRMIN 18 BRMIN [14-20 BRMIN] (08/11/14 8:41 AM) (08/11/14 6:59 AM) Peripheral Pulse 87 bpm 88 bpm Rate [60-100 bpm] (08/11/14 8:41 AM) (08/11/14 6:59 AM) Weight 109.091 kg (08/11/14 6:59 AM) Body Mass Index 40.02 m2 (08/11/14 6:59 AM) Problem List Condition Effective Dates Status Health Status Informant Catheterization(Conf Resolved irmed)1 Degenerative disc Resolved disease(Confirmed) DM - Diabetes Active mellitus(Confirmed) HTN - Active Hypertension(Confirm ed) Hyperglycemia(Confir Active med) Syncope(Confirmed) 05/11/09 Resolved Thyroid Resolved disorder(Confirmed) UTI - Urinary tract Active infection(Confirmed) 1heart Allergies, Adverse Reactions, Alerts Substance Reaction Severity Status influenza virus vaccine, Influenza virus vaccine Active inactivated metformin Active Medications Ultram 50 mg oral tablet 1 - 2 tabs, PO, Q4-6H, .(Type PRN Reason Here...), # 30 tab, 0 Refill(s) Start Date: 08/11/14 Status: Ordered Medications Administered During Your Visit No data available for this section Immunizations No data available for this section Social History Social History Type Response Smoking Status Never smoker, Exposure to Tobacco Smoke None, Cigarette Smoking Last 365 Days No, Reg Smoking Cessation Counseling No
--- OUTSIDE RECORDS SUMMARY | 2019-03-23 18:38 | XMS REPORT | Summary of Care ---
Author Organization Unknown Address Unknown Phone Unavailable Encounter HQ Olivier(JOVANNY) [id number] Date(s): 04/26/15 - 04/27/15 [facility] [address] [place] [address]- Discharge Diagnosis: Abdominal wall abscess Discharge Diagnosis: Acute Hyperglycemia Discharge Disposition: Home Physician Attending: Tami Alcantara MD Vital Signs 1 2 3 Most recent to oldest [Reference Range]: 165.1 cm (04/26/15 10:32 PM) Height 98.4 DegF (04/27/15 7:27 AM) 98.0 DegF (04/26/15 10:32 PM) Temperature Oral [96.4-99.1 DegF] 118/60 mmHg (04/27/15 7:27 AM) 146/86 mmHg *HI* (04/27/15 2:30 AM) 144/76 mmHg *HI* (04/26/15 10:32 PM) Blood Pressure [90-140/60-90 mmHg] 16 BRMIN (04/27/15 7:27 AM) 18 BRMIN (04/27/15 2:30 AM) 18 BRMIN (04/26/15 10:32 PM) Respiratory Rate [14-20 BRMIN] 89 bpm (04/27/15 7:27 AM) 86 bpm (04/27/15 2:30 AM) 88 bpm (04/26/15 10:32 PM) Peripheral Pulse Rate [60-100 bpm] 109.091 kg (04/26/15 10:32 PM) Weight 40.02 m2 (04/26/15 10:32 PM) Body Mass Index Problem List Condition [...] Januvia Active metformin Active Medications Bactrim DS oral tablet 1 tab, PO, BID, X 7 day, # 14 tab, 0 Refill(s) Start Date: 04/27/15 Stop Date: 05/04/15 Status: Ordered Insulin regular 8 unit, 0.08 mL, Route: IVP, Drug form: INJ, ONCE, Dosing Weight 109.091, kg, Pr iority: STAT, Start date: 04/27/15 4:36:00, Stop date: 04/27/15 4:36:00 Notes: (Same as: Humulin R and NovoLIN R) (Do not shake) Start Date: 04/27/15 Stop Date: 04/27/15 Status: Completed Insulin regular 8 unit, Route: IVP, ONCE, Dosing Weight 109.091, kg, Priority: STAT, Start date: 04/27/15 6:49:00, Stop date: 04/27/15 6:49:00 Start Date: 04/27/15 Stop Date: 04/27/15 Status: Completed Keflex 500 mg oral capsule 500 mg=1 cap, PO, QID, X 7 day, # 28 cap, 0 Refill(s) Start Date: 04/27/15 Stop Date: 05/04/15 Status: Ordered Sodium Chloride 0.9% (Bolus) IV 1,000 mL, 1,000 ml/hr, Infuse Over: 1 Hour, Route: IV, ONCE, Priority: STAT, Dos ing Weight 109.091 kg, Start date: 04/27/15 2:42:00, Duration: 1 doses or times, Stop date: 04/27/15 2:42:00 Start Date: 04/27/15 Stop Date: 04/27/15 Status: Completed Sodium Chloride 0.9% (Bolus) IV 500 mL, 500 ml/hr, Infuse Over: 1 Hour, Route: IV, ONCE, Priority: STAT, Dosing Weight 109.091 kg, Start date: 04/27/15 6:47:00, Duration: 1 doses or times, Sto p date: 04/27/15 6:47:00 Start Date: 04/27/15 Stop Date: 04/27/15 Status: Completed tramadol 50 mg oral tablet 50 mg=1 tab, PO, Q6H, PRN Pain, X 7 day, # 25 tab, 0 Refill(s) Start Date: 04/27/15 Stop Date: 05/04/15 Status: Ordered tramadol 50 mg oral tablet 50 mg, Route: PO, Drug form: TAB, ONCE, Dosing Weight 109.091, kg, Priority: STA T, Start date: 04/27/15 6:53:00, Stop date: 04/27/15 6:53:00 Start Date: 04/27/15 Stop Date: 04/27/15 Status: Completed Results ELECTROLYTES Most recent to 1 oldest [Reference Range]: Sodium Lvl [135-145 135 mEq/L mEq/L] (04/27/15 3:43 AM) Potassium Lvl 4.0 mEq/L [3.5-5.1 mEq/L] (04/27/15 3:43 AM) Chloride Lvl [95-109 98 mEq/L mEq/L] (04/27/15 3:43 AM) CO2 [24-32 mEq/L] 30 mEq/L (04/27/15 3:43 AM) AGAP [10.0-20.0 11.0 mEq/L mEq/L] (04/27/15 3:43 AM) CHEM PANEL Most recent to 1 oldest [Reference Range]: Creatinine Lvl 1.0 mg/dL [0.5-1.4 mg/dL] (04/27/15 3:43 AM) eGFR 61 mL/min/1.73m2 1 *NA* (04/27/15 3:43 AM) BUN [7-22 mg/dL] 21 mg/dL (04/27/15 3:43 AM) B/C Ratio [6-25] 21 (04/27/15 3:43 AM) Glucose Lvl [70-99 491 mg/dL 2, 3 mg/dL] *CRIT* (04/27/15 3:43 AM) Total Protein 7.5 g/dL [6.4-8.4 g/dL] (04/27/15 3:43 AM) Albumin Lvl [3.5-5.0 2.7 g/dL g/dL] *LOW* (04/27/15 3:43 AM) Globulin [2.0-4.0 4.8 g/dL g/dL] *HI* (04/27/15 3:43 AM) A/G Ratio [0.7-1.6] 0.6 *LOW* (04/27/15 3:43 AM) Calcium Lvl 8.5 mg/dL [8.5-10.5 mg/dL] (04/27/15 3:43 AM) ALT [0-65 unit/L] 32 unit/L (04/27/15 3:43 AM) AST [0-37 unit/L] 21 unit/L (04/27/15 3:43 AM) Alk Phos [39-136 152 unit/L unit/L] *HI* (04/27/15 3:43 AM) Bili Total [0.2-1.3 0.3 mg/dL mg/dL] (04/27/15 3:43 AM) 1Result Comment: The eGFR is calculated [...] tiplied by the estimated BMI. 2Result Comment: Critical Result(s) called to Keyona Charles at 04/27/2015 04:24 by Cornelius Gutierrez. Read back OK. 3Interpretive Data: Adult reference range values reflect the clinical guidelines of the [place] [employer]. URINE AND STOOL Most recent to 1 oldest [Reference Range]: UA Turbidity [Clear] Clear (04/27/15 3:43 AM) UA Color Ltyellow *NA* (04/27/15 3:43 AM) UA pH [5.0-8.0] 5.0 (04/27/15 3:43 AM) UA Spec Grav 1.031 [<=1.030] *HI* (04/27/15 3:43 AM) UA Glucose [Negative 500 mg/dL mg/dL] *ABN* (04/27/15 3:43 AM) UA Blood [Negative] Negative (04/27/15 3:43 AM) UA Ketones [Negative 20 mg/dL mg/dL] *ABN* (04/27/15 3:43 AM) UA Protein [Negative Negative mg/dL mg/dL] (04/27/15 3:43 AM) UA Urobilinogen <=1.0 mg/dL [0.1-1.0 mg/dL] *NA* (04/27/15 3:43 AM) UA Bili [Negative] Negative *NA* (04/27/15 3:43 AM) UA Leuk Est Trace [Negative] *ABN* (04/27/15 3:43 AM) UA Nitrite Negative [Negative] (04/27/15 3:43 AM) UA WBC [0-5 /HPF] 5 /HPF (04/27/15 3:43 AM) UA RBC [0-2 /HPF] 7 /HPF *HI* (04/27/15 3:43 AM) UA Bacteria [None Occasional /HPF Seen /HPF] *NA* (04/27/15 3:43 AM) UA Sq Epi [Few /LPF] Occasional /LPF *NA* (04/27/15 3:43 AM) UA [place] Yeast [None Many /HPF Seen /HPF] *ABN* (04/27/15 3:43 AM) HEMATOLOGY Most recent to 1 oldest [Reference Range]: WBC [3.7-10.4 K/CMM] 4.4 K/CMM (04/27/15 3:43 AM) RBC [4.20-5.40 4.12 M/CMM M/CMM] *LOW* (04/27/15 3:43 AM) Hgb [12.0-16.0 g/dL] 12.8 g/dL (04/27/15 3:43 AM) Hct [36.0-48.0 %] 38.0 % (04/27/15 3:43 AM) MCV [80.0-98.0 fL] 92.3 fL (04/27/15 3:43 AM) MCH [27.0-31.0 pg] 31.0 pg (04/27/15 3:43 AM) MCHC [32.0-36.0 33.6 g/dL g/dL] (04/27/15 3:43 AM) RDW [11.5-14.5 %] 13.8 % (04/27/15 3:43 AM) Platelet [133-450 167 K/CMM K/CMM] (04/27/15 3:43 AM) MPV [7.4-10.4 fL] 10.6 fL *HI* (04/27/15 3:43 AM) Segs [45.0-75.0 %] 51.6 % (04/27/15 3:43 AM) Lymphocytes 33.1 % [20.0-40.0 %] (04/27/15 3:43 AM) Monocytes [2.0-12.0 11.5 % %] (04/27/15 3:43 AM) Eosinophils [0.0-4.0 2.9 % %] (04/27/15 3:43 AM) Basophils [0.0-1.0 0.9 % %] (04/27/15 3:43 AM) Segs-Bands # 2.2 K/CMM [1.5-8.1 K/CMM] (04/27/15 3:43 AM) Lymphocytes # 1.4 K/CMM [1.0-5.5 K/CMM] (04/27/15 3:43 AM) Monocytes # [0.0-0.8 0.5 K/CMM K/CMM] (04/27/15 3:43 AM) Eosinophils # 0.1 K/CMM [0.0-0.5 K/CMM] (04/27/15 3:43 AM) Immunizations No data available for this section [...]
--- OUTSIDE RECORDS SUMMARY | 2019-03-23 18:38 | XMS REPORT | Summary of Care ---
Author Organization Unknown Address Unknown Phone Unavailable Encounter KENROY Aguayo(JOVANNY) [id number] Date(s): 01/13/15 - 01/14/15 [facility] [address] [place] [address]- Discharge Diagnosis: Toe sprain Discharge Disposition: Home Physician Attending: Geovanna Kearney MD Vital Signs 1 2 3 Most recent to oldest [Reference Range]: 165.1 cm (01/13/15 5:52 PM) Height 98.5 DegF (01/13/15 5:52 PM) Temperature Oral [96.4-99.1 DegF] 100/49 mmHg (01/14/15 2:25 AM) 107/57 mmHg (01/14/15 12:11 AM) 165/105 mmHg *HI* (01/13/15 5:52 PM) Blood Pressure [90-140/60-90 mmHg] 16 BRMIN (01/14/15 2:25 AM) 18 BRMIN (01/14/15 12:11 AM) 20 BRMIN (01/13/15 5:52 PM) Respiratory Rate [14-20 BRMIN] 103 bpm *HI* (01/13/15 5:52 PM) Peripheral Pulse Rate [60-100 bpm] 109.091 kg (01/13/15 5:52 PM) Weight 40.02 m2 (01/13/15 5:52 PM) Body Mass Index Problem List Condition [...] Active inactivated Januvia Active metformin Active Medications Colace 100 mg oral capsule 100 mg=1 cap, PO, BID, Constipation, # 20 cap, 0 Refill(s) Start Date: 01/14/15 Status: Ordered Robitussin Cough & Allergy oral liquid 5 mL, PO, Q4H, # 120 mL, 0 Refill(s) Start Date: 01/14/15 Status: Ordered Ultracet oral tablet 1 tab, PO, Q12H, Pain Score 6-10, # 20 tab, 0 Refill(s) Start Date: 01/14/15 Status: Ordered Results ELECTROLYTES Most recent to 1 oldest [Reference Range]: Sodium Lvl [135-145 134 mEq/L mEq/L] *LOW* (01/13/15 9:03 PM) Potassium Lvl 3.7 mEq/L [3.5-5.1 mEq/L] (01/13/15 9:03 PM) Chloride Lvl [95-109 97 mEq/L mEq/L] (01/13/15 9:03 PM) CO2 [24-32 mEq/L] 27 mEq/L (01/13/15 9:03 PM) AGAP [10.0-20.0 13.7 mEq/L mEq/L] (01/13/15 9:03 PM) CHEM PANEL Most recent to 1 oldest [Reference Range]: Creatinine Lvl 0.9 mg/dL [0.5-1.4 mg/dL] (01/13/15 9:03 PM) eGFR 69 mL/min/1.73m2 1 *NA* (01/13/15 9:03 PM) BUN [7-22 mg/dL] 19 mg/dL (01/13/15 9:03 PM) B/C Ratio [6-25] 21 (01/13/15 9:03 PM) Glucose Lvl [70-99 381 mg/dL 2 mg/dL] *HI* (01/13/15 9:03 PM) Total Protein 8.3 g/dL [6.4-8.4 g/dL] (01/13/15 9:03 PM) Albumin Lvl [3.5-5.0 3.2 g/dL g/dL] *LOW* (01/13/15 9:03 PM) Globulin [2.0-4.0 5.1 g/dL g/dL] *HI* (01/13/15 9:03 PM) A/G Ratio [0.7-1.6] 0.6 *LOW* (01/13/15 9:03 PM) Calcium Lvl 8.5 mg/dL [8.5-10.5 mg/dL] (01/13/15 9:03 PM) ALT [0-65 unit/L] 24 unit/L (01/13/15 9:03 PM) AST [0-37 unit/L] 16 unit/L (01/13/15 9:03 PM) Alk Phos [39-136 153 unit/L unit/L] *HI* (01/13/15 9:03 PM) Bili Total [0.2-1.3 0.3 mg/dL mg/dL] (01/13/15 9:03 PM) 1Result Comment: The eGFR is calculated [...] values reflect the clinical guidelines of the [place] [employer]. IMMUNOLOGY Most recent to 1 oldest [Reference Range]: CDC HIV 4th GEN Negative [Negative] (01/13/15 9:03 PM) [place]-Hep C Ab Negative [Negative] *NA* (01/13/15 9:03 PM) HEMATOLOGY Most recent to 1 oldest [Reference Range]: WBC [3.7-10.4 K/CMM] 5.6 K/CMM (01/13/15 9:03 PM) RBC [4.20-5.40 4.29 M/CMM M/CMM] (01/13/15:03 PM) Hgb [12.0-16.0 g/dL] 12.8 g/dL (01/13/15:03 PM) Hct [36.0-48.0 %] 38.7 % (01/13/15: PM) MCV [80.0-98.0 fL] 90.0 fL (01/13/15: PM) MCH [27.0-31.0 pg] 29.8 pg (01/13/15 PM) MCHC [32.0-36.0 33.1 g/dL g/dL] (01/13/15 PM) RDW [11.5-14.5 %] 13.6 % (01/13/15: PM) Platelet [133-450 198 K/CMM K/CMM] (01/13/15:03 PM) MPV [7.4-10.4 fL] 10.0 fL (01/13/15:03 PM) Segs [45.0-75.0 %] 58.5 % (01/13/15 9:03 PM) Lymphocytes 26.3 % [20.0-40.0 %] (01/13/15: PM) Monocytes [2.0-12.0 12.6 % %] *HI* (01/13/15:03 PM) Eosinophils [0.0-4.0 1.6 % %] (01/13/15 9:03 PM) Basophils [0.0-1.0 1.0 % %] (01/13/15 9:03 PM) Segs-Bands # 3.3 K/CMM [1.5-8.1 K/CMM] (01/13/15 9:03 PM) Lymphocytes # 1.5 K/CMM [1.0-5.5 K/CMM] (01/13/15 9:03 PM) Monocytes # [0.0-0.8 0.7 K/CMM K/CMM] (01/13/15 9:03 PM) Eosinophils # 0.1 K/CMM [0.0-0.5 K/CMM] (01/13/15 9:03 PM) Basophils # [0.0-0.2 0.1 K/CMM K/CMM] (01/13/15 9:03 PM) VIRAL - SEROLOGY Most recent to 1 oldest [Reference Range]: Influ A [Negative] Negative (01/14/15 12:05 AM) Influ B [Negative] Negative 3 (01/14/15 12:05 AM) 3Interpretive Data: Influenza A&B Antigen: Due to the low sensitivity of this test a negative result does not exclude influ joycelyn virus infection. A diagnosis of influenza should be considered based on a p atient's clinical presentation and empiric antiviral treatment should be conside red, if indicated. If more conclusive testing is desired, follow-up confirmatory testing with either viral culture or PCR is warranted. Immunizations No data available for this section Procedures No data available for this section Social History Social History Type Response Substance Abuse Use: None. Alcohol Never Smoking Status Never smoker; Exposure to Tobacco Smoke None; Cigarette Smoking Last 365 Days No; Reg Smoking Cessation Counseling No Assessment and Plan No data available for this section
--- OUTSIDE RECORDS SUMMARY | 2019-03-23 18:38 | XMS REPORT | Summary of Care ---
Author Organization Unknown Address Unknown Phone Unavailable Encounter HQ Olivier(JOVANNY) [id number] Date(s): 10/28/14 - 10/30/14 [facility] [address] [address] Discharge Disposition: Against Medical Advise Physician [...] 0.4 mL, Route: SUB-Q, Drug form: INJ, [id number], Dosing Weight 104.545, kg , Start date: [...] 300 mL, Route: IVPB, Drug form: SOLN, [id number], Dosing Weight 104.545, kg , Start date: [...] values reflect the clinical guidelines of the [place] [employer]. 3Result Comment: Critical Result(s) called to JUAN CAMPOVERDE at 10/29/2014 17:47 by CV. Read back OK. 4Interpretive Data: Adult reference range values reflect the clinical guidelines of the [place] [employer]. HEMATOLOGY Most recent to 1 [...]
--- OUTSIDE RECORDS SUMMARY | 2019-03-23 18:38 | XMS REPORT | Summary of Care ---
Author Organization Unknown Address Unknown Phone Unavailable Encounter KENROY Aguayo(JOVANNY) [id number] Date(s): 11/16/14 - 11/16/14 [facility] [address] Discharge Diagnosis: Abdominal pain, acute Discharge Diagnosis: Sprain of cervical neck Discharge Diagnosis: Distal radial fracture Discharge Disposition: Home Physician Attending: Chente Martinez MD Reason for Visit FALL Vital Signs Most recent to 1 2 oldest [Reference Range]: Height 165.1 cm (11/16/14 9:23 AM) Temperature Oral 98.2 DegF 98.2 DegF [96.4-99.1 DegF] (11/16/14 1:25 PM) (11/16/14 9:23 AM) Systolic Blood 131 mmHg 147 mmHg Pressure [90-140 (11/16/14 1:25 PM) *HI* mmHg] (11/16/14 9:23 AM) Diastolic Blood 66 mmHg 97 mmHg Pressure [60-90 (11/16/14 1:25 PM) *HI* mmHg] (11/16/14 9:23 AM) Respiratory Rate 18 BRMIN 18 BRMIN [14-20 BRMIN] (11/16/14 1:25 PM) (11/16/14 9:23 AM) Peripheral Pulse 88 bpm 99 bpm Rate [60-100 bpm] (11/16/14 1:25 PM) (11/16/14 9:23 AM) Weight 106.818 kg (11/16/14 9:23 AM) Body Mass Index 39.19 m2 (11/16/14 9:23 AM) Problem List Condition Effective Dates Status [...] Active inactivated Januvia Active metformin Active Medications morphine Sulfate 4 mg, Route: IVP, ONCE, Dosing Weight 106.818, kg, Priority: STAT, Start date: 1 9:49:00, Stop date: 11/16/14 9:49:00 Start Date: 11/16/14 Stop Date: 11/16/14 Status: Completed [place] 5/325 oral tablet 1 tab, Route: PO, Drug Form: TAB, Dosing Weight 106.818, kg, ONCE, STAT, Start d ate: 11/16/14 13:13:00, Stop date: 11/16/14 13:13:00 Start Date: 11/16/14 Stop Date: 11/16/14 Status: Completed [place] 5/325 oral tablet 1-2 tab, PO, Q4-6H, Pain, # 15 tab, 0 Refill(s), given to patient Start Date: 11/16/14 Stop Date: 11/21/14 Status: Ordered ondansetron 4 mg, Route: IVP, Drug form: INJ, ONCE, Dosing Weight 106.818, kg, Priority: STA T, Start date: 11/16/14 9:49:00, Stop date: 11/16/14 9:49:00 Start Date: 11/16/14 Stop Date: 11/16/14 Status: Completed Results ELECTROLYTES Most recent to 1 oldest [Reference Range]: Sodium Lvl [135-145 134 mEq/L mEq/L] *LOW* (11/16/14 10:15 AM) Potassium Lvl 3.6 mEq/L [3.5-5.1 mEq/L] (11/16/14 10:15 AM) Chloride Lvl [95-109 98 mEq/L mEq/L] (11/16/14 10:15 AM) CO2 [24-32 mEq/L] 29 mEq/L (11/16/14 10:15 AM) AGAP [10.0-20.0 10.6 mEq/L mEq/L] (11/16/14 10:15 AM) CHEM PANEL Most recent to 1 oldest [Reference Range]: Creatinine Lvl 0.8 mg/dL [0.5-1.4 mg/dL] (11/16/14 10:15 AM) eGFR 80 mL/min/1.73m2 1 *NA* (11/16/14 10:15 AM) BUN [7-22 mg/dL] 17 mg/dL (11/16/14 10:15 AM) Glucose Lvl [70-99 369 mg/dL 2 mg/dL] *HI* (11/16/14 10:15 AM) Calcium Lvl 9.0 mg/dL [8.5-10.5 mg/dL] (11/16/14 10:15 AM) 1Result Comment: The eGFR is calculated [...] values reflect the clinical guidelines of the [place] [employer]. HEMATOLOGY Most recent to 1 oldest [Reference Range]: WBC [3.7-10.4 K/CMM] 3.6 K/CMM *LOW* (11/16/14 10:15 AM) RBC [4.20-5.40 4.47 M/CMM M/CMM] (11/16/14 10:15 AM) Hgb [12.0-16.0 g/dL] 13.1 g/dL (11/16/14 10:15 AM) Hct [36.0-48.0 %] 40.2 % (11/16/14 10:15 AM) MCV [80.0-98.0 fL] 89.8 fL (11/16/14 10:15 AM) MCH [27.0-31.0 pg] 29.3 pg (11/16/14 10:15 AM) MCHC [32.0-36.0 32.6 g/dL g/dL] (11/16/14 10:15 AM) RDW [11.5-14.5 %] 13.8 % (11/16/14 10:15 AM) Platelet [133-450 222 K/CMM K/CMM] (11/16/14 10:15 AM) MPV [7.4-10.4 fL] 10.1 fL (11/16/14 10:15 AM) Segs [45.0-75.0 %] 56.3 % (11/16/14 10:15 AM) Lymphocytes 26.8 % [20.0-40.0 %] (11/16/14 10:15 AM) Monocytes [2.0-12.0 12.7 % %] *HI* (11/16/14 10:15 AM) Eosinophils [0.0-4.0 3.2 % %] (11/16/14 10:15 AM) Basophils [0.0-1.0 1.0 % %] (11/16/14 10:15 AM) Segs-Bands # 2.0 K/CMM [1.5-8.1 K/CMM] (11/16/14 10:15 AM) Lymphocytes # 1.0 K/CMM [1.0-5.5 K/CMM] (11/16/14 10:15 AM) Monocytes # [0.0-0.8 0.5 K/CMM K/CMM] (11/16/14 10:15 AM) Eosinophils # 0.1 K/CMM [0.0-0.5 K/CMM] (11/16/14 10:15 AM) Medications Administered During Your Visit No data available for this section Immunizations No data available for this section Social History Social History Type Response Substance Abuse Use: None Alcohol Use: Never Smoking Status Never smoker, Exposure to Tobacco Smoke None, Cigarette Smoking Last 365 Days No, Reg Smoking Cessation Counseling No
--- OUTSIDE RECORDS SUMMARY | 2019-03-23 18:38 | XMS REPORT | Summary of Care ---
Author Organization Unknown Address Unknown Phone Unavailable Encounter HQ Olivier(JOVANNY) [id number] Date(s): 01/13/15 - 01/14/15 [facility] [address] [place] [address]- [phone] Discharge Diagnosis: Toe sprain Discharge Disposition: Home [...] values reflect the clinical guidelines of the [place] [employer]. IMMUNOLOGY Most recent to 1 oldest [Reference Range]: CDC HIV 4th GEN Negative [Negative] (01/13/15 9:03 PM) [place]-Hep C Ab Negative [Negative] *NA* (01/13/15 9:03 PM) HEMATOLOGY Most recent to 1 oldest [Reference Range]: WBC [3.7-10.4 K/CMM] 5.6 K/CMM (01/13/15 9:03 PM) RBC [4.20-5.40 4.29 M/CMM M/CMM] (01/13/15: PM) Hgb [12.0-16.0 g/dL] 12.8 g/dL (01/13/15:03 PM) Hct [36.0-48.0 %] 38.7 % (01/13/15: PM) MCV [80.0-98.0 fL] 90.0 fL (01/13/15: PM) MCH [27.0-31.0 pg] 29.8 pg (01/13/15 PM) MCHC [32.0-36.0 33.1 g/dL g/dL] (01/13/15 PM) RDW [11.5-14.5 %] 13.6 % (01/13/15: PM) Platelet [133-450 198 K/CMM K/CMM] (01/13/15: PM) MPV [7.4-10.4 fL] 10.0 fL (01/13/15: PM) Segs [45.0-75.0 %] 58.5 % (01/13/15:03 PM) Lymphocytes 26.3 % [20.0-40.0 %] (01/13/15: PM) Monocytes [2.0-12.0 12.6 % %] *HI* (01/13/15: PM) Eosinophils [0.0-4.0 1.6 % %] (01/13/15 [...]
--- OUTSIDE RECORDS SUMMARY | 2019-03-23 18:38 | XMS REPORT | Summary of Care ---
Author Organization Unknown Address Unknown Phone Unavailable Encounter [facility] Olivier(JOVANNY) [id number] Date(s): 10/20/14 - 10/28/14 [facility] [address] Discharge Disposition: Home Physician Attending: Jagdish Peña MD Physician Admitting: Jagdish Peña MD Reason for Visit COMPLICATED UTI, PERSISTENT ABDOMINAL PAIN Vital Signs 1 2 3 Most recent to oldest [Reference Range]: 165.1 cm (10/21/14 5:43 AM) 160.02 cm (10/20/14 6:18 PM) Height 112.318 kg (10/27/14 5:53 AM) Current Weight 98.4 DegF (10/28/14 12:10 PM) 98.3 DegF (10/28/14 8:20 AM) 97.4 DegF (10/28/14 4:25 AM) Temperature Oral [96.4-99.1 DegF] 128 mmHg (10/28/14 12:10 PM) 140 mmHg (10/28/14 8:20 AM) 155 mmHg *HI* (10/28/14 4:25 AM) Systolic Blood Pressure [90-140 mmHg] 78 mmHg (10/28/14 12:10 PM) 86 mmHg (10/28/14 8:20 AM) 68 mmHg (10/28/14 4:25 AM) Diastolic Blood Pressure [60-90 mmHg] 17 BRMIN (10/28/14 12:10 PM) 19 BRMIN (10/28/14 8:20 AM) 18 BRMIN (10/28/14 4:25 AM) Respiratory Rate [14-20 BRMIN] 92 bpm (10/28/14 12:10 PM) 97 bpm (10/28/14 8:20 AM) 68 bpm (10/28/14 4:25 AM) Peripheral Pulse Rate [60-100 bpm] 109.091 kg (10/21/14 5:43 AM) 110 kg (10/20/14 6:18 PM) Weight 40.02 m2 (10/21/14 5:43 AM) 42.96 m2 (10/20/14 6:18 PM) Body Mass Index Problem List Condition [...] Active inactivated Januvia Active metformin Active Medications acetaminophen 650 mg, 2 tab, Route: PO, Drug form: TAB, Q4H, Dosing Weight 110, kg, PRN Pain 1 -3/Temp > 100.4 F, Start date: 10/21/14 5:36:00, Duration: 30 day, Stop date: 11/20/14 5:35:00 Notes: Do not exceed 4 gm/day. (Same as: Tylenol) Start Date: 10/21/14 Stop Date: 10/21/14 Status: Discontinued acetaminophen-codeine 300 mg-30 mg oral tablet 2 tab, Route: PO, Drug Form: TAB, Q4H, PRN Pain Score 6-10, Start date: 10/21/14 11:15:00, Duration: 30 day, Stop date: 11/20/14 11:14:00 Notes: Do not exceed 4gm/day of acetaminophen. (Same as: Tylenol with Codeine # 3) Start Date: 10/21/14 Stop Date: 10/28/14 Status: Discontinued Benadryl 12.5 mg, 0.25 mL, Route: IVP, Drug form: INJ, ONCE, Dosing Weight 110, kg, Prior ity: STAT, Start date: 10/20/14 22:22:00, Stop date: 10/20/14 22:22:00 Notes: (Same as: Benadryl) Start Date: 10/20/14 Stop Date: 10/21/14 Status: Completed calcium gluconate + Sodium Chloride 0.9% IV 100 mL 2 gm, 20 mL, Route: IVPB, PRN, Dosing Weight 109.091, kg, PRN Abnormal Lab Resul t, For NON-ICU Patients Only., Start date: 10/21/14 10:43:00, Duration: 30 day, Stop date: 11/20/14 10:42:00 Start Date: 10/21/14 Stop Date: 10/28/14 Status: Discontinued calcium gluconate + Sodium Chloride 0.9% IV 150 mL 3 gm, 30 mL, Route: IVPB, Drug form: INJ, PRN, Dosing Weight 109.091, kg, PRN Ab normal Lab Result, For NON-ICU Patients Only., Start date: 10/21/14 10:43:00, Du ration: 30 day, Stop date: 11/20/14 10:42:00 Start Date: 10/21/14 Stop Date: 10/28/14 Status: Discontinued Dextrose 50% Syringe 25 gm, 50 mL, Route: IVP, Drug Form: INJ, Dosing Weight 109.091, kg, PRN, PRN Bl ood Glucose Results, Start date: 10/21/14 10:43:00, Duration: 30 day, Stop date: 11/20/14 10:42:00 Start Date: 10/21/14 Stop Date: 10/28/14 Status: Discontinued Dextrose 50% Syringe 12.5 gm, 25 mL, Route: IVP, Drug Form: INJ, Dosing Weight 109.091, kg, PRN, PRN Blood Glucose Results, Start date: 10/21/14 10:43:00, Duration: 30 day, Stop rhea e: 11/20/14 10:42:00 Start Date: 10/21/14 Stop Date: 10/28/14 Status: Discontinued glucagon 1 mg, Route: IM, Drug form: PDR/INJ, PRN, Dosing Weight 109.091, kg, PRN Blood G lucose Results, Start date: 10/21/14 10:43:00, Duration: 30 day, Stop date: 03/01 10:42:00 Start Date: 10/21/14 Stop Date: 10/28/14 Status: Discontinued heparin 5,000 unit, 1 mL, Route: SUB-Q, Drug form: INJ, Q12H, Dosing Weight 109.091, kg, Start date: 10/21/14 21:00:00, Duration: 30 day, Stop date: 11/20/14 9:00:00 Notes: porcine heparin Start Date: 10/21/14 Stop Date: 10/28/14 Status: Discontinued hydrALAZINE 25 mg oral tablet 25 mg, 1 tab, Route: PO, Drug form: TAB, TID, Dosing Weight 109.091, kg, Start d ate: 10/27/14 0:45:00, Duration: 30 day, Stop date: 11/25/14 17:00:00 Notes: (Same as: Apresoline) May interfere w/enteral feedings Take With Food. Start Date: 10/27/14 Stop Date: 10/28/14 Status: Discontinued hydrALAZINE 25 mg oral tablet 25 mg=1 tab, PO, TID, # 90 tab, 0 Refill(s) Start Date: 10/28/14 Status: Suspended insulin aspart 2 unit, 0.02 mL, Route: SUB-Q, Drug form: SOLN, TID-Before Meals, Dosing Weight 109.091, kg, PRN Blood Glucose Results, Start date: 10/21/14 10:43:00, Duration: 30 day, Stop date: 11/20/14 10:42:00 Notes: Roll in palms of hands gently; Do not shake vigorously. (Same as: NovoJUANA G)"single patient use only" Stable for 28 days at room temperature.Expires in _ ____ days from Date Start Date: 10/21/14 Stop Date: 10/28/14 Status: Discontinued insulin aspart 4 unit, 0.04 mL, Route: SUB-Q, Drug form: SOLN, TID-Before Meals, Dosing Weight 109.091, kg, PRN Blood Glucose Results, Start date: 10/21/14 10:43:00, Duration: 30 day, Stop date: 11/20/14 10:42:00 Notes: Roll in palms of hands gently; Do not shake vigorously. (Same as: NovoLO G)"single patient use only" Stable for 28 days at room temperature.Expires in _ ____ days from Date Start Date: 10/21/14 Stop Date: 10/28/14 Status: Discontinued insulin aspart 8 unit, 0.08 mL, Route: SUB-Q, Drug form: SOLN, TID-Before Meals, Dosing Weight 109.091, kg, PRN Blood Glucose Results, Start date: 10/21/14 10:43:00, Duration: 30 day, Stop date: 11/20/14 10:42:00 Notes: Roll in palms of hands gently; Do not shake vigorously. (Same as: NovoLO G)"single patient use only" Stable for 28 days at room temperature.Expires in _ ____ days from Date Start Date: 10/21/14 Stop Date: 10/28/14 Status: Discontinued insulin aspart 10 unit, 0.1 mL, Route: SUB-Q, Drug form: SOLN, TID-Before Meals, Dosing Weight 109.091, kg, PRN Blood Glucose Results, Start date: 10/21/14 10:43:00, Duration: 30 day, Stop date: 11/20/14 10:42:00 Notes: Roll in palms of hands gently; Do not shake vigorously. (Same as: NovoLO G)"single patient use only" Stable for 28 days at room temperature.Expires in _ ____ days from Date Start Date: 10/21/14 Stop Date: 10/28/14 Status: Discontinued insulin aspart 6 unit, 0.06 mL, Route: SUB-Q, Drug form: SOLN, TID-Before Meals, Dosing Weight 109.091, kg, PRN Blood Glucose Results, Start date: 10/21/14 10:43:00, Duration: 30 day, Stop date: 11/20/14 10:42:00 Notes: Roll in palms of hands gently; Do not shake vigorously. (Same as: NovoLO G)"single patient use only" Stable for 28 days at room temperature.Expires in _ ____ days from Date Start Date: 10/21/14 Stop Date: 10/28/14 Status: Discontinued insulin lispro 15 unit, 0.15 mL, Route: SUB-Q, Drug form: SOLN, TID-Before Meals, Dosing Weight 109.091, kg, Start date: 10/23/14 16:30:00, Duration: 30 day, Stop date: 11:30:00 Notes: Roll in palms of hands gently; Do not shake `vigorously. (Same as: Gayathri og )"Single Patient Use Only " Stable for 28 days at room temperature.Expires i n days from Date Start Date: 10/23/14 Stop Date: 10/23/14 Status: Discontinued Levemir 25 unit, 0.25 mL, Route: SUB-Q, Drug form: INJ, BID, Dosing Weight 109.091, kg, Priority: NOW, Start date: 10/25/14 17:04:00, Stop date: 11/24/14 9:00:00 Notes: Same as Tonyir not hold insulin without contacting prescriber "single patient use only" Start Date: 10/25/14 Stop Date: 10/28/14 Status: Discontinued lisinopril 30 mg, 3 tab, Route: PO, Drug form: TAB, BID, Dosing Weight 109.091, kg, Start d ate: 10/21/14 17:00:00, Duration: 30 day, Stop date: 11/20/14 9:00:00 Notes: (Same as: Prinivil, Zestril) Start Date: 10/21/14 Stop Date: 10/28/14 Status: Discontinued magnesium oxide 800 mg, 2 tab, Route: PO, Drug form: TAB, PRN, Dosing Weight 109.091, kg, PRN Ab normal Lab Result, For NON-ICU Patients Only., Start date: 10/21/14 10:43:00, Du ration: 30 day, Stop date: 11/20/14 10:42:00 Notes: (Same as: Mag-Ox 400)Magnesium oxide 401mb=563vl elemental magnesiumDose= ____mg magnesium oxide (___mg elemental magnesium) Start Date: 10/21/14 Stop Date: 10/28/14 Status: Discontinued magnesium sulfate 2 gm, 50 mL, Route: IVPB, Drug form: INJ, PRN, Dosing Weight 109.091, kg, PRN Ab normal Lab Result, For NON-ICU Patients Only., Start date: 10/21/14 10:43:00, Du ration: 30 day, Stop date: 11/20/14 10:42:00 Start Date: 10/21/14 Stop Date: 10/28/14 Status: Discontinued magnesium sulfate 1 gm, 100 mL, Route: IVPB, Drug form: INJ, PRN, Dosing Weight 109.091, kg, PRN A bnormal Lab Result, For NON-ICU Patients Only., Start date: 10/21/14 10:43:00, D uration: 30 day, Stop date: 11/20/14 10:42:00 Start Date: 10/21/14 Stop Date: 10/28/14 Status: Discontinued magnesium sulfate 2gm / NS 50ml (premixed) 2 gm, 50 mL, Route: IVPB, Drug form: INJ, ONCE, Dosing Weight 109.091, kg, Start date: 10/22/14 11:02:00, Duration: 2 hr, Stop date: 10/22/14 11:02:00 Start Date: 10/22/14 Stop Date: 10/22/14 Status: Completed morphine Sulfate 4 mg, Route: IVP, Drug form: INJ, ONCE, Dosing Weight 110, kg, Priority: STAT, S tart date: 10/20/14 22:22:00, Stop date: 10/20/14 22:22:00 Start Date: 10/20/14 Stop Date: 10/20/14 Status: Completed morphine Sulfate 4 mg, Route: IVP, Drug form: INJ, ONCE, Dosing Weight 110, kg, Priority: STAT, S tart date: 10/21/14 2:10:00, Stop date: 10/21/14 2:10:00 Start Date: 10/21/14 Stop Date: 10/21/14 Status: Completed morphine Sulfate 2 mg, 1 mL, Route: IVP, Drug form: INJ, Q3H, Dosing Weight 110, kg, PRN Pain Sco re 4-6, Start date: 10/21/14 5:36:00, Duration: 30 day, Stop date: 11/20/14 5:35 :00 Notes: (Same as:MORPhine Sulfate) Start Date: 10/21/14 Stop Date: 10/28/14 Status: Discontinued NexIUM 40 mg, Route: PO, Drug form: ECCAP, Daily, Dosing Weight 109.091, kg, Start date : 10/22/14 9:00:00, Duration: 30 day, Stop date: 11/20/14 9:00:00 Start Date: 10/22/14 Stop Date: 10/21/14 Status: Deleted NovoLOG FlexPen 8 unit, 0.08 mL, Route: SUB-Q, Drug form: SOLN, ONCE, Dosing Weight 109.091, kg, Priority: NOW, Start date: 10/23/14 21:48:00, Stop date: 10/23/14 21:48:00 Notes: Roll in palms of hands gently; Do not shake vigorously. (Same as: Manuel Garcia)"single patient use only" Stable for 28 days at room temperature.Expires in _ ____ days from Date Start Date: 10/23/14 Stop Date: 10/23/14 Status: Completed NovoLOG FlexPen 8 unit, Route: SUB-Q, ONCE, Dosing Weight 109.091, kg, Start date: 10/23/14 21:4 0:00, Stop date: 10/23/14 21:40:00 Start Date: 10/23/14 Stop Date: 10/23/14 Status: Discontinued NovoLOG FlexPen 15 unit, 0.15 mL, Route: SUB-Q, Drug form: SOLN, TID-Before Meals, Start date: 1 12/25/13 7:30:00, Duration: 30 day, Stop date: 11/22/14 16:30:00 Notes: Roll in palms of hands gently; Do not shake vigorously. (Same as: NovoJUANA G)"single patient use only" Stable for 28 days at room temperature.Expires in _ ____ days from Date Start Date: 10/24/14 Stop Date: 10/28/14 Status: Discontinued NS (Bolus) IV 500 mL, 500 ml/hr, Infuse Over: 1 hr, Route: IV, ONCE, Priority: STAT, Dosing We ight 110 kg, Start date: 10/20/14 22:21:00, Duration: 1 doses or times, Stop rhea e: 10/20/14 22:21:00 Start Date: 10/20/14 Stop Date: 10/20/14 Status: Completed NS 1,000 mL 1,000 mL, Rate: 75 ml/hr, Infuse over: 13.3 hr, Route: IV, Dosing Weight 110 kg, Total Volume: 1,000, Start date: 10/21/14 5:36:00, Duration: 30 day, Stop date: 11/20/14 5:35:00 Start Date: 10/21/14 Stop Date: 10/28/14 Status: Discontinued ondansetron 4 mg, 2 mL, Route: IVP, Drug form: INJ, Q8H, Dosing Weight 110, kg, PRN Nausea & Vomiting, Start date: 10/21/14 5:36:00, Duration: 30 day, Stop date: 11/20/14 5 :35:00 Notes: (Same as: Zofran) Start Date: 10/21/14 Stop Date: 10/28/14 Status: Discontinued oxybutynin 10 mg, 2 tab, Route: PO, Drug form: ERTAB, Daily, Dosing Weight 109.091, kg, Sta rt date: 10/22/14 9:00:00, Duration: 30 day, Stop date: 11/20/14 9:00:00 Notes: (Same as: Ditropan XL) "Do Not Crush" Start Date: 10/22/14 Stop Date: 10/28/14 Status: Discontinued oxybutynin 5 mg oral tablet, extended release 10 mg=2 tab, PO, Daily, # 60 tab, 0 Refill(s) Start Date: 10/28/14 Status: Suspended phenazopyridine 200 mg oral tablet 200 mg=1 tab, PO, TID-After Meals, # 90 tab, 0 Refill(s) Start Date: 10/28/14 Status: Suspended potassium chloride 40 mEq, Route: PO, ONCE, Dosing Weight 109.091, kg, Start date: 10/22/14 11:02:0 0, Stop date: 10/22/14 11:02:00 Start Date: 10/22/14 Stop Date: 10/22/14 Status: Completed potassium chloride 10 mEq, 100 mL, Route: IVPB, Drug form: INJ, PRN, Dosing Weight 109.091, kg, PRN Abnormal Lab Result, For NON-ICU Patients Only, Start date: 10/21/14 10:43:00, Duration: 30 day, Stop date: 11/20/14 10:42:00 Notes: Infuse at a rate of 10 mEq/hr.(Same as: KCL) Start Date: 10/21/14 Stop Date: 10/28/14 Status: Discontinued potassium chloride 20 mEq, 1 tab, Route: PO, Drug form: ERTAB, PRN, Dosing Weight 109.091, kg, PRN Abnormal Lab Result, For NON-ICU Patients Only, Start date: 10/21/14 10:43:00, D uration: 30 day, Stop date: 11/20/14 10:42:00 Notes: (Same as: K-Dur 20)"Do Not Crush" With food and full glass of water Start Date: 10/21/14 Stop Date: 10/28/14 Status: Discontinued potassium chloride 20 mEq, 15 mL, Route: NJ, Drug form: LIQ, PRN, Dosing Weight 109.091, kg, PRN Ab normal Lab Result, For NON-ICU Patients Only, Start date: 10/21/14 10:43:00, Dur ation: 30 day, Stop date: 11/20/14 10:42:00 Notes: (Same as: Potassium Chloride) Start Date: 10/21/14 Stop Date: 10/28/14 Status: Discontinued potassium chloride 20 mEq, 100 mL, Route: IVPB, Drug form: INJ, Q2H, Dosing Weight 110, kg, Total d ose=40 mEq, Start date: 10/21/14 2:00:00, Duration: 2 doses or times, Stop date: 10/21/14 4:00:00 Notes: (Same as: KCL) Infuse no faster than 10 mEq/hr if given peripherally. Start Date: 10/21/14 Stop Date: 10/21/14 Status: Completed potassium chloride 20 mEq oral tablet, extended release 20 mEq, 1 tab, Route: PO, Drug form: ERTAB, ONCE, Dosing Weight 109.091, kg, Sta rt date: 10/23/14 6:41:00, Stop date: 10/23/14 6:41:00 Notes: (Same as: K-Dur 20)"Do Not Crush" With food and full glass of water Start Date: 10/23/14 Stop Date: 10/23/14 Status: Completed potassium phosphate + Sodium Chloride 0.9% IV 250 mL 30 mmol, 10 mL, Route: IVPB, Drug form: INJ, PRN, Dosing Weight 109.091, kg, PRN Abnormal Lab Result, For NON-ICU Patients Only., Start date: 10/21/14 10:43:00, Duration: 30 day, Stop date: 11/20/14 10:42:00 Notes: (Same as: K Phosphate.) 1 mMol phoshate has 1.47 mEq potassium Infuse o denis 4 hours Start Date: 10/21/14 Stop Date: 10/28/14 Status: Discontinued potassium phosphate + Sodium Chloride 0.9% IV 250 mL 15 mmol, 5 mL, Route: IVPB, Drug form: INJ, PRN, Dosing Weight 109.091, kg, PRN Abnormal Lab Result, For NON-ICU Patients Only., Start date: 10/21/14 10:43:00, Duration: 30 day, Stop date: 11/20/14 10:42:00 Notes: (Same as: K Phosphate.) 1 mMol phoshate has 1.47 mEq potassium Infuse o denis 4 hours Start Date: 10/21/14 Stop Date: 10/28/14 Status: Discontinued potassium phosphate-sodium phosphate 250 mg-278 mg-164 mg oral powder 2 pkt, Route: PO, Drug Form: PDR/REC, Dosing Weight 109.091, kg, PRN, PRN Abnorm al Lab Result, For NON-ICU Patients Only, Start date: 10/21/14 10:43:00, Vickytio n: 30 day, Stop date: 11/20/14 10:42:00 Notes: (Same as: Neutra-Phos) Each 1.25 gm pkt has 250mg phosphorous. Mix w/2.5 oz water and stir. Start Date: 10/21/14 Stop Date: 10/28/14 Status: Discontinued Protonix 40 mg, 1 tab, Route: PO, Drug form: ECTAB, Before Dinner, Start date: 10/21/14 1 6:30:00, Duration: 30 day, Stop date: 11/19/14 16:30:00 Notes: Tablet should not be chewed or crushed.(Same as: Protonix) Start Date: 10/21/14 Stop Date: 10/28/14 Status: Discontinued Pyridium 200 mg, 1 tab, Route: PO, Drug form: TAB, TID-After Meals, Dosing Weight 109.091 , kg, Start date: 10/27/14 1:00:00, Duration: 3 day, Stop date: 10/29/14 17:30:0 0 Notes: Give with meals.(Same as: Pyridium) Start Date: 10/27/14 Stop Date: 10/28/14 Status: Discontinued Rocephin 1 gm, Route: IVPB, Drug form: PDR/INJ, ONCE, Dosing Weight 110, kg, Priority: ST AT, Start date: 10/21/14 0:47:00, Stop date: 10/21/14 0:47:00 Start Date: 10/21/14 Stop Date: 10/21/14 Status: Completed sodium phosphate + Dextrose 5% in Water IV 250 mL 15 mmol, 5 mL, Route: IVPB, Drug form: INJ, PRN, Dosing Weight 109.091, kg, PRN Abnormal Lab Result, For NON-ICU Patients Only., Start date: 10/21/14 10:43:00, Duration: 30 day, Stop date: 11/20/14 10:42:00 Start Date: 10/21/14 Stop Date: 10/28/14 Status: Discontinued sodium phosphate + Dextrose 5% in Water IV 250 mL 30 mmol, 10 mL, Route: IVPB, Drug form: INJ, PRN, Dosing Weight 109.091, kg, PRN Abnormal Lab Result, For NON-ICU Patients Only., Start date: 10/21/14 10:43:00, Duration: 30 day, Stop date: 11/20/14 10:42:00 Start Date: 10/21/14 Stop Date: 10/28/14 Status: Discontinued Tylenol with Codeine #3 oral tablet 1 tab, Route: PO, Drug Form: TAB, Dosing Weight 109.091, kg, Q4H, PRN Pain Score 4-6, Start date: 10/21/14 10:40:00, Stop date: 11/22/14 16:46:00 Notes: Do not exceed 4gm/day of acetaminophen. (Same as: Tylenol with Codeine # 3) Start Date: 10/21/14 Stop Date: 10/28/14 Status: Discontinued Zofran 4 mg, Route: IVP, Drug form: INJ, ONCE, Dosing Weight 110, kg, Priority: STAT, S tart date: 10/20/14 22:22:00, Stop date: 10/20/14 22:22:00 Start Date: 10/20/14 Stop Date: 10/20/14 Status: Completed Zofran 4 mg, 2 mL, Route: IV, Drug form: INJ, Q8H, Dosing Weight 109.091, kg, PRN Nause a, Start date: 10/21/14 10:42:00, Duration: 30 day, Stop date: 11/20/14 10:41:00 Notes: (Same as: Zofran) Start Date: 10/21/14 Stop Date: 10/28/14 Status: Discontinued Zosyn 3.375 gm, 100 mL, Route: IVPB, Drug form: PDR/INJ, ABXQ8H, Dosing Weight 109.091 , kg, Start date: 10/21/14 11:00:00, Duration: 30 day, Stop date: 11/20/14 3:00: 00 Notes: (Same as: Zosyn)Infuse over 4 hours. Activate and reconstitute before us e. Dosing based on Piperacillin component Start Date: 10/21/14 Stop Date: 10/25/14 Status: Discontinued Zyvox 600 mg, 300 mL, Route: IVPB, Drug form: SOLN, [id number], Dosing Weight 109.091, kg , Priority: NOW, Start date: 10/25/14 17:05:00, Duration: 30 day, Stop date: 07/01 6:00:00 Notes: (Same as: Zyvox) Start Date: 10/25/14 Stop Date: 10/28/14 Status: Discontinued Zyvox 600 mg oral tablet 600 mg=1 tab, PO, Q12H, # 20 tab, 0 Refill(s) Start Date: 10/28/14 Status: Suspended Results ELECTROLYTES 1 2 3 Most recent to oldest [Reference Range]: 134 mEq/L *LOW* (10/26/14 6:39 AM) 137 mEq/L (10/25/14 6:29 AM) 137 mEq/L (10/24/14 4:06 AM) Sodium Lvl [135-145 mEq/L] 3.6 mEq/L (10/26/14 6:39 AM) 3.6 mEq/L (10/25/14 6:29 AM) 3.6 mEq/L (10/24/14 4:06 AM) Potassium Lvl [3.5-5.1 mEq/L] 99 mEq/L (10/26/14 6:39 AM) 101 mEq/L (10/25/14 6:29 AM) 102 mEq/L (10/24/14 4:06 AM) Chloride Lvl [95-109 mEq/L] 25 mEq/L (10/26/14 6:39 AM) 27 mEq/L (10/25/14 6:29 AM) 27 mEq/L (10/24/14 4:06 AM) CO2 [24-32 mEq/L] 13.6 mEq/L (10/26/14 6:39 AM) 12.6 mEq/L (10/25/14 6:29 AM) 11.6 mEq/L (10/24/14 4:06 AM) AGAP [10.0-20.0 mEq/L] CHEM PANEL 1 2 3 Most recent to oldest [Reference Range]: 0.7 mg/dL (10/26/14 6:39 AM) 0.7 mg/dL (10/25/14 6:29 AM) 0.7 mg/dL (10/24/14 4:06 AM) Creatinine Lvl [0.5-1.4 mg/dL] 94 mL/min/1.73m2 1 *NA* (10/26/14 6:39 AM) 94 mL/min/1.73m2 2 *NA* (10/25/14 6:29 AM) 94 mL/min/1.73m2 3 *NA* (10/24/14 4:06 AM) eGFR 3 mg/dL *LOW* (10/26/14 6:39 AM) 5 mg/dL *LOW* (10/25/14 6:29 AM) 6 mg/dL *LOW* (10/24/14 4:06 AM) BUN [7-22 mg/dL] 18 (10/20/14 9:50 PM) B/C Ratio [6-25] 313 mg/dL 4 *HI* (10/26/14 6:39 AM) 386 mg/dL 5 *HI* (10/25/14 6:29 AM) 329 mg/dL 6 *HI* (10/24/14 4:06 AM) Glucose Lvl [70-99 mg/dL] 7.2 g/dL (10/20/14 9:50 PM) Total Protein [6.4-8.4 g/dL] 2.7 g/dL *LOW* (10/20/14 9:50 PM) Albumin Lvl [3.5-5.0 g/dL] 4.5 g/dL *HI* (10/20/14 9:50 PM) Globulin [2.0-4.0 g/dL] 0.6 *LOW* (10/20/14 9:50 PM) A/G Ratio [0.7-1.6] 8.2 mg/dL *LOW* (10/26/14 6:39 AM) 7.5 mg/dL *LOW* (10/25/14 6:29 AM) 7.4 mg/dL *LOW* (10/24/14 4:06 AM) Calcium Lvl [8.5-10.5 mg/dL] 1.7 mg/dL *LOW* (10/22/14 4:36 AM) Magnesium Lvl [1.8-2.4 mg/dL] 17 unit/L (10/20/14 9:50 PM) ALT [0-65 unit/L] 14 unit/L (10/20/14 9:50 PM) AST [0-37 unit/L] 90 unit/L (10/20/14 9:50 PM) Alk Phos [39-136 unit/L] 0.6 mg/dL (10/20/14 9:50 PM) Bili Total [0.2-1.3 mg/dL] 16 unit/L *LOW* (10/20/14 9:50 PM) Amylase Lvl [25-115 unit/L] 70 unit/L *LOW* (10/20/14 9:50 PM) Lipase Lvl [73-393 unit/L] 1Result Comment: [...] values reflect the clinical guidelines of the [place] [employer]. 5Interpretive Data: Adult reference range values reflect the clinical guidelines of the [place] [employer]. 6Interpretive Data: Adult reference range values reflect the clinical guidelines of the [place] [employer]. CARDIAC ENZYMES 1 2 3 Most recent to oldest [Reference Range]: 33 unit/L (10/20/14 9:50 PM) Total CK [12-191 unit/L] <0.5 ng/mL (10/20/14 9:50 PM) CK MB [0.5-3.6 ng/mL] <1.5 (10/20/14 9:50 PM) CK MB Index [0.0-2.5] <0.02 ng/mL (10/20/14 9:50 PM) Troponin-I [0.00-0.40 ng/mL] URINE AND STOOL 1 2 3 Most recent to oldest [Reference Range]: Slight *ABN* (10/20/14 9:50 PM) UA Turbidity [Clear] Yellow *NA* (10/20/14 9:50 PM) UA Color [Yellow] 6.0 (10/20/14 9:50 PM) UA pH [5.0-8.0] 1.018 (10/20/14 9:50 PM) UA Spec Grav [<=1.030] 50 mg/dL *ABN* (10/20/14 9:50 PM) UA Glucose [Negative mg/dL] Negative (10/20/14 9:50 PM) UA Blood [Negative] 20 mg/dL *ABN* (10/20/14 9:50 PM) UA Ketones [Negative mg/dL] 30 mg/dL *ABN* (10/20/14 9:50 PM) UA Protein [Negative mg/dL] 4.0 mg/dL *HI* (10/20/14 9:50 PM) UA Urobilinogen [0.1-1.0 mg/dL] Negative *NA* (10/20/14 9:50 PM) UA Bili [Negative] Moderate *ABN* (10/20/14 9:50 PM) UA Leuk Est [Negative] Positive *ABN* (10/20/14 9:50 PM) UA Nitrite [Negative] 48 /HPF *HI* (10/20/14 9:50 PM) UA WBC [0-5 /HPF] 6 /HPF *HI* (10/20/14 9:50 PM) UA RBC [0-2 /HPF] Occasional /HPF *NA* (10/20/14 9:50 PM) UA Bacteria [None Seen /HPF] Few /LPF *NA* (10/20/14 9:50 PM) UA Sq Epi [Few /LPF] Few /LPF *NA* (10/20/14 9:50 PM) UA Mucus [None Seen /LPF] Few 7 (10/24/14 7:30 AM) Fecal Leukocyte 7Interpretive Data: A Value of None Seen, Rare, or Few is Normal. HEMATOLOGY 1 2 3 Most recent to oldest [Reference Range]: 4.2 K/CMM (10/26/14 6:39 AM) 3.8 K/CMM (10/25/14 6:29 AM) 4.7 K/CMM (10/24/14 4:06 AM) WBC [3.7-10.4 K/CMM] 3.89 M/CMM *LOW* (10/26/14 6:39 AM) 3.69 M/CMM *LOW* (10/25/14 6:29 AM) 3.50 M/CMM *LOW* (10/24/14 4:06 AM) RBC [4.20-5.40 M/CMM] 11.4 g/dL *LOW* (10/26/14 6:39 AM) 10.9 g/dL *LOW* (10/25/14 6:29 AM) 10.6 g/dL *LOW* (10/24/14 4:06 AM) Hgb [12.0-16.0 g/dL] 35.1 % *LOW* (10/26/14 6:39 AM) 33.5 % *LOW* (10/25/14 6:29 AM) 31.9 % *LOW* (10/24/14 4:06 AM) Hct [36.0-48.0 %] 90.2 fL (10/26/14 6:39 AM) 90.9 fL (10/25/14 6:29 AM) 91.2 fL (10/24/14 4:06 AM) MCV [80.0-98.0 fL] 29.3 pg (10/26/14 6:39 AM) 29.6 pg (10/25/14 6:29 AM) 30.3 pg (10/24/14 4:06 AM) MCH [27.0-31.0 pg] 32.5 g/dL (10/26/14 6:39 AM) 32.6 g/dL (10/25/14 6:29 AM) 33.2 g/dL (10/24/14 4:06 AM) MCHC [32.0-36.0 g/dL] 13.3 % (10/26/14 6:39 AM) 13.5 % (10/25/14 6:29 AM) 13.3 % (10/24/14 4:06 AM) RDW [11.5-14.5 %] 308 K/CMM (10/26/14 6:39 AM) 270 K/CMM (10/25/14 6:29 AM) 227 K/CMM (10/24/14 4:06 AM) Platelet [133-450 K/CMM] 8.6 fL (10/26/14 6:39 AM) 8.7 fL (10/25/14 6:29 AM) 9.1 fL (10/24/14 4:06 AM) MPV [7.4-10.4 fL] 53.6 % (10/26/14 6:39 AM) 49.0 % (10/25/14 6:29 AM) 54.5 % (10/24/14 4:06 AM) Segs [45.0-75.0 %] 22.6 % (10/26/14 6:39 AM) 27.3 % (10/25/14 6:29 AM) 25.0 % (10/24/14 4:06 AM) Lymphocytes [20.0-40.0 %] 15.5 % *HI* (10/26/14 6:39 AM) 15.9 % *HI* (10/25/14 6:29 AM) 13.8 % *HI* (10/24/14 4:06 AM) Monocytes [2.0-12.0 %] 7.2 % *HI* (10/26/14 6:39 AM) 6.9 % *HI* (10/25/14 6:29 AM) 5.6 % *HI* (10/24/14 4:06 AM) Eosinophils [0.0-4.0 %] 1.1 % *HI* (10/26/14 6:39 AM) 0.9 % (10/25/14 6:29 AM) 1.1 % *HI* (10/24/14 4:06 AM) Basophils [0.0-1.0 %] 2.2 K/CMM (10/26/14 6:39 AM) 1.9 K/CMM (10/25/14 6:29 AM) 2.6 K/CMM (10/24/14 4:06 AM) Segs-Bands # [1.5-8.1 K/CMM] 0.9 K/CMM *LOW* (10/26/14 6:39 AM) 1.0 K/CMM (10/25/14 6:29 AM) 1.2 K/CMM (10/24/14 4:06 AM) Lymphocytes # [1.0-5.5 K/CMM] 0.6 K/CMM (10/26/14 6:39 AM) 0.6 K/CMM (10/25/14 6:29 AM) 0.7 K/CMM (10/24/14 4:06 AM) Monocytes # [0.0-0.8 K/CMM] 0.3 K/CMM (10/26/14 6:39 AM) 0.3 K/CMM (10/25/14 6:29 AM) 0.3 K/CMM (10/24/14 4:06 AM) Eosinophils # [0.0-0.5 K/CMM] 0.1 K/CMM (10/24/14 4:06 AM) 0.1 K/CMM (10/23/14 4:55 AM) 0.1 K/CMM (10/22/14 4:36 AM) Basophils # [0.0-0.2 K/CMM] 37.0 seconds 8 *HI* (10/21/14 11:00 AM) PTT [22.9-35.8 seconds] 8Interpretive Data: Heparin Therapeutic Range: 57 - 92 Seconds Medications Administered During Your Visit No data available for this section Immunizations No data available for this section Procedures Procedure Type Body Site Date of Procedure Related Diagnosis Cholecystectomy Social History Social History Type Response Substance Abuse Use: None Alcohol Use: Never Smoking Status Never smoker, Exposure to Tobacco Smoke None, Cigarette Smoking Last 365 Days No, Reg Smoking Cessation Counseling No Assessment and Plan Extracted from: Title: Clinical Document Author: Kiran David MD Date: 10/27/14 [facility] Daily Progress Note [facility] Kiran David MD SUBJECTIVE: Pt relates some bladder spasms. OBJECTIVE: Vitals and Temp: VitalsTmp(F)[id number] 10/27 20:[id number]--- 10/27 16:5597.414027/7821------ 10/27 11:4798.607553/016319--- 10/27 07:3098.480538/064817--- 10/27 04:0098.364421/106657--- 24 Hr Tmax: 98.5F (36.94c) at 10/27 20:00Vital Signs are the last 5 in the past 48 hours. Input/Output RecordInOutBal 12/1124hr Tot 325 0 325 12/1024hr Tot [phone] Labs (Last four charted values) WBC 4.2(OCT 26)3.8(OCT 25)4.7(OCT 24)6.9(OCT 23) Hgb L 11.4(OCT 26)L 10.9(OCT 25)L 10.6(OCT 24)L 10.7(OCT 23) Hct L 35.1(OCT 26)L 33.5(OCT 25)L 31.9(OCT 24)L 32.2(OCT 23) Plt 308(OCT 26)270(OCT 25)227(OCT 24)252(OCT 23) Na L 134(OCT 26)137(OCT 25)137(OCT 24)136(OCT 23) K 3.6(OCT 26)3.6(OCT 25)3.6(OCT 24)L 3.3(OCT 23) CO2 25(OCT 26)27(OCT 25)27(OCT 24)29(OCT 23) Cl 99(OCT 26)101(OCT 25)102(OCT 24)100(OCT 23) Cr 0.7(OCT 26)0.7(OCT 25)0.7(OCT 24)0.6(OCT 23) BUN L 3(OCT 26)L 5(OCT 25)L 6(OCT 24)L 6(OCT 23) Glucose Random H 313(OCT 26)H 386(OCT 25)H 329(OCT 24)H 256(OCT 23) Mg L 1.7(OCT 22) Ca L 8.2(OCT 26)L 7.5(OCT 25)L 7.4(OCT 24)L 7.5(OCT 23) PTT H 37.0(OCT 21) Troponin <0.02(OCT 20) CK MB <0.5(OCT 20) Total CK 33(OCT 20) Medications Scheduled Meds (9):heparin, hydrALAZINE (hydrALAZINE 25 mg oral tablet), insulin aspart (NovoLOG FlexPen), insulin detemir (Levemir), linezolid (Zyvox), lisinopril, oxybutynin, pantoprazole (Protonix), phenazopyridine (Pyridium) Unscheduled Meds: None PRN Meds (26):Dextrose 50% in Water IV (Dextrose 50% Syringe), Dextrose 50% in Water IV (Dextrose 50% Syringe), acetaminophen-codeine (Tylenol with Codeine #3 oral tablet), acetaminophen-codeine (acetaminophen-codeine 300 mg-30 mg oral tablet), calcium gluconate + Sodium Chloride 0.9% IV 100 mL, calcium gluconate + Sodium Chloride 0.9% IV 150 mL, glucagon, insulin aspart, insulin aspart, insulin aspart, insulin aspart, insulin aspart, magnesium oxide, magnesium sulfate, magnesium sulfate, morphine Sulfate, ondansetron, ondansetron (Zofran), potassium chloride, potassium chloride, potassium chloride, potassium phosphate + Sodium Chloride 0.9% IV 250 mL, potassium phosphate + Sodium Chloride 0.9% IV 250 mL, potassium phosphate-sodium phosphate (potassium phosphate-sodium phosphate 250 mg-278 mg-164 mg oral powder), sodium phosphate + Dextrose 5% in Water IV 250 mL, sodium phosphate + Dextrose 5% in Water IV 250 mL One Time Meds: None Continuous Infusions (1):Sodium Chloride 0.9% IV 1,000 mL (NS 1,000 mL) EXAM: Gen: Awake, alert, oriented X3 HEENT: PERRL, EOMI, NC/AT, MMM Neck: Supple without bruit or jvd. ROM intact Lungs: CTAB Heart: S1/S2, RRR Abd: Positive bowel sounds, nt/nd Ext: No CCE ASSESSMENT & PLAN: Complicated VRE UTI Diarrhea. Diabetes. Hypokalemia. Hypertension Bladder spasms. Continue IV Zyvox for VRE UTI Continue Heparin for DVT prophylaxis. Labile BG's noted. Insulin recently adjusted. Monitor response and adjust insulin accordingly. Pain and nausea medicine as needed. Pyridium for bladder spasms.
--- OUTSIDE RECORDS SUMMARY | 2019-03-23 18:39 | XMS REPORT | Summary of Care ---
Author Author [facility] Organization [facility] Address Unknown Phone Unavailable Encounter KENROY Aguayo(JOVANNY) [id number] Date(s): 02/06/16 - 02/06/16 [facility] [address] [place] [address]- [phone] Discharge Disposition: Home Attending Physician: Chin Marin MD Referring Physician: Chin Marin MD Vital Signs No data available for [...] VRE(Confirmed)6 Active 1heart 2Data migrated from [employer] on 07/11/15. - in urine 4Problem added [...]
--- OUTSIDE RECORDS SUMMARY | 2019-03-23 18:39 | XMS REPORT | Summary of Care ---
Author Author [facility] Organization [facility] Address Unknown Phone Unavailable Encounter KENROY Aguayo(JOVANNY) [id number] Date(s): 02/14/16 - 02/21/16 [facility] [address] [place] [address]- Discharge Disposition: Home Attending Physician: Caesar Klein MD Admitting Physician: Caesar Klein MD Vital Signs 1 2 3 Most recent to oldest [Reference Range]: 165.1 cm (02/15/16 4:56 AM) 165.1 cm (02/14/16 11:54 PM) Height 97.6 DegF (02/21/16 11:49 AM) 97.9 DegF (02/21/16 8:16 AM) 97.9 DegF (02/21/16 4:30 AM) Temperature Oral [96.4-99.1 DegF] 171/98 mmHg *HI* (02/21/16 11:49 AM) 181/97 mmHg *HI* (02/21/16 8:16 AM) 134/71 mmHg (02/21/16 4:30 AM) Blood Pressure [90-140/60-90 mmHg] 20 BRMIN (02/21/16 11:49 AM) 18 BRMIN (02/21/16 8:16 AM) 17 BRMIN (02/21/16 4:30 AM) Respiratory Rate [14-20 BRMIN] 75 bpm (02/21/16 11:49 AM) 77 bpm (02/21/16 8:16 AM) 77 bpm (02/21/16 4:30 AM) Peripheral Pulse Rate [60-100 bpm] 121.364 kg (02/15/16 4:56 AM) 118.182 kg (02/14/16 11:54 PM) Weight 44.52 m2 (02/15/16 4:56 AM) 43.36 m2 (02/14/16 11:54 PM) Body Mass Index Problem List Condition [...] TAB, Q4H, Dosing Weight 118.182, kg, PRN Pa in 1-3/Temp > 100.4 F, Start date: 02/15/16 4:41:00, Duration: 30 day, Stop date: 03/16/16 4:40:00 Notes: Do not exceed 4 gm/day. (Same as: Tylenol) Start Date: 02/15/16 Stop Date: 02/21/16 Status: Discontinued bisacodyl 20 mg, 4 tab, Route: PO, Drug form: ECTAB, ONCE, Dosing Weight 121.364, kg, give at 2100, Start date: 02/16/16 21:00:00, Stop date: 02/16/16 21:00:00 Notes: (Same As: Dulcolax, Correctol) (Do Not Crush) "Do Not Crush" Start Date: 02/16/16 Stop Date: 02/16/16 Status: Completed cefTRIAXone + Sodium Chloride 0.9% IV 100 mL 1 gm, Route: IVPB, Q24H, Dosing Weight 118.182, kg, Priority: STAT, Start date: 02/15/16 4:41:00, Duration: 30 day, Stop date: 03/15/16 4:41:00 Notes: (Same As: Rocephin).Use with 100 mL NS and infuse over 30 min MEDICA TION WASTE Product Size: 1000 mgProduct Wasted: ___ mg Start Date: 02/15/16 Stop Date: 02/21/16 Status: Discontinued Citrate of Magnesia 300 ml, Route: PO, Drug Form: LIQ, Dosing Weight 121.364, kg, ONCE, Routine, Sta rt date: 02/16/16 14:50:00, Stop date: 02/16/16 14:50:00 Notes: (Same as: Citrate of Magnesia) Start Date: 02/16/16 Stop Date: 02/16/16 Status: Completed Citrate of Magnesia 300 ml, Route: PO, Drug Form: LIQ, Dosing Weight 121.364, kg, ONCE, NOW, Start d ate: 02/16/16 8:25:00, Stop date: 02/16/16 8:25:00 Notes: (Same as: Citrate of Magnesia) Start Date: 02/16/16 Stop Date: 02/16/16 Status: Deleted Dextrose 50% Syringe 25 gm, 50 mL, Route: IVP, Drug Form: INJ, Dosing Weight 118.182, kg, PRN, PRN Bl ood Glucose Results, Start date: 02/15/16 4:41:00, Duration: 30 day, Stop date: 03/16/16 4:40:00 Start Date: 02/15/16 Stop Date: 02/21/16 Status: Discontinued Dextrose 50% Syringe 12.5 gm, 25 mL, Route: IVP, Drug Form: INJ, Dosing Weight 118.182, kg, PRN, PRN Blood Glucose Results, Start date: 02/15/16 4:41:00, Duration: 30 day, Stop date : 03/16/16 4:40:00 Start Date: 02/15/16 Stop Date: 02/21/16 Status: Discontinued dicyclomine 20 mg, 1 tab, Route: PO, Drug form: TAB, QID, Dosing Weight 121.364, kg, Start d ate: 02/17/16 13:00:00, Duration: 30 day, Stop date: 03/18/16 9:00:00 Notes: (Same as: Bentyl) Start Date: 02/17/16 Stop Date: 02/21/16 Status: Discontinued dicyclomine 20 mg oral tablet 20 mg=1 tab, PO, QID, # 120 tab, 0 Refill(s) Start Date: 02/21/16 Status: Ordered docusate 100 mg, 1 cap, Route: PO, Drug form: CAP, BID, Dosing Weight 118.182, kg, PRN Co nstipation, Start date: 02/15/16 4:41:00, Duration: 30 day, Stop date: 03/16/16 4:40:00 Notes: (Same as: Colace) (Do Not Crush) Start Date: 02/15/16 Stop Date: 02/21/16 Status: Discontinued enoxaparin 40 mg, 0.4 mL, Route: SUB-Q, Drug form: INJ, [id number], Dosing Weight 121.364, kg , Consider for obese patients, Start date: 02/15/16 16:00:00, Duration: 30 day, Stop date: 03/16/16 8:00:00 Notes: (Same as: Lovenox) Start Date: 02/15/16 Stop Date: 02/21/16 Status: Discontinued gabapentin 300 mg oral capsule 300 mg=1 cap, PO, TID, 0 Refill(s) Start Date: 02/15/16 Status: Ordered gabapentin 300 mg oral capsule 300 mg, 1 cap, Route: PO, Drug form: CAP, TID, Dosing Weight 121.364, kg, Start date: 02/15/16 17:00:00, Duration: 30 day, Stop date: 03/16/16 13:00:00 Notes: (Same as: Neurontin) Start Date: 02/15/16 Stop Date: 02/21/16 Status: Discontinued glimepiride 2 mg, 1 tab, Route: PO, Drug form: TAB, Breakfast, Dosing Weight 121.364, kg, St art date: 02/16/16 8:00:00, Duration: 30 day, Stop date: 03/16/16 8:00:00 Notes: (Same as: Amaryl) Start Date: 02/16/16 Stop Date: 02/21/16 Status: Discontinued glimepiride 2 mg oral tablet 2 mg=1 tab, PO, Breakfast, # 90 tab, 0 Refill(s) Start Date: 02/15/16 Status: Ordered glucagon 1 mg, Route: IM, Drug form: PDR/INJ, PRN, Dosing Weight 118.182, kg, PRN Blood G lucose Results, Start date: 02/15/16 4:41:00, Duration: 30 day, Stop date: 03/16 4:40:00 Start Date: 02/15/16 Stop Date: 02/21/16 Status: Discontinued Humalog 20 unit, Route: SUB-Q, Drug form: SOLN, TID-Before Meals, Dosing Weight 121.364, kg, Start date: 02/15/16 16:30:00, Duration: 30 day, Stop date: 03/16/16 11:30: 00 Start Date: 02/15/16 Stop Date: 02/15/16 Status: Deleted Humalog 100 units/mL 20 unit, SUB-Q, TID-Before Meals, 0 Refill(s) Start Date: 02/15/16 Status: Ordered hydrALAZINE 25 mg oral tablet 25 mg, 1 tab, Route: PO, Drug form: TAB, Q8H, Dosing Weight 121.364, kg, Start d ate: 02/21/16 16:00:00, Duration: 30 day, Stop date: 03/22/16 8:00:00 Notes: (Same as: Apresoline) May interfere w/enteral feedings Take With Food. Start Date: 02/21/16 Stop Date: 02/21/16 Status: Discontinued insulin aspart 4 unit, 0.04 mL, Route: SUB-Q, Drug form: SOLN, TID-Before Meals, Dosing Weight 118.182, kg, PRN Blood Glucose Results, Start date: 02/15/16 4:41:00, Duration: 30 day, Stop date: 03/16/16 4:40:00 Notes: Roll in palms of hands gently; Do not shake vigorously. (Same as: NovoLO G)"single patient use only"WASTE: F/P - Black; E - Municipal Trash Bin Stable f or 28 days at room temperature.Expires in days from Date Start Date: 02/15/16 Stop Date: 02/21/16 Status: Discontinued insulin aspart 2 unit, 0.02 mL, Route: SUB-Q, Drug form: SOLN, TID-Before Meals, Dosing Weight 118.182, kg, PRN Blood Glucose Results, Start date: 02/15/16 4:41:00, Duration: 30 day, Stop date: 03/16/16 4:40:00 Notes: Roll in palms of hands gently; Do not shake vigorously. (Same as: Manuel Garcia)"single patient use only"WASTE: F/P - Black; E - Municipal Trash Bin Stable f or 28 days at room temperature.Expires in days from Date Start Date: 02/15/16 Stop Date: 02/21/16 Status: Discontinued insulin aspart 8 unit, 0.08 mL, Route: SUB-Q, Drug form: SOLN, TID-Before Meals, Dosing Weight 118.182, kg, PRN Blood Glucose Results, Start date: 02/15/16 4:41:00, Duration: 30 day, Stop date: 03/16/16 4:40:00 Notes: Roll in palms of hands gently; Do not shake vigorously. (Same as: Manuel Garcia)"single patient use only"WASTE: F/P - Black; E - Municipal Trash Bin Stable f or 28 days at room temperature.Expires in days from Date Start Date: 02/15/16 Stop Date: 02/21/16 Status: Discontinued insulin aspart 6 unit, 0.06 mL, Route: SUB-Q, Drug form: SOLN, TID-Before Meals, Dosing Weight 118.182, kg, PRN Blood Glucose Results, Start date: 02/15/16 4:41:00, Duration: 30 day, Stop date: 03/16/16 4:40:00 Notes: Roll in palms of hands gently; Do not shake vigorously. (Same as: Manuel Garcia)"single patient use only"WASTE: F/P - Black; E - Municipal Trash Bin Stable f or 28 days at room temperature.Expires in days from Date Start Date: 02/15/16 Stop Date: 02/21/16 Status: Discontinued insulin aspart 10 unit, 0.1 mL, Route: SUB-Q, Drug form: SOLN, TID-Before Meals, Dosing Weight 118.182, kg, PRN Blood Glucose Results, Start date: 02/15/16 4:41:00, Duration: 30 day, Stop date: 03/16/16 4:40:00 Notes: Roll in palms of hands gently; Do not shake vigorously. (Same as: NovoLO G)"single patient use only"WASTE: F/P - Black; E - Municipal Trash Bin Stable f or 28 days at room temperature.Expires in days from Date Start Date: 02/15/16 Stop Date: 02/21/16 Status: Discontinued Insulin regular 5 unit, Route: IV, ONCE, Dosing Weight 118.182, kg, Priority: STAT, Start date: 02/15/16 3:04:00, Stop date: 02/15/16 3:04:00 Start Date: 02/15/16 Stop Date: 02/15/16 Status: Completed Levemir FlexPen 60 unit, 0.6 mL, Route: SUB-Q, Drug form: INJ, Bedtime, Dosing Weight 121.364, k g, Start date: 02/15/16 21:00:00, Duration: 30 day, Stop date: 03/15/16 21:00:00 Notes: Same as Tonyir not hold insulin without contacting prescriberWASTE: F/ P - Black; E - Municipal Trash Bin "single patient use only" Start Date: 02/15/16 Stop Date: 02/21/16 Status: Discontinued lisinopril 30 mg, 3 tab, Route: PO, Drug form: TAB, Daily, Dosing Weight 121.364, kg, Start date: 02/16/16 9:00:00, Duration: 30 day, Stop date: 03/16/16 9:00:00 Notes: (Same as: Krys Guidryrihao) Start Date: 02/16/16 Stop Date: 02/21/16 Status: Discontinued lisinopril 30 mg oral tablet 30 mg=1 tab, PO, Daily, # 30 tab, 0 Refill(s) Start Date: 02/15/16 Status: Ordered Macrobid 100 mg oral capsule 100 mg=1 cap, PO, BID, # 60 cap, 0 Refill(s) Start Date: 02/21/16 Stop Date: 02/21/16 Status: Completed magnesium citrate 300 ml, Route: PO, Drug Form: LIQ, Dosing Weight 121.364, kg, ONCE, give at 2100 , Start date: 02/16/16 21:00:00, Stop date: 02/16/16 21:00:00 Notes: (Same as: Citrate of Magnesia) Start Date: 02/16/16 Stop Date: 02/16/16 Status: Completed morphine Sulfate 4 mg, Route: IVP, Drug form: INJ, ONCE, Dosing Weight 118.182, kg, Priority: STA T, Start date: 02/15/16 1:29:00, Stop date: 02/15/16 1:29:00 Start Date: 02/15/16 Stop Date: 02/15/16 Status: Completed morphine Sulfate 4 mg, 2 mL, Route: IVP, Drug form: INJ, Q4H, Dosing Weight 118.182, kg, PRN Pain Score 7-10, Start date: 02/15/16 4:41:00, Duration: 30 day, Stop date: 03/16/16 4:40:00 Notes: (Same as:MORPhine Sulfate) Start Date: 02/15/16 Stop Date: 02/21/16 Status: Discontinued NexIUM 40 mg, Route: PO, Drug form: ECCAP, Daily, Dosing Weight 121.364, kg, Start date : 02/16/16 9:00:00, Duration: 30 day, Stop date: 03/16/16 9:00:00 Start Date: 02/16/16 Stop Date: 02/15/16 Status: Deleted NovoLOG FlexPen 25 unit, 0.25 mL, Route: SUB-Q, Drug form: SOLN, TID-Meals, Start date: 02/15/16 17:00:00, Stop date: 03/16/16 12:00:00 Notes: Roll in palms of hands gently; Do not shake vigorously. (Same as: Manuel Garcia)"single patient use only"WASTE: F/P - Black; E - Municipal Trash Bin Stable f or 28 days at room temperature.Expires in days from Date Start Date: 02/15/16 Stop Date: 02/21/16 Status: Discontinued ondansetron 4 mg, 2 mL, Route: IVP, Drug form: INJ, Q6H, Dosing Weight 118.182, kg, PRN Naus ea & Vomiting, Start date: 02/15/16 4:41:00, Duration: 30 day, Stop date: 03/16/16 4:40:00 Notes: (Same as: Jeremiah) MEDICATION WASTE Product Size: 4 mgProduct Was yahir: ___ mg Start Date: 02/15/16 Stop Date: 02/21/16 Status: Discontinued pantoprazole 40 mg oral enteric coated tablet 40 mg=1 tab, PO, Before Dinner, # 30 tab, 0 Refill(s) Start Date: 02/21/16 Status: Ordered Protonix 40 mg, 1 tab, Route: PO, Drug form: ECTAB, Before Dinner, Start date: 02/15/16 1 6:30:00, Duration: 30 day, Stop date: 03/15/16 16:30:00 Notes: Tablet should not be chewed or crushed.(Same as: Protonix) Start Date: 02/15/16 Stop Date: 02/21/16 Status: Discontinued Reglan 10 mg, 2 mL, Route: IVP, Drug form: INJ, Q6H, Dosing Weight 121.364, kg, Start d ate: 02/15/16 18:00:00, Duration: 30 day, Stop date: 03/16/16 14:00:00 Notes: (Same as: Reglan) Start Date: 02/15/16 Stop Date: 02/21/16 Status: Discontinued Rocephin 1 gm, Route: IVPB, Drug form: PDR/INJ, ONCE, Dosing Weight 118.182, kg, Priority : STAT, Start date: 02/15/16 3:17:00, Stop date: 02/15/16 3:17:00 Start Date: 02/15/16 Stop Date: 02/15/16 Status: Completed Saline Flush 0.9% 10 mL, Route: IVP, Drug Form: INJ, Dosing Weight 118.182, kg, PRN, PRN Line Flus h, Start date: 02/15/16 1:15:00, Duration: 30 day, Stop date: 03/16/16 1:14:00 Notes: (Same as: BD Posiflush) Start Date: 02/15/16 Stop Date: 02/15/16 Status: Discontinued Sodium Chloride 0.9% (Bolus) IV 1,000 mL, 1000 ml/hr, Infuse Over: 1 hr, Route: IV, 1,000, Drug form: INJ, ONCE, Priority: STAT, Dosing Weight 118.182 kg, Start date: 02/15/16 3:04:00, Duratio n: 1 doses or times, Stop date: 02/15/16 3:04:00 Start Date: 02/15/16 Stop Date: 02/15/16 Status: Completed Sodium Chloride 0.9% (Bolus) IV 500 mL, 500 ml/hr, Infuse Over: 1 Hour, Route: IV, ONCE, Priority: STAT, Dosing Weight 118.182 kg, Start date: 02/15/16 1:30:00, Duration: 1 doses or times, Sto p date: 02/15/16 1:30:00 Start Date: 02/15/16 Stop Date: 02/15/16 Status: Completed Sodium Chloride 0.9% IV 1,000 mL 1,000 mL, Rate: 75 ml/hr, Infuse over: 13.3 hr, Route: IV, Dosing Weight 118.182 kg, Total Volume: 1,000, Start date: 02/15/16 4:41:00, Duration: 30 day, Stop d ate: 03/16/16 4:40:00 Start Date: 02/15/16 Stop Date: 02/21/16 Status: Discontinued Sodium Chloride 0.9% IV 1,000 mL 1,000 mL, Rate: 25 ml/hr, Infuse over: 40 hr, Route: IV, Dosing Weight 121.364 k g, Total Volume: 1,000, Start date: 02/16/16 8:06:00, Duration: 30 day, Stop rhea e: 03/17/16 8:05:00 Start Date: 02/16/16 Stop Date: 02/16/16 Status: Discontinued Zofran 4 mg, Route: IVP, Drug form: INJ, ONCE, Dosing Weight 118.182, kg, Priority: STA T, Start date: 02/15/16 1:29:00, Stop date: 02/15/16 1:29:00 Start Date: 02/15/16 Stop Date: 02/15/16 Status: Completed Results ELECTROLYTES 1 2 3 Most recent to oldest [Reference Range]: 136 mEq/L (02/21/16 3:28 AM) 139 mEq/L (02/16/16 5:02 AM) 137 mEq/L (02/15/16 1:28 AM) Sodium Lvl [135-145 mEq/L] 3.7 mEq/L (02/21/16 3:28 AM) 3.9 mEq/L (02/16/16 5:02 AM) 3.7 mEq/L (02/15/16 1:28 AM) Potassium Lvl [3.5-5.1 mEq/L] 103 mEq/L (02/21/16 3:28 AM) 104 mEq/L (02/16/16 5:02 AM) 99 mEq/L (02/15/16 1:28 AM) Chloride Lvl [95-109 mEq/L] 26 mEq/L (02/21/16 3:28 AM) 27 mEq/L (02/16/16 5:02 AM) 28 mEq/L (02/15/16 1:28 AM) CO2 [24-32 mEq/L] 10.7 mEq/L (02/21/16 3:28 AM) 11.9 mEq/L (02/16/16 5:02 AM) 13.7 mEq/L (02/15/16 1:28 AM) AGAP [10.0-20.0 mEq/L] CHEM PANEL 1 2 3 Most recent to oldest [Reference Range]: 0.76 mg/dL (02/21/16 3:28 AM) 0.64 mg/dL (02/16/16 5:02 AM) 0.87 mg/dL (02/15/16 1:28 AM) Creatinine Lvl [0.50-1.40 mg/dL] 85 mL/min/1.73m2 1 *NA* (02/21/16 3:28 AM) 96 mL/min/1.73m2 2 *NA* (02/16/16 5:02 AM) 72 mL/min/1.73m2 3 *NA* (02/15/16 1:28 AM) eGFR 19 mg/dL (02/21/16 3:28 AM) 16 mg/dL (02/16/16 5:02 AM) 15 mg/dL (02/15/16 1:28 AM) BUN [7-22 mg/dL] 17 (02/15/16 1:28 AM) B/C Ratio [6-25] 341 mg/dL *HI* (02/21/16 3:28 AM) 321 mg/dL *HI* (02/16/16 5:02 AM) 417 mg/dL 4 *CRIT* (02/15/16 1:28 AM) Glucose Lvl [70-99 mg/dL] 7.9 g/dL (02/15/16 1:28 AM) Total Protein [6.4-8.4 g/dL] 2.9 g/dL *LOW* (02/15/16 1:28 AM) Albumin Lvl [3.5-5.0 g/dL] 5.0 g/dL *HI* (02/15/16 1:28 AM) Globulin [2.0-4.0 g/dL] 0.6 *LOW* (02/15/16 1:28 AM) A/G Ratio [0.7-1.6] 8.0 mg/dL *LOW* (02/21/16 3:28 AM) 7.7 mg/dL *LOW* (02/16/16 5:02 AM) 8.3 mg/dL *LOW* (02/15/16 1:28 AM) Calcium Lvl [8.5-10.5 mg/dL] 28 unit/L (02/15/16 1:28 AM) ALT [0-65 unit/L] 19 unit/L (02/15/16 1:28 AM) AST [0-37 unit/L] 139 unit/L *HI* (02/15/16 1:28 AM) Alk Phos [39-136 unit/L] 0.4 mg/dL (02/15/16 1:28 AM) Bili Total [0.2-1.3 mg/dL] 19 unit/L *LOW* (02/15/16 1:28 AM) Amylase Lvl [25-115 unit/L] 141 unit/L (02/15/16 1:28 AM) Lipase Lvl [73-393 unit/L] 1Result Comment: [...] tiplied by the estimated BMI. 4Result Comment: Critical Result(s) called to melly velez at 02/15/2016 02:11 by lgb. Read back OK. CARDIAC ENZYMES 1 2 3 Most recent to oldest [Reference Range]: 52 unit/L (02/15/16 8:02 PM) 57 unit/L (02/15/16 1:49 PM) 67 unit/L (02/15/16 8:00 AM) Total CK [12-191 unit/L] 1.4 ng/mL (02/15/16 8:02 PM) 1.4 ng/mL (02/15/16 1:49 PM) 2.1 ng/mL (02/15/16 8:00 AM) CK MB [0.5-3.6 ng/mL] 2.7 *HI* (02/15/16 8:02 PM) 2.5 (02/15/16 1:49 PM) 3.1 *HI* (02/15/16 8:00 AM) CK MB Index [0.0-2.5] <0.02 ng/mL (02/15/16 8:02 PM) <0.02 ng/mL (02/15/16 1:49 PM) <0.02 ng/mL (02/15/16 8:00 AM) Troponin-I [0.00-0.40 ng/mL] LIPIDS 1 2 3 Most recent to oldest [Reference Range]: 3.97 (02/17/16 4:10 AM) CHD Risk [3.90-5.80] 155 mg/dL (02/17/16 4:10 AM) Chol [<=199 mg/dL] 145 mg/dL (02/17/16 4:10 AM) Trig [<=149 mg/dL] 39 mg/dL *LOW* (02/17/16 4:10 AM) HDL [>=61 mg/dL] 87 mg/dL (02/17/16 4:10 AM) LDL (Calculated) [<=99 mg/dL] 29 *NA* (02/17/16 4:10 AM) VLDL URINE AND STOOL 1 2 3 Most recent to oldest [Reference Range]: Slight *ABN* (02/15/16 1:43 AM) UA Turbidity [Clear] Yellow *NA* (02/15/16 1:43 AM) UA Color [Yellow] 5.0 (02/15/16 1:43 AM) UA pH [5.0-8.0] 1.031 *HI* (02/15/16 1:43 AM) UA Spec Grav [<=1.030] 500 mg/dL *ABN* (02/15/16 1:43 AM) UA Glucose [Negative mg/dL] Small *ABN* (02/15/16 1:43 AM) UA Blood [Negative] Negative mg/dL *NA* (02/15/16 1:43 AM) UA Ketones [Negative mg/dL] 100 mg/dL *ABN* (02/15/16 1:43 AM) UA Protein [Negative mg/dL] <=1.0 mg/dL *NA* (02/15/16 1:43 AM) UA Urobilinogen [0.1-1.0 mg/dL] Negative *NA* (02/15/16 1:43 AM) UA Bili [Negative] Small *ABN* (02/15/16 1:43 AM) UA Leuk Est [Negative] Positive *ABN* (02/15/16 1:43 AM) UA Nitrite [Negative] 6 /HPF *HI* (02/15/16 1:43 AM) UA WBC [0-5 /HPF] 3 /HPF *HI* (02/15/16 1:43 AM) UA RBC [0-2 /HPF] Occasional /HPF *NA* (02/15/16 1:43 AM) UA Bacteria [None Seen /HPF] Occasional /LPF *NA* (02/15/16 1:43 AM) UA Sq Epi [Few /LPF] HEMATOLOGY 1 2 3 Most recent to oldest [Reference Range]: 4.4 K/CMM (02/21/16 3:28 AM) 3.9 K/CMM (02/16/16 5:02 AM) 5.8 K/CMM (02/15/16 1:28 AM) WBC [3.7-10.4 K/CMM] 4.01 M/CMM *LOW* (02/21/16 3:28 AM) 4.07 M/CMM *LOW* (02/16/16 5:02 AM) 4.56 M/CMM (02/15/16 1:28 AM) RBC [4.20-5.40 M/CMM] 11.8 g/dL *LOW* (02/21/16 3:28 AM) 11.8 g/dL *LOW* (02/16/16 5:02 AM) 13.2 g/dL (02/15/16 1:28 AM) Hgb [12.0-16.0 g/dL] 36.7 % (02/21/16 3:28 AM) 36.7 % (02/16/16 5:02 AM) 41.1 % (02/15/16 1:28 AM) Hct [36.0-48.0 %] 91.4 fL (02/21/16 3:28 AM) 90.2 fL (02/16/16 5:02 AM) 90.2 fL (02/15/16 1:28 AM) MCV [80.0-98.0 fL] 29.4 pg (02/21/16 3:28 AM) 28.9 pg (02/16/16 5:02 AM) 28.9 pg (02/15/16 1:28 AM) MCH [27.0-31.0 pg] 32.2 g/dL (02/21/16 3:28 AM) 32.1 g/dL (02/16/16 5:02 AM) 32.0 g/dL (02/15/16 1:28 AM) MCHC [32.0-36.0 g/dL] 13.5 % (02/21/16 3:28 AM) 13.1 % (02/16/16 5:02 AM) 13.6 % (02/15/16 1:28 AM) RDW [11.5-14.5 %] 159 K/CMM (02/21/16 3:28 AM) 159 K/CMM (02/16/16 5:02 AM) 200 K/CMM (02/15/16 1:28 AM) Platelet [133-450 K/CMM] 10.5 fL *HI* (02/21/16 3:28 AM) 10.5 fL *HI* (02/16/16 5:02 AM) 10.3 fL (02/15/16 1:28 AM) MPV [7.4-10.4 fL] 49.2 % (02/21/16 3:28 AM) 54.4 % (02/16/16 5:02 AM) 58.0 % (02/15/16 1:28 AM) Segs [45.0-75.0 %] 32.9 % (02/21/16 3:28 AM) 28.8 % (02/16/16 5:02 AM) 25.7 % (02/15/16 1:28 AM) Lymphocytes [20.0-40.0 %] 12.7 % *HI* (02/21/16 3:28 AM) 11.3 % (02/16/16 5:02 AM) 12.5 % *HI* (02/15/16 1:28 AM) Monocytes [2.0-12.0 %] 4.3 % *HI* (02/21/16 3:28 AM) 4.5 % *HI* (02/16/16 5:02 AM) 2.9 % (02/15/16 1:28 AM) Eosinophils [0.0-4.0 %] 0.9 % (02/21/16 3:28 AM) 1.0 % (02/16/16 5:02 AM) 0.9 % (02/15/16 1:28 AM) Basophils [0.0-1.0 %] 2.2 K/CMM (02/21/16 3:28 AM) 2.1 K/CMM (02/16/16 5:02 AM) 3.3 K/CMM (02/15/16 1:28 AM) Segs-Bands # [1.5-8.1 K/CMM] 1.5 K/CMM (02/21/16 3:28 AM) 1.1 K/CMM (02/16/16 5:02 AM) 1.5 K/CMM (02/15/16 1:28 AM) Lymphocytes # [1.0-5.5 K/CMM] 0.6 K/CMM (02/21/16 3:28 AM) 0.4 K/CMM (02/16/16 5:02 AM) 0.7 K/CMM (02/15/16 1:28 AM) Monocytes # [0.0-0.8 K/CMM] 0.2 K/CMM (02/21/16 3:28 AM) 0.2 K/CMM (02/16/16 5:02 AM) 0.2 K/CMM (02/15/16 1:28 AM) Eosinophils # [0.0-0.5 K/CMM] 0.1 K/CMM (02/15/16 1:28 AM) Basophils # [0.0-0.2 K/CMM] 13.2 seconds (02/15/16 1:28 AM) PT [12.0-14.7 seconds] 0.97 (02/15/16 1:28 AM) INR [0.85-1.17] 26.4 seconds (02/15/16 1:28 AM) PTT [22.9-35.8 seconds] Immunizations No data available for this section [...] Plan Extracted from: Title: Clinical Document Author: Carson Baker MD Date: 02/21/16 Progress Note - Daily [facility] Completed: Feb, 15:45 by Carson Baker MD RM: 203 - 1P, SE [id number] (: 1955) F Attending: Caesar Klein MDPhone: Service: Internal Medicine Reason for Admission: INTRACTABLE ABDOMINAL PAIN Working DRG: Esophagitis, gastroent & misc digest disorders w/o MCFP Code status: Full Code [Ordered]Current diet: Isolation: Contact [Ordered] Allergies: Januvia, metformin, influenza virus vaccine, inactivated(Influenza virus vaccine) SUBJECTIVE some persistent abdominal pain OBJECTIVE HEENT: Normal Pulmonary: Lungs clear Cardiac: Normal rate and rhythm, no murmurs Abdomen: Soft, tender, no masses, good bowel sounds 24hr Labs 02/20 1152 Glucose FYY324 H 02/20 0633 Glucose QMG249 H 02/20 0328 Glucose Vax514 H BUN19 Creatinine Lvl0.76 Sodium Hzd854 Potassium Lvl3.7 Chloride Mkw721 CO226 AGAP10.7 Calcium Lvl8.0 L eGFR85 WBC4.4 RBC4.01 L Hgb11.8 L Hct36.7 MCV91.4 MCH29.4 MCHC32.2 RDW13.5 Lqbgbcmc454 MPV10.5 H Segs49.2 Nghwexxdg27.7 H Hplaevltbxd53.9 Eosinophils4.3 H Basophils0.9 Segs-Bands #2.2 Lymphocytes #1.5 Monocytes #0.6 Eosinophils #0.2 02/19 2125 Glucose LXW575 H 02/19 1700 Glucose FME272 H 02/19 1218 Glucose HOS809 H Olvera still necessary (Yes/No): Line still necessary (Yes/No): VitalsTmp(F)GapgdAYSQZqM3YQS3 02/20 11:4997.913660/543427--- 02/20 08:1697.768054/431149--- 02/20 04:3097.105544/705684--- 02/20 00:0498.916792/233075--- 02/19 20:0997.712114/653219--- 24 Hr Tmax: 98.1F (36.72c) at 02/20 00:04Vital Signs are the last 5 in the past 48 hours. DateWt(kg)Wt(lb)Ht(cm)Ht(in)Method .36 [id number] 65.00Measured 02/13 (initial)118.18 260.00Estimated .10 65.00Stated I&ORecordInOutBal 02/624hr Tot 4 0 4 02/524hr Tot 710 0 710 Medications (24) Active Scheduled Meds (11): 02/15/16 cefTRIAXone + Sodium Chloride 0.9% IV 100 mL 1 gm IVPB Q24H 200 ml/hr 02/17/16 dicyclomine 20 mg PO QID 02/15/16 enoxaparin 40 mg SUB-Q spksD32P 02/15/16 gabapentin (gabapentin 300 mg oral capsule) 300 mg PO TID 02/16/16 glimepiride 2 mg PO Breakfast 02/21/16 hydrALAZINE (hydrALAZINE 25 mg oral tablet) 25 mg PO Q8H 02/15/16 insulin aspart (NovoLOG FlexPen) 25 unit SUB-Q TID-Meals 02/15/16 insulin detemir (Levemir FlexPen) 60 unit SUB-Q Bedtime 02/16/16 lisinopril 30 mg PO Daily 02/15/16 metoclopramide (Reglan) 10 mg IVP Q6H 02/15/16 pantoprazole (Protonix) 40 mg PO Before Dinner Unscheduled Meds: None PRN Meds (12): 02/15/16 Dextrose 50% in Water IV (Dextrose 50% Syringe) 12.5 gm IVP PRN 02/15/16 Dextrose 50% in Water IV (Dextrose 50% Syringe) 25 gm IVP PRN 02/15/16 acetaminophen 650 mg PO Q4H 02/15/16 docusate 100 mg PO BID 02/15/16 glucagon 1 mg IM PRN 02/15/16 insulin aspart 2 unit SUB-Q TID-Before Meals 02/15/16 insulin aspart 4 unit SUB-Q TID-Before Meals 02/15/16 insulin aspart 6 unit SUB-Q TID-Before Meals 02/15/16 insulin aspart 8 unit SUB-Q TID-Before Meals 02/15/16 insulin aspart 10 unit SUB-Q TID-Before Meals 02/15/16 morphine Sulfate 4 mg IVP Q4H 02/15/16 ondansetron 4 mg IVP Q6H One Time Meds: None Continuous Infusions (1): 02/15/16 Sodium Chloride 0.9% IV 1,000 mL 1,000 mL 75 ml/hr ASSESSMENT & EXAM Abdominal pain - negative CT, negative SBFT, Negative EGD No cause of abd pain noted. Likely musculoskeletal related On dicyclomine Gastroparesis - on reglan PLAN & TREATMENT Cont reglan and dicyclomine
--- OUTSIDE RECORDS SUMMARY | 2019-03-23 18:39 | XMS REPORT | Summary of Care ---
Author Author [facility] Organization [facility] Address Unknown Phone Unavailable Encounter KENROY Aguayo(JOVANNY) [id number] Date(s): 09/21/15 - 09/22/15 [facility] [address] [place] [address] [phone] Discharge Diagnosis: Abscess Discharge Disposition: Home Attending Physician: Steven Monteiro MD Vital Signs Most recent to 1 2 oldest [Reference Range]: Temperature Oral 98.4 DegF 98.1 DegF [96.4-99.1 DegF] (09/22/15 12:38 AM) (09/21/15 10:05 PM) Blood Pressure 139/80 mmHg 143/84 mmHg [90-140/60-90 mmHg] (09/22/15 12:38 AM) *HI* (09/21/15 10:05 PM) Respiratory Rate 20 BRMIN 20 BRMIN [14-20 BRMIN] (09/22/15 12:38 AM) (09/21/15 10:05 PM) Peripheral Pulse 88 bpm 98 bpm Rate [60-100 bpm] (09/22/15 12:38 AM) (09/21/15 10:05 PM) Weight 118.636 kg (09/21/15 10:05 PM) Problem List Condition Effective Dates Status [...] Active VRE(Confirmed)6 Active 1heart 2Data migrated from [employer] on 07/11/15. 306/10/01 - in urine 4Problem added by Discern Expert. 5Data migrated from [employer] on 07/11/15. 6Problem added by Discern Expert. Allergies, Adverse Reactions, Alerts Substance Reaction Severity Status influenza virus vaccine, Influenza virus vaccine Active inactivated Januvia Active metformin Active Medications acetaminophen-hydrocodone 325 mg-5 mg oral tablet 1 tab, Route: PO, Dosing Weight 118.636, kg, ONCE, STAT, Start date: 09/21/15 23 :07:00, Stop date: 09/21/15 23:07:00 Start Date: 09/21/15 Stop Date: 09/21/15 Status: Completed Bactrim DS 800 mg- 160 mg oral tablet 1 tab, PO, BID, X 10 day, # 20 tab, 0 Refill(s) Start Date: 09/22/15 Stop Date: 10/02/15 Status: Ordered Keflex 500 mg oral capsule 500 mg=1 cap, PO, QID, X 10 day, # 40 cap, 0 Refill(s) Start Date: 09/22/15 Stop Date: 10/02/15 Status: Ordered lidocaine-epi 1%-1:[id number] 1 mL, Route: SUB-Q, Drug Form: INJ, Dosing Weight 118.636, kg, ONCE, STAT, Start date: 09/21/15 23:07:00, Stop date: 09/21/15 23:07:00 Notes: (Same as: Xylocaine w/Epinephrine) Start Date: 09/21/15 Stop Date: 09/21/15 Status: Ordered Ultram 50 mg oral tablet 50 mg=1 tab, PO, Q6H, PRN pain, X 4 day, # 16 tab, 0 Refill(s) Start Date: 09/22/15 Stop Date: 09/26/15 Status: Ordered Results No data available for [...]
--- OUTSIDE RECORDS SUMMARY | 2019-03-23 18:39 | XMS REPORT | Summary of Care ---
Author Author [facility] Organization [facility] Address Unknown Phone Unavailable Encounter HQ Olivier(JOVANNY) [id number] Date(s): 05/01/16 - 05/02/16 [facility] [address] [place] [address]- Discharge Diagnosis: Urinary tract infection, site not specified Discharge Disposition: Home Attending Physician: Chelsey Ojeda DO Vital Signs 1 2 3 Most recent to oldest [Reference Range]: 165.1 cm (05/01/16 9:22 PM) Height 98.8 DegF (05/02/16 1:40 AM) 98.4 DegF (05/01/16 9:22 PM) Temperature Oral [96.4-99.1 DegF] 140/78 mmHg (05/02/16 1:40 AM) 170/96 mmHg *HI* (05/01/16 9:22 PM) Blood Pressure [90-140/60-90 mmHg] 109 mmHg (05/02/16 12:05 AM) Systolic Blood Pressure [90-140 mmHg] 67 mmHg (05/02/16 12:05 AM) Diastolic Blood Pressure [60-90 mmHg] 18 BRMIN (05/02/16 1:40 AM) 18 BRMIN (05/02/16 12:05 AM) 97 BRMIN *HI* (05/01/16 9:22 PM) Respiratory Rate [14-20 BRMIN] 78 bpm (05/02/16 1:40 AM) 82 bpm (05/02/16 12:05 AM) 18 bpm *LOW* (05/01/16 9:22 PM) Peripheral Pulse Rate [60-100 bpm] 113.636 kg (05/01/16 9:22 PM) Weight 41.69 m2 (05/01/16 9:22 PM) Body Mass Index Problem List Condition [...] Active inactivated Januvia Active metformin Active Medications Cipro 500 mg oral tablet 500 mg=1 tab, PO, Q12H, X 7 day, # 14 tab, 0 Refill(s) Start Date: 05/02/16 Stop Date: 05/09/16 Status: Ordered Rocephin 1 gm, Route: IVPB, Drug form: PDR/INJ, ONCE, Dosing Weight 113.636, kg, Priority : STAT, Start date: 05/02/16 0:44:00 CDT, Stop date: 05/02/16 0:44:00 CDT Start Date: 05/02/16 Stop Date: 05/02/16 Status: Completed Results ELECTROLYTES Most recent to 1 oldest [Reference Range]: Sodium Lvl [135-145 135 mEq/L mEq/L] (05/01/16 10:37 PM) Potassium Lvl 4.6 mEq/L [3.5-5.1 mEq/L] (05/01/16 10:37 PM) Chloride Lvl [95-109 97 mEq/L mEq/L] (05/01/16 10:37 PM) CO2 [24-32 mEq/L] 29 mEq/L (05/01/16 10:37 PM) AGAP [10.0-20.0 13.6 mEq/L mEq/L] (05/01/16 10:37 PM) CHEM PANEL Most recent to 1 oldest [Reference Range]: Creatinine Lvl 0.87 mg/dL [0.50-1.40 mg/dL] (05/01/16 10:37 PM) eGFR 71 mL/min/1.73m2 1 *NA* (05/01/16 10:37 PM) BUN [7-22 mg/dL] 21 mg/dL (05/01/16 10:37 PM) B/C Ratio [6-25] 24 (05/01/16 10:37 PM) Glucose Lvl [70-99 387 mg/dL mg/dL] *HI* (05/01/16 10:37 PM) Total Protein 8.3 g/dL [6.4-8.4 g/dL] (05/01/16 10:37 PM) Albumin Lvl [3.5-5.0 3.0 g/dL g/dL] *LOW* (05/01/16 10:37 PM) Globulin [2.0-4.0 5.3 g/dL g/dL] *HI* (05/01/16 10:37 PM) A/G Ratio [0.7-1.6] 0.6 *LOW* (05/01/16 10:37 PM) Calcium Lvl 9.0 mg/dL [8.5-10.5 mg/dL] (05/01/16 10:37 PM) ALT [0-65 unit/L] 28 unit/L (05/01/16 10:37 PM) AST [0-37 unit/L] 23 unit/L (05/01/16 10:37 PM) Alk Phos [39-136 146 unit/L unit/L] *HI* (05/01/16 10:37 PM) Bili Total [0.2-1.3 0.6 mg/dL mg/dL] (05/01/16 10:37 PM) 1Result Comment: The eGFR is calculated [...] be mul tiplied by the estimated BMI. URINE AND STOOL Most recent to 1 oldest [Reference Range]: UA Turbidity [Clear] Marked *ABN* (05/01/16 11:45 PM) UA Color [Yellow] Yellow *NA* (05/01/16 11:45 PM) UA pH [5.0-8.0] 6.0 (05/01/16 11:45 PM) UA Spec Grav 1.032 [<=1.030] *HI* (05/01/16 11:45 PM) UA Glucose [Negative 500 mg/dL mg/dL] *ABN* (05/01/16 11:45 PM) UA Blood [Negative] Moderate *ABN* (05/01/16 11:45 PM) UA Ketones [Negative 20 mg/dL mg/dL] *ABN* (05/01/16 11:45 PM) UA Protein [Negative 100 mg/dL mg/dL] *ABN* (05/01/16 11:45 PM) UA Urobilinogen <=1.0 mg/dL [0.1-1.0 mg/dL] *NA* (05/01/16 11:45 PM) UA Bili [Negative] Negative *NA* (05/01/16 11:45 PM) UA Leuk Est Large [Negative] *ABN* (05/01/16 11:45 PM) UA Nitrite Negative [Negative] (05/01/16 11:45 PM) UA WBC [0-5 /HPF] 169 /HPF *HI* (05/01/16 11:45 PM) UA RBC [0-2 /HPF] 9 /HPF *HI* (05/01/16 11:45 PM) UA Bacteria [None Occasional /HPF Seen /HPF] *NA* (05/01/16 11:45 PM) UA Sq Epi [Few /LPF] Moderate /LPF *ABN* (05/01/16 11:45 PM) HEMATOLOGY Most recent to 1 oldest [Reference Range]: WBC [3.7-10.4 K/CMM] 6.7 K/CMM (05/01/16 10:37 PM) RBC [4.20-5.40 4.66 M/CMM M/CMM] (05/01/16 10:37 PM) Hgb [12.0-16.0 g/dL] 13.5 g/dL (05/01/16 10:37 PM) Hct [36.0-48.0 %] 41.9 % (05/01/16 10:37 PM) MCV [80.0-98.0 fL] 89.9 fL (05/01/16 10:37 PM) MCH [27.0-31.0 pg] 28.9 pg (05/01/16 10:37 PM) MCHC [32.0-36.0 32.2 g/dL g/dL] (05/01/16 10:37 PM) RDW [11.5-14.5 %] 14.0 % (05/01/16 10:37 PM) Platelet [133-450 206 K/CMM K/CMM] (05/01/16 10:37 PM) MPV [7.4-10.4 fL] 10.0 fL (05/01/16 10:37 PM) Segs [45.0-75.0 %] 57.8 % (05/01/16 10:37 PM) Lymphocytes 27.6 % [20.0-40.0 %] (05/01/16 10:37 PM) Monocytes [2.0-12.0 11.1 % %] (05/01/16 10:37 PM) Eosinophils [0.0-4.0 2.7 % %] (05/01/16 10:37 PM) Basophils [0.0-1.0 0.8 % %] (05/01/16 10:37 PM) Segs-Bands # 3.9 K/CMM [1.5-8.1 K/CMM] (05/01/16 10:37 PM) Lymphocytes # 1.9 K/CMM [1.0-5.5 K/CMM] (05/01/16 10:37 PM) Monocytes # [0.0-0.8 0.7 K/CMM K/CMM] (05/01/16 10:37 PM) Eosinophils # 0.2 K/CMM [0.0-0.5 K/CMM] (05/01/16 10:37 PM) Basophils # [0.0-0.2 0.1 K/CMM K/CMM] (05/01/16 10:37 PM) Immunizations No data available for this [...]
--- OUTSIDE RECORDS SUMMARY | 2019-03-23 18:39 | XMS REPORT | Summary of Care ---
Author Author [facility] Organization [facility] Address Unknown Phone Unavailable Encounter HQ Olivier(JOVANNY) [id number] Date(s): 09/01/16 - 09/01/16 [facility] [address] [place] [address] [phone] Discharge Disposition: Home or Self Care Attending Physician: Steven Monteiro MD Vital Signs 1 2 3 Most recent to oldest [Reference Range]: 165.1 cm (09/01/16 1:45 PM) Height 98 DegF (09/01/16 8:58 PM) 98 DegF (09/01/16 7:01 PM) 98.0 DegF (09/01/16 6:20 PM) Temperature Oral [96.4-99.1 DegF] 111/60 mmHg (09/01/16 8:58 PM) 128/52 mmHg (09/01/16 8:05 PM) 143/78 mmHg *HI* (09/01/16 7:01 PM) Blood Pressure [90-140/60-90 mmHg] 17 BRMIN (09/01/16 8:58 PM) 17 BRMIN (09/01/16 8:05 PM) 18 BRMIN (09/01/16 7:01 PM) Respiratory Rate [14-20 BRMIN] 78 bpm (09/01/16 8:58 PM) 78 bpm (09/01/16 8:05 PM) 76 bpm (09/01/16 7:01 PM) Peripheral Pulse Rate [60-100 bpm] 120.455 kg (09/01/16 1:45 PM) Weight 44.19 m2 (09/01/16 1:45 PM) Body Mass Index Problem List Condition [...] Active VRE(Confirmed)6 Active 1heart 2Data migrated from [employer] on 07/11/15. - in urine 4Problem added by Discern Expert. 5Data migrated from [employer] on 07/11/15. 6Problem added by Discern Expert. Allergies, Adverse Reactions, Alerts Substance Reaction Severity Status influenza virus vaccine, Influenza virus vaccine Active inactivated Januvia Active metformin Active Medications Flexeril 10 mg, Route: PO, ONCE, Dosing Weight 120.455, kg, Priority: STAT, Start date: 17:57:00 CDT, Stop date: 09/01/16 17:57:00 CDT Start Date: 09/01/16 Stop Date: 09/01/16 Status: Completed Insulin regular 10 unit, Route: IVP, ONCE, Dosing Weight 120.455, kg, Priority: STAT, Start date : 09/01/16 17:57:00 CDT, Stop date: 09/01/16 17:57:00 CDT Start Date: 09/01/16 Stop Date: 09/01/16 Status: Completed morphine Sulfate 4 mg, Route: IVP, ONCE, Dosing Weight 113.636, kg, Priority: STAT, Start date: 13:48:00 CDT, Stop date: 09/01/16 13:48:00 CDT Start Date: 09/01/16 Stop Date: 09/01/16 Status: Completed morphine Sulfate 6 mg, Route: IVP, ONCE, Dosing Weight 120.455, kg, Priority: STAT, Start date: 17:57:00 CDT, Stop date: 09/01/16 17:57:00 CDT Start Date: 09/01/16 Stop Date: 09/01/16 Status: Completed Saline Flush 0.9% 10 mL, Route: IVP, Drug Form: INJ, Dosing Weight 113.636, kg, PRN, PRN Line Flus h, Start date: 09/01/16 13:48:00 CDT, Duration: 30 day, Stop date: 10/01/16 12:4 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: (Same as: BD Posiflush) Start Date: 09/01/16 Stop Date: 09/02/16 Status: Discontinued Tylenol with Codeine #3 oral tablet 1 tab, PO, Q4H, PRN Pain, X 3 day, # 18 tab, 0 Refill(s) Start Date: 09/01/16 Stop Date: 09/04/16 Status: Ordered Results ELECTROLYTES Most recent to 1 oldest [Reference Range]: Sodium Lvl [135-145 130 mEq/L mEq/L] *LOW* (09/01/16 5:09 PM) Potassium Lvl 4.3 mEq/L [3.5-5.1 mEq/L] (09/01/16 5:09 PM) Chloride Lvl [95-109 96 mEq/L mEq/L] (09/01/16 5:09 PM) CO2 [24-32 mEq/L] 24 mEq/L (09/01/16 5:09 PM) AGAP [10.0-20.0 14.3 mEq/L mEq/L] (09/01/16 5:09 PM) CHEM PANEL Most recent to 1 oldest [Reference Range]: Creatinine Lvl 1.10 mg/dL [0.50-1.40 mg/dL] (09/01/16 5:09 PM) eGFR 54 mL/min/1.73m2 1 *NA* (09/01/16 5:09 PM) BUN [7-22 mg/dL] 17 mg/dL (09/01/16 5:09 PM) B/C Ratio [6-25] 15 (09/01/16 5:09 PM) Glucose Lvl [70-99 550 mg/dL 2 mg/dL] *CRIT* (09/01/16 5:09 PM) Total Protein 7.6 g/dL [6.4-8.4 g/dL] (09/01/16 5:09 PM) Albumin Lvl [3.5-5.0 2.8 g/dL g/dL] *LOW* (09/01/16 5:09 PM) Globulin [2.7-4.2 4.8 g/dL g/dL] *HI* (09/01/16 5:09 PM) A/G Ratio [0.7-1.6] 0.6 *LOW* (09/01/16 5:09 PM) Calcium Lvl 8.2 mg/dL [8.5-10.5 mg/dL] *LOW* (09/01/16 5:09 PM) ALT [0-65 unit/L] 27 unit/L (09/01/16 5:09 PM) AST [0-37 unit/L] 28 unit/L (09/01/16 5:09 PM) Alk Phos [39-136 140 unit/L unit/L] *HI* (09/01/16 5:09 PM) Bili Total [0.2-1.3 0.1 mg/dL mg/dL] *LOW* (09/01/16 5:09 PM) 1Result Comment: The eGFR is calculated [...] BMI. 2Result Comment: Critical Result(s) called to meg at 09/01/2016 17:47 by_sol. Read back OK. CARDIAC ENZYMES Most recent to 1 oldest [Reference Range]: Total CK [12-191 68 unit/L unit/L] (09/01/16 5:09 PM) CK MB [0.5-3.6 2.0 ng/mL ng/mL] (09/01/16 5:09 PM) CK MB Index 2.9 [0.0-2.5] *HI* (09/01/16 5:09 PM) Troponin-I <0.02 ng/mL [0.00-0.40 ng/mL] (09/01/16 5:09 PM) URINE AND STOOL Most recent to 1 oldest [Reference Range]: UA Turbidity [Clear] Clear (09/01/16 5:21 PM) UA Color Ltyellow *NA* (09/01/16 5:21 PM) UA pH [5.0-8.0] 5.0 (09/01/16 5:21 PM) UA Spec Grav 1.030 [<=1.030] (09/01/16 5:21 PM) UA Glucose [Negative 500 mg/dL mg/dL] *ABN* (09/01/16 5:21 PM) UA Blood [Negative] Small *ABN* (09/01/16 5:21 PM) UA Ketones [Negative Negative mg/dL mg/dL] *NA* (09/01/16 5:21 PM) UA Protein [Negative 100 mg/dL mg/dL] *ABN* (09/01/16 5:21 PM) UA Urobilinogen <=1.0 mg/dL [0.1-1.0 mg/dL] *NA* (09/01/16 5:21 PM) UA Bili [Negative] Negative *NA* (09/01/16 5:21 PM) UA Leuk Est Trace [Negative] *ABN* (09/01/16 5:21 PM) UA Nitrite Negative [Negative] (09/01/16 5:21 PM) UA WBC [0-5 /HPF] 6 /HPF *HI* (09/01/16 5:21 PM) UA RBC [0-2 /HPF] 3 /HPF *HI* (09/01/16 5:21 PM) UA Bacteria [None Occasional /HPF Seen /HPF] *NA* (09/01/16 5:21 PM) UA Sq Epi [Few /LPF] Occasional /LPF *NA* (09/01/16 5:21 PM) HEMATOLOGY Most recent to 1 oldest [Reference Range]: WBC [3.7-10.4 K/CMM] 5.3 K/CMM (09/01/16 5:09 PM) RBC [4.20-5.40 4.63 M/CMM M/CMM] (09/01/16 5:09 PM) Hgb [12.0-16.0 g/dL] 13.8 g/dL (09/01/16 5:09 PM) Hct [36.0-48.0 %] 41.3 % (09/01/16 5:09 PM) MCV [80.0-98.0 fL] 89.3 fL (09/01/16 5:09 PM) MCH [27.0-31.0 pg] 29.9 pg (09/01/16:09 PM) MCHC [32.0-36.0 33.5 g/dL g/dL] (09/01/16:09 PM) RDW [11.5-14.5 %] 13.6 % (09/01/16 5:09 PM) Platelet [133-450 182 K/CMM K/CMM] (09/01/16:09 PM) MPV [7.4-10.4 fL] 10.4 fL (09/01/16 5:09 PM) Segs [45.0-75.0 %] 63.8 % (09/01/16 5:09 PM) Lymphocytes 23.2 % [20.0-40.0 %] (09/01/16 5:09 PM) Monocytes [2.0-12.0 10.3 % %] (09/01/16 5:09 PM) Eosinophils [0.0-4.0 1.5 % %] (09/01/16 5:09 PM) Basophils [0.0-1.0 1.2 % %] *HI* (09/01/16 5:09 PM) Segs-Bands # 3.4 K/CMM [1.5-8.1 K/CMM] (09/01/16 5:09 PM) Lymphocytes # 1.2 K/CMM [1.0-5.5 K/CMM] (09/01/16 5:09 PM) Monocytes # [0.0-0.8 0.5 K/CMM K/CMM] (09/01/16 5:09 PM) Eosinophils # 0.1 K/CMM [0.0-0.5 K/CMM] (09/01/16 5:09 PM) Basophils # [0.0-0.2 0.1 K/CMM K/CMM] (09/01/16 5:09 PM) PT [12.0-14.7 12.6 seconds seconds] (09/01/16 5:09 PM) INR [0.85-1.17] 0.92 (09/01/16 5:09 PM) PTT [22.9-35.8 24.7 seconds seconds] (09/01/16 5:09 PM) Immunizations No data available for this [...]
--- OUTSIDE RECORDS SUMMARY | 2019-03-23 18:39 | XMS REPORT | Summary of Care ---
Author Author [facility] Organization [facility] Address Unknown Phone Unavailable Encounter KENROY Aguayo(JOVANNY) [id number] Date(s): 10/01/16 - 10/17/16 [facility] [address] [place] [address] [phone] Discharge Diagnosis: Urinary tract infection, site not specified Discharge Disposition[facility] Attending Physician: Sae Sanchez MD Admitting Physician: Sae Sanchez MD Vital Signs 1 2 3 Most recent to oldest [Reference Range]: 165.1 cm (10/02/16 12:14 AM) 165.1 cm (10/01/16 12:16 PM) Height 97.7 DegF (10/17/16 4:02 PM) 97.5 DegF (10/17/16 12:00 PM) 97.7 DegF (10/17/16 7:31 AM) Temperature Oral [96.4-99.1 DegF] 119/52 mmHg (10/17/16 4:00 PM) 118/54 mmHg (10/17/16 3:00 PM) 109/46 mmHg (10/17/16 2:00 PM) Blood Pressure [90-140/60-90 mmHg] 18 BRMIN (10/17/16 12:00 PM) 16 BRMIN (10/17/16 11:00 AM) 19 BRMIN (10/17/16 8:29 AM) Respiratory Rate [14-20 BRMIN] 101 bpm *HI* (10/08/16 12:00 PM) 100 bpm (10/08/16 8:00 AM) 96 bpm (10/08/16 4:44 AM) Peripheral Pulse Rate [60-100 bpm] 116.364 kg (10/02/16 12:14 AM) 116.364 kg (10/01/16 12:16 PM) Weight 42.69 m2 (10/02/16 12:14 AM) 42.69 m2 (10/01/16 12:16 PM) Body Mass Index Problem List Condition [...] Active VRE(Confirmed)6 Active 1heart 2Data migrated from [employer] [employer] on 07/11/15. - in urine 4Problem added by Discern Expert. 5Data migrated from [employer] on 07/11/15. 6Problem added by Discern Expert. Allergies, Adverse Reactions, Alerts Substance Reaction Severity Status influenza virus vaccine, Influenza virus vaccine Active inactivated Januvia Active metformin Active Medications acetaminophen-hydrocodone 325 mg-5 mg oral tablet 2 tab, Route: PO, Drug Form: TAB, Dosing Weight 116.364, kg, Q4H, PRN Pain Score 7-10, Start date: 10/01/16 23:34:00 RETENTION MANAGER, Duration: 30 day, Stop date: 10/31/16 23:33:00 RETENTION MANAGER Notes: (Same as: [place] 325/5) Do not exceed 4gm/day of acetaminophen. Start Date: 10/01/16 Stop Date: 10/07/16 Status: Discontinued acetylcysteine 10% inhalation solution 200 mg, 2 ml, Route: NEB, Drug Form: SOLN, Dosing Weight 116.364, kg, RQID, Admi nister with albuterol, Start date: 10/10/16 11:00:00 RETENTION MANAGER, Duration: 30 day, Stop date: 11/09/16 7:00:00 RETENTION MANAGER Notes: WASTE: F/P - Black; E - Municipal Trash Bin Start Date: 10/10/16 Stop Date: 10/17/16 Status: Discontinued albuterol-ipratropium 3 mL, Route: NEB, Drug Form: SOLN, Dosing Weight 116.364, kg, RQ2H, PRN as neede d for shortness of breath or wheezing, Start date: 10/06/16 9:07:00 RETENTION MANAGER, Neema n: 30 day, Stop date: 11/05/16 9:06:00 RETENTION MANAGER Notes: (Same as: Helga) Start Date: 10/06/16 Stop Date: 10/17/16 Status: Discontinued albuterol-ipratropium 3 mL, NEB, RQ2H, PRN as needed for shortness of breath or wheezing, 0 Refill(s) Start Date: 10/17/16 Status: Ordered Ativan 1 mg, 0.5 mL, Route: IVP, Drug form: INJ, ONCE, Dosing Weight 116.364, kg, PRN A nxiety, Priority: NOW, Start date: 10/17/16 9:24:00 RETENTION MANAGER Notes: (Same as: Ativan) Start Date: 10/17/16 Stop Date: 10/17/16 Status: Discontinued Benadryl 25 mg, 1 tab, Route: PO, Drug form: TAB, Q8H, Dosing Weight 116.364, kg, PRN as needed for itching, Start date: 10/02/16 22:45:00 RETENTION MANAGER, Duration: 30 day, Stop da te: 11/01/16 22:44:00 RETENTION MANAGER Start Date: 10/02/16 Stop Date: 10/17/16 Status: Discontinued ceFAZolin + sodium chloride 0.9% INJ 100 mL 1 gm, Route: IVPB, ABXQ8H, Dosing Weight 116.364, kg, Start date: 10/03/16 13:00 :00 RETENTION MANAGER, Duration: 30 day, Stop date: 11/02/16 5:00:00 RETENTION MANAGER Notes: (Same As: Elisa Schofield) MEDICATION WASTE Product Size: 1000 mgP roduct Wasted: ___ mg Start Date: 10/03/16 Stop Date: 10/07/16 Status: Discontinued clonazePAM 0.5 mg, 1 tab, Route: PO, Drug form: TAB, TID, Dosing Weight 116.364, kg, Start date: 10/10/16 9:00:00 RETENTION MANAGER, Duration: 30 day, Stop date: 11/08/16 17:00:00 RETENTION MANAGER Notes: (Same As: KlonoPIN) Start Date: 10/10/16 Stop Date: 10/17/16 Status: Discontinued clonazePAM 100 microgram/ml cpmd oral suspension 0.5 mg=1 tab, PO, TID, 0 Refill(s) Start Date: 10/17/16 Status: Ordered cloNIDine 0.1 mg, 1 tab, Route: PO, Drug form: TAB, Q8H, Dosing Weight 116.364, kg, PRN Hy pertension, Start date: 10/04/16 14:58:00 RETENTION MANAGER, Duration: 30 day, Stop date: 10/17 07/02 14:57:00 RETENTION MANAGER Notes: (Same As: Catapres) Start Date: 10/04/16 Stop Date: 10/17/16 Status: Discontinued cloNIDine 0.1 mg oral tablet 0.1 mg=1 tab, PO, Q8H, PRN Hypertension, 0 Refill(s) Start Date: 10/17/16 Status: Ordered Dextrose 50% Syringe 12.5 gm, 25 mL, Route: IVP, Drug Form: INJ, Dosing Weight 116.364, kg, PRN, PRN Blood Glucose Results, Start date: 10/12/16 19:11:00 RETENTION MANAGER, Duration: 30 day, Stop date: 11/11/16 19:10:00 RETENTION MANAGER Start Date: 10/12/16 Stop Date: 10/17/16 Status: Discontinued Dextrose 50% Syringe 25 gm, 50 mL, Route: IVP, Drug Form: INJ, Dosing Weight 116.364, kg, PRN, PRN Bl ood Glucose Results, Start date: 10/12/16 19:11:00 RETENTION MANAGER, Duration: 30 day, Stop d ate: 11/11/16 19:10:00 RETENTION MANAGER Start Date: 10/12/16 Stop Date: 10/17/16 Status: Discontinued Dextrose 50% Syringe 25 gm, 50 mL, Route: IVP, Drug Form: INJ, Dosing Weight 116.364, kg, PRN, PRN Bl ood Glucose Results, Start date: 10/01/16 23:30:00 RETENTION MANAGER, Duration: 30 day, Stop d ate: 10/31/16 23:29:00 RETENTION MANAGER Start Date: 10/01/16 Stop Date: 10/03/16 Status: Discontinued Dextrose 50% Syringe 12.5 gm, 25 mL, Route: IVP, Drug Form: INJ, Dosing Weight 116.364, kg, PRN, PRN Blood Glucose Results, Start date: 10/01/16 23:30:00 RETENTION MANAGER, Duration: 30 day, Stop date: 10/31/16 23:29:00 RETENTION MANAGER Start Date: 10/01/16 Stop Date: 10/03/16 Status: Discontinued Dextrose 50% Syringe 12.5 gm, 25 mL, Route: IVP, Drug Form: INJ, Dosing Weight 116.364, kg, PRN, PRN Blood Glucose Results, Start date: 10/02/16 23:04:00 RETENTION MANAGER, Duration: 30 day, Stop date: 11/01/16 23:03:00 RETENTION MANAGER Start Date: 10/02/16 Stop Date: 10/12/16 Status: Discontinued Dextrose 50% Syringe 25 gm, 50 mL, Route: IVP, Drug Form: INJ, Dosing Weight 116.364, kg, PRN, PRN Bl ood Glucose Results, Start date: 10/02/16 23:04:00 RETENTION MANAGER, Duration: 30 day, Stop d ate: 11/01/16 23:03:00 RETENTION MANAGER Start Date: 10/02/16 Stop Date: 10/12/16 Status: Discontinued dicyclomine 20 mg, 1 tab, Route: PO, Drug form: TAB, QID, Dosing Weight 116.364, kg, Start d ate: 10/03/16 9:00:00 RETENTION MANAGER, Duration: 30 day, Stop date: 11/01/16 21:00:00 RETENTION MANAGER Notes: (Same as: Bentyl) Start Date: 10/03/16 Stop Date: 10/17/16 Status: Discontinued Diflucan 150 mg, 1.5 tab, Route: PO, Drug form: TAB, ONCE, Dosing Weight 116.364, kg, Sta rt date: 10/01/16 19:11:00 RETENTION MANAGER, Stop date: 10/01/16 19:11:00 RETENTION MANAGER Notes: (Same as: Diflucan) Start Date: 10/01/16 Stop Date: 10/01/16 Status: Completed Diflucan 150 mg, 3 tab, Route: PO, Drug form: TAB, ONCE, Dosing Weight 116.364, kg, Start date: 10/01/16 17:35:00 RETENTION MANAGER, Stop date: 10/01/16 17:35:00 RETENTION MANAGER Notes: (Same as: Diflucan) Start Date: 10/01/16 Stop Date: 10/01/16 Status: Deleted Dilaudid 0.5 mg, 0.5 mL, Route: IVP, Drug form: INJ, Q3H, Dosing Weight 116.364, kg, PRN Pain Score 7-10, Start date: 10/05/16 8:41:00 RETENTION MANAGER, Duration: 30 day, Stop date: 11/04/16 8:40:00 RETENTION MANAGER Start Date: 10/05/16 Stop Date: 10/12/16 Status: Discontinued fluconazole 150 mg, 1 tab, Route: PO, Drug form: TAB, ONCE, Dosing Weight 116.364, kg, Start date: 10/01/16 16:45:00 RETENTION MANAGER, Stop date: 10/01/16 16:45:00 RETENTION MANAGER Notes: (Same as: Diflucan) Start Date: 10/01/16 Stop Date: 10/01/16 Status: Deleted gabapentin 300 mg oral capsule 300 mg, 1 cap, Route: PO, Drug form: CAP, BID, Dosing Weight 116.364, kg, Start date: 10/03/16 9:00:00 RETENTION MANAGER, Duration: 30 day, Stop date: 11/01/16 17:00:00 RETENTION MANAGER Notes: (Same as: Neurontin) Start Date: 10/03/16 Stop Date: 10/17/16 Status: Discontinued gabapentin 300 mg oral capsule 300 mg=1 cap, PO, BID, # 90 cap, 1 Refill(s) Start Date: 10/02/16 Stop Date: 10/17/16 Status: Discontinued glimepiride 2 mg, 2 tab, Route: PO, Drug form: TAB, Breakfast, Dosing Weight 116.364, kg, St art date: 10/04/16 8:00:00 RETENTION MANAGER, Duration: 30 day, Stop date: 11/02/16 8:00:00 CS T Notes: (Same as: Amaryl) Start Date: 10/04/16 Stop Date: 10/17/16 Status: Discontinued glucagon 1 mg, Route: IM, Drug form: PDR/INJ, PRN, Dosing Weight 116.364, kg, PRN Blood G lucose Results, Start date: 10/12/16 19:11:00 RETENTION MANAGER, Duration: 30 day, Stop date: 11/11/16 19:10:00 RETENTION MANAGER Start Date: 10/12/16 Stop Date: 10/17/16 Status: Discontinued glucagon 1 mg, Route: IM, Drug form: PDR/INJ, PRN, Dosing Weight 116.364, kg, PRN Blood G lucose Results, Start date: 10/01/16 23:30:00 RETENTION MANAGER, Duration: 30 day, Stop date: 10/31/16 23:29:00 RETENTION MANAGER Start Date: 10/01/16 Stop Date: 10/03/16 Status: Discontinued glucagon 1 mg, Route: IM, Drug form: PDR/INJ, PRN, Dosing Weight 116.364, kg, PRN Blood G lucose Results, Start date: 10/02/16 23:04:00 RETENTION MANAGER, Duration: 30 day, Stop date: 11/01/16 23:03:00 RETENTION MANAGER Start Date: 10/02/16 Stop Date: 10/12/16 Status: Discontinued guaiFENesin 600 mg oral tablet, extended release 600 mg=1 tab, PO, Q12H, 0 Refill(s) Start Date: 10/17/16 Status: Ordered heparin 5,000 unit, 1 mL, Route: SUB-Q, Drug form: INJ, Q12H, Dosing Weight 116.364, kg, Start date: 10/12/16 21:00:00 RETENTION MANAGER, Duration: 30 day, Stop date: 11/11/16 9:00:00 RETENTION MANAGER Notes: porcine heparin Start Date: 10/12/16 Stop Date: 10/17/16 Status: Discontinued Humalog 20 unit, Route: SUB-Q, Drug form: SOLN, TID-Before Meals, Dosing Weight 116.364, kg, Start date: 10/03/16 11:30:00 RETENTION MANAGER, Duration: 30 day, Stop date: 11/02/16 7: 30:00 RETENTION MANAGER Start Date: 10/03/16 Stop Date: 10/03/16 Status: Deleted hydrALAZINE 10 mg, 0.5 mL, Route: IV, Drug form: INJ, ONCE, Dosing Weight 116.364, kg, Start date: 10/04/16 12:39:00 RETENTION MANAGER, Stop date: 10/04/16 12:39:00 RETENTION MANAGER Notes: (Same as: Apresoline)Push over 5 minutes Start Date: 10/04/16 Stop Date: 10/04/16 Status: Completed hydrALAZINE 25 mg oral tablet 50 mg, 2 tab, Route: PO, Drug form: TAB, TID, Dosing Weight 116.364, kg, Start d ate: 10/07/16 9:00:00 RETENTION MANAGER, Duration: 30 day, Stop date: 11/05/16 17:00:00 RETENTION MANAGER Notes: (Same as: Apresoline) May interfere w/enteral feedings Take With Food. Start Date: 10/07/16 Stop Date: 10/17/16 Status: Discontinued hydrALAZINE 25 mg oral tablet 50 mg=2 tab, PO, TID, 0 Refill(s) Start Date: 10/17/16 Status: Ordered hydrochlorothiazide 25 mg, 1 tab, Route: PO, Drug form: TAB, Daily, Dosing Weight 116.364, kg, Start date: 10/06/16 9:00:00 RETENTION MANAGER, Duration: 30 day, Stop date: 11/04/16 9:00:00 RETENTION MANAGER Notes: (Same as: Hydrodiuril) With food. Start Date: 10/06/16 Stop Date: 10/17/16 Status: Discontinued insulin aspart 4 unit, 0.04 mL, Route: SUB-Q, Drug form: SOLN, Bedtime, Dosing Weight 116.364, kg, PRN Blood Glucose Results, Start date: 10/12/16 19:11:00 RETENTION MANAGER, Duration: 30 d ay, Stop date: 11/11/16 19:10:00 RETENTION MANAGER Notes: Roll in palms of hands gently; Do not shake vigorously. (Same as: NovoJUANA G)"single patient use only"WASTE: F/P - Black; E - Municipal Trash Bin Stable f or 28 days at room temperature.Expires in days from Date Start Date: 10/12/16 Stop Date: 10/17/16 Status: Discontinued insulin aspart 2 unit, 0.02 mL, Route: SUB-Q, Drug form: SOLN, Bedtime, Dosing Weight 116.364, kg, PRN Blood Glucose Results, Start date: 10/12/16 19:11:00 RETENTION MANAGER, Duration: 30 d ay, Stop date: 11/11/16 19:10:00 RETENTION MANAGER Notes: Roll in palms of hands gently; Do not shake vigorously. (Same as: Manuel Garcia)"single patient use only"WASTE: F/P - Black; E - Municipal Trash Bin Stable f or 28 days at room temperature.Expires in days from Date Start Date: 10/12/16 Stop Date: 10/17/16 Status: Discontinued insulin aspart 3 unit, 0.03 mL, Route: SUB-Q, Drug form: SOLN, Bedtime, Dosing Weight 116.364, kg, PRN Blood Glucose Results, Start date: 10/12/16 19:11:00 RETENTION MANAGER, Duration: 30 d ay, Stop date: 11/11/16 19:10:00 RETENTION MANAGER Notes: Roll in palms of hands gently; Do not shake vigorously. (Same as: Manuel aGrcia)"single patient use only"WASTE: F/P - Black; E - Municipal Trash Bin Stable f or 28 days at room temperature.Expires in days from Date Start Date: 10/12/16 Stop Date: 10/17/16 Status: Discontinued insulin aspart 1 unit, 0.01 mL, Route: SUB-Q, Drug form: SOLN, Bedtime, Dosing Weight 116.364, kg, PRN Blood Glucose Results, Start date: 10/12/16 19:11:00 RETENTION MANAGER, Duration: 30 d ay, Stop date: 11/11/16 19:10:00 RETENTION MANAGER Notes: Roll in palms of hands gently; Do not shake vigorously. (Same as: Manuel Garcia)"single patient use only"WASTE: F/P - Black; E - Municipal Trash Bin Stable f or 28 days at room temperature.Expires in days from Date Start Date: 10/12/16 Stop Date: 10/17/16 Status: Discontinued insulin aspart 3 unit, 0.03 mL, Route: SUB-Q, Drug form: SOLN, TID-Before Meals, Dosing Weight 116.364, kg, PRN Blood Glucose Results, Start date: 10/12/16 19:11:00 RETENTION MANAGER, Durat ion: 30 day, Stop date: 11/11/16 19:10:00 RETENTION MANAGER Notes: Roll in palms of hands gently; Do not shake vigorously. (Same as: Manuel Garcia)"single patient use only"WASTE: F/P - Black; E - Municipal Trash Bin Stable f or 28 days at room temperature.Expires in days from Date Start Date: 10/12/16 Stop Date: 10/17/16 Status: Discontinued insulin aspart 12 unit, 0.12 mL, Route: SUB-Q, Drug form: SOLN, TID-Before Meals, Dosing Weight 116.364, kg, PRN Blood Glucose Results, Start date: 10/12/16 19:11:00 RETENTION MANAGER, Dura tion: 30 day, Stop date: 11/11/16 19:10:00 RETENTION MANAGER Notes: Roll in palms of hands gently; Do not shake vigorously. (Same as: Manuel Garcia)"single patient use only"WASTE: F/P - Black; E - Municipal Trash Bin Stable f or 28 days at room temperature.Expires in days from Date Start Date: 10/12/16 Stop Date: 10/17/16 Status: Discontinued insulin aspart 15 unit, 0.15 mL, Route: SUB-Q, Drug form: SOLN, TID-Before Meals, Dosing Weight 116.364, kg, PRN Blood Glucose Results, Start date: 10/12/16 19:11:00 RETENTION MANAGER, Dura tion: 30 day, Stop date: 11/11/16 19:10:00 RETENTION MANAGER Notes: Roll in palms of hands gently; Do not shake vigorously. (Same as: Manuel Garcia)"single patient use only"WASTE: F/P - Black; E - Municipal Trash Bin Stable f or 28 days at room temperature.Expires in days from Date Start Date: 10/12/16 Stop Date: 10/17/16 Status: Discontinued insulin aspart 6 unit, 0.06 mL, Route: SUB-Q, Drug form: SOLN, TID-Before Meals, Dosing Weight 116.364, kg, PRN Blood Glucose Results, Start date: 10/12/16 19:11:00 RETENTION MANAGER, Durat ion: 30 day, Stop date: 11/11/16 19:10:00 RETENTION MANAGER Notes: Roll in palms of hands gently; Do not shake vigorously. (Same as: NovoJUANA Garcia)"single patient use only"WASTE: F/P - Black; E - Municipal Trash Bin Stable f or 28 days at room temperature.Expires in days from Date Start Date: 10/12/16 Stop Date: 10/17/16 Status: Discontinued insulin aspart 9 unit, 0.09 mL, Route: SUB-Q, Drug form: SOLN, TID-Before Meals, Dosing Weight 116.364, kg, PRN Blood Glucose Results, Start date: 10/12/16 19:11:00 RETENTION MANAGER, Durat ion: 30 day, Stop date: 11/11/16 19:10:00 RETENTION MANAGER Notes: Roll in palms of hands gently; Do not shake vigorously. (Same as: NovoJUANA Garcia)"single patient use only"WASTE: F/P - Black; E - Municipal Trash Bin Stable f or 28 days at room temperature.Expires in days from Date Start Date: 10/12/16 Stop Date: 10/17/16 Status: Discontinued insulin aspart 10 unit, 0.1 mL, Route: SUB-Q, Drug form: SOLN, TID-Before Meals, Dosing Weight 116.364, kg, PRN Blood Glucose Results, Start date: 10/01/16 23:30:00 RETENTION MANAGER, Durat ion: 30 day, Stop date: 10/31/16 23:29:00 RETENTION MANAGER Notes: Roll in palms of hands gently; Do not shake vigorously. (Same as: NovoJUANA Gacria)"single patient use only"WASTE: F/P - Black; E - Municipal Trash Bin Stable f or 28 days at room temperature.Expires in days from Date Start Date: 10/01/16 Stop Date: 10/03/16 Status: Discontinued insulin aspart 8 unit, 0.08 mL, Route: SUB-Q, Drug form: SOLN, TID-Before Meals, Dosing Weight 116.364, kg, PRN Blood Glucose Results, Start date: 10/01/16 23:30:00 RETENTION MANAGER, Durat ion: 30 day, Stop date: 10/31/16 23:29:00 RETENTION MANAGER Notes: Roll in palms of hands gently; Do not shake vigorously. (Same as: Manuel Garcia)"single patient use only"WASTE: F/P - Black; E - Municipal Trash Bin Stable f or 28 days at room temperature.Expires in days from Date Start Date: 10/01/16 Stop Date: 10/03/16 Status: Discontinued insulin aspart 6 unit, 0.06 mL, Route: SUB-Q, Drug form: SOLN, TID-Before Meals, Dosing Weight 116.364, kg, PRN Blood Glucose Results, Start date: 10/01/16 23:30:00 RETENTION MANAGER, Durat ion: 30 day, Stop date: 10/31/16 23:29:00 RETENTION MANAGER Notes: Roll in palms of hands gently; Do not shake vigorously. (Same as: Manuel Garcia)"single patient use only"WASTE: F/P - Black; E - Municipal Trash Bin Stable f or 28 days at room temperature.Expires in days from Date Start Date: 10/01/16 Stop Date: 10/03/16 Status: Discontinued insulin aspart 4 unit, 0.04 mL, Route: SUB-Q, Drug form: SOLN, TID-Before Meals, Dosing Weight 116.364, kg, PRN Blood Glucose Results, Start date: 10/01/16 23:30:00 RETENTION MANAGER, Durat ion: 30 day, Stop date: 10/31/16 23:29:00 RETENTION MANAGER Notes: Roll in palms of hands gently; Do not shake vigorously. (Same as: Manuel Garcia)"single patient use only"WASTE: F/P - Black; E - Municipal Trash Bin Stable f or 28 days at room temperature.Expires in days from Date Start Date: 10/01/16 Stop Date: 10/03/16 Status: Discontinued insulin aspart 2 unit, 0.02 mL, Route: SUB-Q, Drug form: SOLN, TID-Before Meals, Dosing Weight 116.364, kg, PRN Blood Glucose Results, Start date: 10/01/16 23:30:00 RETENTION MANAGER, Durat ion: 30 day, Stop date: 10/31/16 23:29:00 RETENTION MANAGER Notes: Roll in palms of hands gently; Do not shake vigorously. (Same as: Manuel Garcia)"single patient use only"WASTE: F/P - Black; E - Municipal Trash Bin Stable f or 28 days at room temperature.Expires in days from Date Start Date: 10/01/16 Stop Date: 10/03/16 Status: Discontinued insulin aspart 4 unit, 0.04 mL, Route: SUB-Q, Drug form: SOLN, Bedtime, Dosing Weight 116.364, kg, PRN Blood Glucose Results, Start date: 10/04/16 23:14:00 RETENTION MANAGER, Duration: 30 d ay, Stop date: 11/03/16 23:13:00 RETENTION MANAGER Notes: Roll in palms of hands gently; Do not shake vigorously. (Same as: Manuel Garcia)"single patient use only"WASTE: F/P - Black; E - Municipal Trash Bin Stable f or 28 days at room temperature.Expires in days from Date Start Date: 10/04/16 Stop Date: 10/12/16 Status: Discontinued insulin aspart 3 unit, 0.03 mL, Route: SUB-Q, Drug form: SOLN, Bedtime, Dosing Weight 116.364, kg, PRN Blood Glucose Results, Start date: 10/04/16 23:14:00 RETENTION MANAGER, Duration: 30 d ay, Stop date: 11/03/16 23:13:00 RETENTION MANAGER Notes: Roll in palms of hands gently; Do not shake vigorously. (Same as: Manuel Garcia)"single patient use only"WASTE: F/P - Black; E - Municipal Trash Bin Stable f or 28 days at room temperature.Expires in days from Date Start Date: 10/04/16 Stop Date: 10/12/16 Status: Discontinued insulin aspart 1 unit, 0.01 mL, Route: SUB-Q, Drug form: SOLN, Bedtime, Dosing Weight 116.364, kg, PRN Blood Glucose Results, Start date: 10/04/16 23:14:00 RETENTION MANAGER, Duration: 30 d ay, Stop date: 11/03/16 23:13:00 RETENTION MANAGER Notes: Roll in palms of hands gently; Do not shake vigorously. (Same as: Manuel Garcia)"single patient use only"WASTE: F/P - Black; E - Municipal Trash Bin Stable f or 28 days at room temperature.Expires in days from Date Start Date: 10/04/16 Stop Date: 10/12/16 Status: Discontinued insulin aspart 2 unit, 0.02 mL, Route: SUB-Q, Drug form: SOLN, Bedtime, Dosing Weight 116.364, kg, PRN Blood Glucose Results, Start date: 10/04/16 23:14:00 RETENTION MANAGER, Duration: 30 d ay, Stop date: 11/03/16 23:13:00 RETENTION MANAGER Notes: Roll in palms of hands gently; Do not shake vigorously. (Same as: Manuel Garcia)"single patient use only"WASTE: F/P - Black; E - Municipal Trash Bin Stable f or 28 days at room temperature.Expires in days from Date Start Date: 10/04/16 Stop Date: 10/12/16 Status: Discontinued insulin aspart 6 unit, 0.06 mL, Route: SUB-Q, Drug form: SOLN, TID-Before Meals, Dosing Weight 116.364, kg, PRN Blood Glucose Results, Start date: 10/02/16 23:04:00 RETENTION MANAGER, Durat ion: 30 day, Stop date: 11/01/16 23:03:00 RETENTION MANAGER Notes: Roll in palms of hands gently; Do not shake vigorously. (Same as: VelJUANA G)"single patient use only"WASTE: F/P - Black; E - Municipal Trash Bin Stable f or 28 days at room temperature.Expires in days from Date Start Date: 10/02/16 Stop Date: 10/12/16 Status: Discontinued insulin aspart 3 unit, 0.03 mL, Route: SUB-Q, Drug form: SOLN, TID-Before Meals, Dosing Weight 116.364, kg, PRN Blood Glucose Results, Start date: 10/02/16 23:04:00 RETENTION MANAGER, Durat ion: 30 day, Stop date: 11/01/16 23:03:00 RETENTION MANAGER Notes: Roll in palms of hands gently; Do not shake vigorously. (Same as: NovoJUANA G)"single patient use only"WASTE: F/P - Black; E - Municipal Trash Bin Stable f or 28 days at room temperature.Expires in days from Date Start Date: 10/02/16 Stop Date: 10/12/16 Status: Discontinued insulin aspart 12 unit, 0.12 mL, Route: SUB-Q, Drug form: SOLN, TID-Before Meals, Dosing Weight 116.364, kg, PRN Blood Glucose Results, Start date: 10/02/16 23:04:00 RETENTION MANAGER, Dura tion: 30 day, Stop date: 11/01/16 23:03:00 RETENTION MANAGER Notes: Roll in palms of hands gently; Do not shake vigorously. (Same as: NovoJUANA G)"single patient use only"WASTE: F/P - Black; E - Municipal Trash Bin Stable f or 28 days at room temperature.Expires in days from Date Start Date: 10/02/16 Stop Date: 10/12/16 Status: Discontinued insulin aspart 9 unit, 0.09 mL, Route: SUB-Q, Drug form: SOLN, TID-Before Meals, Dosing Weight 116.364, kg, PRN Blood Glucose Results, Start date: 10/02/16 23:04:00 RETENTION MANAGER, Durat ion: 30 day, Stop date: 11/01/16 23:03:00 RETENTION MANAGER Notes: Roll in palms of hands gently; Do not shake vigorously. (Same as: Manuel Garcia)"single patient use only"WASTE: F/P - Black; E - Municipal Trash Bin Stable f or 28 days at room temperature.Expires in days from Date Start Date: 10/02/16 Stop Date: 10/12/16 Status: Discontinued insulin aspart 15 unit, 0.15 mL, Route: SUB-Q, Drug form: SOLN, TID-Before Meals, Dosing Weight 116.364, kg, PRN Blood Glucose Results, Start date: 10/02/16 23:04:00 RETENTION MANAGER, Dura tion: 30 day, Stop date: 11/01/16 23:03:00 RETENTION MANAGER Notes: Roll in palms of hands gently; Do not shake vigorously. (Same as: Manuel Garcia)"single patient use only"WASTE: F/P - Black; E - Municipal Trash Bin Stable f or 28 days at room temperature.Expires in days from Date Start Date: 10/02/16 Stop Date: 10/12/16 Status: Discontinued insulin detemir 100 units/mL subcutaneous solution 25 unit, SUB-Q, Q12H, 0 Refill(s) Start Date: 10/17/16 Status: Ordered Keflex 500 mg, 2 cap, Route: PO, Drug form: CAP, Q6H, Dosing Weight 116.364, kg, Start date: 10/07/16 18:00:00 RETENTION MANAGER, Duration: 30 day, Stop date: 11/06/16 12:00:00 RETENTION MANAGER Notes: Take on empty stomach. (Same As: Keflex) Start Date: 10/07/16 Stop Date: 10/09/16 Status: Discontinued lactulose 20 gm, 30 ml, Route: PO, Drug Form: SYRP, Dosing Weight 116.364, kg, Daily, PRN Constipation, Start date: 10/04/16 14:57:00 RETENTION MANAGER, Duration: 30 day, Stop date: 14:56:00 RETENTION MANAGER Notes: (Same as:Chronulac) Start Date: 10/04/16 Stop Date: 10/17/16 Status: Discontinued lactulose 10 g/15 mL oral syrup 20 gm=30 mL, PO, Daily, PRN Constipation, 0 Refill(s) Start Date: 10/17/16 Status: Ordered Lasix 40 mg, 4 mL, Route: IVP, Drug form: INJ, Daily, Dosing Weight 116.364, kg, Prior ity: Routine, Start date: 10/14/16 7:00:00 RETENTION MANAGER, Duration: 30 day, Stop date: 9:00:00 RETENTION MANAGER Notes: (Same as: Lasix) MEDICATION WASTE Product Size: 40 mgProduct Was yahir: ___ mg Start Date: 10/14/16 Stop Date: 10/17/16 Status: Discontinued Lasix 60 mg, 6 mL, Route: IVP, Drug form: INJ, Daily, Dosing Weight 116.364, kg, Prior ity: NOW, Start date: 10/16/16 10:20:00 RETENTION MANAGER, Stop date: 11/15/16 9:00:00 RETENTION MANAGER Notes: (Same as: Lasix) MEDICATION WASTE Product Size: 40 mgProduct Was yahir: _20__ mg Start Date: 10/16/16 Stop Date: 10/17/16 Status: Discontinued Lasix 60 mg, 6 mL, Route: IVP, Drug form: INJ, ONCE, Dosing Weight 116.364, kg, Start date: 10/15/16 14:09:00 RETENTION MANAGER, Stop date: 10/15/16 14:09:00 RETENTION MANAGER Notes: (Same as: Lasix) MEDICATION WASTE Product Size: 40 mgProduct Was yahir: ___ mg Start Date: 10/15/16 Stop Date: 10/15/16 Status: Completed Lasix 40 mg oral tablet 40 mg=1 tab, PO, BID, # 90 tab, 0 Refill(s), other Start Date: 10/17/16 Status: Ordered Levemir 25 unit, 0.25 mL, Route: SUB-Q, Drug form: INJ, Q12H, Dosing Weight 116.364, kg, Start date: 10/05/16 9:00:00 RETENTION MANAGER, Stop date: 11/03/16 21:00:00 RETENTION MANAGER Notes: Same as LevemirDo not hold insulin without contacting prescriberWASTE: F/ P - Black; E - Municipal Trash Bin "single patient use only" Start Date: 10/05/16 Stop Date: 10/17/16 Status: Discontinued Levemir 14 unit, 0.14 mL, Route: SUB-Q, Drug form: INJ, ONCE, Dosing Weight 116.364, kg, Start date: 10/11/16 21:29:00 RETENTION MANAGER, Stop date: 10/11/16 21:29:00 RETENTION MANAGER Notes: Same as LevemirDo not hold insulin without contacting prescriberWASTE: F/ P - Black; E - Municipal Trash Bin "single patient use only" Start Date: 10/11/16 Stop Date: 10/11/16 Status: Completed Levemir 60 unit, 0.6 mL, Route: SUB-Q, Drug form: INJ, Bedtime, Dosing Weight 116.364, k g, Start date: 10/03/16 21:00:00 RETENTION MANAGER, Duration: 30 day, Stop date: 11/01/16 21:0 0:00 RETENTION MANAGER Notes: Same as LevemirDo not hold insulin without contacting prescriberWASTE: F/ P - Black; E - Municipal Trash Bin "single patient use only" Start Date: 10/03/16 Stop Date: 10/05/16 Status: Discontinued lisinopril 30 mg, 1.5 tab, Route: PO, Drug form: TAB, Daily, Dosing Weight 116.364, kg, Sta rt date: 10/03/16 9:00:00 RETENTION MANAGER, Duration: 30 day, Stop date: 11/01/16 9:00:00 RETENTION MANAGER Notes: (Same as: ivil, Zestril) Start Date: 10/03/16 Stop Date: 10/05/16 Status: Discontinued lisinopril 40 mg, 2 tab, Route: PO, Drug form: TAB, Daily, Dosing Weight 116.364, kg, Start date: 10/05/16 9:00:00 RETENTION MANAGER, Duration: 30 day, Stop date: 11/03/16 9:00:00 RETENTION MANAGER Notes: (Same as: Prinivil, Zestril) Start Date: 10/05/16 Stop Date: 10/17/16 Status: Discontinued meropenem 500 mg intravenous injection 500 mg, IV, Q8H, X 3 day, # 9 vial, 0 Refill(s) Start Date: 10/17/16 Stop Date: 10/20/16 Status: Ordered Merrem + sodium chloride 0.9% INJ 100 mL 500 mg, Route: IVPB, ABXQ8H, Dosing Weight 116.364, kg, CrCL >=50ml/min, Extended infusion, infuse over 3 hours, Start date: 10/14/16 0:00:00 RETENTION MANAGER, Stop date: 11/12/16 22:00:00 RETENTION MANAGER Notes: Same as Merrem MEDICATION WASTE Product Size: 500 mgProduct Wast ed: ___ mg Start Date: 10/14/16 Stop Date: 10/17/16 Status: Discontinued Milk of Magnesia 30 ml, Route: PO, Drug Form: SUSP, Dosing Weight 116.364, kg, Q6H, PRN Constipat ion, Start date: 10/04/16 14:57:00 RETENTION MANAGER, Duration: 30 day, Stop date: 11/03/16 14 :56:00 RETENTION MANAGER Notes: (Same as: Milk of Magnesia, MOM) Start Date: 10/04/16 Stop Date: 10/17/16 Status: Discontinued morphine Sulfate 2 mg, 1 mL, Route: IVP, Drug form: INJ, Q4H, Dosing Weight 116.364, kg, PRN Pain Score 7-10, Start date: 10/01/16 23:34:00 RETENTION MANAGER, Duration: 30 day, Stop date: 23:33:00 RETENTION MANAGER Notes: (Same as:MORPhine Sulfate) Start Date: 10/01/16 Stop Date: 10/07/16 Status: Discontinued morphine Sulfate 4 mg, Route: IVP, ONCE, Dosing Weight 116.364, kg, Priority: STAT, Start date: 12/01/15 18:03:00 RETENTION MANAGER, Stop date: 10/01/16 18:03:00 RETENTION MANAGER Start Date: 10/01/16 Stop Date: 10/01/16 Status: Completed morphine Sulfate 4 mg, Route: IVP, ONCE, Dosing Weight 116.364, kg, Priority: STAT, Start date: 12/01/15 15:24:00 RETENTION MANAGER, Stop date: 10/01/16 15:24:00 RETENTION MANAGER Start Date: 10/01/16 Stop Date: 10/01/16 Status: Completed Mucinex 600 mg, 1 tab, Route: PO, Drug form: ERTAB, Q12H, Dosing Weight 116.364, kg, Sta rt date: 10/10/16 21:00:00 RETENTION MANAGER, Duration: 30 day, Stop date: 11/09/16 9:00:00 CS T Notes: (Same as: Guaifenesin LA, Humibid LA, Mucinex)"Do Not Crush" Take medica tion with plenty of water. Start Date: 10/10/16 Stop Date: 10/17/16 Status: Discontinued NIFEdipine 30 mg oral tablet, extended release 30 mg, 1 tab, Route: PO, Drug form: ERTAB, Daily, Dosing Weight 116.364, kg, Sta rt date: 10/08/16 9:00:00 RETENTION MANAGER, Stop date: 11/06/16 9:00:00 RETENTION MANAGER Notes: (Same as: Procardia XL)"Do Not Crush" "Avoid grapefruit and grapefruit j uice" Start Date: 10/08/16 Stop Date: 10/17/16 Status: Discontinued Beaumont 10/325 oral tablet 1 tab, Route: PO, Drug Form: TAB, Dosing Weight 116.364, kg, Q4H, PRN Pain Score 7-10, Start date: 10/07/16 9:26:00 RETENTION MANAGER, Duration: 30 day, Stop date: 11/06/16 9 :25:00 RETENTION MANAGER Notes: Do not exceed 4gm/day of acetaminophen. (Same as: [place]ont 325/10) Start Date: 10/07/16 Stop Date: 10/14/16 Status: Discontinued NovoLOG FlexPen 10 unit, 0.1 mL, Route: SUB-Q, Drug form: SOLN, TID-Before Meals, Start date: 11:30:00 RETENTION MANAGER, Stop date: 11/02/16 7:30:00 RETENTION MANAGER Notes: Roll in palms of hands gently; Do not shake vigorously. (Same as: NovoLO G)"single patient use only"WASTE: F/P - Black; E - Municipal Trash Bin Stable f or 28 days at room temperature.Expires in days from Date Start Date: 10/03/16 Stop Date: 10/17/16 Status: Discontinued NS (Bolus) IV 1,000 mL, 1,000 ml/hr, Infuse Over: 1 hr, Route: IV, ONCE, Priority: STAT, Dosin g Weight 116.364 kg, Start date: 10/01/16 15:24:00 RETENTION MANAGER, Duration: 1 doses or susanna es, Stop date: 10/01/16 15:24:00 RETENTION MANAGER Start Date: 10/01/16 Stop Date: 10/01/16 Status: Completed nystatin-triamcinolone topical cream 1 appl, Route: TOP, BID, Drug form: CRM, Start date: 10/03/16 9:00:00 RETENTION MANAGER, Durat ion: 30 day, Stop date: 11/01/16 17:00:00 RETENTION MANAGER Notes: (nystatin-triamcinolone 145503 units/g-0.1% top CRM 60 gm ) Start Date: 10/03/16 Stop Date: 10/17/16 Status: Discontinued nystatin-triamcinolone topical cream 1 appl, TOP, BID, # 30 gm, 0 Refill(s) Start Date: 10/02/16 Stop Date: 10/16/16 Status: Ordered Omnicef 300 mg oral capsule 300 mg=1 cap, PO, Q12H, X 14 day, # 28 cap, 0 Refill(s) Start Date: 10/01/16 Stop Date: 10/15/16 Status: Completed ondansetron 4 mg, 2 mL, Route: IVP, Drug form: INJ, Q6H, Dosing Weight 116.364, kg, PRN Naus ea & Vomiting, Start date: 10/01/16 23:34:00 RETENTION MANAGER, Duration: 30 day, Stop date: 10/31/16 23:33:00 RETENTION MANAGER Notes: (Same as: Zofran) MEDICATION WASTE Product Size: 4 mgProduct Was yahir: ___ mg Start Date: 10/01/16 Stop Date: 10/17/16 Status: Discontinued pantoprazole 40 mg, 1 tab, Route: PO, Drug form: ECTAB, Before Dinner, Dosing Weight 116.364, kg, Start date: 10/03/16 16:30:00 RETENTION MANAGER, Duration: 30 day, Stop date: 11/01/16 16 :30:00 RETENTION MANAGER Notes: Tablet should not be chewed or crushed.(Same as: Protonix) Start Date: 10/03/16 Stop Date: 10/17/16 Status: Discontinued Percocet 5/325 oral tablet 1 tab, Route: PO, Drug Form: TAB, Dosing Weight 116.364, kg, Q12H, PRN Pain Scor e 6-10, Start date: 10/17/16 10:34:00 RETENTION MANAGER, Duration: 30 day, Stop date: 11/16/16 10:33:00 RETENTION MANAGER Notes: Do not exceed 4gm/day of acetaminophen. (Same as: Percocet-5/325) Start Date: 10/17/16 Stop Date: 10/17/16 Status: Discontinued Percocet 5/325 oral tablet 1 tab, PO, Q12H, PRN Pain Score 6-10, 0 Refill(s) Start Date: 10/17/16 Status: Ordered pneumococcal 23-valent vaccine 0.5 mL, Route: IM, Drug Form: INJ, Daily, Start date: 10/09/16 9:00:00 RETENTION MANAGER, Dura tion: 1 doses or times, Stop date: 10/09/16 9:00:00 RETENTION MANAGER Notes: (Same as: Pneumovax 23) Refrigerate Start Date: 10/09/16 Stop Date: 10/09/16 Status: Completed predniSONE 40 mg, 2 tab, Route: PO, Drug form: TAB, Daily, Dosing Weight 116.364, kg, Start date: 10/13/16 9:00:00 RETENTION MANAGER, Stop date: 11/11/16 9:00:00 RETENTION MANAGER Notes: Take with food. Start Date: 10/13/16 Stop Date: 10/17/16 Status: Discontinued Reglan 10 mg, 2 mL, Route: IVP, Drug form: INJ, Q6H, Dosing Weight 116.364, kg, PRN [place] sea & Vomiting, Start date: 10/02/16 9:14:00 RETENTION MANAGER, Duration: 30 day, Stop date: 11/01/16 9:13:00 RETENTION MANAGER Notes: (Same as: Reglan) Start Date: 10/02/16 Stop Date: 10/07/16 Status: Discontinued Reglan 5 mg, 1 tab, Route: PO, Drug form: TAB, Before Meals & Bedtime, Dosing Weight 116.364, kg, Start date: 10/07/16 16:30:00 RETENTION MANAGER, Stop date: 11/06/16 11:30:00 RETENTION MANAGER Notes: (Same as: Reglan) Take 30 min before meals Start Date: 10/07/16 Stop Date: 10/17/16 Status: Discontinued Rocephin + sodium chloride 0.9% INJ 100 mL 1 gm, Route: IVPB, [id number], Dosing Weight 116.364, kg, Start date: 10/02/16 0:00 :00 RETENTION MANAGER, Duration: 30 day, Stop date: 10/31/16 23:00:00 RETENTION MANAGER Notes: (Same As: Rocephin).Use with 100 mL NS and infuse over 30 min MEDICA TION WASTE Product Size: 1000 mgProduct Wasted: ___ mg Start Date: 10/02/16 Stop Date: 10/03/16 Status: Discontinued Rocephin + sodium chloride 0.9% INJ 100 mL 1 gm, Route: IV, ONCE, Dosing Weight 116.364, kg, Priority: STAT, Start date: 22:39:00 RETENTION MANAGER, Stop date: 10/01/16 22:39:00 RETENTION MANAGER Notes: (Same As: Rocephin).Use with 100 mL NS and infuse over 30 min MEDICA TION WASTE Product Size: 1000 mgProduct Wasted: ___ mg Start Date: 10/01/16 Stop Date: 10/01/16 Status: Completed Saline Flush 0.9% 10 ml, Route: IVP, Drug Form: INJ, Dosing Weight 116.364, kg, PRN, PRN Line Flus h, Start date: 10/01/16 23:34:00 RETENTION MANAGER, Duration: 30 day, Stop date: 10/31/16 23:3 3:00 RETENTION MANAGER Notes: (Same as: BD Posiflush) Start Date: 10/01/16 Stop Date: 10/17/16 Status: Discontinued Saline Flush 0.9% 10 mL, Route: IVP, Drug Form: INJ, Dosing Weight 116.364, kg, PRN, PRN Line Flus h, Start date: 10/01/16 12:22:00 RETENTION MANAGER, Duration: 30 day, Stop date: 10/31/16 12:2 1:00 RETENTION MANAGER Notes: (Same as: BD Posiflush) Start Date: 10/01/16 Stop Date: 10/02/16 Status: Discontinued sodium chloride 0.9% 1000 ml INJ 1,000 mL 1,000 mL, Rate: 100 ml/hr, Infuse over: 10 hr, Route: IV, Dosing Weight 116.364 kg, Total Volume: 1,000, Start date: 10/01/16 23:34:00 RETENTION MANAGER, Duration: 30 day, St op date: 10/31/16 23:33:00 RETENTION MANAGER Start Date: 10/01/16 Stop Date: 10/08/16 Status: Discontinued tramadol 50 mg, 1 tab, Route: PO, Drug form: TAB, Q12H, Dosing Weight 116.364, kg, PRN Pa in Score 6-10, Start date: 10/12/16 9:36:00 RETENTION MANAGER, Stop date: 11/11/16 9:35:00 RETENTION MANAGER Notes: Not to exceed 400mg/day. (Same As: Ultram) Start Date: 10/12/16 Stop Date: 10/17/16 Status: Discontinued tramadol 50 mg oral tablet 50 mg=1 tab, PO, Q12H, PRN Pain Score 6-10, 0 Refill(s) Start Date: 10/17/16 Status: Ordered Tylenol with Codeine #3 oral tablet 1 tab, PO, Q6H, PRN Pain, X 3 day, # 11 tab, 0 Refill(s) Start Date: 10/01/16 Stop Date: 10/04/16 Status: Completed Vanco Trough due 30 mins BEFORE the AM dose on 10/12/16 Vanco Trough due 30 mins BEFORE the AM dose on 10/12/16, reminder, Drug form: CO SC, Route: MISC, ONCE, 10/12/16 9:30:00 RETENTION MANAGER, Stop date: 10/12/16 9:30:00 RETENTION MANAGER Start Date: 10/12/16 Stop Date: 10/12/16 Status: Completed vancomycin 1.5 gm, 250 mL, Route: IV, Drug form: INJ, [id number], Dosing Weight 116.364, kg, S tart date: 10/09/16 8:00:00 RETENTION MANAGER, Stop date: 11/07/16 20:00:00 RETENTION MANAGER Notes: TIME CRITICAL MEDICATIONSame as: Vancocin-NS (premixed)Infusion rate< 1000 mg: infuse over 1 [id number] - 1500 mg: infuse over 1.5 [id number] - 2000 mg: infuse over 2 hours> 2001 mg: infuse over 2.5 hours Start Date: 10/09/16 Stop Date: 10/10/16 Status: Discontinued vancomycin 1.25 gm, 250 mL, Route: IVPB, Drug form: INJ, [id number], Start date: 10/10/16 22:0 0:00 RETENTION MANAGER, Duration: 30 day, Stop date: 11/09/16 11:00:00 RETENTION MANAGER Notes: TIME CRITICAL MEDICATIONSame as: Vancocin-NS (premixed)Infusion rate< 1000 mg: infuse over 1 [id number] - 1500 mg: infuse over 1.5 [id number] - 2000 mg: infuse over 2 hours> 2001 mg: infuse over 2.5 hours Start Date: 10/10/16 Stop Date: 10/12/16 Status: Discontinued vancomycin 1.75 gm, 500 mL, Route: IVPB, Drug form: SOLN, [id number], Start date: 10/13/16 4:0 0:00 RETENTION MANAGER, Duration: 30 day, Stop date: 11/11/16 4:00:00 RETENTION MANAGER Notes: TIME CRITICAL MEDICATIONSame as: Vancocin Start Date: 10/13/16 Stop Date: 10/17/16 Status: Discontinued vancomycin + sodium chloride 0.9% 500 mL INJ (for IV set) 500 mL 2,000 mg, Route: IVPB, ONCE, Dosing Weight 116.364, kg, Priority: STAT, Start da te: 10/01/16 15:26:00 RETENTION MANAGER, Stop date: 10/01/16 15:26:00 RETENTION MANAGER Notes: TIME CRITICAL MEDICATION(Same As: Vancocin)Infusion rate< 1000 mg: infuse over 1 [id number] - 1500 mg: infuse over 1.5 [id number] - 2000 mg: infuse over 2 hours> 2001 mg: infuse over 2.5 hours MEDICATION WASTE Product Size: 1000 mgProduct Wasted: ___ mg Start Date: 10/01/16 Stop Date: 10/01/16 Status: Completed Vancomycin Pharmacy Dosing Vancomycin Pharmacy Dosing, 1 dose, Drug form: MISC, Route: MISC, Daily, 6 9:00:00 RETENTION MANAGER, Duration: 30 day, Stop date: 11/07/16 9:00:00 RETENTION MANAGER Start Date: 10/09/16 Stop Date: 10/09/16 Status: Discontinued Vancomycin Pharmacy Dosing 1 ea, Route: MISC, Dosing Weight 116.364, kg, ONCALL, Start date: 10/09/16 8:00: 00 RETENTION MANAGER, Duration: 1 doses or times, Pharmacy to dose Start Date: 10/09/16 Stop Date: 10/09/16 Status: Deleted Zofran 4 mg, Route: IVP, Drug form: INJ, ONCE, Dosing Weight 116.364, kg, Priority: STA T, Start date: 10/01/16 19:44:00 RETENTION MANAGER, Stop date: 10/01/16 19:44:00 RETENTION MANAGER Start Date: 10/01/16 Stop Date: 10/01/16 Status: Completed Zofran 4 mg, Route: IVP, Drug form: INJ, ONCE, Dosing Weight 116.364, kg, Priority: STA T, Start date: 10/01/16 15:24:00 RETENTION MANAGER, Stop date: 10/01/16 15:24:00 RETENTION MANAGER Start Date: 10/01/16 Stop Date: 10/01/16 Status: Completed Zofran ODT 4 mg oral tablet, disintegrating 4 mg=1 tab, PO, TID, Dissolve tab under tongue, X 1 day, # 3 tab, 0 Refill(s) Start Date: 10/01/16 Stop Date: 10/02/16 Status: Completed Zosyn + sodium chloride 0.9% 100 ml ADV 100 mL 3.375 gm, Route: IVPB, ABXQ8H, Dosing Weight 116.364, kg, CrCl >=20 ml/min infuse over 4 hours, Start date: 10/09/16 8:00:00 RETENTION MANAGER, Duration: 30 day, Stop date: 11/08/16 2:00:00 RETENTION MANAGER Notes: (Same as: Zosyn) Dosing based on Piperacillin component Start Date: 10/09/16 Stop Date: 10/09/16 Status: Deleted Zosyn + sodium chloride 0.9% 100 ml ADV 100 mL 3.375 gm, Route: IVPB, ABXQ8H, Dosing Weight 116.364, kg, CrCl >=20 ml/min infuse over 4 hours, Start date: 10/09/16 9:00:00 RETENTION MANAGER, Duration: 30 day, Stop date: 11/08/16 1:00:00 RETENTION MANAGER Notes: (Same as: Zosyn) Dosing based on Piperacillin component Start Date: 10/09/16 Stop Date: 10/13/16 Status: Discontinued Results ELECTROLYTES 1 2 3 Most recent to oldest [Reference Range]: 138 mEq/L (10/17/16 4:10 AM) 136 mEq/L (10/16/16 4:26 AM) 136 mEq/L (10/15/16 4:32 AM) Sodium Lvl [135-145 mEq/L] 5.0 mEq/L (10/17/16 4:10 AM) 5.2 mEq/L *HI* (10/16/16 4:26 AM) 4.4 mEq/L (10/15/16 4:32 AM) Potassium Lvl [3.5-5.1 mEq/L] 99 mEq/L (10/17/16 4:10 AM) 101 mEq/L (10/16/16 4:26 AM) 97 mEq/L (10/15/16 4:32 AM) Chloride Lvl [95-109 mEq/L] 31 mEq/L (10/17/16 4:10 AM) 28 mEq/L (10/16/16 4:26 AM) 29 mEq/L (10/15/16 4:32 AM) CO2 [24-32 mEq/L] 13.0 mEq/L (10/17/16 4:10 AM) 12.2 mEq/L (10/16/16 4:26 AM) 14.4 mEq/L (10/15/16 4:32 AM) AGAP [10.0-20.0 mEq/L] CHEM PANEL 1 2 3 Most recent to oldest [Reference Range]: 2.70 mg/dL *HI* (10/17/16 4:10 AM) 2.50 mg/dL *HI* (10/16/16 4:26 AM) 2.70 mg/dL *HI* (10/15/16 4:32 AM) Creatinine Lvl [0.50-1.40 mg/dL] 18 mL/min/1.73m2 1 *NA* (10/17/16 4:10 AM) 20 mL/min/1.73m2 2 *NA* (10/16/16 4:26 AM) 18 mL/min/1.73m2 3 *NA* (10/15/16 4:32 AM) eGFR 65 mg/dL *HI* (10/17/16 4:10 AM) 57 mg/dL *HI* (10/16/16 4:26 AM) 52 mg/dL *HI* (10/15/16 4:32 AM) BUN [7-22 mg/dL] 25 (10/02/16 4:01 AM) 18 (10/01/16 2:00 PM) B/C Ratio [6-25] 266 mg/dL *HI* (10/17/16 4:10 AM) 214 mg/dL *HI* (10/16/16 4:26 AM) 210 mg/dL *HI* (10/15/16 4:32 AM) Glucose Lvl [70-99 mg/dL] 6.5 g/dL (10/02/16 4:01 AM) 8.1 g/dL (10/01/16 2:00 PM) Total Protein [6.4-8.4 g/dL] 2.5 g/dL *LOW* (10/17/16 4:10 AM) 2.4 g/dL *LOW* (10/16/16 4:26 AM) 2.5 g/dL *LOW* (10/15/16 4:32 AM) Albumin Lvl [3.5-5.0 g/dL] 4.0 g/dL (10/02/16 4:01 AM) 5.2 g/dL *HI* (10/01/16 2:00 PM) Globulin [2.7-4.2 g/dL] 0.6 *LOW* (10/02/16 4:01 AM) 0.6 *LOW* (10/01/16 2:00 PM) A/G Ratio [0.7-1.6] 8.1 mg/dL *LOW* (10/17/16 4:10 AM) 8.4 mg/dL *LOW* (10/16/16 4:26 AM) 8.1 mg/dL *LOW* (10/15/16 4:32 AM) Calcium Lvl [8.5-10.5 mg/dL] 4.1 mg/dL (10/17/16 4:10 AM) 4.6 mg/dL *HI* (10/16/16 4:26 AM) 4.1 mg/dL (10/15/16 4:32 AM) Phosphorus [2.5-4.5 mg/dL] 2.1 mg/dL (10/11/16 9:51 PM) 1.8 mg/dL (10/07/16 5:50 AM) 2.2 mg/dL (10/02/16 4:01 AM) Magnesium Lvl [1.8-2.4 mg/dL] 88 unit/L *HI* (10/02/16 4:01 AM) 23 unit/L (10/01/16 2:00 PM) ALT [0-65 unit/L] 191 unit/L *HI* (10/02/16 4:01 AM) 20 unit/L (10/01/16 2:00 PM) AST [0-37 unit/L] 213 unit/L *HI* (10/02/16 4:01 AM) 109 unit/L (10/01/16 2:00 PM) Alk Phos [39-136 unit/L] 0.6 mg/dL (10/02/16 4:01 AM) 0.4 mg/dL (10/01/16 2:00 PM) Bili Total [0.2-1.3 mg/dL] 24 unit/L *LOW* (10/01/16 2:00 PM) Amylase Lvl [25-115 unit/L] 171 unit/L (10/01/16 2:00 PM) Lipase Lvl [73-393 unit/L] 1.0 mMol/L (10/01/16 5:58 PM) Lactic Acid Lvl [0.5-2.2 mMol/L] 1Result Comment: The eGFR is calculated using [...] be mul tiplied by the estimated BMI. SPECIAL CHEMISTRY 1 2 3 Most recent to oldest [Reference Range]: 13.3 % *HI* (10/02/16 4:01 AM) Hgb A1C [<=5.6 %] TOXICOLOGY 1 2 3 Most recent to oldest [Reference Range]: 04:30 *NA* (10/15/16 4:32 AM) 10:30 *NA* (10/12/16 10:33 AM) 2000 *NA* (10/10/16 7:32 PM) Vanco Tr TND 30.1 ug/ml *NA* (10/15/16 4:32 AM) 29.2 ug/ml *NA* (10/12/16 10:33 AM) 24.2 ug/ml *NA* (10/10/16 7:32 PM) Vanco Tr URINE AND STOOL 1 2 3 Most recent to oldest [Reference Range]: Clear (10/15/16 1:17 PM) Marked *ABN* (10/01/16 2:28 PM) UA Turbidity [Clear] Ltyellow *NA* (10/15/16 1:17 PM) UA Color Yellow *NA* (10/01/16 2:28 PM) UA Color [Yellow] 5.0 (10/15/16 1:17 PM) 5.0 (10/01/16 2:28 PM) UA pH [5.0-8.0] 1.006 (10/15/16 1:17 PM) 1.026 (10/01/16 2:28 PM) UA Spec Grav [<=1.030] Negative mg/dL *NA* (10/15/16 1:17 PM) 500 mg/dL *ABN* (10/01/16 2:28 PM) UA Glucose [Negative mg/dL] Negative (10/15/16 1:17 PM) Small *ABN* (10/01/16 2:28 PM) UA Blood [Negative] Negative mg/dL *NA* (10/15/16 1:17 PM) 20 mg/dL *ABN* (10/01/16 2:28 PM) UA Ketones [Negative mg/dL] Negative mg/dL (10/15/16 1:17 PM) 100 mg/dL *ABN* (10/01/16 2:28 PM) UA Protein [Negative mg/dL] <=1.0 mg/dL *NA* (10/15/16 1:17 PM) <=1.0 mg/dL *NA* (10/01/16 2:28 PM) UA Urobilinogen [0.1-1.0 mg/dL] Negative *NA* (10/15/16 1:17 PM) Negative *NA* (10/01/16 2:28 PM) UA Bili [Negative] Negative (10/15/16 1:17 PM) Moderate *ABN* (10/01/16 2:28 PM) UA Leuk Est [Negative] Negative (10/15/16 1:17 PM) Negative (10/01/16 2:28 PM) UA Nitrite [Negative] 1 /HPF (10/15/16 1:17 PM) 15 /HPF *HI* (10/01/16 2:28 PM) UA WBC [0-5 /HPF] 1 /HPF (10/15/16 1:17 PM) 31 /HPF *HI* (10/01/16 2:28 PM) UA RBC [0-2 /HPF] Many /HPF *ABN* (10/01/16 2:28 PM) UA Bacteria [None Seen /HPF] Occasional /LPF *NA* (10/15/16 1:17 PM) Few /LPF *NA* (10/01/16 2:28 PM) UA Sq Epi [Few /LPF] 2 /LPF (10/01/16 2:28 PM) UA Hyal Cast [0-2 /LPF] Few /LPF *NA* (10/01/16 2:28 PM) UA Mucus [None Seen /LPF] Moderate /HPF *ABN* (10/15/16 1:17 PM) Many /HPF *ABN* (10/01/16 2:28 PM) UA [place] Yeast [None Seen /HPF] HEMATOLOGY 1 2 3 Most recent to oldest [Reference Range]: 5.2 K/CMM (10/15/16 4:32 AM) 4.8 K/CMM (10/14/16 6:30 AM) 4.3 K/CMM (10/13/16 5:26 AM) WBC [3.7-10.4 K/CMM] 3.69 M/CMM *LOW* (10/15/16 4:32 AM) 3.51 M/CMM *LOW* (10/14/16 6:30 AM) 3.49 M/CMM *LOW* (10/13/16 5:26 AM) RBC [4.20-5.40 M/CMM] 10.8 g/dL *LOW* (10/15/16 4:32 AM) 10.4 g/dL *LOW* (10/14/16 6:30 AM) 10.4 g/dL *LOW* (10/13/16 5:26 AM) Hgb [12.0-16.0 g/dL] 32.7 % *LOW* (10/15/16 4:32 AM) 31.5 % *LOW* (10/14/16 6:30 AM) 31.3 % *LOW* (10/13/16 5:26 AM) Hct [36.0-48.0 %] 88.8 fL (10/15/16 4:32 AM) 89.8 fL (10/14/16 6:30 AM) 89.5 fL (10/13/16 5:26 AM) MCV [80.0-98.0 fL] 29.3 pg (10/15/16 4:32 AM) 29.6 pg (10/14/16 6:30 AM) 29.7 pg (10/13/16 5:26 AM) MCH [27.0-31.0 pg] 33.0 g/dL (10/15/16 4:32 AM) 33.0 g/dL (10/14/16 6:30 AM) 33.2 g/dL (10/13/16 5:26 AM) MCHC [32.0-36.0 g/dL] 13.6 % (10/15/16 4:32 AM) 13.5 % (10/14/16 6:30 AM) 13.4 % (10/13/16 5:26 AM) RDW [11.5-14.5 %] 248 K/CMM (10/15/16 4:32 AM) 214 K/CMM (10/14/16 6:30 AM) 198 K/CMM (10/13/16 5:26 AM) Platelet [133-450 K/CMM] 9.4 fL (10/15/16 4:32 AM) 9.1 fL (10/14/16 6:30 AM) 9.4 fL (10/13/16 5:26 AM) MPV [7.4-10.4 fL] 74.3 % (10/15/16 4:32 AM) 75.5 % *HI* (10/14/16 6:30 AM) 59.1 % (10/10/16 4:02 AM) Segs [45.0-75.0 %] 12.8 % *LOW* (10/15/16 4:32 AM) 13.2 % *LOW* (10/14/16 6:30 AM) 21.3 % (10/10/16 4:02 AM) Lymphocytes [20.0-40.0 %] 12.4 % *HI* (10/15/16 4:32 AM) 10.6 % (10/14/16 6:30 AM) 18.3 % *HI* (10/10/16 4:02 AM) Monocytes [2.0-12.0 %] 0.1 % (10/15/16 4:32 AM) 0.1 % (10/14/16 6:30 AM) 0.7 % (10/10/16 4:02 AM) Eosinophils [0.0-4.0 %] 0.4 % (10/15/16 4:32 AM) 0.6 % (10/14/16 6:30 AM) 0.6 % (10/10/16 4:02 AM) Basophils [0.0-1.0 %] 3.9 K/CMM (10/15/16 4:32 AM) 3.6 K/CMM (10/14/16 6:30 AM) 1.8 K/CMM (10/10/16 4:02 AM) Segs-Bands # [1.5-8.1 K/CMM] 0.7 K/CMM *LOW* (10/15/16 4:32 AM) 0.6 K/CMM *LOW* (10/14/16 6:30 AM) 0.6 K/CMM *LOW* (10/10/16 4:02 AM) Lymphocytes # [1.0-5.5 K/CMM] 0.6 K/CMM (10/15/16 4:32 AM) 0.5 K/CMM (10/14/16 6:30 AM) 0.6 K/CMM (10/10/16 4:02 AM) Monocytes # [0.0-0.8 K/CMM] 0.2 K/CMM (10/05/16 3:51 AM) 0.1 K/CMM (10/01/16 2:00 PM) Eosinophils # [0.0-0.5 K/CMM] 0.3 K/CMM *HI* (10/05/16 3:51 AM) 0.1 K/CMM (10/02/16 4:01 AM) 0.1 K/CMM (10/01/16 2:00 PM) Basophils # [0.0-0.2 K/CMM] Normal (10/10/16 4:02 AM) Normal (10/05/16 3:51 AM) RBC Morph 1+ (10/10/16 4:02 AM) Hypochrom [None Seen] Normal (10/10/16 4:02 AM) Normal (10/05/16 3:51 AM) Plt Morph Immunizations Not Given Vaccine Date Status Refusal [...] No Assessment and Plan Extracted from: Title: [facility] Author: Sae Sanchez MD Date: 10/17/16 Hospitalist Service Discharge Summary [facility] Hospitalist Service Discharge Summary PATIENT NAME: KAREN FLORES ATTENDING: SAE PIERRE JR, MD ADMISSION DATE: 10/02/2016 DISCHARGE DATE: 10/17/2016 DISCHARGE DIAGNOSIS: Acute urinary tract infection, complicated, due to Group B Strep Diabetes mellitus II, uncontrolled, with gastroparesis Morbid obesity History of cerebrovascular accident Healthcare Associated Pneumonia, unknown organism Acute kidney injury, likely vancomycin induced Debility Right knee osteoarthritis with meniscus injury CONSULTING PHYSICIANS/SERVICES: Kyle Fisher MD, Pain Management Service Ashleigh Mike MD, Pulmonary Medicine Baudilio Wren MD, Nephrology DISCHARGE CONDITION: Fair HISTORY OF PRESENT ILLNESS: Please see admission history and physical for presenting details HOSPITAL COURSE: The patient was admitted secondary to nausea and vomiting thought to be associated with a urinary tract infection. The patient has known gastroparesis and was not controlling her diabetes as demonstrated by her high A1C. She was found to have a UTI due to group B streptococcus and had some improvement in her urinary symptoms. She was started on metoclopramide for her gastroparesis and had improvement here as well. She complained of back pain, which was likely chronic, however the pain service was consulted for additional management options. She was making improvement, however became hypoxic. Initial concern was for a possible pulmonary embolism however this was ruled out with CTA of the chest, however it was discovered that the patient had developed multilobar opacities compatible with pneumonia. As she had been hospitalized numerous days, health care associated therapies were initiated. The patient required high levels of oxygen supplementation, and for assistance with pulmonary toilet and pneumonia management, the pulmonary service was consulted. Shortly after intitiation of vancomycin and zosyn, the patient was noted to have elevated vancomycin levels, and a BMP was reflective of an acute kidney injury, presumed to be due to vancomycin. Nephrology was consulted who assisted in management. Her creatinine plataued, and nephrology was in agreement with SNF as she continued to make adequate urine, with satisfactory electrolyte profile. The patient was also thought to have a possible ligamentous injury sustained within the hospital, therefore an MRI of the right knee was performed. It was found to be negative for any injury of recent acuity. The patient's oxygen requirement decreased. Her blood sugars improved on the regimen that she was discharged on, thought it was challenging to determine a good regimen in the setting of steroid use. She was found to have significant debility, therefore PT and OT evaluated the patient and found her to be suitable for SNF. SW assisted in setting this up. I saw and examined the patient on day of discharge. The patient was discharged in fair condition, with appropriate followup and appropriate medications. DISCHARGE INSTRUCTIONS: Notify Physician if any of the Following Occur : Bleeding, Fever, Nausea, Pain, Shortness of breath, Signs of infection, Swelling DISCHARGE DIET: Home Diet : Diet Carbohydrate Controlled DISCHARGE MEDICATIONS: PLEASE SEE HMR FOR DETAILS PERTAINING TO DISCHARGE MEDICATIONS DISCHARGE FOLLOWUP: Follow-Up With Provider : physician, physician #2 Provider #1 : Byron Vera MD (PATIENT REQUESTED NEW PRIMARY CARE PHYSICIAN) Follow-Up Call : Call for appointment Follow-up with Provider within : 2 Weeks Reason : Establish Primary Care Physician Provider #2 : Ashleigh Mike MD Follow-Up Call : Call for appointment Follow-up with Provider #2 within : 2 Weeks Reason : Follow Up On Treatment and plan for sleep study A total of 34 minutes was spent planning discharge which included bedside counseling. Extracted from: Title: Clinical Document Author: Baudilio Wren MD Date: 10/17/16 Progress Note - Daily [facility] Completed: , OCT 17, 2016, 13:36 by Baudilio Wren MD RM: [id number] - 1P, SE KAREN CLARK [id number] (: 1955) F Attending: Sae Sanchez MDPhone: Service: Internal Medicine Reason for Admission: PYELO, UNABLE TO TOLERATE PO Working DRG: Kidney & urinary tract infections w ALF Code status: None Specified=FULL CODECurrent diet: Isolation: Contact [Ordered] Allergies: Januvia, metformin, influenza virus vaccine, inactivated(Influenza virus vaccine) SUBJECTIVE Feels well No new events Records reviewed D/w pt and family D/w staff She feels OK Srtill weak Still edematous Less SOB No CP Eating well ROS No CP + SOB No nausea/emesis No abd pain Normal Bms No dizzyness + edema OBJECTIVE Gen: NAD, resting comfortably Heent: PERRLA, EOMI, NC/AT, MMM, OP clear Neck: NO JVD Chest: CTAB, decreased BS CVS: RRR Abd: Soft, bs+, nt, nd+ Ext: + edema : No pressley catheter Neuro: A+O x3 24hr Labs 10/17 1105 Glucose OGO447 H 10/17 0544 Glucose SFM696 H 10/17 0410 Glucose Jgs999 H BUN65 H Creatinine Lvl2.70 H Sodium Jhs435 Potassium Lvl5.0 Chloride Lvl99 CO231 AGAP13.0 Calcium Lvl8.1 L Phosphorus4.1 Albumin Lvl2.5 L eGFR18 10/17 0218 Glucose DHL612 H 10/16 2055 Glucose SBC313 H 10/16 1519 Glucose UTI744 H Pressley still necessary (Yes/No): Line still necessary (Yes/No): VitalsTmp(F)[id number] 10/17 12:0097.5 10/17 10:12 4.0L/m 10/17 08:29----98-----1994 4.0L/m 10/17 07:3197.269130/270631 4.0L/m 10/17 07:00----99-----20------ 24 Hr Tmax: 98.4F (36.89c) at 10/17 00:00Vital Signs are the last 5 in the past 48 hours. DateWt(kg)Wt(lb)Ht(cm)Ht(in)Method .36 [id number] 65.00Measured 10/01 (initial)116.36 256.00Estimated 65.10 65.00Stated I&ORecordInOutBal 0124hr Tot 83 0 83 4hr Tot 1027 0 1027 Medications (42) Active Scheduled Meds (21): 10/16/16 (Suspended) NIFEdipine (NIFEdipine 30 mg oral tablet, extended release) 30 mg PO Daily 10/10/16 acetylcysteine (acetylcysteine 10% inhalation solution) 200 mg NEB RQID 10/10/16 clonazePAM 0.5 mg PO TID 10/03/16 dicyclomine 20 mg PO QID 10/14/16 (Suspended) furosemide (Lasix) 40 mg IVP Daily 10/16/16 furosemide (Lasix) 60 mg IVP Daily 10/14/16 (Suspended) gabapentin (gabapentin 300 mg oral capsule) 300 mg PO BID 10/04/16 glimepiride 2 mg PO Breakfast 10/10/16 guaiFENesin (Mucinex) 600 mg PO Q12H 10/12/16 heparin 5,000 unit SUB-Q Q12H 10/07/16 hydrALAZINE (hydrALAZINE 25 mg oral tablet) 50 mg PO TID 10/14/16 (Suspended) hydrochlorothiazide 25 mg PO Daily 10/03/16 insulin aspart (NovoLOG FlexPen) 10 unit SUB-Q TID-Before Meals 10/05/16 insulin detemir (Levemir) 25 unit SUB-Q Q12H 10/14/16 (Suspended) lisinopril 40 mg PO Daily 10/14/16 meropenem + sodium chloride 0.9% INJ 100 mL (Merrem + sodium chloride 0.9% INJ 100 mL) 500 mg IVPB ABXQ8H 33.33 ml/hr 10/07/16 metoclopramide (Reglan) 5 mg PO Before Meals & Bedtime 10/03/16 nystatin-triamcinolone topical (nystatin-triamcinolone topical cream) 1 appl TOP BID 10/03/16 pantoprazole 40 mg PO Before Dinner 10/13/16 predniSONE 40 mg PO Daily 10/14/16 (Suspended) vancomycin 1.75 gm IVPB [id number] 250 ml/hr Unscheduled Meds: None PRN Meds (21): 10/12/16 Dextrose 50% in Water IV (Dextrose 50% Syringe) 12.5 gm IVP PRN 10/12/16 Dextrose 50% in Water IV (Dextrose 50% Syringe) 25 gm IVP PRN 10/17/16 acetaminophen-oxycodone (Percocet 5/325 oral tablet) 1 tab PO Q12H 10/06/16 albuterol-ipratropium 3 mL NEB RQ2H 10/04/16 cloNIDine 0.1 mg PO Q8H 10/02/16 diphenhydrAMINE (Benadryl) 25 mg PO Q8H 10/12/16 glucagon 1 mg IM PRN 10/12/16 insulin aspart 3 unit SUB-Q TID-Before Meals 10/12/16 insulin aspart 6 unit SUB-Q TID-Before Meals 10/12/16 insulin aspart 9 unit SUB-Q TID-Before Meals 10/12/16 insulin aspart 12 unit SUB-Q TID-Before Meals 10/12/16 insulin aspart 15 unit SUB-Q TID-Before Meals 10/12/16 insulin aspart 1 unit SUB-Q Bedtime 10/12/16 insulin aspart 2 unit SUB-Q Bedtime 10/12/16 insulin aspart 3 unit SUB-Q Bedtime 10/12/16 insulin aspart 4 unit SUB-Q Bedtime 10/04/16 lactulose 20 gm PO Daily 10/14/16 (Suspended) magnesium hydroxide (Milk of Magnesia) 30 ml PO Q6H 10/01/16 ondansetron 4 mg IVP Q6H 10/01/16 sodium chloride (Saline Flush 0.9%) 10 ml IVP PRN 10/12/16 tramadol 50 mg PO Q12H One Time Meds: None Continuous Infusions: None ASSESSMENT & EXAM CKDII.. nl baseline Cr AK 2/2 vanco/zosyn related ATN +/- contrast nephropathy HCAP Hypoxemia HTN Vol excess Pulm edema DMII Obesity Mild delirium, likely med related Plan: Change to PO lasix Ok to d/c Avoid hypotension Outpt f/u in 7 days
--- OUTSIDE RECORDS SUMMARY | 2019-03-23 18:40 | XMS REPORT | Summary of Care ---
Author Author [facility] Organization [facility] Address Unknown Phone Unavailable Encounter KENROY Aguayo(JOVANNY) [id number] Date(s): 12/31/16 - 01/01/17 [facility] [address] [place] [address]- [phone] Discharge Diagnosis: Acute left flank pain Discharge Disposition: Home or Self Care Attending Physician: Chelsey Ojeda DO Vital Signs 1 2 3 Most recent to oldest [Reference Range]: 167.64 cm (12/31/16 10:42 PM) Height 97.6 DegF (01/01/17 1:46 AM) 97.7 DegF (12/31/16 10:42 PM) Temperature Oral [96.4-99.1 DegF] 155/63 mmHg *HI* (01/01/17 1:46 AM) 168/60 mmHg *HI* (01/01/17 1:04 AM) 195/99 mmHg *HI* (12/31/16 10:42 PM) Blood Pressure [90-140/60-90 mmHg] 20 BRMIN (01/01/17 1:46 AM) 20 BRMIN (01/01/17 1:04 AM) 20 BRMIN (12/31/16 10:42 PM) Respiratory Rate [14-20 BRMIN] 75 bpm (01/01/17 1:46 AM) 80 bpm (01/01/17 1:04 AM) 91 bpm (12/31/16 10:42 PM) Peripheral Pulse Rate [60-100 bpm] 113.636 kg (12/31/16 10:42 PM) Weight 40.44 m2 (12/31/16 10:42 PM) Body Mass Index Problem List Condition [...] Active VRE(Confirmed)6 Active 1heart 2Data migrated from [employer] on 07/11/15. - in urine 4Problem added by Discern Expert. 5Data migrated from [employer] on 07/11/15. 6Problem added by Discern Expert. Allergies, Adverse Reactions, Alerts Substance Reaction Severity Status influenza virus vaccine, Influenza virus vaccine Active inactivated Januvia Active metformin Active Medications morphine Sulfate 4 mg, Route: IVP, ONCE, Dosing Weight 113.636, kg, Priority: STAT, Start date: 0 01/01/17 0:55:00 [employer], Stop date: 01/01/17 0:55:00 [employer] Start Date: 01/01/17 Stop Date: 01/01/17 Status: Completed ondansetron 4 mg, Route: IVP, Drug form: INJ, ONCE, Dosing Weight 113.636, kg, Priority: STA T, Start date: 01/01/17 0:55:00 [employer], Stop date: 01/01/17 0:55:00 [employer] Start Date: 01/01/17 Stop Date: 01/01/17 Status: Completed Ultram 50 mg oral tablet 50 mg=1 tab, PO, Q4H, PRN pain, X 3 day, # 18 tab, 0 Refill(s) Start Date: 01/01/17 Stop Date: 01/04/17 Status: Ordered Results ELECTROLYTES Most recent to 1 oldest [Reference Range]: Sodium Lvl [135-145 142 mEq/L mEq/L] (12/31/16 11:42 PM) Potassium Lvl 3.7 mEq/L [3.5-5.1 mEq/L] (12/31/16 11:42 PM) Chloride Lvl [95-109 104 mEq/L mEq/L] (12/31/16 11:42 PM) CO2 [24-32 mEq/L] 30 mEq/L (12/31/16 11:42 PM) AGAP [10.0-20.0 11.7 mEq/L mEq/L] (12/31/16 11:42 PM) CHEM PANEL Most recent to 1 oldest [Reference Range]: Creatinine Lvl 1.10 mg/dL [0.50-1.40 mg/dL] (12/31/16 11:42 PM) eGFR 54 mL/min/1.73m2 1 *NA* (12/31/16 11:42 PM) BUN [7-22 mg/dL] 25 mg/dL *HI* (12/31/16 11:42 PM) Glucose Lvl [70-99 135 mg/dL mg/dL] *HI* (12/31/16 11:42 PM) Calcium Lvl 8.7 mg/dL [8.5-10.5 mg/dL] (12/31/16 11:42 PM) 1Result Comment: The eGFR is calculated [...] 1 oldest [Reference Range]: UA Turbidity [Clear] Slight *ABN* (12/31/16 11:34 PM) UA Color Ltyellow *NA* (12/31/16 11:34 PM) UA pH [5.0-8.0] 6.0 (12/31/16 11:34 PM) UA Spec Grav 1.009 [<=1.030] (12/31/16 11:34 PM) UA Glucose [Negative Negative mg/dL mg/dL] *NA* (12/31/16 11:34 PM) UA Blood [Negative] Moderate *ABN* (12/31/16 11:34 PM) UA Ketones [Negative Negative mg/dL mg/dL] *NA* (12/31/16 11:34 PM) UA Protein [Negative 100 mg/dL mg/dL] *ABN* (12/31/16 11:34 PM) UA Urobilinogen <=1.0 mg/dL [0.1-1.0 mg/dL] *NA* (12/31/16 11:34 PM) UA Bili [Negative] Negative *NA* (12/31/16 11:34 PM) UA Leuk Est Moderate [Negative] *ABN* (12/31/16 11:34 PM) UA Nitrite Negative [Negative] (12/31/16 11:34 PM) UA WBC [0-5 /HPF] 16 /HPF *HI* (12/31/16 11:34 PM) UA RBC [0-2 /HPF] 15 /HPF *HI* (12/31/16 11:34 PM) UA Sq Epi [Few /LPF] Occasional /LPF *NA* (12/31/16 11:34 PM) HEMATOLOGY Most recent to 1 oldest [Reference Range]: WBC [3.7-10.4 K/CMM] 5.7 K/CMM (12/31/16 11:42 PM) RBC [4.20-5.40 3.70 M/CMM M/CMM] *LOW* (12/31/16 11:42 PM) Hgb [12.0-16.0 g/dL] 11.1 g/dL *LOW* (12/31/16 11:42 PM) Hct [36.0-48.0 %] 32.6 % *LOW* (12/31/16 11:42 PM) MCV [80.0-98.0 fL] 88.2 fL (12/31/16 11:42 PM) MCH [27.0-31.0 pg] 29.9 pg (12/31/16 11:42 PM) MCHC [32.0-36.0 33.9 g/dL g/dL] (12/31/16 11:42 PM) RDW [11.5-14.5 %] 14.5 % (12/31/16 11:42 PM) Platelet [133-450 285 K/CMM K/CMM] (12/31/16 11:42 PM) MPV [7.4-10.4 fL] 8.5 fL (12/31/16 11:42 PM) Segs [45.0-75.0 %] 54.0 % (12/31/16 11:42 PM) Lymphocytes 27.0 % [20.0-40.0 %] (12/31/16 11:42 PM) Monocytes [2.0-12.0 12.9 % %] *HI* (12/31/16 11:42 PM) Eosinophils [0.0-4.0 4.8 % %] *HI* (12/31/16 11:42 PM) Basophils [0.0-1.0 1.3 % %] *HI* (12/31/16 11:42 PM) Segs-Bands # 3.1 K/CMM [1.5-8.1 K/CMM] (12/31/16 11:42 PM) Lymphocytes # 1.5 K/CMM [1.0-5.5 K/CMM] (12/31/16 11:42 PM) Monocytes # [0.0-0.8 0.7 K/CMM K/CMM] (12/31/16 11:42 PM) Eosinophils # 0.3 K/CMM [0.0-0.5 K/CMM] (12/31/16 11:42 PM) Basophils # [0.0-0.2 0.1 K/CMM K/CMM] (12/31/16 11:42 PM) PT [12.0-14.7 13.8 seconds seconds] (12/31/16 11:42 PM) INR [0.85-1.17] 1.04 (12/31/16 11:42 PM) PTT [22.9-35.8 28.6 seconds seconds] (12/31/16 11:42 PM) Immunizations Not Given Vaccine Date Status [...]
--- OUTSIDE RECORDS SUMMARY | 2019-03-23 18:40 | XMS REPORT | Summary of Care ---
Author Author [facility] Organization [facility] Address Unknown Phone Unavailable Encounter KENROY Aguayo(JOVANNY) [id number] Date(s): 11/11/16 - 11/15/16 [facility] [address] [place] [address]- Discharge Disposition: Home or Self Care Attending Physician: Faisal Joseph MD Admitting Physician: Faisal Joseph MD Vital Signs 1 2 3 Most recent to oldest [Reference Range]: 160.02 cm (11/11/16 7:44 PM) Height 97.9 DegF (11/15/16 3:54 PM) 97.9 DegF (11/15/16 11:21 AM) 98.4 DegF (11/15/16 9:01 AM) Temperature Oral [96.4-99.1 DegF] 159/82 mmHg *HI* (11/15/16 3:54 PM) 157/85 mmHg *HI* (11/15/16 11:21 AM) 146/80 mmHg *HI* (11/15/16 9:01 AM) Blood Pressure [90-140/60-90 mmHg] 18 BRMIN (11/15/16 3:54 PM) 16 BRMIN (11/15/16 11:21 AM) 16 BRMIN (11/15/16 9:01 AM) Respiratory Rate [14-20 BRMIN] 80 bpm (11/15/16 3:54 PM) 79 bpm (11/15/16 11:21 AM) 84 bpm (11/15/16 9:01 AM) Peripheral Pulse Rate [60-100 bpm] 109.091 kg (11/11/16 7:44 PM) Weight 42.6 m2 (11/11/16 7:44 PM) Body Mass Index Problem List Condition [...] Active VRE(Confirmed)6 Active 1heart 2Data migrated from [employer] on 07/11/15. - in urine 4Problem added by Discern Expert. 5Data migrated from [employer] on 07/11/15. 6Problem added by Discern Expert. Allergies, Adverse Reactions, Alerts Substance Reaction Severity Status influenza virus vaccine, Influenza virus vaccine Active inactivated Januvia Active metformin Active Medications Anaspaz 0.125 mg, 1 tab, Route: PO, Drug form: TAB, Q4H, Dosing Weight 109.091, kg, PRN Spasm, Start date: 11/14/16 12:51:00 [employer], Duration: 30 day, Stop date: 12/14/16 12:50:00 [employer] Notes: (Same as: Levsin) Take 30 min before meal Start Date: 11/14/16 Stop Date: 11/15/16 Status: Discontinued cefepime + sodium chloride 0.9% INJ 100 mL 1 gm, Route: IVPB, [id number], Dosing Weight 109.091, kg, (CrCl 30 - 49 ml/min), St art date: 11/12/16 6:00:00 [employer], Duration: 30 day, Stop date: 12/11/16 18:00:[address] Notes: (Same As: Maxipime) MEDICATION WASTE Product Size: 1000 mgProduc t Wasted: ___ mg Start Date: 11/12/16 Stop Date: 11/14/16 Status: Discontinued cefTRIAXone + sodium chloride 0.9% INJ 100 mL 1 gm, Route: IVPB, [id number], Dosing Weight 109.091, kg, Start date: 11/14/16 16:0 0:00 [employer], Duration: 30 day, Stop date: 12/13/16 16:00:00 [employer] Notes: (Same As: Rocephin).Use with 100 mL NS and infuse over 30 min MEDICA TION WASTE Product Size: 1000 mgProduct Wasted: ___ mg Start Date: 11/14/16 Stop Date: 11/15/16 Status: Discontinued cephalexin 500 mg, 2 cap, Route: PO, Drug form: CAP, [id number], Dosing Weight 109.091, kg, St art date: 11/15/16 14:00:00 [employer], Duration: 10 day, Stop date: 11/25/16 2:00:[address] Notes: Take on empty stomach. (Same As: Keflex) Start Date: 11/15/16 Stop Date: 11/15/16 Status: Discontinued cephalexin 500 mg, Route: PO, Drug form: CAP, [id number], Dosing Weight 109.091, kg, Start date : 11/15/16 14:00:00 [employer], Duration: 10 day, Stop date: 11/25/16 8:00:00 [employer] Start Date: 11/15/16 Stop Date: 11/15/16 Status: Canceled cephalexin 250 mg oral capsule 500 mg=2 cap, PO, [id number], 0 Refill(s) Start Date: 11/15/16 Status: Ordered clonazePAM 0.5 mg, 1 tab, Route: PO, Drug form: TAB, TID, Dosing Weight 109.091, kg, Start date: 11/13/16 9:00:00 [employer], Duration: 30 day, Stop date: 12/12/16 21:00:00 [employer] Notes: (Same As: KlonoPIN) Start Date: 11/13/16 Stop Date: 11/13/16 Status: Discontinued clonazePAM 0.5 mg, 1 tab, Route: PO, Drug form: TAB, BID, Dosing Weight 109.091, kg, Start date: 11/14/16 9:00:00 [employer], Duration: 30 day, Stop date: 12/13/16 17:00:00 [employer] Notes: (Same As: KlonoPIN) Start Date: 11/14/16 Stop Date: 11/15/16 Status: Discontinued cloNIDine 0.1 mg oral tablet 0.1 mg, 1 tab, Route: PO, Drug form: TAB, Q8H, Dosing Weight 109.091, kg, PRN El evated BP, Start date: 11/13/16 8:55:00 [employer], Duration: 30 day, Stop date: 8:54:00 [employer], sbp> 170 Notes: (Same As: Chelseyapres) Start Date: 11/13/16 Stop Date: 11/15/16 Status: Discontinued Dextrose 50% Syringe 25 gm, 50 mL, Route: IVP, Drug Form: INJ, Dosing Weight 109.091, kg, PRN, PRN Bl ood Glucose Results, Start date: 11/13/16 8:58:00 [employer], Duration: 30 day, Stop da te: 12/13/16 8:57:00 [employer] Start Date: 11/13/16 Stop Date: 11/15/16 Status: Discontinued Dextrose 50% Syringe 12.5 gm, 25 mL, Route: IVP, Drug Form: INJ, Dosing Weight 109.091, kg, PRN, PRN Blood Glucose Results, Start date: 11/13/16 8:58:00 [employer], Duration: 30 day, Stop date: 12/13/16 8:57:00 [employer] Start Date: 11/13/16 Stop Date: 11/15/16 Status: Discontinued Dextrose 50% Syringe 12.5 gm, 25 mL, Route: IVP, Drug Form: INJ, Dosing Weight 109.091, kg, PRN, PRN Blood Glucose Results, Start date: 11/12/16 5:14:00 [employer], Duration: 30 day, Stop date: 12/12/16 5:13:00 [employer] Start Date: 11/12/16 Stop Date: 11/13/16 Status: Discontinued Dextrose 50% Syringe 25 gm, 50 mL, Route: IVP, Drug Form: INJ, Dosing Weight 109.091, kg, PRN, PRN Bl ood Glucose Results, Start date: 11/12/16 5:14:00 [employer], Duration: 30 day, Stop da te: 12/12/16 5:13:00 [employer] Start Date: 11/12/16 Stop Date: 11/13/16 Status: Discontinued dicyclomine 20 mg, 1 tab, Route: PO, Drug form: TAB, QID, Dosing Weight 109.091, kg, Start d ate: 11/13/16 9:00:00 [employer], Duration: 30 day, Stop date: 12/12/16 21:00:00 [employer] Notes: (Same as: Bentyl) Start Date: 11/13/16 Stop Date: 11/13/16 Status: Discontinued glimepiride 2 mg, 2 tab, Route: PO, Drug form: TAB, Breakfast, Dosing Weight 109.091, kg, St art date: 11/13/16 9:00:00 [employer], Duration: 30 day, Stop date: 12/13/16 8:00:00 CS T Notes: (Same as: Amaryl) Start Date: 11/13/16 Stop Date: 11/15/16 Status: Discontinued glucagon 1 mg, Route: IM, Drug form: PDR/INJ, PRN, Dosing Weight 109.091, kg, PRN Blood G lucose Results, Start date: 11/13/16 8:58:00 [employer], Duration: 30 day, Stop date: 0 12/13/16 8:57:00 [employer] Start Date: 11/13/16 Stop Date: 11/15/16 Status: Discontinued glucagon 1 mg, Route: IM, Drug form: PDR/INJ, PRN, Dosing Weight 109.091, kg, PRN Blood G lucose Results, Start date: 11/12/16 5:14:00 [employer], Duration: 30 day, Stop date: 0 12/12/16 5:13:00 [employer] Start Date: 11/12/16 Stop Date: 11/13/16 Status: Discontinued heparin 5,000 unit, 1 mL, Route: SUB-Q, Drug form: INJ, Q8H, Dosing Weight 109.091, kg, Start date: 11/12/16 8:00:00 [employer], Duration: 30 day, Stop date: 12/12/16 0:00:00 [employer] Notes: porcine heparin Start Date: 11/12/16 Stop Date: 11/15/16 Status: Discontinued hydrALAZINE 25 mg oral tablet 50 mg, 2 tab, Route: PO, Drug form: TAB, TID, Dosing Weight 109.091, kg, Start d ate: 11/13/16 9:00:00 [employer], Duration: 30 day, Stop date: 12/12/16 17:00:00 [employer] Start Date: 11/13/16 Stop Date: 11/13/16 Status: Canceled hydrALAZINE 25 mg oral tablet 25 mg, 1 tab, Route: PO, Drug form: TAB, Q8H, Dosing Weight 109.091, kg, Start d ate: 11/12/16 8:00:00 [employer], Duration: 30 day, Stop date: 12/12/16 0:00:00 [employer] Notes: (Same as: Apresoline) May interfere w/enteral feedings Take With Food. Start Date: 11/12/16 Stop Date: 11/12/16 Status: Discontinued hyoscyamine 0.125 mg sublingual tablet 0.125 mg=1 tab, PO, Q4H, PRN Spasm, 0 Refill(s) Start Date: 11/15/16 Status: Ordered insulin aspart 3 unit, 0.03 mL, Route: SUB-Q, Drug form: SOLN, TID-Before Meals, Dosing Weight 109.091, kg, PRN Blood Glucose Results, Start date: 11/13/16 8:58:00 [employer], Durati on: 30 day, Stop date: 12/13/16 8:57:00 [employer] Notes: Roll in palms of hands gently; Do not shake vigorously. (Same as: Manuel Garcia)"single patient use only"WASTE: F/P - Black; E - Municipal Trash Bin Stable f or 28 days at room temperature.Expires in days from Date Start Date: 11/13/16 Stop Date: 11/15/16 Status: Discontinued insulin aspart 1 unit, 0.01 mL, Route: SUB-Q, Drug form: SOLN, Bedtime, Dosing Weight 109.091, kg, PRN Blood Glucose Results, Start date: 11/13/16 8:58:00 [employer], Duration: 30 da y, Stop date: 12/13/16 8:57:00 [employer] Notes: Roll in palms of hands gently; Do not shake vigorously. (Same as: Manuel Garcia)"single patient use only"WASTE: F/P - Black; E - Municipal Trash Bin Stable f or 28 days at room temperature.Expires in days from Date Start Date: 11/13/16 Stop Date: 11/15/16 Status: Discontinued insulin aspart 2 unit, 0.02 mL, Route: SUB-Q, Drug form: SOLN, Bedtime, Dosing Weight 109.091, kg, PRN Blood Glucose Results, Start date: 11/13/16 8:58:00 [employer], Duration: 30 da y, Stop date: 12/13/16 8:57:00 [employer] Notes: Roll in palms of hands gently; Do not shake vigorously. (Same as: Manuel Garcia)"single patient use only"WASTE: F/P - Black; E - Municipal Trash Bin Stable f or 28 days at room temperature.Expires in days from Date Start Date: 11/13/16 Stop Date: 11/15/16 Status: Discontinued insulin aspart 3 unit, 0.03 mL, Route: SUB-Q, Drug form: SOLN, Bedtime, Dosing Weight 109.091, kg, PRN Blood Glucose Results, Start date: 11/13/16 8:58:00 [employer], Duration: 30 da y, Stop date: 12/13/16 8:57:00 [employer] Notes: Roll in palms of hands gently; Do not shake vigorously. (Same as: Manuel Garcia)"single patient use only"WASTE: F/P - Black; E - Municipal Trash Bin Stable f or 28 days at room temperature.Expires in days from Date Start Date: 11/13/16 Stop Date: 11/15/16 Status: Discontinued insulin aspart 4 unit, 0.04 mL, Route: SUB-Q, Drug form: SOLN, Bedtime, Dosing Weight 109.091, kg, PRN Blood Glucose Results, Start date: 11/13/16 8:58:00 [employer], Duration: 30 da y, Stop date: 12/13/16 8:57:00 [employer] Notes: Roll in palms of hands gently; Do not shake vigorously. (Same as: Manuel Garcia)"single patient use only"WASTE: F/P - Black; E - Municipal Trash Bin Stable f or 28 days at room temperature.Expires in days from Date Start Date: 11/13/16 Stop Date: 11/15/16 Status: Discontinued insulin aspart 6 unit, 0.06 mL, Route: SUB-Q, Drug form: SOLN, TID-Before Meals, Dosing Weight 109.091, kg, PRN Blood Glucose Results, Start date: 11/13/16 8:58:00 [employer], Durati on: 30 day, Stop date: 12/13/16 8:57:00 [employer] Notes: Roll in palms of hands gently; Do not shake vigorously. (Same as: Manuel Garcia)"single patient use only"WASTE: F/P - Black; E - Municipal Trash Bin Stable f or 28 days at room temperature.Expires in days from Date Start Date: 11/13/16 Stop Date: 11/15/16 Status: Discontinued insulin aspart 9 unit, 0.09 mL, Route: SUB-Q, Drug form: SOLN, TID-Before Meals, Dosing Weight 109.091, kg, PRN Blood Glucose Results, Start date: 11/13/16 8:58:00 [employer], Durati on: 30 day, Stop date: 12/13/16 8:57:00 [employer] Notes: Roll in palms of hands gently; Do not shake vigorously. (Same as: Manuel Garcia)"single patient use only"WASTE: F/P - Black; E - Municipal Trash Bin Stable f or 28 days at room temperature.Expires in days from Date Start Date: 11/13/16 Stop Date: 11/15/16 Status: Discontinued insulin aspart 12 unit, 0.12 mL, Route: SUB-Q, Drug form: SOLN, TID-Before Meals, Dosing Weight 109.091, kg, PRN Blood Glucose Results, Start date: 11/13/16 8:58:00 [employer], Durat ion: 30 day, Stop date: 12/13/16 8:57:00 [employer] Notes: Roll in palms of hands gently; Do not shake vigorously. (Same as: NovoJUANA G)"single patient use only"WASTE: F/P - Black; E - Municipal Trash Bin Stable f or 28 days at room temperature.Expires in days from Date Start Date: 11/13/16 Stop Date: 11/15/16 Status: Discontinued insulin aspart 15 unit, 0.15 mL, Route: SUB-Q, Drug form: SOLN, TID-Before Meals, Dosing Weight 109.091, kg, PRN Blood Glucose Results, Start date: 11/13/16 8:58:00 [employer], Durat ion: 30 day, Stop date: 12/13/16 8:57:00 [employer] Notes: Roll in palms of hands gently; Do not shake vigorously. (Same as: NovoJUANA G)"single patient use only"WASTE: F/P - Black; E - Municipal Trash Bin Stable f or 28 days at room temperature.Expires in days from Date Start Date: 11/13/16 Stop Date: 11/15/16 Status: Discontinued insulin aspart 15 unit, 0.15 mL, Route: SUB-Q, Drug form: SOLN, TID-Before Meals, Dosing Weight 109.091, kg, PRN Blood Glucose Results, Start date: 11/12/16 5:14:00 [employer], Durat ion: 30 day, Stop date: 12/12/16 5:13:00 [employer] Notes: Roll in palms of hands gently; Do not shake vigorously. (Same as: NovoJUANA G)"single patient use only"WASTE: F/P - Black; E - Municipal Trash Bin Stable f or 28 days at room temperature.Expires in days from Date Start Date: 11/12/16 Stop Date: 11/13/16 Status: Discontinued insulin aspart 12 unit, 0.12 mL, Route: SUB-Q, Drug form: SOLN, TID-Before Meals, Dosing Weight 109.091, kg, PRN Blood Glucose Results, Start date: 11/12/16 5:14:00 [employer], Durat ion: 30 day, Stop date: 12/12/16 5:13:00 [employer] Notes: Roll in palms of hands gently; Do not shake vigorously. (Same as: Manuel Garcia)"single patient use only"WASTE: F/P - Black; E - Municipal Trash Bin Stable f or 28 days at room temperature.Expires in days from Date Start Date: 11/12/16 Stop Date: 11/13/16 Status: Discontinued insulin aspart 3 unit, 0.03 mL, Route: SUB-Q, Drug form: SOLN, TID-Before Meals, Dosing Weight 109.091, kg, PRN Blood Glucose Results, Start date: 11/12/16 5:14:00 [employer], Durati on: 30 day, Stop date: 12/12/16 5:13:00 [employer] Notes: Roll in palms of hands gently; Do not shake vigorously. (Same as: Manuel Garcia)"single patient use only"WASTE: F/P - Black; E - Municipal Trash Bin Stable f or 28 days at room temperature.Expires in days from Date Start Date: 11/12/16 Stop Date: 11/13/16 Status: Discontinued insulin aspart 6 unit, 0.06 mL, Route: SUB-Q, Drug form: SOLN, TID-Before Meals, Dosing Weight 109.091, kg, PRN Blood Glucose Results, Start date: 11/12/16 5:14:00 [employer], Durati on: 30 day, Stop date: 12/12/16 5:13:00 [employer] Notes: Roll in palms of hands gently; Do not shake vigorously. (Same as: Manuel Garcia)"single patient use only"WASTE: F/P - Black; E - Municipal Trash Bin Stable f or 28 days at room temperature.Expires in days from Date Start Date: 11/12/16 Stop Date: 11/13/16 Status: Discontinued insulin aspart 9 unit, 0.09 mL, Route: SUB-Q, Drug form: SOLN, TID-Before Meals, Dosing Weight 109.091, kg, PRN Blood Glucose Results, Start date: 11/12/16 5:14:00 [employer], Durati on: 30 day, Stop date: 12/12/16 5:13:00 [employer]IC Notes: Roll in palms of hands gently; Do not shake vigorously. (Same as: Manuel Garcia)"single patient use only"WASTE: F/P - Black; E - Municipal Trash Bin Stable f or 28 days at room temperature.Expires in days from Date Start Date: 11/12/16 Stop Date: 11/13/16 Status: Discontinued Keflex 500 mg oral capsule 500 mg=1 cap, PO, BID, X 10 day, # 20 cap, 0 Refill(s), Pharmacy: [facility] [id number] Start Date: 11/15/16 Stop Date: 11/25/16 Status: Ordered Lasix 40 mg oral tablet 40 mg, 1 tab, Route: PO, Drug form: TAB, BID, Dosing Weight 109.091, kg, Start d ate: 11/13/16 9:00:00 [employer], Duration: 30 day, Stop date: 12/12/16 17:00:00 [employer] Notes: (Same as: Lasix) May cause GI upset. Give with food or milk. Start Date: 11/13/16 Stop Date: 11/15/16 Status: Discontinued Levemir 20 unit, 0.2 mL, Route: SUB-Q, Drug form: INJ, Daily, Dosing Weight 109.091, kg, Start date: 11/12/16 9:00:00 [employer], Duration: 30 day, Stop date: 12/11/16 9:00:00 [employer] Notes: Same as LevemirDo not hold insulin without contacting prescriberWASTE: F/ P - Black; E - Municipal Trash Bin "single patient use only" Start Date: 11/12/16 Stop Date: 11/15/16 Status: Discontinued linezolid 600 mg, 300 mL, Route: IV, Drug form: SOLN, ONCE, Dosing Weight 109.091, kg, Sta rt date: 11/12/16 4:07:00 [employer], Stop date: 11/12/16 4:07:00 [employer]IC Notes: (Same as: Zyvox) Start Date: 11/12/16 Stop Date: 11/12/16 Status: Completed lisinopril 30 mg, 1.5 tab, Route: PO, Drug form: TAB, Daily, Dosing Weight 109.091, kg, Sta rt date: 11/13/16 9:00:00 [employer], Duration: 30 day, Stop date: 12/12/16 9:00:00 [employer] Notes: (Same as: Prinivil, Zestril) Start Date: 11/13/16 Stop Date: 11/15/16 Status: Discontinued morphine Sulfate 4 mg, Route: IVP, ONCE, Dosing Weight 109.091, kg, PRN Chest Pain, Start date: 1 01/13/16 6:41:00 [employer] Start Date: 11/12/16 Stop Date: 11/12/16 Status: Completed morphine Sulfate 4 mg, 1 mL, Route: IVP, Drug form: SOLN, Q4H, Dosing Weight 109.091, kg, PRN Lizeth n Score 7-10, Start date: 11/12/16 6:52:00 [employer], Duration: 30 day, Stop date: 6:51:00 [employer]IC Notes: (Same as:MORPhine Sulfate) Start Date: 11/12/16 Stop Date: 11/15/16 Status: Discontinued NexIUM 40 mg, Route: PO, Drug form: ECCAP, Daily, Dosing Weight 109.091, kg, Start date : 11/13/16 9:00:00 [employer], Duration: 30 day, Stop date: 12/12/16 9:00:00 [employer] Start Date: 11/13/16 Stop Date: 11/13/16 Status: Deleted NexIUM 40 mg, Route: PO, Drug form: ECCAP, Daily, Dosing Weight 109.091, kg, Start date : 11/12/16 9:00:00 [employer], Duration: 30 day, Stop date: 12/11/16 9:00:00 [employer]IC Start Date: 11/12/16 Stop Date: 11/12/16 Status: Deleted Anson 5/325 oral tablet 1 tab, Route: PO, Drug Form: TAB, Dosing Weight 109.091, kg, Q6H, PRN Pain Score 1-3, Start date: 11/14/16 12:50:00 [employer], Duration: 30 day, Stop date: 12/14/16 1 2:49:00 [employer]IC Notes: (Same as: Anson 325/5) Do not exceed 4gm/day of acetaminophen. Start Date: 11/14/16 Stop Date: 11/15/16 Status: Discontinued nystatin-triamcinolone topical cream 1 appl, Route: TOP, BID, Drug form: CRM, Start date: 11/13/16 9:00:00 [employer], Durat ion: 30 day, Stop date: 12/12/16 17:00:00 [employer]CH[employer]IC Notes: For External Use Only (Same as:Mycolog II cream) Start Date: 11/13/16 Stop Date: 11/15/16 Status: Discontinued piperacillin-tazobactam 3.375 gm, Route: IVPB, Drug form: PDR/INJ, ONCE, Dosing Weight 109.091, kg, Prio rity: STAT, Start date: 11/12/16 3:36:00 [employer], Stop date: 11/12/16 3:36:00 [employer]IC Start Date: 11/12/16 Stop Date: 11/12/16 Status: Discontinued Protonix 40 mg, 1 tab, Route: PO, Drug form: ECTAB, Daily, Start date: 11/12/16 9:00:[address], Duration: 30 day, Stop date: 12/11/16 9:00:00 [employer] Notes: Tablet should not be chewed or crushed.(Same as: Protonix) Start Date: 11/12/16 Stop Date: 11/15/16 Status: Discontinued RN please don't give VANCO dose RN please don't give VANCO dose, before TROUGH level is drawn, Drug form: MISC, Route: MISC, ONCE, 11/16/16 16:30:00 [employer], Stop date: 11/16/16 16:30:00 [employer]IC Start Date: 11/16/16 Stop Date: 11/15/16 Status: Deleted Saline Flush 0.9% 10 mL, Route: IVP, Drug Form: INJ, Dosing Weight 116.364, kg, PRN, PRN Line Flus h, Start date: 11/11/16 19:45:00 [employer], Duration: 30 day, Stop date: 12/11/16 19:4 4:00 [employer]CH[employer]IC Notes: (Same as: BD Posiflush) Start Date: 11/11/16 Stop Date: 11/15/16 Status: Discontinued Saline Flush 0.9% 10 mL, Route: IVP, Drug Form: INJ, Dosing Weight 116.364, kg, PRN, PRN Line Flus h, Start date: 11/11/16 19:39:00 [employer], Duration: 30 day, Stop date: 12/11/16 19:3 8:00 [employer]IC Start Date: 11/11/16 Stop Date: 11/11/16 Status: Discontinued vancomycin 1,000 mg, Route: IVPB, Drug form: INJ, ONCE, Dosing Weight 109.091, kg, Priority : STAT, Start date: 11/12/16 3:36:00 [employer], Stop date: 11/12/16 3:36:00 [employer]CH[employer]IC, TIME CRITICAL MEDICATION Start Date: 11/12/16 Stop Date: 11/12/16 Status: Discontinued Vancomycin Pharmacy Dosing 2 gm, 500 mL, 250 ml/hr, Route: IVPB, Drug Form: SOLN, Dosing Weight 109.091, kg , Daily, Start date: 11/14/16 17:00:00 [employer], Stop date: 11/20/16 17:00:00 [employer]CH[employer], Ph armacy to dose Notes: TIME CRITICAL MEDICATIONSame as: Vancocin Infusion rate< 1000 mg: infuse over 1 [id number] - 1500 mg: infuse over 1.5 [id number] - 2000 mg: infuse over 2 hours> 2001 mg: infuse over 2.5 hours Start Date: 11/14/16 Stop Date: 11/15/16 Status: Discontinued Zofran 4 mg, Route: IVP, Drug form: INJ, ONCE, Dosing Weight 109.091, kg, Start date: 1 01/13/16 6:44:00 [employer], Stop date: 11/12/16 6:44:00 [employer]CH[employer]IC Start Date: 11/12/16 Stop Date: 11/12/16 Status: Completed Zofran 4 mg, 2 mL, Route: IVP, Drug form: INJ, Q8H, Dosing Weight 109.091, kg, PRN Naus ea, Start date: 11/12/16 6:52:00 [employer], Duration: 30 day, Stop date: 12/12/16 6:51 :00 [employer]CH[employer]IC Notes: (Same as: Zofran) MEDICATION WASTE Product Size: 4 mgProduct Was yahir: ___ mg Start Date: 11/12/16 Stop Date: 11/15/16 Status: Discontinued Results ELECTROLYTES Most recent to 1 2 oldest [Reference Range]: Sodium Lvl [135-145 139 mEq/L 139 mEq/L mEq/L] (11/14/16 7:01 AM) (11/12/16 3:01 AM) Potassium Lvl 3.5 mEq/L 3.6 mEq/L [3.5-5.1 mEq/L] (11/14/16 7:01 AM) (11/12/16 3:01 AM) Chloride Lvl [95-109 100 mEq/L 101 mEq/L mEq/L] (11/14/16 7:01 AM) (11/12/16 3:01 AM) CO2 [24-32 mEq/L] 28 mEq/L 30 mEq/L (11/14/16 7:01 AM) (11/12/16 3:01 AM) AGAP [10.0-20.0 14.5 mEq/L 11.6 mEq/L mEq/L] (11/14/16 7:01 AM) (11/12/16 3:01 AM) CHEM PANEL Most recent to 1 2 oldest [Reference Range]: Creatinine Lvl 1.50 mg/dL 1.70 mg/dL [0.50-1.40 mg/dL] *HI* *HI* (11/14/16 7:01 AM) (11/12/16 3:01 AM) eGFR 37 mL/min/1.73m2 1 32 mL/min/1.73m2 2 *NA* *NA* (11/14/16 7:01 AM) (11/12/16 3:01 AM) BUN [7-22 mg/dL] 26 mg/dL 35 mg/dL *HI* *HI* (11/14/16 7:01 AM) (11/12/16 3:01 AM) B/C Ratio [6-25] 21 (11/12/16 3:01 AM) Glucose Lvl [70-99 234 mg/dL 230 mg/dL mg/dL] *HI* *HI* (11/14/16 7:01 AM) (11/12/16 3:01 AM) Total Protein 7.4 g/dL [6.4-8.4 g/dL] (11/12/16 3:01 AM) Albumin Lvl [3.5-5.0 2.8 g/dL g/dL] *LOW* (11/12/16 3:01 AM) Globulin [2.7-4.2 4.6 g/dL g/dL] *HI* (11/12/16 3:01 AM) A/G Ratio [0.7-1.6] 0.6 *LOW* (11/12/16 3:01 AM) Calcium Lvl 8.5 mg/dL 8.6 mg/dL [8.5-10.5 mg/dL] (11/14/16 7:01 AM) (11/12/16 3:01 AM) ALT [0-65 unit/L] 21 unit/L (11/12/16 3:01 AM) AST [0-37 unit/L] 15 unit/L (11/12/16 3:01 AM) Alk Phos [39-136 131 unit/L unit/L] (11/12/16 3:01 AM) Bili Total [0.2-1.3 0.3 mg/dL mg/dL] (11/12/16 3:01 AM) Amylase Lvl [25-115 23 unit/L unit/L] *LOW* (11/12/16 3:01 AM) Lipase Lvl [73-393 124 unit/L unit/L] (11/12/16 3:01 AM) 1Result Comment: The eGFR is calculated [...] [Reference Range]: UA Turbidity [Clear] Slight *ABN* (11/12/16 2:29 AM) UA Color [Yellow] Yellow *NA* (11/12/16 2:29 AM) UA pH [5.0-8.0] 5.0 (11/12/16 2:29 AM) UA Spec Grav 1.009 [<=1.030] (11/12/16 2:29 AM) UA Glucose [Negative Negative mg/dL mg/dL] *NA* (11/12/16 2:29 AM) UA Blood [Negative] Small *ABN* (11/12/16 2:29 AM) UA Ketones [Negative Negative mg/dL mg/dL] *NA* (11/12/16 2:29 AM) UA Protein [Negative 30 mg/dL mg/dL] *ABN* (11/12/16 2:29 AM) UA Urobilinogen <=1.0 mg/dL [0.1-1.0 mg/dL] *NA* (11/12/16 2:29 AM) UA Bili [Negative] Negative *NA* (11/12/16 2:29 AM) UA Leuk Est Large [Negative] *ABN* (11/12/16 2:29 AM) UA Nitrite Negative [Negative] (11/12/16 2:29 AM) UA WBC [0-5 /HPF] 81 /HPF *HI* (11/12/16 2:29 AM) UA RBC [0-2 /HPF] 3 /HPF *HI* (11/12/16 2:29 AM) UA Bacteria [None Occasional /HPF Seen /HPF] *NA* (11/12/16 2:29 AM) UA Sq Epi [Few /LPF] Few /LPF *NA* (11/12/16 2:29 AM) UA Trans Epi [<=0 1 /LPF /LPF] *HI* (11/12/16 2:29 AM) HEMATOLOGY Most recent to 1 2 oldest [Reference Range]: WBC [3.7-10.4 K/CMM] 3.9 K/CMM 5.4 K/CMM (11/14/16 7:01 AM) (11/12/16 3:01 AM) RBC [4.20-5.40 3.90 M/CMM 3.53 M/CMM M/CMM] *LOW* *LOW* (11/14/16 7:01 AM) (11/12/16 3:01 AM) Hgb [12.0-16.0 g/dL] 11.4 g/dL 10.3 g/dL *LOW* *LOW* (11/14/16 7:01 AM) (11/12/16 3:01 AM) Hct [36.0-48.0 %] 34.4 % 31.5 % *LOW* *LOW* (11/14/16 7:01 AM) (11/12/16 3:01 AM) MCV [80.0-98.0 fL] 88.2 fL 89.1 fL (11/14/16 7:01 AM) (11/12/16 3:01 AM) MCH [27.0-31.0 pg] 29.2 pg 29.3 pg (11/14/16 7:01 AM) (11/12/16 3:01 AM) MCHC [32.0-36.0 33.1 g/dL 32.8 g/dL g/dL] (11/14/16 7:01 AM) (11/12/16 3:01 AM) RDW [11.5-14.5 %] 14.1 % 14.1 % (11/14/16 7:01 AM) (11/12/16 3:01 AM) Platelet [133-450 217 K/CMM 210 K/CMM K/CMM] (11/14/16 7:01 AM) (11/12/16 3:01 AM) MPV [7.4-10.4 fL] 8.8 fL 8.9 fL (11/14/16 7:01 AM) (11/12/16 3:01 AM) Segs [45.0-75.0 %] 53.8 % 62.9 % (11/14/16 7:01 AM) (11/12/16 3:01 AM) Lymphocytes 27.3 % 22.6 % [20.0-40.0 %] (11/14/16 7:01 AM) (11/12/16 3:01 AM) Monocytes [2.0-12.0 13.8 % 10.8 % %] *HI* (11/12/16 3:01 AM) (11/14/16 7:01 AM) Eosinophils [0.0-4.0 4.0 % 3.0 % %] (11/14/16 7:01 AM) (11/12/16 3:01 AM) Basophils [0.0-1.0 1.1 % 0.7 % %] *HI* (11/12/16 3:01 AM) (11/14/16 7:01 AM) Segs-Bands # 2.1 K/CMM 3.4 K/CMM [1.5-8.1 K/CMM] (11/14/16 7:01 AM) (11/12/16 3:01 AM) Lymphocytes # 1.1 K/CMM 1.2 K/CMM [1.0-5.5 K/CMM] (11/14/16 7:01 AM) (11/12/16 3:01 AM) Monocytes # [0.0-0.8 0.5 K/CMM 0.6 K/CMM K/CMM] (11/14/16 7:01 AM) (11/12/16 3:01 AM) Eosinophils # 0.2 K/CMM 0.2 K/CMM [0.0-0.5 K/CMM] (11/14/16 7:01 AM) (11/12/16 3:01 AM) Immunizations Not Given Vaccine Date Status [...] Plan Extracted from: Title: Clinical Document Author: Mikey Walker MD Date: 11/15/16 [facility] INFECTIOUS DISEASE PROGRESS NOTE Taz Gonzalez M.D. Syed W. Hasan, M.D. REASON FOR CONSULTATION & FOLLOW-UP: UTI SUBJECTIVE: INTERVAL HISTORY: Has a little burning with urination. ROS: CONST: No fever or chills OBJECTIVE: PHYSICAL EXAMINATION: VitalsTmp(F)[id number] 11/15 09:0198.212127/[id number]--- 11/15 04:0097.356731/532381--- 11/15 00:0098.088943/[id number]--- 11/14 20:0098.536057/[id number]--- 11/14 16:0097.679729/8718------ 24 Hr Tmax: 98.5F (36.94c) at 11/14 20:00Vital Signs are the last 5 in the past 48 hours. GEN: No acute distress LUNG: Clear to auscultation bilaterally; No wheeze, rhonchi, or crackles HEART: RRR; +S1/S2; No murmurs, rubs, or gallops ABD: +BS; Soft; Non-distended; Non-tender EXT: No clubbing, cyanosis, or edema Lines, Tubes, and Drains: 11/12/2016 03:02 Peripheral Lines: Antecubital Left 20 gauge Over the needle catheter MEDICATIONS: Scheduled Meds (10): 11/14/16 cefTRIAXone + sodium chloride 0.9% INJ 100 mL 1 gm IVPB [id number] 200 ml/hr 11/14/16 clonazePAM 0.5 mg PO BID 12/28/16 furosemide (Lasix 40 mg oral tablet) 40 mg PO BID 11/13/16 glimepiride 2 mg PO Breakfast 11/12/16 heparin 5,000 unit SUB-Q Q8H 11/12/16 insulin detemir (Levemir) 20 unit SUB-Q Daily 11/13/16 lisinopril 30 mg PO Daily 11/13/16 nystatin-triamcinolone topical (nystatin-triamcinolone topical cream) 1 appl TOP BID 11/12/16 pantoprazole (Protonix) 40 mg PO Daily 11/14/16 vancomycin (Vancomycin Pharmacy Dosing) 2 gm IVPB Daily 250 ml/hr Allergies (3) ActiveReaction JanuviaNone documented metforminNone documented influenza virus vaccine, inactivatedInfluenza virus vaccine LABORATORY (All labs have been reviewed.): Labs (Last four charted values) WBC 3.9(NOV 14)5.4(NOV 12) Hgb L 11.4(NOV 14)L 10.3(NOV 12) Hct L 34.4(NOV 14)L 31.5(NOV 12) Plt 217(NOV 14)210(NOV 12) Na 139(NOV 14)139(NOV 12) K 3.5(NOV 14)3.6(NOV 12) CO2 28(NOV 14)30(NOV 12) Cl 100(NOV 14)101(NOV 12) Cr H 1.50(NOV 14)H 1.70(NOV 12) BUN H 26(NOV 14)H 35(NOV 12) Glucose Random H 234(NOV 14)H 230(NOV 12) Ca 8.5(NOV 14)8.6(NOV 12) Alk Phos: 131 unit/L (11/12/16 04:03:28) A/G Ratio: 0.6 Low (11/12/16 04:03:28) ALT: 21 unit/L (11/12/16 04:03:28) Albumin Lvl: 2.8 g/dL Low (11/12/16 04:03:28) Bili Total: 0.3 mg/dL (11/12/16 04:03:28) Total Protein: 7.4 g/dL (11/12/16 04:03:28) Globulin: 4.6 g/dL High (11/12/16 04:03:28) AST: 15 unit/L (11/12/16 04:03:28) MICROBIOLOGY: All cultures have been reviewed. IMAGING/TESTS: Recent studies have been reviewed. ASSESSMENT & PLAN: 61 yo F presents with: * E.coli & MSSA UTI * Hx of Bladder Suspension with Mesh * T2DM with Renal Complications * CKD 3 - Afebrile. - Urine with sensitive E.coli and MSSA. - Blood cx remain negative. - Change abx to cephalexin 500mg PO QID x 10 days. - Follow-up with in ID clinic and with Urology. ANTIMICROBIALS: Cefepime # 4 / . Extracted from: Title: Clinical Document Author: Zhou Fisher MD Date: 11/12/16 Hospitalist History and Physical CC: flank pain left first now bilateral HPI: 61 year old with history of DM, recurrent UTI, HTN, GERD, who was recently admitted for urosepsis and HCAP who was discharged to PT rehab presents with worsening flank pain. Reports pain never went away when she was discharged but got worse in last 2 days with left flank pain that is now bilateral as well as suprapubic pain. SHe was holding on to make it through [facility] and presented today. Reports nausea, OCONNELL, dizziness, and weakness. denies fever, vomiting, diarrhea. UA here consistent with UTI. 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 ROS: Gen: Denies fever, + weakness Eyes: Denies vision changes, eye pain, eye discharge, scleral/conjuncitva color changes ENT: Denies rhinorrhea, congestion, ear pain, sore throat RESP: denies shortness of breath, cough, sputum CV: denies chest pain, chest pressure, palpitation, edema GI: + nausea, denies vomiting, diarrhea : denies dysuria, hematuria MSK: Denies joint pain or swelling, muscle pain NEURO: + headache, denies seizures SKIN: denies rashes or lesions HEME: denies easy bruising or bleeding ENDO: denies cold or heat intolerance, polyuria, polydipsia PMH: as per HPI PSH: laparoscopic band s/p removal, hysterectomy, BTL, knee and elbow surgery MED: Please see admission med rec ALL: NKDA FH: DM, HTN in family SH: Alcohol: denies Tobacco: dnies Drugs:denies PHYSICAL EXAM: Vitals and Temp: VitalsTmp(F)[id number] 11/12 04:54----49207/[id number]--- 11/12 02:29----84-----1598--- 11/12 02:2398.393996/615166--- 11/12 00:5997.508441/070902--- 11/11 19:4498.723717/237387--- 24 Hr Tmax: 98.4F (36.89c) at 11/11 19:44Vital Signs are the last 5 in the past 48 hours. GEN: NAD, sleeping, wakes to exam Head: atraumatic, normocephalic Eyes: PERRLA, EOMI, no eye discharge, nonincteric sclera, conjunctiva clear Ears: external ears normal bilaterally, no drainage Nose: nasal septum midline, no congestion, no rhinorrhea Throat: oropharynx clear, no tonsillar exudate,, MMM Neck: trachea midline, no lymphadenopathy CV: S1, S2, RRR, no murmur, rubs, gallop; cap refills less than 2 sec throughout, good perfusion, warm extremities, 2+ pulses throughout Pulm: no chest wall tenderness, CTAB GI: soft, nontender, non-distended; positive bowel sounds, + CVA tenderness of left Extremities: no cyanosis, edema; no joint swelling; full ROM throughout Neuro: CN 2-12 intact; sensations intact throughout; 5/5 strength bilateral upper extremities and bilateral lower extremities LABS/IMAGING: reviewed in EMR ASSESSMENT AND PLAN: 1. UTI 2. DM 3. HTN 4. CKD - she has had VRE UTI in the past but last few have not been VRE. WIll start cefepime. Received a dose of linezolid in ED - previous regimen + SSI insulin for DM - continue home HTN meds - morphine for pain - zofran for nausea PROPHYL: heparin q8 DISPO: pending urine culture results, improvement of symptoms CODE: FULL
--- OUTSIDE RECORDS SUMMARY | 2019-03-23 18:40 | XMS REPORT ---
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 Problem jail current use of insulin Z79.4 Active Problem Anxiety disorder, unspecified F41.9 Active Problem Type 2 diabetes mellitus without complications E11.9 Active Problem Neuropathy G62.9 Active Problem Essential hypertension I10 Active Problem Major depressive disorder, single episode, unspecified F32.9 Active Problem Type 2 diabetes mellitus without complication, unspecified custodial insulin use status E11.9 Active Medications Medication Code System Code Instructions Start Date End Date Status Dosage Levemir Flex touch NDC 0 100 units intradermal as directed April 24, 2017 Active 30 units Results No Known Results Summary Purpose [employer] Submission
--- OUTSIDE RECORDS SUMMARY | 2019-03-23 18:40 | XMS REPORT ---
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 Problem half-way current use of insulin Z79.4 Active Problem Anxiety disorder, unspecified F41.9 Active Problem Type 2 diabetes mellitus without complications E11.9 Active Problem Neuropathy G62.9 Active Problem Essential hypertension I10 Active Problem Major depressive disorder, single episode, unspecified F32.9 Active Problem Type 2 diabetes mellitus without complication, unspecified [facility] insulin use status E11.9 Active Medications Medication Code System Code Instructions Start Date End Date Status Dosage Levemir Flex touch NDC 0 100 units intradermal BID Oct 02, 2017 Active 35 units Results No Known Results Summary Purpose [employer] Submission
--- OUTSIDE RECORDS SUMMARY | 2019-03-23 18:40 | XMS REPORT ---
Author Author Faisal Joseph Organization [employer] Address Unknown Phone Unavailable Care Team Providers Care Pocket Maker Name Role Phone Faisal Joseph CP Unavailable Allergies, Adverse Reactions, Alerts Substance Reaction Event Type pneomonia vaccine Info Not Available Drug Allergy flu vaccine Info Not Available Drug Allergy Metformin HCl Info Not Available Drug Allergy Problems Problem Type Condition Code Onset Dates Condition Status Assessment Type 2 diabetes mellitus without complications E11.9 Active Assessment Dizziness and giddiness R42 Active Assessment Acute nonintractable headache, unspecified headache type R51 Active Assessment Leg edema R60.0 Active Assessment correction current use of insulin Z79.4 Active 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.4 Active Problem Anxiety disorder, unspecified F41.9 Active Problem Type 2 diabetes mellitus without complications E11.9 Active Problem Neuropathy G62.9 Active Problem Essential hypertension I10 Active Problem Major depressive disorder, single episode, unspecified F32.9 Active Problem Type 2 diabetes mellitus without complication, 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 Medications Medication Code System Code Instructions Start Date End Date Status Dosage Lyrica [facility] [address]-69 50 MG Orally Twice a day Active 1 capsule Furosemide [facility] [address]-12 20 MG Orally Once a day Active 1 tablet Levofloxacin [facility] [address]-81 250 MG Orally Once a day Active 1 tablet OneTouch Ultra Test ND 0 In Vitro 3-4 times daily February 10, 2017 Active as directed Tramadol-Acetaminophen [facility] [address]-54 37.5-325 MG Orally every 6 hrs Active 2 tablets as needed Paxil [facility] [address]-33 20 MG Orally Once a day Dec 30, 2016 Active 1 tablet in the morning Lisinopril [facility] 76056309171 30 MG Orally Once a day Active 1 tablet NovoLog Flexpen [facility] [address]-77 100 UNIT/ML 30 units Subcutaneous three times a day (tid) Nov 25, 2016 Active as directed Medical Compression Stockings [facility] 26[address] - as directed daily on in am and off in pm May 12, 2017 Active as directed Metronidazole [facility] [address]-01 500 MG Orally three times a day Active 1 tablet NovoLog Flexpen [facility] [address]-52 100 UNIT/ML Subcutaneous 30 UNITS Active 30 units every meal Gabapentin [facility] [address]-21 100 MG Orally three times a day (tid) February 20, 2017 Active 1 capsule Methenamine Hippurate [facility] [address]-81 1 GM Orally Twice a day Active 1 tablet Vital Signs Date/Time: May 12, 2017 BMI na Index Weight na lbs Height 66 in Temperature 97.6 F Blood Pressure Diastolic 56 mm Hg Blood Pressure Systolic 85 mm Hg Results Name Result Date Reference Range Unit Abnormality Flag T4, FREE ----T4, FREE 1.2 20170512 0.8-1.8 ng/dL N TSH ----TSH 6.37 20170512 0.40-4.50 mIU/L H COMPREHENSIVE METABOLIC PANEL ----ALBUMIN/GLOBULIN RATIO 0.8 20170512 1.0-2.5 (calc) L ----GLOBULIN 3.7 74010145 1.9-3.7 g/dL (calc) N ----ALKALINE PHOSPHATASE 114 20170512 33-130 U/L N ----BILIRUBIN, TOTAL 0.3 20170512 0.2-1.2 mg/dL N ----CHLORIDE 99 20170512 98-110 mmol/L N ----ALT 11 20170512 6-29 U/L N ----POTASSIUM 4.2 20170512 3.5-5.3 mmol/L N ----AST 12 20170512 10-35 U/L N ----SODIUM 135 20170512 135-146 mmol/L N ----BUN/CREATININE RATIO 23 20170512 6-22 (calc) H ----eGFR 49 20170512 > OR=60 mL/min/1.73m2 L ----CALCIUM 8.9 20170512 8.6-10.4 mg/dL N ----CARBON DIOXIDE 29 20170512 20-31 mmol/L N ----ALBUMIN 3.0 21777910 3.6-5.1 g/dL L ----PROTEIN, TOTAL 6.7 20170512 6.1-8.1 g/dL N ----GLUCOSE 266 85648450 65-99 mg/dL H ----UREA NITROGEN (BUN) 31 20170512 7-25 mg/dL H ----CREATININE 1.34 20170512 0.50-0.99 mg/dL H ----eGFR NON-AFR. MOZAMBICAN 42 20170512 > OR=60 mL/min/1.73m2 L HEMOGLOBIN A1c ----HEMOGLOBIN A1c 12.3 [id number] <5.7 % of total Hgb H CBC (INCLUDES DIFF/PLT) ----RDW 14.3 55801199 11.0-15.0 % N ----MCHC 32.8 55042021 32.0-36.0 g/dL N ----MCH 29.4 34402498 27.0-33.0 pg N ----MCV 89.6 39817619 80.0-100.0 fL N ----HEMATOCRIT 33.6 78752024 35.0-45.0 % L ----HEMOGLOBIN 11.0 76362246 11.7-15.5 g/dL L ----BASOPHILS 0.2 73909066 % N ----RED BLOOD CELL COUNT 3.75 98583492 3.80-5.10 Million/uL L ----WHITE BLOOD CELL COUNT 5.0 27802898 3.8-10.8 Thousand/uL N ----MONOCYTES 9.1 10374461 % N ----ABSOLUTE EOSINOPHILS 155 99693597 15-500 cells/uL N ----EOSINOPHILS 3.1 14379440 % N ----ABSOLUTE BASOPHILS 10 92256199 0-200 cells/uL N ----NEUTROPHILS 64.3 18255617 % N ----LYMPHOCYTES 23.3 95315758 % N ----MPV 10.3 56500122 7.5-12.5 fL N ----ABSOLUTE NEUTROPHILS 3215 14904294 6896-9650 cells/uL N ----ABSOLUTE LYMPHOCYTES 1165 66585075 850-3900 cells/uL N ----ABSOLUTE MONOCYTES 455 33845162 200-950 cells/uL N ----PLATELET COUNT 219 [id number] 140-400 Thousand/uL N Summary Purpose [employer] Submission
--- OUTSIDE RECORDS SUMMARY | 2019-03-23 18:40 | XMS REPORT ---
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 Active Assessment Vaginal yeast infection B37.3 Active Assessment Essential hypertension I10 Active Problem senior living current use of insulin Z79.4 Active Problem Anxiety disorder, unspecified F41.9 Active Problem Type 2 diabetes mellitus without complications E11.9 Active Problem Neuropathy G62.9 Active Problem Essential hypertension I10 Active Problem Major depressive disorder, single episode, unspecified F32.9 Active Problem Type 2 diabetes mellitus without complication, unspecified [facility] insulin use status E11.9 Active Medications Medication Code System Code Instructions Start Date End Date Status Dosage Lisinopril [facility] [address]-91 5 MG Orally two times a day Active 1 tablet Furosemide [facility] [address]-14 20 MG Orally Once a day Active 1 tablet Pravastatin Sodium [facility] [address]-98 20 MG Orally Once a day Active 1 tablet Hyoscyamine Sulfate [facility] [address]-53 0.125 MG Sublingual every 4 hrs Active 1 tablet under the tongue and allow to dissolve before meals as needed Insulin Detemir [facility] [address]-54 100 UNIT/ML Subcutaneous Active not defined Fluconazole [facility] [address]-73 100 MG Orally daily Jun 18, 2017 Jun 25, 2017 Active 1 tablet Paroxetine HCl [facility] [address]-37 20 MG Orally Once a day Active 1 tablet in the morning Tylenol [facility] [address]-50 325 MG Orally every 6 hrs Active 2 tablets as needed Paxil [facility] [address]-40 20 MG Orally Once a day Dec 30, 2016 Active 1 tablet in the morning Medical Compression Stockings [facility] 12324-[address]15 - as directed daily on in am and off in pm May 12, 2017 Active as directed Lasix [facility] [address]-02 40 MG Orally Once a day Active 1 tablet Pepcid [facility] [address]-67 20 MG Orally twice a day Active 1 tablet at bedtime OneTouch Ultra Test ND 0 In Vitro 3-4 times daily February 10, 2017 Active as directed NovoLog Flexpen [facility] [address]-60 100 UNIT/ML Subcutaneous 30 UNITS Active 30 units every meal Lactulose [facility] [address]-36 20 GM/30ML Orally Once a day Active 15 ml Vital Signs Date/Time: Jun 18, 2017 BMI na Index Weight na lbs Height 66 in Temperature 95.8 F Blood Pressure Diastolic 63 mm Hg Blood Pressure Systolic 93 mm Hg Results No Known Results Summary Purpose [employer] Submission
--- OUTSIDE RECORDS SUMMARY | 2019-03-23 18:40 | XMS REPORT ---
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
--- OUTSIDE RECORDS SUMMARY | 2019-03-23 18:40 | XMS REPORT | Summary of Care ---
Author Author [facility] Organization [facility] Address Unknown Phone Unavailable Encounter HQ Olivier(JOVANNY) [id number] Date(s): 12/07/16 - 12/10/[address] [facility] [address] [place] [address]- Discharge Disposition: Home or Self Care Attending Physician: Faisal Joseph MD Admitting Physician: Faisal Joseph MD Vital Signs 1 2 3 Most recent to oldest [Reference Range]: 167.64 cm (12/08/16 4:30 AM) 167.64 cm (12/07/16 6:19 PM) Height 117.443 kg (12/08/16 4:37 AM) Current Weight 97.7 DegF (12/10/16 7:25 AM) 97.6 DegF (12/10/16 4:19 AM) 98.3 DegF (12/09/16 11:56 PM) Temperature Oral [96.4-99.1 DegF] 158/81 mmHg *HI* (12/10/16 10:00 AM) 168/81 mmHg *HI* (12/10/16 7:25 AM) 164/95 mmHg *HI* (12/10/16 4:19 AM) Blood Pressure [90-140/60-90 mmHg] 16 BRMIN (12/10/16 8:10 AM) 18 BRMIN (12/10/16 7:25 AM) 17 BRMIN (12/10/16 4:19 AM) Respiratory Rate [14-20 BRMIN] 87 bpm (12/10/16 10:00 AM) 82 bpm (12/10/16 7:25 AM) 89 bpm (12/10/16 4:19 AM) Peripheral Pulse Rate [60-100 bpm] 114.55 kg (12/08/16 9:06 AM) 114.545 kg (12/08/16 4:30 AM) 114.545 kg (12/07/16 6:19 PM) Weight 40.76 m2 (12/08/16 4:30 AM) 40.76 m2 (12/07/16 6:19 PM) Body Mass Index Problem List Condition [...] Active VRE(Confirmed)6 Active 1heart 2Data migrated from [employer] on 07/11/15. - in urine 4Problem added by Discern Expert. 5Data migrated from [employer] on 07/11/15. 6Problem added by Discern Expert. Allergies, Adverse Reactions, Alerts Substance Reaction Severity Status influenza virus vaccine, Influenza virus vaccine Active inactivated Januvia Active metformin Active Medications acetaminophen 650 mg, 2 tab, Route: PO, Drug form: TAB, Q4H, Dosing Weight 114.545, kg, PRN Pa in 1-3/Temp > 100.4 F, Start date: 12/08/16 1:48:00 BORING MACHINE SET UP OPERATOR, Duration: 30 day, Stop date: 01/07/17 1:47:00 BORING MACHINE SET UP OPERATOR Notes: Do not exceed 4 gm/day. (Same as: Tylenol) Start Date: 12/08/16 Stop Date: 12/10/16 Status: Discontinued acetaminophen-hydrocodone 325 mg-5 mg oral tablet 2 tab, Route: PO, Drug Form: TAB, Dosing Weight 114.545, kg, Q4H, PRN Pain Score 7-10, Start date: 12/08/16 1:48:00 BORING MACHINE SET UP OPERATOR, Duration: 30 day, Stop date: 01/07/17 1 :47:00 BORING MACHINE SET UP OPERATOR Notes: (Same as: [place] 325/5) Do not exceed 4gm/day of acetaminophen. Start Date: 12/08/16 Stop Date: 12/10/16 Status: Discontinued acetaminophen-hydrocodone 325 mg-5 mg oral tablet 1 tab, Route: PO, Drug Form: TAB, Dosing Weight 114.545, kg, Q4H, PRN Pain Score 4-6, Start date: 12/08/16 1:48:00 BORING MACHINE SET UP OPERATOR, Duration: 30 day, Stop date: 01/07/17 1: 47:00 BORING MACHINE SET UP OPERATOR Notes: (Same as: [place] 325/5) Do not exceed 4gm/day of acetaminophen. Start Date: 12/08/16 Stop Date: 12/10/16 Status: Discontinued albuterol-ipratropium 3 mL, Route: NEB, Drug Form: SOLN, Dosing Weight 114.55, kg, RQ2H, PRN as needed for shortness of breath or wheezing, Start date: 12/08/16 13:27:00 BORING MACHINE SET UP OPERATOR, Duratio n: 30 day, Stop date: 01/07/17 13:26:00 BORING MACHINE SET UP OPERATOR Notes: (Same as: Helga) Start Date: 12/08/16 Stop Date: 12/10/16 Status: Discontinued Dextrose 50% Syringe 12.5 gm, 25 mL, Route: IVP, Drug Form: INJ, Dosing Weight 114.545, kg, PRN, PRN Blood Glucose Results, Start date: 12/08/16 1:47:00 BORING MACHINE SET UP OPERATOR, Duration: 30 day, Stop date: 01/07/17 1:46:00 BORING MACHINE SET UP OPERATOR Start Date: 12/08/16 Stop Date: 12/10/16 Status: Discontinued Dextrose 50% Syringe 25 gm, 50 mL, Route: IVP, Drug Form: INJ, Dosing Weight 114.545, kg, PRN, PRN Bl ood Glucose Results, Start date: 12/08/16 1:47:00 BORING MACHINE SET UP OPERATOR, Duration: 30 day, Stop da te: 01/07/17 1:46:00 BORING MACHINE SET UP OPERATOR Start Date: 12/08/16 Stop Date: 12/10/16 Status: Discontinued docusate 100 mg, 1 cap, Route: PO, Drug form: CAP, BID, Dosing Weight 114.545, kg, PRN Co nstipation, Start date: 12/08/16 1:48:00 BORING MACHINE SET UP OPERATOR, Duration: 30 day, Stop date: 01/07 1:47:00 BORING MACHINE SET UP OPERATOR Notes: (Same as: Colace) (Do Not Crush) Start Date: 12/08/16 Stop Date: 12/10/16 Status: Discontinued doxycycline hyclate 100 mg oral tablet 100 mg=1 tab, PO, Q12H, # 14 tab, 0 Refill(s) Start Date: 12/08/16 Stop Date: 12/15/16 Status: Ordered enoxaparin 40 mg, 0.4 mL, Route: SUB-Q, Drug form: INJ, [id number], Dosing Weight 114.545, kg , Consider for obese patients, Start date: 12/08/16 2:00:00 BORING MACHINE SET UP OPERATOR, Duration: 30 da y, Stop date: 01/06/17 14:00:00 BORING MACHINE SET UP OPERATOR Notes: (Same as: Lovenox) Start Date: 12/08/16 Stop Date: 12/10/16 Status: Discontinued Flagyl 500 mg oral tablet 500 mg=1 tab, PO, Q8H, # 21 tab, 0 Refill(s) Start Date: 12/08/16 Stop Date: 12/10/16 Status: Discontinued glimepiride 2 mg, 2 tab, Route: PO, Drug form: TAB, Breakfast, Dosing Weight 114.55, kg, Sta rt date: 12/09/16 8:00:00 BORING MACHINE SET UP OPERATOR, Duration: 30 day, Stop date: 01/07/17 8:00:00 BORING MACHINE SET UP OPERATOR Notes: (Same as: Amaryl) Start Date: 12/09/16 Stop Date: 12/10/16 Status: Discontinued glucagon 1 mg, Route: IM, Drug form: PDR/INJ, PRN, Dosing Weight 114.545, kg, PRN Blood G lucose Results, Start date: 12/08/16 1:47:00 BORING MACHINE SET UP OPERATOR, Duration: 30 day, Stop date: 0 01/07/17 1:46:00 BORING MACHINE SET UP OPERATOR Start Date: 12/08/16 Stop Date: 12/10/16 Status: Discontinued guaiFENesin 600 mg, 1 tab, Route: PO, Drug form: ERTAB, Q12H, Dosing Weight 114.55, kg, Star t date: 12/08/16 21:00:00 BORING MACHINE SET UP OPERATOR, Duration: 30 day, Stop date: 01/07/17 9:00:00 BORING MACHINE SET UP OPERATOR Notes: (Same as: Guaifenesin LA, Humibid LA, Mucinex)"Do Not Crush" Take medica tion with plenty of water. Start Date: 12/08/16 Stop Date: 12/10/16 Status: Discontinued hydrALAZINE 25 mg oral tablet 50 mg, 1 tab, Route: PO, Drug form: TAB, TID, Dosing Weight 114.55, kg, Start da te: 12/08/16 17:00:00 BORING MACHINE SET UP OPERATOR, Duration: 30 day, Stop date: 01/07/17 13:00:00 BORING MACHINE SET UP OPERATOR Notes: (Same as: Apresoline) May interfere w/enteral feedings Take With Food Start Date: 12/08/16 Stop Date: 12/10/16 Status: Discontinued hyoscyamine 0.125 mg, 1 tab, Route: PO, Drug form: TAB, Q4H, Dosing Weight 114.55, kg, PRN S pasm, Start date: 12/08/16 13:25:00 BORING MACHINE SET UP OPERATOR, Duration: 30 day, Stop date: 01/07/17 1 3:24:00 BORING MACHINE SET UP OPERATOR Notes: (Same as: Levsin) Take 30 min before meal Start Date: 12/08/16 Stop Date: 12/10/16 Status: Discontinued insulin aspart 6 unit, 0.06 mL, Route: SUB-Q, Drug form: SOLN, TID-Before Meals, Dosing Weight 114.545, kg, PRN Blood Glucose Results, Start date: 12/08/16 1:47:00 BORING MACHINE SET UP OPERATOR, Durati on: 30 day, Stop date: 01/07/17 1:46:00 BORING MACHINE SET UP OPERATOR Notes: Roll in palms of hands gently; Do not shake vigorously. (Same as: NovoLO G)"single patient use only"WASTE: F/P - Black; E - Municipal Trash Bin Stable f or 28 days at room temperature.Expires in days from Date Start Date: 12/08/16 Stop Date: 12/10/16 Status: Discontinued insulin aspart 8 unit, 0.08 mL, Route: SUB-Q, Drug form: SOLN, TID-Before Meals, Dosing Weight 114.545, kg, PRN Blood Glucose Results, Start date: 12/08/16 1:47:00 BORING MACHINE SET UP OPERATOR, Durati on: 30 day, Stop date: 01/07/17 1:46:00 BORING MACHINE SET UP OPERATOR Notes: Roll in palms of hands gently; Do not shake vigorously. (Same as: Manuel Garcia)"single patient use only"WASTE: F/P - Black; E - Municipal Trash Bin Stable f or 28 days at room temperature.Expires in days from Date Start Date: 12/08/16 Stop Date: 12/10/16 Status: Discontinued insulin aspart 2 unit, 0.02 mL, Route: SUB-Q, Drug form: SOLN, TID-Before Meals, Dosing Weight 114.545, kg, PRN Blood Glucose Results, Start date: 12/08/16 1:47:00 BORING MACHINE SET UP OPERATOR, Durati on: 30 , Stop date: 01/07/17 1:46:00 BORING MACHINE SET UP OPERATOR Notes: Roll in palms of hands gently; Do not shake vigorously. (Same as: Manuel Garcia)"single patient use only"WASTE: F/P - Black; E - Municipal Trash Bin Stable f or 28 days at room temperature.Expires in days from Date Start Date: 12/08/16 Stop Date: 12/10/16 Status: Discontinued insulin aspart 4 unit, 0.04 mL, Route: SUB-Q, Drug form: SOLN, TID-Before Meals, Dosing Weight 114.545, kg, PRN Blood Glucose Results, Start date: 12/08/16 1:47:00 BORING MACHINE SET UP OPERATOR, Durati on: 30 day, Stop date: 01/07/17 1:46:00 BORING MACHINE SET UP OPERATOR Notes: Roll in palms of hands gently; Do not shake vigorously. (Same as: Manuel Garcia)"single patient use only"WASTE: F/P - Black; E - Municipal Trash Bin Stable f or 28 days at room temperature.Expires in days from Date Start Date: 12/08/16 Stop Date: 12/10/16 Status: Discontinued insulin aspart 10 unit, 0.1 mL, Route: SUB-Q, Drug form: SOLN, TID-Before Meals, Dosing Weight 114.545, kg, PRN Blood Glucose Results, Start date: 12/08/16 1:47:00 BORING MACHINE SET UP OPERATOR, Durati on: 30 day, Stop date: 01/07/17 1:46:00 BORING MACHINE SET UP OPERATOR Notes: Roll in palms of hands gently; Do not shake vigorously. (Same as: NovoLO G)"single patient use only"WASTE: F/P - Black; E - Municipal Trash Bin Stable f or 28 days at room temperature.Expires in days from Date Start Date: 12/08/16 Stop Date: 12/10/16 Status: Discontinued insulin detemir 25 unit, 0.25 mL, Route: SUB-Q, Drug form: INJ, Q12H, Dosing Weight 114.55, kg, Start date: 12/08/16 21:00:00 BORING MACHINE SET UP OPERATOR, Duration: 30 day, Stop date: 01/07/17 9:00:00 BORING MACHINE SET UP OPERATOR Notes: Same as [place] not hold insulin without contacting prescriberWASTE: F/ P - Black; E - Municipal Trash Bin "single patient use only" Start Date: 12/08/16 Stop Date: 12/10/16 Status: Discontinued Lactated Ringers 1,000 mL 1,000 mL, Rate: 100 ml/hr, Infuse over: 10 hr, Route: IV, Dosing Weight 114.545 kg, Total Volume: 1,000, Start date: 12/08/16 1:48:00 BORING MACHINE SET UP OPERATOR, Duration: 30 day, Sto p date: 01/07/17 1:47:00 BORING MACHINE SET UP OPERATOR Start Date: 12/08/16 Stop Date: 12/09/16 Status: Discontinued lactulose 10 g/15 mL oral syrup 20 gm, 30 mL, Route: PO, Drug form: SYRP, Daily, Dosing Weight 114.55, kg, PRN C onstipation, Start date: 12/08/16 13:28:00 BORING MACHINE SET UP OPERATOR, Duration: 30 day, Stop date: 13:27:00 BORING MACHINE SET UP OPERATOR Notes: (Same as:Chronulac) Start Date: 12/08/16 Stop Date: 12/10/16 Status: Discontinued Levaquin 750 mg, 150 mL, Route: IVPB, Drug form: SOLN, Daily, Dosing Weight 114.545, kg, Start date: 12/08/16 9:00:00 BORING MACHINE SET UP OPERATOR, Duration: 30 day, Stop date: 01/06/17 9:00:00 BORING MACHINE SET UP OPERATOR Notes: (Same as:Levaquin) Start Date: 12/08/16 Stop Date: 12/10/16 Status: Discontinued Levaquin 750 mg oral tablet 750 mg=1 tab, PO, Q24H, X 10 day, # 10 tab, 0 Refill(s), [facility] [id number] Start Date: 12/10/16 Stop Date: 12/20/16 Status: Ordered linezolid 600 mg, 300 mL, Route: IV, Drug form: SOLN, [id number], Dosing Weight 114.545, kg, Start date: 12/08/16 3:00:00 BORING MACHINE SET UP OPERATOR, Duration: 30 day, Stop date: 01/06/17 17:00:00 BORING MACHINE SET UP OPERATOR Notes: (Same as: Zyvox) Start Date: 12/08/16 Stop Date: 12/10/16 Status: Discontinued lisinopril 30 mg, 1.5 tab, Route: PO, Drug form: TAB, Daily, Dosing Weight 114.55, kg, Star t date: 12/09/16 9:00:00 BORING MACHINE SET UP OPERATOR, Duration: 30 day, Stop date: 01/07/17 9:00:00 BORING MACHINE SET UP OPERATOR Notes: (Same as: Prinivil, Zestril) Start Date: 12/09/16 Stop Date: 12/10/16 Status: Discontinued lisinopril 30 mg oral tablet 30 mg=1 tab, PO, Daily, # 30 tab, 0 Refill(s) Start Date: 12/08/16 Status: Ordered Lyrica 75 mg, 1 cap, Route: PO, Drug form: CAP, BID, Dosing Weight 114.55, kg, Start da te: 12/08/16 17:00:00 BORING MACHINE SET UP OPERATOR, Duration: 30 day, Stop date: 01/07/17 9:00:00 BORING MACHINE SET UP OPERATOR Notes: (Same as: Lyrica) Start Date: 12/08/16 Stop Date: 12/10/16 Status: Discontinued Lyrica 75 mg oral capsule 75 mg=1 cap, PO, BID, # 60 cap, 0 Refill(s) Start Date: 12/08/16 Status: Ordered morphine Sulfate 4 mg, 1 mL, Route: IV, Drug form: SOLN, ONCE, Dosing Weight 114.545, kg, Priorit y: STAT, Start date: 12/07/16 23:06:00 BORING MACHINE SET UP OPERATOR, Stop date: 12/07/16 23:06:00 BORING MACHINE SET UP OPERATOR Notes: (Same as:MORPhine Sulfate) Start Date: 12/07/16 Stop Date: 12/07/16 Status: Completed NexIUM 40 mg, Route: PO, Drug form: ECCAP, Daily, Dosing Weight 114.55, kg, Start date: 12/09/16 9:00:00 BORING MACHINE SET UP OPERATOR, Duration: 30 day, Stop date: 01/07/17 9:00:00 BORING MACHINE SET UP OPERATOR Start Date: 12/09/16 Stop Date: 12/08/16 Status: Deleted nystatin-triamcinolone topical cream 1 appl, Route: TOP, BID, Drug form: CRM, Start date: 12/08/16 17:00:00 BORING MACHINE SET UP OPERATOR, Dura tion: 30 day, Stop date: 01/07/17 9:00:00 BORING MACHINE SET UP OPERATOR Notes: (nystatin-triamcinolone 923575 units/g-0.1% top CRM 60 gm ) Start Date: 12/08/16 Stop Date: 12/10/16 Status: Discontinued ondansetron 4 mg, 2 mL, Route: IVP, Drug form: INJ, Q6H, Dosing Weight 114.545, kg, PRN Naus ea & Vomiting, Start date: 12/08/16 1:48:00 BORING MACHINE SET UP OPERATOR, Duration: 30 day, Stop date: 01/07/17 1:47:00 BORING MACHINE SET UP OPERATOR Notes: (Same as: Jeremiah) MEDICATION WASTE Product Size: 4 mgProduct Was yahir: ___ mg Start Date: 12/08/16 Stop Date: 12/10/16 Status: Discontinued Protonix 40 mg, 1 tab, Route: PO, Drug form: ECTAB, Daily, Start date: 12/09/16 9:00:[address], Duration: 30 day, Stop date: 01/07/17 9:00:00 BORING MACHINE SET UP OPERATOR Notes: Tablet should not be chewed or crushed.(Same as: Protonix) Start Date: 12/09/16 Stop Date: 12/10/16 Status: Discontinued Rocephin + sodium chloride 0.9% INJ 100 mL 1 gm, Route: IV, ONCE, Dosing Weight 114.545, kg, Priority: STAT, Start date: 23:05:00 BORING MACHINE SET UP OPERATOR, Stop date: 12/07/16 23:05:00 BORING MACHINE SET UP OPERATOR Notes: (Same As: Rocephin).Use with 100 mL NS and infuse over 30 min MEDICA TION WASTE Product Size: 1000 mgProduct Wasted: ___ mg Start Date: 12/07/16 Stop Date: 12/07/16 Status: Completed Saline Flush 0.9% 10 mL, Route: IVP, Drug Form: INJ, Dosing Weight 109.091, kg, PRN, PRN Line Flus h, Start date: 12/07/16 18:22:00 BORING MACHINE SET UP OPERATOR, Duration: 30 day, Stop date: 01/06/17 18:2 1:00 BORING MACHINE SET UP OPERATOR Notes: (Same as: BD Posiflush) Start Date: 12/07/16 Stop Date: 12/10/16 Status: Discontinued Saline Flush 0.9% 10 ml, Route: IVP, Drug Form: INJ, Dosing Weight 114.545, kg, PRN, PRN Line Flus h, Start date: 12/08/16 1:48:00 BORING MACHINE SET UP OPERATOR, Duration: 30 day, Stop date: 01/07/17 1:47: 00 BORING MACHINE SET UP OPERATOR Notes: (Same as: BD Posiflush) Start Date: 12/08/16 Stop Date: 12/10/16 Status: Discontinued Zofran 8 mg, Route: IVP, Drug form: INJ, ONCE, Dosing Weight 114.545, kg, Priority: STA T, Start date: 12/07/16 23:06:00 BORING MACHINE SET UP OPERATOR, Stop date: 12/07/16 23:06:00 BORING MACHINE SET UP OPERATOR Start Date: 12/07/16 Stop Date: 12/07/16 Status: Completed Zyvox 600 mg oral tablet 600 mg=1 tab, PO, Q12H, X 10 day, # 20 tab, 0 Refill(s), Pharmacy: [facility] [place] [id number] Start Date: 12/10/16 Stop Date: 12/20/16 Status: Ordered Results ELECTROLYTES Most recent to 1 2 oldest [Reference Range]: Sodium Lvl [135-145 140 mEq/L 140 mEq/L mEq/L] (12/08/16 2:08 AM) (12/07/16 8:11 PM) Potassium Lvl 3.6 mEq/L 3.6 mEq/L [3.5-5.1 mEq/L] (12/08/16 2:08 AM) (12/07/16 8:11 PM) Chloride Lvl [95-109 103 mEq/L 104 mEq/L mEq/L] (12/08/16 2:08 AM) (12/07/16 8:11 PM) CO2 [24-32 mEq/L] 28 mEq/L 27 mEq/L (12/08/16 2:08 AM) (12/07/16 8:11 PM) AGAP [10.0-20.0 12.6 mEq/L 12.6 mEq/L mEq/L] (12/08/16 2:08 AM) (12/07/16 8:11 PM) CHEM PANEL Most recent to 1 2 oldest [Reference Range]: Creatinine Lvl 1.00 mg/dL 1.10 mg/dL [0.50-1.40 mg/dL] (12/08/16 2:08 AM) (12/07/16 8:11 PM) eGFR 60 mL/min/1.73m2 1 54 mL/min/1.73m2 2 *NA* *NA* (12/08/16 2:08 AM) (12/07/16 8:11 PM) BUN [7-22 mg/dL] 28 mg/dL 27 mg/dL *HI* *HI* (12/08/16 2:08 AM) (12/07/16 8:11 PM) B/C Ratio [6-25] 25 (12/07/16 8:11 PM) Glucose Lvl [70-99 148 mg/dL 50 mg/dL 3 mg/dL] *HI* *CRIT* (12/08/16 2:08 AM) (12/07/16 8:11 PM) Total Protein 8.5 g/dL [6.4-8.4 g/dL] *HI* (12/07/16 8:11 PM) Albumin Lvl [3.5-5.0 3.3 g/dL g/dL] *LOW* (12/07/16 8:11 PM) Globulin [2.7-4.2 5.2 g/dL g/dL] *HI* (12/07/16 8:11 PM) A/G Ratio [0.7-1.6] 0.6 *LOW* (12/07/16 8:11 PM) Calcium Lvl 8.3 mg/dL 8.9 mg/dL [8.5-10.5 mg/dL] *LOW* (12/07/16 8:11 PM) (12/08/16 2:08 AM) ALT [0-65 unit/L] 19 unit/L (12/07/16 8:11 PM) AST [0-37 unit/L] 27 unit/L (12/07/16 8:11 PM) Alk Phos [39-136 123 unit/L unit/L] (12/07/16 8:11 PM) Bili Total [0.2-1.3 0.2 mg/dL mg/dL] (12/07/16 8:11 PM) Lactic Acid Lvl 1.5 mMol/L [0.5-2.2 mMol/L] (12/07/16 8:11 PM) Procalcitonin Lvl 0.05 ng/mL [0.00-0.10 ng/mL] (12/07/16 8:11 PM) 1Result Comment: The eGFR is calculated [...] tiplied by the estimated BMI. 3Result Comment: Critical Result(s) called to Ana Yarbrough at 12/07/2016 20:47 by Josefina Gutierrez. Read back OK. CARDIAC ENZYMES Most recent to 1 2 oldest [Reference Range]: Total CK [12-191 94 unit/L unit/L] (12/07/16 8:11 PM) CK MB [0.5-3.6 1.7 ng/mL ng/mL] (12/07/16 8:11 PM) CK MB Index 1.8 [0.0-2.5] (12/07/16 8:11 PM) Troponin-I <0.02 ng/mL [0.00-0.40 ng/mL] (12/07/16 8:11 PM) URINE AND STOOL Most recent to 1 2 oldest [Reference Range]: UA Turbidity [Clear] Slight *ABN* (12/07/16 11:21 PM) UA Color [Yellow] Yellow *NA* (12/07/16 11:21 PM) UA pH [5.0-8.0] 5.0 (12/07/16 11:21 PM) UA Spec Grav 1.005 [<=1.030] (12/07/16 11:21 PM) UA Glucose [Negative Negative mg/dL mg/dL] *NA* (12/07/16 11:21 PM) UA Blood [Negative] Small *ABN* (12/07/16 11:21 PM) UA Ketones [Negative Negative mg/dL mg/dL] *NA* (12/07/16 11:21 PM) UA Protein [Negative 100 mg/dL mg/dL] *ABN* (12/07/16 11:21 PM) UA Urobilinogen <=1.0 mg/dL [0.1-1.0 mg/dL] *NA* (12/07/16 11:21 PM) UA Bili [Negative] Negative *NA* (12/07/16 11:21 PM) UA Leuk Est Large [Negative] *ABN* (12/07/16 11:21 PM) UA Nitrite Positive [Negative] *ABN* (12/07/16 11:21 PM) UA WBC [0-5 /HPF] >182 /HPF *HI* (12/07/16 11:21 PM) UA RBC [0-2 /HPF] 4 /HPF *HI* (12/07/16 11:21 PM) UA Bacteria [None Moderate /HPF Seen /HPF] *ABN* (12/07/16 11:21 PM) UA Sq Epi [Few /LPF] Occasional /LPF *NA* (12/07/16 11:21 PM) UA Hyal Cast [0-2 1 /LPF /LPF] (12/07/16 11:21 PM) UA Mucus [None Seen Few /LPF /LPF] *NA* (12/07/16 11:21 PM) HEMATOLOGY Most recent to 1 2 oldest [Reference Range]: WBC [3.7-10.4 K/CMM] 6.1 K/CMM 8.0 K/CMM (12/08/16 2:08 AM) (12/07/16 8:11 PM) RBC [4.20-5.40 3.56 M/CMM 3.23 M/CMM M/CMM] *LOW* *LOW* (12/08/16 2:08 AM) (12/07/16 8:11 PM) Hgb [12.0-16.0 g/dL] 10.7 g/dL 9.6 g/dL *LOW* *LOW* (12/08/16 2:08 AM) (12/07/16 8:11 PM) Hct [36.0-48.0 %] 31.0 % 28.5 % *LOW* *LOW* (12/08/16 2:08 AM) (12/07/16 8:11 PM) MCV [80.0-98.0 fL] 87.0 fL 88.3 fL (12/08/16 2:08 AM) (12/07/16 8:11 PM) MCH [27.0-31.0 pg] 30.0 pg 29.7 pg (12/08/16 2:08 AM) (12/07/16 8:11 PM) MCHC [32.0-36.0 34.5 g/dL 33.6 g/dL g/dL] (12/08/16 2:08 AM) (12/07/16 8:11 PM) RDW [11.5-14.5 %] 14.5 % 14.5 % (12/08/16 2:08 AM) (12/07/16 8:11 PM) Platelet [133-450 225 K/CMM 290 K/CMM K/CMM] (12/08/16 2:08 AM) (12/07/16 8:11 PM) MPV [7.4-10.4 fL] 9.2 fL 9.1 fL (12/08/16 2:08 AM) (12/07/16 8:11 PM) Segs [45.0-75.0 %] 54.9 % 59.3 % (12/08/16 2:08 AM) (12/07/16 8:11 PM) Lymphocytes 29.1 % 23.8 % [20.0-40.0 %] (12/08/16 2:08 AM) (12/07/16 8:11 PM) Monocytes [2.0-12.0 11.6 % 13.1 % %] (12/08/16 2:08 AM) *HI* (12/07/16 8:11 PM) Eosinophils [0.0-4.0 3.5 % 2.7 % %] (12/08/16 2:08 AM) (12/07/16 8:11 PM) Basophils [0.0-1.0 0.9 % 1.1 % %] (12/08/16 2:08 AM) *HI* (12/07/16 8:11 PM) Segs-Bands # 3.4 K/CMM 4.7 K/CMM [1.5-8.1 K/CMM] (12/08/16 2:08 AM) (12/07/16 8:11 PM) Lymphocytes # 1.8 K/CMM 1.9 K/CMM [1.0-5.5 K/CMM] (12/08/16 2:08 AM) (12/07/16 8:11 PM) Monocytes # [0.0-0.8 0.7 K/CMM 1.0 K/CMM K/CMM] (12/08/16 2:08 AM) *HI* (12/07/16 8:11 PM) Eosinophils # 0.2 K/CMM 0.2 K/CMM [0.0-0.5 K/CMM] (12/08/16 2:08 AM) (12/07/16 8:11 PM) Basophils # [0.0-0.2 0.1 K/CMM 0.1 K/CMM K/CMM] (12/08/16 2:08 AM) (12/07/16 8:11 PM) PT [12.0-14.7 13.4 seconds seconds] (12/07/16 8:11 PM) INR [0.85-1.17] 1.00 (12/07/16 8:11 PM) PTT [22.9-35.8 32.3 seconds seconds] (12/07/16 8:11 PM) Immunizations Not Given Vaccine Date Status [...] Clinical Document Author: Faisal Joseph MD Date: 12/09/16 Medicine Progress Daily Chief Complaint: Recurrent urinary tract infection Subjective & Interval history: Patient seen and examined. Patient feels a little better today. Denies any fever. No nausea or vomiting. Objective: Vital Signs (last 24 hrs) Last Charted Temp Oral98.3 DegF (DEC 09 08:56) Heart Rate Ocpkxzllhw70 bpm (DEC 09 08:56) Resp Rate 18 BRMIN (DEC 09 08:56) LDL628 mmHg (DEC 09 08:56) DBPL 6mmHg (DEC 09 08:56) RaV492 % (DEC 09:56) Ssbkfv657.55 kg (DEC 08 09:06) Medications and labs reviewed as below. PHYSICAL EXAM: GENERAL: AAO NAD HEENT: NCAT, perrl, eomi NECK: Supple, midline trachea LUNGS: CTAB, No rales, rhonchi or wheezes. non labored breathing. CARDIOVASCULAR: S1, S2 normal. No M/G/R. ABDOMEN: Soft, ND, NT. BS + EXTREMITIES: No C/C , or Edema SKIN: No rashes. MUSCULOSKELETAL: Moving all extremities. Neuro: No new motor or sensory deficits IMPRESSION: Recurrent bladder infection History of bladder suspension with mesh CKD stage III Diabetes mellitus type 2 complicated with retinopathy and nephropathy PLAN & TREATMENT Continue current antibiotics. Infectious disease recommendations are noted. Patient eventually needs surgery by reviewed urology. She is currently in the process of getting cardiac clearance. She sees Dr. Chin Marin and has outpatient appointment scheduled with him tomorrow. Eventually plan for surgical procedure at [facility] by Dr. Salinas. Plan of care discussed with patient. Insulin sliding scale with Accu-Cheks. Medications reconciled. For details see orders. Plan of care discussed with Disposition: Input/Output RecordInOutBal 11/2223hr Tot 2425 0 2425 11/2123hr Tot 255 0 255 Scheduled Meds (11):enoxaparin, glimepiride, guaiFENesin, hydrALAZINE (hydrALAZINE 25 mg oral tablet), insulin detemir, levofloxacin (Levaquin), linezolid, lisinopril, nystatin-triamcinolone topical (nystatin-triamcinolone topical cream), pantoprazole (Protonix), pregabalin (Lyrica) Unscheduled Meds: None PRN Meds (18):Dextrose 50% in Water IV (Dextrose 50% Syringe), Dextrose 50% in Water IV (Dextrose 50% Syringe), acetaminophen-hydrocodone (acetaminophen- hydrocodone 325 mg-5 mg oral tablet), acetaminophen-hydrocodone (acetaminophen- hydrocodone 325 mg-5 mg oral tablet), acetaminophen, albuterol-ipratropium, docusate, glucagon, hyoscyamine, insulin aspart, insulin aspart, insulin aspart, insulin aspart, insulin aspart, lactulose (lactulose 10 g/15 mL oral syrup), ondansetron, sodium chloride (Saline Flush 0.9%), sodium chloride (Saline Flush 0.9%) One Time Meds (3):(Completed) cefTRIAXone + sodium chloride 0.9% INJ 100 mL (Rocephin + sodium chloride 0.9% INJ 100 mL), (Completed) morphine Sulfate, (Completed) ondansetron (Zofran) Continuous Infusions: None Labs (Last four charted values) WBC 6.1(DEC 08)8.0(DEC 07) Hgb L 10.7(DEC 08)L 9.6(DEC 07) Hct L 31.0(DEC 08)L 28.5(DEC 07) Plt 225(DEC 08)290(DEC 07) Na 140(DEC 08)140(DEC 07) K 3.6(DEC 08)3.6(DEC 07) CO2 28(DEC 08)27(DEC 07) Cl 103(DEC 08)104(DEC 07) Cr 1.00(DEC 08)1.10(DEC 07) BUN H 28(DEC 08)H 27(DEC 07) Glucose Random H 148(DEC 08)C 50(DEC 07) Ca L 8.3(DEC 08)8.9(DEC 07) PT 13.4(DEC 07) INR 1.00(DEC 07) PTT 32.3(DEC 07) Troponin <0.02(DEC 07) CK MB 1.7(DEC 07) Total CK 94(DEC 07) Extracted from: Title: History and Physical Author: Derek Tabares DO Date: 12/08/16 Assessment/Plan Acute pyelonephritis possible pyelo from uti.Review of cultures, will start on rocephin per urine cx although unclear organism in one culture and and zyvox for enterococcus (VRE) in another culture. Benign essential HTN cont home meds oncelisted. Diabetes ssi, dm diet GI bleed stable, result of DM med use per patient. 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 Orders: acetaminophen, 650 mg, Route: PO, Drug form: TAB, Q4H, Dosing Weight 114.545, kg, PRN Pain 1-3/Temp > 100.4 F, Start date: 12/08/16 1:48:00 BORING MACHINE SET UP OPERATOR, Duration: 30 day, Stop date: 01/07/17 1:47:00 BORING MACHINE SET UP OPERATOR acetaminophen-hydrocodone 325 mg-5 mg oral tablet, 2 tab, Route: PO, Drug Form: TAB, Dosing Weight 114.545, kg, Q4H, PRN Pain Score 7-10, Start date: 12/08/16 1:48:00 BORING MACHINE SET UP OPERATOR, Duration: 30 day, Stop date: 01/07/17 1:47:00 BORING MACHINE SET UP OPERATOR acetaminophen-hydrocodone 325 mg-5 mg oral tablet, 1 tab, Route: PO, Dosing Weight 114.545, kg, Q4H, PRN Pain Score 4-6, Start date: 12/08/16 1:48:00 BORING MACHINE SET UP OPERATOR, Duration: 30 day, Stop date: 01/07/17 1:47:00 BORING MACHINE SET UP OPERATOR Dextrose 50% Syringe, 25 mL, Route: IVP, Dosing Weight 114.545, kg, PRN, PRN Blood Glucose Results, Start date: 12/08/16 1:47:00 BORING MACHINE SET UP OPERATOR, Duration: 30 day, Stop date: 01/07/17 1:46:00 BORING MACHINE SET UP OPERATOR Dextrose 50% Syringe, 50 mL, Route: IVP, Dosing Weight 114.545, kg, PRN, PRN Blood Glucose Results, Start date: 12/08/16 1:47:00 BORING MACHINE SET UP OPERATOR, Duration: 30 day, Stop date: 01/07/17 1:46:00 BORING MACHINE SET UP OPERATOR docusate, 100 mg, Route: PO, BID, Dosing Weight 114.545, kg, PRN Constipation, Start date: 12/08/16 1:48:00 BORING MACHINE SET UP OPERATOR, Duration: 30 day, Stop date: 01/07/17 1:47:00 BORING MACHINE SET UP OPERATOR enoxaparin, 40 mg, Route: SUB-Q, Drug form: INJ, [id number], Dosing Weight 114.545, kg, Consider for obese patients, Start date: 12/08/16 2:00:00 BORING MACHINE SET UP OPERATOR, Duration: 30 day, Stop date: 01/06/17 14:00:00 BORING MACHINE SET UP OPERATOR glucagon, 1 mg, Route: IM, PRN, Dosing Weight 114.545, kg, PRN Blood Glucose Results, Start date: 12/08/16 1:47:00 BORING MACHINE SET UP OPERATOR, Duration: 30 day, Stop date: 01/07/17 1:46:00 BORING MACHINE SET UP OPERATOR insulin aspart, 6 unit, Route: SUB-Q, TID-Before Meals, Dosing Weight 114.545, kg, PRN Blood Glucose Results, Start date: 12/08/16 1:47:00 BORING MACHINE SET UP OPERATOR, Duration: 30 day, Stop date: 01/07/17 1:46:00 BORING MACHINE SET UP OPERATOR insulin aspart, 8 unit, Route: SUB-Q, TID-Before Meals, Dosing Weight 114.545, kg, PRN Blood Glucose Results, Start date: 12/08/16 1:47:00 BORING MACHINE SET UP OPERATOR, Duration: 30 day, Stop date: 01/07/17 1:46:00 BORING MACHINE SET UP OPERATOR insulin aspart, 2 unit, Route: SUB-Q, TID-Before Meals, Dosing Weight 114.545, kg, PRN Blood Glucose Results, Start date: 12/08/16 1:47:00 BORING MACHINE SET UP OPERATOR, Duration: 30 day, Stop date: 01/07/17 1:46:00 BORING MACHINE SET UP OPERATOR insulin aspart, 4 unit, Route: SUB-Q, TID-Before Meals, Dosing Weight 114.545, kg, PRN Blood Glucose Results, Start date: 12/08/16 1:47:00 BORING MACHINE SET UP OPERATOR, Duration: 30 day, Stop date: 01/07/17 1:46:00 BORING MACHINE SET UP OPERATOR insulin aspart, 10 unit, Route: SUB-Q, TID-Before Meals, Dosing Weight 114.545, kg, PRN Blood Glucose Results, Start date: 12/08/16 1:47:00 BORING MACHINE SET UP OPERATOR, Duration: 30 day, Stop date: 01/07/17 1:46:00 BORING MACHINE SET UP OPERATOR Lactated Ringers Injection IV 1000 mL, 1,000 mL, Rate: 100 ml/hr, Infuse over: 10 hr, Route: IV, Dosing Weight 114.545 kg, Total Volume: 1,000, Start date: 12/08/16 1:48:00 BORING MACHINE SET UP OPERATOR, Duration: 30 day, Stop date: 01/07/17 1:47:00 BORING MACHINE SET UP OPERATOR ondansetron, 4 mg, Route: IVP, Q6H, Dosing Weight 114.545, kg, PRN Nausea & Vomiting, Start date: 12/08/16 1:48:00 BORING MACHINE SET UP OPERATOR, Duration: 30 day, Stop date: 01/07/17 1:47:00 BORING MACHINE SET UP OPERATOR Saline Flush 0.9%, 10 ml, Route: IVP, Drug Form: INJ, Dosing Weight 114.545, kg, PRN, PRN Line Flush, Start date: 12/08/16 1:48:00 BORING MACHINE SET UP OPERATOR, Duration: 30 day, Stop date: 01/07/17 1:47:00 BORING MACHINE SET UP OPERATOR Up with Assistance Basic Metabolic Panel Bedrest with BRP CDM Admission Acute Care Post ED CDM Aspart (Novolog) for Medium Correction Doses CDM Common IV Orders CDM Insulin Sub-Q Orders for patients on Oral Nutrition Complete Blood Count w/ Diff and Platelet Diet Carbohydrate Controlled Hypoglycemia Management Hypoglycemia Management Intake and Output Notify MD Notify MD Notify MD Notify MD Provide Education AC4 Patient Education AC4 Point of Care Blood Glucose AC4 Point of Care Blood Glucose AC4 Pulse Oximetry Spot Check by Nurse Resuscitation (Code) Status SCD Application Vital Signs Weigh patient AC4 Prophylaxis lovenox Disposition pending resolution of UTI, trend temp
--- OUTSIDE RECORDS SUMMARY | 2019-03-23 18:40 | XMS REPORT | Summary of Care ---
Author Author [facility] Address Unknown Phone Unavailable Encounter KENROY Aguayo(JOVANNY) [id number] Date(s): 02/10/17 - 02/12/17 [facility] [id number] [place] [address]- Discharge Disposition: Home or Self Care Attending Physician: Faisal Nuñez MD Admitting Physician: Faisal Nuñez MD Vital Signs 1 2 3 Most recent to oldest [Reference Range]: 167.64 cm (02/10/17 10:45 AM) 165.1 cm (02/10/17 8:16 AM) 167.64 cm (02/10/17 8:14 AM) Height 105.455 kg (02/10/17 8:16 AM) Current Weight 97.6 DegF (02/12/17 3:14 PM) 98.2 DegF (02/12/17 12:38 PM) 97.8 DegF (02/12/17 9:00 AM) Temperature Oral [96.4-99.1 DegF] 140/92 mmHg (02/12/17 3:14 PM) 142/87 mmHg *HI* (02/12/17 12:38 PM) 100/64 mmHg (02/12/17 9:00 AM) Blood Pressure [90-140/60-90 mmHg] 18 BRMIN (02/12/17 3:14 PM) 18 BRMIN (02/12/17 12:38 PM) 18 BRMIN (02/12/17 9:00 AM) Respiratory Rate [14-20 BRMIN] 89 bpm (02/12/17 3:14 PM) 92 bpm (02/12/17 12:38 PM) 96 bpm (02/12/17 9:00 AM) Peripheral Pulse Rate [60-100 bpm] 105.455 kg (02/10/17 10:45 AM) 105.455 kg (02/10/17 8:14 AM) Weight 37.52 m2 (02/10/17 10:45 AM) 37.52 m2 (02/10/17 8:14 AM) Body Mass Index Problem List Condition [...] Active VRE(Confirmed)6 Active 1heart 2Data migrated from [employer] on 07/11/15. - in urine 4Problem added by Discern Expert. 5Data migrated from [employer] on 07/11/15. 6Problem added by Discern Expert. Allergies, Adverse Reactions, Alerts Substance Reaction Severity Status influenza virus vaccine, Influenza virus vaccine Active inactivated Januvia Active metformin Active Medications albuterol-ipratropium 3 mL, Route: NEB, Drug Form: SOLN, Dosing Weight 109.545, kg, RQ2H, PRN as neede d for shortness of breath or wheezing, Start date: 02/10/17 7:02:00 CDT, Duratio n: 30 day, Stop date: 03/12/17 7:01:00 CDT Notes: (Same as: Dujoellenb) Start Date: 02/10/17 Stop Date: 02/12/17 Status: Discontinued cefTRIAXone + sodium chloride 0.9% INJ 100 mL 1 gm, Route: IVPB, [id number], Dosing Weight 109.545, kg, Start date: 02/11/17 5:00 :00 CDT, Duration: 30 day, Stop date: 03/12/17 5:00:00 CDT Notes: (Same As: Rocephin).Use with 100 mL NS and infuse over 30 min MEDICA TION WASTE Product Size: 1000 mgProduct Wasted: ___ mg Start Date: 02/11/17 Stop Date: 02/12/17 Status: Discontinued Dextrose 50% Syringe 25 gm, 50 mL, Route: IVP, Drug Form: INJ, Dosing Weight 105.455, kg, PRN, PRN Bl ood Glucose Results, Start date: 02/10/17 12:47:00 CDT, Duration: 30 day, Stop d ate: 03/12/17 12:46:00 CDT Start Date: 02/10/17 Stop Date: 02/12/17 Status: Discontinued Dextrose 50% Syringe 12.5 gm, 25 mL, Route: IVP, Drug Form: INJ, Dosing Weight 105.455, kg, PRN, PRN Blood Glucose Results, Start date: 02/10/17 12:47:00 CDT, Duration: 30 day, Stop date: 03/12/17 12:46:00 CDT Start Date: 02/10/17 Stop Date: 02/12/17 Status: Discontinued enoxaparin 40 mg, 0.4 mL, Route: SUB-Q, Drug form: INJ, [id number], Dosing Weight 109.545, kg , Start date: 02/10/17 8:00:00 CDT, Duration: 30 day, Stop date: 03/11/17 8:00:0 0 CDT Notes: (Same as: Lovenox) Start Date: 02/10/17 Stop Date: 02/12/17 Status: Discontinued glucagon 1 mg, Route: IM, Drug form: PDR/INJ, PRN, Dosing Weight 105.455, kg, PRN Blood G lucose Results, Start date: 02/10/17 12:47:00 CDT, Duration: 30 day, Stop date: 03/12/17 12:46:00 CDT Start Date: 02/10/17 Stop Date: 02/12/17 Status: Discontinued Humalog See Instructions, SUB-Q, 0 Refill(s) Start Date: 02/10/17 Status: Ordered hydrALAZINE 25 mg oral tablet 25 mg, 1 tab, Route: PO, Drug form: TAB, TID, Dosing Weight 105.455, kg, PRN Hyp ertension, Start date: 02/11/17 12:43:00 CDT, Duration: 30 day, Stop date: 03/13 12:42:00 CDT, SBP >155 Notes: (Same as: Apresoline) May interfere w/enteral feedings Take With Food. Start Date: 02/11/17 Stop Date: 02/12/17 Status: Discontinued hyoscyamine 0.125 mg, 1 tab, Route: PO, Drug form: TAB, Q4H, Dosing Weight 109.545, kg, PRN Spasm, Start date: 02/10/17 7:03:00 CDT, Duration: 30 day, Stop date: 03/12/17 7 :02:00 CDT Notes: (Same as: Levsin) Take 30 min before meal Start Date: 02/10/17 Stop Date: 02/12/17 Status: Discontinued insulin aspart 5 unit, 0.05 mL, Route: SUB-Q, Drug form: SOLN, TID-Before Meals, Start date: 16:30:00 CDT, Duration: 30 day, Stop date: 03/12/17 11:30:00 CDT Notes: Roll in palms of hands gently; Do not shake vigorously. (Same as: Manuel Garcia)"single patient use only"WASTE: F/P - Black; E - Municipal Trash Bin Stable f or 28 days at room temperature.Expires in days from Date Start Date: 02/10/17 Stop Date: 02/12/17 Status: Discontinued insulin aspart 3 unit, 0.03 mL, Route: SUB-Q, Drug form: SOLN, Bedtime, Dosing Weight 105.455, kg, PRN Blood Glucose Results, Start date: 02/10/17 12:47:00 CDT, Duration: 30 d ay, Stop date: 03/12/17 12:46:00 CDT Notes: Roll in palms of hands gently; Do not shake vigorously. (Same as: NovoJUANA G)"single patient use only"WASTE: F/P - Black; E - Municipal Trash Bin Stable f or 28 days at room temperature.Expires in days from Date Start Date: 02/10/17 Stop Date: 02/12/17 Status: Discontinued insulin aspart 4 unit, 0.04 mL, Route: SUB-Q, Drug form: SOLN, Bedtime, Dosing Weight 105.455, kg, PRN Blood Glucose Results, Start date: 02/10/17 12:47:00 CDT, Duration: 30 d ay, Stop date: 03/12/17 12:46:00 CDT Notes: Roll in palms of hands gently; Do not shake vigorously. (Same as: Manuel Garcia)"single patient use only"WASTE: F/P - Black; E - Municipal Trash Bin Stable f or 28 days at room temperature.Expires in days from Date Start Date: 02/10/17 Stop Date: 02/12/17 Status: Discontinued insulin aspart 1 unit, 0.01 mL, Route: SUB-Q, Drug form: SOLN, Bedtime, Dosing Weight 105.455, kg, PRN Blood Glucose Results, Start date: 02/10/17 12:47:00 CDT, Duration: 30 d ay, Stop date: 03/12/17 12:46:00 CDT Notes: Roll in palms of hands gently; Do not shake vigorously. (Same as: Manuel Garcia)"single patient use only"WASTE: F/P - Black; E - Municipal Trash Bin Stable f or 28 days at room temperature.Expires in days from Date Start Date: 02/10/17 Stop Date: 02/12/17 Status: Discontinued insulin aspart 2 unit, 0.02 mL, Route: SUB-Q, Drug form: SOLN, Bedtime, Dosing Weight 105.455, kg, PRN Blood Glucose Results, Start date: 02/10/17 12:47:00 CDT, Duration: 30 d ay, Stop date: 03/12/17 12:46:00 CDT Notes: Roll in palms of hands gently; Do not shake vigorously. (Same as: Manuel Garcia)"single patient use only"WASTE: F/P - Black; E - Municipal Trash Bin Stable f or 28 days at room temperature.Expires in days from Date Start Date: 02/10/17 Stop Date: 02/12/17 Status: Discontinued insulin aspart 8 unit, 0.08 mL, Route: SUB-Q, Drug form: SOLN, TID-Before Meals, Dosing Weight 105.455, kg, PRN Blood Glucose Results, Start date: 02/10/17 12:47:00 CDT, Durat ion: 30 day, Stop date: 03/12/17 12:46:00 CDT Notes: Roll in palms of hands gently; Do not shake vigorously. (Same as: Manuel Garcia)"single patient use only"WASTE: F/P - Black; E - Municipal Trash Bin Stable f or 28 days at room temperature.Expires in days from Date Start Date: 02/10/17 Stop Date: 02/12/17 Status: Discontinued insulin aspart 6 unit, 0.06 mL, Route: SUB-Q, Drug form: SOLN, TID-Before Meals, Dosing Weight 105.455, kg, PRN Blood Glucose Results, Start date: 02/10/17 12:47:00 CDT, Durat ion: 30 day, Stop date: 03/12/17 12:46:00 CDT Notes: Roll in palms of hands gently; Do not shake vigorously. (Same as: Manuel Garcia)"single patient use only"WASTE: F/P - Black; E - Municipal Trash Bin Stable f or 28 days at room temperature.Expires in days from Date Start Date: 02/10/17 Stop Date: 02/12/17 Status: Discontinued insulin aspart 10 unit, 0.1 mL, Route: SUB-Q, Drug form: SOLN, TID-Before Meals, Dosing Weight 105.455, kg, PRN Blood Glucose Results, Start date: 02/10/17 12:47:00 CDT, Durat ion: 30 day, Stop date: 03/12/17 12:46:00 CDT Notes: Roll in palms of hands gently; Do not shake vigorously. (Same as: Manuel Garcia)"single patient use only"WASTE: F/P - Black; E - Municipal Trash Bin Stable f or 28 days at room temperature.Expires in days from Date Start Date: 02/10/17 Stop Date: 02/12/17 Status: Discontinued insulin aspart 4 unit, 0.04 mL, Route: SUB-Q, Drug form: SOLN, TID-Before Meals, Dosing Weight 105.455, kg, PRN Blood Glucose Results, Start date: 02/10/17 12:47:00 CDT, Durat ion: 30 day, Stop date: 03/12/17 12:46:00 CDT Notes: Roll in palms of hands gently; Do not shake vigorously. (Same as: Manuel Garcia)"single patient use only"WASTE: F/P - Black; E - Municipal Trash Bin Stable f or 28 days at room temperature.Expires in days from Date Start Date: 02/10/17 Stop Date: 02/12/17 Status: Discontinued insulin aspart 2 unit, 0.02 mL, Route: SUB-Q, Drug form: SOLN, TID-Before Meals, Dosing Weight 105.455, kg, PRN Blood Glucose Results, Start date: 02/10/17 12:47:00 CDT, Durat ion: 30 day, Stop date: 03/12/17 12:46:00 CDT Notes: Roll in palms of hands gently; Do not shake vigorously. (Same as: Manuel Garcia)"single patient use only"WASTE: F/P - Black; E - Municipal Trash Bin Stable f or 28 days at room temperature.Expires in days from Date Start Date: 02/10/17 Stop Date: 02/12/17 Status: Discontinued insulin detemir 30 unit, 0.3 mL, Route: SUB-Q, Drug form: SOLN, Bedtime, Dosing Weight 109.545, kg, Start date: 02/10/17 21:00:00 CDT, Duration: 30 day, Stop date: 03/11/17 21: 00:00 CDT Notes: Same as LevemirDo not hold insulin without contacting prescriberWASTE: F/ P - Black; E - Municipal Tra Bin "single patient use only" Start Date: 02/10/17 Stop Date: 02/12/17 Status: Discontinued Insulin regular 5 unit, Route: SUB-Q, TID-Before Meals, Dosing Weight 105.455, kg, Start date: 0 02/10/17 16:30:00 CDT, Duration: 30 day, Stop date: 03/12/17 11:30:00 CDT Start Date: 02/10/17 Stop Date: 02/10/17 Status: Deleted lactulose 10 g/15 mL oral syrup 20 gm, 30 mL, Route: PO, Drug form: SYRP, Daily, Dosing Weight 109.545, kg, PRN Constipation, Start date: 02/10/17 7:03:00 CDT, Duration: 30 day, Stop date: 7:02:00 CDT Notes: (Same as:Chronulac) Start Date: 02/10/17 Stop Date: 02/12/17 Status: Discontinued Lasix 40 mg oral tablet 40 mg, 1 tab, Route: PO, Drug form: TAB, BID, Dosing Weight 109.545, kg, Start d ate: 02/10/17 9:00:00 CDT, Duration: 30 day, Stop date: 03/11/17 17:00:00 CDT Notes: (Same as: Lasix) May cause GI upset. Give with food or milk. Start Date: 02/10/17 Stop Date: 02/12/17 Status: Discontinued Levaquin 500 mg oral tablet 500 mg=1 tab, PO, Q24H, X 10 day, # 10 tab, 0 Refill(s), Pharmacy: [facility] [id number] Start Date: 02/12/17 Stop Date: 02/22/17 Status: Ordered lisinopril 30 mg, 1.5 tab, Route: PO, Drug form: TAB, Daily, Dosing Weight 109.545, kg, Sta rt date: 02/10/17 9:00:00 CDT, Duration: 30 day, Stop date: 03/11/17 9:00:00 CDT Notes: (Same as: Prinivil, Zestril) Start Date: 02/10/17 Stop Date: 02/12/17 Status: Discontinued Lyrica 75 mg, 1 cap, Route: PO, Drug form: CAP, BID, Dosing Weight 109.545, kg, Start d ate: 02/10/17 9:00:00 CDT, Duration: 30 day, Stop date: 03/11/17 17:00:00 CDT Notes: (Same as: Lyrica) Start Date: 02/10/17 Stop Date: 02/12/17 Status: Discontinued morphine Sulfate 4 mg, Route: IVP, ONCE, Dosing Weight 109.545, kg, Priority: STAT, Start date: 0 02/10/17 1:59:00 CDT, Stop date: 02/10/17 1:59:00 CDT Start Date: 02/10/17 Stop Date: 02/10/17 Status: Completed ondansetron 4 mg, Route: IVP, ONCE, Dosing Weight 109.545, kg, Priority: STAT, Start date: 0 02/10/17 1:59:00 CDT, Stop date: 02/10/17 1:59:00 CDT Start Date: 02/10/17 Stop Date: 02/10/17 Status: Completed PARoxetine 10 mg, 1 tab, Route: PO, Drug form: TAB, Daily, Dosing Weight 109.545, kg, Start date: 02/10/17 9:00:00 CDT, Duration: 30 day, Stop date: 03/11/17 9:00:00 CDT Notes: (Same as: Paxil) Start Date: 02/10/17 Stop Date: 02/12/17 Status: Discontinued PARoxetine 10 mg oral tablet 10 mg=1 tab, PO, Daily, # 30 tab, 0 Refill(s) Start Date: 02/10/17 Status: Ordered Rocephin 1 gm, Route: IVPB, Drug form: PDR/INJ, ONCE, Dosing Weight 109.545, kg, Priority : STAT, Start date: 02/10/17 4:41:00 CDT, Stop date: 02/10/17 4:41:00 CDT Start Date: 02/10/17 Stop Date: 02/10/17 Status: Completed Saline Flush 0.9% 10 mL, Route: IVP, Drug Form: INJ, Dosing Weight 109.545, kg, PRN, PRN Line Flus h, Start date: 02/10/17 1:59:00 CDT, Duration: 30 day, Stop date: 03/12/17 1:58: 00 CDT Notes: (Same as: BD Posiflush) Start Date: 02/10/17 Stop Date: 02/12/17 Status: Discontinued Senna S oral tablet 2 tab, PO, Bedtime, X 30 day, # 60 tab, 0 Refill(s), Pharmacy: [facility] [id number] Start Date: 02/12/17 Stop Date: 03/14/17 Status: Ordered Senokot 8.6 mg, 1 tab, Route: PO, Drug Form: TAB, Dosing Weight 105.455, kg, BID, PRN Co nstipation, Start date: 02/11/17 16:22:00 CDT, Duration: 30 day, Stop date: 02/16 06/02 16:21:00 CDT Notes: (Same as: Senokot) Start Date: 02/11/17 Stop Date: 02/12/17 Status: Discontinued Sodium Chloride 0.9% (Bolus) IV 1,000 mL, 2,000 ml/hr, Infuse Over: 30 minutes, Route: IV, ONCE, Priority: STAT, Dosing Weight 109.545 kg, Start date: 02/10/17 1:59:00 CDT, Duration: 1 doses or times, Stop date: 02/10/17 1:59:00 CDT Start Date: 02/10/17 Stop Date: 02/10/17 Status: Completed tramadol 50 mg oral tablet 50 mg, 1 tab, Route: PO, Drug form: TAB, Q12H, Dosing Weight 109.545, kg, PRN Pa in Score 6-10, Start date: 02/10/17 7:03:00 CDT, Duration: 30 day, Stop date: 7:02:00 CDT Notes: Not to exceed 400mg/day. (Same As: Ultram) Start Date: 02/10/17 Stop Date: 02/12/17 Status: Discontinued Results ELECTROLYTES Most recent to 1 oldest [Reference Range]: Sodium Lvl [135-145 138 mEq/L mEq/L] (02/10/17 2:24 AM) Potassium Lvl 3.8 mEq/L [3.5-5.1 mEq/L] (02/10/17 2:24 AM) Chloride Lvl [95-109 102 mEq/L mEq/L] (02/10/17 2:24 AM) CO2 [24-32 mEq/L] 26 mEq/L (02/10/17 2:24 AM) AGAP [10.0-20.0 13.8 mEq/L mEq/L] (02/10/17 2:24 AM) CHEM PANEL Most recent to 1 oldest [Reference Range]: Creatinine Lvl 1.10 mg/dL [0.50-1.40 mg/dL] (02/10/17 2:24 AM) eGFR 54 mL/min/1.73m2 1 *NA* (02/10/17 2:24 AM) BUN [7-22 mg/dL] 27 mg/dL *HI* (02/10/17 2:24 AM) Glucose Lvl [70-99 188 mg/dL mg/dL] *HI* (02/10/17 2:24 AM) Total Protein 7.7 g/dL [6.4-8.4 g/dL] (02/10/17 2:24 AM) Albumin Lvl [3.5-5.0 2.8 g/dL g/dL] *LOW* (02/10/17 2:24 AM) Globulin [2.7-4.2 4.9 g/dL g/dL] *HI* (02/10/17 2:24 AM) A/G Ratio [0.7-1.6] 0.6 *LOW* (02/10/17 2:24 AM) Calcium Lvl 8.3 mg/dL [8.5-10.5 mg/dL] *LOW* (02/10/17 2:24 AM) ALT [0-65 unit/L] 19 unit/L (02/10/17 2:24 AM) AST [0-37 unit/L] 18 unit/L (02/10/17 2:24 AM) Alk Phos [39-136 116 unit/L unit/L] (02/10/17 2:24 AM) Bili Total [0.2-1.3 0.2 mg/dL mg/dL] (02/10/17 2:24 AM) Bili Direct [0.0-0.3 0.1 mg/dL mg/dL] (02/10/17 2:24 AM) Bili Indirect 0.1 mg/dL [0.0-1.0 mg/dL] (02/10/17 2:24 AM) Lipase Lvl [73-393 38 unit/L unit/L] *LOW* (02/10/17 2:24 AM) 1Result Comment: The eGFR is calculated [...] 1 oldest [Reference Range]: Total CK [12-191 74 unit/L unit/L] (02/10/17 2:24 AM) CK MB [0.5-3.6 1.3 ng/mL ng/mL] (02/10/17 2:24 AM) CK MB Index 1.8 [0.0-2.5] (02/10/17 2:24 AM) Troponin-I <0.02 ng/mL [0.00-0.40 ng/mL] (02/10/17 2:24 AM) URINE AND STOOL Most recent to 1 oldest [Reference Range]: UA Turbidity [Clear] Marked *ABN* (02/10/17 3:06 AM) UA Color [Yellow] Yellow *NA* (02/10/17 3:06 AM) UA pH [5.0-8.0] 5.0 (02/10/17 3:06 AM) UA Spec Grav 1.014 [<=1.030] (02/10/17 3:06 AM) UA Glucose [Negative Negative mg/dL mg/dL] *NA* (02/10/17 3:06 AM) UA Blood [Negative] Small *ABN* (02/10/17 3:06 AM) UA Ketones [Negative Negative mg/dL mg/dL] *NA* (02/10/17 3:06 AM) UA Protein [Negative 100 mg/dL mg/dL] *ABN* (02/10/17 3:06 AM) UA Urobilinogen <=1.0 mg/dL [0.1-1.0 mg/dL] *NA* (02/10/17 3:06 AM) UA Bili [Negative] Negative *NA* (02/10/17 3:06 AM) UA Leuk Est Small [Negative] *ABN* (02/10/17 3:06 AM) UA Nitrite Positive [Negative] *ABN* (02/10/17 3:06 AM) UA WBC [0-5 /HPF] 71 /HPF *HI* (02/10/17 3:06 AM) UA RBC [0-2 /HPF] 2 /HPF (02/10/17 3:06 AM) UA Bacteria [None Many /HPF Seen /HPF] *ABN* (02/10/17 3:06 AM) UA Sq Epi [Few /LPF] Moderate /LPF *ABN* (02/10/17 3:06 AM) UA Mucus [None Seen Few /LPF /LPF] *NA* (02/10/17 3:06 AM) HEMATOLOGY Most recent to 1 oldest [Reference Range]: WBC [3.7-10.4 K/CMM] 6.1 K/CMM (02/10/17 2:24 AM) RBC [4.20-5.40 4.21 M/CMM M/CMM] (02/10/17 2:24 AM) Hgb [12.0-16.0 g/dL] 12.3 g/dL (02/10/17 2:24 AM) Hct [36.0-48.0 %] 37.5 % (02/10/17 2:24 AM) MCV [80.0-98.0 fL] 89.0 fL (02/10/17 2:24 AM) MCH [27.0-31.0 pg] 29.2 pg (02/10/17 2:24 AM) MCHC [32.0-36.0 32.8 g/dL g/dL] (02/10/17 2:24 AM) RDW [11.5-14.5 %] 13.5 % (02/10/17 2:24 AM) Platelet [133-450 201 K/CMM K/CMM] (02/10/17 2:24 AM) MPV [7.4-10.4 fL] 9.8 fL (02/10/17 2:24 AM) Segs [45.0-75.0 %] 52.0 % (02/10/17 2:24 AM) Lymphocytes 32.8 % [20.0-40.0 %] (02/10/17 2:24 AM) Monocytes [2.0-12.0 10.7 % %] (02/10/17 2:24 AM) Eosinophils [0.0-4.0 3.5 % %] (02/10/17 2:24 AM) Basophils [0.0-1.0 1.0 % %] (02/10/17 2:24 AM) Segs-Bands # 3.2 K/CMM [1.5-8.1 K/CMM] (02/10/17 2:24 AM) Lymphocytes # 2.0 K/CMM [1.0-5.5 K/CMM] (02/10/17 2:24 AM) Monocytes # [0.0-0.8 0.7 K/CMM K/CMM] (02/10/17 2:24 AM) Eosinophils # 0.2 K/CMM [0.0-0.5 K/CMM] (02/10/17 2:24 AM) Basophils # [0.0-0.2 0.1 K/CMM K/CMM] (02/10/17 2:24 AM) PT [12.0-14.7 12.8 seconds seconds] (02/10/17 2:24 AM) INR [0.85-1.17] 0.94 (02/10/17 2:24 AM) PTT [22.9-35.8 21.3 seconds seconds] *LOW* (02/10/17 2:24 AM) Immunizations Not Given Vaccine Date Status [...] Extracted from: Title: Clinical Document Author: Faisal Nuñez MD Date: 02/11/17 Medicine Progress Daily Chief Complaint: Subjective & Interval history: Patient seen and examined. Objective: Vital Signs (last 24 hrs) Last Charted Temp Oral98.0 DegF (FEB 11 16:12) Heart Rate [id number] bpm (FEB 11 16:12) Resp Rate 16 BRMIN (FEB 11 16:12) SBPH 146mmHg (FEB 11 16:12) DBP68 mmHg (FEB 11 16:12) TbU950 % (FEB 11 16:12) Medications and labs reviewed as below. PHYSICAL EXAM: GENERAL: AAO NAD HEENT: NCAT, perrl, eomi NECK: Supple, midline trachea LUNGS: CTAB, No rales, rhonchi or wheezes. non labored breathing. CARDIOVASCULAR: S1, S2 normal. No M/G/R. ABDOMEN: Soft, ND, NT. BS + EXTREMITIES: No C/C , or Edema SKIN: No rashes. MUSCULOSKELETAL: Moving all extremities. Neuro: No new motor or sensory deficits IMPRESSION: Acute complicated urinary tract infection Diabetes mellitus II, uncontrolled, with gastroparesis and retinopathy Hypertension Debility Diarrhea PLAN & TREATMENT continue abx follow cultures continue home meds Bowel regimen. Fall precautions. For details see orders. Plan of care discussed with Disposition: Input/Output RecordInOutBal 01/2824hr Tot 240 0 240 4hr Tot 700 0 700 Scheduled Meds (8):PARoxetine, cefTRIAXone + sodium chloride 0.9% INJ 100 mL, enoxaparin, furosemide (Lasix 40 mg oral tablet), insulin aspart, insulin detemir, lisinopril, pregabalin (Lyrica) Unscheduled Meds: None PRN Meds (19):Dextrose 50% in Water IV (Dextrose 50% Syringe), Dextrose 50% in Water IV (Dextrose 50% Syringe), albuterol-ipratropium, glucagon, hydrALAZINE (hydrALAZINE 25 mg oral tablet), hyoscyamine, insulin aspart, insulin aspart, insulin aspart, insulin aspart, insulin aspart, insulin aspart, insulin aspart, insulin aspart, insulin aspart, lactulose (lactulose 10 g/15 mL oral syrup), senna (Senokot), sodium chloride (Saline Flush 0.9%), tramadol (tramadol 50 mg oral tablet) One Time Meds: None Continuous Infusions: None Labs (Last four charted values) WBC 6.1(FEB 10) Hgb 12.3(FEB 10) Hct 37.5(FEB 10) Plt 201(FEB 10) Na 138(FEB 10) K 3.8(FEB 10) CO2 26(FEB 10) Cl 102(FEB 10) Cr 1.10(FEB 10) BUN H 27(FEB 10) Glucose Random H 188(FEB 10) Ca L 8.3(FEB 10) PT 12.8(FEB 10) INR 0.94(FEB 10) PTT L 21.3(FEB 10) Troponin <0.02(FEB 10) CK MB 1.3(FEB 10) Total CK 74(FEB 10) Extracted from: Title: [facility] Author: Sae Sanchez MD Date: 02/10/17 Hospitalist Admission History and Physical [facility] Hospitalist Admission History and Physical PATIENT NAME: KAREN ZUÑIGA ATTENDING PHYSICIAN: FAISAL NUÑEZ MD DATE OF ADMISSION: 02/10/2017 CODE STATUS: FULL CODE CHIEF COMPLAINT: Lower abdominal pain HISTORY OF PRESENT ILLNESS: This is a very pleasant 61 year old woman with history of diabetes mellitus II with probable gastroparesis, history of gastroesophageal reflux disease, history of hypertension, VRE urinary tract infection, history of hysterectomy with mesh placement that presents to the emergency room due to lower abdominal pain. The patient reports she was recently in a rehab facility and was released. While there, she dealt with constipation, for which she was given numerous medications including enemas with relief occurring only recently, however she began to have diarrhea thereafter, and some of this got in her genital area. She started having pain in her lower abdomen and noted a foul smell to her urine and for this reason sought futher medical attention. She was evaluated in the emergency room and felt to have evidence of a urinary tract infection, prompting request for admission. REVIEW OF SYSTEMS: As per HPI above, otherwise negative for a 12 point review of systems. HOME MEDICATIONS: Please see home medication reconciliation for details. PAST MEDICAL HISTORY: Syncope Degenerative disc disease Thyroid disorder Catheterization Overactive bladder PAST SURGICAL HISTORY: Abdominal hysterectomy Abdominoplasty and liposuction Suspension of bladder Laparoscopic adjustable gastric banding Cholecystectomy FAMILY HISTORY: Father: High blood pressure; Type 2 diabetes mellitus Mother: High blood pressure; Type 2 diabetes mellitus Brother: High blood pressure; Renal disease; Type 2 diabetes mellitus ALLERGIES: Allergies: Januvia, metformin, influenza virus vaccine, inactivated(Influenza virus vaccine) SOCIAL HISTORY: Alcohol Details: Never Tobacco Details: Use: Never smoker. Tobacco smoke exposure: None. Did the Patient Smoke Cigarettes Anytime During the Last 365 Days? Yes. Cessation Counseling Provided? Yes. Details: Use: Never smoker. Tobacco smoke exposure: None. Did the Patient Smoke Cigarettes Anytime During the Last 365 Days? No. Cessation Counseling Provided? No. Substance Abuse Details: Use: None. PHYSICAL EXAMINATION: Vitals and Temp: VitalsTmp(F)[id number] 02/10 05:[id number]--- 02/10 05:[id number]--- 02/10 02:32----[id number]--- 02/10 01:[id number]--- 24 Hr Tmax: 98F (36.67c) at 02/10 05:07Vital Signs are the last 5 in the past 48 hours. General: Sitting at side of bed. No acute distress. HEENT: PERRLA, EOMI, MMM, oropharynx clear without evidence of ulceration, dentition is fair Neck: Supple, without lymphadenopathy, tracheal deviation or thyromegaly Chest: Clear to auscultation bilaterally, without adventitious sounds. Heart: Regular rate and rhythm, without auscultated murmurs, rubs or gallops Abdomen: Soft, tender to palpation in the suprapubic and supraumbilical regions, nondistended, normal active bowel sounds Skin: Clear without evidence of rash, excoriation, suspicious lesion Psych: unable to assess Extremities: No clubbing cyanosis; trace edema is present WBC 6.1(FEB 10) Hgb 12.3(FEB 10) Hct 37.5(FEB 10) Plt 201(FEB 10) Na 138(FEB 10) K 3.8(FEB 10) CO2 26(FEB 10) Cl 102(FEB 10) Cr 1.10(FEB 10) BUN H 27(FEB 10) Glucose Random H 188(FEB 10) Ca L 8.3(FEB 10) PT 12.8(FEB 10) INR 0.94(FEB 10) PTT L 21.3(FEB 10) Troponin <0.02(FEB 10) CK MB 1.3(FEB 10) Total CK 74(FEB 10) Scheduled Meds (7):PARoxetine, cefTRIAXone + sodium chloride 0.9% INJ 100 mL, enoxaparin, furosemide (Lasix 40 mg oral tablet), insulin detemir, lisinopril, pregabalin (Lyrica) Unscheduled Meds: None PRN Meds (5):albuterol-ipratropium, hyoscyamine, lactulose (lactulose 10 g/15 mL oral syrup), sodium chloride (Saline Flush 0.9%), tramadol (tramadol 50 mg oral tablet) One Time Meds (4):(Completed) Sodium Chloride 0.9% IV (Sodium Chloride 0.9% (Bolus) IV), (Completed) cefTRIAXone (Rocephin), (Completed) morphine Sulfate, (Completed) ondansetron Continuous Infusions: None ASSESSMENT: Acute complicated urinary tract infection Diabetes mellitus II, uncontrolled, with gastroparesis Hypertension Debility PLAN: Continue ceftriaxone. Follow cultures. Continue present home regimen of insulin detemir with SSI. Resume home medication of lisinopril 30 mg daily. May need uptitration. PT ordered DISPO. At least 2 midnights hospitalization is anticipated. [facility] Hospital[facility] Service is primary. Call [phone]. [address] Nuñez is the admitting attending and has been made aware of this patient's admission and will assume care of the patient at 7:00 AM on 02/10/2017.
--- OUTSIDE RECORDS SUMMARY | 2019-03-23 18:40 | XMS REPORT | Summary of Care ---
Author Author [facility] Organization [facility] Address Unknown Phone Unavailable Encounter KENROY Aguayo(JOVANNY) [id number] Date(s): 01/15/17 - 01/16/[address] [facility] [address] [place] [address]- Discharge Diagnosis: Head injury Discharge Diagnosis: Fall Discharge Disposition: Home or Self Care Attending Physician: Suzan Snell DO Vital Signs 1 2 3 Most recent to oldest [Reference Range]: 167.64 cm (01/15/17 11:39 PM) Height 98.2 DegF (01/16/17 4:08 AM) 97.8 DegF (01/15/17 11:39 PM) Temperature Oral [96.4-99.1 DegF] 180/88 mmHg *HI* (01/16/17 4:08 AM) 201/83 mmHg *HI* (01/16/17 3:30 AM) 184/104 mmHg *HI* (01/15/17 11:39 PM) Blood Pressure [90-140/60-90 mmHg] 17 BRMIN (01/16/17 4:08 AM) 17 BRMIN (01/16/17 3:30 AM) 18 BRMIN (01/15/17 11:39 PM) Respiratory Rate [14-20 BRMIN] 85 bpm (01/16/17 4:08 AM) 88 bpm (01/16/17 3:30 AM) 88 bpm (01/15/17 11:39 PM) Peripheral Pulse Rate [60-100 bpm] 109.545 kg (01/15/17 11:39 PM) Weight 38.98 m2 (01/15/17 11:39 PM) Body Mass Index Problem List Condition [...] Active VRE(Confirmed)6 Active 1heart 2Data migrated from [id number] on 07/11/15. - in urine 4Problem added by Discern Expert. 5Data migrated from [employer] on 07/11/15. 6Problem added by Discern Expert. Allergies, Adverse Reactions, Alerts Substance Reaction Severity Status influenza virus vaccine, Influenza virus vaccine Active inactivated Januvia Active metformin Active Medications acetaminophen-hydrocodone 325 mg-5 mg oral tablet 1 tab, Route: PO, Drug Form: TAB, Dosing Weight 109.545, kg, ONCE, STAT, Start d ate: 01/16/17 0:07:00 HIGH HEEL BUILDER, Stop date: 01/16/17 0:07:00 HIGH HEEL BUILDER Notes: (Same as: [place] 325/5) Do not exceed 4gm/day of acetaminophen. Start Date: 01/16/17 Stop Date: 01/16/17 Status: Completed acetaminophen-hydrocodone 325 mg-5 mg oral tablet 1 tab, Route: PO, Drug Form: TAB, Dosing Weight 109.545, kg, ONCE, STAT, Start d ate: 01/16/17 3:39:00 HIGH HEEL BUILDER, Stop date: 01/16/17 3:39:00 HIGH HEEL BUILDER Start Date: 01/16/17 Stop Date: 01/16/17 Status: Completed cloNIDine 0.1 mg oral tablet 0.1 mg, Route: PO, Drug form: TAB, ONCE, Dosing Weight 109.545, kg, Priority: ST AT, Start date: 01/16/17 3:42:00 HIGH HEEL BUILDER, Stop date: 01/16/17 3:42:00 HIGH HEEL BUILDER Start Date: 01/16/17 Stop Date: 01/16/17 Status: Completed ketOROLAC 30 mg, Route: IM, Drug form: INJ, ONCE, Dosing Weight 109.545, kg, Priority: STA T, Start date: 01/16/17 2:55:00 HIGH HEEL BUILDER, Stop date: 01/16/17 2:55:00 HIGH HEEL BUILDER Start Date: 01/16/17 Stop Date: 01/16/17 Status: Completed Motrin 600 mg oral tablet 600 mg=1 tab, PO, Q6H, PRN Pain, take with food, X 3 day, # 12 tab, 0 Refill(s) Start Date: 01/16/17 Stop Date: 01/19/17 Status: Ordered Robaxin 1,000 mg, 2 tab, Route: PO, Drug form: TAB, ONCE, Dosing Weight 109.545, kg, Sta rt date: 01/16/17 2:56:00 HIGH HEEL BUILDER, Stop date: 01/16/17 2:56:00 HIGH HEEL BUILDER Notes: (Same as:Robaxin) Start Date: 01/16/17 Stop Date: 01/16/17 Status: Completed Robaxin-750 oral tablet 750 mg=1 tab, PO, Q8H, PRN Spasms, X 5 day, # 15 tab, 0 Refill(s) Start Date: 01/16/17 Stop Date: 01/21/17 Status: Ordered tramadol 50 mg oral tablet 50 mg=1 tab, PO, Q4H, PRN Pain, X 5 day, # 24 tab, 0 Refill(s) Start Date: 01/16/17 Stop Date: 01/21/17 Status: Ordered Results No data available for [...]
--- OUTSIDE RECORDS SUMMARY | 2019-03-23 18:41 | XMS REPORT ---
Author Author Faisal Joseph Organization [employer] Address Unknown Phone Unavailable Care Team Providers Care Principal Examiner Name Role Phone Faisal Joseph CP Unavailable Allergies, Adverse Reactions, Alerts Substance Reaction Event Type pneomonia vaccine Info Not Available Drug Allergy flu vaccine Info Not Available Drug Allergy Metformin HCl Info Not Available Drug Allergy Problems Problem Type Condition Code Onset Dates Condition Status Assessment Anxiety disorder, unspecified F41.9 Active Assessment Essential hypertension I10 Active Assessment Major depressive disorder, single episode, unspecified F32.9 Active Assessment Recurrent UTI N39.0 Active Problem Major depressive disorder, single episode, unspecified F32.9 Active Problem Type 2 diabetes mellitus without complication, unspecified 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 Active Problem Anxiety disorder, unspecified F41.9 Active Assessment Type 2 diabetes mellitus without complication, unspecified 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 Active Assessment Neuropathy G62.9 Active Problem Neuropathy G62.9 Active Problem Essential hypertension I10 Active Medications Medication Code System Code Instructions Start Date End Date Status Dosage Metronidazole [facility] [address]-66 500 MG Orally three times a day Active 1 tablet NovoLog Flexpen [facility] [address]-64 100 UNIT/ML Subcutaneous 30 UNITS Active not defined Methenamine Hippurate [facility] [address]-49 1 GM Orally Twice a day Active 1 tablet Tramadol-Acetaminophen [facility] [address]-10 37.5-325 MG Orally every 6 hrs Active 2 tablets as needed Levofloxacin [facility] [address]-16 250 MG Orally Once a day Active 1 tablet Lisinopril [facility] [address]-83 30 MG Orally Once a day Active 1 tablet Furosemide [facility] [address]-32 20 MG Orally Once a day Active 1 tablet Gabapentin [facility] [address]-57 100 MG Orally three times a day (tid) February 20, 2017 Active 1 capsule Paxil [facility] [address]-67 20 MG Orally Once a day Dec 30, 2016 Active 1 tablet in the morning Lyrica [facility] [address]-16 50 MG Orally Twice a day Active 1 capsule Levemir Flex touch NDC 0 100 units intradermal as directed April 24, 2017 Active 30 units NovoLog Flexpen [facility] [address]-94 100 UNIT/ML 30 units Subcutaneous three times a day (tid) Nov 25, 2016 Active as directed OneTouch Ultra Test NDC 0 In Vitro 3-4 times daily February 10, 2017 Active as directed Vital Signs Date/Time: February 20, 2017 BMI 39.06 Index Weight 242 lbs Height 66 in Temperature 95.5 F Blood Pressure Diastolic 80 mm Hg Blood Pressure Systolic 115 mm Hg Results No Known Results Summary Purpose [employer] Submission
--- OUTSIDE RECORDS SUMMARY | 2019-03-23 18:41 | XMS REPORT ---
Author Author Faisal Joseph Organization [employer] Address Unknown Phone Unavailable Care Team Providers Care Cytotechnologist Supervisor Name Role Phone Faisal Joseph CP Unavailable Allergies, Adverse Reactions, Alerts Substance Reaction Event Type pneomonia vaccine Info Not Available Drug Allergy flu vaccine Info Not Available Drug Allergy Metformin HCl Info Not Available Drug Allergy Encounters Encounter Location Date Sick Visit [place] Nov 29, 2016 Problems Problem Type Condition ICD-9 Code Onset Dates Condition Status Problem Neuropathy G62.9 Active Problem Essential hypertension I10 Active Problem Type 2 diabetes mellitus without complication, unspecified senior care insulin use status E11.9 Active Assessment Neuropathy G62.9 Active Assessment Recurrent UTI N39.0 Active Assessment Preoperative clearance Z01.818 Active Assessment Essential hypertension I10 Active Medications Medication Code System Code Instructions Start Date End Date Status Dosage Levemir Flex touch Unknown 0 100 units intradermal as directed April 24, 2017 Active 30 units Lisinopril [facility] [address]-19 30 MG Orally Once a day Active 1 tablet NovoLog Flexpen [facility] [address]-96 100 UNIT/ML Subcutaneous 30 UNITS Active Unknown NovoLog Flexpen [facility] [address]-29 100 UNIT/ML 30 units Subcutaneous three times a day (tid) Nov 25, 2016 Active as directed [facility] [address]-00 20 MG Orally Once a day Active 1 tablet Tramadol-Acetaminophen [facility] [address]-20 37.5-325 MG Orally every 6 hrs Active 2 tablets as needed Social History Social History Element Qualifiers Date Reported Tobacco Use: . Are you a: never smoker Nov 29, 2016 Marital Status: . Nov 29, 2016 Caffeine intake? . Status: No Nov 29, 2016 Do you exercise? . Answer: No Nov 29, 2016 Do you drink alcohol? . Do you drink alcohol? No Nov 29, 2016 Occupation: . Disabled Nov 29, 2016 Vital Signs Date/Time: Nov 29, 2016 Weight 259 lbs Height 66 in Temperature 97.5 F Blood Pressure Diastolic 91 mm Hg Blood Pressure Systolic 149 mm Hg Results HEMOGLOBIN A1c Summary Purpose [employer] Submission
--- OUTSIDE RECORDS SUMMARY | 2019-03-23 18:41 | XMS REPORT ---
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 insulin Z79.4 Active Problem Anxiety disorder, unspecified F41.9 Active Problem Type 2 diabetes mellitus without complications E11.9 Active Problem Neuropathy G62.9 Active Problem Essential hypertension I10 Active Problem Major depressive disorder, single episode, unspecified F32.9 Active Problem Type 2 diabetes mellitus without complication, unspecified 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
--- OUTSIDE RECORDS SUMMARY | 2019-03-23 18:41 | XMS REPORT ---
[facility] Address Unknown Phone Unavailable Care Team Providers Care Nutritional Health Coach Name Role Phone Shayla ROPER Unavailable Unavailable Problems This patient has no known problems. Allergies, Adverse Reactions, Alerts This patient has no known allergies or adverse reactions. Medications This patient has no known medications. Results Test Description Test Time Test Comments Text Results Atomic Results Result Comments CHEST SINGLE (PORTABLE) 2019-03-23 17:13:00 [place] [address] Patient Name: KAREN ZUÑIGA MR #: [id number] : 1955 Age/Sex: 63/F Req #: [id number] Adm Physician: Ordered by: MALIA ROPER MD Report #: [id number] Location: ER Room/Bed: Procedure: [id number] DX/CHEST SINGLE (PORTABLE) Exam Date: Exam Time: REPORT STATUS: Signed EXAMINATION: CHEST SINGLE (PORTABLE) INDICATION: Sherley st pain. COMPARISON: None FINDINGS: TUBES and LINES: Left sided dialysis catheter with distal tips in the atrium. LUNGS: The lungs are hypoinflated. There is no evidence of pneumonia or pulmonary edema. PLEURA: No pleural effusion or pneumothorax. HEART AND MEDIASTINUM: The cardiomediastinal silhouette is unremarkable. BONES AND SOFT TISSUES: No acute osseous lesion. UPPER ABDOMEN: No free air under the diaphragm. IMPRESSION: 1. Bibasilar subsegmental atelectasis. Signed by: Dr. Alice Marvin M.D. on 03/23/2019 5:19 PM Dictated By: PERLA MARVIN MD, MD 18 Transcribed By: STAN on 03/23/191718 COPY TO: MALIA ROPER MD
--- OUTSIDE RECORDS SUMMARY | 2019-03-23 18:41 | XMS REPORT ---
Author Author Faisal Joseph Organization [employer] Address Unknown Phone Unavailable Care Team Providers Care Railroad Car Cleaner Name Role Phone Faisal Joseph CP Unavailable Allergies, Adverse Reactions, Alerts Substance Reaction Event Type pneomonia vaccine Info Not Available Drug Allergy flu vaccine Info Not Available Drug Allergy Metformin HCl Info Not Available Drug Allergy Problems Problem Type Condition Code Onset Dates Condition Status Assessment Essential hypertension I10 Active Assessment Acute on chronic systolic congestive heart failure I50.23 Active Assessment Type 2 diabetes mellitus without complication, unspecified shelter insulin use status E11.9 Active Assessment SOB (shortness of breath) R06.02 Active Assessment Major depressive disorder, single episode, unspecified F32.9 Active Problem long-term current use of insulin Z79.4 Active Problem Anxiety disorder, unspecified F41.9 Active Problem Type 2 diabetes mellitus without complications E11.9 Active Problem Neuropathy G62.9 Active Problem Essential hypertension I10 Active Problem Major depressive disorder, single episode, unspecified F32.9 Active Problem Type 2 diabetes mellitus without complication, unspecified shelter insulin use status E11.9 Active Medications Medication Code System Code Instructions Start Date End Date Status Dosage Insulin Detemir [facility] [address]-79 100 UNIT/ML Subcutaneous Active not defined Lisinopril [facility] [address]-29 10 MG Orally twice a day (bid) Active 1 tablet NovoLog Flexpen [facility] [address]-06 100 UNIT/ML Subcutaneous 30 UNITS Active 30 units every meal OneTouch Ultra Test ND 0 In Vitro 3-4 times daily February 10, 2017 Active as directed Medical Compression Stockings [facility] [address]250 - as directed daily on in am and off in pm May 12, 2017 Active as directed Paxil [facility] 46620501858 20 MG Orally Once a day Active 1 tablet in the morning Carvedilol [facility] [address]-99 3.125 MG Orally Active not defined Potassium Citrate ER [facility] [address]-68 10 MEQ (1080 MG) Orally every day (qd) Jul 28, 2017 Active 1 tablet with meals Pepcid [facility] [address]-87 20 MG Orally twice a day Active 1 tablet at bedtime Pravastatin Sodium [facility] [address]-10 20 MG Orally Once a day Active 1 tablet Levemir Flex touch [place] 0 100 units intradermal BID Oct 02, 2017 Active 35 units Furosemide [facility] [address]-81 20 MG Orally Once a day Active 1 tablet Bumex [facility] [address]-67 0.5 MG Orally Once a day Jul 28, 2017 Active 1 tablet Paroxetine HCl [facility] [address]-32 20 MG Orally Once a day Active 1 tablet in the morning Vital Signs Date/Time: Jul 28, 2017 BMI na Index Weight na lbs Height 66 in Temperature 95.6 F Blood Pressure Diastolic 89 mm Hg Blood Pressure Systolic 146 mm Hg Results No Known Results Summary Purpose [employer] Submission
--- OUTSIDE RECORDS SUMMARY | 2019-03-23 18:41 | XMS REPORT ---
Author Author Faisal Joseph Organization [employer] Address Unknown Phone Unavailable Care Team Providers Care Skiing Instructor Name Role Phone Faisal Joseph CP Unavailable Allergies No Known Allergies Problems Problem Type Condition Code Onset Dates Condition Status Problem long term care pharmacist current use of insulin Z79.4 Active Problem Anxiety disorder, unspecified F41.9 Active Problem Type 2 diabetes mellitus without complications E11.9 Active Problem Neuropathy G62.9 Active Problem Essential hypertension I10 Active Problem Major depressive disorder, single episode, unspecified F32.9 Active Problem Type 2 diabetes mellitus without complication, 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
--- OUTSIDE RECORDS SUMMARY | 2019-03-23 18:41 | XMS REPORT ---
Author Author Faisal Joseph Organization [employer] Address Unknown Phone Unavailable Care Team Providers Care Physical Chemistry Teacher Name Role Phone Faisal Joseph Unavailable Allergies, Adverse Reactions, Alerts Substance Reaction Event Type pneomonia vaccine Info Not Available Drug Allergy flu vaccine Info Not Available Drug Allergy Metformin HCl Info Not Available Drug Allergy Encounters Encounter Location Date Sick Visit [place] Nov 29, 2016 Sick Visit [place] Dec 30, 2016 Problems Problem Type Condition ICD-9 Code Onset Dates Condition Status Assessment Fall, subsequent encounter W19.XXXD Active Problem Neuropathy G62.9 Active Problem Essential hypertension I10 Active Problem Type 2 diabetes mellitus without complication, unspecified 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 Assessment Essential hypertension I10 Active Assessment Recurrent UTI N39.0 Active Assessment Type 2 diabetes mellitus without complication, unspecified 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 Assessment Neuropathy G62.9 Active Medications Medication Code System Code Instructions Start Date End Date Status Dosage Methenamine Hippurate [facility] [address]-55 1 GM Orally Twice a day Active 1 tablet Metronidazole [facility] [address]-66 500 MG Orally three times a day Active 1 tablet Tramadol-Acetaminophen [facility] [address]-33 37.5-325 MG Orally every 6 hrs Active 2 tablets as needed Lyrica [facility] [address]-34 50 MG Orally Twice a day Active 1 capsule NovoLog Flexpen [facility] [address]-60 100 UNIT/ML 30 units Subcutaneous three times a day (tid) Nov 25, 2016 Active as directed Levofloxacin [facility] [address]-66 250 MG Orally Once a day Active 1 tablet NovoLog Flexpen [facility] [address]-96 100 UNIT/ML Subcutaneous 30 UNITS Active Unknown Lisinopril [facility] [address]-82 30 MG Orally Once a day Active 1 tablet Paxil [facility] [address]-57 20 MG Orally Once a day Dec 30, 2016 Active 1 tablet in the morning Furosemide [facility] [address]-47 20 MG Orally Once a day Active 1 tablet Levemir Flex touch Unknown 0 100 units intradermal as directed April 24, 2017 Active 30 units Social History Social History Element Qualifiers Date Reported Tobacco Use: . Are you a: never smoker Dec 30, 2016 Marital Status: . Dec 30, 2016 Caffeine intake? . Status: No Dec 30, 2016 Do you exercise? . Answer: No Dec 30, 2016 Do you drink alcohol? . Do you drink alcohol? No Dec 30, 2016 Occupation: . Disabled Dec 30, 2016 Vital Signs Date/Time: Dec 30, 2016 Height 66 in Temperature 97.0 F Blood Pressure Diastolic 78 mm Hg Blood Pressure Systolic 142 mm Hg Summary Purpose eClinicalWorks Submission
[2019-03-23] MEDS: FAMOTIDINE 20 MG TAB PO SCH (19:15)
--- NOTE | 2019-03-23 20:03 | NUR ---
Received report from KONSTANTIN Villanueva nurse. patient came via stretcher. Patient is A&Ox 3. Call light within reach.
[2019-03-23 23:00] VITALS: BP 89/60
[2019-03-23] MEDS: INSULIN LISPRO 100 UNIT/1 ML 3ML VIAL SQ SCH (23:56)
[2019-03-24] VITALS (7 sets, daily range): BP systolic 89–111; BP diastolic 53–60
[2019-03-24] MEDS: MORPHINE SULFATE INJ 4 MG/ML INJ 1ML IV PRN ×2 (00:11→15:27)
[2019-03-24 02:04] LABS: CREATINE KINASE MB 1.9 ng/mL (0-5.0)
[2019-03-24] MEDS ORDERED: PAXIL10 MG PO (04:54)
[2019-03-24] MEDS ORDERED: HUMALOG100 UNIT/1 SQ (04:55)
[2019-03-24] MEDS ORDERED: NOVOLOG100 UNIT/1 SQ (04:56)
[2019-03-24 06:21] LABS: BASOPHILS # (AUTO) 0.1 (0.0-0.1); BASOPHILS % 1.1 % (0.0-1.0); EOSINOPHILS # (AUTO) 0.2 (0.0-0.4); HEMATOCRIT 39.7 % (34.2-44.1); HEMOGLOBIN 12.1 g/dL (12.0-16.0); LYMPHOCYTES # (AUTO) 0.8 (1.0-3.2); LYMPHOCYTES % 14.4 % (18.0-39.1); MEAN CORPUSCULAR HEMOGLOBIN 30.6 pg (28-32); MEAN CORPUSCULAR HGB CONC 30.5 g/dL (31-35); MEAN CORPUSCULAR VOLUME 100.3 fL (81-99); MONOCYTES # (AUTO) 0.7 (0.2-0.8); MONOCYTES % 12.1 % (4.4-11.3); NEUTROPHILS # (AUTO) 3.7 (2.1-6.9); NEUTROPHILS % 67.7 % (38.7-80.0); PLATELET COUNT 195 x10e3/uL (140-360); RED BLOOD COUNT 3.96 x10e6/uL (3.6-5.1); RED CELL DISTRIBUTION WIDTH 13.1 % (11.7-14.4)
[2019-03-24] MEDS: FAMOTIDINE 20 MG TAB PO SCH ×2 (06:28→18:14)
[2019-03-24 06:42] LABS: CREATINE KINASE MB 1.7 ng/mL (0-5.0)
[2019-03-24 06:43] LABS: ANION GAP 14.6 mmol/L (8-16); CALCIUM 8.3 mg/dL (8.4-10.2); CHOL/HDL RATIO 4.3 (3.0-3.6); CREATININE, SERUM 4.26 mg/dL (0.57-1.11); POTASSIUM 4.6 mmol/L (3.5-5.1)
--- NOTE | 2019-03-24 06:58 | NUR ---
Gave report to oncoming nurse. Patient asleep in bed. Call light within reach.
[2019-03-24] MEDS: INSULIN LISPRO 100 UNIT/1 ML 3ML VIAL SQ SCH ×4 (07:56→21:54)
[2019-03-24] MEDS: ASPIRIN 81 MG ENTERIC COATED PO SCH (09:13)
[2019-03-24] MEDS ORDERED: ONDANSETRON HCL 4 MG ORAL DISINTEGRATING TAB PO PRN (11:00)
--- NOTE | 2019-03-24 14:49 | NUR ---
see shift assess. sinus rhythm. no complaints of signs of distress.
--- NOTE | 2019-03-24 16:55 | NUR ---
Carmen from [facility] notified to put patient on schedule in am per Dr Johnson.
--- NOTE | 2019-03-24 18:28 | Consultation ---
DATE OF CONSULTATION: Cardiology Consultation REASON FOR CONSULTATION: Chest pain. HISTORY OF PRESENT ILLNESS: This is a 63-year-old woman, who has a history of end-stage renal disease on hemodialysis, morbid obesity, hypothyroidism, hypertension, diabetes mellitus, who presented to the emergency department with chest discomfort. The patient reports chest pain and pressure that occurred during dialysis with an associated hypotension during the event. The symptoms were moderate in intensity, mild relief with nitroglycerin, also reports some shortness of breath. The patient states that she saw a tool engineer approximately one year ago through the [facility] and had a stress test and ultrasound, which were within normal limits. Currently, she is feeling well, denies any ongoing chest discomfort. REVIEW OF SYSTEMS: A 12-point review of system was conducted and is negative, otherwise as stated above in the HPI. PAST MEDICAL HISTORY: As stated above in the HPI. PAST SURGICAL HISTORY: Dialysis placement. FAMILY HISTORY: No premature coronary artery disease or sudden cardiac . SOCIAL HISTORY: No illicit drug, alcohol, or tobacco use. ALLERGIES: METFORMIN. MEDICATIONS: See medication reconciliation form. PHYSICAL EXAMINATION: VITAL SIGNS: Temperature is 97.3, heart rate is 92, respirations 16, blood pressure is 108/53, oxygen saturation is 93% on room air. GENERAL: Well-appearing obese woman, lying comfortably in bed. HEAD: Normocephalic, atraumatic. EYES: The extraocular muscles are intact. Conjunctiva is clear. NECK: No JVD. No bruits. CARDIOVASCULAR: Regular rate and rhythm. No murmurs. LUNGS: Clear to auscultation. ABDOMEN: Soft, nontender, nondistended. EXTREMITIES: No clubbing or cyanosis. There is significant edema. NEUROLOGIC: Cranial nerves appear intact. LABORATORY DATA: Reviewed. Creatinine 4.26. Troponin negative x3. BNP is 36. LDL 69. A 12-lead electrocardiogram showed normal sinus rhythm, right bundle-branch block. IMPRESSION: 1. Precordial pain. 2. Obesity. 3. End-stage renal disease. 4. Hypertension. 5. Diabetes mellitus. RECOMMENDATIONS: This patient has ruled out for acute myocardial infarction. Check a 2D echocardiogram. If this is within normal limits, the patient requires no further inpatient testing. She states that she had a stress test within the [facility] one year ago and was normal. Consider other causes for her precordial pain. Avoid hypotension. Thank you for the consultation. We will follow along with you. DO KEISHA Newton/TELMA /[phone]
[2019-03-25] VITALS: BP 118/58
[2019-03-25 04:00] VITALS: BP 124/58
--- NOTE | 2019-03-25 05:52 | NUR ---
Dr. Pires rounding; pt to told MD that her BP decreases with dialysis. MD stated that she needs to speak with Inspector [facility]ating [facility] Refrig[facility] before dialysis. Spoke to pt and she stated that her BP has been dropping even without the dialysis ans she just wants to have it done. Will notify and day shift nurse. Call to be placed to [facility].
[2019-03-25] MEDS: FAMOTIDINE 20 MG TAB PO SCH (06:17)
--- NOTE | 2019-03-25 06:25 | NUR ---
called [facility] to verify pt on schedule for dialysis. Message left with answering service and they sated they will pass info along to manager transportation planning nurse.
--- NOTE | 2019-03-25 07:11 | NUR ---
pt alert resp even and unlabored at this time, no distress noted, pt siting at bedside, no c/o pain when asked, call light in reach.
[2019-03-25] MEDS: INSULIN LISPRO 100 UNIT/1 ML 3ML VIAL SQ SCH ×2 (07:30→11:30)
[2019-03-25 08:16] VITALS: BP 123/59
[2019-03-25] MEDS ORDERED: ALBUMIN 25% 25GM 100ML 0.25 GM/ML BTL IV PRN ×2 (09:00→09:15)
[2019-03-25] MEDS ORDERED: SODIUM CHLORIDE 0.9% 1000ML 1,000 ML IV SCH (09:00)
[2019-03-25] MEDS ORDERED: SODIUM CHLORIDE 0.9% 1000ML 2,000 ML ONE (09:04)
[2019-03-25] MEDS: ASPIRIN 81 MG ENTERIC COATED PO SCH (09:19)
--- NOTE | 2019-03-25 09:36 | NUR ---
dialysis started on pt tolerating well.
[2019-03-25] MEDS ORDERED: ALBUMIN 25% 12.5GM 0.25 GM/ML BTL IV PRN (11:00)
[2019-03-25] MEDS ORDERED: SODIUM CHLORIDE 0.9% 1000ML 2,000 ML IV PRN (11:00)
[2019-03-25] MEDS ORDERED: HEPARIN SOD (PORCINE) 1000 UNIT/ML SDV IV PRN (11:00)
[2019-03-25] MEDS ORDERED: SODIUM CHLORIDE 0.9% 250ML 500 ML IV PRN (11:00)
--- NOTE | 2019-03-25 14:30 | NUR ---
pt dialysis finished no distress noted at this time, v/s stable, pt tolerated well 3 liter taken off
--- NOTE | 2019-03-25 15:59 | Consultation ---
DATE OF CONSULTATION: 03/25/2019 Renal Consultation HISTORY OF PRESENT ILLNESS: A 63-year-old female with end-stage renal disease, on hemodialysis on Friday, , and Friday, who presented to [facility] with chest pain. The patient states she has to take midodrine prior to dialysis and had a drop in blood pressure during the dialysis. In addition, ever since her tunneled dialysis catheter was placed, she has been having pain in her left breast and above the catheter. Cultures were done at her dialysis center that were all negative. The patient at this time has no further complaints. REVIEW OF SYSTEMS: A 12-point review of systems was done and all systems were negative other than mentioned in the HPI. PAST MEDICAL HISTORY: 1. End-stage renal disease on hemodialysis on Friday, , and Friday. 2. Diabetes. 3. Hypertension. 4. Hypothyroidism. PAST SURGICAL HISTORY: 1. Hysterectomy. 2. Tunneled dialysis catheter. SOCIAL HISTORY: No tobacco. No alcohol. No IV drugs. FAMILY HISTORY: Strong family history of end-stage renal disease. ALLERGIES: METFORMIN. CURRENT MEDICATIONS: See list. PHYSICAL EXAMINATION: VITAL SIGNS: Blood pressure 124/58, pulse 85, respiratory rate 18, and temperature 96.8. GENERAL: No apparent distress. HEENT: Oropharynx clear. No scleral Icterus. No peripheral edema. NECK: Supple. No elevation in jugular venous pressure. No lymphadenopathy. CHEST: Clear to auscultation anteriorly and bilaterally. CARDIOVASCULAR: Regular rhythm. No murmurs or rubs. ABDOMEN: Soft. Positive bowel sounds. No tenderness. No rebound. EXTREMITIES: Trace edema. No clubbing. No cyanosis. SKIN: Warm. IMAGING: Chest x-ray clear. LABS: White count 5.4, hemoglobin 12.1, and platelets 195. Sodium 138, potassium 4.6, chloride 102, CO2 26, creatinine 4.26. BNP 36. ASSESSMENT/PLAN: 1. End-stage renal disease. Continue hemodialysis on Friday, , and Friday. 2. Slight edema on exam. We will not UF as much as she typically gets at her dialysis unit and suspect we need to establish a new dry weight. 3. Diabetes per primary team. 4. Hypertension. Blood pressure controlled. 5. Chest pain per Cardiology. 6. Anemia secondary to chronic kidney disease. We will give Epogen if hemoglobin drops below 11. MD LESTER Ott/TELMA /[id number]
--- NOTE | 2019-03-25 17:34 | NUR ---
pt discharged home no prescription iv site removed, no swelling no redness to site.
--- NOTE | 2019-03-25 22:51 | Progress Note ---
DATE: Cardiology Progress Note SUBJECTIVE: The patient denies any typical angina or shortness of breath. OBJECTIVE: VITAL SIGNS: Temperature is 96.8, heart rate is 85, respirations 18, blood pressure is 124/58, and oxygen saturation is 96% on room air. GENERAL: Well-appearing woman, lying comfortably in bed. HEAD: Normocephalic and atraumatic. LUNGS: Diminished breath sounds at the bases. ABDOMEN: Soft, obese, and nontender. EXTREMITIES: 2+ edema. CARDIOVASCULAR MEDICATIONS: Reviewed. LABORATORY DATA: Reviewed. Telemetry monitoring revealed normal sinus rhythm. IMPRESSION: 1. Precordial pain, resolved. 2. Obesity. 3. End-stage renal disease. 4. Hypertension. 5. Diabetes mellitus. RECOMMENDATIONS: The patient ruled out for acute myocardial infarction. Her echocardiogram showed preserved left ventricular systolic function. She is currently asymptomatic. Continue hemodialysis with adequate volume removal. In regard to her ischemic evaluation, she states that she had a stress test approximately one year ago at [facility] and was normal. The patient may be discharged from a cardiovascular standpoint with outpatient followup. DO KEISHA Newton/MODL /[id number]
--- NOTE | 2019-03-26 10:57 | Discharge Summary ---
DISCHARGE DIAGNOSES: 1. Chest pain, rule out myocardial infarction. 2. End-stage renal disease. 3. Hypertension. HISTORY OF PRESENT ILLNESS AND HOSPITAL COURSE: See hospital chart for full details. The patient is a lady, who has end-stage renal disease while on dialysis, had some chest pain where she stated also her blood pressure dropped. Normally, she goes to [facility], but due to the rains, she was brought over to the [facility]. The patient did rule out for UT by serial enzymes and EKG. She was seen by Cardiology, who knows that she had a stress test done a year ago that was normal. Echo here showed normal LV function. She had no further symptoms during hospitalization. She was seen by her renal doctor where she did have her dialysis and postdialysis, and once she was cleared by Cardiology and Renal, she was discharged home with followup as an outpatient and follow up with her primary medical sonographer per the patient's wishes. Please see hospital chart for full details. MD VIOLET Lyons/TELMA /[id number]
== END 2019-03-25 17:27 | disposition home or self-care (01) ==
LOC: ER 15:50 → ERHOLD 18:10 → IMCU 20:03
PROVIDERS: ADMIT Internal Medicine; ATTEND Internal Medicine
DX: R07.9 Chest pain, unspecified (principal); E11.22 Type 2 diabetes mellitus with diabetic chronic kidney disease; I12.0 Hypertensive chronic kidney disease with stage 5 chronic kidney disease or end stage renal disease; N18.6 End stage renal disease; Z99.2 Dependence on renal dialysis; E03.9 Hypothyroidism, unspecified; M50.10 Cervical disc disorder with radiculopathy, unspecified cervical region; R20.2 Paresthesia of skin; Z88.7 Allergy status to serum and vaccine; Z88.8 Allergy status to other drugs, medicaments and biological substances; F41.9 Anxiety disorder, unspecified; D63.1 Anemia in chronic kidney disease; R07.2 Precordial pain; E66.9 Obesity, unspecified; I50.32 Chronic diastolic (congestive) heart failure; Z68.41 Body mass index [BMI] 40.0-44.9, adult; Z79.4 Long term (current) use of insulin
CPT/HCPCS: 36415 ×3; 71045; 80048; 80053; 80061; 82550 ×2; 82553 ×2; 82948 ×3; 83880; 84484 ×2; 85025 ×2; 85610; 85730; 86704; 86706; 87340; 93005; 93306; 99285; G0378 ×3; J1644; J2270; J7030; P9047; Q0162